=== PATIENT | female | born 1935 | race Caucasian/White ===

== ENCOUNTER 2017-02-15 06:46 | Inpatient (IN) | payer MEDICARE, MEDICAID ==
[~2017-02-15] VITALS: Ht 149.9 cm; Wt 51.3 kg
[2017-02-15] VITALS (21 sets, daily range): BP systolic 125–164; BP diastolic 70–105; PULSE 77–177; RESP 17–32; TEMP 98.9–99.7; O2SAT 92–98
[~2017-02-15 06:46] MED LIST: AMBI5TAB PO; APIX2.5T PO; BROV15NE NEB; CARA1TAB6 PO; CARD240C6 PO; ESCI10TA PO; GLIM4TAB PO; LEVA0.3110 NEB; LEVO125T4 PO; LEVO250T3 PO; METO-309 PO; POTA10TA2 PO; REGL5TAB PO; SYMB160A INH; TORS20TA PO; TRAD5TAB PO; ZANT150T2 PO
--- NOTE | 2017-02-15 07:24 | PD ---
HPI Chief Complaint: Respiratory Distress Time Seen by Provider: 07:15 Travel History International Travel<30 days: No Contact w/Intl Traveler<30days: No Traveled to known affect area: No History of Present Illness HPI The patient is English-speaking and an preservationist was offered however the daughter has refused stating that she would do the interpretation. This is an 82-year-old female with a history of atrial fibrillation, hypertension, diabetes mellitus, hyperlipidemia who presents today with complaints of dyspnea , fever, shortness of breath. The patient's daughter states that she's been coughing with productive white phlegm. Daughter also states she had a temperature of 102. There is no reported chills. There is no chest pain or chest pressure. The patient does have palpitations. The patient is only able to walk a few feet before she gets winded. Daughter states that this is worse than her baseline. PFSH Past Medical History Hx Anticoagulant Therapy: Yes Arthritis: Yes (osteoporosis) Asthma: Yes Blood Disorders: No Anxiety: No Depression: No Heart Rhythm Problems: Yes Cancer: No Cardiac Catheterization: Yes (10-01-09) Cardiovascular Problems: Yes High Cholesterol: No Chemotherapy: No Chest Pain: No Congestive Heart Failure: Yes Cirrhosis: Yes COPD: No Cerebrovascular Accident: Yes (MA; PACEMAKER) Diabetes: Yes Patient Takes Glucophage: No Diminished Hearing: No Endocrine: Yes Gastrointestinal Disorders: Yes GERD: No Genitourinary: No Headaches: No Hepatitis: Yes (hep c) Hiatal Hernia: No Hypertension: Yes Immune Disorder: No Implanted Vascular Access Dvce: Yes Kidney Stones: No Musculoskeletal: No Neurologic: No Psychiatric: No Reproductive: No Respiratory: Yes (ASTHMA) Migraines: No Myocardial Infarction: Yes Radiation Therapy: No Renal Failure: No Sickle Cell Disease: No Sleep Apnea: No Thyroid Disease: Yes Ulcer: No Tetanus Vaccination: < 5 Years Menopausal: Yes : 5 Para: 4 Miscarriage: 1 Past Surgical History Abdominal Surgery: Yes AICD: No Appendectomy: No Arteriovenous Shunt: No Body Medical Devices: PACEMAKER Cardiac Surgery: Yes (PACEMAKER) Cholecystectomy: Yes Coronary Stent: Yes (x2) Ear Surgery: Yes Eye Surgery: No Genitourinary Surgery: No Gynecologic Surgery: Yes Hysterectomy: Yes Insulin Pump: No Joint Replacement: No Oral Surgery: No Pacemaker: Yes Thoracic Surgery: No Other Surgery: Yes (STENTS PLACED) Social History Alcohol Use: No Tobacco Use: No Substance Use: No Allergies-Medications (Allergen,Severity, Reaction): Coded Allergies: Penicillin (Verified Allergy, Severe, Anaphylaxis, 02/15/17) Reported Meds & Prescriptions Reported Meds & Active Scripts Active Ambien (Zolpidem Tartrate) 5 Mg Tab 5 Mg PO HS PRN Reglan (Metoclopramide HCl) 5 Mg Tab 5 Mg PO TIDAC 30 Days Lopressor (Metoprolol Tartrate) 50 Mg Tab 50 Mg PO BID Escitalopram (Escitalopram Oxalate) 10 Mg Tab 5 Mg PO HS Cardizem CD 24 HR (Diltiazem CD 24 HR) 240 Mg Caper 240 Mg PO DAILY Reported Eliquis (Apixaban) 2.5 Mg Tab 2.5 Mg PO BID Glimepiride 4 Mg Tab 4 Mg PO BIDAC Zantac (Ranitidine HCl) 150 Mg Tab 150 Mg PO DAILY Brovana Neb (Arformoterol Neb) 15 Mcg/2 Ml Vial 1 Nebule NEB BID Maintenance treatment of bronchoconstriction in COPD. Levothyroxine (Levothyroxine Sodium) 125 Mcg Tab 125 Mcg PO DAILY Torsemide 20 Mg Tab 20 Mg PO DAILY Potassium Chloride ER (Potassium Chloride) 10 Meq Tab 10 Meq PO DAILY Xopenex Neb (Levalbuterol HCl) 0.31 Mg/3 Ml Neb 0.31 Mg NEB QID Symbicort Inh (Budesonide/Formoterol Fumarate) 160-4.5 Mcg/Act Aero 2 Puff INH BID Review of Systems Except as stated in HPI: all other systems reviewed are Neg General / Constitutional: No: Fever HENT: No: Headaches, Lightheadedness Cardiovascular: Positive: Palpitations, Irregular Rhythm, No: Chest Pain or Discomfort Respiratory: Positive: Cough (right productive phlegm), Shortness of Breath, No: Wheezing Gastrointestinal: No: Nausea, Vomiting, Abdominal Pain Genitourinary: No: Frequency, Dysuria Musculoskeletal: Positive: Weakness, No: Pain (generalized) Neurologic: Positive: Weakness (Gen.), No: Dizziness, Syncope, Headache Endocrine: No: Polyuria, Polydipsia Physical Exam Narrative GENERAL: Developed well-nourished female in no acute respiratory distress. SKIN: Warm and dry. HEAD: Atraumatic. Normocephalic. EYES: No scleral icterus. No injection or drainage. ENT: Mucous membranes pink and moist. NECK: Trachea midline. No JVD. CARDIOVASCULAR: Irregularly irregular rhythm with a rate of 160s. RESPIRATORY: No accessory muscle use. Rales appreciated at the left lung base. Right lung base decreased breath sounds. GASTROINTESTINAL: Abdomen soft, non-tender, nondistended. MUSCULOSKELETAL: No obvious deformities. No clubbing. No cyanosis. No edema. NEUROLOGICAL: Awake and alert. No obvious cranial nerve deficits. Motor grossly within normal limits. Normal speech. PSYCHIATRIC: Appropriate mood and affect; insight and judgment normal. Data Data Last Documented VS Vital Signs Date Time Temp Pulse Resp B/P Pulse Ox O2 Delivery O2 Flow Rate FiO2 02/15/17 08:47 130 23 148/89 97 Nasal Cannula 3 02/15/17 06:53 99.7 Orders Ecg Monitoring (02/15/17 07:17) Blood Pressure (02/15/17 07:17) Iv Access Insert/Monitor (02/15/17 07:17) Oximetry (02/15/17 07:17) Vital Signs (02/15/17 07:17) Diltiazem Inj (Cardizem Inj) (02/15/17 07:30) Diltiazem Inj (Cardizem Inj) (02/15/17 07:30) Sodium Chloride 0.9% Flush (Ns Flush) (02/15/17 07:30) Electrocardiogram (02/15/17 07:17) Basic Metabolic Panel (Bmp) (02/15/17 07:17) Ckmb (Isoenzyme) Profile (02/15/17 07:17) Complete Blood Count With Diff (02/15/17 07:17) Magnesium (Mg) (02/15/17 07:17) Prothrombin Time / Inr (Pt) (02/15/17 07:17) Act Partial Throm Time (Ptt) (02/15/17 07:17) Troponin I (02/15/17 07:17) Chest, Single Ap (02/15/17 07:17) Bilateral Bp Monitoring (02/15/17 07:17) Oxygen Administration (02/15/17 07:17) Sodium Chloride 0.9% Flush (Ns Flush) (02/15/17 07:30) Blood Culture (02/15/17 07:24) Lactic Acid Sepsis Protocol (02/15/17 07:24) Diltiazem Inj (Cardizem Inj) (02/15/17 07:45) CKMB (02/15/17 07:28) CKMB% (02/15/17 07:28) Admit To Inpatient (02/15/17 ) Inpatient Certification (02/15/17 ) Apixaban (Eliquis) (02/15/17 09:00) Budeson-Formot 160-4.5 Mg Inh (Symbicort (02/15/17 09:00) Escitalopram (Lexapro) (02/15/17 21:00) Glimepiride (Amaryl) (02/15/17 16:00) Levothyroxine (Synthroid) (02/15/17 09:00) Metoprolol Tartrate (Lopressor) (02/15/17 09:00) Potassium Chloride (Kcl) (02/15/17 09:00) Zolpidem (Ambien) (02/15/17 09:00) (Nf) Arformoterol Neb (Brovana Neb) (02/15/17 09:00) (Nf) Levalbuterol Neb (Xopenex Neb) (02/15/17 09:00) (Nf) Metoclopramide (Reglan) (02/15/17 12:00) B-Type Natriuretic Peptide (02/15/17 09:01) Admit Order (Ed Use Only) (02/15/17 09:13) Labs Laboratory Tests Test 02/15/17 02/15/17 07:28 08:10 White Blood Count 8.3 TH/MM3 Red Blood Count 4.03 MIL/MM3 Hemoglobin 10.9 GM/DL Hematocrit 32.9 % Mean Corpuscular Volume 81.6 FL Mean Corpuscular Hemoglobin 27.1 PG Mean Corpuscular Hemoglobin 33.2 % Concent Red Cell Distribution Width 16.2 % Platelet Count 106 TH/MM3 Mean Platelet Volume 10.1 FL Neutrophils (%) (Auto) 70.5 % Lymphocytes (%) (Auto) 15.2 % Monocytes (%) (Auto) 13.5 % Eosinophils (%) (Auto) 0.0 % Basophils (%) (Auto) 0.8 % Neutrophils # (Auto) 5.8 TH/MM3 Lymphocytes # (Auto) 1.3 TH/MM3 Monocytes # (Auto) 1.1 TH/MM3 Eosinophils # (Auto) 0.0 TH/MM3 Basophils # (Auto) 0.1 TH/MM3 CBC Comment DIFF FINAL Differential Comment Prothrombin Time 14.0 SEC Prothromb Time International 1.3 RATIO Ratio Activated Partial 31.2 SEC Thromboplast Time Sodium Level 133 MEQ/L Potassium Level 3.6 MEQ/L Chloride Level 97 MEQ/L Carbon Dioxide Level 27.8 MEQ/L Anion Gap 8 MEQ/L Blood Urea Nitrogen 15 MG/DL Creatinine 1.32 MG/DL Estimat Glomerular Filtration 38 ML/MIN Rate Random Glucose 175 MG/DL Calcium Level 8.7 MG/DL Magnesium Level 1.5 MG/DL Total Creatine Kinase 179 U/L Creatine Kinase MB 1.8 NG/ML Troponin I 0.02 NG/ML Lactic Acid Level 1.5 mmol/L [facility] Medical Decision Making Medical Screen Exam Complete: Yes Emergency Medical Condition: Yes Differential Diagnosis A. fib with RVR versus pneumonia versus CHF versus ACS Narrative Course 82-year-old female with history of A. fib, hypertension, hyperlipidemia, diabetes mellitus, chronic kidney injury, presents today with complaints of shortness of breath. There is also reported fever of 102 at home. Patient stopped hemp was low-grade 99.8.. Chest x-ray shows atelectasis with no obvious infiltrate or CHF. EKG initially showed A. fib with rapid ventricular rate in the 160s. She's been given 2 doses of IVD diltiazem and placed on an IVD diltiazem drip. She'll be admitted to the [facility]. Cardiac enzymes are within normal limits. Lactic acid is 1.5. Creatinine is 1.3 which is slightly above her baseline. The case was discussed with Dr. Savi Macias, who is gracious enough to admit the patient to her service. Sepsis Criteria SIRS Criteria (2 or more): Heart rate over 90, RR > 20 or PaCO2 < 32 Diagnosis Primary Impression: Atrial fibrillation with rapid ventricular response Additional Impressions: Acute kidney injury superimposed on chronic kidney disease DM (diabetes mellitus) History of hypertension History of hyperlipidemia reported fever Armando Montero MD Feb 15, 2017 07:24
[2017-02-15] MEDS ORDERED: DILTIAZEM HCL 25 MG/5 ML VIAL IV PUSH ONE (07:30)
[2017-02-15] MEDS ORDERED: SODIUM CHLORIDE 0.9% FLUSH 5 ML FLUSH IVF PRN (07:30)
[2017-02-15] MEDS ORDERED: DILTIAZEM HCL 50 MG/10 ML VIAL IV PUSH ONE (07:45)
[2017-02-15 07:47] LABS: AUTOMATED NEUTROPHIL # 5.8 TH/MM3 (1.8-7.7); BASOPHIL # 0.1 TH/MM3 (0-0.2); BASOPHIL % 0.8 % (0.0-2.0); HEMATOCRIT 32.9 % (35.0-46.0); HEMO FLAGS DIFF FINAL; LYMPH % 15.2 % (9.0-44.0); LYMPHOCYTE # 1.3 TH/MM3 (1.0-4.8); MEAN CELL VOLUME 81.6 FL (80.0-100.0); MEAN CORPUSCULAR HEMOGLOBIN 27.1 PG (27.0-34.0); MEAN CORPUSCULAR HGB CONC 33.2 % (32.0-36.0); MONO % 13.5 % (0.0-8.0); NEUT % 70.5 % (16.0-70.0); PLATELET COUNT 106 TH/MM3 (150-450); RED BLOOD COUNT 4.03 MIL/MM3 (4.00-5.30); RED CELL DISTRIBUTION WIDTH 16.2 % (11.6-17.2); WHITE BLOOD COUNT 8.3 TH/MM3 (4.0-11.0)
--- NOTE | 2017-02-15 07:49 | RADRPT ---
EXAM DATE/TIME: 02/15/2017 07:28 [place] COMPARISON: CHEST SINGLE AP, November 23, 2016, 0:53. INDICATIONS : Patient has been short of breath since last night. MEDICAL HISTORY : Cardiovascular disease. Diabetes mellitus type 2. Osteoporosis.Hepatitis SURGICAL HISTORY : Hysterectomy. Cholecystectomy.Pacemaker. ENCOUNTER: Initial ACUITY: 1 day PAIN SCORE: 0/10 LOCATION: chest FINDINGS: Pacemaker device is noted with control pack over the left chest. There is slight streaky opacity at t he left base which may be scarring, similar to prior. Lungs are otherwise clear. No significant effus ion suspected. Cardiac contours are stable. CONCLUSION: Slight probable scarring at the left base. Ismael Bee MD on February 15, 2017 at 7:47 Board Certified Radiologist. This report was verified electronically.
[2017-02-15] MEDS: DILTIAZEM INJ 125 MG in SODIUM CHLORIDE 0.9% INJ 100 ML IV SCH ×2 (07:56→17:20)
[2017-02-15 08:00] LABS: APTT (PATIENT) 31.2 SEC (24.3-30.1); INTERNATIONAL NORMALIZED RATIO 1.3 RATIO
[2017-02-15 08:09] LABS: ANION GAP 8 MEQ/L (5-15); BICARBONATE 27.8 MEQ/L (21.0-32.0); BLOOD UREA NITROGEN 15 MG/DL (7-18); CHLORIDE 97 MEQ/L (98-107); GLOMERULAR FILTRATION RATE 38 ML/MIN (>89); MAGNESIUM 1.5 MG/DL (1.5-2.5); POTASSIUM 3.6 MEQ/L (3.5-5.1); SODIUM (NA) 133 MEQ/L (136-145)
[2017-02-15 08:12] LABS: CREATINE KINASE 179 U/L (26-192)
[2017-02-15 08:24] LABS: CKMB 1.8 NG/ML (0.5-3.6)
[2017-02-15] MEDS ORDERED: ZOLPIDEM TARTRATE 5 MG TAB PO PRN (09:00)
[2017-02-15] MEDS: METOPROLOL TARTRATE 50 MG TAB PO SCH ×2 (12:00→21:19)
[2017-02-15] MEDS ORDERED: PILL SPLITTER OTHER PRN (12:00)
[2017-02-15] MEDS: LEVOTHYROXINE SODIUM 125 MCG TAB PO SCH (12:00)
[2017-02-15] MEDS: POTASSIUM CHLORIDE 10 MEQ CONTROLLED RELEASE TAB PO SCH ×2 (12:00→12:01)
--- NOTE | 2017-02-15 12:08 | EKG ---
Date Performed: 02/15/2017 Time Performed: 07:55:09 PTAGE: 82 years EKG: ATRIAL FIBRILLATION WITH RAPID VENTRICULAR RESPONSE NONSPECIFIC ST & T-WAVE ABNORMALITY ABN ORMAL RHYTHM ECG PREVIOUS TRACING : 02/15/2017 07.10 DOCTOR: Brett Monsivais Interpretating Date/Time 02/15/2017 12:06:07
--- NOTE | 2017-02-15 12:08 | EKG ---
Date Performed: 02/15/2017 Time Performed: 07:10:35 PTAGE: 82 years EKG: ATRIAL FIBRILLATION WITH RAPID VENTRICULAR RESPONSE ST DEVIATION AND MODERATE T-WAVE ABNORM ALITY, CONSIDER LATERAL ISCHEMIA ST DEVIATION AND MODERATE T-WAVE ABNORMALITY, CONSIDER INFERIOR ISCH EMIA ABNORMAL ECG PREVIOUS TRACING : 02/15/2017 07.05 DOCTOR: Brett Monsivais Interpretating Date/Time 02/15/2017 12:06:14
[2017-02-15] MEDS: APIXABAN 2.5 MG TABLET PO SCH ×2 (12:15→21:19)
[2017-02-15] MEDS: BUDESONIDE-FORMOTEROL 160/4.5 MCG INHALER INH SCH ×2 (12:15→21:30)
--- NOTE | 2017-02-15 12:35 | HHI.HP ---
HPI Service [facility] Primary Care Physician Rolo Minaya M.D. Admission Diagnosis afib with rvr, acute on chronic kidney injury, htn, diabetes, hyperl Diagnoses: Chief Complaint: Fever and chills, productive cough Travel History International Travel<30 Days: No Contact w/Intl Traveler <30 Da: No Traveled to Known Affected Are: No Sepsis Criteria SIRS Criteria (2 or more): Temp > 100.9 or < 96.8, Heart rate over 90 History of Present Illness Patient is a very pleasant 82-year-old female with known history of CAD, hyperreactive airway disease O2 dependent at bedtime, history of liver cirrhosis secondary to hepatitis C, hypothyroidism who presented to the ER complaining of fever and chills. Patient is seen at bedside with daughter who interpreted for us as patient is Hebrew-speaking. As stated for the past 3 days has been coughing with chills 101-2102 degrees associated with cough productive of yellowish sputum. Due to severe cough patient was unable to sleep at night. Finally came to the emergency room where on evaluation was noted to be in rapid ventricular rate. Patient with history of chronic A. fib on beta julita and calcium channel julita. Per her blood sugars are well controlled from readings 80s to 130s. Good hypoglycemic awareness. Very independent occasionally uses a walker when on long walks. She uses oxygen only at bedtime. Patient admitted for further evaluation and management. Review of Systems Constitutional: DENIES: Diaphoretic episodes, Fatigue, Fever, Weight gain, Weight loss, Chills, Dizziness, Change in appetite, Night Sweats Endocrine: DENIES: Abnorml menstrual pattern, Heat/cold intolerance, Polydipsia , Polyuria, Polyphagia Eyes: DENIES: Blurred vision, Diplopia, Eye inflammation, Eye pain, Vision loss , Photosensitivity, Double Vision Ears, nose, mouth, throat: DENIES: Tinnitus, Hearing loss, Vertigo, Nasal discharge, Oral lesions, Throat pain, Hoarseness, Ear Pain, Running Nose, Epistaxis, Sinus Pain, Toothache, Odynophagia Respiratory: COMPLAINS OF: Cough Cardiovascular: DENIES: Chest pain, Palpitations, Syncope, Dyspnea on Exertion , PND, Lower Extremity Edema, Orthopnea, Claudication Gastrointestinal: DENIES: Abdominal pain, Black stools, Bloody stools, Constipation, Diarrhea, Nausea, Vomiting, Difficulty Swallowing, Anorexia Genitourinary: DENIES: Abnormal vaginal bleeding, Dysmenorrhea, Dyspareunia, Sexual dysfunction, Urinary frequency, Urinary incontinence, Urgency, Hematuria , Dysuria, Nocturia, Vaginal discharge Musculoskeletal: DENIES: Joint pain, Muscle aches, Stiffness, Joint Swelling, Back pain, Neck pain Integumentary: DENIES: Abnormal pigmentation, Pruritus, Rash, Nail changes, Breast masses, Breast skin changes, Nipple discharge Hematologic/lymphatic: DENIES: Bruising, Lymphadenopathy Immunologic/allergic: DENIES: Eczema, Urticaria Neurologic: DENIES: Abnormal gait, Headache, Localized weakness, Paresthesias, Seizures, Speech Problems, Tremor, Poor Balance Psychiatric: DENIES: Anxiety, Confusion, Mood changes, Depression, Hallucinations, Agitation, Suicidal Ideation, Homicidal Ideation, Delusions Past Family Social History Past Medical History History of coronary artery disease status post AK in August 2009 at bedtime also had an angiogram done and stents were placed on 10/01/09. History of hypothyroidism History of hyperreactive airway disease O2 dependent at bedtime History of liver cirrhosis secondary to hepatitis C History of atrial fibrillation Past Surgical History Hysterectomy Cholecystectomy Reported Medications Symbicort inhaler 2 puffs twice a Xopenex 2 puffs every 6 hours when necessary Torsemide 20 mg daily Synthroid 125 g daily Brovana 15 mc/2 mil 1 amp bid nebilization prn Zantac 150 milligrams daily Pro Air metered-dose inhaler 2 puffs daily Glimepiride 4 mg twice a day Metoprolol 50 mg twice a day Potassium chloride 10 mEq daily Cardizem CD 180 mg daily Lisinopril 20 mg daily Allergies: Coded Allergies: Penicillin (Verified Allergy, Severe, Anaphylaxis, 02/15/17) Family History Noncontributory Social History Denies smoking,Alcohol or substance abuse Physical Exam Vital Signs Vital Signs Date Time Temp Pulse Resp B/P Pulse Ox O2 Delivery O2 Flow Rate FiO2 02/15/17 12:02 110 17 157/70 98 Nasal Cannula 3 02/15/17 10:42 112 20 149/86 97 Nasal Cannula 3 02/15/17 09:30 110 20 150/96 98 Nasal Cannula 3 02/15/17 08:47 130 23 148/89 97 Nasal Cannula 3 02/15/17 07:40 97 Nasal Cannula 2 02/15/17 07:40 148 22 156/105 97 Nasal Cannula 2 02/15/17 07:40 Nasal Cannula 2 02/15/17 06:57 123 25 92 Room Air 02/15/17 06:53 99.7 25 164/101 92 02/15/17 06:51 177 32 134/89 93 Physical Exam GENERAL: Awake and alert resting comfortably on 2 L nasal cannula SKIN: No rashes, ecchymoses or lesions. Cool and dry. HEAD: Atraumatic. Normocephalic. No temporal or scalp tenderness. EYES: Pupils equal round and reactive. Extraocular motions intact. No scleral icterus. No injection or drainage. ENT: Nose without bleeding. Throat without erythema, tonsillar hypertrophy or exudate. Uvula midline. Airway patent. NECK: Trachea midline. No JVD or lymphadenopathy. Supple, nontender, no meningeal signs. CARDIOVASCULAR: Irregularly irregular rhythm RESPIRATORY: Decreased Breath sounds equal bilaterally. No wheezes, rales, or rhonchi. GASTROINTESTINAL: Abdomen soft, non-tender, nondistended. No hepato-splenomegaly , or palpable masses. No guarding. MUSCULOSKELETAL: Extremities without clubbing, cyanosis, or edema. No joint tenderness, effusion, or edema noted. No calf tenderness. Negative Homans sign bilaterally. NEUROLOGICAL: Awake and alert. Cranial nerves II through XII intact. Motor and sensory grossly within normal limits. Five out of 5 muscle strength in all muscle groups. Normal speech. Laboratory Laboratory Tests Test 02/15/17 02/15/17 02/15/17 07:25 07:28 08:10 B-Type Natriuretic Peptide 554 White Blood Count 8.3 Red Blood Count 4.03 Hemoglobin 10.9 Hematocrit 32.9 Mean Corpuscular Volume 81.6 Mean Corpuscular Hemoglobin 27.1 Mean Corpuscular Hemoglobin 33.2 Concent Red Cell Distribution Width 16.2 Platelet Count 106 Mean Platelet Volume 10.1 Neutrophils (%) (Auto) 70.5 Lymphocytes (%) (Auto) 15.2 Monocytes (%) (Auto) 13.5 Eosinophils (%) (Auto) 0.0 Basophils (%) (Auto) 0.8 Neutrophils # (Auto) 5.8 Lymphocytes # (Auto) 1.3 Monocytes # (Auto) 1.1 Eosinophils # (Auto) 0.0 Basophils # (Auto) 0.1 CBC Comment DIFF FINAL Differential Comment Prothrombin Time 14.0 Prothromb Time International 1.3 Ratio Activated Partial 31.2 Thromboplast Time Sodium Level 133 Potassium Level 3.6 Chloride Level 97 Carbon Dioxide Level 27.8 Anion Gap 8 Blood Urea Nitrogen 15 Creatinine 1.32 Estimat Glomerular Filtration 38 Rate Random Glucose 175 Calcium Level 8.7 Magnesium Level 1.5 Total Creatine Kinase 179 Creatine Kinase MB 1.8 Troponin I 0.02 Lactic Acid Level 1.5 Date/Time Procedure Status Source Growth 02/15/17 08:15 Aerobic Blood Culture Received Blood Peripheral Pending 02/15/17 08:15 Anaerobic Blood Culture Received Blood Peripheral Pending Result Diagram: 02/15/1772702/15/17727 Imaging Last Impressions Chest X-Ray 02/15/17716 Signed Impressions: Service Date/Time: Wednesday, February 15, 2017 07:28 - CONCLUSION: Slight probable scarring at the left base. Ismael Bee MD Septic Shock Reassessment Heart: Irregular Lungs: Diminished Skin: Warm Peripheral Pulses: Bounding Right Radial Bounding Left Radial Bounding Right Popliteal Bounding Left Popliteal Bounding Right Dorsalis Pedis Bounding Left Dorsalis Pedis Bounding Right Posterior Tibial Bounding Left Posterior Tibial Capillary Refill: Brisk Assessment and Plan Assessment and Plan 82-year-old female presenting with fever chills cough at bedside productive of thick yellowish sputum Atrial fibrillation in RVR with history of chronic A. fib . Accelerated rate triggered by infection History of CAD status post stent patient currently on Cardizem drip - transition to po in am restart her on Lopressor 50 mg twice a day Restart her on twice Eliquis bid Pneumonia community-acquired Send sputum for Gram stain Start patient o IV Zithromax. Levaquin po Robitussin DM prn for cough Acute kidney injury- creatinine increased from baseline Will hold off on diuretics for now- torsemide Hyperreactive airway disease in remission continue on nebulization and inhalers from home History of diabetes type 2 continue on glimepiride twice a day History of hypothyroidism continue on Synthroid 100 sunday 25 g daily History of liver cirrhosis- no encephalopathy History of thrombocytopenia this is chronic likely from liver cirrhosis Admitted to [facility] and monitor Discussed Condition With Patient and daughter at bedside Physician Certification 2 Midnight Certification Type: Admission for Inpatient Services Order for Inpatient Services The services are ordered in accordance with Medicare regulations or non- Medicare payer requirements, as applicable. In the case of services not specified as inpatient-only, they are appropriately provided as inpatient services in accordance with the 2-midnight benchmark. Estimated LOS (days): 3 days is the estimated time the patient will need to remain in the hospital, assuming treatment plan goals are met and no additional complications. Post-Hospital Plan: Not yet determined Georgette Macias MD Feb 15, 2017 12:35 Georgette Macias MD Feb 15, 2017 12:35
[2017-02-15] MEDS: AZITHROMYCIN INJ 500 MG in SODIUM CHLOR 0.9% 250 ML INJ 250 ML IV SCH (14:24)
[2017-02-15] MEDS: guaiFENesin/DEXTROMETHORPHAN 200 MG/20 MG/10 ML CUP PO SCH ×3 (14:25→21:19)
[2017-02-15] MEDS: LEVOFLOXACIN 750 MG TAB PO SCH (15:03)
[2017-02-15] MEDS: METOCLOPRAMIDE HCL 10 MG TAB PO SCH (15:52)
[2017-02-15] MEDS: ESCITALOPRAM OXALATE 10 MG TAB PO SCH (21:19)
[2017-02-15] MEDS: SODIUM CHLORIDE 0.9% FLUSH 5 ML FLUSH IVF PRN (21:24)
[2017-02-15] MEDS: ARFORMOTEROL NEB SCH (23:44)
[2017-02-15] MEDS: LEVALBUTEROL NEB SCH (23:45)
[2017-02-16] VITALS (26 sets, daily range): BP systolic 116–157; BP diastolic 65–91; PULSE 68–106; RESP 18–20; TEMP 97.6–98.9; O2SAT 94–99
[2017-02-16] MEDS: guaiFENesin/DEXTROMETHORPHAN 200 MG/20 MG/10 ML CUP PO SCH ×6 (01:04→20:17)
[2017-02-16] MEDS: LEVOTHYROXINE SODIUM 125 MCG TAB PO SCH (05:44)
[2017-02-16 06:36] LABS: ANION GAP 10 MEQ/L (5-15); BICARBONATE 30.2 MEQ/L (21.0-32.0); BLOOD UREA NITROGEN 17 MG/DL (7-18); CHLORIDE 97 MEQ/L (98-107); GLOMERULAR FILTRATION RATE 44 ML/MIN (>89); POTASSIUM 3.5 MEQ/L (3.5-5.1); SODIUM (NA) 137 MEQ/L (136-145)
[2017-02-16] MEDS: LEVALBUTEROL NEB SCH ×4 (08:02→21:23)
[2017-02-16] MEDS: ARFORMOTEROL NEB SCH ×2 (08:02→20:00)
[2017-02-16] MEDS: METOPROLOL TARTRATE 50 MG TAB PO SCH ×2 (08:16→20:06)
[2017-02-16] MEDS: APIXABAN 2.5 MG TABLET PO SCH ×2 (08:18→20:06)
[2017-02-16] MEDS: POTASSIUM CHLORIDE 10 MEQ CONTROLLED RELEASE TAB PO SCH (08:18)
[2017-02-16] MEDS: LISINOPRIL 20 MG TAB PO SCH (08:18)
[2017-02-16] MEDS: BUDESONIDE-FORMOTEROL 160/4.5 MCG INHALER INH SCH (08:18)
[2017-02-16] MEDS: METOCLOPRAMIDE HCL 10 MG TAB PO SCH ×3 (08:20→17:47)
--- NOTE | 2017-02-16 08:29 | HHI.PR ---
Subjective Remarks cough - - bringing up now more whitish sputum telemetry- a fib on Cardizem drip 10 mg/hr HR in the 80s Objective Vitals Vital Signs Date Time Temp Pulse Resp B/P Pulse Ox O2 Delivery O2 Flow Rate FiO2 02/16/17 08:03 95 Nasal Cannula 2.00 02/16/17 07:00 93 02/16/17 07:00 98.6 105 20 157/65 97 02/16/17 06:15 94 02/16/17 05:43 92 02/16/17 04:35 102 02/16/17 03:00 97.6 92 18 141/86 99 02/16/17 03:00 96 02/16/17 02:00 94 02/16/17 01:00 82 02/16/17 00:00 98 02/15/17 23:46 98 Nasal Cannula 2.00 02/15/17 23:00 82 02/15/17 23:00 98.9 87 20 125/70 95 02/15/17 22:00 106 02/15/17 21:00 96 02/15/17 20:00 98 02/15/17 20:00 98 Nasal Cannula 3.00 02/15/17 19:41 98 02/15/17 18:00 106 02/15/17 17:00 96 02/15/17 16:00 88 02/15/17 15:27 98 Nasal Cannula 3.00 02/15/17 15:00 77 02/15/17 15:00 99.6 80 22 140/91 98 02/15/17 14:00 90 02/15/17 13:36 96 02/15/17 13:15 99.7 107 19 138/83 96 02/15/17 12:55 90 17 138/70 98 Nasal Cannula 3 02/15/17 12:02 110 17 157/70 98 Nasal Cannula 3 02/15/17 10:42 112 20 149/86 97 Nasal Cannula 3 02/15/17 09:30 110 20 150/96 98 Nasal Cannula 3 02/15/17 08:47 130 23 148/89 97 Nasal Cannula 3 I/O 02/15/17 02/15/17 02/15/17 02/16/17 02/16/17 02/16/17 07:00 15:00 23:00 07:00 15:00 23:00 Intake Total 120 ml 460 ml 700 ml Balance 120 ml 460 ml 700 ml Intake Oral 120 ml 240 ml 600 ml IV Total 220 ml 100 ml # Voids 1 3 # Bowel Movements 1 0 Result Diagram: 02/15/17 0728 02/16/17 0551 Imaging Last Impressions Chest X-Ray 02/15/17716 Signed Impressions: Service Date/Time: Wednesday, February 15, 2017 07:28 - CONCLUSION: Slight probable scarring at the left base. Ismael Bee MD Objective Remarks awake and alert, slightly tachypneic anicteric lungs- with rhonchis irregularly irregular rhythm abdomen soft, good bowel sounds extremities no edema A/P Assessment and Plan 82-year-old female presenting with fever chills cough at bedside productive of thick yellowish sputum Atrial fibrillation in RVR with history of chronic A. fib . Accelerated rate triggered by infection History of CAD status post stent HYpertension patient currently on Cardizem drip - transition to po =- change to 60 mg po 6 continue on her Lopressor 50 mg twice a day continue on МАРИЯ Eliquis bid on KCL 10 meq po daily Pneumonia community-acquired Send sputum for Gram stain on IV Zithromax. Levaquin po Tussionex bid Acute kidney injury- creatinine increased from baseline- creatinine down restart Torsemide Hyperreactive airway disease - rhonchis on exam COPD -2 dependent start Solumedrol- short course continue on nebulization and inhalers History of diabetes type 2 continue on glimepiride twice a day ff BS with low dose sliding scale History of hypothyroidism continue on Synthroid 100 sunday 25 g daily History of liver cirrhosis- no encephalopathy History of thrombocytopenia this is chronic likely from liver cirrhosis Georgette Macias MD Feb 16, 2017 08:29
[2017-02-16] MEDS ORDERED: POTASSIUM CHLORIDE 10 MEQ CONTROLLED RELEASE TAB PO ONE (08:45)
[2017-02-16] MEDS: CHLORPHENIR/HYDROCOD LIQUID 8 MG/10 MG/5 ML CUP PO SCH ×2 (09:40→20:07)
[2017-02-16] MEDS: methylPREDNISolone SOD SUCC 40 MG/1 ML VIAL IV PUSH SCH ×3 (09:40→20:17)
[2017-02-16] MEDS: DILTIAZEM HCL 60 MG TAB PO SCH ×4 (09:41→23:40)
[2017-02-16] MEDS: AZITHROMYCIN INJ 500 MG in SODIUM CHLOR 0.9% 250 ML INJ 250 ML IV SCH (13:28)
[2017-02-16 17:26] LABS: HEMOGLOBIN A1a 0.8 %; HEMOGLOBIN A1b 0.8 %; HEMOGLOBIN Ao 86.5 %; HEMOGLOBIN F 0.8 %; HEMOGLOBIN LA1C 1.2 %; HEMOGLOBIN P3 3.5 %
[2017-02-16] MEDS: LOW DOSE INSULIN NOVOLOG SUPPLEMENTAL SCALE SQ SCH ×2 (18:26→20:15)
[2017-02-16] MEDS ORDERED: GLUCAGON 1 MG/ML VIAL OTHER PRN (18:30)
[2017-02-16] MEDS ORDERED: DEXTROSE 50% IN WATER 50 ML VIAL(D50) IV PUSH PRN (18:30)
[2017-02-16] MEDS: ESCITALOPRAM OXALATE 10 MG TAB PO SCH (20:06)
[2017-02-17] VITALS (26 sets, daily range): BP systolic 137–153; BP diastolic 86–99; PULSE 56–116; RESP 16–20; TEMP 98.2–98.5; O2SAT 96–99
[2017-02-17] MEDS: guaiFENesin/DEXTROMETHORPHAN 200 MG/20 MG/10 ML CUP PO SCH ×6 (02:00→22:00)
[2017-02-17] MEDS: LEVALBUTEROL NEB SCH (04:00)
[2017-02-17] MEDS: LOW DOSE INSULIN NOVOLOG SUPPLEMENTAL SCALE SQ SCH ×4 (05:41→21:07)
[2017-02-17] MEDS: methylPREDNISolone SOD SUCC 40 MG/1 ML VIAL IV PUSH SCH (05:42)
[2017-02-17] MEDS: LEVOTHYROXINE SODIUM 125 MCG TAB PO SCH (05:43)
[2017-02-17] MEDS: DILTIAZEM HCL 60 MG TAB PO SCH (05:43)
--- NOTE | 2017-02-17 08:07 | HHI.PR ---
Subjective Remarks states breathing much better sputum minimal-"mas mejor" hungry Objective Vitals Vital Signs Date Time Temp Pulse Resp B/P Pulse Ox O2 Delivery O2 Flow Rate FiO2 02/17/17 06:00 68 02/17/17 05:00 85 02/17/17 04:00 84 02/17/17 03:00 98.2 84 18 137/92 96 02/17/17 03:00 91 02/17/17 02:00 72 02/17/17 01:00 78 02/17/17 00:00 86 02/16/17 23:00 98.9 92 18 125/79 94 02/16/17 23:00 93 02/16/17 22:00 68 02/16/17 21:00 76 02/16/17 20:00 74 02/16/17 19:30 98.2 102 18 116/75 97 02/16/17 19:00 97 Nasal Cannula 2.50 02/16/17 19:00 106 02/16/17 18:00 105 02/16/17 17:00 96 02/16/17 16:00 104 02/16/17 15:00 98.2 74 18 123/84 98 02/16/17 15:00 93 02/16/17 14:00 94 02/16/17 13:00 94 02/16/17 12:00 78 02/16/17 11:00 77 02/16/17 11:00 97.9 75 20 141/91 98 02/16/17 10:00 86 02/16/17 09:00 90 I/O 02/16/17 02/16/17 02/16/17 02/17/17 02/17/17 02/17/17 07:00 15:00 23:00 07:00 15:00 23:00 Intake Total 700 ml 710 ml 700 ml Balance 700 ml 710 ml 700 ml Intake Oral 600 ml 710 ml 700 ml IV Total 100 ml 0 ml # Voids 3 4 2 # Bowel Movements 0 0 Result Diagram: 02/15/1728 02/16/17 0551 Imaging Last Impressions Chest X-Ray 02/15/17716 Signed Impressions: Service Date/Time: Wednesday, February 15, 2017 07:28 - CONCLUSION: Slight probable scarring at the left base. Ismael Bee MD Objective Remarks awake and alert, NAD anicteric lungs- few rhonchi, no wheezes irregularly irregular rhythm- HR 82 abdomen soft, good bowel sounds extremities no edema A/P Assessment and Plan 82-year-old female presenting with fever chills cough at bedside productive of thick yellowish sputum Atrial fibrillation in RVR with history of chronic A. fib . - rate controlled History of CAD status post stent HYpertension change to po Cardizem 240 mg CD daily- off drip overnight continue on her Lopressor 50 mg twice a day continue on МАРИЯ Eliquis bid on KCL 10 meq po daily Pneumonia community-acquired on IV Zithromax. Levaquin po Tussionex bid Acute kidney injury- creatinine increased from baseline- creatinine down restart Torsemide at 5 mg daily Hyperreactive airway disease - rhonchis on exam COPD exacerbation- 02 dependent change to po Prednisone on nebulization- not being administered and inhalers- called pharmacy- Xopenex- medically necessary History of diabetes type 2 restart her glimepiride twice a day elevated BS due to steroids ff BS with low dose sliding scale History of hypothyroidism continue on Synthroid History of liver cirrhosis- no encephalopathy History of thrombocytopenia this is chronic likely from liver cirrhosis Increase activity and monitor HR- per patient ambulates with a walker. PT consult Georgette Macias MD Feb 17, 2017 08:07
[2017-02-17] MEDS ORDERED: LEVALBUTEROL HYDROCHLORIDE NEB ONE (08:30)
[2017-02-17] MEDS ORDERED: DILTIAZEM-CD 240 MG CAP ER PO SCH (09:00)
[2017-02-17] MEDS: METOPROLOL TARTRATE 50 MG TAB PO SCH ×2 (09:30→21:02)
[2017-02-17] MEDS: APIXABAN 2.5 MG TABLET PO SCH ×2 (09:31→21:02)
[2017-02-17] MEDS: POTASSIUM CHLORIDE 10 MEQ CONTROLLED RELEASE TAB PO SCH (09:31)
[2017-02-17] MEDS: LISINOPRIL 20 MG TAB PO SCH (09:31)
[2017-02-17] MEDS: CHLORPHENIR/HYDROCOD LIQUID 8 MG/10 MG/5 ML CUP PO SCH ×2 (09:35→21:02)
[2017-02-17] MEDS: METOCLOPRAMIDE HCL 10 MG TAB PO SCH ×3 (09:35→16:24)
[2017-02-17] MEDS: TORSEMIDE 5 MG TAB PO SCH (09:35)
[2017-02-17] MEDS: ARFORMOTEROL NEB SCH ×2 (09:38→20:00)
[2017-02-17] MEDS: BUDESONIDE-FORMOTEROL 160/4.5 MCG INHALER INH SCH ×2 (09:41→21:00)
[2017-02-17] MEDS: LEVALBUTEROL HYDROCHLORIDE NEB ×4 (11:06→20:58)
[2017-02-17] MEDS: AZITHROMYCIN INJ 500 MG in SODIUM CHLOR 0.9% 250 ML INJ 250 ML IV SCH (13:14)
[2017-02-17] MEDS: LEVOFLOXACIN 750 MG TAB PO SCH (16:24)
[2017-02-17] MEDS: GLIMEPIRIDE 4 MG TAB PO SCH (16:24)
[2017-02-17] MEDS: ESCITALOPRAM OXALATE 10 MG TAB PO SCH (21:02)
[2017-02-18] VITALS (30 sets, daily range): BP systolic 129–165; BP diastolic 80–101; PULSE 62–139; RESP 16–20; TEMP 98.1–99.2; O2SAT 96–99
[2017-02-18] MEDS: guaiFENesin/DEXTROMETHORPHAN 200 MG/20 MG/10 ML CUP PO SCH ×2 (01:29→06:00)
[2017-02-18] MEDS ORDERED: DILTIAZEM HCL 25 MG/5 ML VIAL IV ONE (01:30)
[2017-02-18] MEDS: LEVALBUTEROL HYDROCHLORIDE NEB ×2 (03:41→07:55)
[2017-02-18] MEDS: LOW DOSE INSULIN NOVOLOG SUPPLEMENTAL SCALE SQ SCH ×4 (06:29→21:40)
[2017-02-18] MEDS: LEVOTHYROXINE SODIUM 125 MCG TAB PO SCH (06:29)
[2017-02-18] MEDS: GLIMEPIRIDE 4 MG TAB PO SCH ×2 (06:29→15:41)
[2017-02-18] MEDS: METOCLOPRAMIDE HCL 10 MG TAB PO SCH ×3 (07:35→15:41)
[2017-02-18] MEDS: DILTIAZEM-CD 180 MG CAP ER PO SCH ×2 (07:35→09:25)
[2017-02-18] MEDS: METOPROLOL TARTRATE 50 MG TAB PO SCH ×2 (07:46→21:38)
[2017-02-18] MEDS: TORSEMIDE 5 MG TAB PO SCH (10:03)
[2017-02-18] MEDS: APIXABAN 2.5 MG TABLET PO SCH ×2 (10:04→21:38)
[2017-02-18] MEDS: LISINOPRIL 20 MG TAB PO SCH (10:04)
[2017-02-18] MEDS: POTASSIUM CHLORIDE 10 MEQ CONTROLLED RELEASE TAB PO SCH (10:04)
[2017-02-18] MEDS: CHLORPHENIR/HYDROCOD LIQUID 8 MG/10 MG/5 ML CUP PO SCH ×3 (10:04→21:39)
[2017-02-18] MEDS: BUDESONIDE-FORMOTEROL 160/4.5 MCG INHALER INH SCH ×2 (10:04→21:36)
[2017-02-18] MEDS: ARFORMOTEROL NEB SCH ×2 (10:07→20:00)
--- NOTE | 2017-02-18 10:14 | HHI.PR ---
Subjective Remarks a fib- went into rapid rhythm again this am HR 130s, BP 160/110 patient very anxious, she appears confused when went over- patient was off 02 overnight per staff nurse cough better Objective Vitals Vital Signs Date Time Temp Pulse Resp B/P Pulse Ox O2 Delivery O2 Flow Rate FiO2 02/18/17 07:55 98 Nasal Cannula 1.00 02/18/17 06:00 110 02/18/17 05:00 110 02/18/17 04:00 104 02/18/17 03:42 98 Nasal Cannula 2.00 02/18/17 03:35 98.9 92 20 140/87 98 02/18/17 03:00 123 02/18/17 02:00 114 02/18/17 01:33 129/80 02/18/17 01:00 135 20 165/101 99 02/18/17 01:00 122 02/18/17 00:00 106 02/17/17 23:00 98.4 98 20 153/95 99 02/17/17 23:00 107 02/17/17 22:00 116 02/17/17 21:00 110 02/17/17 20:22 98.5 94 16 143/89 99 02/17/17 20:00 110 02/17/17 19:00 101 02/17/17 19:00 99 Nasal Cannula 3.00 02/17/17 18:14 102 02/17/17 17:01 108 02/17/17 16:00 56 02/17/17 16:00 98.4 85 18 140/99 98 02/17/17 15:06 98 Nasal Cannula 2.00 02/17/17 14:01 82 02/17/17 13:00 88 02/17/17 12:00 98.2 93 18 139/86 98 02/17/17 12:00 84 02/17/17 11:00 109 I/O 02/17/17 02/17/17 02/17/17 02/18/17 02/18/17 02/18/17 06:59 14:59 22:59 06:59 14:59 22:59 Intake Total 700 ml 720 ml 480 ml Output Total 700 ml 300 ml Balance 700 ml 20 ml 180 ml Intake Oral 700 ml 720 ml 480 ml IV Total 0 ml Output Urine Total 700 ml 300 ml # Voids 2 # Bowel Movements 0 0 0 Result Diagram: 02/15/17 0728 02/16/17 0551 Imaging Last Impressions Chest X-Ray 02/15/17716 Signed Impressions: Service Date/Time: Wednesday, February 15, 2017 07:28 - CONCLUSION: Slight probable scarring at the left base. Ismael Bee MD Objective Remarks awake and alert,anxious, oriented to person and palce- but appears confused anicteric lungs- no rhnchi, no wheezes irregularly irregular rhythm- abdomen soft, good bowel sounds extremities no edema A/P Assessment and Plan 82-year-old female presenting with fever chills cough at bedside productive of thick yellowish sputum Atrial fibrillation in RVR with history of chronic A. fib . in RVR History of CAD status post stent HYpertension- uncontrolled increased Cardizem 360 mg po daily continue on Lopressor 50 mg po bid consult her Workforce Consultant- Dr. Day continue on МАРИЯ- increase to 5 mg daily Eliquis bid on KCL 10 meq po daily Pneumonia community-acquired COPD exacerbation- 02 dependent on nebulization- not being administered and inhalers- Xopenex increase dose to 0.63 q 6- medically necessary- d/w pharmacy on IV Zithromax. Levaquin po DC robitussin DM and Tussionex bid- hold with some confusion change to Mucinex bid DC steroids- with acute delirium/psychosis Consult Pulmonary Check ABG Acute Delerium - ? steroid psychosis, DC Tussinex., DM. put back on NC if persists check CT Acute kidney injury- creatinine increased from baseline- creatinine down restart Torsemide at 5 mg daily BMP today History of diabetes type 2 A1C- 6.2- elevated readings due to steroids glimepiride twice a day elevated BS due to steroids continue to monitor of SS History of hypothyroidism continue on Synthroid History of liver cirrhosis- no encephalopathy History of thrombocytopenia this is chronic likely from liver cirrhosis Increase activity and monitor HR- per patient ambulates with a walker. PT consult 11 am- ADD: recheck patient Acute Delirium- resolved 02 sat 98 % at 2LNC rate better controlled- 70s MS back to baseline- awake and alert oriented x 3. seen with daughter at bedside BP 137/70 Georgette Macias MD Feb 18, 2017 10:14
[2017-02-18] MEDS: guaiFENesin E.R. 600 MG TAB PO SCH ×2 (11:53→21:38)
[2017-02-18 12:21] LABS: ALKALINE PHOSPHATASE 50 U/L (45-117); ALT (GPT) 26 U/L (10-53); ANION GAP 8 MEQ/L (5-15); AST (GOT) 23 U/L (15-37); BICARBONATE 29.1 MEQ/L (21.0-32.0); BLOOD UREA NITROGEN 52 MG/DL (7-18); CHLORIDE 101 MEQ/L (98-107); GLOMERULAR FILTRATION RATE 28 ML/MIN (>89); MAGNESIUM 2.2 MG/DL (1.5-2.5); POTASSIUM 4.1 MEQ/L (3.5-5.1); SODIUM (NA) 138 MEQ/L (136-145); TOTAL BILIRUBIN ADULT 0.6 MG/DL (0.2-1.0)
--- NOTE | 2017-02-18 14:27 | PD.CONS ---
HPI Service Cardiology Physicians Consult Requested By Dr. Macias Reason for Consult afib RVR Primary Care Physician Rolo Minaya M.D. History of Present Illness The patient is an 82 year old female known to our practice with a medical history of chronic atrial fibrillation on Eliquis, SSS s/p PPM, diastolic CHF, history of ASHD with abnormal nuclear stress test 02/2016 and declined cardiac cath, DM and HTN. Ohter notable history liver disease, thrombocytopenia, CKD and hypothyroidism. The patient was last evaluated by us in October 2016 for afib RVR in the hospital. She did not followup after discharge. Her last device check was 07/2016. She had 75% battery capacity at that time. Device is set to pace at 50 bpm. The patient is in the hospital for pneumonia. We were consulted on this admission for recurrent atrial fibrillation with RVR and evidence of CHF exacerbation. Her rate is better controlled on increased dose of Cardizem. The patient's Chinese is limited, obtain most information from the daughter. The patient admits to SOB, coughing and rapid heart rate/palpitations. (Rosamaria Lowry) Review of Systems ROS Limitations: Language Barrier, Poor Historian Respiratory: COMPLAINS OF: Cough, Shortness of breath Cardiovascular: COMPLAINS OF: Palpitations, Tachycardia (Rosamaria Lowry) Past Family Social History Allergies: Coded Allergies: Penicillin (Verified Allergy, Severe, Anaphylaxis, 02/15/17) Past Medical History See HPI Past Surgical History Biotronik PPM 2012 Stent 2008 Cholecystectomy 1970 Hysterectomy 1970 Reported Medications Reported Meds & Active Scripts Active Ambien (Zolpidem Tartrate) 5 Mg Tab 5 Mg PO HS PRN Reglan (Metoclopramide HCl) 5 Mg Tab 5 Mg PO TIDAC 30 Days Lopressor (Metoprolol Tartrate) 50 Mg Tab 50 Mg PO BID Cardizem CD 24 HR (Diltiazem CD 24 HR) 240 Mg Caper 240 Mg PO DAILY Reported Eliquis (Apixaban) 2.5 Mg Tab 2.5 Mg PO BID Glimepiride 4 Mg Tab 4 Mg PO BIDAC Zantac (Ranitidine HCl) 150 Mg Tab 150 Mg PO DAILY Brovana Neb (Arformoterol Neb) 15 Mcg/2 Ml Vial 1 Nebule NEB BID Maintenance treatment of bronchoconstriction in COPD. Levothyroxine (Levothyroxine Sodium) 125 Mcg Tab 125 Mcg PO DAILY Torsemide 20 Mg Tab 20 Mg PO DAILY Potassium Chloride ER (Potassium Chloride) 10 Meq Tab 10 Meq PO DAILY Xopenex Neb (Levalbuterol HCl) 0.31 Mg/3 Ml Neb 0.31 Mg NEB QID Symbicort Inh (Budesonide/Formoterol Fumarate) 160-4.5 Mcg/Act Aero 2 Puff INH BID Active Ordered Medications Current Medications Medications (Trade) Dose Ordered Sig/Marlon Route Start Time Stop Time Status Last Admin (Cardizem Inj/NS Inj) 125 ml @ 0 mls/hr TITRATE IV 02/15/17 07:30 02/15/17 17:20 (NS Flush) 2 ml UNSCH PRN IVF 02/15/17 07:30 02/15/17 21:24 (NS Flush) 2 ml UNSCH PRN IVF 02/15/17 07:30 (Eliquis) 2.5 mg BID PO 02/15/17 09:00 02/18/17 10:04 (Symbicort 160-4.5 Inh) 2 puff BID INH 02/15/17 09:00 02/18/17 10:04 (Lexapro) 5 mg HS PO 02/15/17 21:00 02/17/17 21:02 (Amaryl) 4 mg BIDAC PO 02/15/17 16:00 02/18/17 06:29 (Synthroid) 125 mcg DAILY@0600 PO 02/15/17 09:00 02/18/17 06:29 (Lopressor) 50 mg BID PO 02/15/17 09:00 02/18/17 07:46 (KCl) 10 meq DAILY PO 02/15/17 09:00 02/18/17 10:04 (Ambien) 5 mg HS PRN PO 02/15/17 09:00 02/15/17 21:19 (Reglan) 5 mg TIDAC PO 02/15/17 17:00 02/18/17 11:54 Miscellaneous 1 ea 1 ea UNSCH PRN OTHER 02/15/17 12:00 (Zithromax Inj/ NS 250 ml Inj) 250 ml @ 250 mls/hr Q24H IV 02/15/17 14:00 02/17/17 13:14 (Prinivil) 20 mg DAILY PO 02/16/17 09:00 02/18/17 10:04 (Levaquin) 750 mg Q48H PO 02/15/17 15:00 02/17/17 16:24 (Tussionex Liq) 5 ml Q12HR PO 02/16/17 09:00 02/17/17 21:02 (D50w (Vial) Inj) 25 ml UNSCH PRN IV PUSH 02/16/17 18:30 (Glucagon Inj) 1 mg UNSCH PRN OTHER 02/16/17 18:30 (Demadex) 5 mg DAILY PO 02/17/17 09:00 02/18/17 10:03 (Cardizem Cd) 360 mg DAILY PO 02/18/17 07:30 02/18/17 07:35 (Mucinex Er) 600 mg BID PO 02/18/17 11:00 02/18/17 11:53 Family History non contributory Social History non smoker (Rosamaria Lowry) Physical Exam Vital Signs Vital Signs Date Time Temp Pulse Resp B/P Pulse Ox O2 Delivery O2 Flow Rate FiO2 02/18/17 07:55 98 Nasal Cannula 1.00 02/18/17 06:00 110 02/18/17 05:00 110 02/18/17 04:00 104 02/18/17 03:42 98 Nasal Cannula 2.00 02/18/17 03:35 98.9 92 20 140/87 98 02/18/17 03:00 123 02/18/17 02:00 114 02/18/17 01:33 129/80 02/18/17 01:00 135 20 165/101 99 02/18/17 01:00 122 02/18/17 00:00 106 02/17/17 23:00 98.4 98 20 153/95 99 02/17/17 23:00 107 02/17/17 22:00 116 02/17/17 21:00 110 02/17/17 20:22 98.5 94 16 143/89 99 02/17/17 20:00 110 02/17/17 19:00 101 02/17/17 19:00 99 Nasal Cannula 3.00 02/17/17 18:14 102 02/17/17 17:01 108 02/17/17 16:00 56 02/17/17 16:00 98.4 85 18 140/99 98 02/17/17 15:06 98 Nasal Cannula 2.00 02/17/17 14:01 82 Physical Exam GENERAL: Elderly female sleeping in bed, easy to arouse SKIN: Warm and dry. HEAD: Atraumatic. Normocephalic. EYES: Pupils equal and round. No scleral icterus. No injection or drainage. ENT: No nasal bleeding or discharge. Mucous membranes pink and moist. NECK: Trachea midline. CARDIOVASCULAR: Irreg irreg, no clicks or rubs, left chest PPM RESPIRATORY: Course rhonchi, scattered wheezing, nasal cannula GASTROINTESTINAL: Abdomen soft, non-tender, nondistended. MUSCULOSKELETAL: Extremities without clubbing, cyanosis. Pretibial edema bilateral NEUROLOGICAL: Awake and alert. No obvious cranial nerve deficits. Normal speech. PSYCHIATRIC: confused Laboratory Laboratory Tests Test 02/18/17 10:35 Sodium Level 138 Potassium Level 4.1 Chloride Level 101 Carbon Dioxide Level 29.1 Anion Gap 8 Blood Urea Nitrogen 52 Creatinine 1.73 Estimat Glomerular Filtration 28 Rate Random Glucose 213 Calcium Level 9.2 Magnesium Level 2.2 Total Bilirubin 0.6 Aspartate Amino Transf 23 (AST/SGOT) Alanine Aminotransferase 26 (ALT/SGPT) Alkaline Phosphatase 50 Total Protein 8.5 Albumin 3.1 Date/Time Procedure Status Source Growth 02/15/17 12:42 Gram Stain - Final Complete Sputum Expectorated Sputum 02/15/17 12:42 Sputum Culture - Final Complete Sputum Expectorated Sputum HEAVY GROWTH NORMAL RESPIRATORY FATOUMATA 02/15/17 08:15 Aerobic Blood Culture - Preliminary Resulted Blood Peripheral NO GROWTH IN 3 DAYS 02/15/17 08:15 Anaerobic Blood Culture - Preliminary Resulted Blood Peripheral NO GROWTH IN 3 DAYS (Rosamaria Lowry) Result Diagram: 02/15/17 0728 02/18/17 1035 Assessment and Plan Assessment and Plan Assessment: Chronic atrial fibrillation with RVR exacerbated by pulmonary illness. On Eliquis 2.5 bid (dosed appropriately due to age, weight and CKD) Community acquired pneumonia ASHD- recent hx of abnormal cardiac stress test. patient and family elected medical management SSS- s/p Biotronik PPM Acute on chronic diastolic CHF exacerbation HTN HTN Chronic thrombocytopenia plts 103 Plan: Agree with increased dose of Cardizem and continue metoprolol. Do not hold medication for HR. She has a PPM set to pace at 50 bpm. She did not tolerate verapamil in the past due to severe GI side effects. We will follow up the patient in the office at previously scheduled appointment on March 04, 2017. Will complete device interrogation at that time and make modifications, if necessary. Patient seen and evaluated by Dr. Day. (Rosamaria Lowry) Assessment and Plan The exam, history, and the medical decision-making described in the above note were completed with the assistance of the mid-level provider. I reviewed and agree with the findings presented. I attest that I had a [id number] encounter with the patient on the same day, and personally performed and documented my assessment and findings in the medical record Has stable chronic afib discusssed with pt continue medical management. (Chuck Day MD) Rosamaria Lowry Feb 18, 2017 14:27 Chuck Day MD Feb 18, 2017 15:00
[2017-02-18] MEDS: AZITHROMYCIN INJ 500 MG in SODIUM CHLOR 0.9% 250 ML INJ 250 ML IV SCH (15:40)
[2017-02-18] MEDS: RESP: LEVALBUTEROL HYDROCHLORIDE 0.63 MG/3 ML NEB (SCH) NEB ×2 (18:01→22:38)
--- NOTE | 2017-02-18 19:00 | MB ---
cc: TESS HOSKINS DATE OF CONSULTATION 02/18/[address] Macias. REASON FOR CONSULTATION Chronic obstructive pulmonary disease exacerbation. HISTORY OF PRESENT ILLNESS Ms. Ortiz is an 82-year-old white female with history of coronary artery disease and reactive airway disease. She uses oxygen at home. She has a history of liver cirrhosis and hepatitis C. She came to the hospital with worsening of her shortness of breath. She has wheezing. She also had fever up to 102 degrees, did not have any chest pain. No nausea or vomiting. With these symptoms, she came to the hospital. She had a workup done. Her CBC showed WBC count 8.3, hemoglobin 10.9, hematocrit 32.9, MCV 81, platelet count 106. Her INR is 1.3, sodium 138, potassium 4.1, chloride 101, CO2 29. BUN 52, creatinine 1.73. Her chest x-ray shows slight scarring at the left base, no infiltrates. PAST MEDICAL HISTORY 1. History of reactive airway disease, 2. History of cardiac stent placement 3. History of pacemaker placement 4. Cirrhosis of the liver secondary to hepatitis C 5. History of atrial fibrillation. MEDICATIONS Currently 1. Xopenex 0.63 mg 2. Mucinex 6 mg twice a day 3. Diltiazem 360 mg a day. 4. Furosemide 0.5 mg a day. 5. Lisinopril 20 mg a day. 6. Tussionex liquid 7. Lexapro 5 mg a day. 8. Glimepiride 4 mg a day 9. Levaquin 750 mg every 48 hours 10. Zithromax 500 mg a day 11. Eliquis 2.5 mg twice a day, 12. Symbicort 160/4.5 2 puffs twice a day, 13. Metoprolol 50 mg daily 14. Ambien 5 mg a day. ALLERGIES PENICILLIN SOCIAL HISTORY No history of smoking or alcohol abuse. FAMILY HISTORY She has three daughters, one daughter has bronchial asthma. REVIEW OF SYSTEMS Normally she is up, around and active, lives with her daughter. No headache or dizziness. No malignancy. PHYSICAL EXAMINATION GENERAL: Elderly female mildly short of breath. VITAL SIGNS: Blood pressure 130/80, heart 73, respirations 16, temperature 98 HEENT: Pupils are equal and reactive to light. Oral mucosa, nasal mucosa normal. NECK: Supple. JVP not raised. CHEST: He has expiratory rhonchi. CARDIOVASCULAR: S1, S2 normal. ABDOMEN: Soft, nondistended. Bowel sounds are present EXTREMITIES: No edema. EDGER MACHINE HELPER: Alert and oriented times three, no focal deficit. IMPRESSION 1. COPD with mild exacerbation 2. Bronchitis. 3. Atrial fibrillation with rapid ventricular rate. PLAN We will give her aerosol treatment. She is taking Xopenex. Continue with antibiotic. Monitor her renal function. Wean her oxygen. Continue with inhaled steroids. Once she gets better, she will need a pulmonary function study. I discussed with the patient and her daughter. I will follow up in my office. Further treatment will depend on the course in the hospital. Thank you Dr. Macias for this consultation. MD KALEB Fernandes/ /4:11 PM /6:39 PM
[2017-02-18] MEDS: ESCITALOPRAM OXALATE 10 MG TAB PO SCH (21:37)
[2017-02-19] VITALS (27 sets, daily range): BP systolic 143–154; BP diastolic 85–95; PULSE 58–112; RESP 18; TEMP 97.2–98.5; O2SAT 94–99
[2017-02-19] MEDS: RESP: LEVALBUTEROL HYDROCHLORIDE 0.63 MG/3 ML NEB (SCH) NEB ×4 (02:42→19:48)
[2017-02-19] MEDS: LOW DOSE INSULIN NOVOLOG SUPPLEMENTAL SCALE SQ SCH ×4 (06:17→21:20)
[2017-02-19] MEDS: LEVOTHYROXINE SODIUM 125 MCG TAB PO SCH (06:22)
[2017-02-19] MEDS: GLIMEPIRIDE 4 MG TAB PO SCH ×2 (06:22→15:45)
[2017-02-19 07:00] LABS: BICARBONATE 28.9 MEQ/L (21.0-32.0)
[2017-02-19 07:12] LABS: POTASSIUM 4.1 MEQ/L (3.5-5.1)
[2017-02-19] MEDS: ARFORMOTEROL NEB SCH ×2 (08:00→20:00)
--- NOTE | 2017-02-19 08:21 | HHI.PR ---
Subjective Remarks resting comfortably with no distress. has occasional cough. no fever and denies pain. d/w the RN and no acute issues over night. Objective Vitals Vital Signs Date Time Temp Pulse Resp B/P Pulse Ox O2 Delivery O2 Flow Rate FiO2 02/19/17 06:00 90 02/19/17 05:00 80 02/19/17 04:51 81 18 147/88 99 02/19/17 04:51 99 Nasal Cannula 2.00 02/19/17 04:00 80 02/19/17 03:00 92 02/19/17 02:00 78 02/19/17 01:00 76 02/19/17 00:00 74 02/18/17 23:00 98.1 75 18 141/84 98 02/18/17 23:00 98 Nasal Cannula 2.00 02/18/17 23:00 70 02/18/17 22:39 98 Nasal Cannula 1.00 02/18/17 22:00 70 02/18/17 21:00 78 02/18/17 20:15 99.2 88 20 138/83 97 02/18/17 20:15 97 Nasal Cannula 2.00 02/18/17 20:00 78 02/18/17 19:00 78 02/18/17 18:06 79 02/18/17 17:00 84 02/18/17 16:00 88 02/18/17 16:00 98.1 94 16 153/96 98 02/18/17 15:00 98 02/18/17 14:39 85 02/18/17 13:00 72 02/18/17 12:00 96 Nasal Cannula 2.00 02/18/17 12:00 72 02/18/17 12:00 98.1 73 16 134/80 96 02/18/17 11:00 62 02/18/17 10:00 122 02/18/17 09:00 132 I/O 02/18/17 02/18/17 02/18/17 02/19/17 02/19/17 02/19/17 07:00 15:00 23:00 07:00 15:00 23:00 Intake Total 480 ml 420 ml 120 ml Output Total 300 ml 400 ml Balance 180 ml 420 ml -280 ml Intake Oral 480 ml 420 ml 120 ml Output Urine Total 300 ml 400 ml # Voids 3 # Bowel Movements 0 1 0 Result Diagram: 02/15/17 0728 02/19/17 0536 Imaging Last Impressions Chest X-Ray 02/15/1717 Signed Impressions: Service Date/Time: Wednesday, February 15, 2017 07:28 - CONCLUSION: Slight probable scarring at the left base. Ismael Bee MD Objective Remarks GENERAL: This is a well-nourished, well-developed patient, in no apparent distress. CARDIOVASCULAR: Regular rate and regular rhythm without murmurs, gallops, or rubs. RESPIRATORY: Clear to auscultation. Breath sounds equal bilaterally. No wheezes , rales, or rhonchi. GASTROINTESTINAL: Abdomen soft, non-tender, nondistended. Normal, active bowel sounds MUSCULOSKELETAL: Extremities without clubbing, cyanosis, or edema. NEURO: Alert & Oriented x4 to person, place, time, situation. Moves all ext x4 Procedures none Medications and IVs Current Medications Diltiazem HCl/ Sodium Chloride (Cardizem Inj/NS Inj) 125 ml @ 0 mls/hr TITRATE IV Last administered on 02/15/17 17:20; Start 02/15/17 at 07:30 Diltiazem HCl (Cardizem Inj) 13 mg BOLUS ONCE IV PUSH Last administered on 07:34; Start 02/15/17 at 07:30; Stop 02/15/17 at 07:31; Status DC IV Flush (NS Flush) 2 ml UNSCH PRN IVF FLUSH AFTER USING IV ACCESS Last administered on 02/15/17 21:24; Start 02/15/17 at 07:30 IV Flush (NS Flush) 2 ml UNSCH PRN IVF FLUSH AFTER USING IV ACCESS; Start 02/15 at 07:30 Diltiazem HCl (Cardizem Inj) 18 mg BOLUS ONCE IV PUSH Last administered on 07:47; Start 02/15/17 at 07:45; Stop 02/15/17 at 07:46; Status DC Apixaban (Eliquis) 2.5 mg BID PO Last administered on 02/18/17 21:38; Start at 09:00 Budesonide/ Formoterol Fumarate (Symbicort 160-4.5 Inh) 2 puff BID INH Last administered on 02/18/17 21:36; Start 02/15/17 at 09:00 Escitalopram Oxalate (Lexapro) 5 mg HS PO Last administered on 02/18/17 21:37 ; Start 02/15/17 at 21:00 Glimepiride (Amaryl) 4 mg BIDAC PO Last administered on 02/19/17 06:22; Start 02/15/17 at 16:00 Levothyroxine Sodium (Synthroid) 125 mcg DAILY@0600 PO Last administered on 06:22; Start 02/15/17 at 09:00 Metoprolol Tartrate (Lopressor) 50 mg BID PO Last administered on 02/18/17 21: 38; Start 02/15/17 at 09:00 Potassium Chloride (KCl) 10 meq DAILY PO Last administered on 02/18/17 10:04; Start 02/15/17 at 09:00 Zolpidem Tartrate (Ambien) 5 mg HS PRN PO INSOMNIA Last administered on 21:19; Start 02/15/17 at 09:00 Patient Own Medication PT OWN MED: (Arformoterol ... BID NEB Last administered on 02/15/17 23:44; Start 02/15/17 at 21:00; Stop 02/16/17 at 12:35; Status DC Patient Own Medication PT OWN MED: (Levalbuterol ... QID NEB ; Start 02/15/17 at 18:00; Stop 02/16/17 at 12:36; Status DC Metoclopramide HCl (Reglan) 5 mg TIDAC PO Last administered on 02/18/17 15:41 ; Start 02/15/17 at 17:00 Miscellaneous 1 ea 1 ea UNSCH PRN OTHER SEE LABEL COMMENTS; Start 02/15/17 at 12:00 Azithromycin/ Sodium Chloride (Zithromax Inj/ NS 250 ml Inj) 250 ml @ 250 mls/ hr Q24H IV Last administered on 02/18/17 15:40; Start 02/15/17 at 14:00 Lisinopril (Prinivil) 20 mg DAILY PO Last administered on 02/18/17 10:04; Start 02/16/17 at 09:00 Guaifenesin/ Dextromethorphan (Robitussin Dm 200-20 Mg/10 ml Liq) 10 ml Q4H PO Last administered on 02/17/17 18:27; Start 02/15/17 at 14:00; Stop 02/18/17 at 09:59; Status DC Levofloxacin (Levaquin) 750 mg Q48H PO Last administered on 02/17/17 16:24; Start 02/15/17 at 15:00 Diltiazem HCl (Cardizem) 60 mg Q6HR PO Last administered on 02/17/17 05:43; Start 02/16/17 at 08:30; Stop 02/17/17 at 07:40; Status DC Methylprednisolone Sodium Succinate (SoluMEDROL INJ) 40 mg Q8HR IV PUSH Last administered on 02/17/17 05:42; Start 02/16/17 at 08:30; Stop 02/17/17 at 08:03 ; Status DC Potassium Chloride (KCl) 10 meq ONCE ONCE PO Last administered on 02/16/17 09 :41; Start 02/16/17 at 08:45; Stop 02/16/17 at 08:46; Status DC Chlorphenir/ Hydrocodone Polistirex (Tussionex Liq) 5 ml Q12HR PO Last administered on 02/18/17 21:39; Start 02/16/17 at 09:00 Patient Own Medication PT OWN MED: (Arformoterol ... Q12HR NEB NEB ; Start at 20:00 Patient Own Medication PT OWN MED: (Levalbuterol ... Q6HR NEB NEB ; Start 02/16 at 16:00; Stop 02/17/17 at 08:27; Status DC Dextrose (D50w (Vial) Inj) 25 ml UNSCH PRN IV PUSH HYPOGLYCEMIA - SEE COMMENTS ; Start 02/16/17 at 18:30 Glucagon (Glucagon Inj) 1 mg UNSCH PRN OTHER HYPOGLYCEMIA-SEE COMMENTS; Start 02/16/17 at 18:30 Insulin Aspart (NovoLOG SUPPLEMENTAL SCALE) 1 ACHS SLIDING SCALE SQ Last administered on 02/18/17 21:40; Start 02/16/17 at 18:26 Diltiazem HCl (Cardizem Cd) 240 mg DAILY PO Last administered on 02/17/17 09: 31; Start 02/17/17 at 09:00; Stop 02/18/17 at 07:26; Status DC Torsemide (Demadex) 5 mg DAILY PO Last administered on 02/18/17 10:03; Start 02/17/17 at 09:00 Levalbuterol HCl (Xopenex Neb) 0.31 mg Q4HR NEB NEB Last administered on 15:06; Start 02/17/17 at 12:00; Stop 02/17/17 at 16:01; Status DC Levalbuterol HCl (Xopenex Neb) 0.31 mg NOW ONCE NEB Last administered on 08:55; Start 02/17/17 at 08:30; Stop 02/17/17 at 08:31; Status DC Levalbuterol HCl (Xopenex Neb) 0.31 mg Q6HR NEB NEB Last administered on 07:55; Start 02/17/17 at 22:00; Stop 02/18/17 at 10:36; Status DC Diltiazem HCl (Cardizem Inj) 10 mg ONCE ONCE IV Last administered on 01:29; Start 02/18/17 at 01:30; Stop 02/18/17 at 01:31; Status DC Diltiazem HCl (Cardizem Cd) 360 mg DAILY PO Last administered on 02/18/17 07: 35; Start 02/18/17 at 07:30 Guaifenesin (Mucinex Er) 600 mg BID PO Last administered on 02/18/17 21:38; Start 02/18/17 at 11:00 Levalbuterol HCl (Xopenex Neb) 0.63 mg Q6HR NEB NEB Last administered on 02:42; Start 02/18/17 at 16:00 A/P Assessment and Plan A/P Atrial fibrillation in RVR with history of chronic A. fib . in RVR- now HR is controlled. History of CAD status post stent Hypertension- continue Cardizem 360 mg po daily continue on Lopressor 50 mg po bid consult her [employer] Tender- Dr. aDy continue on МАРИЯ- Eliquis bid Pneumonia community-acquired COPD exacerbation- 02 dependent on nebulization- not being administered and inhalers- Xopenex increased dose to 0.63 q 6- medically necessary- d/w pharmacy on IV Zithromax. Levaquin po DC'ed robitussin DM and Tussionex bid- hold with some confusion changed to Mucinex bid DC'ed steroids- with acute delirium/psychosis Pulmonary consult appreciated. Acute Delerium - ? steroid psychosis, DC'ed Tussinex., DM. - now improved. Acute kidney injury- creatinine increased from baseline- creatinine down restart Torsemide at 5 mg daily BMP today History of diabetes type 2 A1C- 6.2- elevated readings due to steroids glimepiride twice a day elevated BS due to steroids continue to monitor of SS History of hypothyroidism continue on Synthroid History of liver cirrhosis- no encephalopathy History of thrombocytopenia this is chronic likely from liver cirrhosis Increase activity and monitor HR- per patient ambulates with a walker. PT consulted Discharge Planning dc home tomorrow if stable- pending PT evaluation. d/w the daughter. Colt Magaña MD Feb 19, 2017 08:21
[2017-02-19] MEDS: METOPROLOL TARTRATE 50 MG TAB PO SCH ×2 (08:39→21:17)
[2017-02-19] MEDS: LISINOPRIL 20 MG TAB PO SCH (08:39)
[2017-02-19] MEDS: CHLORPHENIR/HYDROCOD LIQUID 8 MG/10 MG/5 ML CUP PO SCH ×2 (08:39→21:19)
[2017-02-19] MEDS: TORSEMIDE 5 MG TAB PO SCH (08:39)
[2017-02-19] MEDS: POTASSIUM CHLORIDE 10 MEQ CONTROLLED RELEASE TAB PO SCH (08:39)
[2017-02-19] MEDS: APIXABAN 2.5 MG TABLET PO SCH ×2 (08:40→21:18)
[2017-02-19] MEDS: METOCLOPRAMIDE HCL 10 MG TAB PO SCH ×3 (08:40→17:24)
[2017-02-19] MEDS: guaiFENesin E.R. 600 MG TAB PO SCH ×2 (08:40→21:18)
[2017-02-19] MEDS: BUDESONIDE-FORMOTEROL 160/4.5 MCG INHALER INH SCH ×2 (08:40→21:22)
[2017-02-19] MEDS: DILTIAZEM-CD 180 MG CAP ER PO SCH (08:40)
[2017-02-19] MEDS ORDERED: TORS5TAB2 PO (12:50)
[2017-02-19] MEDS ORDERED: LEVA750T PO (12:50)
[2017-02-19] MEDS ORDERED: CARD180C5 PO (12:50)
[2017-02-19] MEDS ORDERED: LISI-515 PO (12:50)
[2017-02-19] MEDS: AZITHROMYCIN INJ 500 MG in SODIUM CHLOR 0.9% 250 ML INJ 250 ML IV SCH (14:22)
[2017-02-19] MEDS: LEVOFLOXACIN 750 MG TAB PO SCH (15:44)
[2017-02-19] MEDS: ESCITALOPRAM OXALATE 10 MG TAB PO SCH (21:18)
[2017-02-19] MEDS: SODIUM CHLORIDE 0.9% FLUSH 5 ML FLUSH IVF PRN (21:20)
[2017-02-20] VITALS (17 sets, daily range): BP systolic 150–178; BP diastolic 91–93; PULSE 63–110; RESP 16; TEMP 98.3–98.5; O2SAT 94–97
[2017-02-20] MEDS: RESP: LEVALBUTEROL HYDROCHLORIDE 0.63 MG/3 ML NEB (SCH) NEB ×2 (03:30→09:32)
[2017-02-20] MEDS: LOW DOSE INSULIN NOVOLOG SUPPLEMENTAL SCALE SQ SCH ×2 (05:50→10:56)
[2017-02-20] MEDS: LEVOTHYROXINE SODIUM 125 MCG TAB PO SCH (05:51)
[2017-02-20] MEDS: GLIMEPIRIDE 4 MG TAB PO SCH (05:51)
[2017-02-20] MEDS: ARFORMOTEROL NEB SCH (08:00)
[2017-02-20] MEDS: LISINOPRIL 20 MG TAB PO SCH (08:02)
[2017-02-20] MEDS: guaiFENesin E.R. 600 MG TAB PO SCH (08:02)
[2017-02-20] MEDS: DILTIAZEM-CD 180 MG CAP ER PO SCH (08:02)
[2017-02-20] MEDS: APIXABAN 2.5 MG TABLET PO SCH (08:02)
[2017-02-20] MEDS: TORSEMIDE 5 MG TAB PO SCH (08:02)
[2017-02-20] MEDS: CHLORPHENIR/HYDROCOD LIQUID 8 MG/10 MG/5 ML CUP PO SCH (08:02)
[2017-02-20] MEDS: METOCLOPRAMIDE HCL 10 MG TAB PO SCH ×2 (08:03→11:03)
[2017-02-20] MEDS: METOPROLOL TARTRATE 50 MG TAB PO SCH (08:03)
[2017-02-20] MEDS: POTASSIUM CHLORIDE 10 MEQ CONTROLLED RELEASE TAB PO SCH (08:03)
[2017-02-20] MEDS: BUDESONIDE-FORMOTEROL 160/4.5 MCG INHALER INH SCH (08:06)
--- NOTE | 2017-02-20 09:22 | HHI.PR ---
Subjective Remarks resting comfortably with no distress. no sob or fever. wants to go home. Objective Vitals Vital Signs Date Time Temp Pulse Resp B/P Pulse Ox O2 Delivery O2 Flow Rate FiO2 02/20/17 08:00 100 02/20/17 07:00 98.3 94 16 178/93 94 02/20/17 07:00 94 Nasal Cannula 2.00 02/20/17 07:00 87 02/20/17 06:00 90 02/20/17 05:00 76 02/20/17 04:15 99 16 150/91 96 02/20/17 04:15 96 Nasal Cannula 2.00 02/20/17 04:00 110 02/20/17 03:00 76 02/20/17 02:00 70 02/20/17 01:00 70 02/20/17 00:01 97 Nasal Cannula 2.00 02/20/17 00:01 71 16 157/92 97 02/20/17 00:00 70 02/19/17 23:00 70 02/19/17 22:00 72 02/19/17 21:00 78 02/19/17 20:00 86 02/19/17 19:48 97 Nasal Cannula 1.00 02/19/17 19:00 98 Nasal Cannula 2.00 02/19/17 19:00 85 02/19/17 19:00 98.2 82 18 154/92 98 02/19/17 18:11 96 02/19/17 17:00 74 02/19/17 16:00 75 02/19/17 15:00 98.2 67 18 143/85 95 02/19/17 15:00 95 Nasal Cannula 2.00 02/19/17 15:00 63 02/19/17 14:00 58 02/19/17 13:00 65 02/19/17 12:00 69 02/19/17 11:00 98 Nasal Cannula 2.00 02/19/17 11:00 97.2 108 18 145/95 97 02/19/17 11:00 85 02/19/17 10:00 88 I/O 02/19/17 02/19/17 02/19/17 02/20/17 02/20/17 02/20/17 07:00 15:00 23:00 07:00 15:00 23:00 Intake Total 120 ml 1200 ml 300 ml Output Total 400 ml 1200 ml 600 ml Balance -280 ml 0 ml -300 ml Intake Oral 120 ml 1200 ml 300 ml Output Urine Total 400 ml 1200 ml 600 ml # Bowel Movements 0 0 0 Result Diagram: 02/19/17 0536 Imaging Last Impressions Chest X-Ray 02/15/1717 Signed Impressions: Service Date/Time: Wednesday, February 15, 2017 07:28 - CONCLUSION: Slight probable scarring at the left base. Ismael Bee MD Objective Remarks GENERAL: This is a well-nourished, well-developed patient, in no apparent distress. CARDIOVASCULAR: Regular rate and regular rhythm without murmurs, gallops, or rubs. RESPIRATORY: Clear to auscultation. Breath sounds equal bilaterally. No wheezes , rales, or rhonchi. GASTROINTESTINAL: Abdomen soft, non-tender, nondistended. Normal, active bowel sounds MUSCULOSKELETAL: Extremities without clubbing, cyanosis, or edema. NEURO: Alert & Oriented x4 to person, place, time, situation. Moves all ext x4 Procedures none Medications and IVs Current Medications Diltiazem HCl/ Sodium Chloride (Cardizem Inj/NS Inj) 125 ml @ 0 mls/hr TITRATE IV Last administered on 02/15/17 17:20; Start 02/15/17 at 07:30 Diltiazem HCl (Cardizem Inj) 13 mg BOLUS ONCE IV PUSH Last administered on 07:34; Start 02/15/17 at 07:30; Stop 02/15/17 at 07:31; Status DC IV Flush (NS Flush) 2 ml UNSCH PRN IVF FLUSH AFTER USING IV ACCESS Last administered on 02/19/17 21:20; Start 02/15/17 at 07:30 IV Flush (NS Flush) 2 ml UNSCH PRN IVF FLUSH AFTER USING IV ACCESS; Start 02/15 at 07:30 Diltiazem HCl (Cardizem Inj) 18 mg BOLUS ONCE IV PUSH Last administered on 07:47; Start 02/15/17 at 07:45; Stop 02/15/17 at 07:46; Status DC Apixaban (Eliquis) 2.5 mg BID PO Last administered on 02/20/17 08:02; Start at 09:00 Budesonide/ Formoterol Fumarate (Symbicort 160-4.5 Inh) 2 puff BID INH Last administered on 02/20/17 08:06; Start 02/15/17 at 09:00 Escitalopram Oxalate (Lexapro) 5 mg HS PO Last administered on 02/19/17 21:18 ; Start 02/15/17 at 21:00 Glimepiride (Amaryl) 4 mg BIDAC PO Last administered on 02/20/17 05:51; Start 02/15/17 at 16:00 Levothyroxine Sodium (Synthroid) 125 mcg DAILY@0600 PO Last administered on 05:51; Start 02/15/17 at 09:00 Metoprolol Tartrate (Lopressor) 50 mg BID PO Last administered on 02/20/17 08: 03; Start 02/15/17 at 09:00 Potassium Chloride (KCl) 10 meq DAILY PO Last administered on 02/20/17 08:03; Start 02/15/17 at 09:00 Zolpidem Tartrate (Ambien) 5 mg HS PRN PO INSOMNIA Last administered on 21:19; Start 02/15/17 at 09:00 Patient Own Medication PT OWN MED: (Arformoterol ... BID NEB Last administered on 02/15/17 23:44; Start 02/15/17 at 21:00; Stop 02/16/17 at 12:35; Status DC Patient Own Medication PT OWN MED: (Levalbuterol ... QID NEB ; Start 02/15/17 at 18:00; Stop 02/16/17 at 12:36; Status DC Metoclopramide HCl (Reglan) 5 mg TIDAC PO Last administered on 02/20/17 08:03 ; Start 02/15/17 at 17:00 Miscellaneous 1 ea 1 ea UNSCH PRN OTHER SEE LABEL COMMENTS; Start 02/15/17 at 12:00 Azithromycin/ Sodium Chloride (Zithromax Inj/ NS 250 ml Inj) 250 ml @ 250 mls/ hr Q24H IV Last administered on 02/19/17 14:22; Start 02/15/17 at 14:00 Lisinopril (Prinivil) 20 mg DAILY PO Last administered on 02/20/17 08:02; Start 02/16/17 at 09:00 Guaifenesin/ Dextromethorphan (Robitussin Dm 200-20 Mg/10 ml Liq) 10 ml Q4H PO Last administered on 02/17/17 18:27; Start 02/15/17 at 14:00; Stop 02/18/17 at 09:59; Status DC Levofloxacin (Levaquin) 750 mg Q48H PO Last administered on 02/19/17 15:44; Start 02/15/17 at 15:00 Diltiazem HCl (Cardizem) 60 mg Q6HR PO Last administered on 02/17/17 05:43; Start 02/16/17 at 08:30; Stop 02/17/17 at 07:40; Status DC Methylprednisolone Sodium Succinate (SoluMEDROL INJ) 40 mg Q8HR IV PUSH Last administered on 02/17/17 05:42; Start 02/16/17 at 08:30; Stop 02/17/17 at 08:03 ; Status DC Potassium Chloride (KCl) 10 meq ONCE ONCE PO Last administered on 02/16/17 09 :41; Start 02/16/17 at 08:45; Stop 02/16/17 at 08:46; Status DC Chlorphenir/ Hydrocodone Polistirex (Tussionex Liq) 5 ml Q12HR PO Last administered on 02/20/17 08:02; Start 02/16/17 at 09:00 Patient Own Medication PT OWN MED: (Arformoterol ... Q12HR NEB NEB ; Start at 20:00 Patient Own Medication PT OWN MED: (Levalbuterol ... Q6HR NEB NEB ; Start 02/16 at 16:00; Stop 02/17/17 at 08:27; Status DC Dextrose (D50w (Vial) Inj) 25 ml UNSCH PRN IV PUSH HYPOGLYCEMIA - SEE COMMENTS ; Start 02/16/17 at 18:30 Glucagon (Glucagon Inj) 1 mg UNSCH PRN OTHER HYPOGLYCEMIA-SEE COMMENTS; Start 02/16/17 at 18:30 Insulin Aspart (NovoLOG SUPPLEMENTAL SCALE) 1 ACHS SLIDING SCALE SQ Last administered on 02/19/17 21:20; Start 02/16/17 at 18:26 Diltiazem HCl (Cardizem Cd) 240 mg DAILY PO Last administered on 02/17/17 09: 31; Start 02/17/17 at 09:00; Stop 02/18/17 at 07:26; Status DC Torsemide (Demadex) 5 mg DAILY PO Last administered on 02/20/17 08:02; Start 02/17/17 at 09:00 Levalbuterol HCl (Xopenex Neb) 0.31 mg Q4HR NEB NEB Last administered on 15:06; Start 02/17/17 at 12:00; Stop 02/17/17 at 16:01; Status DC Levalbuterol HCl (Xopenex Neb) 0.31 mg NOW ONCE NEB Last administered on 08:55; Start 02/17/17 at 08:30; Stop 02/17/17 at 08:31; Status DC Levalbuterol HCl (Xopenex Neb) 0.31 mg Q6HR NEB NEB Last administered on 07:55; Start 02/17/17 at 22:00; Stop 02/18/17 at 10:36; Status DC Diltiazem HCl (Cardizem Inj) 10 mg ONCE ONCE IV Last administered on 01:29; Start 02/18/17 at 01:30; Stop 02/18/17 at 01:31; Status DC Diltiazem HCl (Cardizem Cd) 360 mg DAILY PO Last administered on 02/20/17 08: 02; Start 02/18/17 at 07:30 Guaifenesin (Mucinex Er) 600 mg BID PO Last administered on 02/20/17 08:02; Start 02/18/17 at 11:00 Levalbuterol HCl (Xopenex Neb) 0.63 mg Q6HR NEB NEB Last administered on 03:30; Start 02/18/17 at 16:00 A/P Assessment and Plan A/P Atrial fibrillation in RVR with history of chronic A. fib . in RVR- now HR is controlled. History of CAD status post stent Hypertension- continue Cardizem 360 mg po daily continue on Lopressor 50 mg po bid evaluated by cardiology- f/u as outpatient continue on МАРИЯ- Eliquis bid Pneumonia community-acquired COPD exacerbation- 02 dependent on nebulization- continue antibiotics DC'ed steroids- with acute delirium/psychosis Pulmonary consult appreciated- f/u as outpatient Acute Delerium - ? steroid psychosis, DC'ed Tussinex., DM. - now improved. Acute kidney injury- creatinine increased from baseline- creatinine down restarted Torsemide at 5 mg daily History of diabetes type 2 A1C- 6.2- elevated readings due to steroids glimepiride twice a day elevated BS due to steroids continue to monitor of SS History of hypothyroidism continue on Synthroid History of liver cirrhosis- no encephalopathy History of thrombocytopenia this is chronic likely from liver cirrhosis PT consulted Discharge Planning possible dc home later today if doing ok with PT. see med list. f/u; pcp, cardiology and pulmonary. d/w the patient and the RN. previously d/w the daughter. Colt Magaña MD Feb 20, 2017 09:22
--- NOTE | 2017-02-20 09:28 | HHI.DCPOC ---
Discharge Care Plan Diagnosis: (1) Atrial fibrillation with rapid ventricular response Your Health Problems Are: Shortness of Breath Goals to Promote Your Health * To prevent worsening of your condition and complications * To maintain your health at the optimal level Directions to Meet Your Goals Take your medications as prescribed Follow your dietary instruction Follow activity as directed Keep your appointments as scheduled Take your immunizations and boosters as scheduled If your symptoms worsen call your PCP, if no PCP go to Urgent Care Center or Emergency Room Smoking is Dangerous to Your Health. Avoid second hand smoke Call the 24-hour hour crisis hotline for domestic abuse at Colt Magaña MD Feb 20, 2017 09:28
--- NOTE | 2017-02-20 09:28 | HHI.DS ---
Discharge Summary Admission Date Feb 15, 2017 at 09:16 Discharge Date: Feb 20, 2017 Admitting Diagnosis afib with rvr, acute on chronic kidney injury, htn, diabetes, hyperl (1) Atrial fibrillation with rapid ventricular response ICD Code: I48.91 Diagnosis: Principal Procedures none Brief History - From Admission Patient is a very pleasant 82-year-old female with known history of CAD, hyperreactive airway disease O2 dependent at bedtime, history of liver cirrhosis secondary to hepatitis C, hypothyroidism who presented to the ER complaining of fever and chills. Patient is seen at bedside with daughter who interpreted for us as patient is [place]ian-speaking. As stated for the past 3 days has been coughing with chills 101-2102 degrees associated with cough productive of yellowish sputum. Due to severe cough patient was unable to sleep at night. Finally came to the emergency room where on evaluation was noted to be in rapid ventricular rate. Patient with history of chronic A. fib on beta julita and calcium channel julita. Per her blood sugars are well controlled from readings 80s to 130s. Good hypoglycemic awareness. Very independent occasionally uses a walker when on long walks. She uses oxygen only at bedtime. Patient admitted for further evaluation and management. CBC/BMP: 02/19/17 0536 Significant Findings Laboratory Tests Test 02/18/17 02/19/17 10:35 05:36 Blood Urea Nitrogen 52 MG/DL (7-18) 42 MG/DL (7-18) Creatinine 1.73 MG/DL 1.20 MG/DL (0.50-1.00) (0.50-1.00) Estimat Glomerular Filtration 28 ML/MIN (>89) 43 ML/MIN (>89) Rate Random Glucose 213 MG/DL 109 MG/DL (74-106) (74-106) Total Protein 8.5 GM/DL (6.4-8.2) Albumin 3.1 GM/DL (3.4-5.0) Imaging Last Impressions Chest X-Ray 02/15/17 0736 Signed Impressions: Service Date/Time: Wednesday, February 15, 2017 07:28 - CONCLUSION: Slight probable scarring at the left base. Ismael Bee MD PE at Discharge GENERAL: This is a well-nourished, well-developed patient, in no apparent distress. CARDIOVASCULAR: Regular rate and regular rhythm without murmurs, gallops, or rubs. RESPIRATORY: Clear to auscultation. Breath sounds equal bilaterally. No wheezes , rales, or rhonchi. GASTROINTESTINAL: Abdomen soft, non-tender, nondistended. Normal, active bowel sounds MUSCULOSKELETAL: Extremities without clubbing, cyanosis, or edema. NEURO: Alert & Oriented x4 to person, place, time, situation. Moves all ext x4 Hospital Course Atrial fibrillation in RVR with history of chronic A. fib . in RVR- now HR is controlled. History of CAD status post stent Hypertension- continue Cardizem 360 mg po daily continue on Lopressor 50 mg po bid evaluated by cardiology- f/u as outpatient continue on МАРИЯ- Eliquis bid Pneumonia community-acquired COPD exacerbation- 02 dependent on nebulization- continue antibiotics DC'ed steroids- with acute delirium/psychosis Pulmonary consult appreciated- f/u as outpatient Acute Delerium - ? steroid psychosis, DC'ed Tussinex., DM. - now improved. Acute kidney injury- creatinine increased from baseline- creatinine down restarted Torsemide at 5 mg daily History of diabetes type 2 A1C- 6.2- elevated readings due to steroids glimepiride twice a day elevated BS due to steroids continue to monitor of SS History of hypothyroidism continue on Synthroid History of liver cirrhosis- no encephalopathy History of thrombocytopenia this is chronic likely from liver cirrhosis PT consulted Pt Condition on Discharge: Good Discharge Disposition: Disch w/ Home Health Serv Discharge Time: <= 30 minutes Discharge Instructions DIET: Follow Instructions for: Heart Healthy Diet, Diabetic Diet Activities you can perform: Regular-No Restrictions Follow up Referrals: Cardiology PCP Follow-up Pulmonology New Medications: Diltiazem CD 24 HR (Cardizem CD 24 HR) 180 Mg Caper 360 MG PO DAILY a-fib Days 30 Ref 0 CAP Levofloxacin (Levaquin) 750 Mg Tab 750 MG PO Q48H pneumonia #3 Ref 0 TAB Lisinopril (Lisinopril) 20 Mg Tab 20 MG PO DAILY hypertension Days 30 Ref 0 TAB Torsemide (Torsemide) 5 Mg Tab 5 MG PO DAILY diuretic Days 30 Ref 0 TAB Continued Medications: Apixaban (Eliquis) 2.5 Mg Tab 2.5 MG PO BID Blood Clot Prevention Ref 0 TAB Arformoterol Neb (Brovana Neb) 15 Mcg/2 Ml Vial 1 NEBULE NEB BID Maintenance treatment of bronchoconstriction in COPD. Broncospasm #60 NEBULE Budesonide-Formoterol Inh (Symbicort Inh) 160-4.5 Mcg/Act Aero 2 PUFF INH BID #1 Ref 0 INHALER Glimepiride (Glimepiride) 4 Mg Tab 4 MG PO BIDAC Blood Sugar Management #60 Ref 0 TAB Levalbuterol Neb (Xopenex Neb) 0.31 Mg/3 Ml Neb 0.31 MG NEB QID Breathing Treatment #120 Ref 0 NEBULE Levothyroxine (Levothyroxine) 125 Mcg Tab 125 MCG PO DAILY Thyroid #30 Ref 0 TAB Metoclopramide (Reglan) 5 Mg Tab 5 MG PO TIDAC GASTROPARESIS Days 30 Ref 0 TAB Metoprolol Tartrate (Lopressor) 50 Mg Tab 50 MG PO BID TACHYCARDIA #60 Ref 1 TAB Potassium Chloride ER (Potassium Chloride ER) 10 Meq Tab 10 MEQ PO DAILY Electrolyte Replacement #30 Ref 0 TAB Ranitidine (Zantac) 150 Mg Tab 150 MG PO DAILY Reduce Stomach Acid #30 Ref 0 TAB Discontinued Medications: Diltiazem CD 24 HR (Cardizem CD 24 HR) 240 Mg Caper 240 MG PO DAILY ATRIAL FIBRILLATION #30 Ref 1 CAP Torsemide (Torsemide) 20 Mg Tab 20 MG PO DAILY #30 Ref 0 TAB Zolpidem (Ambien) 5 Mg Tab 5 MG PO HS PRN INSOMNIA #14 Ref 0 TAB Colt Magaña MD Feb 20, 2017 09:28
--- NOTE | 2017-02-20 12:39 | HHI.FF ---
Face to Face Verification Diagnosis: (1) Pneumonia (2) Atrial fibrillation with rapid ventricular response Physical Therapy Order: Evaluate and Treat Home Health Nursing Order: Medical education Signs/symptoms of disease process Medication education-adverse effect Nursing assessment with vital signs I have seen patient Toshia Ortiz on 02/20/17. My clinical findings support the need for the requested home health care services because: Ltd mobility - disease progression I certify that my clinical findings support that this patient is homebound because: Unsteady gait/balance Colt Magaña MD Feb 20, 2017 12:39
--- NOTE | 2017-02-20 13:28 | HHI.FF ---
Face to Face Verification Diagnosis: (1) Atrial fibrillation with rapid ventricular response Home Health Nursing Order: Medical education Signs/symptoms of disease process Medication education-adverse effect Nursing assessment with vital signs I have seen patient Toshia Ortiz on 02/20/17. My clinical findings support the need for the requested home health care services because: Ltd mobility - disease progression I certify that my clinical findings support that this patient is homebound because: Poor cardiac reserve Colt Magaña MD Feb 20, 2017 13:28
== END 2017-02-20 14:06 | disposition home health service (06) | DRG 308 ==
LOC: NEPE 06:46 → NEDA 09:16 → HCIS 13:07
PROVIDERS: ADMIT Internal Medicine; ATTEND Internal Medicine
DX: I48.2 Chronic atrial fibrillation (principal); I50.33 Acute on chronic diastolic (congestive) heart failure; J18.9 Pneumonia, unspecified organism; N17.9 Acute kidney failure, unspecified; J44.0 Chronic obstructive pulmonary disease with (acute) lower respiratory infection; D69.6 Thrombocytopenia, unspecified; E11.22 Type 2 diabetes mellitus with diabetic chronic kidney disease; J44.1 Chronic obstructive pulmonary disease with (acute) exacerbation; E11.649 Type 2 diabetes mellitus with hypoglycemia without coma; I49.5 Sick sinus syndrome; Z99.81 Dependence on supplemental oxygen; T38.0X5A Adverse effect of glucocorticoids and synthetic analogues, initial encounter; N18.9 Chronic kidney disease, unspecified; R41.0 Disorientation, unspecified; I25.10 Atherosclerotic heart disease of native coronary artery without angina pectoris; I12.9 Hypertensive chronic kidney disease with stage 1 through stage 4 chronic kidney disease, or unspecified chronic kidney disease; E03.9 Hypothyroidism, unspecified; E78.5 Hyperlipidemia, unspecified; I25.2 Old myocardial infarction; J45.909 Unspecified asthma, uncomplicated; K74.60 Unspecified cirrhosis of liver; M81.0 Age-related osteoporosis without current pathological fracture; B19.20 Unspecified viral hepatitis C without hepatic coma; Z86.73 Personal history of transient ischemic attack (TIA), and cerebral infarction without residual deficits; Z95.0 Presence of cardiac pacemaker; Z95.5 Presence of coronary angioplasty implant and graft; Z79.84 Long term (current) use of oral hypoglycemic drugs
CPT/HCPCS: 71010; 80048; 80053; 82550; 82552; 82948; 83036; 83605; 83735; 83880; 84484; 85025; 85610; 85730; 87040; 87070; 87205; 93005; 94640; 94664; 96365; 96376; J0456; J1815; J2920; J7050; J7614

== ENCOUNTER 2017-03-09 23:04 | Inpatient (IN) | payer MEDICARE, MEDICAID ==
[~2017-03-09] VITALS: Ht 149.9 cm; Wt 54.7 kg
[~2017-03-09 23:04] MED LIST changes: -AMBI5TAB PO; -CARA1TAB6 PO; +CARD180C5 PO; -CARD240C6 PO; -ESCI10TA PO; +LEVA750T PO; -LEVO250T3 PO; +LISI-515 PO; -TORS20TA PO; +TORS5TAB2 PO; -TRAD5TAB PO
[2017-03-09 23:07] VITALS: BP 168/81; PULSE 92; RESP 22; TEMP 98.7; O2SAT 89
--- NOTE | 2017-03-09 23:28 | PD ---
HPI Chief Complaint: Respiratory Distress Time Seen by Provider: 23:19 Travel History International Travel<30 days: No Contact w/Intl Traveler<30days: No Traveled to known affect area: No History of Present Illness HPI Patient is Telugu-speaking only and prefers sees her daughter for translation. History obtained using daughter as product inspection coordinator as well as through chart review. 82-year-old female with history of hep C, thrombocytopenia, cirrhosis, CKD, CHF , CAD, type 2 diabetes, asthma, here for evaluation of shortness of breath and a tingling in her chest. Symptoms started around 6:00 PM today. Patient's daughter tried to give her some albuterol nebulized treatments without improvement in symptoms. Patient was well all day today. Dyspnea is at rest, worse with exertion. Currently she is denying any chest pain. PFSH Past Medical History Hx Anticoagulant Therapy: Yes Arthritis: Yes (osteoporosis) Asthma: Yes Blood Disorders: No Anxiety: No Depression: No Heart Rhythm Problems: Yes Cancer: No Cardiac Catheterization: Yes (10-01-09) Cardiovascular Problems: Yes High Cholesterol: No Chemotherapy: No Chest Pain: No Congestive Heart Failure: Yes Cirrhosis: Yes COPD: No Cerebrovascular Accident: Yes ([place]; PACEMAKER) Diabetes: Yes (Type 2 ) Patient Takes Glucophage: No Diminished Hearing: No Endocrine: Yes Gastrointestinal Disorders: Yes GERD: No Genitourinary: No Headaches: No Hepatitis: Yes (hep c) Hiatal Hernia: No Hypertension: Yes Immune Disorder: No Implanted Vascular Access Dvce: Yes Kidney Stones: No Musculoskeletal: No Neurologic: No Psychiatric: No Reproductive: No Respiratory: Yes (ASTHMA) Migraines: No Myocardial Infarction: Yes Radiation Therapy: No Renal Failure: No Sickle Cell Disease: No Sleep Apnea: No Thyroid Disease: Yes Ulcer: No Menopausal: Yes : 5 Para: 4 Miscarriage: 1 Past Surgical History Abdominal Surgery: Yes (cholecystectomy ) AICD: No Appendectomy: No Arteriovenous Shunt: No Body Medical Devices: PACEMAKER Cardiac Surgery: Yes (PACEMAKER) Cholecystectomy: Yes Coronary Stent: Yes (x2) Ear Surgery: Yes Endocrine Surgery: No Eye Surgery: No Genitourinary Surgery: No Gynecologic Surgery: Yes (hysterectomy ) Hysterectomy: Yes Insulin Pump: No Joint Replacement: No Oral Surgery: No Pacemaker: Yes Thoracic Surgery: No Other Surgery: Yes (STENTS PLACED) Social History Alcohol Use: No Tobacco Use: No Substance Use: No Allergies-Medications (Allergen,Severity, Reaction): Coded Allergies: Penicillin (Verified Allergy, Severe, Anaphylaxis, 03/09/17) Reported Meds & Prescriptions Reported Meds & Active Scripts Active Torsemide 5 Mg Tab 5 Mg PO DAILY 30 Days Cardizem CD 24 HR (Diltiazem CD 24 HR) 180 Mg Caper 360 Mg PO DAILY 30 Days Lopressor (Metoprolol Tartrate) 50 Mg Tab 50 Mg PO BID Reported Iron (Ferrous Sulfate) 325 Mg Tab 325 Mg PO BIDPC Take after a meal. Lisinopril 5 Mg Tab 5 Mg PO DAILY Alendronate (Alendronate Sodium) 70 Mg Tab 70 Mg PO Q7D Nystatin Liq 100,000 unit/ml Susp 5 Ml SWISH-SWAL QID Proair Hfa 8.5 GM Inh (Albuterol Sulfate) 90 Mcg/Act Aer 1 Puff INH BID PRN 108 mcg/actuation Eliquis (Apixaban) 2.5 Mg Tab 2.5 Mg PO BID Glimepiride 4 Mg Tab 4 Mg PO BIDAC Zantac (Ranitidine HCl) 150 Mg Tab 150 Mg PO DAILY Brovana Neb (Arformoterol Neb) 15 Mcg/2 Ml Vial 1 Nebule NEB BID Maintenance treatment of bronchoconstriction in COPD. Levothyroxine (Levothyroxine Sodium) 125 Mcg Tab 125 Mcg PO DAILY Potassium Chloride ER (Potassium Chloride) 10 Meq Tab 10 Meq PO DAILY Xopenex Neb (Levalbuterol HCl) 0.31 Mg/3 Ml Neb 0.31 Mg NEB QID Symbicort Inh (Budesonide/Formoterol Fumarate) 160-4.5 Mcg/Act Aero 2 Puff INH BID Review of Systems Except as stated in HPI: all other systems reviewed are Neg Physical Exam Narrative GENERAL: Well-developed, well-nourished, mild to moderate respiratory distress, speaking full sentences. SKIN: Focused skin assessment warm/dry. HEAD: Atraumatic. Normocephalic. EYES: Pupils equal and round. No scleral icterus. No injection or drainage. ENT: Mucous membranes pink and moist. NECK: Trachea midline. No JVD. CARDIOVASCULAR: Regular rate and rhythm. No murmur appreciated. RESPIRATORY: Accessory muscle use. Bibasilar rales. Poor air movement bilaterally. GASTROINTESTINAL: Abdomen soft, non-tender, nondistended. MUSCULOSKELETAL: No obvious deformities. No clubbing. No cyanosis. Mild bilateral lower extremity edema. NEUROLOGICAL: Awake and alert. No obvious cranial nerve deficits. Motor grossly within normal limits. Normal speech. PSYCHIATRIC: Appropriate mood and affect; insight and judgment normal. Data Data Last Documented VS Vital Signs Date Time Temp Pulse Resp B/P Pulse Ox O2 Delivery O2 Flow Rate FiO2 03/10/17 00:58 74 18 152/73 93 Nasal Cannula 2 03/09/17 23:07 98.7 Orders Complete Blood Count With Diff (03/09/17 23:23) Comprehensive Metabolic Panel (03/09/17 23:23) B-Type Natriuretic Peptide (03/09/17 23:23) Act Partial Throm Time (Ptt) (03/09/17 23:23) Prothrombin Time / Inr (Pt) (03/09/17 23:23) Magnesium (Mg) (03/09/17 23:23) Ckmb (Isoenzyme) Profile (03/09/17 23:23) Troponin I (03/09/17 23:23) Arterial Blood Gas (Abg) (03/09/17 23:23) Iv Access Insert/Monitor (03/09/17 23:23) Electrocardiogram (03/09/17 23:23) Ecg Monitoring (03/09/17 23:23) Oximetry (03/09/17 23:23) Oxygen Administration (03/09/17 23:23) Chest, Single Ap (03/09/17 23:23) Sodium Chloride 0.9% Flush (Ns Flush) (03/09/17 23:30) Methylprednisolone So Succ Inj (Solumedr (03/09/17 23:30) Albuterol-Ipratropium Neb (Duoneb Neb) (03/09/17 23:30) Furosemide Inj (Lasix Inj) (03/10/17 01:15) Labs Laboratory Tests Test 03/09/17 03/09/17 03/10/17 23:42 23:45 01:00 Blood Gas Puncture Site LT RADIAL Blood Gas Patient Temperature 98.6 Blood Gas HCO3 28 mmol/L Blood Gas Base Excess 3.7 mmol/L Blood Gas Oxygen Saturation 93 % Arterial Blood pH 7.44 Arterial Blood Partial 41 mmHg Pressure CO2 Arterial Blood Partial 74 mmHG Pressure O2 Arterial Blood Oxygen Content 13.6 Vol % Arterial Blood 2.2 % Carboxyhemoglobin Arterial Blood Methemoglobin 0.1 % Blood Gas Hemoglobin 10.3 G/DL Oxygen Delivery Device NASAL CANNULA Blood Gas Liter Flow 2 L/M Blood Gas Inspired Oxygen 96 % White Blood Count 10.2 TH/MM3 Red Blood Count 4.01 MIL/MM3 Hemoglobin 11.2 GM/DL Hematocrit 33.1 % Mean Corpuscular Volume 82.7 FL Mean Corpuscular Hemoglobin 28.0 PG Mean Corpuscular Hemoglobin 33.9 % Concent Red Cell Distribution Width 16.4 % Platelet Count 114 TH/MM3 Mean Platelet Volume 10.3 FL Neutrophils (%) (Auto) 65.8 % Lymphocytes (%) (Auto) 20.7 % Monocytes (%) (Auto) 11.5 % Eosinophils (%) (Auto) 1.3 % Basophils (%) (Auto) 0.7 % Neutrophils # (Auto) 6.7 TH/MM3 Lymphocytes # (Auto) 2.1 TH/MM3 Monocytes # (Auto) 1.2 TH/MM3 Eosinophils # (Auto) 0.1 TH/MM3 Basophils # (Auto) 0.1 TH/MM3 CBC Comment DIFF FINAL Differential Comment Sodium Level 135 MEQ/L Potassium Level 4.0 MEQ/L Chloride Level 98 MEQ/L Carbon Dioxide Level 29.5 MEQ/L Anion Gap 8 MEQ/L Blood Urea Nitrogen 13 MG/DL Creatinine 1.23 MG/DL Estimat Glomerular Filtration 42 ML/MIN Rate Random Glucose 371 MG/DL Calcium Level 8.1 MG/DL Magnesium Level 1.5 MG/DL Total Bilirubin 1.1 MG/DL Aspartate Amino Transf 34 U/L (AST/SGOT) Alanine Aminotransferase 41 U/L (ALT/SGPT) Alkaline Phosphatase 99 U/L Total Creatine Kinase 73 U/L Troponin I LESS THAN 0.02 NG/ML B-Type Natriuretic Peptide 674 PG/ML Total Protein 8.4 GM/DL Albumin 3.3 GM/DL Prothrombin Time 13.4 SEC Prothromb Time International 1.2 RATIO Ratio Activated Partial 30.9 SEC Thromboplast Time MDM Medical Decision Making Medical Screen Exam Complete: Yes Emergency Medical Condition: Yes Interpretation(s) EKG: Irregularly irregular, rate 69, nonspecific ST/T-wave abnormality Differential Diagnosis Pneumonia, pulmonary edema, reactive airway disease, pneumothorax, ACS Narrative Course Initial vital signs show heart rate 92, blood pressure 160/81, pulse ox 89% on room air, oral temp of 98.7F. CBC shows WBC 10.2, hemoglobin 11.2, hematocrit 33.1, platelets 114. CMP is remarkable for creatinine 1.23, GFR 42, random glucose 371, otherwise essentially unremarkable. Cardiac enzymes are negative. BNP is 674. Chest x-ray: CONCLUSION: 1. Cardiomegaly with increased pulmonary vascularity and small pleural effusions , likely CHF. 2. Bibasilar densities Patient was given 3 DuoNeb treatments with only slight improvement in respiratory status. She is still short of breath and has bibasilar rales. She will be given 40 mg of IV Lasix. The patient and the patient's daughter were made aware of all findings per she will be admitted for an observation for CHF, hypoxia, dyspnea. Case discussed with hospitalist Dr. Islas who will admit the patient to her service. Diagnosis Primary Impression: CHF (congestive heart failure) Qualified Code: I50.9 - Congestive heart failure, unspecified congestive heart failure chronicity, unspecified congestive heart failure type Additional Impressions: Hypoxia Dyspnea Qualified Code: R06.00 - Dyspnea, unspecified type Admitting Information Admitting Physician Requests: Admit Maverick Steven MD Mar 09, 2017 23:28
[2017-03-09] MEDS ORDERED: methylPREDNISolone SOD SUCC 125 MG/2 ML VIAL IVP ONE (23:30)
[2017-03-09] MEDS ORDERED: SODIUM CHLORIDE 0.9% FLUSH 10 ML FLUSH IVF PRN (23:30)
[2017-03-09] MEDS ORDERED: ALBUAER3 INH (23:31)
[2017-03-09] MEDS ORDERED: FERR1TAB36 PO (23:31)
[2017-03-09] MEDS ORDERED: NYST1000 SWISH-SWAL (23:31)
[2017-03-09] MEDS ORDERED: ALEN1TAB48 PO (23:31)
[2017-03-09] MEDS ORDERED: LISI-519 PO (23:31)
[2017-03-09] MEDS: RESP: ALBUTEROL 2.5 MG/IPRATROPIUM 0.5 MG NEB (SCH) INH ×2 (23:39→23:40)
[2017-03-09 23:53] LABS: BLOOD GAS BASE EXCESS 3.7 mmol/L (-2-2); BLOOD GAS CARBOXYHEMOGLOBIN 2.2 % (0-4); BLOOD GAS HCO3 28 mmol/L (22-26); BLOOD GAS METHEMOGLOBIN 0.1 % (0-2); BLOOD GAS O2 HGB SATURATION 93 % (90-100); BLOOD GAS OXYGEN CONTENT 13.6 Vol % (12.0-20.0); BLOOD GAS PCO2 41 mmHg (38-42); BLOOD GAS PO2 74 mmHG (61-120); BLOOD GAS TOTAL HGB 10.3 G/DL (12.0-16.0); CRITICAL VALUE NO; LITER FLOW 2 L/M; OXYGEN DEVICE NASAL CANNULA; TEMP CORR TO 98.6
[2017-03-09 23:54] LABS: DRAW SITE LT RADIAL; FIO2 96 %; NUMBER OF ARTERIAL PUNCTURES 1; STAT YES; ULNAR PULSE PRESENT
[2017-03-10] VITALS (10 sets, daily range): BP systolic 123–152; BP diastolic 63–92; PULSE 73–90; RESP 16–20; TEMP 97.9–99; O2SAT 92–98
[2017-03-10 00:01] LABS: AUTOMATED NEUTROPHIL # 6.7 TH/MM3 (1.8-7.7); BASOPHIL # 0.1 TH/MM3 (0-0.2); BASOPHIL % 0.7 % (0.0-2.0); EOSINOPHIL # 0.1 TH/MM3 (0-0.4); EOSINOPHIL % 1.3 % (0.0-4.0); HEMATOCRIT 33.1 % (35.0-46.0); HEMO FLAGS DIFF FINAL; LYMPH % 20.7 % (9.0-44.0); LYMPHOCYTE # 2.1 TH/MM3 (1.0-4.8); MEAN CELL VOLUME 82.7 FL (80.0-100.0); MEAN CORPUSCULAR HGB CONC 33.9 % (32.0-36.0); MONO % 11.5 % (0.0-8.0); NEUT % 65.8 % (16.0-70.0); PLATELET COUNT 114 TH/MM3 (150-450); RED BLOOD COUNT 4.01 MIL/MM3 (4.00-5.30); RED CELL DISTRIBUTION WIDTH 16.4 % (11.6-17.2); WHITE BLOOD COUNT 10.2 TH/MM3 (4.0-11.0)
--- NOTE | 2017-03-10 00:06 | RADRPT ---
EXAM DATE/TIME: 03/09/2017 23:24 [facility] COMPARISON: CHEST SINGLE AP, February 15, 2017, 7:28. INDICATIONS : Shortness of breath. MEDICAL HISTORY : Cardiovascular disease. Diabetes mellitus type II. Osteoporosis. SURGICAL HISTORY : Pacemaker. Cholecystectomy. Hysterectomy. ENCOUNTER: Initial ACUITY: 1 day PAIN SCORE: 0/10 LOCATION: Bilateral chest FINDINGS: A single view of the chest demonstrates cardiomegaly and bibasilar densities with small pleural effus ions. Increased pulmonary vascularity. Left-sided pacemaker unchanged.. The cardiomediastinal contou rs are unremarkable. Osseous structures are intact. CONCLUSION: 1. Cardiomegaly with increased pulmonary vascularity and small pleural effusions, likely CHF. 2. Bibasilar densities. Boaz Mckeon MD on March 10, 2017 at 0:00 Board Certified Radiologist. This report was verified electronically.
[2017-03-10 00:41] LABS: ALKALINE PHOSPHATASE 99 U/L (45-117); ALT (GPT) 41 U/L (10-53); ANION GAP 8 MEQ/L (5-15); AST (GOT) 34 U/L (15-37); BICARBONATE 29.5 MEQ/L (21.0-32.0); BLOOD UREA NITROGEN 13 MG/DL (7-18); CHLORIDE 98 MEQ/L (98-107); CREATINE KINASE 73 U/L (26-192); GLOMERULAR FILTRATION RATE 42 ML/MIN (>89); MAGNESIUM 1.5 MG/DL (1.5-2.5); SODIUM (NA) 135 MEQ/L (136-145); TOTAL BILIRUBIN ADULT 1.1 MG/DL (0.2-1.0)
[2017-03-10] MEDS ORDERED: FUROSEMIDE 40 MG/4 ML VIAL IV PUSH ONE (01:15)
[2017-03-10 01:23] LABS: APTT (PATIENT) 30.9 SEC (24.3-30.1); INTERNATIONAL NORMALIZED RATIO 1.2 RATIO; PROTHROMBIN TIME - PATIENT 13.4 SEC (9.8-11.6)
[2017-03-10] MEDS ORDERED: SODIUM CHLORIDE 0.9% FLUSH 10 ML FLUSH IV FLUSH PRN (01:45)
[2017-03-10] MEDS ORDERED: NALOXONE HCL 0.4 MG/ML AMP IV PRN (01:45)
--- NOTE | 2017-03-10 04:54 | HHI.HP ---
HPI Service [facility] Primary Care Physician Milly Chicas M.D. Admission Diagnosis CHF, hypoxia, dyspnea Diagnoses: Chief Complaint: "I couldn't breathe." Travel History International Travel<30 Days: No Contact w/Intl Traveler <30 Da: No Traveled to Known Affected Are: No History of Present Illness This is a 82 year old Khmer speaking female patient with a past medical history which includes: Diastolic CHF Echocardiogram 06/2016 showed EF of 60%, Atrial fibrillation on Eliquis, CAD with cardiac stent x2, HTN, DM, hepatitis C with cirrhosis, asthma, hypothyroid. Patient seen with daughter present for translation. Patient reports that she came to the ER because, "I couldn't breath." Patient reports SOB x 1 day with BLE edema. Patient was recently seen by her surveillance dual rate officer Lasix 20 mg was changed to torsemide 5 mg daily. Patient also complains that she is Constipated with firm stool last BM 2 days ago at that time patient had One episode of bright red blood on tissue after having BM. Denies cough, fever, vomiting blood, blood in urine At time of admission patient was tachypneic, hypoxic with bibasilar rales, BNP 674. Patient was given 40 mg IV Lasix in ER at this time patient reports feeling much better. Review of Systems Except as stated in HPI: all other systems reviewed are Neg Past Family Social History Past Medical History CHF, Atrial fibrillation on Eliquis, CAD with cardiac stent x2, HTN, DM, hepatitis C with cirrhosis, asthma, hypothyroid Past Surgical History cholecystectomy hysterectomy pacemaker implantation Reported Medications Torsemide 5 Mg Tab 5 Mg PO DAILY 30 Days Cardizem CD 24 HR (Diltiazem CD 24 HR) 180 Mg Caper 360 Mg PO DAILY 30 Days Lopressor (Metoprolol Tartrate) 50 Mg Tab 50 Mg PO BID Iron (Ferrous Sulfate) 325 Mg Tab 325 Mg PO BIDPC Take after a meal. Lisinopril 5 Mg Tab 5 Mg PO DAILY Alendronate (Alendronate Sodium) 70 Mg Tab 70 Mg PO Q7D Nystatin Liq 100,000 unit/ml Susp 5 Ml SWISH-SWAL QID Proair Hfa 8.5 GM Inh (Albuterol Sulfate) 90 Mcg/Act Aer 1 Puff INH BID PRN 108 mcg/actuation Eliquis (Apixaban) 2.5 Mg Tab 2.5 Mg PO BID Glimepiride 4 Mg Tab 4 Mg PO BIDAC Zantac (Ranitidine HCl) 150 Mg Tab 150 Mg PO DAILY Brovana Neb (Arformoterol Neb) 15 Mcg/2 Ml Vial 1 Nebule NEB BID Maintenance treatment of bronchoconstriction in COPD. Levothyroxine (Levothyroxine Sodium) 125 Mcg Tab 125 Mcg PO DAILY Potassium Chloride ER (Potassium Chloride) 10 Meq Tab 10 Meq PO DAILY Xopenex Neb (Levalbuterol HCl) 0.31 Mg/3 Ml Neb 0.31 Mg NEB QID Symbicort Inh (Budesonide/Formoterol Fumarate) 160-4.5 Mcg/Act Aero 2 Puff INH BID Allergies: Coded Allergies: Penicillin (Verified Allergy, Severe, Anaphylaxis, 03/09/17) Active Ordered Medications Current Medications Medications (Trade) Dose Ordered Sig/Marlon Route Start Time Stop Time Status Last Admin (NS Flush) 2 ml UNSCH PRN IV FLUSH 03/10/17 01:45 (NS Flush) 2 ml BID IV FLUSH 03/10/17 09:00 (Narcan Inj) 0.4 mg UNSCH PRN IV 03/10/17 01:45 (Lasix Inj) 40 mg BID@09,18 IV PUSH 03/10/17 09:00 (D50w (Vial) Inj) 25 ml UNSCH PRN IV PUSH 03/10/17 05:00 (Glucagon Inj) 1 mg UNSCH PRN OTHER 03/10/17 05:00 Family History denies tobacco use now or in the past denies ETOH use denies illicit drug use Social History sister had breast ca daughter ovarian ca Physical Exam Vital Signs Vital Signs Date Time Temp Pulse Resp B/P Pulse Ox O2 Delivery O2 Flow Rate FiO2 03/10/17 03:37 Nasal Cannula 2.00 03/10/17 03:12 82 18 145/82 96 Nasal Cannula 2 03/10/17 00:58 74 18 152/73 93 Nasal Cannula 2 03/09/17 23:32 98 Nasal Cannula 2 03/09/17 23:16 03/09/17 23:07 98.7 92 22 168/81 89 Room Air Physical Exam GENERAL: This is a well-nourished, well-developed patient, in no apparent distress. At this time per ER upon arrival patient was ill-appearing, tachypneic, with bibasilar rales SKIN: No rashes, ecchymoses or lesions. Cool and dry. HEAD: Atraumatic. Normocephalic. No temporal or scalp tenderness. EYES: Extraocular motions intact. No scleral icterus. No injection or drainage. CARDIOVASCULAR: Regular rate and rhythm without murmurs, gallops, or rubs. RESPIRATORY: Diminished bilateral bases GASTROINTESTINAL: Abdomen soft, non-tender, nondistended. No hepato-splenomegaly , or palpable masses. No guarding. MUSCULOSKELETAL: BLE 1+ pitting edema. No calf tenderness. Negative Homans sign bilaterally. NEUROLOGICAL: Awake and alert. No focal. Motor and sensory grossly within normal limits. 4-5 out of 5 muscle strength in all muscle groups. Normal speech. Laboratory Laboratory Tests Test 03/09/17 03/09/17 03/10/17 23:42 23:45 01:00 Blood Gas Puncture Site LT RADIAL Blood Gas Patient Temperature 98.6 Blood Gas HCO3 28 Blood Gas Base Excess 3.7 Blood Gas Oxygen Saturation 93 Arterial Blood pH 7.44 Arterial Blood Partial 41 Pressure CO2 Arterial Blood Partial 74 Pressure O2 Arterial Blood Oxygen Content 13.6 Arterial Blood 2.2 Carboxyhemoglobin Arterial Blood Methemoglobin 0.1 Blood Gas Hemoglobin 10.3 Oxygen Delivery Device NASAL CANNULA Blood Gas Liter Flow 2 Blood Gas Inspired Oxygen 96 White Blood Count 10.2 Red Blood Count 4.01 Hemoglobin 11.2 Hematocrit 33.1 Mean Corpuscular Volume 82.7 Mean Corpuscular Hemoglobin 28.0 Mean Corpuscular Hemoglobin 33.9 Concent Red Cell Distribution Width 16.4 Platelet Count 114 Mean Platelet Volume 10.3 Neutrophils (%) (Auto) 65.8 Lymphocytes (%) (Auto) 20.7 Monocytes (%) (Auto) 11.5 Eosinophils (%) (Auto) 1.3 Basophils (%) (Auto) 0.7 Neutrophils # (Auto) 6.7 Lymphocytes # (Auto) 2.1 Monocytes # (Auto) 1.2 Eosinophils # (Auto) 0.1 Basophils # (Auto) 0.1 CBC Comment DIFF FINAL Differential Comment Sodium Level 135 Potassium Level 4.0 Chloride Level 98 Carbon Dioxide Level 29.5 Anion Gap 8 Blood Urea Nitrogen 13 Creatinine 1.23 Estimat Glomerular Filtration 42 Rate Random Glucose 371 Calcium Level 8.1 Magnesium Level 1.5 Total Bilirubin 1.1 Aspartate Amino Transf 34 (AST/SGOT) Alanine Aminotransferase 41 (ALT/SGPT) Alkaline Phosphatase 99 Total Creatine Kinase 73 Troponin I LESS THAN 0.02 B-Type Natriuretic Peptide 674 Total Protein 8.4 Albumin 3.3 Prothrombin Time 13.4 Prothromb Time International 1.2 Ratio Activated Partial 30.9 Thromboplast Time Result Diagram: 03/09/17 2345 03/09/17 234 Imaging Last Impressions Chest X-Ray 03/09/172322 Signed Impressions: Service Date/Time: Tuesday, March 09, 2017 23:24 - CONCLUSION: 1. Cardiomegaly with increased pulmonary vascularity and small pleural effusions, likely CHF. 2. Bibasilar densities. Boaz Mckeon MD Assessment and Plan Problem List: (1) SOB (shortness of breath) ICD Code: R06.02 Status: Acute (2) CHF exacerbation ICD Code: I50.9 Status: Acute Assessment and Plan This is a 82 year old Khmer speaking female patient with a past medical history which includes: CHF Echocardiogram 06/2016 showed EF of 60%, Atrial fibrillation on Eliquis, CAD with cardiac stent x2, HTN, DM, hepatitis C with cirrhosis, asthma, hypothyroid. Patient seen with daughter present for translation. Patient reports that she came to the ER because, "I couldn't breath." Patient also reports SOB x 1 day with BLE edema. Patient was seen by her surveillance dual rate officer 3 days ago and Lasix 20mg was changed to torsemide 5 mg daily. At time of admission patient was tachypneic, hypoxic with bibasilar rales, BNP 674. Patient was given 40 mg IV Lasix in ER at this time patient reports feeling much better. acute exacerbation of chronic diastolic CHF last in hospital echocardiogram 2015 showed EF of 60% Hypoxic on arrival 89% on room air Lasix 40 mg IV twice a day Consult cardiology Diabetes mellitus type 2 Hold oral diabetic medication at this time Accu-Cheks before meals and at bedtime with low-dose insulin sliding scale coverage Hypertension with history of atrial fibrillation tachycardia continue metoprolol 40 mg twice a day also continue lisinopril 5 mg by mouth daily Atrial fibrillation continue metoprolol 50mg PO BID as well as Cardizem 360 mg by mouth daily Continue Eliquis GERD continue Zantac Hypothyroidism continue levothyroxine 125 mcg by mouth daily COPD continue home medications including Symbicort, pro-air as needed and Xopenex nebulizer DVT prophylaxis patient is on Eliquis Discussed with ER provider, nursing, patient and patient's daughter who is at bedside Written by Kathy Kat, acting as scribe for Dr. Islas on 03/10/17 at 06: 32. This note was transcribed by scribe [Kathy Kat]. I, Dr. Myrtle Islas personally performed the history, physical exam, and medical decision making; and confirmed the accuracy of the information in the transcribed note. Authenticated by Dr. Myrtle Islas on 03/10/17 at 06:32. Physician Certification 2 Midnight Certification Type: Admission for Inpatient Services Order for Inpatient Services The services are ordered in accordance with Medicare regulations or non- Medicare payer requirements, as applicable. In the case of services not specified as inpatient-only, they are appropriately provided as inpatient services in accordance with the 2-midnight benchmark. Estimated LOS (days): 2 days is the estimated time the patient will need to remain in the hospital, assuming treatment plan goals are met and no additional complications. Post-Hospital Plan: Home Problem Qualifiers (1) CHF exacerbation: Qualified Code: I50.33 - Acute on chronic diastolic congestive heart failure Kathy Kat Mar 10, 2017 04:54 Myrtle Islas MD March 28, 2017 05:15
[2017-03-10] MEDS ORDERED: DEXTROSE 50% IN WATER 50 ML VIAL(D50) IV PUSH PRN (05:00)
[2017-03-10] MEDS ORDERED: GLUCAGON 1 MG/ML VIAL OTHER PRN (05:00)
[2017-03-10] MEDS: INSULIN ASPART SUPPLEMENTAL SCALE SQ SCH ×4 (06:01→21:48)
[2017-03-10] MEDS ORDERED: ALBUTEROL SULFATE 90 MCG/ACT HFA 8 GM INHALER INH PRN (06:30)
[2017-03-10] MEDS ORDERED: ALBUTEROL SULFATE 90 MCG/ACT HFA 18 GM INHALER INH PRN (06:45)
[2017-03-10] MEDS: LEVOTHYROXINE SODIUM 125 MCG TAB PO SCH (07:15)
[2017-03-10] MEDS: FAMOTIDINE 20 MG TAB PO SCH (08:42)
[2017-03-10] MEDS: METOPROLOL TARTRATE 50 MG TAB PO SCH ×2 (08:42→21:48)
[2017-03-10] MEDS: FERROUS SULFATE 325 MG (65 MG ELEMENTAL IRON) TAB PO SCH ×2 (08:42→16:31)
[2017-03-10] MEDS: APIXABAN 2.5 MG TABLET PO SCH ×2 (08:42→21:48)
[2017-03-10] MEDS: SODIUM CHLORIDE 0.9% FLUSH 10 ML FLUSH IV FLUSH SCH ×2 (08:43→21:47)
[2017-03-10] MEDS: DILTIAZEM-CD 180 MG CAP ER PO SCH (08:43)
[2017-03-10] MEDS: BUDESONIDE-FORMOTEROL 160/4.5 MCG INHALER INH SCH ×2 (08:43→21:47)
[2017-03-10] MEDS: FUROSEMIDE 40 MG/4 ML VIAL IV PUSH SCH ×2 (08:43→16:31)
[2017-03-10] MEDS: LISINOPRIL 5 MG TAB PO SCH (08:43)
[2017-03-10] MEDS ORDERED: ARFORMOTEROL NEB SCH (09:00)
[2017-03-10] MEDS: INSULIN DETEMIR 100 UNITS/ML VIAL SQ SCH (11:00)
--- NOTE | 2017-03-10 11:18 | HHI.PR ---
Addendum to Inpatient Note Addendum Reason: Additional Documentation Additional Information The patient was resting comfortably in a chair. She said she walked around earlier with her cane. She had no acute concerns at this time. Discussed with nursing. Continue diuresis. Follow-up with cardiology. Glucose was elevated. Start insulin sliding scale and Levemir 10 units daily. Home diabetes medications are on hold. Steve Olivera DO Mar 10, 2017 11:17
[2017-03-10 12:54] LABS: BICARBONATE 29.1 MEQ/L (21.0-32.0); POTASSIUM 3.8 MEQ/L (3.5-5.1)
--- NOTE | 2017-03-10 16:26 | MB ---
cc: Kenzie DATE OF CONSULTATION: 03/10/2017. HISTORY OF PRESENT ILLNESS: Thank you Dr. Olivera for asking us to see this 82-year-old Salvadorean female who presents with episodes of marked shortness of breath. She has a history of atrial fibrillation on Eliquis. She has had a history of coronary artery disease status post stent placement x2. She has a history of hypertension, diabetes, hepatitis C, cirrhosis, asthma. She now presents with increasing shortness of breath. She was seen in the office on 03/04/2017. She was on Torsemide milligrams p.o. daily, which was left alone. Her ejection fraction on echocardiogram was noted at 60% and it was decided therefore not to change any medications. She had recently been in the hospital with a productive cough and chills and had a temperature of 102 but has subsequently improved. She was noted to have an increased heart rate and therefore had had her diltiazem increased and her metoprolol increased. Her blood pressure was also elevated at 162/78. She was seen in the emergency room with atrial fibrillation with rapid ventricular response and it was felt that an increase in medications was recommended. PAST MEDICAL HISTORY: 1. Congestive heart failure. 2. Atrial fibrillation. 3. Cardiac stents x2. 4. Hypertension. 5. Diabetes. 6. Hepatitis C with cirrhosis. 7. Asthma. PAST SURGICAL HISTORY: Her past surgical history is positive for: 1. Cholecystectomy. 2. Hysterectomy. 3. Pacemaker implantation. FAMILY HISTORY: Family history is negative. PHYSICAL EXAMINATION: VITAL SIGNS: On examination, pulse 82, blood pressure 145/82, respiratory rate 18. HEAD, EYES, EARS, NOSE, THROAT: Eyes show no xanthelasma. Mouth shows no cyanosis or pallor. NECK: No jugular venous distention. HEART: She has two heart sounds. No murmurs. CHEST: Clear. ABDOMEN: Abdomen soft. No hepatosplenomegaly. EXTREMITIES: No evidence of edema. NEUROLOGICAL EXAMINATION: Grossly intact. SKIN: Grossly intact. LABORATORY TESTS: Hemoglobin 11.2, platelet count 114,000. Creatinine 1.28. BNP was slightly elevated at 674. Troponin less than 0.02. IMAGING STUDIES: Chest x-ray showed cardiomegaly with increased vascularity but no congestive heart failure. ASSESSMENT AND PLAN: She presents now with what sounds like congestive heart failure. She was given Lasix. She is feeling much better. She can probably be discharged in the next day or two. At this point, she still will follow up in the next week or two and at that point decide what treatment is needed. Thank you for asking us to see this very pleasant lady. NOTE: We will increase her torsemide to 10 milligrams p.o. daily. Chuck Day MD, FRCP,[facility] /2:14 PM /4:15 PM
[2017-03-10] MEDS: LEVALBUTEROL HYDROCHLORIDE NEB ×2 (16:31→20:40)
[2017-03-11] VITALS (7 sets, daily range): BP systolic 140–164; BP diastolic 65–73; PULSE 71–89; RESP 16–20; TEMP 97.2–98.6; O2SAT 92–99
[2017-03-11] MEDS: LEVOTHYROXINE SODIUM 125 MCG TAB PO SCH (06:08)
[2017-03-11] MEDS: INSULIN ASPART SUPPLEMENTAL SCALE SQ SCH ×4 (06:09→21:00)
--- NOTE | 2017-03-11 06:47 | EKG ---
Date Performed: 03/09/2017 Time Performed: 23:59:54 PTAGE: 82 years EKG: ATRIAL FIBRILLATION WITH DEMAND PACING ELECTRONIC VENTRICULAR PACEMAKER -- CONTOUR ANALYSIS BASED ON INTRINSIC RHYTHM NONSPECIFIC ST & T-WAVE ABNORMALITY ABNORMAL RHYTHM ECG PREVIOUS TRACING : 02/15/2017 07.55 DOCTOR: Bernardo Montalvo Interpretating Date/Time 03/11/2017 06:46:27
--- NOTE | 2017-03-11 06:48 | EKG ---
Date Performed: 03/10/2017 Time Performed: 08:12:54 PTAGE: 82 years EKG: SINUS TACHYCARDIA INFERIOR MYOCARDIAL INFARCTION ABNORMAL ECG Compared to PREVIOUS TRACING , sinus tachycardia has replaced atrial fibrillation. PREVIOUS TRACIN03/10/2017 05.55 DOCTOR: Bernardo Montalvo Interpretating Date/Time 03/11/2017 06:47:09
--- NOTE | 2017-03-11 06:48 | EKG ---
Date Performed: 03/10/2017 Time Performed: 05:55:56 PTAGE: 82 years EKG: Atrial fibrillation Extensive ST-T changes may be due to myocardial ischemia Abnormal ECG C ompared to PREVIOUS TRACING , demand pacing is no longer seen. PREVIOUS TRACIN03/09/2017 23.59 DOCTOR: Bernardo Montalvo Interpretating Date/Time 03/11/2017 06:46:46
[2017-03-11] MEDS: LEVALBUTEROL HYDROCHLORIDE NEB ×4 (07:37→20:14)
[2017-03-11 07:53] LABS: HEMATOCRIT 29.8 % (35.0-46.0); MEAN CELL VOLUME 81.7 FL (80.0-100.0); MEAN CORPUSCULAR HEMOGLOBIN 28.1 PG (27.0-34.0); MEAN CORPUSCULAR HGB CONC 34.5 % (32.0-36.0); PLATELET COUNT 88 TH/MM3 (150-450); RED BLOOD COUNT 3.65 MIL/MM3 (4.00-5.30); WHITE BLOOD COUNT 9.1 TH/MM3 (4.0-11.0)
[2017-03-11 07:56] LABS: REVIEW FLAG FINAL
[2017-03-11 08:28] LABS: BICARBONATE 29.3 MEQ/L (21.0-32.0); MAGNESIUM 1.6 MG/DL (1.5-2.5)
[2017-03-11 08:31] LABS: POTASSIUM 2.9 MEQ/L (3.5-5.1)
[2017-03-11] MEDS ORDERED: MAGNESIUM SULFATE 1 GM PREMIX 100 ML IV ONE (09:00)
[2017-03-11] MEDS ORDERED: POTASSIUM CHLORIDE 25 MEQ EFFERVESCENT TAB PO ONE ×2 (09:00→16:00)
[2017-03-11] MEDS: BUDESONIDE-FORMOTEROL 160/4.5 MCG INHALER INH SCH ×2 (09:00→21:00)
[2017-03-11] MEDS: DILTIAZEM-CD 180 MG CAP ER PO SCH (09:00)
[2017-03-11] MEDS: METOPROLOL TARTRATE 50 MG TAB PO SCH ×2 (09:40→22:40)
[2017-03-11] MEDS: LISINOPRIL 5 MG TAB PO SCH (09:40)
[2017-03-11] MEDS: DOCUSATE SODIUM 100 MG CAP PO SCH ×2 (09:40→22:40)
[2017-03-11] MEDS: APIXABAN 2.5 MG TABLET PO SCH ×2 (09:40→22:40)
[2017-03-11] MEDS: POLYETHYLENE GLYCOL 17 GM PKG PO SCH (09:40)
[2017-03-11] MEDS: FAMOTIDINE 20 MG TAB PO SCH (09:40)
[2017-03-11] MEDS: FERROUS SULFATE 325 MG (65 MG ELEMENTAL IRON) TAB PO SCH ×2 (09:40→16:47)
[2017-03-11] MEDS: FUROSEMIDE 40 MG/4 ML VIAL IV PUSH SCH (09:41)
[2017-03-11] MEDS: SODIUM CHLORIDE 0.9% FLUSH 10 ML FLUSH IV FLUSH SCH ×2 (09:41→22:41)
[2017-03-11] MEDS: INSULIN DETEMIR 100 UNITS/ML VIAL SQ SCH (09:41)
[2017-03-11] MEDS ORDERED: INSULIN DETEMIR 100 UNITS/ML VIAL SQ SCH ×3 (10:00→21:00)
--- NOTE | 2017-03-11 10:14 | HHI.PR ---
Subjective Remarks The patient was teary-eyed. She said she was upset about something involving her daughter. She said she was constipated and hasn't gone for 3 days. She said she is breathing well. She denies chest pain. Discussed with nursing. Objective Vitals Vital Signs Date Time Temp Pulse Resp B/P Pulse Ox O2 Delivery O2 Flow Rate FiO2 03/11/17 08:00 98.3 89 20 164/65 94 03/11/17 04:00 97.2 80 16 140/73 92 03/11/17 00:00 97.9 80 16 150/73 96 03/10/17 20:42 98 Nasal Cannula 2.00 03/10/17 20:15 Nasal Cannula 2.00 03/10/17 20:00 98.7 74 18 137/63 98 03/10/17 19:42 73 03/10/17 18:28 03/10/17 16:00 98.7 76 20 134/63 98 03/10/17 12:00 99.0 74 20 123/66 96 I/O 03/10/17 03/10/17 03/10/17 03/11/17 03/11/17 03/11/17 07:00 15:00 23:00 07:00 15:00 23:00 Intake Total 480 ml Output Total 400 ml Balance 80 ml Intake Oral 480 ml IV Total 0 ml Output Urine Total 400 ml # Voids 4 5 # Bowel Movements 0 Result Diagram: 03/11/17 0656 03/11/17 0656 Imaging Last Impressions Chest X-Ray 03/09/17 2323 Signed Impressions: Service Date/Time: Thursday, March 09, 2017 23:24 - CONCLUSION: 1. Cardiomegaly with increased pulmonary vascularity and small pleural effusions, likely CHF. 2. Bibasilar densities. Boaz Mckeon MD Objective Remarks GENERAL: This is a well-nourished, well-developed patient, in no apparent distress. SKIN: No rashes, ecchymoses or lesions. Cool and dry. HEAD: Atraumatic. Normocephalic. No temporal or scalp tenderness. EYES: Extraocular motions intact. No scleral icterus. No injection or drainage. CARDIOVASCULAR: Regular rate and rhythm without murmurs, gallops, or rubs. RESPIRATORY: CTAB. No W/R/R. GASTROINTESTINAL: Abdomen soft, non-tender, nondistended. No hepato-splenomegaly , or palpable masses. No guarding. MUSCULOSKELETAL: Lower extremity edema has resolved. NEUROLOGICAL: Awake and alert. No focal. Motor and sensory grossly within normal limits. 4-5 out of 5 muscle strength in all muscle groups. Normal speech. PSYCH: Teary-eyed. Medications and IVs Current Medications Medications (Trade) Dose Ordered Sig/Marlon Route Start Time Stop Time Status Last Admin (NS Flush) 2 ml UNSCH PRN IV FLUSH 03/10/17 01:45 (NS Flush) 2 ml BID IV FLUSH 03/10/17 09:00 03/11/17 09:41 (Narcan Inj) 0.4 mg UNSCH PRN IV 03/10/17 01:45 (Lasix Inj) 40 mg BID@09,18 IV PUSH 03/10/17 09:00 03/11/17 09:41 (D50w (Vial) Inj) 25 ml UNSCH PRN IV PUSH 03/10/17 05:00 (Glucagon Inj) 1 mg UNSCH PRN OTHER 03/10/17 05:00 (Eliquis) 2.5 mg BID PO 03/10/17 09:00 03/11/17 09:40 (Symbicort 160-4.5 Inh) 2 puff BID INH 03/10/17 09:00 03/11/17 09:00 (Cardizem Cd) 360 mg DAILY PO 03/10/17 09:00 03/11/17 09:00 (Ferrous Sulfate) 325 mg BIDPC PO 03/10/17 09:00 03/11/17 09:40 (Synthroid) 125 mcg DAILY@0600 PO 03/10/17 06:30 03/11/17 06:08 (Prinivil) 5 mg DAILY PO 03/10/17 09:00 03/11/17 09:40 (Lopressor) 50 mg BID PO 03/10/17 09:00 03/11/17 09:40 Patient Own Medication PT OWN MED:Arformoterol Neb (Brov... BID NEB 03/10/17 09:00 Hold (Pepcid) 20 mg DAILY PO 03/10/17 09:00 03/11/17 09:40 (Ventolin Hfa Inh) 1 puff BID PRN INH 03/10/17 06:45 (Miralax) 17 gm DAILY PO 03/11/17 09:00 03/11/17 09:40 (Colace) 100 mg BID PO 03/11/17 09:00 03/11/17 09:40 (Levemir Inj) 10 units BID SQ 03/11/17 21:00 (Levemir Inj) 5 units ONCE SQ 03/11/17 10:00 03/11/17 23:59 03/11/17 09:51 A/P Problem List: (1) SOB (shortness of breath) ICD Code: R06.02 Status: Acute (2) CHF exacerbation ICD Code: I50.9 Status: Acute Assessment and Plan Acute exacerbation of chronic diastolic CHF Last in hospital echocardiogram 06/2016 showed EF of 60%. At time of admission patient was tachypneic, hypoxic with bibasilar rales, BNP 674. Appreciate cardiology consult. - d/c Lasix 40 mg IV twice a day. - start torsemide 10 mg daily per cardiology. Diabetes mellitus type 2 Glucose has been poorly controlled. - Hold oral diabetic medication at this time. - Accu-Cheks before meals and at bedtime with low-dose insulin sliding scale coverage. - increase Levemir to 10 units BID. - repeat HgbA1c. Hypertension Blood pressure relatively well controlled. - continue metoprolol, lisinopril and diltiazem. Atrial fibrillation HR relatively controlled. - continue metoprolol 50mg PO BID as well as Cardizem 360 mg by mouth daily. - Continue Eliquis. Hypokalemia S/t Lasix. - replete and monitor. Constipation Has not had a bowel movement in several days. - bowel regimen. DVT prophylaxis patient is on Eliquis Discharge Planning Anticipate d/c in 1-2 days. Problem Qualifiers (1) CHF exacerbation: Qualified Code: I50.33 - Acute on chronic diastolic congestive heart failure Steve Olivera DO Mar 11, 2017 10:14
[2017-03-11] MEDS: SENNOSIDES 8.6 MG TAB PO SCH (11:03)
--- NOTE | 2017-03-11 12:00 | PD.CARD.PN ---
Subjective Subjective Remarks Better overall fast canadian hard to understand but no cp or sob, wants to go home Objective Medications Administered Medications Medications (Trade) Dose Ordered Sig/Marlon Route PRN Reason Start Time Stop Time Status Last Admin Dose Admin Sodium Chloride (NS Flush) 2 ml BID IV FLUSH 03/10/17 09:00 03/11/17 09:41 Apixaban (Eliquis) 2.5 mg BID PO 03/10/17 09:00 03/11/17 09:40 Budesonide/ Formoterol Fumarate (Symbicort 160-4.5 Inh) 2 puff BID INH 03/10/17 09:00 03/11/17 09:00 Diltiazem HCl (Cardizem Cd) 360 mg DAILY PO 03/10/17 09:00 03/11/17 09:00 Ferrous Sulfate (Ferrous Sulfate) 325 mg BIDPC PO 03/10/17 09:00 03/11/17 09:40 Levothyroxine Sodium (Synthroid) 125 mcg DAILY@0600 PO 03/10/17 06:30 03/11/17 06:08 Lisinopril (Prinivil) 5 mg DAILY PO 03/10/17 09:00 03/11/17 09:40 Metoprolol Tartrate (Lopressor) 50 mg BID PO 03/10/17 09:00 03/11/17 09:40 Famotidine (Pepcid) 20 mg DAILY PO 03/10/17 09:00 03/11/17 09:40 Polyethylene Glycol (Miralax) 17 gm DAILY PO 03/11/17 09:00 03/11/17 09:40 Docusate Sodium (Colace) 100 mg BID PO 03/11/17 09:00 03/11/17 09:40 Insulin Detemir (Levemir Inj) 5 units ONCE SQ 03/11/17 10:00 03/11/17 23:59 03/11/17 09:51 Sennosides (Senokot) 17.2 mg DAILY PO 03/11/17 10:00 03/11/17 11:03 Vital Signs / I&O Vital Signs Date Time Temp Pulse Resp B/P Pulse Ox O2 Delivery O2 Flow Rate FiO2 03/11/17 08:00 98.3 89 20 164/65 94 03/11/17 04:00 97.2 80 16 140/73 92 03/11/17 00:00 97.9 80 16 150/73 96 03/10/17 20:42 98 Nasal Cannula 2.00 03/10/17 20:15 Nasal Cannula 2.00 03/10/17 20:00 98.7 74 18 137/63 98 03/10/17 19:42 73 03/10/17 18:28 03/10/17 16:00 98.7 76 20 134/63 98 03/10/17 12:00 99.0 74 20 123/66 96 I/O 03/10/17 03/10/17 03/10/17 03/11/17 03/11/17 03/11/17 07:00 15:00 23:00 07:00 15:00 23:00 Intake Total 480 ml Output Total 400 ml Balance 80 ml Intake Oral 480 ml IV Total 0 ml Output Urine Total 400 ml # Voids 4 5 # Bowel Movements 0 Physical Exam GENERAL: Well-nourished, well-developed patient in no apparent distress. elderly SKIN: Warm and dry. NECK: JVD normal - less than or equal to 5 cm H20. CARDIOVASCULAR: Regular rate and rhythm without murmurs, gallops or rubs. RESPIRATORY: Normal breath sounds - equal bilaterally. No accessory muscle use. No wheezes, rales or rubs. PERIPHERY: No cyanosis or edema. Laboratory Laboratory Tests Test 03/11/17 06:56 White Blood Count 9.1 TH/MM3 Red Blood Count 3.65 MIL/MM3 Hemoglobin 10.3 GM/DL Hematocrit 29.8 % Mean Corpuscular Volume 81.7 FL Mean Corpuscular Hemoglobin 28.1 PG Mean Corpuscular Hemoglobin 34.5 % Concent Red Cell Distribution Width 16.0 % Platelet Count 88 TH/MM3 Mean Platelet Volume 9.8 FL Sodium Level 134 MEQ/L Potassium Level 2.9 MEQ/L Chloride Level 97 MEQ/L Carbon Dioxide Level 29.3 MEQ/L Anion Gap 8 MEQ/L Blood Urea Nitrogen 21 MG/DL Creatinine 1.20 MG/DL Estimat Glomerular Filtration 43 ML/MIN Rate Random Glucose 319 MG/DL Calcium Level 8.6 MG/DL Magnesium Level 1.6 MG/DL Assessment and Plan Assessment and Plan Doing better OK to d/c when stable will see PRN. Chuck Day MD Mar 11, 2017 12:00
[2017-03-11] MEDS ORDERED: INSULIN ASPART 1,000 UNITS/10 ML VIAL SQ ONE (15:45)
[2017-03-11 16:54] LABS: ANION GAP 7 MEQ/L (5-15); BICARBONATE 32.1 MEQ/L (21.0-32.0); BLOOD UREA NITROGEN 22 MG/DL (7-18); CHLORIDE 98 MEQ/L (98-107); GLOMERULAR FILTRATION RATE 38 ML/MIN (>89); POTASSIUM 3.9 MEQ/L (3.5-5.1); SODIUM (NA) 137 MEQ/L (136-145)
[2017-03-11] MEDS ORDERED: INSULIN ASPART 1,000 UNITS/10 ML VIAL SQ SCH (17:00)
[2017-03-11 17:07] LABS: HEMOGLOBIN A1a 0.7 %; HEMOGLOBIN A1b 2.1 %; HEMOGLOBIN Ao 81.7 %; HEMOGLOBIN LA1C 3.1 %; HEMOGLOBIN P3 6.5 %
[2017-03-12] VITALS: BP 144/70; PULSE 63; RESP 14; TEMP 97; O2SAT 98
[2017-03-12 04:00] VITALS: BP 156/71; PULSE 68; RESP 16; TEMP 97.4; O2SAT 96
[2017-03-12] MEDS: LEVOTHYROXINE SODIUM 125 MCG TAB PO SCH (05:29)
[2017-03-12] MEDS: INSULIN ASPART SUPPLEMENTAL SCALE SQ SCH ×2 (06:15→11:00)
[2017-03-12 08:00] VITALS: BP 165/79; PULSE 72; PULSE 78; RESP 18; TEMP 98.6; O2SAT 97
[2017-03-12 08:47] VITALS: O2SAT 97
[2017-03-12] MEDS: LEVALBUTEROL HYDROCHLORIDE NEB ×2 (08:47→12:43)
[2017-03-12] MEDS: DILTIAZEM-CD 180 MG CAP ER PO SCH (09:00)
[2017-03-12] MEDS ORDERED: TORSEMIDE 5 MG TAB PO SCH (09:00)
[2017-03-12] MEDS ORDERED: INSULIN DETEMIR 100 UNITS/ML VIAL SQ SCH (09:00)
[2017-03-12] MEDS: BUDESONIDE-FORMOTEROL 160/4.5 MCG INHALER INH SCH (09:00)
[2017-03-12] MEDS: FAMOTIDINE 20 MG TAB PO SCH (09:14)
[2017-03-12] MEDS: APIXABAN 2.5 MG TABLET PO SCH (09:14)
[2017-03-12] MEDS: METOPROLOL TARTRATE 50 MG TAB PO SCH (09:14)
[2017-03-12] MEDS: FERROUS SULFATE 325 MG (65 MG ELEMENTAL IRON) TAB PO SCH (09:14)
[2017-03-12] MEDS: LISINOPRIL 5 MG TAB PO SCH (09:14)
[2017-03-12 09:15] LABS: MEAN CELL VOLUME 82.3 FL (80.0-100.0); MEAN CORPUSCULAR HEMOGLOBIN 28.2 PG (27.0-34.0); MEAN CORPUSCULAR HGB CONC 34.2 % (32.0-36.0); PLATELET COUNT 117 TH/MM3 (150-450); RED BLOOD COUNT 4.01 MIL/MM3 (4.00-5.30); RED CELL DISTRIBUTION WIDTH 16.3 % (11.6-17.2); REVIEW FLAG FINAL
[2017-03-12] MEDS: DOCUSATE SODIUM 100 MG CAP PO SCH (09:15)
[2017-03-12] MEDS: SENNOSIDES 8.6 MG TAB PO SCH (09:15)
[2017-03-12] MEDS: POLYETHYLENE GLYCOL 17 GM PKG PO SCH (09:15)
[2017-03-12 09:40] LABS: BICARBONATE 33.4 MEQ/L (21.0-32.0); MAGNESIUM 1.9 MG/DL (1.5-2.5); POTASSIUM 3.8 MEQ/L (3.5-5.1)
[2017-03-12] MEDS ORDERED: DOCU1CAP39 PO (09:47)
[2017-03-12] MEDS ORDERED: SENN8.6T15 PO (09:47)
[2017-03-12] MEDS ORDERED: POTA10TA2 PO (09:47)
[2017-03-12] MEDS ORDERED: TORS5TAB2 PO (09:47)
--- NOTE | 2017-03-12 09:48 | HHI.DCPOC ---
Discharge Care Plan Diagnosis: (1) Hypertension (2) DM (diabetes mellitus) (3) CHF exacerbation (4) SOB (shortness of breath) Goals to Promote Your Health * To prevent worsening of your condition and complications * To maintain your health at the optimal level Directions to Meet Your Goals Take your medications as prescribed Follow your dietary instruction Follow activity as directed Keep your appointments as scheduled Take your immunizations and boosters as scheduled If your symptoms worsen call your PCP, if no PCP go to Urgent Care Center or Emergency Room Smoking is Dangerous to Your Health. Avoid second hand smoke Call the 24-hour hour crisis hotline for domestic abuse at Steve Olivera DO Mar 12, 2017 09:48
--- NOTE | 2017-03-12 09:50 | HHI.DS ---
Discharge Summary Admission Date Mar 10, 2017 at 01:39 Discharge Date: Mar 12, 2017 Admitting Diagnosis CHF, hypoxia, dyspnea (1) SOB (shortness of breath) ICD Code: R06.02 (2) CHF exacerbation ICD Code: I50.9 Diagnosis: Principal (3) Hypertension ICD Code: I10 (4) DM (diabetes mellitus) ICD Code: E11.9 Procedures None. Brief History - From Admission This is a 82 year old Divehi speaking female patient with a past medical history which includes: Diastolic CHF Echocardiogram 06/2016 showed EF of 60%, Atrial fibrillation on Eliquis, CAD with cardiac stent x2, HTN, DM, hepatitis C with cirrhosis, asthma, hypothyroid. Patient seen with daughter present for translation. Patient reports that she came to the ER because, "I couldn't breath." Patient reports SOB x 1 day with BLE edema. Patient was recently seen by her tool engineer Lasix 20 mg was changed to torsemide 5 mg daily. Patient also complains that she is Constipated with firm stool last BM 2 days ago at that time patient had One episode of bright red blood on tissue after having BM. Denies cough, fever, vomiting blood, blood in urine At time of admission patient was tachypneic, hypoxic with bibasilar rales, BNP 674. Patient was given 40 mg IV Lasix in ER at this time patient reports feeling much better. CBC/BMP: 03/12/17 0857 03/12/17 0857 Significant Findings Laboratory Tests Test 03/09/17 03/09/17 03/10/17 03/10/17 23:42 23:45 01:00 11:43 Blood Gas HCO3 28 mmol/L (22-26) Blood Gas Base Excess 3.7 mmol/L (-2-2) Arterial Blood pH 7.44 (7.380-7.420) Blood Gas Hemoglobin 10.3 G/DL (12.0-16.0) Hemoglobin 11.2 GM/DL (11.6-15.3) Hematocrit 33.1 % (35.0-46.0) Platelet Count 114 TH/MM3 (150-450) Monocytes (%) (Auto) 11.5 % (0.0-8.0) Monocytes # (Auto) 1.2 TH/MM3 (0-0.9) Sodium Level 135 MEQ/L (136-145) Creatinine 1.23 MG/DL 1.33 MG/DL (0.50-1.00) (0.50-1.00) Estimat Glomerular Filtration 42 ML/MIN (>89) 38 ML/MIN (>89) Rate Random Glucose 371 MG/DL 396 MG/DL (74-106) (74-106) Calcium Level 8.1 MG/DL (8.5-10.1) Total Bilirubin 1.1 MG/DL (0.2-1.0) Troponin I LESS THAN 0.02 NG/ML (0.02-0.05) B-Type Natriuretic Peptide 674 PG/ML (0-100) Total Protein 8.4 GM/DL (6.4-8.2) Albumin 3.3 GM/DL (3.4-5.0) Prothrombin Time 13.4 SEC (9.8-11.6) Activated Partial 30.9 SEC Thromboplast Time (24.3-30.1) Chloride Level 96 MEQ/L (98-107) Test 03/11/17 03/11/17 03/12/17 06:56 15:54 08:57 Red Blood Count 3.65 MIL/MM3 (4.00-5.30) Hemoglobin 10.3 GM/DL 11.3 GM/DL (11.6-15.3) (11.6-15.3) Hematocrit 29.8 % 33.0 % (35.0-46.0) (35.0-46.0) Platelet Count 88 TH/MM3 117 TH/MM3 (150-450) (150-450) Sodium Level 134 MEQ/L (136-145) Potassium Level 2.9 MEQ/L (3.5-5.1) Chloride Level 97 MEQ/L (98-107) Blood Urea Nitrogen 21 MG/DL (7-18) 22 MG/DL (7-18) 21 MG/DL (7-18) Creatinine 1.20 MG/DL 1.34 MG/DL (0.50-1.00) (0.50-1.00) Estimat Glomerular Filtration 43 ML/MIN (>89) 38 ML/MIN (>89) 55 ML/MIN (>89) Rate Random Glucose 319 MG/DL 242 MG/DL (74-106) (74-106) Carbon Dioxide Level 32.1 MEQ/L 33.4 MEQ/L (21.0-32.0) (21.0-32.0) Hemoglobin A1c 7.2 % (4.3-6.0) Anion Gap 3 MEQ/L (5-15) Imaging Last Impressions Chest X-Ray 03/09/17 6118 Signed Impressions: Service Date/Time: Tuesday, March 09, 2017 23:24 - CONCLUSION: 1. Cardiomegaly with increased pulmonary vascularity and small pleural effusions, likely CHF. 2. Bibasilar densities. Boaz Mckeon MD PE at Discharge GENERAL: This is a well-nourished, well-developed patient, in no apparent distress. SKIN: No rashes, ecchymoses or lesions. Cool and dry. HEAD: Atraumatic. Normocephalic. No temporal or scalp tenderness. EYES: Extraocular motions intact. No scleral icterus. No injection or drainage. CARDIOVASCULAR: Regular rate and rhythm without murmurs, gallops, or rubs. RESPIRATORY: CTAB. No W/R/R. GASTROINTESTINAL: Abdomen soft, non-tender, nondistended. No hepato-splenomegaly , or palpable masses. No guarding. MUSCULOSKELETAL: Lower extremity edema has resolved. NEUROLOGICAL: Awake and alert. No focal. Motor and sensory grossly within normal limits. 4-5 out of 5 muscle strength in all muscle groups. Normal speech. PSYCH: Teary-eyed. Pt update on day of discharge The patient was resting comfortably in bed. She said that she never had any pain. She said that she has oxygen at home. She says she checks her blood sugar at home. She had a small bowel movement yesterday. She is looking forward to going home but was worried because she has been to the hospital several times recently. Hospital Course Acute exacerbation of chronic diastolic CHF Last in hospital echocardiogram 06/2016 showed EF of 60%. At time of admission patient was tachypneic, hypoxic with bibasilar rales, BNP was 674. She was started on Lasix 40 mg IV BID. Cardiology was consulted. She worked with physical therapy. Her diuretics were changed to torsemide 10 mg PO daily per cardiology. She had hypokalemia associated with diuresis which was corrected. She will continue potassium supplementation upon discharge. She will have a BMP checked in 3-5 days. She will follow up with her tool engineer. She was told to avoid salt, restrict her water intake and to take daily weights. Diabetes mellitus type 2 Glucose has been poorly controlled. We held her oral diabetic medication and started Levemir BID along with prandial insulin. Her A1c was 7.2%. She will resume her home medication upon discharge. Constipation Has not had a bowel movement in several days. She was started on a bowel regimen with good results. She will continue Colace and Senna upon discharge. Pt Condition on Discharge: Stable Discharge Disposition: Discharge Home Discharge Time: > 30 minutes Discharge Instructions DIET: Follow Instructions for: Heart Healthy Diet, Diabetic Diet Additional Diet Instructions: 1.5 L Fluid restriction No salt Activities you can perform: Weight Bearing as Francois Follow up Referrals: Cardiology - [address] Day PCP Follow-up - 1 Week New Orders: BASIC METABOLIC PROF - 3-5 Days New Medications: Docusate Sodium (Dok) 100 Mg Cap 100 MG PO BID Constipation #60 CAP Sennosides (Senna Lax) 8.6 Mg Tab 17.2 MG PO DAILY Constipation #30 TAB Torsemide (Torsemide) 5 Mg Tab 10 MG PO DAILY Heart failure #60 TAB Changed Medications: Potassium Chloride ER (Potassium Chloride ER) 10 Meq Tab 20 MEQ PO DAILY Electrolyte Replacement #30 Ref 0 TAB (Changed from: 10 MEQ) Continued Medications: Albuterol 8.5 GM Inh (Proair Hfa 8.5 GM Inh) 90 Mcg/Act Aer 1 PUFF INH BID 108 mcg/actuation PRN SHORTNESS OF BREATH #1 Ref 0 INHALER Alendronate (Alendronate) 70 Mg Tab 70 MG PO Q7D Osteporosis Treatment #4 Ref 0 TAB Apixaban (Eliquis) 2.5 Mg Tab 2.5 MG PO BID Blood Clot Prevention Ref 0 TAB Arformoterol Neb (Brovana Neb) 15 Mcg/2 Ml Vial 1 NEBULE NEB BID Maintenance treatment of bronchoconstriction in COPD. Broncospasm #60 NEBULE Budesonide-Formoterol Inh (Symbicort Inh) 160-4.5 Mcg/Act Aero 2 PUFF INH BID #1 Ref 0 INHALER Diltiazem CD 24 HR (Cardizem CD 24 HR) 180 Mg Caper 360 MG PO DAILY a-fib Days 30 Ref 0 CAP Ferrous Sulfate (Iron) 325 Mg Tab 325 MG PO BIDPC Take after a meal. Nutritional Supplement Ref 0 TAB Glimepiride (Glimepiride) 4 Mg Tab 4 MG PO BIDAC Blood Sugar Management #60 Ref 0 TAB Levalbuterol Neb (Xopenex Neb) 0.31 Mg/3 Ml Neb 0.31 MG NEB QID Breathing Treatment #120 Ref 0 NEBULE Levothyroxine (Levothyroxine) 125 Mcg Tab 125 MCG PO DAILY Thyroid #30 Ref 0 TAB Lisinopril (Lisinopril) 5 Mg Tab 5 MG PO DAILY Blood Pressure Management #30 Ref 0 TAB Metoprolol Tartrate (Lopressor) 50 Mg Tab 50 MG PO BID TACHYCARDIA #60 Ref 1 TAB Nystatin Liq (Nystatin Liq) 100,000 unit/ml Susp 5 ML SWISH-SWAL QID Infection Ref 0 ML Ranitidine (Zantac) 150 Mg Tab 150 MG PO DAILY Reduce Stomach Acid #30 Ref 0 TAB Discontinued Medications: Torsemide (Torsemide) 5 Mg Tab 5 MG PO DAILY diuretic Days 30 Ref 0 TAB Steve Olivera DO Mar 12, 2017 09:50
[2017-03-12 12:00] VITALS: BP 174/80; PULSE 64; RESP 18; TEMP 98.2; O2SAT 96
== END 2017-03-12 15:59 | disposition home or self-care (01) | DRG 293 ==
LOC: NEPC 23:04 → NEDA 03-10 01:39 → N04B 03-10 03:21
PROVIDERS: ADMIT Hospitalist; ATTEND Hospitalist
DX: I50.33 Acute on chronic diastolic (congestive) heart failure (principal); K74.60 Unspecified cirrhosis of liver; I48.91 Unspecified atrial fibrillation; J44.9 Chronic obstructive pulmonary disease, unspecified; I25.2 Old myocardial infarction; I25.10 Atherosclerotic heart disease of native coronary artery without angina pectoris; R09.02 Hypoxemia; J45.909 Unspecified asthma, uncomplicated; K21.9 Gastro-esophageal reflux disease without esophagitis; E11.9 Type 2 diabetes mellitus without complications; B19.20 Unspecified viral hepatitis C without hepatic coma; M81.0 Age-related osteoporosis without current pathological fracture; M19.90 Unspecified osteoarthritis, unspecified site; Z95.5 Presence of coronary angioplasty implant and graft; Z95.0 Presence of cardiac pacemaker; Z88.0 Allergy status to penicillin; I10 Essential (primary) hypertension; Z79.02 Long term (current) use of antithrombotics/antiplatelets; E03.9 Hypothyroidism, unspecified; R09.89 Other specified symptoms and signs involving the circulatory and respiratory systems; R06.82 Tachypnea, not elsewhere classified; Z80.3 Family history of malignant neoplasm of breast; K59.00 Constipation, unspecified; E87.6 Hypokalemia
CPT/HCPCS: 36600; 71010; 80048; 80053; 82550; 82805; 82948; 83036; 83735; 83880; 84484; 85025; 85027; 85610; 85730; 93005; 94640; 94664; 96374; 96375; J1815; J1940; J2930; J3475; J7614

== ENCOUNTER 2017-04-28 22:20 | Inpatient (IN) | payer MEDICARE, MEDICAID ==
[~2017-04-28] VITALS: Ht 152.4 cm; Wt 52.5 kg
[~2017-04-28 22:20] MED LIST changes: +ALBUAER3 INH; +ALEN1TAB48 PO; +DOCU1CAP39 PO; +FERR1TAB36 PO; -LEVA750T PO; -LISI-515 PO; +LISI-519 PO; +NYST1000 SWISH-SWAL; -REGL5TAB PO; +SENN8.6T15 PO
[2017-04-28 22:25] VITALS: BP 141/94; PULSE 130; RESP 18; TEMP 98.7; O2SAT 93
[2017-04-28] MEDS ORDERED: SODIUM CHLORIDE 0.9% FLUSH 10 ML FLUSH IVF PRN (22:45)
[2017-04-28] MEDS ORDERED: DILTIAZEM INJ 125 MG in SODIUM CHLORIDE 0.9% INJ 100 ML IV PRN (23:00)
[2017-04-28] MEDS ORDERED: FUROSEMIDE 100 MG/10 ML VIAL IV PUSH ONE (23:00)
[2017-04-28] MEDS ORDERED: DILTIAZEM HCL 25 MG/5 ML VIAL IV PUSH ONE (23:00)
--- NOTE | 2017-04-28 23:02 | RADRPT ---
EXAM DATE/TIME: 04/28/2017 22:47 [facility] COMPARISON: CHEST SINGLE AP, March 09, 2017, 23:24. INDICATIONS : Shortness of breath. MEDICAL HISTORY : Congestive heart failure. Cardiovascular disease. Diabetes mellitus type II. Osteoporosis. SURGICAL HISTORY : Pacemaker. Cholecystectomy. Hysterectomy. Heart stents. ENCOUNTER: Initial ACUITY: 1 day PAIN SCORE: 0/10 LOCATION: Bilateral chest FINDINGS: The cardiac silhouette is enlarged in transverse diameter. A bipolar pacemaker is in place via a left sided approach. There is prominence of the aortic knob is with calcification characteristic of ather osclerotic vascular disease. There are findings of congestive heart failure with interstitial and donato eolar opacity bilaterally. Small bilateral pleural effusions are identified. CONCLUSION: 1. Cardiomegaly and findings of congestive heart failure. 2. Small bilateral effusions Gulshan Crowley MD on April 28, 2017 at 23:00 Board Certified Radiologist. This report was verified electronically.
[2017-04-28 23:23] VITALS: BP 126/79; PULSE 107; RESP 20; O2SAT 96
[2017-04-28 23:24] LABS: AUTOMATED NEUTROPHIL # 4.4 TH/MM3 (1.8-7.7); BASOPHIL % 0.4 % (0.0-2.0); EOSINOPHIL # 0.1 TH/MM3 (0-0.4); EOSINOPHIL % 1.3 % (0.0-4.0); HEMATOCRIT 31.5 % (35.0-46.0); HEMO FLAGS DIFF FINAL; LYMPHOCYTE # 1.6 TH/MM3 (1.0-4.8); MEAN CELL VOLUME 85.5 FL (80.0-100.0); MEAN CORPUSCULAR HEMOGLOBIN 29.2 PG (27.0-34.0); MEAN CORPUSCULAR HGB CONC 34.2 % (32.0-36.0); MONO % 14.3 % (0.0-8.0); PLATELET COUNT 109 TH/MM3 (150-450); RED BLOOD COUNT 3.69 MIL/MM3 (4.00-5.30); RED CELL DISTRIBUTION WIDTH 16.4 % (11.6-17.2); WHITE BLOOD COUNT 7.1 TH/MM3 (4.0-11.0)
[2017-04-28] MEDS ORDERED: DILTIAZEM HCL 50 MG/10 ML VIAL IV PUSH ONE (23:30)
[2017-04-28 23:38] VITALS: BP 144/85; PULSE 94; RESP 18; O2SAT 93
[2017-04-28 23:42] LABS: ALT (GPT) 36 U/L (10-53); ANION GAP 9 MEQ/L (5-15); AST (GOT) 45 U/L (15-37); BLOOD UREA NITROGEN 18 MG/DL (7-18); CHLORIDE 100 MEQ/L (98-107); GLOMERULAR FILTRATION RATE 32 ML/MIN (>89); POTASSIUM 3.8 MEQ/L (3.5-5.1); SODIUM (NA) 137 MEQ/L (136-145)
[2017-04-28 23:47] LABS: ALKALINE PHOSPHATASE 80 U/L (45-117); TOTAL BILIRUBIN ADULT 0.8 MG/DL (0.2-1.0)
[2017-04-28 23:54] VITALS: BP 163/76; PULSE 109; RESP 18; O2SAT 97
[2017-04-28 23:54] LABS: CREATINE KINASE 73 U/L (26-192)
[2017-04-29] VITALS (24 sets, daily range): BP systolic 119–164; BP diastolic 64–96; PULSE 64–114; RESP 16–20; TEMP 98.1–98.9; O2SAT 96–100
--- NOTE | 2017-04-29 00:28 | PD ---
HPI . Shortness of breath Chief Complaint: Respiratory Symptoms Time Seen by Provider: 22:33 Travel History International Travel<30 days: No Contact w/Intl Traveler<30days: No Traveled to known affect area: No History of Present Illness HPI This is a Greek-speaking patient. History was obtained from her daughter. The patient is lucid and was able to confirm her history. Patient presents complaining with shortness of breath. Onset of symptoms was about 2 days. It has been getting progressively worse. She has 3 pillow orthopnea. Shortness of breath is exacerbated by laying flat. The daughter has not noted any relieving symptoms. She has not had any chest pain. She has had a cough productive of white sputum. She has also developed increased peripheral edema. Her daughter states that she was admitted recently with very similar symptoms and that it was due to congestive heart failure. The daughter reports that her current diuretic is torsemide 10 mg daily. PFSH Past Medical History Hx Anticoagulant Therapy: Yes Arthritis: Yes (osteoporosis) Asthma: Yes Blood Disorders: No Anxiety: No Depression: No Heart Rhythm Problems: Yes Cancer: No Cardiac Catheterization: Yes (10-01-09) Cardiovascular Problems: Yes High Cholesterol: No Chemotherapy: No Chest Pain: No Congestive Heart Failure: Yes Cirrhosis: Yes COPD: No Diabetes: Yes (Type 2 ) Patient Takes Glucophage: No Diminished Hearing: No Endocrine: Yes (hypothyroidism) Gastrointestinal Disorders: Yes GERD: Yes Genitourinary: No Headaches: No Hepatitis: Yes (hep c) Hiatal Hernia: No Hypertension: Yes Immune Disorder: No Implanted Vascular Access Dvce: Yes Kidney Stones: No Musculoskeletal: No Neurologic: No Psychiatric: No Reproductive: No Respiratory: Yes (ASTHMA) Migraines: No Myocardial Infarction: Yes Radiation Therapy: No Renal Failure: No Sickle Cell Disease: No Sleep Apnea: No Thyroid Disease: Yes Ulcer: No Tetanus Vaccination: Unknown Influenza Vaccination: No ?: Not Menopausal: Yes : 5 Para: 4 Miscarriage: 1 Past Surgical History Abdominal Surgery: Yes (cholecystectomy ) AICD: No Appendectomy: No Arteriovenous Shunt: No Body Medical Devices: PACEMAKER AND STENTS Cardiac Surgery: Yes (PACEMAKER) Cholecystectomy: Yes Coronary Stent: Yes (x2) Ear Surgery: Yes Endocrine Surgery: No Eye Surgery: No Genitourinary Surgery: No Gynecologic Surgery: Yes (hysterectomy ) Hysterectomy: Yes Insulin Pump: No Joint Replacement: No Oral Surgery: No Pacemaker: Yes (biotronik Evia DR-T [id number] 04/30/2013) Thoracic Surgery: No Other Surgery: Yes (STENTS PLACED) Social History Alcohol Use: No Tobacco Use: No Substance Use: No Allergies-Medications (Allergen,Severity, Reaction): Coded Allergies: Penicillin (Verified Allergy, Severe, Anaphylaxis, 03/09/17) Reported Meds & Prescriptions Reported Meds & Active Scripts Active Torsemide 5 Mg Tab 10 Mg PO DAILY Senna Lax (Sennosides) 8.6 Mg Tab 17.2 Mg PO DAILY Dok (Docusate Sodium) 100 Mg Cap 100 Mg PO BID Potassium Chloride ER (Potassium Chloride) 10 Meq Tab 20 Meq PO DAILY Cardizem CD 24 HR (Diltiazem CD 24 HR) 180 Mg Caper 360 Mg PO DAILY 30 Days Lopressor (Metoprolol Tartrate) 50 Mg Tab 50 Mg PO BID Reported Iron (Ferrous Sulfate) 325 Mg Tab 325 Mg PO BIDPC Take after a meal. Lisinopril 5 Mg Tab 5 Mg PO DAILY Alendronate (Alendronate Sodium) 70 Mg Tab 70 Mg PO Q7D Nystatin Liq 100,000 unit/ml Susp 5 Ml SWISH-SWAL QID Proair Hfa 8.5 GM Inh (Albuterol Sulfate) 90 Mcg/Act Aer 1 Puff INH BID PRN 108 mcg/actuation Eliquis (Apixaban) 2.5 Mg Tab 2.5 Mg PO BID Glimepiride 4 Mg Tab 4 Mg PO BIDAC Zantac (Ranitidine HCl) 150 Mg Tab 150 Mg PO DAILY Brovana Neb (Arformoterol Neb) 15 Mcg/2 Ml Vial 1 Nebule NEB BID Maintenance treatment of bronchoconstriction in COPD. Levothyroxine (Levothyroxine Sodium) 125 Mcg Tab 125 Mcg PO DAILY Xopenex Neb (Levalbuterol HCl) 0.31 Mg/3 Ml Neb 0.31 Mg NEB QID Symbicort Inh (Budesonide/Formoterol Fumarate) 160-4.5 Mcg/Act Aero 2 Puff INH BID Review of Systems Except as stated in HPI: all other systems reviewed are Neg General / Constitutional: Positive: Weight Gain, No: Fever, Chills Cardiovascular: No: Chest Pain or Discomfort Respiratory: Positive: Cough, Shortness of Breath Musculoskeletal: Positive: Edema Physical Exam Narrative GENERAL: Patient is awake and alert. She is in no acute distress. SKIN: Warm and dry. HEAD: Atraumatic. Normocephalic. EYES: Pupils equal and round. Extraocular movements are intact. ENT: No nasal bleeding or discharge. Mucous membranes pink and moist. NECK: Trachea midline. Neck is supple. CARDIOVASCULAR: She has an irregularly irregular rhythm. Rapid rate at about 1: 30. RESPIRATORY: No accessory muscle use. Mild basilar rales. GASTROINTESTINAL: Abdomen soft, non-tender, nondistended. MUSCULOSKELETAL: No obvious deformities. 2+ pretibial pitting edema. NEUROLOGICAL: Awake and alert. No obvious cranial nerve deficits. Motor grossly within normal limits. Normal speech. PSYCHIATRIC: Appropriate mood and affect; insight and judgment normal. Data Data Last Documented VS Vital Signs Date Time Temp Pulse Resp B/P Pulse Ox O2 Delivery O2 Flow Rate FiO2 04/28/17 23:54 109 18 163/76 97 Nasal Cannula 2 04/28/17 22:25 98.7 Orders Complete Blood Count With Diff (04/28/17 22:34) Comprehensive Metabolic Panel (04/28/17 22:34) B-Type Natriuretic Peptide (04/28/17 22:34) Ckmb (Isoenzyme) Profile (04/28/17 22:34) Troponin I (04/28/17 22:34) Iv Access Insert/Monitor (04/28/17 22:34) Electrocardiogram (04/28/17 22:34) Ecg Monitoring (04/28/17 22:34) Oximetry (04/28/17 22:34) Oxygen Administration (04/28/17 22:34) Chest, Single Ap (04/28/17 22:34) Sodium Chloride 0.9% Flush (Ns Flush) (04/28/17 22:45) Diltiazem Inj (Cardizem Inj) (04/28/17 23:00) Diltiazem Inj (Cardizem Inj) (04/28/17 23:00) Diltiazem Inj (Cardizem Inj) (04/28/17 23:30) Furosemide Inj (Lasix Inj) (04/28/17 23:00) Labs Laboratory Tests Test 04/28/17 23:05 White Blood Count 7.1 TH/MM3 Red Blood Count 3.69 MIL/MM3 Hemoglobin 10.8 GM/DL Hematocrit 31.5 % Mean Corpuscular Volume 85.5 FL Mean Corpuscular Hemoglobin 29.2 PG Mean Corpuscular Hemoglobin 34.2 % Concent Red Cell Distribution Width 16.4 % Platelet Count 109 TH/MM3 Mean Platelet Volume 10.2 FL Neutrophils (%) (Auto) 62.0 % Lymphocytes (%) (Auto) 22.0 % Monocytes (%) (Auto) 14.3 % Eosinophils (%) (Auto) 1.3 % Basophils (%) (Auto) 0.4 % Neutrophils # (Auto) 4.4 TH/MM3 Lymphocytes # (Auto) 1.6 TH/MM3 Monocytes # (Auto) 1.0 TH/MM3 Eosinophils # (Auto) 0.1 TH/MM3 Basophils # (Auto) 0.0 TH/MM3 CBC Comment DIFF FINAL Differential Comment Sodium Level 137 MEQ/L Potassium Level 3.8 MEQ/L Chloride Level 100 MEQ/L Carbon Dioxide Level 28.0 MEQ/L Anion Gap 9 MEQ/L Blood Urea Nitrogen 18 MG/DL Creatinine 1.54 MG/DL Estimat Glomerular Filtration 32 ML/MIN Rate Random Glucose 173 MG/DL Calcium Level 8.4 MG/DL Total Bilirubin 0.8 MG/DL Aspartate Amino Transf 45 U/L (AST/SGOT) Alanine Aminotransferase 36 U/L (ALT/SGPT) Alkaline Phosphatase 80 U/L Total Creatine Kinase 73 U/L Troponin I 0.03 NG/ML B-Type Natriuretic Peptide 763 PG/ML Total Protein 8.4 GM/DL Albumin 3.3 GM/DL [facility] Medical Decision Making Medical Screen Exam Complete: Yes Emergency Medical Condition: Yes Medical Record Reviewed: Yes (patient was admitted for// for same. She was diuresed and discharged home.) Interpretation(s) EKG shows atrial fibrillation with a rate of 130. Differential Diagnosis Differential diagnosis of dyspnea includes but is not limited to congestive heart failure, pneumonia, wheezing, pneumothorax, pulmonary embolism Narrative Course Patient presents complaining with increasing dyspnea. She has a history of CHF and asthma. Her exam is most compatible with CHF. Last Impressions Chest X-Ray 04/28/17 [id number] Signed Impressions: Service Date/Time: , April 28, 2017 22:47 - CONCLUSION: 1. Cardiomegaly and findings of congestive heart failure. 2. Small bilateral effusions Gulshan Crowley MD The chest x-ray was independently viewed by me. CBC & BMP Diagram 04/28/17 23:05 BNP is 763. Cardiac enzymes are negative. Diagnosis Primary Impression: CHF (congestive heart failure) Qualified Code: I50.33 - Acute on chronic diastolic congestive heart failure Admitting Information Admitting Physician Requests: Admit Condition: Stable Dinah Castano MD Apr 29, 2017 00:28
[2017-04-29] MEDS ORDERED: NALOXONE HCL 0.4 MG/ML AMP IV PRN (01:00)
[2017-04-29] MEDS ORDERED: SODIUM CHLORIDE 0.9% FLUSH 10 ML FLUSH IV FLUSH PRN (01:00)
[2017-04-29] MEDS ORDERED: SYMB160A INH (01:35)
[2017-04-29] MEDS ORDERED: BROV15NE NEB (01:36)
--- NOTE | 2017-04-29 04:01 | HHI.HP ---
[facility] Milly Chicas M.D. Admission Diagnosis CHF Diagnoses: Chief Complaint: Shortness of breath Travel History International Travel<30 Days: No Contact w/Intl Traveler <30 Da: No Traveled to Known Affected Are: No History of Present Illness History from patient with retail merchandising manager at the bedside. Patient is known to me from her prior hospitalization. She is extremely poor historian even with the structurer. She goes into mostly talking about her family still reads and her favorite granddaughter. She is afraid that she will not be able to go back to [place] to visit her granddaughter for her graduation. When asked about why she came to hospital, she reports that she has been short of breath and getting swollen in her lower extremities. Also reports of associated chest tightness. Denies any radiation. Denies any nausea or palpitations. Denies any cough or fever. She states that she is's have been short of breath. She states this happens on and off again and again and she knows that this is because of her heart. She states however that her chest tightness was resolved after she drank raheel anel. She thinks that this chest tightness is what is making her not able to breathe. She reports her daughter always go crazy with her symptoms and bring her to hospital. Again, it is quite difficult to get history from patient since she does not really answer the question directly and would rather talk about other stories. Review of Systems ROS Limitations: Poor Historian Except as stated in HPI: all other systems reviewed are Neg Past Family Social History Past Medical History Hypertension Diabetes Hyperlipidemia CHF CADstatus post cardiac stents 2 Atrial fibrillation Chronic anticoagulation- eliquis Hepatitis C with cirrhosis Asthma Hypothyroidism CHF Atrial fibrillation on Eliquis, CAD with cardiac stent x2, HTN, DM, hepatitis C with cirrhosis, asthma, hypothyroid Past Surgical History cholecystectomy hysterectomy pacemaker implantation Allergies: Coded Allergies: Penicillin (Verified Allergy, Severe, Anaphylaxis, 03/09/17) Family History sister had breast ca daughter ovarian ca Social History denies tobacco use now or in the past denies ETOH use denies illicit drug use Physical Exam Vital Signs Vital Signs Date Time Temp Pulse Resp B/P Pulse Ox O2 Delivery O2 Flow Rate FiO2 04/29/17 01:40 99 18 134/87 96 2 04/29/17 00:40 93 18 164/83 98 Nasal Cannula 2 04/28/17 23:54 109 18 163/76 97 Nasal Cannula 2 04/28/17 23:38 94 18 144/85 93 Nasal Cannula 2 04/28/17 23:23 107 20 126/79 96 Nasal Cannula 04/28/17 22:47 98 Nasal Cannula 2 04/28/17 22:37 Room Air 04/28/17 22:25 98.7 130 18 141/94 93 Room Air Physical Exam GENERAL: This is a well-nourished, well-developed patient, in no apparent distress. SKIN: No rashes, ecchymoses or lesions. Cool and dry. HEAD: Atraumatic. Normocephalic. No temporal or scalp tenderness. EYES: No scleral icterus. No injection or drainage. ENT: Nose without bleeding, purulent drainage or septal hematoma. Airway patent. NECK: Trachea midline. No JVD Supple, nontender, no meningeal signs. CARDIOVASCULAR: Regular rate and rhythm without murmurs, gallops, or rubs. RESPIRATORY: bilateral basilar rales up to mid lungs GASTROINTESTINAL: Abdomen soft, non-tender, nondistended.No guarding. MUSCULOSKELETAL: Extremities without clubbing, cyanosis. No calf tenderness. 3+ pitting edema up to mid [place] NEUROLOGICAL: Awake and alert. Motor and sensory grossly within normal limits. Normal speech. Laboratory Laboratory Tests Test 04/28/17 23:05 White Blood Count 7.1 Red Blood Count 3.69 Hemoglobin 10.8 Hematocrit 31.5 Mean Corpuscular Volume 85.5 Mean Corpuscular Hemoglobin 29.2 Mean Corpuscular Hemoglobin 34.2 Concent Red Cell Distribution Width 16.4 Platelet Count 109 Mean Platelet Volume 10.2 Neutrophils (%) (Auto) 62.0 Lymphocytes (%) (Auto) 22.0 Monocytes (%) (Auto) 14.3 Eosinophils (%) (Auto) 1.3 Basophils (%) (Auto) 0.4 Neutrophils # (Auto) 4.4 Lymphocytes # (Auto) 1.6 Monocytes # (Auto) 1.0 Eosinophils # (Auto) 0.1 Basophils # (Auto) 0.0 CBC Comment DIFF FINAL Differential Comment Sodium Level 137 Potassium Level 3.8 Chloride Level 100 Carbon Dioxide Level 28.0 Anion Gap 9 Blood Urea Nitrogen 18 Creatinine 1.54 Estimat Glomerular Filtration 32 Rate Random Glucose 173 Calcium Level 8.4 Total Bilirubin 0.8 Aspartate Amino Transf 45 (AST/SGOT) Alanine Aminotransferase 36 (ALT/SGPT) Alkaline Phosphatase 80 Total Creatine Kinase 73 Troponin I 0.03 B-Type Natriuretic Peptide 763 Total Protein 8.4 Albumin 3.3 Result Diagram: 04/28/17 2305 04/28/172304 Imaging Last 48 hours Impressions Chest X-Ray 04/28/172233 Signed Impressions: Service Date/Time: , April 28, 2017 22:47 - CONCLUSION: 1. Cardiomegaly and findings of congestive heart failure. 2. Small bilateral effusions Glushan Crowley MD Assessment and Plan Problem List: (1) CHF exacerbation ICD Code: I50.9 Status: Acute (2) Chest pain ICD Code: R07.9 Status: Acute Assessment and Plan Impression: Acute on chronic diastolic heart failure. Chest tightnessrule out ACS. However likely related to CHF. A. fibwith RVR. Plan: Serial cardiac enzymes and EKGs. Lasix 40 mg IV every every 12 hours. Continue Cardizem drip, and taper off and discontinue. Overlap with oral meds. We'll follow electrolytes while on diuresis. Resume home meds. DVT prophylaxison Eliquis GI prophylaxison ranitidine. Discussed Condition With Patient, ER physician, patient's nurse Physician Certification 2 Midnight Certification Type: Admission for Inpatient Services Order for Inpatient Services The services are ordered in accordance with Medicare regulations or non- Medicare payer requirements, as applicable. In the case of services not specified as inpatient-only, they are appropriately provided as inpatient services in accordance with the 2-midnight benchmark. Estimated LOS (days): 2 days is the estimated time the patient will need to remain in the hospital, assuming treatment plan goals are met and no additional complications. Post-Hospital Plan: Myrtle Hurt MD Apr 29, 2017 04:01
[2017-04-29] MEDS ORDERED: GLUCAGON 1 MG/ML VIAL OTHER PRN (06:00)
[2017-04-29] MEDS ORDERED: DEXTROSE 50% IN WATER 50 ML VIAL(D50) IV PRN (06:00)
[2017-04-29] MEDS: LEVOTHYROXINE SODIUM 125 MCG TAB PO SCH (06:14)
[2017-04-29] MEDS: GLIMEPIRIDE 4 MG TAB PO SCH ×2 (06:14→17:20)
[2017-04-29] MEDS: INSULIN ASPART SUPPLEMENTAL SCALE SQ SCH ×4 (06:19→20:43)
[2017-04-29] MEDS: BUDESONIDE-FORMOTEROL 160/4.5 MCG INHALER INH SCH ×2 (08:46→20:39)
[2017-04-29] MEDS: TORSEMIDE 5 MG TAB PO SCH (08:47)
[2017-04-29] MEDS: POTASSIUM CHLORIDE 10 MEQ CONTROLLED RELEASE TAB PO SCH (08:47)
[2017-04-29] MEDS: METOPROLOL TARTRATE 50 MG TAB PO SCH ×2 (08:47→20:38)
[2017-04-29] MEDS: LISINOPRIL 5 MG TAB PO SCH (08:48)
[2017-04-29] MEDS: DILTIAZEM-CD 180 MG CAP ER PO SCH (08:48)
[2017-04-29] MEDS: APIXABAN 2.5 MG TABLET PO SCH ×2 (08:48→20:39)
[2017-04-29] MEDS: FAMOTIDINE 20 MG TAB PO SCH (08:48)
[2017-04-29] MEDS: FUROSEMIDE 40 MG/4 ML VIAL IV PUSH SCH ×2 (08:48→17:20)
[2017-04-29] MEDS: SODIUM CHLORIDE 0.9% FLUSH 10 ML FLUSH IV FLUSH SCH ×2 (08:49→20:39)
[2017-04-29] MEDS: RESP: ALBUTEROL 0.63 MG/3 ML NEB (SCH) NEB ×3 (12:00→21:00)
--- NOTE | 2017-04-29 12:24 | EKG ---
Date Performed: 04/29/2017 Time Performed: 05:56:10 PTAGE: 82 years EKG: Atrial fibrillation Extensive ST-T changes may be due to myocardial ischemia Abnormal ECG C ompared to prior tracing no significant change PREVIOUS TRACING : 04/28/2017 22.43 DOCTOR: Jimmy Rene Interpretating Date/Time 04/29/2017 12:22:15
--- NOTE | 2017-04-29 12:33 | EKG ---
Date Performed: 04/28/2017 Time Performed: 22:43:35 PTAGE: 82 years EKG: ATRIAL FIBRILLATION WITH RAPID VENTRICULAR RESPONSE ST DEVIATION AND MODERATE T-WAVE ABNORM ALITY, CONSIDER LATERAL ISCHEMIA ABNORMAL ECG Poor R wave progression in the anterior precordium Q wa ves previously noted in lead 2 and AVF have resolved PREVIOUS TRACING : 03/10/2017 08.12 DOCTOR: Jimmy Rene Interpretating Date/Time 04/29/2017 12:33:18
[2017-04-29] MEDS: DILTIAZEM HCL 30 MG TAB PO SCH ×2 (13:27→17:21)
[2017-04-30] VITALS: BP 146/68; PULSE 75; RESP 16; TEMP 98; O2SAT 98
[2017-04-30] MEDS: DILTIAZEM HCL 30 MG TAB PO SCH ×2 (00:02→05:54)
[2017-04-30 04:00] VITALS: BP 156/75; PULSE 82; RESP 20; TEMP 98.1; O2SAT 98
[2017-04-30] MEDS: LEVOTHYROXINE SODIUM 125 MCG TAB PO SCH (05:54)
[2017-04-30] MEDS: INSULIN ASPART SUPPLEMENTAL SCALE SQ SCH ×2 (06:36→12:28)
[2017-04-30 07:53] VITALS: O2SAT 92
[2017-04-30] MEDS: RESP: ALBUTEROL 0.63 MG/3 ML NEB (SCH) NEB ×2 (07:53→12:18)
[2017-04-30 08:00] VITALS: BP 162/85; PULSE 82; RESP 22; TEMP 98.3; O2SAT 94
[2017-04-30 08:04] VITALS: PULSE 84
[2017-04-30 08:13] LABS: AUTOMATED NEUTROPHIL # 2.9 TH/MM3 (1.8-7.7); BASOPHIL % 0.4 % (0.0-2.0); EOSINOPHIL # 0.1 TH/MM3 (0-0.4); EOSINOPHIL % 1.4 % (0.0-4.0); HEMATOCRIT 30.6 % (35.0-46.0); HEMO FLAGS AUTO DIFF; LYMPH % 19.8 % (9.0-44.0); LYMPHOCYTE # 0.9 TH/MM3 (1.0-4.8); MEAN CELL VOLUME 87.5 FL (80.0-100.0); MEAN CORPUSCULAR HEMOGLOBIN 28.8 PG (27.0-34.0); MEAN CORPUSCULAR HGB CONC 32.9 % (32.0-36.0); MONO % 15.8 % (0.0-8.0); NEUT % 62.6 % (16.0-70.0); PLATELET COUNT 66 TH/MM3 (150-450); RED CELL DISTRIBUTION WIDTH 15.9 % (11.6-17.2); WHITE BLOOD COUNT 4.6 TH/MM3 (4.0-11.0)
[2017-04-30 08:38] LABS: BICARBONATE 26.1 MEQ/L (21.0-32.0)
[2017-04-30] MEDS ORDERED: CARD180C5 PO (08:59)
[2017-04-30 09:01] LABS: ACANTHOCYTES OCC (NORMAL); OVALOCYTES 1+ (NORMAL); PLATELET ESTIMATE SMEAR LOW (NORMAL); PLATELET MORPHOLOGY NORMAL (NORMAL); SCAN/DIFF AUTO DIFF CONFIRMED
--- NOTE | 2017-04-30 09:02 | HHI.DS ---
Discharge Summary Admission Date Apr 29, 2017 at 12:59 am Discharge Date: Apr 30, 2017 Admitting Diagnosis CHF (1) CHF exacerbation ICD Code: I50.9 Diagnosis: Principal (2) Chest pain ICD Code: R07.9 Diagnosis: Secondary (3) Atrial fibrillation with rapid ventricular response ICD Code: I48.91 Diagnosis: Principal Procedures None Brief History - From Admission History from patient with cephalometric technician at the bedside. Patient is known to me from her prior hospitalization. She is extremely poor historian even with the head cleaning porter. She goes into mostly talking about her family still reads and her favorite granddaughter. She is afraid that she will not be able to go back to [place] to visit her granddaughter for her graduation. When asked about why she came to hospital, she reports that she has been short of breath and getting swollen in her lower extremities. Also reports of associated chest tightness. Denies any radiation. Denies any nausea or palpitations. Denies any cough or fever. She states that she is's have been short of breath. She states this happens on and off again and again and she knows that this is because of her heart. She states however that her chest tightness was resolved after she drank raheel anel. She thinks that this chest tightness is what is making her not able to breathe. She reports her daughter always go crazy with her symptoms and bring her to hospital. Again, it is quite difficult to get history from patient since she does not really answer the question directly and would rather talk about other stories. CBC/BMP: 04/30/17 0730 04/30/17 0730 Significant Findings Laboratory Tests Test 04/28/17 04/30/17 23:05 07:30 Red Blood Count 3.69 MIL/MM3 3.50 MIL/MM3 (4.00-5.30) (4.00-5.30) Hemoglobin 10.8 GM/DL 10.1 GM/DL (11.6-15.3) (11.6-15.3) Hematocrit 31.5 % 30.6 % (35.0-46.0) (35.0-46.0) Platelet Count 109 TH/MM3 66 TH/MM3 (150-450) (150-450) Monocytes (%) (Auto) 14.3 % 15.8 % (0.0-8.0) (0.0-8.0) Monocytes # (Auto) 1.0 TH/MM3 (0-0.9) Creatinine 1.54 MG/DL 1.17 MG/DL (0.50-1.00) (0.50-1.00) Estimat Glomerular Filtration 32 ML/MIN (>89) 44 ML/MIN (>89) Rate Random Glucose 173 MG/DL 140 MG/DL (74-106) (74-106) Calcium Level 8.4 MG/DL 8.0 MG/DL (8.5-10.1) (8.5-10.1) Aspartate Amino Transf 45 U/L (15-37) (AST/SGOT) B-Type Natriuretic Peptide 763 PG/ML (0-100) Total Protein 8.4 GM/DL (6.4-8.2) Albumin 3.3 GM/DL (3.4-5.0) Lymphocytes # (Auto) 0.9 TH/MM3 (1.0-4.8) Sodium Level 134 MEQ/L (136-145) Hospital Course Mrs. Ortiz is an 82-year-old female. She was admitted with CHF exacerbation which was secondary to A. fib RVR. No need for adjustment and diuretics. Once she is rate controlled she had normalization of her CHF symptoms and fluid balance. Chest pain had been present with A. fib RVR resolved with resolution of A. fib RVR. Negative cardiac workup. Her Cardizem has been adjusted. She is now stable on an increased dose of 360 mg of Cardizem CD daily. She is feeling back to baseline. Today she is medically stable for discharge back to home. With changes in Cardizem dosage and resumption of home, baseline diuretic. Pt Condition on Discharge: Stable Discharge Disposition: Discharge Home Discharge Time: <= 30 minutes Discharge Instructions DIET: Follow Instructions for: Heart Healthy Diet Activities you can perform: Regular-No Restrictions Follow up Referrals: PCP Follow-up - 1 Week New Medications: Diltiazem CD 24 HR (Cardizem CD 24 HR) 180 Mg Caper 360 MG PO DAILY A-fib rate control #30 CAP Continued Medications: Albuterol 8.5 GM Inh (Proair Hfa 8.5 GM Inh) 90 Mcg/Act Aer 1 PUFF INH BID 108 mcg/actuation PRN SHORTNESS OF BREATH #1 Ref 0 INHALER Alendronate (Alendronate) 70 Mg Tab 70 MG PO Q7D Osteporosis Treatment #4 Ref 0 TAB Apixaban (Eliquis) 2.5 Mg Tab 2.5 MG PO BID Blood Clot Prevention Ref 0 TAB Arformoterol Neb (Brovana Neb) 15 Mcg/2 Ml Vial 1 NEBULE NEB BID Maintenance treatment of bronchoconstriction in COPD. Broncospasm #60 NEBULE Budesonide-Formoterol Inh (Symbicort Inh) 160-4.5 Mcg/Act Aero 2 PUFF INH BID #1 Ref 0 INHALER Budesonide-Formoterol Inh (Symbicort Inh) 160-4.5 Mcg/Act Aero 1 PUFF INH Q12HR #1 Ref 0 INHALER Glimepiride (Glimepiride) 4 Mg Tab 4 MG PO BIDAC Blood Sugar Management #60 Ref 0 TAB Levalbuterol Neb (Xopenex Neb) 0.31 Mg/3 Ml Neb 0.31 MG NEB QID Breathing Treatment #120 Ref 0 NEBULE Levothyroxine (Levothyroxine) 125 Mcg Tab 125 MCG PO DAILY Thyroid #30 Ref 0 TAB Lisinopril (Lisinopril) 5 Mg Tab 5 MG PO DAILY Blood Pressure Management #30 Ref 0 TAB Metoprolol Tartrate (Lopressor) 50 Mg Tab 50 MG PO BID TACHYCARDIA #60 Ref 1 TAB Potassium Chloride ER (Potassium Chloride ER) 10 Meq Tab 20 MEQ PO DAILY Electrolyte Replacement #30 Ref 0 TAB Ranitidine (Zantac) 150 Mg Tab 150 MG PO DAILY Reduce Stomach Acid #30 Ref 0 TAB Sennosides (Senna Lax) 8.6 Mg Tab 17.2 MG PO DAILY Constipation #30 TAB Torsemide (Torsemide) 5 Mg Tab 10 MG PO DAILY Heart failure #60 TAB Discontinued Medications: Diltiazem CD 24 HR (Cardizem CD 24 HR) 180 Mg Caper 360 MG PO DAILY a-fib Days 30 Ref 0 CAP Angel Venegas MD Apr 30, 2017 9:02 am
[2017-04-30] MEDS: LISINOPRIL 5 MG TAB PO SCH (09:08)
[2017-04-30] MEDS: BUDESONIDE-FORMOTEROL 160/4.5 MCG INHALER INH SCH (09:08)
[2017-04-30] MEDS: TORSEMIDE 5 MG TAB PO SCH (09:08)
[2017-04-30] MEDS: DILTIAZEM-CD 180 MG CAP ER PO SCH (09:08)
[2017-04-30] MEDS: FAMOTIDINE 20 MG TAB PO SCH (09:08)
[2017-04-30] MEDS: FUROSEMIDE 40 MG/4 ML VIAL IV PUSH SCH (09:08)
[2017-04-30] MEDS: METOPROLOL TARTRATE 50 MG TAB PO SCH (09:09)
[2017-04-30] MEDS: APIXABAN 2.5 MG TABLET PO SCH (09:09)
[2017-04-30] MEDS: POTASSIUM CHLORIDE 10 MEQ CONTROLLED RELEASE TAB PO SCH (09:09)
[2017-04-30] MEDS: GLIMEPIRIDE 4 MG TAB PO SCH (09:09)
[2017-04-30 12:00] VITALS: BP 121/58; PULSE 87; RESP 20; TEMP 98.2; O2SAT 95
== END 2017-04-30 13:55 | disposition home or self-care (01) | DRG 293 ==
LOC: NEPE 22:20 → NEDA 04-29 00:37 → OBSVTOIN 04-29 00:59 → HCIS 04-29 02:07 → N04B 04-29 20:00
PROVIDERS: ADMIT Hospitalist; ATTEND Hospitalist
DX: I11.0 Hypertensive heart disease with heart failure (principal); I50.33 Acute on chronic diastolic (congestive) heart failure; K74.60 Unspecified cirrhosis of liver; I48.91 Unspecified atrial fibrillation; E11.9 Type 2 diabetes mellitus without complications; Z79.01 Long term (current) use of anticoagulants; B19.20 Unspecified viral hepatitis C without hepatic coma; E03.9 Hypothyroidism, unspecified; J45.909 Unspecified asthma, uncomplicated; M19.90 Unspecified osteoarthritis, unspecified site; K21.9 Gastro-esophageal reflux disease without esophagitis; I25.2 Old myocardial infarction; Z95.0 Presence of cardiac pacemaker; Z95.5 Presence of coronary angioplasty implant and graft; Z88.0 Allergy status to penicillin; Z79.84 Long term (current) use of oral hypoglycemic drugs; E78.5 Hyperlipidemia, unspecified; I25.10 Atherosclerotic heart disease of native coronary artery without angina pectoris
CPT/HCPCS: 36415; 71010; 80048; 80053; 82550; 82607; 82746; 82948; 83540; 83880; 84165; 84238; 84443; 84484; 85025; 93005; 94640; 96365; 96375; J1815; J1940; J7613

== ENCOUNTER 2017-05-10 08:24 | Inpatient (IN) | payer MEDICARE, MEDICAID ==
[2017-05-10] VITALS (11 sets, daily range): BP systolic 130–167; BP diastolic 73–89; PULSE 76–111; RESP 16–26; TEMP 96.9–97.9; O2SAT 92–99
[~2017-05-10] VITALS: Ht 152.4 cm; Wt 52.0 kg
[~2017-05-10 08:24] MED LIST changes: -DOCU1CAP39 PO; -FERR1TAB36 PO; -NYST1000 SWISH-SWAL
[2017-05-10] MEDS ORDERED: SODIUM CHLORIDE 0.9% FLUSH 10 ML FLUSH IVF PRN (09:00)
[2017-05-10] MEDS ORDERED: JANU50TA8 PO (09:05)
--- NOTE | 2017-05-10 09:06 | PD ---
HPI Chief Complaint: Respiratory Symptoms Time Seen by Provider: 08:54 Travel History International Travel<30 days: No Contact w/Intl Traveler<30days: No Traveled to known affect area: No History of Present Illness HPI 82-year-old female patient with history of previous A. fib on Eliquis, CHF, hypertension, diabetes, previous [place], COPD, presents to the ER today brought in by her daughter because she has had 3 days history of shortness of breath, dyspnea on exertion, and increase leg swelling according to her daughter. Patient has been coughing up yellowish phlegm. She has had no fevers but had one episode of vomiting yesterday. They deny any chest pains, fevers, abdominal pains, or other issues. Modifying Factors: None Associated Signs & Symptoms: Shortness of breath, dyspnea on exertion, leg swelling, coughing yellow phlegm Risk Factors: CHF history PFSH Past Medical History Hx Anticoagulant Therapy: Yes Arthritis: Yes (osteoporosis) Asthma: Yes (in the past) Autoimmune Disease: No Blood Disorders: No Anxiety: No Depression: No Heart Rhythm Problems: Yes Cancer: No Cardiac Catheterization: Yes (10-01-09) Cardiovascular Problems: Yes High Cholesterol: No Chemotherapy: No Chest Pain: Yes Congestive Heart Failure: Yes Cirrhosis: Yes COPD: No Diabetes: Yes Patient Takes Glucophage: No Diminished Hearing: No Endocrine: Yes Gastrointestinal Disorders: Yes GERD: Yes Genitourinary: No Headaches: No Hepatitis: Yes (hep c) Hiatal Hernia: No Hypertension: Yes Immune Disorder: Yes (hepatitis C) Implanted Vascular Access Dvce: Yes Kidney Stones: No Medical other: Yes ([employer] PACER CARD WITH PT FAMILY) Musculoskeletal: Yes Neurologic: No Psychiatric: No Reproductive: No Respiratory: Yes Migraines: No Myocardial Infarction: Yes Radiation Therapy: No Renal Failure: No Sickle Cell Disease: No Sleep Apnea: No Thyroid Disease: Yes Ulcer: No Menopausal: Yes : 5 Para: 4 Miscarriage: 1 Past Surgical History Abdominal Surgery: No AICD: No Appendectomy: No Arteriovenous Shunt: No Body Medical Devices: PACEMAKER AND STENTS Cardiac Surgery: Yes (stents) Cholecystectomy: Yes Coronary Stent: Yes (x2) Ear Surgery: No Endocrine Surgery: No Eye Surgery: Yes (cataract removal ) Genitourinary Surgery: Yes (gallbladder) Gynecologic Surgery: Yes (hysterectomy) Hysterectomy: Yes Insulin Pump: No Joint Replacement: No Oral Surgery: No Pacemaker: Yes Thoracic Surgery: No Other Surgery: Yes (STENTS PLACED) Social History Alcohol Use: No Tobacco Use: No Substance Use: No Allergies-Medications (Allergen,Severity, Reaction): Coded Allergies: Penicillin (Verified Allergy, Severe, Anaphylaxis, 05/10/17) Reported Meds & Prescriptions Reported Meds & Active Scripts Active Cardizem CD 24 HR (Diltiazem CD 24 HR) 180 Mg Caper 360 Mg PO DAILY Torsemide 5 Mg Tab 10 Mg PO DAILY Senna Lax (Sennosides) 8.6 Mg Tab 17.2 Mg PO DAILY Potassium Chloride ER (Potassium Chloride) 10 Meq Tab 20 Meq PO DAILY Lopressor (Metoprolol Tartrate) 50 Mg Tab 50 Mg PO BID Reported Glimepiride 1 Mg Tab 1 Mg PO DAILY PRN Take with breakfast or first main meal Janumet (Sitagliptin-Metformin) 50-1,000 Mg Tab 1 Tab PO BID Brovana Neb (Arformoterol Neb) 15 Mcg/2 Ml Vial 1 Nebule NEB BID Maintenance treatment of bronchoconstriction in COPD. Symbicort Inh (Budesonide/Formoterol Fumarate) 160-4.5 Mcg/Act Aero 1 Puff INH Q12HR Alendronate (Alendronate Sodium) 70 Mg Tab 70 Mg PO Q7D Proair Hfa 8.5 GM Inh (Albuterol Sulfate) 90 Mcg/Act Aer 1 Puff INH BID PRN 108 mcg/actuation Eliquis (Apixaban) 2.5 Mg Tab 2.5 Mg PO BID Glimepiride 4 Mg Tab 4 Mg PO BIDAC Zantac (Ranitidine HCl) 150 Mg Tab 150 Mg PO DAILY Levothyroxine (Levothyroxine Sodium) 125 Mcg Tab 125 Mcg PO DAILY Xopenex Neb (Levalbuterol HCl) 0.31 Mg/3 Ml Neb 0.31 Mg NEB QID Symbicort Inh (Budesonide/Formoterol Fumarate) 160-4.5 Mcg/Act Aero 2 Puff INH BID Review of Systems Except as stated in HPI: all other systems reviewed are Neg Physical Exam Narrative GENERAL: Well-developed elderly female patient currently in mild distress. Awake and oriented 3. SKIN: Focused skin assessment warm/dry. HEAD: Atraumatic. Normocephalic. EYES: Pupils equal and round. No scleral icterus. No injection or drainage. ENT: No nasal bleeding or discharge. Mucous membranes pink and moist. NECK: Trachea midline. No JVD. CARDIOVASCULAR: Irregularly irregular. No murmur appreciated. RESPIRATORY: No accessory muscle use. Decreased throughout without wheezing or crackles. Breath sounds equal bilaterally. GASTROINTESTINAL: Abdomen soft, non-tender, nondistended. Hepatic and splenic margins not palpable. MUSCULOSKELETAL: No obvious deformities. No clubbing. No cyanosis. No edema. NEUROLOGICAL: Awake and alert. No obvious cranial nerve deficits. Motor grossly within normal limits. Normal speech. PSYCHIATRIC: Appropriate mood and affect; insight and judgment normal. Data Data Last Documented VS Vital Signs Date Time Temp Pulse Resp B/P Pulse Ox O2 Delivery O2 Flow Rate FiO2 05/10/17 08:55 99 Nasal Cannula 2 05/10/17 08:25 97.8 111 26 134/73 Orders Complete Blood Count With Diff (05/10/17 08:49) Comprehensive Metabolic Panel (05/10/17 08:49) B-Type Natriuretic Peptide (05/10/17 08:49) Act Partial Throm Time (Ptt) (05/10/17 08:49) Prothrombin Time / Inr (Pt) (05/10/17 08:49) Ckmb (Isoenzyme) Profile (05/10/17 08:49) Troponin I (05/10/17 08:49) Iv Access Insert/Monitor (05/10/17 08:49) Electrocardiogram (05/10/17 08:49) Ecg Monitoring (05/10/17 08:49) Oximetry (05/10/17 08:49) Oxygen Administration (05/10/17 08:49) Chest, Single Ap (05/10/17 08:49) Sodium Chloride 0.9% Flush (Ns Flush) (05/10/17 09:00) Furosemide Inj (Lasix Inj) (05/10/17 11:00) Labs Laboratory Tests Test 05/10/17 09:10 White Blood Count 7.2 TH/MM3 Red Blood Count 3.68 MIL/MM3 Hemoglobin 10.5 GM/DL Hematocrit 32.5 % Mean Corpuscular Volume 88.3 FL Mean Corpuscular Hemoglobin 28.6 PG Mean Corpuscular Hemoglobin 32.4 % Concent Red Cell Distribution Width 16.2 % Platelet Count 115 TH/MM3 Mean Platelet Volume 9.5 FL Neutrophils (%) (Auto) 74.7 % Lymphocytes (%) (Auto) 14.3 % Monocytes (%) (Auto) 10.0 % Eosinophils (%) (Auto) 0.7 % Basophils (%) (Auto) 0.3 % Neutrophils # (Auto) 5.4 TH/MM3 Lymphocytes # (Auto) 1.0 TH/MM3 Monocytes # (Auto) 0.7 TH/MM3 Eosinophils # (Auto) 0.1 TH/MM3 Basophils # (Auto) 0.0 TH/MM3 CBC Comment DIFF FINAL Differential Comment Prothrombin Time 14.1 SEC Prothromb Time International 1.3 RATIO Ratio Activated Partial 30.5 SEC Thromboplast Time Sodium Level 135 MEQ/L Potassium Level 4.0 MEQ/L Chloride Level 99 MEQ/L Carbon Dioxide Level 22.0 MEQ/L Anion Gap 14 MEQ/L Blood Urea Nitrogen 22 MG/DL Creatinine 1.28 MG/DL Estimat Glomerular Filtration 40 ML/MIN Rate Random Glucose 176 MG/DL Calcium Level 8.8 MG/DL Total Bilirubin 1.0 MG/DL Aspartate Amino Transf 47 U/L (AST/SGOT) Alanine Aminotransferase 38 U/L (ALT/SGPT) Alkaline Phosphatase 69 U/L Total Creatine Kinase 67 U/L Troponin I 0.02 NG/ML B-Type Natriuretic Peptide 776 PG/ML Total Protein 9.3 GM/DL Albumin 3.5 GM/DL MDM Medical Decision Making Medical Screen Exam Complete: Yes Emergency Medical Condition: Yes Medical Record Reviewed: Yes Interpretation(s) EKG shows A. fib at a rate of 95 bpm with no signs of acute ST-T changes. Laboratory Tests Test 05/10/17 09:10 Red Blood Count 3.68 MIL/MM3 (4.00-5.30) Hemoglobin 10.5 GM/DL (11.6-15.3) Hematocrit 32.5 % (35.0-46.0) Platelet Count 115 TH/MM3 (150-450) Neutrophils (%) (Auto) 74.7 % (16.0-70.0) Monocytes (%) (Auto) 10.0 % (0.0-8.0) Prothrombin Time 14.1 SEC (9.8-11.6) Activated Partial 30.5 SEC Thromboplast Time (24.3-30.1) Sodium Level 135 MEQ/L (136-145) Blood Urea Nitrogen 22 MG/DL (7-18) Creatinine 1.28 MG/DL (0.50-1.00) Estimat Glomerular Filtration 40 ML/MIN (>89) Rate Random Glucose 176 MG/DL (74-106) Aspartate Amino Transf 47 U/L (15-37) (AST/SGOT) B-Type Natriuretic Peptide 776 PG/ML (0-100) Total Protein 9.3 GM/DL (6.4-8.2) Last 24 hours Impressions Chest X-Ray 05/10/17 0849 Signed Impressions: Service Date/Time: Wednesday, May 10, 2017 09:20 - CONCLUSION: Bibasilar airspace disease with small bilateral effusions. Mild cardiomegaly. Stable pacemaker No significant change since prior study Shiv Contreras MD Differential Diagnosis Shortness of breath, coughing yellow phlegmbronchitis versus pneumonia versus CHF Narrative Course Chest x-ray and lab work would indicate underlying CHF. She has pleural effusion noted as well on x-ray. At this point, patient was given Lasix and my plan would be to admit her for further treatment. Case was discussed with family practice resident service for admission. Diagnosis Primary Impression: CHF exacerbation Admitting Information Admitting Physician Requests: Admit Ana Laura Ivy MD May 10, 2017 09:06
[2017-05-10] MEDS ORDERED: GLIM1TAB PO (09:07)
[2017-05-10 09:28] LABS: AUTOMATED NEUTROPHIL # 5.4 TH/MM3 (1.8-7.7); BASOPHIL % 0.3 % (0.0-2.0); EOSINOPHIL # 0.1 TH/MM3 (0-0.4); EOSINOPHIL % 0.7 % (0.0-4.0); HEMATOCRIT 32.5 % (35.0-46.0); HEMO FLAGS DIFF FINAL; LYMPH % 14.3 % (9.0-44.0); MEAN CELL VOLUME 88.3 FL (80.0-100.0); MEAN CORPUSCULAR HEMOGLOBIN 28.6 PG (27.0-34.0); MEAN CORPUSCULAR HGB CONC 32.4 % (32.0-36.0); NEUT % 74.7 % (16.0-70.0); PLATELET COUNT 115 TH/MM3 (150-450); RED BLOOD COUNT 3.68 MIL/MM3 (4.00-5.30); RED CELL DISTRIBUTION WIDTH 16.2 % (11.6-17.2); WHITE BLOOD COUNT 7.2 TH/MM3 (4.0-11.0)
[2017-05-10 09:37] LABS: APTT (PATIENT) 30.5 SEC (24.3-30.1); INTERNATIONAL NORMALIZED RATIO 1.3 RATIO; PROTHROMBIN TIME - PATIENT 14.1 SEC (9.8-11.6)
[2017-05-10 09:51] LABS: ALT (GPT) 38 U/L (10-53); ANION GAP 14 MEQ/L (5-15); AST (GOT) 47 U/L (15-37); BLOOD UREA NITROGEN 22 MG/DL (7-18); CHLORIDE 99 MEQ/L (98-107); GLOMERULAR FILTRATION RATE 40 ML/MIN (>89); SODIUM (NA) 135 MEQ/L (136-145)
--- NOTE | 2017-05-10 09:53 | RADRPT ---
EXAM DATE/TIME: 05/10/2017 09:20 [place] COMPARISON: CHEST SINGLE AP, April 28, 2017, 22:47. INDICATIONS : Shortness of breath. MEDICAL HISTORY : Congestive heart failure. Cardiovascular disease. Diabetes mellitus type II. SURGICAL HISTORY : Pacemaker. Coronary artery stent. ENCOUNTER: Initial ACUITY: 4 - 6 days PAIN SCORE: 0/10 LOCATION: Bilateral chest FINDINGS: The lung bases remain hypoaerated with bibasilar airspace disease. Costophrenic angles are blunted razo ggesting small effusions. Heart is mildly enlarged. Dual chamber pacemaker is in stable position. CONCLUSION: Bibasilar airspace disease with small bilateral effusions. Mild cardiomegaly. Stable pacemaker No significant change since prior study Shiv Contreras MD on May 10, 2017 at 9:50 Board Certified Radiologist. This report was verified electronically.
[2017-05-10 09:54] LABS: ALKALINE PHOSPHATASE 69 U/L (45-117)
[2017-05-10 10:00] LABS: CREATINE KINASE 67 U/L (26-192)
[2017-05-10] MEDS ORDERED: FUROSEMIDE 40 MG/4 ML VIAL IV PUSH ONE (11:00)
[2017-05-10] MEDS ORDERED: GLIMEPIRIDE 1 MG TAB PO PRN (11:30)
[2017-05-10] MEDS ORDERED: SODIUM CHLORIDE 0.9% FLUSH 10 ML FLUSH IV FLUSH PRN (11:30)
--- NOTE | 2017-05-10 11:48 | HHI.HP ---
[facility] Service Family Medicine Primary Care Physician Milly Chicas M.D. Admission Diagnosis CHF exacerbation Diagnoses: International Travel<30 Days: No Contact w/Intl Traveler<30days: No Known Affected Area: No History of Present Illness 82-year-old female with a past medical history significant for COPD, CHF, CAD, atrial fibrillation anticoagulated on Eliquis and diabetes presents to the emergency department with 3 days of increasing shortness of breath and bilateral lower extremity edema. The patient reports adhering to all of her home medications. Her general forecaster is Dr. Day. Last echo done in June 2016 showed an ejection fraction of 60%. Patient was recently hospitalized for CHF exacerbation with A. fib with RVR. The patient's Cardizem was adjusted and she was discharged to home in good condition. Patient denies any fever/chills. Does report a new cough that was productive of yellow sputum which has now transitioned to white. She has no leukocytosis and has not noticed any wheezing. Chest x-ray done in the emergency department significant for cardiomegaly with bilateral small pleural effusions. BNP 776. Patient denies any chest pain/pressure. She has an AICD which has not fired. EKG showed rate controlled atrial fibrillation without any ST segment elevation or depression. 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) Past Surgical History Stent placement in 2008 Cholecystectomy Hysterectomy Reported Medications Reported Meds & Active Scripts Active Cardizem CD 24 HR (Diltiazem CD 24 HR) 180 Mg Caper 360 Mg PO DAILY Torsemide 5 Mg Tab 10 Mg PO DAILY Senna Lax (Sennosides) 8.6 Mg Tab 17.2 Mg PO DAILY Potassium Chloride ER (Potassium Chloride) 10 Meq Tab 20 Meq PO DAILY Lopressor (Metoprolol Tartrate) 50 Mg Tab 50 Mg PO BID Reported Glimepiride 1 Mg Tab 1 Mg PO DAILY PRN Take with breakfast or first main meal Janumet (Sitagliptin-Metformin) 50-1,000 Mg Tab 1 Tab PO BID Brovana Neb (Arformoterol Neb) 15 Mcg/2 Ml Vial 1 Nebule NEB BID Maintenance treatment of bronchoconstriction in COPD. Symbicort Inh (Budesonide/Formoterol Fumarate) 160-4.5 Mcg/Act Aero 1 Puff INH Q12HR Alendronate (Alendronate Sodium) 70 Mg Tab 70 Mg PO Q7D Proair Hfa 8.5 GM Inh (Albuterol Sulfate) 90 Mcg/Act Aer 1 Puff INH BID PRN 108 mcg/actuation Eliquis (Apixaban) 2.5 Mg Tab 2.5 Mg PO BID Glimepiride 4 Mg Tab 4 Mg PO BIDAC Zantac (Ranitidine HCl) 150 Mg Tab 150 Mg PO DAILY Levothyroxine (Levothyroxine Sodium) 125 Mcg Tab 125 Mcg PO DAILY Xopenex Neb (Levalbuterol HCl) 0.31 Mg/3 Ml Neb 0.31 Mg NEB QID Symbicort Inh (Budesonide/Formoterol Fumarate) 160-4.5 Mcg/Act Aero 2 Puff INH BID (Annika Hernández MD R3) Allergies: Coded Allergies: Penicillin (Verified Allergy, Severe, Anaphylaxis, 05/10/17) Family History Father of cirrhosis, cause of cirrhosis unknown. Mother's when patient was a child, cause unknown. Social History Never smoker. No alcohol. Denies illicit drugs. (Annika Hernández MD R3) Physical Exam Vital Signs Vital Signs Date Time Temp Pulse Resp B/P Pulse Ox O2 Delivery O2 Flow Rate FiO2 05/10/17 08:55 99 Nasal Cannula 2 05/10/17 08:55 99 Nasal Cannula 2 05/10/17 08:47 99 Nasal Cannula 3 05/10/17 08:25 97.8 111 26 134/73 92 Physical Exam Gen.: No acute distress Head: Normocephalic. Atraumatic. EENT: Pupils equal round and reactive to light. Nose without drainage. Airway intact. Throat without injection. Cardiovascular: Irregular rate, regular rhythm. No murmurs, rubs or gallops. Respiratory: Crackles in left lung base. No wheezes or rhonchi. Abdomen: Soft, nontender, nondistended. No peritoneal signs. Musculoskeletal: No gross deformities. 2+ bilateral pitting edema to the knees. Skin: No obvious rashes or erythema. Neuro: Sensory and motor grossly intact. Cranial nerves II through XII grossly intact. Psych: Appropriate mood and affect Laboratory Laboratory Tests Test 05/10/17 09:10 White Blood Count 7.2 Red Blood Count 3.68 Hemoglobin 10.5 Hematocrit 32.5 Mean Corpuscular Volume 88.3 Mean Corpuscular Hemoglobin 28.6 Mean Corpuscular Hemoglobin 32.4 Concent Red Cell Distribution Width 16.2 Platelet Count 115 Mean Platelet Volume 9.5 Neutrophils (%) (Auto) 74.7 Lymphocytes (%) (Auto) 14.3 Monocytes (%) (Auto) 10.0 Eosinophils (%) (Auto) 0.7 Basophils (%) (Auto) 0.3 Neutrophils # (Auto) 5.4 Lymphocytes # (Auto) 1.0 Monocytes # (Auto) 0.7 Eosinophils # (Auto) 0.1 Basophils # (Auto) 0.0 CBC Comment DIFF FINAL Differential Comment Prothrombin Time 14.1 Prothromb Time International 1.3 Ratio Activated Partial 30.5 Thromboplast Time Sodium Level 135 Potassium Level 4.0 Chloride Level 99 Carbon Dioxide Level 22.0 Anion Gap 14 Blood Urea Nitrogen 22 Creatinine 1.28 Estimat Glomerular Filtration 40 Rate Random Glucose 176 Calcium Level 8.8 Total Bilirubin 1.0 Aspartate Amino Transf 47 (AST/SGOT) Alanine Aminotransferase 38 (ALT/SGPT) Alkaline Phosphatase 69 Total Creatine Kinase 67 Troponin I 0.02 B-Type Natriuretic Peptide 776 Total Protein 9.3 Albumin 3.5 (Annika Hernández MD R3) Result Diagram: 05/10/17 0910 05/10/17 0910 Imaging Last Impressions Chest X-Ray 05/10/17 0849 Signed Impressions: Service Date/Time: Wednesday, May 10, 2017 09:20 - CONCLUSION: Bibasilar airspace disease with small bilateral effusions. Mild cardiomegaly. Stable pacemaker No significant change since prior study Shiv Contreras MD (Annika Hernández MD R3) Assessment and Plan Assessment and Plan 82-year-old female with multiple medical comorbidities presents with 3 days of CHF exacerbation. 1. CHF exacerbation Consult cardiology, patient known to Dr. Shay Venegas (last one June 2016) Lasix 40 mg IV twice a day Continue home torsemide Fluid restriction to less than 1200 and pulse per 24 hours 2. Renal insufficiency Patient's creatinine 1.28 which is baseline Monitor 3. COPD Continue home medications Duo nebs when necessary Not likely the cause of the patient's shortness of breath, monitor 4. Atrial fibrillation Rate controlled Continue home diltiazem and Eliquis 5. Diabetes mellitus Holding metformin, continue glimepiride SSI 6. Hypothyroidism Continue home Synthroid 7. Hepatitis C cirrhosis LFTs within normal limits Patient followed by gastroenterology, no interventions at this time 8. FEN Hep-Lock IV Heart healthy diet Fluid restriction as above Electrolytes: Replete when necessary Eliquis as above Code Status Full code (Annika Hernández MD R3) Problem List: (1) A-fib Status: Chronic (2) DM (diabetes mellitus) Status: Chronic (3) CKD (chronic kidney disease) stage 3, GFR 30-59 ml/min Status: Chronic (4) Cirrhosis Status: Chronic (5) History of hypertension Status: Acute (6) History of hyperlipidemia Status: Chronic (7) CAD (coronary artery disease) Status: Chronic (8) Acute on chronic diastolic CHF (congestive heart failure) Status: Acute (9) COPD (chronic obstructive pulmonary disease) Status: Chronic (Annika Hernández MD R3) Annika Hernández MD R3 May 10, 2017 11:48 Dinah Prado MD May 11, 2017 12:21
[2017-05-10] MEDS ORDERED: GLUCAGON 1 MG/ML VIAL OTHER PRN (12:15)
[2017-05-10] MEDS ORDERED: DEXTROSE 50% IN WATER 50 ML VIAL(D50) IV PRN (12:15)
--- NOTE | 2017-05-10 13:54 | EKG ---
Date Performed: 05/10/2017 Time Performed: 08:48:55 PTAGE: 82 years EKG: BASELINE ARTIFACT PRESENT. Unclear underlying rhythm, possibly atrial fibrillation. NONSPEC IFIC ST & T-WAVE ABNORMALITY ABNORMAL ECG NO PREVIOUS TRACING DOCTOR: Clarence Wallace Interpretating Date/Time 05/10/2017 13:53:44
[2017-05-10] MEDS ORDERED: RESP: ALBUTEROL 2.5 MG/IPRATROPIUM 0.5 MG NEB (PRN) NEB (15:15)
[2017-05-10] MEDS ORDERED: HEPARIN SODIUM - SQ 10,000 UNITS/ML VIAL SQ SCH ×2 (15:15→16:00)
[2017-05-10] MEDS: INSULIN ASPART SUPPLEMENTAL SCALE SQ SCH ×2 (16:30→20:01)
[2017-05-10] MEDS: LEVALBUTEROL HYDROCHLORIDE NEB ×2 (16:40→20:26)
[2017-05-10] MEDS: GLIMEPIRIDE 4 MG TAB PO SCH (16:56)
[2017-05-10] MEDS: FUROSEMIDE 40 MG/4 ML VIAL IVP SCH (16:57)
[2017-05-10] MEDS ORDERED: FUROSEMIDE 40 MG/4 ML VIAL IVP SCH (18:00)
[2017-05-10] MEDS ORDERED: ARFORMOTEROL INH SCH (20:00)
[2017-05-10] MEDS: SODIUM CHLORIDE 0.9% FLUSH 10 ML FLUSH IV FLUSH SCH (20:01)
[2017-05-10] MEDS: BUDESONIDE-FORMOTEROL 160/4.5 MCG INHALER INH SCH (20:01)
[2017-05-10] MEDS: METOPROLOL TARTRATE 50 MG TAB PO SCH (20:01)
[2017-05-10] MEDS: APIXABAN 2.5 MG TABLET PO SCH (20:01)
[2017-05-10] MEDS: FAMOTIDINE 20 MG TAB PO SCH (20:01)
--- NOTE | 2017-05-10 20:18 | MB ---
cc: VALERIE PRADO MD, HUMAYUN A. M.D. DATE OF CONSULTATION 05/10/[address] Prado for asking us to see this very pleasant 82-year-old white female that is well-known to me. She has a history of shortness of breath, congestive heart failure, atrial fibrillation, arteriosclerotic heart disease, type 2 diabetes, recurrent admissions with pneumonia / CHF exacerbation, a fib with RVR. The patient was about to go to [place] but became more short of breath and is admitted for evaluation and treatment. She has a new cough productive of yellow sputum which has now become white. Chest x-ray showed small pleural effusion. BNP is elevated at 776. The patient has a history of ICD. EKG shows atrial fibrillation. PAST MEDICAL HISTORY 1. Positive for chest pain. 2. Tachycardia. 3. Atrial fibrillation. 4. ASHD with [place] in 2008 followed by angioplasty and stent. 5. Dual-chamber pacemaker Biotronik in 2012. PAST SURGICAL HISTORY 1. Pacemaker Biotronik. 2. Stenting 2008. 3. Angioplasty. 4. Hysterectomy. 5. Cardiac catheterization 2013. One vessel disease. Normal left ventricular function. FFR mid circumflex 0.96 not significant [facility] 04/25/2014. MEDICATIONS At this time include: 1. Cardizem. 2. Potassium. 3. Senokot. 4. Torsemide. 5. Levothyroxine. 6. Eliquis. 7. Metoprolol. 8. Famotidine. 9. Lasix. 10. Amaryl. 11. Insulin. 12. Albuterol. 13. Dextrose. 14. Glucagon. 15. Glimepiride. 16. Sodium chloride. PHYSICAL EXAMINATION VITAL SIGNS: On examination pulse was 90, blood pressure 147/86, respiratory rate 16. HEENT: Eyes showed no xanthelasma. Mouth showed no cyanosis or pallor. NECK: Showed JVD. HEART: Two heart sounds. No murmurs. CHEST: Clear. ABDOMEN: Soft. No hepatosplenomegaly. EXTREMITIES: Legs reveal no evidence of edema. NEUROLOGIC: Examination grossly intact. SKIN: Examination intact. LABORATORY DATA Sodium 135, potassium 4.0, BUN 22, creatinine 1.28. INR 1.3. Platelet count 115,000. ASSESSMENT/PLAN At this point she is admitted for exacerbation of CHF with a high BNP and shortness of breath. She also has underlying COPD with decreased air entry bilaterally. Chest x-ray was actually quite stable. Agree with fluid restriction and intravenous Lasix. We will watch the patient's creatinine. Atrial fibrillation is stable at this time. Continue on Eliquis for anticoagulation to prevent stroke. Thank you for asking us see this very pleasant lady. Chuck Day MD, FRCP,[facility] HAJ/KK /7:16 PM /8:02 PM MTDJesus
[2017-05-10] MEDS ORDERED: NON-FORMULARY DRUG (Sitagliptin-Metformin (Janumet) 1 TAB) PO SCH (21:00)
[2017-05-11] VITALS (10 sets, daily range): BP systolic 135–185; BP diastolic 69–97; PULSE 88–128; RESP 16–20; TEMP 96.3–98.4; O2SAT 92–97
[2017-05-11] MEDS: LEVOTHYROXINE SODIUM 125 MCG TAB PO SCH (05:43)
[2017-05-11] MEDS: GLIMEPIRIDE 4 MG TAB PO SCH ×2 (05:43→17:25)
[2017-05-11] MEDS: INSULIN ASPART SUPPLEMENTAL SCALE SQ SCH ×4 (05:47→21:00)
[2017-05-11] MEDS: LEVALBUTEROL HYDROCHLORIDE NEB ×4 (08:02→12:31)
[2017-05-11 08:09] LABS: AUTOMATED NEUTROPHIL # 4.6 TH/MM3 (1.8-7.7); BASOPHIL % 0.2 % (0.0-2.0); EOSINOPHIL % 0.7 % (0.0-4.0); HEMATOCRIT 30.3 % (35.0-46.0); LYMPH % 16.8 % (9.0-44.0); LYMPHOCYTE # 1.1 TH/MM3 (1.0-4.8); MEAN CELL VOLUME 86.8 FL (80.0-100.0); MEAN CORPUSCULAR HEMOGLOBIN 28.3 PG (27.0-34.0); MEAN CORPUSCULAR HGB CONC 32.6 % (32.0-36.0); NEUT % 70.3 % (16.0-70.0); PLATELET COUNT 99 TH/MM3 (150-450); RED CELL DISTRIBUTION WIDTH 16.5 % (11.6-17.2); WHITE BLOOD COUNT 6.5 TH/MM3 (4.0-11.0)
[2017-05-11] MEDS: SENNOSIDES 8.6 MG TAB PO SCH (08:11)
[2017-05-11] MEDS: METOPROLOL TARTRATE 50 MG TAB PO SCH ×3 (08:11→22:08)
[2017-05-11] MEDS: FAMOTIDINE 20 MG TAB PO SCH ×2 (08:12→22:08)
[2017-05-11] MEDS: SODIUM CHLORIDE 0.9% FLUSH 10 ML FLUSH IV FLUSH SCH ×2 (08:12→21:00)
[2017-05-11] MEDS: APIXABAN 2.5 MG TABLET PO SCH ×2 (08:12→22:07)
[2017-05-11] MEDS: TORSEMIDE 5 MG TAB PO SCH (08:12)
[2017-05-11] MEDS: DILTIAZEM-CD 180 MG CAP ER PO SCH (08:12)
[2017-05-11] MEDS: POTASSIUM CHLORIDE 10 MEQ CONTROLLED RELEASE TAB PO SCH (08:12)
[2017-05-11] MEDS: FUROSEMIDE 40 MG/4 ML VIAL IVP SCH ×2 (08:13→17:25)
[2017-05-11] MEDS: BUDESONIDE-FORMOTEROL 160/4.5 MCG INHALER INH SCH ×2 (08:13→22:21)
[2017-05-11 08:18] LABS: HEMO FLAGS AUTO DIFF
[2017-05-11 08:41] LABS: BICARBONATE 29.3 MEQ/L (21.0-32.0)
[2017-05-11 08:49] LABS: OVALOCYTES 1+ (NORMAL); PLATELET ESTIMATE SMEAR LOW (NORMAL); PLATELET MORPHOLOGY NORMAL (NORMAL); SCAN/DIFF AUTO DIFF CONFIRMED
[2017-05-11] MEDS ORDERED: METOPROLOL TARTRATE 50 MG TAB PO ONE (10:00)
--- NOTE | 2017-05-11 12:21 | HHI.FPPN ---
Subjective Subjective Patient seen and examined with the resdient team this am Case reviewed and discussed Please refer to resident H&P for further details regarding HPI, ROS, PMH, SurgHx , FH and Sochx In summary, patient is an 82yo Bengali-speaking female presenting with acute exacerbation of chronic diastolic CHF. She is well-known to Dr. Day and has a history of afib with RVR, on Eliquis. She is seen in her hospital bed this am. reports her breathing is significantly improved. No cough, no chest pain. HR elevated to the 110-120s. [facility] Objective Objective Last Impressions Chest X-Ray 05/10/17 0849 Signed Impressions: Service Date/Time: Wednesday, May 10, 2017 09:20 - CONCLUSION: Bibasilar airspace disease with small bilateral effusions. Mild cardiomegaly. Stable pacemaker No significant change since prior study Shiv Contreras MD Laboratory Tests - Abnormals Test 05/11/17 07:24 Red Blood Count 3.50 MIL/MM3 Hemoglobin 9.9 GM/DL Hematocrit 30.3 % Platelet Count 99 TH/MM3 Neutrophils (%) (Auto) 70.3 % Monocytes (%) (Auto) 12.0 % Platelet Estimate LOW Ovalocytes 1+ Potassium Level 3.0 MEQ/L Chloride Level 97 MEQ/L Estimat Glomerular Filtration 56 ML/MIN Rate Random Glucose 117 MG/DL Vital Signs 05/10/17 05/10/17 05/10/17 05/10/17 13:07 14:47 15:00 16:40 Temp 97.9 Pulse 76 104 97 Resp 16 16 B/P 156/75 130/81 Pulse Ox 97 97 97 O2 Delivery Nasal Cannula Nasal Cannula O2 Flow Rate 2 2.00 05/10/17 05/10/17 05/10/17 05/10/17 19:59 20:27 22:25 23:36 Temp 96.9 97.4 Pulse 100 92 110 Resp 16 18 B/P 154/89 167/88 Pulse Ox 96 97 98 O2 Delivery Nasal Cannula O2 Flow Rate 2.00 05/10/17 05/11/17 05/11/17 05/11/17 23:36 03:53 08:00 08:08 Temp 96.3 97.8 Pulse 88 114 128 Resp 20 20 B/P 141/97 185/78 Pulse Ox 97 95 95 O2 Delivery Nasal Cannula O2 Flow Rate 2.00 05/11/17 12:00 Temp 98.4 Pulse 101 Resp 20 B/P 135/69 Pulse Ox 94 INTAKE & OUTPUT 05/11/17 07:00 Output Total 1500 ml Balance -1500 ml Physical exam GENERAL: wdwn female, resting in bed, NAD SKIN: Warm and dry. No rashes. HEAD: Normocephalic. AT EYES: No scleral icterus. No injection or drainage. ENT: OP clear. MMM NECK: Supple, trachea midline. No JVD or lymphadenopathy. CARDIOVASCULAR: Irregularly irregular and tachycardic without murmurs, gallops, or rubs. RESPIRATORY: Breath sounds equal with bibasilar crackles, no wheezing. No accessory muscle use. GASTROINTESTINAL: Abdomen soft, non-tender, nondistended. Normal active BS MUSCULOSKELETAL: No cyanosis, or edema. No calf tenderness BACK: Nontender without obvious deformity. No CVA tenderness. NEURO: awake and alert. Normal speech. CN grossly intact. Assessment Assessment 82yoF admitted with: Acute exac of chronic diastolic heart failure COPD Tachycardia, r/o afib with RVR Hx Afib Anticoagulated with Eliquis Acute renal injury Hypokalemia Uncontrolled HTN Type 2 diabetes mellitus Coronary artery disease s/p cardiac stent placement Status post [place] with AICD placement in 2012 Hypothyroidism 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) PLAN PLAN Diuresis Strict Is/Os stat ekg showing afib with RVR, will transfer from Obs for further management, IV Cardizem Monitor BMP, electrolytes Resume home meds as appropriate SSI Accuchecks Cardiology consulted. 2D echo DDimer DVT proph with Eliquis Patient seen and examined. Case reviewed and discussed Agree with plan of care as discussed with me and documented in the resident note. Dinah Prado MD May 11, 2017 12:21
--- NOTE | 2017-05-11 12:29 | EKG ---
Date Performed: 05/11/2017 Time Performed: 09:49:02 PTAGE: 82 years EKG: ATRIAL FIBRILLATION WITH RAPID VENTRICULAR RESPONSE NONSPECIFIC ST & T-WAVE ABNORMALITY ABN ORMAL RHYTHM ECG COMPARED TO PRIOR ELECTROCARDIOGRAM, rate has increased. PREVIOUS TRACING : 05/10/2017 08.48 DOCTOR: Clarence Wallace Interpretating Date/Time 05/11/2017 12:29:17
[2017-05-11] MEDS ORDERED: DILTIAZEM HCL 25 MG/5 ML VIAL IV ONE (12:45)
--- NOTE | 2017-05-11 13:17 | ECHRPT ---
Indication: Heart Failure CONCLUSIONS Normal left ventricular size. Moderate concentric left ventricular hypertrophy. The left ventricular systolic function is normal with an estimated ejection fraction in the range of 60-65%. No regional wall motion abnormalities are present. The left atrial size is mildly dilated. The right atrial size is mildly dilated. Aortic sclerosis. Trace mitral valve regurgitation. Moderate mitral annular calcification. There is moderate to severe tricuspid regurgitation. There is estimated severe pulmonary hypertension present ( > 70 mmHg). BP: 167 / 86 HR: 90 Rhythm: Atrial fibrillation MEASUREMENTS (Male / Female) Normal Values Technical Quality:Fair 2D ECHO LV Diastolic Diameter PLAX 2.5 cm 4.2 - 5.9 / 3.9 - 5.3 cm LV Systolic Diameter PLAX 1.7 cm IVS Diastolic Thickness 0.9 cm 0.6 - 1.0 / 0.6 - 0.9 cm LVPW Diastolic Thickness 0.9 cm 0.6 - 1.0 / 0.6 - 0.9 cm LV Relative Wall Thickness 0.7 RV Internal Dim ED PLAX 2.1 cm LA Systolic Diameter LX 3.6 cm 3.0 - 4.0 / 2.7 - 3.8 cm M-MODE Aortic Root Diameter MM 2.3 cm AV Cusp Separation MM 1.3 cm DOPPLER MV Peak Velocity 183.0 cm/s MV Peak Gradient 13.4 mmHg MV Mean Velocity 65.9 cm/s MV Mean Gradient 3.0 mmHg MV Area PHT 4.6 cm Mitral E Point Velocity 91.7 cm/s TR Peak Velocity 452.0 cm/s TR Peak Gradient 81.7 mmHg FINDINGS LEFT VENTRICLE Normal left ventricular size. Moderate concentric left ventricular hypertrophy. The left ventricular systolic function is normal with an estimated ejection fraction in the range of 60-65%. No regional wall motion abnormalities are present. This study was not technically sufficient to allow for evaluation of left ventricular diastolic func tion. LEFT ATRIUM The left atrial size is mildly dilated. RIGHT ATRIUM The right atrial size is mildly dilated. ATRIAL SEPTUM Normal atrial septal thickness without atrial level shunting by limited color doppler interrogation. AORTA The aortic root and proximal ascending aorta are normal in size on limited imaging. MITRAL VALVE Trace mitral valve regurgitation. Moderate mitral annular calcification. AORTIC VALVE Trileaflet aortic valve. Aortic sclerosis. No aortic valve stenosis or regurgitation. TRICUSPID VALVE Structurally normal tricuspid valve. There is moderate to severe tricuspid regurgitation. There is estimated severe pulmonary hypertension present ( > 70 mmHg). PULMONARY VALVE The pulmonary valve is not well visualized. VESSELS The inferior vena cava is normal in size. PERICARDIUM No pericardial effusion. Solis Stone MD, FACC (Electronically Signed) Final Date:11 May 2017 13:16
[2017-05-11] MEDS ORDERED: POTASSIUM CHLORIDE 10 MEQ CONTROLLED RELEASE TAB PO SCH (15:00)
[2017-05-11] MEDS ORDERED: IOHEXOL 350 MG/ML 10 ML VIAL (for RAD DIAG) IV ONE (18:23)
--- NOTE | 2017-05-11 18:43 | RADRPT ---
EXAM DATE/TIME: 05/11/2017 18:23 [place] COMPARISON: CT PULMONARY ANGIOGRAM, July 19, 2016, 17:13. INDICATIONS : Evaluate for thrombosis,shortness of breath for three days,leg swelling. IV CONTRAST: 50 cc Omnipaque 350 (iohexol) IV RADIATION DOSE: 32.05 CTDIvol (mGy) MEDICAL HISTORY : Cardiovascular disease. Hypertension. Diabetes mellitus type 2.COPD SURGICAL HISTORY : Pacemaker.Cardiac Stents. ENCOUNTER: Initial ACUITY: 3 days PAIN SCALE: 3/10 LOCATION: Bilateral chest TECHNIQUE: Volumetric scanning of the chest was performed using a pulmonary embolism protocol MIP images were re constructed. Using automated exposure control and adjustment of the mA and/or kV according to patien t size, radiation dose was kept as low as reasonably achievable to obtain optimal diagnostic quality images. FINDINGS: There is no pulmonary embolus. Coronary artery calcification noted both right and left-sided. Moderate right and small left pleural effusions are present and with mild atelectasis of both bases. No pneumothorax. CONCLUSION: No pulmonary embolus. Moderate right and small left pleural effusions with dependent atelectasis. Cor onary artery calcification. Ismael Calderón MD on May 11, 2017 at 18:39 Board Certified Radiologist. This report was verified electronically.
--- NOTE | 2017-05-11 22:10 | PD.CARD.PN ---
Subjective Subjective Remarks Feels better, speaks in rapid Irish Objective Medications Administered Medications Medications (Trade) Dose Ordered Sig/Marlon Route PRN Reason Start Time Stop Time Status Last Admin Dose Admin Apixaban (Eliquis) 2.5 mg BID PO 05/10/17 21:00 05/11/17 08:12 Budesonide/ Formoterol Fumarate (Symbicort 160-4.5 Inh) 2 puff BID INH 05/10/17 21:00 05/11/17 08:13 Diltiazem HCl (Cardizem Cd) 360 mg DAILY PO 05/11/17 09:00 05/11/17 08:12 Glimepiride (Amaryl) 4 mg BIDAC PO 05/10/17 16:00 05/11/17 17:25 Levothyroxine Sodium (Synthroid) 125 mcg DAILY@0600 PO 05/11/17 06:00 05/11/17 05:43 Metoprolol Tartrate (Lopressor) 50 mg BID PO 05/10/17 21:00 05/11/17 08:11 Potassium Chloride (KCl) 20 meq DAILY PO 05/11/17 09:00 05/11/17 08:12 Sennosides (Senokot) 17.2 mg DAILY PO 05/11/17 09:00 05/11/17 08:11 Torsemide (Demadex) 10 mg DAILY PO 05/11/17 09:00 05/11/17 08:12 Famotidine (Pepcid) 10 mg BID PO 05/10/17 21:00 05/11/17 08:12 Sodium Chloride (NS Flush) 2 ml UNSCH PRN IV FLUSH FLUSH AFTER USING IV ACCESS 05/10/17 11:30 05/10/17 16:58 Sodium Chloride (NS Flush) 2 ml BID IV FLUSH 05/10/17 21:00 05/11/17 08:12 Furosemide (Lasix Inj) 40 mg BID@09,18 IVP 05/10/17 18:00 05/11/17 17:25 Potassium Chloride (KCl) 30 meq DAILY PO 05/11/17 15:00 05/11/17 17:25 Vital Signs / I&O Vital Signs Date Time Temp Pulse Resp B/P Pulse Ox O2 Delivery O2 Flow Rate FiO2 05/11/17 16:00 98.4 88 20 160/79 92 05/11/17 14:00 96 05/11/17 13:40 98.0 92 20 138/77 95 05/11/17 12:00 98.4 101 20 135/69 94 05/11/17 08:15 123 05/11/17 08:08 95 Nasal Cannula 2.00 05/11/17 08:00 97.8 128 20 185/78 95 05/11/17 03:53 96.3 114 20 141/97 97 05/10/17 23:36 88 05/10/17 23:36 97.4 110 18 167/88 98 05/10/17 22:25 92 I/O 05/10/17 05/10/17 05/10/17 05/11/17 05/11/17 05/11/17 07:00 15:00 23:00 07:00 15:00 23:00 Intake Total 240 ml Output Total 1500 ml Balance -1500 ml 240 ml Intake Oral 240 ml Output Urine Total 1500 ml # Voids 1 2 # Bowel Movements 1 2 Physical Exam GENERAL: Well-nourished, well-developed elderly patient in no apparent distress. SKIN: Warm and dry. NECK: JVD normal - less than or equal to 5 cm H20. CARDIOVASCULAR: Regular rate and rhythm without murmurs, gallops or rubs. RESPIRATORY: Normal breath sounds - equal bilaterally. No accessory muscle use. No wheezes, rales or rubs. PERIPHERY: No cyanosis or edema. Laboratory Laboratory Tests Test 05/11/17 05/11/17 07:24 12:50 White Blood Count 6.5 TH/MM3 Red Blood Count 3.50 MIL/MM3 Hemoglobin 9.9 GM/DL Hematocrit 30.3 % Mean Corpuscular Volume 86.8 FL Mean Corpuscular Hemoglobin 28.3 PG Mean Corpuscular Hemoglobin 32.6 % Concent Red Cell Distribution Width 16.5 % Platelet Count 99 TH/MM3 Mean Platelet Volume 9.5 FL Neutrophils (%) (Auto) 70.3 % Lymphocytes (%) (Auto) 16.8 % Monocytes (%) (Auto) 12.0 % Eosinophils (%) (Auto) 0.7 % Basophils (%) (Auto) 0.2 % Neutrophils # (Auto) 4.6 TH/MM3 Lymphocytes # (Auto) 1.1 TH/MM3 Monocytes # (Auto) 0.8 TH/MM3 Eosinophils # (Auto) 0.0 TH/MM3 Basophils # (Auto) 0.0 TH/MM3 CBC Comment AUTO DIFF Differential Comment AUTO DIFF CONFIRMED Platelet Estimate LOW Platelet Morphology Comment NORMAL Ovalocytes 1+ Sodium Level 138 MEQ/L Potassium Level 3.0 MEQ/L Chloride Level 97 MEQ/L Carbon Dioxide Level 29.3 MEQ/L Anion Gap 12 MEQ/L Blood Urea Nitrogen 18 MG/DL Creatinine 0.95 MG/DL Estimat Glomerular Filtration 56 ML/MIN Rate Random Glucose 117 MG/DL Calcium Level 8.8 MG/DL D-Dimer Quantitative (PE/DVT) 0.82 MG/L FEU Imaging Last [address] Angiography 05/11/17 0000 Signed Impressions: Service Date/Time: Thursday, May 11, 2017 18:23 - CONCLUSION: No pulmonary embolus. Moderate right and small left pleural effusions with dependent atelectasis. Coronary artery calcification. Ismael Calderón MD Chest X-Ray 05/10/17 0849 Signed Impressions: Service Date/Time: Wednesday, May 10, 2017 09:20 - CONCLUSION: Bibasilar airspace disease with small bilateral effusions. Mild cardiomegaly. Stable pacemaker No significant change since prior study Shiv Contreras MD Assessment and Plan Assessment and Plan Overall improvement in breathing , denies chest pain. Chuck Day MD May 11, 2017 22:09
[2017-05-12 00:55] VITALS: BP 155/96; PULSE 98; RESP 16; TEMP 97.9; O2SAT 94
[2017-05-12 04:02] VITALS: BP 160/76; PULSE 107; RESP 16; TEMP 98.7; O2SAT 95
[2017-05-12] MEDS: LEVOTHYROXINE SODIUM 125 MCG TAB PO SCH (05:23)
[2017-05-12] MEDS: INSULIN ASPART SUPPLEMENTAL SCALE SQ SCH (05:54)
[2017-05-12] MEDS: GLIMEPIRIDE 4 MG TAB PO SCH (05:54)
[2017-05-12 07:20] LABS: AUTOMATED NEUTROPHIL # 4.1 TH/MM3 (1.8-7.7); BASOPHIL % 0.5 % (0.0-2.0); EOSINOPHIL # 0.1 TH/MM3 (0-0.4); EOSINOPHIL % 0.9 % (0.0-4.0); HEMATOCRIT 31.8 % (35.0-46.0); HEMO FLAGS DIFF FINAL; LYMPH % 23.9 % (9.0-44.0); LYMPHOCYTE # 1.6 TH/MM3 (1.0-4.8); MEAN CELL VOLUME 85.4 FL (80.0-100.0); MEAN CORPUSCULAR HEMOGLOBIN 29.1 PG (27.0-34.0); MONO % 12.9 % (0.0-8.0); NEUT % 61.8 % (16.0-70.0); PLATELET COUNT 107 TH/MM3 (150-450); RED BLOOD COUNT 3.72 MIL/MM3 (4.00-5.30); RED CELL DISTRIBUTION WIDTH 16.1 % (11.6-17.2); WHITE BLOOD COUNT 6.7 TH/MM3 (4.0-11.0)
[2017-05-12 07:38] LABS: ANION GAP 6 MEQ/L (5-15); AST (GOT) 45 U/L (15-37); BICARBONATE 35.2 MEQ/L (21.0-32.0); BLOOD UREA NITROGEN 15 MG/DL (7-18); CHLORIDE 99 MEQ/L (98-107); GLOMERULAR FILTRATION RATE 46 ML/MIN (>89); MAGNESIUM 1.2 MG/DL (1.5-2.5); POTASSIUM 3.1 MEQ/L (3.5-5.1); SODIUM (NA) 140 MEQ/L (136-145)
[2017-05-12 07:40] LABS: ALKALINE PHOSPHATASE 52 U/L (45-117); ALT (GPT) 30 U/L (10-53)
[2017-05-12 08:00] VITALS: BP 172/98; PULSE 100; PULSE 85; RESP 16; TEMP 98.6; O2SAT 96
[2017-05-12 08:04] VITALS: O2SAT 90
[2017-05-12] MEDS: SENNOSIDES 8.6 MG TAB PO SCH (08:55)
[2017-05-12] MEDS: FAMOTIDINE 20 MG TAB PO SCH (08:55)
[2017-05-12] MEDS: TORSEMIDE 5 MG TAB PO SCH (08:55)
[2017-05-12] MEDS: APIXABAN 2.5 MG TABLET PO SCH (08:55)
[2017-05-12] MEDS: METOPROLOL TARTRATE 50 MG TAB PO SCH (08:56)
[2017-05-12] MEDS: POTASSIUM CHLORIDE 10 MEQ CONTROLLED RELEASE TAB PO SCH (08:56)
[2017-05-12] MEDS: DILTIAZEM-CD 180 MG CAP ER PO SCH (08:56)
[2017-05-12] MEDS: BUDESONIDE-FORMOTEROL 160/4.5 MCG INHALER INH SCH (08:57)
[2017-05-12] MEDS: SODIUM CHLORIDE 0.9% FLUSH 10 ML FLUSH IV FLUSH SCH (08:57)
[2017-05-12] MEDS: FUROSEMIDE 40 MG/4 ML VIAL IVP SCH (08:57)
--- NOTE | 2017-05-12 09:06 | HHI.DCPOC ---
Discharge Care Plan Goals to Promote Your Health * To prevent worsening of your condition and complications follow all discharge instructions * To maintain your health at the optimal level take all medications as prescribed Directions to Meet Your Goals Take your medications as prescribed Follow your dietary instruction Follow activity as directed Keep your appointments as scheduled Take your immunizations and boosters as scheduled If your symptoms worsen call your PCP, if no PCP go to Urgent Care Center or Emergency Room Smoking is Dangerous to Your Health. Avoid second hand smoke Call the 24-hour hour crisis hotline for domestic abuse at Annika Hernández MD R3 May 12, 2017 09:06 Dinah Prado MD May 12, 2017 15:09
[2017-05-12] MEDS ORDERED: TORS20TA PO (09:11)
[2017-05-12] MEDS ORDERED: POTASSIUM CHLORIDE 20 MEQ CONTROLLED RELEASE TAB PO ONE (09:15)
[2017-05-12] MEDS ORDERED: METO100T PO (09:17)
--- NOTE | 2017-05-12 09:22 | HHI.FPPN ---
Subjective Remarks No acute events overnight. Afebrile. Mildly tachycardic to 110 yesterday. Patient states she is breathing well and that her shortness of breath has improved. She also states that her bilateral lower extremity edema is improved. (Annika Hernández MD R3) Objective Vitals Vital Signs Date Time Temp Pulse Resp B/P Pulse Ox O2 Delivery O2 Flow Rate FiO2 05/12/17 08:04 90 Nasal Cannula 2.50 05/12/17 04:02 98.7 107 16 160/76 95 05/12/17 00:55 97.9 98 16 155/96 94 05/11/17 21:40 98.2 110 16 153/86 93 05/11/17 20:44 97 05/11/17 16:00 98.4 88 20 160/79 92 05/11/17 14:00 96 05/11/17 13:40 98.0 92 20 138/77 95 05/11/17 12:00 98.4 101 20 135/69 94 I/O 05/11/17 05/11/17 05/11/17 05/12/17 05/12/17 05/12/17 07:00 15:00 23:00 07:00 15:00 23:00 Intake Total 240 ml 120 ml 100 ml Output Total 1500 ml 350 ml Balance -1500 ml 240 ml 120 ml -250 ml Intake Oral 240 ml 120 ml 100 ml Output Urine Total 1500 ml 350 ml # Voids 2 5 # Bowel Movements 1 2 2 0 (Annika Hernández MD R3) Result Diagram: 05/12/17 0701 05/12/17 0701 Objective Remarks Gen.: No acute distress Head: Normocephalic. Atraumatic. EENT: Pupils equal round and reactive to light. Nose without drainage. Airway intact. Throat without injection. Cardiovascular: Rate controlled with irregular rhythm. No murmurs, rubs or gallops. Respiratory: Lungs clear to auscultation bilaterally. No wheezes or rhonchi. Abdomen: Soft, nontender, nondistended. No peritoneal signs. Musculoskeletal: No gross deformities. 2+ pitting edema to just above the ankle , much improved from admission. Skin: No obvious rashes or erythema. Neuro: Sensory and motor grossly intact. Cranial nerves II through XII grossly intact. Psych: Appropriate mood and affect (Annika Hernández MD R3) A/P Assessment and Plan 82-year-old female with multiple medical comorbidities presents with 3 days of CHF exacerbation. 1. CHF exacerbation Consult cardiology, patient known to Dr. Day. Increase with diuresis. Echo (last one June 2016), EF of 6065 percent Lasix 40 mg IV twice a day Continue home torsemide, increase to 20 mg daily on discharge Fluid restriction to less than 1200 milliliters per 24 hours 2. Renal insufficiency Patient's creatinine remained at baseline Monitor 3. COPD Continue home medications Duo nebs when necessary Not likely the cause of the patient's shortness of breath, monitor 4. Atrial fibrillation Rate controlled at this time. Patient required a bolus of diltiazem yesterday for A. fib with RVR. Responded well. Continue home diltiazem and Eliquis 5. Diabetes mellitus Holding metformin, continue glimepiride SSI 6. Hypothyroidism Continue home Synthroid 7. Hepatitis C cirrhosis LFTs within normal limits Patient followed by gastroenterology, no interventions at this time 8. FEN Hep-Lock IV Heart healthy diet Fluid restriction as above Electrolytes: Given extra potassium and magnesium today prior to discharge. Repeat BMP in 1 week. Eliquis as above (Annika Hernández MD R3) Attending Attestation Patient seen and examined. Case reviewed and discussed Agree with plan of care as discussed with me and documented in the resident note. Oxygenating well, on home o2 breathing more comfortably rate more controlled discharge planning (Dinah Prado MD) Problem List: (1) A-fib Status: Chronic (2) DM (diabetes mellitus) Status: Chronic (3) CKD (chronic kidney disease) stage 3, GFR 30-59 ml/min Status: Chronic (4) Cirrhosis Status: Chronic (5) History of hypertension Status: Acute (6) History of hyperlipidemia Status: Chronic (7) CAD (coronary artery disease) Status: Chronic (8) Acute on chronic diastolic CHF (congestive heart failure) Status: Acute (9) COPD (chronic obstructive pulmonary disease) Status: Chronic (Annika Hernández MD R3) Annika Hernández MD R3 May 12, 2017 09:22 Dinah Prado MD May 12, 2017 15:08
--- NOTE | 2017-05-12 09:28 | HHI.DS ---
Annika Hernández MD R3 05/12/17 0928: Discharge Summary Admission Date May 11, 2017 at 12:38 Discharge Date: May 12, 2017 Admitting Diagnosis CHF exacerbation (1) A-fib Diagnosis: Secondary (2) DM (diabetes mellitus) Diagnosis: Secondary (3) CKD (chronic kidney disease) stage 3, GFR 30-59 ml/min Diagnosis: Secondary (4) Cirrhosis Diagnosis: Secondary (5) History of hypertension Diagnosis: Secondary (6) History of hyperlipidemia Diagnosis: Secondary (7) CAD (coronary artery disease) Diagnosis: Secondary (8) Acute on chronic diastolic CHF (congestive heart failure) Diagnosis: Principal (9) COPD (chronic obstructive pulmonary disease) Diagnosis: Secondary Consultants Cardiology Brief History History of present illness: 82-year-old female with a past medical history significant for COPD, CHF, CAD, atrial fibrillation anticoagulated on Eliquis and diabetes presents to the emergency department with 3 days of increasing shortness of breath and bilateral lower extremity edema. The patient reports adhering to all of her home medications. Her outbound sales consultant is Dr. Day. Last echo done in June 2016 showed an ejection fraction of 60%. Patient was recently hospitalized for CHF exacerbation with A. fib with RVR. The patient's Cardizem was adjusted and she was discharged to home in good condition. Patient denies any fever/chills. Does report a new cough that was productive of yellow sputum which has now transitioned to white. She has no leukocytosis and has not noticed any wheezing. Chest x-ray done in the emergency department significant for cardiomegaly with bilateral small pleural effusions. BNP 776. Patient denies any chest pain/pressure. She has an AICD which has not fired. EKG showed rate controlled atrial fibrillation without any ST segment elevation or depression. CBC/BMP: 05/12/17 0701 05/12/17 0701 Significant Findings Laboratory Tests Test 05/10/17 05/11/17 05/11/17 05/12/17 09:10 07:24 12:50 07:01 Red Blood Count 3.68 MIL/MM3 3.50 MIL/MM3 3.72 MIL/MM3 (4.00-5.30) (4.00-5.30) (4.00-5.30) Hemoglobin 10.5 GM/DL 9.9 GM/DL 10.8 GM/DL (11.6-15.3) (11.6-15.3) (11.6-15.3) Hematocrit 32.5 % 30.3 % 31.8 % (35.0-46.0) (35.0-46.0) (35.0-46.0) Platelet Count 115 TH/MM3 99 TH/MM3 107 TH/MM3 (150-450) (150-450) (150-450) Neutrophils (%) (Auto) 74.7 % 70.3 % (16.0-70.0) (16.0-70.0) Monocytes (%) (Auto) 10.0 % 12.0 % 12.9 % (0.0-8.0) (0.0-8.0) (0.0-8.0) Prothrombin Time 14.1 SEC (9.8-11.6) Activated Partial 30.5 SEC Thromboplast Time (24.3-30.1) Sodium Level 135 MEQ/L (136-145) Blood Urea Nitrogen 22 MG/DL (7-18) Creatinine 1.28 MG/DL 1.13 MG/DL (0.50-1.00) (0.50-1.00) Estimat Glomerular Filtration 40 ML/MIN (>89) 56 ML/MIN (>89) 46 ML/MIN (>89) Rate Random Glucose 176 MG/DL 117 MG/DL 130 MG/DL (74-106) (74-106) (74-106) Aspartate Amino Transf 47 U/L (15-37) 45 U/L (15-37) (AST/SGOT) B-Type Natriuretic Peptide 776 PG/ML (0-100) Total Protein 9.3 GM/DL 8.3 GM/DL (6.4-8.2) (6.4-8.2) Platelet Estimate LOW (NORMAL) Ovalocytes 1+ (NORMAL) Potassium Level 3.0 MEQ/L 3.1 MEQ/L (3.5-5.1) (3.5-5.1) Chloride Level 97 MEQ/L (98-107) D-Dimer Quantitative (PE/DVT) 0.82 MG/L FEU (0.00-0.50) Carbon Dioxide Level 35.2 MEQ/L (21.0-32.0) Magnesium Level 1.2 MG/DL (1.5-2.5) Albumin 3.1 GM/DL (3.4-5.0) Imaging Last Impressions CT Angiography 05/11/17 0000 Signed Impressions: Service Date/Time: Thursday, May 11, 2017 18:23 - CONCLUSION: No pulmonary embolus. Moderate right and small left pleural effusions with dependent atelectasis. Coronary artery calcification. Ismael Calderón MD Chest X-Ray 05/10/17 0849 Signed Impressions: Service Date/Time: Wednesday, May 10, 2017 09:20 - CONCLUSION: Bibasilar airspace disease with small bilateral effusions. Mild cardiomegaly. Stable pacemaker No significant change since prior study Shiv Contreras MD PE at Discharge Gen.: No acute distress Head: Normocephalic. Atraumatic. EENT: Pupils equal round and reactive to light. Nose without drainage. Airway intact. Throat without injection. Cardiovascular: Rate controlled with irregular rhythm. No murmurs, rubs or gallops. Respiratory: Lungs clear to auscultation bilaterally. No wheezes or rhonchi. Abdomen: Soft, nontender, nondistended. No peritoneal signs. Musculoskeletal: No gross deformities. 2+ pitting edema to just above the ankle , much improved from admission. Skin: No obvious rashes or erythema. Neuro: Sensory and motor grossly intact. Cranial nerves II through XII grossly intact. Psych: Appropriate mood and affect Hospital Course Patient admitted for acute on chronic diastolic congestive heart failure. She was diuresed with Lasix with good result. Shortness of breath and lower extremity edema both improved. Seen by cardiology, who recommended continued diuresis. Patient reverted to A. fib with RVR on hospital day 2 requiring a bolus dose of diltiazem. She responded well and was rate controlled. Given her CHF exacerbation her torsemide was increased to 20 mg daily. Her metoprolol was also increased secondary to her RVR and being dosed maximized on diltiazem at home. Patient with low potassium and magnesium during her hospital stay, electrolytes were repleted prior to discharge. She will continue her home potassium supplementation and will follow-up with a BMP in 1 week. Follow-up with PCP and Dr. Day. Pt Condition on Discharge: Stable Discharge Disposition: Discharge Home Discharge Instructions DIET: Follow Instructions for: Heart Healthy Diet Additional Diet Instructions: Fluid restriction to < 1200 ml/day Fluid Restrictions: 1200 mL/day Activities you can perform: Regular-No Restrictions Follow up Referrals: Cardiology - 2 Weeks with [facility] PCP Follow-up - 1 Week New Orders: BASIC METABOLIC PROF - 1 Week New Medications: Metoprolol Tartrate (Metoprolol Tartrate) 100 Mg Tab 100 MG PO BID #60 Ref 0 TAB Torsemide (Torsemide) 20 Mg Tab 20 MG PO DAILY #60 Ref 0 TAB Continued Medications: Albuterol 8.5 GM Inh (Proair Hfa 8.5 GM Inh) 90 Mcg/Act Aer 1 PUFF INH BID 108 mcg/actuation PRN SHORTNESS OF BREATH #1 Ref 0 INHALER Alendronate (Alendronate) 70 Mg Tab 70 MG PO Q7D Osteporosis Treatment #4 Ref 0 TAB Apixaban (Eliquis) 2.5 Mg Tab 2.5 MG PO BID Blood Clot Prevention Ref 0 TAB Arformoterol Neb (Brovana Neb) 15 Mcg/2 Ml Vial 1 NEBULE NEB BID Maintenance treatment of bronchoconstriction in COPD. Broncospasm #60 NEBULE Budesonide-Formoterol Inh (Symbicort Inh) 160-4.5 Mcg/Act Aero 2 PUFF INH BID #1 Ref 0 INHALER Budesonide-Formoterol Inh (Symbicort Inh) 160-4.5 Mcg/Act Aero 1 PUFF INH Q12HR #1 Ref 0 INHALER Diltiazem CD 24 HR (Cardizem CD 24 HR) 180 Mg Caper 360 MG PO DAILY A-fib rate control #30 CAP Glimepiride (Glimepiride) 4 Mg Tab 4 MG PO BIDAC Blood Sugar Management #60 Ref 0 TAB Glimepiride (Glimepiride) 1 Mg Tab 1 MG PO DAILY Take with breakfast or first main meal PRN Per Hypoglycemic Protocol #30 Ref 0 TAB Levalbuterol Neb (Xopenex Neb) 0.31 Mg/3 Ml Neb 0.31 MG NEB QID Breathing Treatment #120 Ref 0 NEBULE Levothyroxine (Levothyroxine) 125 Mcg Tab 125 MCG PO DAILY Thyroid #30 Ref 0 TAB Potassium Chloride ER (Potassium Chloride ER) 10 Meq Tab 20 MEQ PO DAILY Electrolyte Replacement #30 Ref 0 TAB Ranitidine (Zantac) 150 Mg Tab 150 MG PO DAILY Reduce Stomach Acid #30 Ref 0 TAB Sennosides (Senna Lax) 8.6 Mg Tab 17.2 MG PO DAILY Constipation #30 TAB Sitagliptin-Metformin (Janumet) 50-1,000 Mg Tab 1 TAB PO BID Blood Sugar Management #60 Ref 0 TAB Discontinued Medications: Metoprolol Tartrate (Lopressor) 50 Mg Tab 50 MG PO BID TACHYCARDIA #60 Ref 1 TAB Torsemide (Torsemide) 5 Mg Tab 10 MG PO DAILY Heart failure #60 TAB Dinah Prado MD 05/12/17 1509: Discharge Summary CBC/BMP: 05/12/17 0701 05/12/17 0701 Discharge Instructions Follow up Referrals: Cardiology - 2 Weeks with [facility] PCP Follow-up - 1 Week New Orders: BASIC METABOLIC PROF - 1 Week New Medications: Metoprolol Tartrate (Metoprolol Tartrate) 100 Mg Tab 100 MG PO BID #60 Ref 0 TAB Torsemide (Torsemide) 20 Mg Tab 20 MG PO DAILY #60 Ref 0 TAB Continued Medications: Albuterol 8.5 GM Inh (Proair Hfa 8.5 GM Inh) 90 Mcg/Act Aer 1 PUFF INH BID 108 mcg/actuation PRN SHORTNESS OF BREATH #1 Ref 0 INHALER Alendronate (Alendronate) 70 Mg Tab 70 MG PO Q7D Osteporosis Treatment #4 Ref 0 TAB Apixaban (Eliquis) 2.5 Mg Tab 2.5 MG PO BID Blood Clot Prevention Ref 0 TAB Arformoterol Neb (Brovana Neb) 15 Mcg/2 Ml Vial 1 NEBULE NEB BID Maintenance treatment of bronchoconstriction in COPD. Broncospasm #60 NEBULE Budesonide-Formoterol Inh (Symbicort Inh) 160-4.5 Mcg/Act Aero 2 PUFF INH BID #1 Ref 0 INHALER Budesonide-Formoterol Inh (Symbicort Inh) 160-4.5 Mcg/Act Aero 1 PUFF INH Q12HR #1 Ref 0 INHALER Diltiazem CD 24 HR (Cardizem CD 24 HR) 180 Mg Caper 360 MG PO DAILY A-fib rate control #30 CAP Glimepiride (Glimepiride) 4 Mg Tab 4 MG PO BIDAC Blood Sugar Management #60 Ref 0 TAB Glimepiride (Glimepiride) 1 Mg Tab 1 MG PO DAILY Take with breakfast or first main meal PRN Per Hypoglycemic Protocol #30 Ref 0 TAB Levalbuterol Neb (Xopenex Neb) 0.31 Mg/3 Ml Neb 0.31 MG NEB QID Breathing Treatment #120 Ref 0 NEBULE Levothyroxine (Levothyroxine) 125 Mcg Tab 125 MCG PO DAILY Thyroid #30 Ref 0 TAB Potassium Chloride ER (Potassium Chloride ER) 10 Meq Tab 20 MEQ PO DAILY Electrolyte Replacement #30 Ref 0 TAB Ranitidine (Zantac) 150 Mg Tab 150 MG PO DAILY Reduce Stomach Acid #30 Ref 0 TAB Sennosides (Senna Lax) 8.6 Mg Tab 17.2 MG PO DAILY Constipation #30 TAB Sitagliptin-Metformin (Janumet) 50-1,000 Mg Tab 1 TAB PO BID Blood Sugar Management #60 Ref 0 TAB Discontinued Medications: Metoprolol Tartrate (Lopressor) 50 Mg Tab 50 MG PO BID TACHYCARDIA #60 Ref 1 TAB Torsemide (Torsemide) 5 Mg Tab 10 MG PO DAILY Heart failure #60 TAB Annika Hernández MD R3 May 12, 2017 09:28 Dinah Prado MD May 12, 2017 15:09
[2017-05-12] MEDS: MAGNESIUM SULFATE 1 GM PREMIX 100 ML IV SCH ×2 (10:00→11:47)
[2017-05-12 12:00] VITALS: BP 131/68; PULSE 75; RESP 18; TEMP 98.7; O2SAT 97
== END 2017-05-12 16:26 | disposition home or self-care (01) | DRG 291 ==
LOC: NEPC 08:24 → NEDA 10:59 → NEPHCDU 13:18 → OBSVTOIN 05-11 12:38 → N04B 05-11 13:42
PROVIDERS: ADMIT Family Medicine; ATTEND Family Medicine
DX: I13.0 Hypertensive heart and chronic kidney disease with heart failure and stage 1 through stage 4 chronic kidney disease, or unspecified chronic kidney disease (principal); I50.33 Acute on chronic diastolic (congestive) heart failure; N17.9 Acute kidney failure, unspecified; J90 Pleural effusion, not elsewhere classified; E11.22 Type 2 diabetes mellitus with diabetic chronic kidney disease; J44.1 Chronic obstructive pulmonary disease with (acute) exacerbation; K74.60 Unspecified cirrhosis of liver; I48.91 Unspecified atrial fibrillation; N18.3 Chronic kidney disease, stage 3 (moderate); Z79.01 Long term (current) use of anticoagulants; B19.20 Unspecified viral hepatitis C without hepatic coma; E03.9 Hypothyroidism, unspecified; E78.5 Hyperlipidemia, unspecified; E87.6 Hypokalemia; I25.10 Atherosclerotic heart disease of native coronary artery without angina pectoris; I25.2 Old myocardial infarction; K21.9 Gastro-esophageal reflux disease without esophagitis; M81.0 Age-related osteoporosis without current pathological fracture; Z95.5 Presence of coronary angioplasty implant and graft; Z95.810 Presence of automatic (implantable) cardiac defibrillator; R00.0 Tachycardia, unspecified; Z87.01 Personal history of pneumonia (recurrent); R60.9 Edema, unspecified
CPT/HCPCS: 71010; 71275; 80048; 80053; 82550; 82948; 83735; 83880; 84484; 85025; 85379; 85610; 85730; 93005; 93306; 94640; 94664; 96372; 96374; 96376; G0378; J1815; J1940; J3475; J7614; Q9967

== ENCOUNTER 2017-06-27 21:53 | Inpatient (IN) | payer MEDICARE, MEDICAID ==
[~2017-06-27] VITALS: Ht 149.9 cm; Wt 57.5 kg
[~2017-06-27 21:53] MED LIST changes: +GLIM1TAB PO; +JANU50TA8 PO; -LISI-519 PO; -METO-309 PO; +METO100T PO; +TORS20TA PO; -TORS5TAB2 PO
[2017-06-27 21:57] VITALS: BP 155/88; PULSE 167; RESP 18; TEMP 98.4; O2SAT 94
[2017-06-27 22:04] VITALS: BP 160/107; PULSE 168; RESP 20; TEMP 98.3; O2SAT 93
[2017-06-27] MEDS ORDERED: GLIM1TAB PO (22:21)
[2017-06-27] MEDS ORDERED: FERR325T72 PO (22:21)
[2017-06-27] MEDS ORDERED: XOPEAER4 INH (22:21)
[2017-06-27] MEDS ORDERED: DILT90TA PO (22:21)
[2017-06-27] MEDS ORDERED: POTA10CA PO (22:21)
[2017-06-27] MEDS ORDERED: METO50TA11 PO (22:21)
[2017-06-27] MEDS ORDERED: LISI-519 PO (22:21)
[2017-06-27] MEDS ORDERED: TORS10TA2 PO (22:21)
[2017-06-27] MEDS ORDERED: DIPR0.053 TOPICAL (22:21)
[2017-06-27] MEDS ORDERED: FURO20TA PO (22:21)
--- NOTE | 2017-06-27 22:39 | PD ---
HPI Chief Complaint: GI Complaint Time Seen by Provider: 22:13 Travel History International Travel<30 days: No Contact w/Intl Traveler<30days: No Traveled to known affect area: No History of Present Illness HPI The patient is an 82 year old female who presents to the [facility] emergency department with a history of nausea, vomiting, and diarrhea that began this morning. She's had 4-5 episodes of a and 2 episodes of diarrhea according to her daughter at the bedside. The patient's daughter became concerned when she did check her blood pressure and pulse by a home monitor and noted that her heart rate was in the 150s. Her daughter reports that she did take her medications today and seemed to be able to keep them down. She does have a history of atrial fibrillation. She is on Eliquis for anticoagulation. She denies having any chest pain, shortness of breath at this time. She does report having palpitations. She denies having any blood in her stool or black or tarry stools. She reports that her stool is light brown in color and soft in consistency. She denies having any any associated abdominal pain. On review of systems, the patient denies any known recent fevers, cough, congestion , neck pain, urinary symptoms, or neurologic symptoms. Incidentally the patient 's daughter reports that she has had lower extremity edema for the last month that waxes and wanes in severity. She was seen by her primary care physician and did get a 4 day course of diuretic. She was then also seen by her spotlight operator approximately 2 weeks ago and had a recurrence of the swelling and was therefore given a four-day course of diuretic twice a day, followed by continuation of her diuretic once a day. She does have a history of congestive heart failure. [facility] Past Medical History Narrative Medical The patient's past medical history is significant for atrial fibrillation, history of hepatitis C with associated splenomegaly and thrombocytopenia, liver cirrhosis, anemia related to chronic kidney disease and liver disease, history of congestive heart failure, history of coronary artery disease status post angioplasty and stent placement, history of diabetes mellitus, osteoporosis, atrial fibrillation, asthma, and hypertension Hx Anticoagulant Therapy: Yes Arthritis: Yes (osteoporosis) Asthma: Yes Autoimmune Disease: No Blood Disorders: No Anxiety: No Depression: No Heart Rhythm Problems: Yes Cancer: No Cardiac Catheterization: Yes (10-01-09) Cardiovascular Problems: Yes High Cholesterol: No Chemotherapy: No Chest Pain: Yes Congestive Heart Failure: Yes Cirrhosis: Yes COPD: No Diabetes: Yes Patient Takes Glucophage: No Diminished Hearing: No Endocrine: Yes Gastrointestinal Disorders: Yes GERD: Yes Genitourinary: No Headaches: No Hepatitis: Yes (hep c) Hiatal Hernia: No Hypertension: Yes Immune Disorder: Yes (hepatitis C) Implanted Vascular Access Dvce: Yes Kidney Stones: No Musculoskeletal: Yes Neurologic: No Psychiatric: No Reproductive: No Respiratory: Yes Migraines: No Myocardial Infarction: Yes Radiation Therapy: No Renal Failure: No Sickle Cell Disease: No Sleep Apnea: No Thyroid Disease: Yes Ulcer: No Menopausal: Yes : 5 Para: 4 Miscarriage: 1 Past Surgical History Narrative Surgical The patient's past surgical history is significant for a cholecystectomy, hysterectomy, pacemaker placement, history of cardiac angioplasty and stent placement. Abdominal Surgery: No AICD: No Appendectomy: No Arteriovenous Shunt: No Body Medical Devices: PACEMAKER AND STENTS Cardiac Surgery: Yes (stents) Cholecystectomy: Yes Coronary Stent: Yes (x2) Ear Surgery: No Endocrine Surgery: No Eye Surgery: Yes (cataract removal ) Genitourinary Surgery: Yes (gallbladder) Gynecologic Surgery: Yes (hysterectomy) Hysterectomy: Yes Insulin Pump: No Joint Replacement: No Oral Surgery: No Pacemaker: Yes Thoracic Surgery: No Social History Alcohol Use: No Tobacco Use: No Substance Use: No Allergies-Medications (Allergen,Severity, Reaction): Coded Allergies: Penicillin (Verified Allergy, Severe, Anaphylaxis, 06/27/17) Reported Meds & Prescriptions Reported Meds & Active Scripts Active Senna Lax (Sennosides) 8.6 Mg Tab 17.2 Mg PO DAILY Reported Furosemide 20 Mg Tab 20 Mg PO BID Torsemide 10 Mg Tab 10 Mg PO DAILY Metoprolol Succinate ER 24 HR (Metoprolol Succinate) 50 Mg Tab 50 Mg PO TID Lisinopril 5 Mg Tab 5 Mg PO DAILY Diltiazem (Diltiazem HCl) 90 Mg Tab 180 Mg PO TID Glimepiride 1 Mg Tab 1 Mg PO BID Take with breakfast or first main meal Diprolene Topical (Betamethasone Dipropionate Aug Topical) 0.05% Oint 1 Applic TOPICAL BID Ferrous Gluconate 325 Mg Tab 325 Mg PO TID Potassium Chloride ER (Potassium Chloride) 10 Meq Cap 10 Meq PO DAILY Xopenex Hfa 15 GM Inh (Levalbuterol 15 GM Inh) 45 Mcg/Act Aer 45 Mcg INH Q6HR Shake well before using. (1 puff = 45 mcg) Janumet (Sitagliptin-Metformin) 50-1,000 Mg Tab 1 Tab PO BID Brovana Neb (Arformoterol Neb) 15 Mcg/2 Ml Vial 1 Nebule NEB BID Maintenance treatment of bronchoconstriction in COPD. Alendronate (Alendronate Sodium) 70 Mg Tab 70 Mg PO Q7D Proair Hfa 8.5 GM Inh (Albuterol Sulfate) 90 Mcg/Act Aer 1 Puff INH BID PRN 108 mcg/actuation Eliquis (Apixaban) 2.5 Mg Tab 2.5 Mg PO BID Zantac (Ranitidine HCl) 150 Mg Tab 150 Mg PO DAILY Levothyroxine (Levothyroxine Sodium) 125 Mcg Tab 125 Mcg PO DAILY Symbicort Inh (Budesonide/Formoterol Fumarate) 160-4.5 Mcg/Act Aero 2 Puff INH BID Review of Systems Except as stated in HPI: all other systems reviewed are Neg General / Constitutional: No: Fever Eyes: No: Visual changes HENT: No: Headaches Cardiovascular: Positive: Palpitations, Edema, No: Chest Pain or Discomfort, Dyspnea on exertion Respiratory: No: Shortness of Breath Gastrointestinal: Positive: Nausea, Vomiting, Diarrhea, Changes in Bowel Habits , No: Abdominal Pain, Hematemesis, Hematochezia, Indigestion, Loss of Appetite Genitourinary: No: Dysuria Musculoskeletal: No: Pain Skin: No Rash Neurologic: No: Weakness Psychiatric: No: Depression Endocrine: No: Polydipsia Hematologic/Lymphatic: No: Easy Bruising Physical Exam Narrative General: The patient is a well-developed well-nourished female in no acute distress. Head and Neck exam: Head is normocephalic atraumatic. Eyes: EOMI, pupils are equal round and reactive to light. Nose: Midline septum with pink mucous membranes Mouth: Dentition unremarkable. Moist mucus membranes. Posterior oropharynx is not erythematous. No tonsillar hypertrophy. Uvula midline. Airway patent. Neck: No palpable lymphadenopathy. No nuchal rigidity. No thyromegaly. Cardiovascular: Irregularly irregular with a rate in the 130s without murmurs, gallops, or rubs. No pulse deficit to the extremities intermittently on simultaneous palpation of her radial artery and auscultation. Lungs: Clear to auscultation bilaterally. No wheezes, rhonchi, or rales. Abdomen: Soft, without tenderness to palpation in all 4 quadrants of the abdomen. No guarding, rebound, or rigidity. Normal bowel sounds are audible. No tenderness on palpation of McBurney's point. Negative [place] sign. Extremities: No clubbing or cyanosis. The patient has 1+ pitting edema bilateral lower extremities. 2+ pulses in all 4 extremities. No calf tenderness on palpation. Back: No costovertebral angle tenderness to palpation. Neurologic Exam: Grossly nonfocal. Skin Exam: No rash noted. Intact skin that is warm and dry. Data Data Last Documented VS Vital Signs Date Time Temp Pulse Resp B/P Pulse Ox O2 Delivery O2 Flow Rate FiO2 06/28/17 01:19 108 18 133/89 92 Nasal Cannula 2 06/27/17 22:04 98.3 Orders Electrocardiogram (06/27/17 22:31) Complete Blood Count With Diff (06/27/17 22:31) Comprehensive Metabolic Panel (06/27/17 22:31) Creatine Kinase (Cpk) (06/27/17 22:31) Ckmb (Isoenzyme) Profile (06/27/17 22:31) Troponin I (06/27/17 22:31) B-Type Natriuretic Peptide (06/27/17 22:31) Prothrombin Time / Inr (Pt) (06/27/17 22:31) Act Partial Throm Time (Ptt) (06/27/17 22:31) C-Reactive Protein (Crp) (06/27/17 22:31) Lipase (06/27/17 22:31) Urinalysis - C+S If Indicated (06/27/17 22:31) Magnesium (Mg) (06/27/17 22:31) Chest, Single Ap (06/27/17 22:31) Iv Access Insert/Monitor (06/27/17 22:31) Ecg Monitoring (06/27/17 22:31) Oximetry (06/27/17 22:31) Lactic Acid (06/27/17 22:31) Sodium Chlorid 0.9% 500 Ml Inj (Ns 500 M (06/27/17 22:45) Ondansetron Inj (Zofran Inj) (06/27/17 22:45) Diltiazem Inj (Cardizem Inj) (06/27/17 23:15) Blood Pressure (06/27/17 23:11) Diltiazem Inj (Cardizem Inj) (06/27/17 23:15) Sodium Chloride 0.9% Flush (Ns Flush) (06/27/17 23:15) Ct Abd/Pel W Iv Contrast(Rout) (06/28/17 00:38) Iodixanol 320 Inj (Rad Ct) (Visipaque 32 (06/28/17 01:13) Sodium Chlorid 0.9% 500 Ml Inj (Ns 500 M (06/28/17 01:45) Admit Order (Ed Use Only) (06/28/17 02:07) Labs Laboratory Tests Test 06/27/17 06/28/17 22:40 00:35 White Blood Count 14.6 TH/MM3 Red Blood Count 3.82 MIL/MM3 Hemoglobin 11.0 GM/DL Hematocrit 34.0 % Mean Corpuscular Volume 89.1 FL Mean Corpuscular Hemoglobin 28.9 PG Mean Corpuscular Hemoglobin 32.5 % Concent Red Cell Distribution Width 16.0 % Platelet Count 138 TH/MM3 Mean Platelet Volume 10.3 FL Neutrophils (%) (Auto) 81.2 % Lymphocytes (%) (Auto) 7.4 % Monocytes (%) (Auto) 10.3 % Eosinophils (%) (Auto) 0.5 % Basophils (%) (Auto) 0.6 % Neutrophils # (Auto) 11.9 TH/MM3 Lymphocytes # (Auto) 1.1 TH/MM3 Monocytes # (Auto) 1.5 TH/MM3 Eosinophils # (Auto) 0.1 TH/MM3 Basophils # (Auto) 0.1 TH/MM3 CBC Comment DIFF FINAL Differential Comment Prothrombin Time 12.9 SEC Prothromb Time International 1.2 RATIO Ratio Activated Partial 27.3 SEC Thromboplast Time Sodium Level 140 MEQ/L Potassium Level 4.3 MEQ/L Chloride Level 101 MEQ/L Carbon Dioxide Level 26.8 MEQ/L Anion Gap 12 MEQ/L Blood Urea Nitrogen 22 MG/DL Creatinine 1.51 MG/DL Estimat Glomerular Filtration 33 ML/MIN Rate Random Glucose 162 MG/DL Calcium Level 8.6 MG/DL Magnesium Level 1.3 MG/DL Total Bilirubin 1.0 MG/DL Aspartate Amino Transf 49 U/L (AST/SGOT) Alanine Aminotransferase 40 U/L (ALT/SGPT) Alkaline Phosphatase 73 U/L Total Creatine Kinase 80 U/L Troponin I LESS THAN 0.02 NG/ML C-Reactive Protein LESS THAN 0.29 MG/DL B-Type Natriuretic Peptide 648 PG/ML Total Protein 9.4 GM/DL Albumin 3.6 GM/DL Lipase 178 U/L Lactic Acid Level 3.6 mmol/L MDM Medical Decision Making Medical Screen Exam Complete: Yes Emergency Medical Condition: Yes Medical Record Reviewed: Yes Interpretation(s) Last Impressions Abdomen/Pelvis CT 06/28/17 0038 Signed Impressions: Service Date/Time: Wednesday, June 28, 2017 01:10 - CONCLUSION: 1. The liver remains cirrhotic in appearance with no focal lesion. 2. Mild splenomegaly again noted. 3. 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 4. Small bilateral pleural effusions are noted right greater the left. Steve Jones MD Chest X-Ray 06/27/171 Signed Impressions: Service Date/Time: Tuesday, June 27, 2017 22:33 - CONCLUSION: Small bilateral pleural effusions stable from prior. No focal infiltrates seen. Ezekiel Ritter MD Differential Diagnosis Dehydration, versus electrolyte derangements, versus acute coronary syndrome, versus A. fib with RVR related to inability to keep down medication Narrative Course During the course of the patients emergency department visit, the patients history, examination, and differential diagnosis were reviewed with the patient. The patient had IV access obtained and blood work sent for analysis. The patient was placed on a groundwater monitoring technician with oximetry and blood pressure monitoring. An ECG was done on arrival. The patient's ECG reveals atrial fibrillation with RVR, heart rate of 126, nonspecific ST-T wave abnormalities, no acute ST segment elevation is noted. QRS duration 74 ms, QTC is 339 ms. The patient was initially provided normal saline a 500 mL bolus 1, Zofran 4 mg IV, Cardizem 20 mg IV followed by a Cardizem drip. The patients laboratory studies were reviewed and remarkable for a white count of 14.6, hemoglobin 11, platelets 138 with 81.2 neutrophils, lymphocytes 7.4, monocytes 10.3. CMP is remarkable for BUN of 22, creatinine 1.51, glucose 162, magnesium 1.3, AST 49, CPK 80, troponin I less than 0.02, C-reactive protein less than 0.29, BNP 648, lipase 178, PT 12.9, INR 1.2, PTT 27.3 Radiology studies were reviewed and remarkable for a chest x-ray that shows small bilateral pleural effusions, stable compared to previously, no focal infiltrate. CT scan of the abdomen and pelvis shows that the liver remains cirrhotic in appearance with no focal lesions, mild splenomegaly, multiple varices, small bilateral pleural effusions, right greater than the left. The patient will be judiciously hydrated due to her history of congestive heart failure. The patient will be admitted to the hospital for A. fib with RVR. The patients results were discussed with the patient, including the plan of care. I explained that further testing and/ or monitoring is indicated based on the patients history, examination, and/ or laboratory findings. Therefore, I recommended admission for additional evaluation. The patient expressed understanding and was agreeable with this plan. The patient was admitted to the hospital in stable condition and sent to a bed under the care of Dr. Islas. Sepsis Criteria SIRS Criteria (2 or more): Heart rate over 90, WBC > 04591, < 4000 or > 10% bands Physician Communication Physician Communication The patient's case is discussed with Dr. Islas who did agree to admit the patient for further evaluation and treatment at this time. Admitting Information Admitting Physician Requests: Essie Puente MD Jun 27, 2017 22:39
[2017-06-27] MEDS ORDERED: ONDANSETRON HCL 4 MG/2 ML VIAL IV PUSH ONE (22:45)
[2017-06-27] MEDS ORDERED: SODIUM CHLORID 0.9% 500 ML INJ 500 ML IV ONE (22:45)
--- NOTE | 2017-06-27 22:58 | RADRPT ---
EXAM DATE/TIME: 06/27/2017 22:33 [facility] COMPARISON: CT PULMONARY ANGIOGRAM, May 11, 2017, 18:23. CHEST SINGLE AP, May 10, 2017, 9:20. INDICATIONS : Shortness of breath. MEDICAL HISTORY : None. SURGICAL HISTORY : None. ENCOUNTER: Initial ACUITY: 1 day PAIN SCORE: 0/10 LOCATION: Bilateral chest FINDINGS: There is mild blunting of the costophrenic angles on both sides, similar to prior chest x-ray. No fo charli areas of consolidation. The heart is normal size. Bipolar cardiac pacer leads unchanged. CONCLUSION: Small bilateral pleural effusions stable from prior. No focal infiltrates seen. Ezekiel Ritter MD on June 27, 2017 at 22:55 Board Certified Radiologist. This report was verified electronically.
[2017-06-27] MEDS ORDERED: SODIUM CHLORIDE 0.9% FLUSH 10 ML FLUSH IVF PRN (23:15)
[2017-06-27] MEDS ORDERED: DILTIAZEM HCL 25 MG/5 ML VIAL IV ONE (23:15)
[2017-06-27] MEDS ORDERED: DILTIAZEM INJ 125 MG in SODIUM CHLORIDE 0.9% INJ 100 ML IV SCH (23:15)
[2017-06-27 23:21] VITALS: O2SAT 93
[2017-06-27 23:34] VITALS: BP 129/78; PULSE 129; RESP 16; O2SAT 96
[2017-06-27 23:57] LABS: AUTOMATED NEUTROPHIL # 11.9 TH/MM3 (1.8-7.7); BASOPHIL # 0.1 TH/MM3 (0-0.2); BASOPHIL % 0.6 % (0.0-2.0); EOSINOPHIL # 0.1 TH/MM3 (0-0.4); EOSINOPHIL % 0.5 % (0.0-4.0); HEMO FLAGS DIFF FINAL; LYMPH % 7.4 % (9.0-44.0); LYMPHOCYTE # 1.1 TH/MM3 (1.0-4.8); MEAN CELL VOLUME 89.1 FL (80.0-100.0); MEAN CORPUSCULAR HEMOGLOBIN 28.9 PG (27.0-34.0); MEAN CORPUSCULAR HGB CONC 32.5 % (32.0-36.0); MONO % 10.3 % (0.0-8.0); NEUT % 81.2 % (16.0-70.0); PLATELET COUNT 138 TH/MM3 (150-450); RED BLOOD COUNT 3.82 MIL/MM3 (4.00-5.30); WHITE BLOOD COUNT 14.6 TH/MM3 (4.0-11.0)
[2017-06-28] VITALS (22 sets, daily range): BP systolic 111–141; BP diastolic 57–89; PULSE 60–138; RESP 16–41; TEMP 97.6–98.5; O2SAT 92–98
[2017-06-28 00:06] LABS: APTT (PATIENT) 27.3 SEC (24.3-30.1); INTERNATIONAL NORMALIZED RATIO 1.2 RATIO; PROTHROMBIN TIME - PATIENT 12.9 SEC (9.8-11.6)
[2017-06-28 00:25] LABS: ALKALINE PHOSPHATASE 73 U/L (45-117); ALT (GPT) 40 U/L (10-53); ANION GAP 12 MEQ/L (5-15); AST (GOT) 49 U/L (15-37); BICARBONATE 26.8 MEQ/L (21.0-32.0); BLOOD UREA NITROGEN 22 MG/DL (7-18); CHLORIDE 101 MEQ/L (98-107); GLOMERULAR FILTRATION RATE 33 ML/MIN (>89); MAGNESIUM 1.3 MG/DL (1.5-2.5); SODIUM (NA) 140 MEQ/L (136-145)
[2017-06-28 00:44] LABS: CREATINE KINASE 80 U/L (26-192); POTASSIUM 4.3 MEQ/L (3.5-5.1)
[2017-06-28] MEDS ORDERED: IODIXANOL 320 MG/ML 10 ML VIAL (for Rad CT) IV ONE (01:13)
[2017-06-28] MEDS ORDERED: SODIUM CHLORID 0.9% 500 ML INJ 500 ML IV ONE (01:45)
--- NOTE | 2017-06-28 02:03 | RADRPT ---
EXAM DATE/TIME: 06/28/2017 01:10 [facility] COMPARISON: CT ABDOMEN & PELVIS W CONTRAST, November 13, 2016, 13:08. INDICATIONS : Abdominal pain, vomiting and diarrhea today. IV CONTRAST: 45 cc Visipaque (iodixanol) IV ORAL CONTRAST: No oral contrast ingested. RADIATION DOSE: 4.84 CTDIvol (mGy) MEDICAL HISTORY : Gastroesophageal reflux disease. Congestive heart failure. Myocardial infarction. CVA. Hypertension. Diabetes. Hepatitis C. SURGICAL HISTORY : Cholecystectomy. Hysterectomy. Pacemaker. Cardiac stent. ENCOUNTER: Initial ACUITY: 1 day PAIN SCALE: 3/10 LOCATION: Bilateral abdomen TECHNIQUE: Volumetric scanning of the abdomen and pelvis was performed. Using automated exposure control and ad justment of the mA and/or kV according to patient size, radiation dose was kept as low as reasonably achievable to obtain optimal diagnostic quality images. DICOM format image data is available electro nically for review and comparison. FINDINGS: LOWER LUNGS: There are small bilateral pleural effusions right greater the left. LIVER: The liver remains cirrhotic in appearance with nodular contour. There is no focal mass. The patient i s status post cholecystectomy. The portal vein remains patent. SPLEEN: The spleen remains mildly prominent. There are multiple splenic varices again noted. PANCREAS: Within normal limits. KIDNEYS: Normal in size and shape. There is no solid mass, stone or hydronephrosis. Small simple cysts are ag ain noted. ADRENAL GLANDS: Within normal limits. VASCULAR: There is no aortic aneurysm. BOWEL/MESENTERY: No oral contrast was given limiting sensitivity. There are multiple varices along the gastroesophagea l junction. The stomach, small bowel, and colon demonstrate no acute abnormality. There is no free i ntraperitoneal air or fluid. ABDOMINAL WALL: Within normal limits. RETROPERITONEUM: There is no lymphadenopathy. BLADDER: No wall thickening or mass. REPRODUCTIVE: Within normal limits. INGUINAL: There is no lymphadenopathy or hernia. MUSCULOSKELETAL: Osteopenia, degenerative changes and scoliosis are again noted. CONCLUSION: 1. The liver remains cirrhotic in appearance with no focal lesion. 2. Mild splenomegaly again noted. 3. 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 4. Small bilateral pleural effusions are noted right greater the left. Steve Jones MD on June 28, 2017 at 1:55 Board Certified Radiologist. This report was verified electronically.
[2017-06-28] MEDS ORDERED: NALOXONE HCL 0.4 MG/ML AMP IV PRN (02:30)
[2017-06-28] MEDS ORDERED: SODIUM CHLORIDE 0.9% FLUSH 10 ML FLUSH IV FLUSH PRN (02:30)
[2017-06-28] MEDS ORDERED: ONDANSETRON HCL 4 MG/2 ML VIAL IVP PRN (02:30)
--- NOTE | 2017-06-28 03:09 | HHI.HP ---
[facility] BELINDA [facility] Admission Diagnosis Dehydration from n/v/d, afib with rvr Diagnoses: Travel History International Travel<30 Days: No Contact w/Intl Traveler <30 Da: No Traveled to Known Affected Are: No History of Present Illness History from patient, ER physician communication, and review of medical records. Patient is known to me from her prior hospitalization on April 29, 2017, and March 10, 2017. Patient is only Kyrgyz-speaking and daughter at the bedside who lives with her translates for her with her permission. However both patient and her daughter are quite poor historians. Daughter stated that she and her brought patient to the hospital because on routine vital check at home, she noted her mom to be having heart rate of 151. She also reports of nausea vomiting and diarrhea which started in the past 24 hours. She reports that the vomiting was several times at least 10 times a day. Similarly for diarrhea as well. However denies any blood in her stool or in her urine. Denies any coffee- ground color vomits/melena/hematochezia. Reports of associated abdominal pains which are generalized. Denies fever. Denies cough/urinary burning or pain on urination or frequent urination. Reports that the stool is extremely foul smiling which is not her normal. Patient has been home for the past 1 month or so. She has frequent hospitalizations since January. Daughter also reported that her sister is sick with similar symptoms and was in hospital for diarrhea. Daughter stated the patient's lower extremities have been swelling up in the past month and they had gone to the pulmonary doctor recently who told her to increase the water pill to twice a day dose for the next 4 days. She stated that they did that regimen and it had worked. However after a few days, her legs were swelling again and they had seen her primary care doctor who gave her the same regimen with a water pill. She stated she took the water pills twice a day for 4 days he can and felt much better now. Denies shortness of breath. Denies chest pains. Denies dizziness or syncopal episodes. Review of Systems Except as stated in HPI: all other systems reviewed are Neg Past Family Social History Past Medical History htn dm chf - s/p aicd in 2013 cad - stent, cabg afib copd- on home oxygen as needed hepatitis c cirrhosis varices hypothyroidism Past Surgical History cabg stents in heart 2009 cholecystectomy hysterectomy Allergies: Coded Allergies: Penicillin (Verified Allergy, Severe, Anaphylaxis, 06/27/17) Family History father- cirrhosis of liver sister- breast ca daughter- ovarian ca Social History never smoked no etoh or drugs Physical Exam Vital Signs Vital Signs Date Time Temp Pulse Resp B/P Pulse Ox O2 Delivery O2 Flow Rate FiO2 06/28/17 02:47 94 16 120/68 94 Nasal Cannula 2 06/28/17 01:19 108 18 133/89 92 Nasal Cannula 2 06/28/17 00:46 138 18 141/78 98 Nasal Cannula 2 06/27/17 23:34 129 16 129/78 96 Nasal Cannula 2 06/27/17 23:21 93 Room Air 06/27/17 22:04 98.3 168 20 160/107 93 06/27/17 21:57 98.4 167 18 155/88 94 Room Air Physical Exam GENERAL: This is a well-nourished, well-developed patient, in no apparent distress. SKIN: No rashes, ecchymoses or lesions. Cool and dry. HEAD: Atraumatic. Normocephalic. No temporal or scalp tenderness. EYES: No scleral icterus. No injection or drainage. ENT: Nose without bleeding, purulent drainage or septal hematoma. Airway patent. NECK: Trachea midline. No JVD CARDIOVASCULAR: Regular rate and rhythm without murmurs, gallops, or rubs. RESPIRATORY: Clear to auscultation. Breath sounds equal bilaterally. No wheezes , rales, or rhonchi. GASTROINTESTINAL: Abdomen soft, non-tender, nondistended. No guarding. MUSCULOSKELETAL: Extremities without clubbing, cyanosis. No calf tenderness. Bilateral lower extremity 2+ pitting edema NEUROLOGICAL: Awake and alert.Motor and sensory grossly within normal limits. Normal speech. Laboratory Laboratory Tests Test 06/27/17 06/28/17 22:40 00:35 White Blood Count 14.6 Red Blood Count 3.82 Hemoglobin 11.0 Hematocrit 34.0 Mean Corpuscular Volume 89.1 Mean Corpuscular Hemoglobin 28.9 Mean Corpuscular Hemoglobin 32.5 Concent Red Cell Distribution Width 16.0 Platelet Count 138 Mean Platelet Volume 10.3 Neutrophils (%) (Auto) 81.2 Lymphocytes (%) (Auto) 7.4 Monocytes (%) (Auto) 10.3 Eosinophils (%) (Auto) 0.5 Basophils (%) (Auto) 0.6 Neutrophils # (Auto) 11.9 Lymphocytes # (Auto) 1.1 Monocytes # (Auto) 1.5 Eosinophils # (Auto) 0.1 Basophils # (Auto) 0.1 CBC Comment DIFF FINAL Differential Comment Prothrombin Time 12.9 Prothromb Time International 1.2 Ratio Activated Partial 27.3 Thromboplast Time Sodium Level 140 Potassium Level 4.3 Chloride Level 101 Carbon Dioxide Level 26.8 Anion Gap 12 Blood Urea Nitrogen 22 Creatinine 1.51 Estimat Glomerular Filtration 33 Rate Random Glucose 162 Calcium Level 8.6 Magnesium Level 1.3 Total Bilirubin 1.0 Aspartate Amino Transf 49 (AST/SGOT) Alanine Aminotransferase 40 (ALT/SGPT) Alkaline Phosphatase 73 Total Creatine Kinase 80 Troponin I LESS THAN 0.02 C-Reactive Protein LESS THAN 0.29 B-Type Natriuretic Peptide 648 Total Protein 9.4 Albumin 3.6 Lipase 178 Lactic Acid Level 3.6 Result Diagram: 06/27/17223906/27/172239 Imaging Last 48 hours Impressions Abdomen/Pelvis CT 06/28/17 0038 Signed Impressions: Service Date/Time: Wednesday, June 28, 2017 01:10 - CONCLUSION: 1. The liver remains cirrhotic in appearance with no focal lesion. 2. Mild splenomegaly again noted. 3. 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 4. Small bilateral pleural effusions are noted right greater the left. Steve Jones MD Chest X-Ray 06/27/172230 Signed Impressions: Service Date/Time: Tuesday, June 27, 2017 22:33 - CONCLUSION: Small bilateral pleural effusions stable from prior. No focal infiltrates seen. Ezekiel Ritter MD Assessment and Plan Assessment and Plan Impression: A. fib with RVRlikely secondary to dehydration. Patient was on increased dosing of Lasix within the past 1 month due to peripheral edema. And now currently having nausea/vomiting/diarrhea in the past 24 hours. Nausea/vomiting/diarrheain a patient with recent hospitalizations. We'll need to rule out C. difficile. Leukocytosis with left shiftlikely due to C. difficile. Lactic acid acidosisthis patient has several reasons for this. dehydration/ metformin use/CHF. Doubt sepsis. Chronic anticoagulationon ELIQUIS htn dm chf - s/p aicd in 2012 cad - stent, cabg afib copd- on home oxygen as needed hepatitis c cirrhosis varices hypothyroidism Plan: Patient was started on Cardizem drip in ER. The heart rate currently none is somewhat controlled around 100. Will hydrate patient orally since she has significant congestive heart failure and it is a fine line between hydration and pulmonary edema. We'll hold off on her diuretics. I'll monitor for episodes of nausea/vomiting/diarrhea while in hospital. Would consider gentle hydration if patient truly has continued diarrhea or vomiting in the hospital. Send stool for C. difficile when she started making bowel movements. Hold off on antibiotics. Will monitor her fingersticks and cover with sliding scale coverage. Hold metformin. Hold oral hypoglycemics. Again, this patient should not be on metformin because of her CHF history and lactic acid acidosis. Also would hold ELIQUIS. Consult patient's horticulture instructor to weigh in on the disposition of anticoagulation. This is an elderly lady with liver cirrhosis and varices that are visible on CT imaging. Daughter reports the patient does not use a walker at home. Likely she probably should not be on anticoagulation. Resume rest of her home meds per med rec hold ing above meds, MDI, vitamins. DVT prophylaxiswe'll start heparin prophylactic dose if ELIQUI is to be discontinued. GI prophylaxison pantoprazole. Discussed Condition With patient, ER MD, nursing staff Physician Certification 2 Midnight Certification Type: Admission for Inpatient Services Order for Inpatient Services The services are ordered in accordance with Medicare regulations or non- Medicare payer requirements, as applicable. In the case of services not specified as inpatient-only, they are appropriately provided as inpatient services in accordance with the 2-midnight benchmark. Estimated LOS (days): 2 days is the estimated time the patient will need to remain in the hospital, assuming treatment plan goals are met and no additional complications. Post-Hospital Plan: Not yet determined Myrtle Islas MD Jun 28, 2017 03:09
[2017-06-28] MEDS ORDERED: DEXTROSE 50% IN WATER 50 ML VIAL(D50) IV PRN (04:15)
[2017-06-28] MEDS ORDERED: GLUCAGON 1 MG/ML VIAL OTHER PRN (04:15)
[2017-06-28] MEDS ORDERED: RESP: IPRATROPIUM 0.5 MG/2.5 ML NEB NEB PRN (04:15)
[2017-06-28 07:24] LABS: BLOOD, URINE SMALL (NEG); GLUCOSE,URINE NEG (NEG); GRANULAR CAST, URINE 3 /lpf; HYALINE CAST, URINE 2 /lpf (RARE); KETONE, URINE NEG (NEG); NITRITE,URINE NEG (NEG); SQUAMOUS EPITHELIAL CELL URINE 1 /hpf (0-5); TRANSITIONAL EPI CELLS, URINE 1 /hpf; URINE COLOR YELLOW (YELLW/STRAW)
[2017-06-28 07:25] LABS: COMMENT (UR) CULT NOT INDICATED; CULTURE IF INDICATED CULT NOT INDICATED
[2017-06-28] MEDS ORDERED: THIAMINE HCL 100 MG TAB PO ONE (07:45)
[2017-06-28] MEDS: FAMOTIDINE 20 MG TAB PO SCH (08:37)
[2017-06-28] MEDS: LISINOPRIL 5 MG TAB PO SCH (08:37)
[2017-06-28] MEDS: DILTIAZEM HCL 90 MG TAB PO SCH ×3 (08:37→17:05)
[2017-06-28] MEDS: LEVOTHYROXINE SODIUM 125 MCG TAB PO SCH (08:57)
[2017-06-28] MEDS: BUDESONIDE-FORMOTEROL 160/4.5 MCG INHALER INH SCH ×2 (08:57→21:14)
[2017-06-28] MEDS: METOPROLOL TARTRATE 50 MG TAB PO SCH ×3 (08:57→21:12)
[2017-06-28] MEDS: SODIUM CHLORIDE 0.9% FLUSH 10 ML FLUSH IV FLUSH SCH ×2 (09:00→21:00)
[2017-06-28] MEDS ORDERED: PANTOPRAZOLE SODIUM 40 MG VIAL IV PUSH SCH (09:00)
[2017-06-28] MEDS ORDERED: CHLORHEXIDINE GLUCONATE 2 % 1 PACK (2 CLOTHS)(extra cloths) TOPICAL PRN (09:15)
[2017-06-28] MEDS: RESP: IPRATROPIUM 0.5 MG/2.5 ML NEB NEB SCH ×3 (09:20→20:32)
[2017-06-28] MEDS: INSULIN ASPART SUPPLEMENTAL SCALE SQ SCH ×3 (10:47→21:14)
[2017-06-28 12:33] LABS: AUTOMATED NEUTROPHIL # 5.4 TH/MM3 (1.8-7.7); BASOPHIL % 0.5 % (0.0-2.0); EOSINOPHIL % 0.4 % (0.0-4.0); HEMATOCRIT 28.6 % (35.0-46.0); HEMO FLAGS DIFF FINAL; LYMPH % 18.2 % (9.0-44.0); LYMPHOCYTE # 1.4 TH/MM3 (1.0-4.8); MEAN CELL VOLUME 88.7 FL (80.0-100.0); MEAN CORPUSCULAR HGB CONC 33.9 % (32.0-36.0); NEUT % 68.9 % (16.0-70.0); PLATELET COUNT 104 TH/MM3 (150-450); RED BLOOD COUNT 3.22 MIL/MM3 (4.00-5.30); RED CELL DISTRIBUTION WIDTH 15.9 % (11.6-17.2); WHITE BLOOD COUNT 7.9 TH/MM3 (4.0-11.0)
[2017-06-28 13:10] LABS: ANION GAP 14 MEQ/L (5-15); AST (GOT) 35 U/L (15-37); BICARBONATE 23.3 MEQ/L (21.0-32.0); BLOOD UREA NITROGEN 29 MG/DL (7-18); CHLORIDE 102 MEQ/L (98-107); GLOMERULAR FILTRATION RATE 29 ML/MIN (>89); POTASSIUM 4.6 MEQ/L (3.5-5.1); SODIUM (NA) 139 MEQ/L (136-145)
[2017-06-28 13:16] LABS: ALKALINE PHOSPHATASE 52 U/L (45-117); ALT (GPT) 32 U/L (10-53); TOTAL BILIRUBIN ADULT 0.8 MG/DL (0.2-1.0)
--- NOTE | 2017-06-28 15:02 | EKG ---
Date Performed: 06/27/2017 Time Performed: 23:16:01 PTAGE: 82 years EKG: ATRIAL FIBRILLATION WITH With rapid ventricular response ST DEVIATION AND MODERATE T-WAVE A BNORMALITY, CONSIDER LATERAL ISCHEMIA Compared to prior tracing no significant change ABNORMAL ECG PREVIOUS TRACING : 05/11/2017 09.49 DOCTOR: Jimmy Rene Interpretating Date/Time 06/28/2017 15:02:34
--- NOTE | 2017-06-28 15:06 | PD.CONS ---
HPI Service Cardiology Physicians Consult Requested By Dr Islas Reason for Consult afib rvr Primary Care Physician BELINDA Lopez History of Present Illness The patient is an 82 year old female known to our practice with cardiac history of atrial fibrillation, chronic diastolic CHF, pacemaker, ASHD, PAD, diabetes, HLD and hypothyroidism. Other notable history liver cirrhosis with thrombocytopenia. The patient presented to the hospital with tachycardia noted on BP cuff with associated diarrhea, nausea and vomiting. The patient denies chest pain or abdominal pain. She was recently treated with additional torsemide for recurrent bilateral lower extremity edema. She was treated with cardizem gtt and is currently rate controlled. She denies further episodes of vomiting or diarrhea since admission. (Rosamaria Lowry) Review of Systems ROS Limitations: Language Barrier Cardiovascular: COMPLAINS OF: Tachycardia, DENIES: See HPI, Chest pain, Palpitations, Syncope Gastrointestinal: COMPLAINS OF: Vomiting, Change in bowel habits (Rosamaria Lowry) Past Family Social History Allergies: Coded Allergies: Penicillin (Verified Allergy, Severe, Anaphylaxis, 06/27/17) Past Medical History ASHD Atrial fibrillation Diastolic CHF PPM 2012 PAD Diabetes HLD hypothyroidism liver cirrhosis with varices recurrent thrombocytopenia Past Surgical History cath 2013-medical management cath 2009 stenting PPM 2012 Reported Medications Reported Meds & Active Scripts Active Senna Lax (Sennosides) 8.6 Mg Tab 17.2 Mg PO DAILY Reported Furosemide 20 Mg Tab 20 Mg PO BID Torsemide 10 Mg Tab 10 Mg PO DAILY Metoprolol Succinate ER 24 HR (Metoprolol Succinate) 50 Mg Tab 50 Mg PO TID Lisinopril 5 Mg Tab 5 Mg PO DAILY Diltiazem (Diltiazem HCl) 90 Mg Tab 180 Mg PO TID Glimepiride 1 Mg Tab 1 Mg PO BID Take with breakfast or first main meal Diprolene Topical (Betamethasone Dipropionate Aug Topical) 0.05% Oint 1 Applic TOPICAL BID Ferrous Gluconate 325 Mg Tab 325 Mg PO TID Potassium Chloride ER (Potassium Chloride) 10 Meq Cap 10 Meq PO DAILY Xopenex Hfa 15 GM Inh (Levalbuterol 15 GM Inh) 45 Mcg/Act Aer 45 Mcg INH Q6HR Shake well before using. (1 puff = 45 mcg) Janumet (Sitagliptin-Metformin) 50-1,000 Mg Tab 1 Tab PO BID Brovana Neb (Arformoterol Neb) 15 Mcg/2 Ml Vial 1 Nebule NEB BID Maintenance treatment of bronchoconstriction in COPD. Alendronate (Alendronate Sodium) 70 Mg Tab 70 Mg PO Q7D Proair Hfa 8.5 GM Inh (Albuterol Sulfate) 90 Mcg/Act Aer 1 Puff INH BID PRN 108 mcg/actuation Eliquis (Apixaban) 2.5 Mg Tab 2.5 Mg PO BID Zantac (Ranitidine HCl) 150 Mg Tab 150 Mg PO DAILY Levothyroxine (Levothyroxine Sodium) 125 Mcg Tab 125 Mcg PO DAILY Symbicort Inh (Budesonide/Formoterol Fumarate) 160-4.5 Mcg/Act Aero 2 Puff INH BID Active Ordered Medications Current Medications Medications (Trade) Dose Ordered Sig/Marlon Route Start Time Stop Time Status Last Admin (Cardizem Inj/NS Inj) 125 ml @ 0 mls/hr TITRATE IV 06/27/17 23:15 06/28/17 00:43 (NS Flush) 2 ml UNSCH PRN IVF 06/27/17 23:15 (NS Flush) 2 ml UNSCH PRN IV FLUSH 06/28/17 02:30 (NS Flush) 2 ml BID IV FLUSH 06/28/17 09:00 06/28/17 09:00 (Zofran Inj) 4 mg Q6H PRN IVP 06/28/17 02:30 (Narcan Inj) 0.4 mg UNSCH PRN IV 06/28/17 02:30 (Symbicort 160-4.5 Inh) 2 puff BID INH 06/28/17 09:00 06/28/17 08:57 (Cardizem) 180 mg TID PO 06/28/17 09:00 06/28/17 13:36 (Synthroid) 125 mcg DAILY@06 PO 06/28/17 06:00 06/28/17 08:57 (Prinivil) 5 mg DAILY PO 06/28/17 09:00 06/28/17 08:37 (Lopressor) 50 mg Q8H PO 06/28/17 06:00 06/28/17 13:36 (Pepcid) 20 mg DAILY PO 06/28/17 09:00 06/28/17 08:37 (D50w (Vial) Inj) 50 ml UNSCH PRN IV 06/28/17 04:15 (Glucagon Inj) 1 mg UNSCH PRN OTHER 06/28/17 04:15 (Chlorhexidine 2% Cloth) 3 pack DAILY@04 TOPICAL 06/29/17 04:00 07/03/17 04:01 (Chlorhexidine 2% Cloth) 3 pack UNSCH PRN TOPICAL 06/28/17 09:15 07/03/17 09:08 Miscellaneous Information Patient in critical care unit? Ass... Q361D .XX 06/28/17 09:15 06/28/17 09:15 (Eliquis) 2.5 mg BID PO 06/28/17 21:00 Family History non contributory Social History non smoker, no ETOH (Rosamaria Lowry) Physical Exam Vital Signs Vital Signs Date Time Temp Pulse Resp B/P Pulse Ox O2 Delivery O2 Flow Rate FiO2 06/28/17 12:00 60 06/28/17 12:00 97.6 60 27 111/57 94 06/28/17 10:00 60 06/28/17 09:24 95 Nasal Cannula 2.00 06/28/17 08:00 98.0 78 16 133/67 94 06/28/17 08:00 78 06/28/17 06:07 77 16 124/67 94 Nasal Cannula 2 06/28/17 05:17 81 16 129/63 92 Nasal Cannula 2 06/28/17 02:47 94 16 120/68 94 Nasal Cannula 2 06/28/17 01:19 108 18 133/89 92 Nasal Cannula 2 06/28/17 00:46 138 18 141/78 98 Nasal Cannula 2 06/27/17 23:34 129 16 129/78 96 Nasal Cannula 2 06/27/17 23:21 93 Room Air 06/27/17 22:04 98.3 168 20 160/107 93 06/27/17 21:57 98.4 167 18 155/88 94 Room Air Physical Exam GENERAL: Elderly female, daughter at bedside to interpret SKIN: Warm and dry. HEAD: Atraumatic. Normocephalic. EYES: Pupils equal and round. No scleral icterus. No injection or drainage. ENT: No nasal bleeding or discharge. Mucous membranes pink and moist. NECK: Trachea midline. CARDIOVASCULAR: Left chest PPM, irreg irreg RESPIRATORY: No accessory muscle use. Breath sounds equal bilaterally. Diminished bases GASTROINTESTINAL: Abdomen soft, non-tender, nondistended. MUSCULOSKELETAL: Extremities without clubbing, cyanosis, or edema. No obvious deformities. NEUROLOGICAL: Awake and alert. No obvious cranial nerve deficits. Motor grossly within normal limits. Five out of 5 muscle strength in the arms and legs. Normal speech. PSYCHIATRIC: Appropriate mood and affect; insight and judgment normal. Laboratory Laboratory Tests Test 06/27/17 06/28/17 06/28/17 06/28/17 22:40 00:35 06:35 11:22 White Blood Count 14.6 Red Blood Count 3.82 Hemoglobin 11.0 Hematocrit 34.0 Mean Corpuscular Volume 89.1 Mean Corpuscular Hemoglobin 28.9 Mean Corpuscular Hemoglobin 32.5 Concent Red Cell Distribution Width 16.0 Platelet Count 138 Mean Platelet Volume 10.3 Neutrophils (%) (Auto) 81.2 Lymphocytes (%) (Auto) 7.4 Monocytes (%) (Auto) 10.3 Eosinophils (%) (Auto) 0.5 Basophils (%) (Auto) 0.6 Neutrophils # (Auto) 11.9 Lymphocytes # (Auto) 1.1 Monocytes # (Auto) 1.5 Eosinophils # (Auto) 0.1 Basophils # (Auto) 0.1 CBC Comment DIFF FINAL Differential Comment Prothrombin Time 12.9 Prothromb Time International 1.2 Ratio Activated Partial 27.3 Thromboplast Time Sodium Level 140 139 Potassium Level 4.3 4.6 Chloride Level 101 102 Carbon Dioxide Level 26.8 23.3 Anion Gap 12 14 Blood Urea Nitrogen 22 29 Creatinine 1.51 1.69 Estimat Glomerular Filtration 33 29 Rate Random Glucose 162 179 Calcium Level 8.6 8.1 Magnesium Level 1.3 Total Bilirubin 1.0 0.8 Aspartate Amino Transf 49 35 (AST/SGOT) Alanine Aminotransferase 40 32 (ALT/SGPT) Alkaline Phosphatase 73 52 Total Creatine Kinase 80 Troponin I LESS THAN 0.02 C-Reactive Protein LESS THAN 0.29 B-Type Natriuretic Peptide 648 Total Protein 9.4 8.0 Albumin 3.6 3.0 Lipase 178 Lactic Acid Level 3.6 Urine Color YELLOW Urine Turbidity CLEAR Urine pH 6.0 Urine Specific [place] GREATER THAN 1.050 Urine Protein 30 Urine Glucose (UA) NEG Urine Ketones NEG Urine Occult Blood SMALL Urine Nitrite NEG Urine Bilirubin NEG Urine Urobilinogen LESS THAN 2.0 Urine Leukocyte Esterase NEG Urine RBC 2 Urine WBC 3 Urine Squamous Epithelial 1 Cells Urine Transitional Epithelial 1 Cells Urine Hyaline Casts 2 Urine Granular Casts 3 Microscopic Urinalysis Comment CULT NOT INDICATED Test 06/28/17 12:22 White Blood Count 7.9 Red Blood Count 3.22 Hemoglobin 9.7 Hematocrit 28.6 Mean Corpuscular Volume 88.7 Mean Corpuscular Hemoglobin 30.0 Mean Corpuscular Hemoglobin 33.9 Concent Red Cell Distribution Width 15.9 Platelet Count 104 Mean Platelet Volume 9.7 Neutrophils (%) (Auto) 68.9 Lymphocytes (%) (Auto) 18.2 Monocytes (%) (Auto) 12.0 Eosinophils (%) (Auto) 0.4 Basophils (%) (Auto) 0.5 Neutrophils # (Auto) 5.4 Lymphocytes # (Auto) 1.4 Monocytes # (Auto) 1.0 Eosinophils # (Auto) 0.0 Basophils # (Auto) 0.0 CBC Comment DIFF FINAL Differential Comment Lactic Acid Level 4.6 (Rosamaria Lowry) Result Diagram: 06/28/17 1222 06/28/17 1122 Imaging Last 72 hours Impressions Abdomen/Pelvis CT 06/28/17 0038 Signed Impressions: Service Date/Time: Wednesday, June 28, 2017 01:10 - CONCLUSION: 1. The liver remains cirrhotic in appearance with no focal lesion. 2. Mild splenomegaly again noted. 3. 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 4. Small bilateral pleural effusions are noted right greater the left. Steve Jones MD Chest X-Ray 06/27/17 2231 Signed Impressions: Service Date/Time: Tuesday, June 27, 2017 22:33 - CONCLUSION: Small bilateral pleural effusions stable from prior. No focal infiltrates seen. Ezekiel Ritter MD (Rosamaria Lowry) Assessment and Plan Assessment and Plan Chronic atrial fibrillation. CHADSVAC 7. Stroke risk 9.6% in the absence of thromboprophylaxis. Afib RVR on admission likely due to dehydration Chronic diastolic CHF exacerbation ASHD history PPM base rate 60 bpm PAD Diabetes HLD PLAN: Transition off cardizem IV to PO. Afib RVR exacerbated by recent GI illness Will resume daily diuresis tomorrow We continue to monitor risk vs benefit of oral AC. The patient was seen and evaluated by Dr Day. (Rosamaria Lowry) Assessment and Plan The exam, history, and the medical decision-making described in the above note were completed with the assistance of the mid-level provider. I reviewed and agree with the findings presented. I attest that I had a [id number] encounter with the patient on the same day, and personally performed and documented my assessment and findings in the medical record. speaks Thai overall slow improvement, HR better (Chuck Day MD) Rosamaria Lowry Jun 28, 2017 15:06 Chuck Day MD Jun 29, 2017 14:26
[2017-06-28] MEDS ORDERED: MAGNESIUM SULFATE 1 GM PREMIX 100 ML IV ONE (16:00)
[2017-06-28] MEDS ORDERED: FUROSEMIDE 40 MG TAB PO ONE (16:15)
[2017-06-28] MEDS: APIXABAN 2.5 MG TABLET PO SCH (21:12)
[2017-06-29] VITALS (30 sets, daily range): BP systolic 105–130; BP diastolic 62–78; PULSE 63–87; RESP 14–16; TEMP 97.7–98.4; O2SAT 95–98
[2017-06-29] MEDS: RESP: IPRATROPIUM 0.5 MG/2.5 ML NEB NEB SCH ×4 (03:55→22:00)
[2017-06-29] MEDS: CHLORHEXIDINE GLUCONATE 2 % 1 PACK (2 CLOTHS)(taper/protocol) TOPICAL SCH (04:00)
[2017-06-29] MEDS: LEVOTHYROXINE SODIUM 125 MCG TAB PO SCH (05:39)
[2017-06-29] MEDS: METOPROLOL TARTRATE 50 MG TAB PO SCH ×3 (05:39→21:36)
[2017-06-29 05:48] LABS: BASOPHIL % 0.3 % (0.0-2.0); EOSINOPHIL # 0.1 TH/MM3 (0-0.4); EOSINOPHIL % 0.9 % (0.0-4.0); HEMATOCRIT 30.3 % (35.0-46.0); HEMO FLAGS DIFF FINAL; LYMPH % 21.2 % (9.0-44.0); LYMPHOCYTE # 1.6 TH/MM3 (1.0-4.8); MEAN CELL VOLUME 89.3 FL (80.0-100.0); MEAN CORPUSCULAR HEMOGLOBIN 29.7 PG (27.0-34.0); MEAN CORPUSCULAR HGB CONC 33.3 % (32.0-36.0); MONO % 12.5 % (0.0-8.0); NEUT % 65.1 % (16.0-70.0); PLATELET COUNT 105 TH/MM3 (150-450); RED BLOOD COUNT 3.39 MIL/MM3 (4.00-5.30); WHITE BLOOD COUNT 7.7 TH/MM3 (4.0-11.0)
[2017-06-29] MEDS: INSULIN ASPART SUPPLEMENTAL SCALE SQ SCH ×4 (06:05→21:00)
[2017-06-29 06:16] LABS: ALT (GPT) 33 U/L (10-53); ANION GAP 9 MEQ/L (5-15); AST (GOT) 35 U/L (15-37); BICARBONATE 27.6 MEQ/L (21.0-32.0); BLOOD UREA NITROGEN 37 MG/DL (7-18); CHLORIDE 101 MEQ/L (98-107); GLOMERULAR FILTRATION RATE 23 ML/MIN (>89); POTASSIUM 4.4 MEQ/L (3.5-5.1); SODIUM (NA) 138 MEQ/L (136-145)
[2017-06-29 06:18] LABS: ALKALINE PHOSPHATASE 60 U/L (45-117); TOTAL BILIRUBIN ADULT 0.7 MG/DL (0.2-1.0)
[2017-06-29] MEDS: LISINOPRIL 5 MG TAB PO SCH (08:21)
[2017-06-29] MEDS: FAMOTIDINE 20 MG TAB PO SCH (08:21)
[2017-06-29] MEDS: SODIUM CHLORIDE 0.9% FLUSH 10 ML FLUSH IV FLUSH SCH ×2 (08:21→21:37)
[2017-06-29] MEDS: DILTIAZEM HCL 90 MG TAB PO SCH ×3 (08:21→17:25)
[2017-06-29] MEDS: APIXABAN 2.5 MG TABLET PO SCH ×2 (08:21→21:36)
[2017-06-29] MEDS: BUDESONIDE-FORMOTEROL 160/4.5 MCG INHALER INH SCH ×2 (08:23→21:00)
--- NOTE | 2017-06-29 09:53 | HHI.PR ---
Subjective Remarks Patient seen this morning around 11 AM. Says she is feeling all right. Denies any chest pain or shortness of breath. Denies any nausea or vomiting. Objective Vital Signs Date Time Temp Pulse Resp B/P Pulse Ox O2 Delivery O2 Flow Rate FiO2 06/29/17 09:32 80 06/29/17 09:03 95 06/29/17 08:19 77 06/29/17 07:00 82 06/29/17 07:00 98.2 68 115/72 95 06/29/17 06:09 76 06/29/17 05:03 77 06/29/17 04:38 98.4 87 129/78 96 06/29/17 04:00 75 06/29/17 03:56 98 Nasal Cannula 2.00 06/29/17 03:00 72 06/29/17 02:35 98 Nasal Cannula 1.00 06/29/17 02:00 70 06/29/17 01:00 66 06/29/17 00:43 97.7 78 130/69 97 06/29/17 00:00 70 06/28/17 23:00 71 06/28/17 22:40 98.5 73 118/73 94 06/28/17 22:00 70 06/28/17 21:00 70 06/28/17 20:31 95 Nasal Cannula 1.00 06/28/17 18:00 67 34 92 06/28/17 17:00 64 41 93 06/28/17 16:31 62 23 122/57 92 06/28/17 16:00 98.0 60 23 93 06/28/17 15:00 60 25 94 06/28/17 14:00 60 23 93 06/28/17 13:00 60 30 94 06/28/17 12:00 60 06/28/17 12:00 60 27 111/57 94 06/28/17 12:00 97.6 60 27 111/57 94 06/28/17 10:00 60 I/O 06/28/17 06/28/17 06/28/17 06/29/17 06/29/17 06/29/17 07:00 15:00 23:00 07:00 15:00 23:00 Intake Total 400 ml 240 ml Output Total 200 ml 350 ml Balance -200 ml 400 ml -110 ml Intake Oral 400 ml 240 ml Output Urine Total 200 ml 350 ml # Voids 1 Result Diagram: 06/29/17 0434 06/29/17 0434 Imaging Last Impressions Abdomen/Pelvis CT 06/28/17 0038 Signed Impressions: Service Date/Time: Wednesday, June 28, 2017 01:10 - CONCLUSION: 1. The liver remains cirrhotic in appearance with no focal lesion. 2. Mild splenomegaly again noted. 3. 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 4. Small bilateral pleural effusions are noted right greater the left. Steve Jones MD Chest X-Ray 06/27/172230 Signed Impressions: Service Date/Time: Tuesday, June 27, 2017 22:33 - CONCLUSION: Small bilateral pleural effusions stable from prior. No focal infiltrates seen. Ezekiel Ritter MD Objective Remarks GENERAL: patient sitting up in chair. Appears comfortable. SKIN: Warm and dry. HEAD: Normocephalic. EYES: No scleral icterus. No injection or drainage. NECK: Supple, trachea midline. No JVD. CARDIOVASCULAR: Regular rate and rhythm without murmurs, gallops, or rubs. RESPIRATORY: Breath sounds equal bilaterally. No accessory muscle use. GASTROINTESTINAL: Abdomen soft, non-tender, nondistended. MUSCULOSKELETAL: No cyanosis, or edema. BACK: Nontender without obvious deformity. No CVA tenderness. A/P Assessment and Plan ====06/29/17==== //Acute kidney injury. Creatinine increased to 2.0 Hold lisinopril. //CHF exacerbation. Recheck BNP //Atrial fibrillation. Heart rate controlled. Continue diltiazem. Cardiology following. Appreciate assistance. Continue eliquis. Continue to monitor. //Hypertension. Blood pressure supple. Continue medications as ordered. Continue to monitor. //Diabetes mellitus. Continue insulin sliding scale. //DVT prophylaxis. As per cardiology. Discharge Planning possibly discharge tomorrow if creatinine is stable Hussein Collazo MD Jun 29, 2017 09:53
--- NOTE | 2017-06-29 11:39 | PD.CARD.PN ---
Subjective Subjective Remarks HR remained stable. BP stable. Patient feels and looks much better. No CP or SOB. Has some coughing this morning. Objective Medications Current Medications Medications (Trade) Dose Ordered Sig/Marlon Route Start Time Stop Time Status Last Admin (Cardizem Inj/NS Inj) 125 ml @ 0 mls/hr TITRATE IV 06/27/17 23:15 06/28/17 00:43 (NS Flush) 2 ml UNSCH PRN IV FLUSH 06/28/17 02:30 (NS Flush) 2 ml BID IV FLUSH 06/28/17 09:00 06/29/17 08:21 (Zofran Inj) 4 mg Q6H PRN IVP 06/28/17 02:30 (Narcan Inj) 0.4 mg UNSCH PRN IV 06/28/17 02:30 (Symbicort 160-4.5 Inh) 2 puff BID INH 06/28/17 09:00 06/29/17 08:23 (Cardizem) 180 mg TID PO 06/28/17 09:00 06/29/17 08:21 (Synthroid) 125 mcg DAILY@06 PO 06/28/17 06:00 06/29/17 05:39 (Lopressor) 50 mg Q8H PO 06/28/17 06:00 06/29/17 05:39 (Pepcid) 20 mg DAILY PO 06/28/17 09:00 06/29/17 08:21 (D50w (Vial) Inj) 50 ml UNSCH PRN IV 06/28/17 04:15 (Glucagon Inj) 1 mg UNSCH PRN OTHER 06/28/17 04:15 (Chlorhexidine 2% Cloth) 3 pack DAILY@04 TOPICAL 06/29/17 04:00 07/03/17 04:01 (Chlorhexidine 2% Cloth) 3 pack UNSCH PRN TOPICAL 06/28/17 09:15 07/03/17 09:08 Miscellaneous Information Patient in critical care unit? Ass... Q361D .XX 06/28/17 09:15 06/28/17 09:15 (Eliquis) 2.5 mg BID PO 06/28/17 21:00 06/29/17 08:21 Vital Signs / I&O Vital Signs Date Time Temp Pulse Resp B/P Pulse Ox O2 Delivery O2 Flow Rate FiO2 06/29/17 10:31 79 06/29/17 09:32 80 06/29/17 09:03 95 06/29/17 08:19 77 06/29/17 07:00 82 06/29/17 07:00 98.2 68 115/72 95 06/29/17 06:09 76 06/29/17 05:03 77 06/29/17 04:38 98.4 87 129/78 96 06/29/17 04:00 75 06/29/17 03:56 98 Nasal Cannula 2.00 06/29/17 03:00 72 06/29/17 02:35 98 Nasal Cannula 1.00 06/29/17 02:00 70 06/29/17 01:00 66 06/29/17 00:43 97.7 78 130/69 97 06/29/17 00:00 70 06/28/17 23:00 71 06/28/17 22:40 98.5 73 118/73 94 06/28/17 22:00 70 06/28/17 21:00 70 06/28/17 20:31 95 Nasal Cannula 1.00 06/28/17 18:00 67 34 92 06/28/17 17:00 64 41 93 06/28/17 16:31 62 23 122/57 92 06/28/17 16:00 98.0 60 23 93 06/28/17 15:00 60 25 94 06/28/17 14:00 60 23 93 06/28/17 13:00 60 30 94 06/28/17 12:00 60 06/28/17 12:00 60 27 111/57 94 06/28/17 12:00 97.6 60 27 111/57 94 I/O 06/28/17 06/28/17 06/28/17 06/29/17 06/29/17 06/29/17 07:00 15:00 23:00 07:00 15:00 23:00 Intake Total 400 ml 240 ml Output Total 200 ml 350 ml Balance -200 ml 400 ml -110 ml Intake Oral 400 ml 240 ml Output Urine Total 200 ml 350 ml # Voids 1 Physical Exam GENERAL: Elderly female, looks much better compared to yesterday SKIN: Warm and dry. HEAD: Normocephalic. EYES: No scleral icterus. No injection or drainage. NECK: Supple, trachea midline. CARDIOVASCULAR: Irreg irreg. left chest PPM RESPIRATORY: Diminished bases, some rales GASTROINTESTINAL: Abdomen soft, non-tender, nondistended. MUSCULOSKELETAL: No cyanosis, Mild BLE edema BACK: Nontender without obvious deformity. No CVA tenderness. Laboratory Laboratory Tests Test 06/28/17 06/28/17 06/29/17 12:22 19:24 04:34 White Blood Count 7.9 TH/MM3 7.7 TH/MM3 Red Blood Count 3.22 MIL/MM3 3.39 MIL/MM3 Hemoglobin 9.7 GM/DL 10.1 GM/DL Hematocrit 28.6 % 30.3 % Mean Corpuscular Volume 88.7 FL 89.3 FL Mean Corpuscular Hemoglobin 30.0 PG 29.7 PG Mean Corpuscular Hemoglobin 33.9 % 33.3 % Concent Red Cell Distribution Width 15.9 % 16.0 % Platelet Count 104 TH/MM3 105 TH/MM3 Mean Platelet Volume 9.7 FL 9.4 FL Neutrophils (%) (Auto) 68.9 % 65.1 % Lymphocytes (%) (Auto) 18.2 % 21.2 % Monocytes (%) (Auto) 12.0 % 12.5 % Eosinophils (%) (Auto) 0.4 % 0.9 % Basophils (%) (Auto) 0.5 % 0.3 % Neutrophils # (Auto) 5.4 TH/MM3 5.0 TH/MM3 Lymphocytes # (Auto) 1.4 TH/MM3 1.6 TH/MM3 Monocytes # (Auto) 1.0 TH/MM3 1.0 TH/MM3 Eosinophils # (Auto) 0.0 TH/MM3 0.1 TH/MM3 Basophils # (Auto) 0.0 TH/MM3 0.0 TH/MM3 CBC Comment DIFF FINAL DIFF FINAL Differential Comment Lactic Acid Level 4.6 mmol/L 3.9 mmol/L Sodium Level 138 MEQ/L Potassium Level 4.4 MEQ/L Chloride Level 101 MEQ/L Carbon Dioxide Level 27.6 MEQ/L Anion Gap 9 MEQ/L Blood Urea Nitrogen 37 MG/DL Creatinine 2.09 MG/DL Estimat Glomerular Filtration 23 ML/MIN Rate Random Glucose 105 MG/DL Calcium Level 8.5 MG/DL Total Bilirubin 0.7 MG/DL Aspartate Amino Transf 35 U/L (AST/SGOT) Alanine Aminotransferase 33 U/L (ALT/SGPT) Alkaline Phosphatase 60 U/L Total Protein 8.6 GM/DL Albumin 3.1 GM/DL Imaging Last 72 hours Impressions Abdomen/Pelvis CT 06/28/17 0038 Signed Impressions: Service Date/Time: Wednesday, June 28, 2017 01:10 - CONCLUSION: 1. The liver remains cirrhotic in appearance with no focal lesion. 2. Mild splenomegaly again noted. 3. 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 4. Small bilateral pleural effusions are noted right greater the left. Steve Jones MD Chest X-Ray 06/27/171 Signed Impressions: Service Date/Time: Tuesday, June 27, 2017 22:33 - CONCLUSION: Small bilateral pleural effusions stable from prior. No focal infiltrates seen. Ezekiel Ritter MD Assessment and Plan Assessment and Plan Chronic atrial fibrillation. CHADSVAC 7. Stroke risk 9.6% in the absence of thromboprophylaxis. Afib RVR on admission likely due to dehydration Chronic diastolic CHF exacerbation ASHD history PPM base rate 60 bpm PAD Diabetes HLD Infection, seems GI PLAN: Continue diuresis. Advised patient's daughter to give additional torsemide for weight greater than 118 lbs (dry weight 116), increasing lower extremity edema, or increased SOB that is especially worse when trying to lay flat. We continue to monitor risk vs benefit of oral AC. The patient is clear from cardiac standpoint for discharge Assessment and plan discussed with Rosamaria Young Jun 29, 2017 11:39
[2017-06-29] MEDS ORDERED: TORSEMIDE 20 MG TAB PO ONE (13:00)
[2017-06-30] VITALS (27 sets, daily range): BP systolic 111–138; BP diastolic 60–92; PULSE 60–106; RESP 14–20; TEMP 97.8–98.8; O2SAT 95–99
[2017-06-30] MEDS: CHLORHEXIDINE GLUCONATE 2 % 1 PACK (2 CLOTHS)(taper/protocol) TOPICAL SCH ×2 (04:00→20:36)
[2017-06-30] MEDS: RESP: IPRATROPIUM 0.5 MG/2.5 ML NEB NEB SCH ×4 (04:04→19:57)
[2017-06-30] MEDS: METOPROLOL TARTRATE 50 MG TAB PO SCH ×3 (05:46→20:34)
[2017-06-30] MEDS: LEVOTHYROXINE SODIUM 125 MCG TAB PO SCH (05:46)
[2017-06-30 06:21] LABS: BASOPHIL % 0.3 % (0.0-2.0); EOSINOPHIL # 0.1 TH/MM3 (0-0.4); HEMATOCRIT 27.5 % (35.0-46.0); LYMPH % 14.8 % (9.0-44.0); MEAN CORPUSCULAR HEMOGLOBIN 29.6 PG (27.0-34.0); MEAN CORPUSCULAR HGB CONC 33.3 % (32.0-36.0); MONO % 12.2 % (0.0-8.0); NEUT % 71.7 % (16.0-70.0); PLATELET COUNT 88 TH/MM3 (150-450); RED BLOOD COUNT 3.09 MIL/MM3 (4.00-5.30); WHITE BLOOD COUNT 6.9 TH/MM3 (4.0-11.0)
[2017-06-30 06:22] LABS: HEMO FLAGS AUTO DIFF
[2017-06-30] MEDS: INSULIN ASPART SUPPLEMENTAL SCALE SQ SCH ×4 (06:23→20:34)
[2017-06-30 06:53] LABS: BICARBONATE 28.8 MEQ/L (21.0-32.0); MAGNESIUM 1.9 MG/DL (1.5-2.5); POTASSIUM 4.6 MEQ/L (3.5-5.1)
[2017-06-30] MEDS: FAMOTIDINE 20 MG TAB PO SCH (10:16)
[2017-06-30] MEDS: SODIUM CHLORIDE 0.9% FLUSH 10 ML FLUSH IV FLUSH SCH ×2 (10:16→20:33)
[2017-06-30] MEDS: DILTIAZEM HCL 90 MG TAB PO SCH ×3 (10:16→17:09)
[2017-06-30] MEDS: APIXABAN 2.5 MG TABLET PO SCH ×2 (10:16→20:34)
[2017-06-30] MEDS: BUDESONIDE-FORMOTEROL 160/4.5 MCG INHALER INH SCH ×2 (10:16→20:33)
--- NOTE | 2017-06-30 10:18 | RADRPT ---
EXAM DATE/TIME: 06/30/2017 09:05 [facility] COMPARISON: No previous studies available for comparison. EXTERNAL COMPARISON : [facility], US ABDOMEN COMPLETE, February 14, 2017 INDICATIONS : Increased BUN/creatinine. MEDICAL HISTORY : Myocardial infarction. Congestive heart failure. Hypertension. Thyroid disease. Dentures. Anticoagula nt therapy. Irregular heartbeat. Asthma. Dyspnea. Wheezing. Vomiting. Gastroesophageal reflux disorde r. Arthritis. Diabetes. Cirrhosis. Hepatitis C. SURGICAL HISTORY : Pacemaker. Cholecystectomy. Hysterectomy. Cataract removal. Cardiac catheterization. Coronary stent. ENCOUNTER: Subsequent ACUITY: 1 day PAIN SCORE: 0/10 LOCATION: Bilateral flank MEASUREMENTS: RIGHT KIDNEY: 10.2 x 4.1 x 4.3 cm LEFT KIDNEY: 12.0 x 1.3 x 4.5 cm FINDINGS: The kidneys are echogenic characteristic of mild medical renal disease. Small bilateral renal cysts. Bladder unremarkable. No hydronephrosis. No perinephric fluid. CONCLUSION: 1. Echogenic kidneys characteristic of medical renal disease. Small renal cysts. No hydronephrosis. Simon Rowan MD on June 30, 2017 at 10:09 Board Certified Radiologist. This report was verified electronically.
[2017-06-30 10:56] LABS: PLATELET ESTIMATE SMEAR LOW (NORMAL); PLATELET MORPHOLOGY NORMAL (NORMAL); SCAN/DIFF AUTO DIFF CONFIRMED
--- NOTE | 2017-06-30 13:38 | PD.CARD.PN ---
Subjective Subjective Remarks The patient is doing well. No cardiac complaints Objective Medications Current Medications Medications (Trade) Dose Ordered Sig/Marlon Route Start Time Stop Time Status Last Admin (Cardizem Inj/NS Inj) 125 ml @ 0 mls/hr TITRATE IV 06/27/17 23:15 06/28/17 00:43 (NS Flush) 2 ml UNSCH PRN IV FLUSH 06/28/17 02:30 (NS Flush) 2 ml BID IV FLUSH 06/28/17 09:00 06/30/17 10:16 (Zofran Inj) 4 mg Q6H PRN IVP 06/28/17 02:30 (Narcan Inj) 0.4 mg UNSCH PRN IV 06/28/17 02:30 (Symbicort 160-4.5 Inh) 2 puff BID INH 06/28/17 09:00 06/30/17 10:16 (Cardizem) 180 mg TID PO 06/28/17 09:00 06/30/17 10:16 (Synthroid) 125 mcg DAILY@06 PO 06/28/17 06:00 06/30/17 05:46 (Lopressor) 50 mg Q8H PO 06/28/17 06:00 06/30/17 05:46 (Pepcid) 20 mg DAILY PO 06/28/17 09:00 06/30/17 10:16 (D50w (Vial) Inj) 50 ml UNSCH PRN IV 06/28/17 04:15 (Glucagon Inj) 1 mg UNSCH PRN OTHER 06/28/17 04:15 (Chlorhexidine 2% Cloth) 3 pack DAILY@04 TOPICAL 06/29/17 04:00 07/03/17 04:01 (Chlorhexidine 2% Cloth) 3 pack UNSCH PRN TOPICAL 06/28/17 09:15 07/03/17 09:08 Miscellaneous Information Patient in critical care unit? Ass... Q361D .XX 06/28/17 09:15 06/28/17 09:15 (Eliquis) 2.5 mg BID PO 06/28/17 21:00 06/30/17 10:16 Vital Signs / I&O Vital Signs Date Time Temp Pulse Resp B/P Pulse Ox O2 Delivery O2 Flow Rate FiO2 06/30/17 12:01 97.8 88 16 137/74 96 06/30/17 09:31 95 Nasal Cannula 2.00 06/30/17 08:00 98.6 102 16 138/92 95 06/30/17 06:00 84 06/30/17 05:35 98.6 86 14 133/71 96 06/30/17 05:00 80 06/30/17 04:00 80 06/30/17 03:00 80 06/30/17 02:00 80 06/30/17 01:00 76 14 135/78 97 06/30/17 01:00 74 06/30/17 00:00 76 06/29/17 23:00 68 06/29/17 22:00 70 06/29/17 21:00 70 06/29/17 20:00 98.4 71 14 116/66 98 06/29/17 20:00 64 06/29/17 19:00 64 06/29/17 18:05 64 06/29/17 17:02 63 06/29/17 16:29 65 06/29/17 15:00 66 06/29/17 15:00 98.4 63 16 105/63 96 06/29/17 14:00 65 I/O 06/29/17 06/29/17 06/29/17 06/30/17 06/30/17 06/30/17 07:00 15:00 23:00 07:00 15:00 23:00 Intake Total 240 ml 450 ml 120 ml Output Total 350 ml 620 ml Balance -110 ml -170 ml 120 ml Intake Oral 240 ml 450 ml 120 ml IV Total 0 ml Output Urine Total 350 ml 620 ml # Voids 3 3 # Bowel Movements 1 0 Physical Exam GENERAL: Elderly female SKIN: Warm and dry. HEAD: Normocephalic. EYES: No scleral icterus. No injection or drainage. NECK: Supple, trachea midline. CARDIOVASCULAR: Irreg irreg. left chest PPM RESPIRATORY: Diminished bases, some rales GASTROINTESTINAL: Abdomen soft, non-tender, nondistended. MUSCULOSKELETAL: No cyanosis, Mild BLE edema BACK: Nontender without obvious deformity. No CVA tenderness. Laboratory Laboratory Tests Test 06/30/17 05:43 White Blood Count 6.9 TH/MM3 Red Blood Count 3.09 MIL/MM3 Hemoglobin 9.1 GM/DL Hematocrit 27.5 % Mean Corpuscular Volume 89.0 FL Mean Corpuscular Hemoglobin 29.6 PG Mean Corpuscular Hemoglobin 33.3 % Concent Red Cell Distribution Width 16.0 % Platelet Count 88 TH/MM3 Mean Platelet Volume 9.4 FL Neutrophils (%) (Auto) 71.7 % Lymphocytes (%) (Auto) 14.8 % Monocytes (%) (Auto) 12.2 % Eosinophils (%) (Auto) 1.0 % Basophils (%) (Auto) 0.3 % Neutrophils # (Auto) 5.0 TH/MM3 Lymphocytes # (Auto) 1.0 TH/MM3 Monocytes # (Auto) 0.8 TH/MM3 Eosinophils # (Auto) 0.1 TH/MM3 Basophils # (Auto) 0.0 TH/MM3 CBC Comment AUTO DIFF Differential Comment AUTO DIFF CONFIRMED Platelet Estimate LOW Platelet Morphology Comment NORMAL Sodium Level 135 MEQ/L Potassium Level 4.6 MEQ/L Chloride Level 99 MEQ/L Carbon Dioxide Level 28.8 MEQ/L Anion Gap 7 MEQ/L Blood Urea Nitrogen 47 MG/DL Creatinine 2.67 MG/DL Estimat Glomerular Filtration 17 ML/MIN Rate Random Glucose 177 MG/DL Calcium Level 8.3 MG/DL Phosphorus Level 4.6 MG/DL Magnesium Level 1.9 MG/DL Albumin 2.9 GM/DL Imaging Last 72 hours Impressions Renal Ultrasound 06/30/17 0000 Signed Impressions: Service Date/Time: June 09:05 - CONCLUSION: 1. Echogenic kidneys characteristic of medical renal disease. Small renal cysts. No hydronephrosis. Simon Rowan MD Abdomen/Pelvis CT 06/28/17 0038 Signed Impressions: Service Date/Time: Wednesday, June 28, 2017 01:10 - CONCLUSION: 1. The liver remains cirrhotic in appearance with no focal lesion. 2. Mild splenomegaly again noted. 3. 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 4. Small bilateral pleural effusions are noted right greater the left. Steve Jones MD Chest X-Ray 06/27/17 2231 Signed Impressions: Service Date/Time: Tuesday, June 27, 2017 22:33 - CONCLUSION: Small bilateral pleural effusions stable from prior. No focal infiltrates seen. Ezekiel Ritter MD Assessment and Plan Assessment and Plan Chronic atrial fibrillation. CHADSVAC 7. Stroke risk 9.6% in the absence of thromboprophylaxis. Afib RVR on admission likely due to dehydration Chronic diastolic CHF exacerbation ASHD history PPM base rate 60 bpm PAD Diabetes HLD CASSIE PLAN: Pending nephrology evaluation We continue to monitor risk vs benefit of oral AC. The patient is clear from cardiac standpoint for discharge. Assessment and plan discussed with Rosamaria Young Jun 30, 2017 13:38
--- NOTE | 2017-06-30 16:34 | PD.CONS ---
HPI Consult Requested By Reason for Consult Acute on chronic renal insufficiency. Primary Care Physician BELINDA Lopez History of Present Illness This patient is an 82-year-old female with a history of multiple medical problems including apparent chronic kidney disease given elevations in her creatinine level previously with a renal ultrasound this admission showing evidence of medical renal disease. She also has a history of cirrhosis, diastolic dysfunction with CHF, diabetes mellitus. Apparently patient was experiencing increasing fluid retention advised to increase her diuretic therapy prior to this admission. Subsequently developed nausea and vomiting with diarrhea and presented to the hospital with tachycardia related to atrial fibrillation with a rapid ventricular rate also. Previously her creatinine level had range between 0.95 and 1.34. On presentation creatinine level I.51. Of interest she had a CAT scan utilizing IV contrast on 06/28/17. Creatinine level has continued to deteriorate being 2.67 today. In addition patient has been using Aleve 2 pills weekly on average prior to admission. Review of Systems Constitutional: COMPLAINS OF: Fatigue, DENIES: Diaphoretic episodes, Fever, Weight gain, Weight loss, Chills, Dizziness, Change in appetite, Night Sweats Respiratory: DENIES: Apneas, Cough, Snoring, Wheezing, Hemoptysis, Sputum production, Shortness of breath Cardiovascular: COMPLAINS OF: Lower Extremity Edema, DENIES: Chest pain, Palpitations, Syncope, Dyspnea on Exertion, PND, Orthopnea, Claudication Musculoskeletal: COMPLAINS OF: Joint pain, DENIES: Muscle aches, Stiffness, Joint Swelling, Back pain, Neck pain Past Family Social History Allergies: Coded Allergies: Penicillin (Verified Allergy, Severe, Anaphylaxis, 06/27/17) Past Medical History Chronic kidney disease stage III Of his chronic heart disease. Peripheral arterial disease by history. Diabetes mellitus. Hypothyroidism. Cirrhosis. Congestive heart failure with diastolic dysfunction. Atrial fibrillation. Past Surgical History PTCA per records. Reported Medications Reported Meds & Active Scripts Active Senna Lax (Sennosides) 8.6 Mg Tab 17.2 Mg PO DAILY Reported Furosemide 20 Mg Tab 20 Mg PO BID Torsemide 10 Mg Tab 10 Mg PO DAILY Metoprolol Succinate ER 24 HR (Metoprolol Succinate) 50 Mg Tab 50 Mg PO TID Lisinopril 5 Mg Tab 5 Mg PO DAILY Diltiazem (Diltiazem HCl) 90 Mg Tab 180 Mg PO TID Glimepiride 1 Mg Tab 1 Mg PO BID Take with breakfast or first main meal Diprolene Topical (Betamethasone Dipropionate Aug Topical) 0.05% Oint 1 Applic TOPICAL BID Ferrous Gluconate 325 Mg Tab 325 Mg PO TID Potassium Chloride ER (Potassium Chloride) 10 Meq Cap 10 Meq PO DAILY Xopenex Hfa 15 GM Inh (Levalbuterol 15 GM Inh) 45 Mcg/Act Aer 45 Mcg INH Q6HR Shake well before using. (1 puff = 45 mcg) Janumet (Sitagliptin-Metformin) 50-1,000 Mg Tab 1 Tab PO BID Brovana Neb (Arformoterol Neb) 15 Mcg/2 Ml Vial 1 Nebule NEB BID Maintenance treatment of bronchoconstriction in COPD. Alendronate (Alendronate Sodium) 70 Mg Tab 70 Mg PO Q7D Proair Hfa 8.5 GM Inh (Albuterol Sulfate) 90 Mcg/Act Aer 1 Puff INH BID PRN 108 mcg/actuation Eliquis (Apixaban) 2.5 Mg Tab 2.5 Mg PO BID Zantac (Ranitidine HCl) 150 Mg Tab 150 Mg PO DAILY Levothyroxine (Levothyroxine Sodium) 125 Mcg Tab 125 Mcg PO DAILY Symbicort Inh (Budesonide/Formoterol Fumarate) 160-4.5 Mcg/Act Aero 2 Puff INH BID Active Ordered Medications Current Medications Sodium Chloride (NS 500 ml Inj) 500 ml @ 500 mls/hr BOLUS ONCE IV Last administered on 06/27/17 23:07; Start 06/27/17 at 22:45; Stop 06/28/17 at 02:30 ; Status DC Ondansetron HCl (Zofran Inj) 4 mg ONCE ONCE IV PUSH Last administered on 23:07; Start 06/27/17 at 22:45; Stop 06/27/17 at 22:46; Status DC Diltiazem HCl 20 mg 20 mg ONCE ONCE IV Last administered on 06/27/17 23:34; Start 06/27/17 at 23:15; Stop 06/27/17 at 23:16; Status DC Diltiazem HCl/ Sodium Chloride (Cardizem Inj/NS Inj) 125 ml @ 0 mls/hr TITRATE IV Last administered on 06/28/17 00:43; Start 06/27/17 at 23:15 Sodium Chloride (NS Flush) 2 ml UNSCH PRN IVF FLUSH AFTER USING IV ACCESS; Start 06/27/17 at 23:15; Stop 06/28/17 at 16:04; Status DC Iodixanol 45 ml 45 ml STK-MED ONCE IV Last administered on 06/28/17 01:13; Start 06/28/17 at 01:13; Stop 06/28/17 at 01:14; Status DC Sodium Chloride (NS 500 ml Inj) 500 ml @ 500 mls/hr BOLUS ONCE IV Last administered on 06/28/17 01:44; Start 06/28/17 at 01:45; Stop 06/28/17 at 02:31; Status DC Sodium Chloride (NS Flush) 2 ml UNSCH PRN IV FLUSH FLUSH AFTER USING IV ACCESS ; Start 06/28/17 at 02:30 Sodium Chloride (NS Flush) 2 ml BID IV FLUSH Last administered on 06/30/17 10: 16; Start 06/28/17 at 09:00 Ondansetron HCl (Zofran Inj) 4 mg Q6H PRN IVP NAUSEA OR VOMITING; Start at 02:30 Naloxone HCl (Narcan Inj) 0.4 mg UNSCH PRN IV SEE LABEL COMMENTS; Start at 02:30 Budesonide/ Formoterol Fumarate (Symbicort 160-4.5 Inh) 2 puff BID INH Last administered on 06/30/17 10:16; Start 06/28/17 at 09:00 Diltiazem HCl (Cardizem) 180 mg TID PO Last administered on 06/30/17 13:38; Start 06/28/17 at 09:00 Levothyroxine Sodium (Synthroid) 125 mcg DAILY@06 PO Last administered on 05:46; Start 06/28/17 at 06:00 Lisinopril (Prinivil) 5 mg DAILY PO Last administered on 06/29/17 08:21; Start 06/28/17 at 09:00; Stop 06/29/17 at 09:51; Status DC Metoprolol Tartrate (Lopressor) 50 mg Q8H PO Last administered on 06/30/17 13: 38; Start 06/28/17 at 06:00 Famotidine (Pepcid) 20 mg DAILY PO Last administered on 06/30/17 10:16; Start 06/28/17 at 09:00 Dextrose (D50w (Vial) Inj) 50 ml UNSCH PRN IV HYPOGLYCEMIA-SEE COMMENTS; Start 06/28/17 at 04:15 Glucagon (Glucagon Inj) 1 mg UNSCH PRN OTHER HYPOGLYCEMIA-SEE COMMENTS; Start 06/28/17 at 04:15 Insulin Aspart (NovoLOG SUPPLEMENTAL SCALE) 1 ACHS SLIDING SCALE SQ Last administered on 06/30/17 11:00; Start 06/28/17 at 07:00 Ipratropium [place] (Atrovent Neb) 0.5 mg Q6HR NEB NEB Last administered on 15:57; Start 06/28/17 at 10:00 Ipratropium [place] (Atrovent Neb) 0.5 mg Q2HR NEB PRN NEB wheezing; Start 06/28 at 04:15 Pantoprazole Sodium (Protonix Inj) 40 mg Q24H IV PUSH Last administered on 08:37; Start 06/28/17 at 09:00; Stop 06/28/17 at 09:53; Status DC Thiamine HCl (Vitamin B1) 500 mg ONCE ONCE PO Last administered on 06/28/17 08 :37; Start 06/28/17 at 07:45; Stop 06/28/17 at 07:49; Status DC Chlorhexidine Gluconate (Chlorhexidine 2% Cloth) 3 pack DAILY@04 TOPICAL ; Start 06/29/17 at 04:00; Stop 07/03/17 at 04:01 Chlorhexidine Gluconate (Chlorhexidine 2% Cloth) 3 pack UNSCH PRN TOPICAL HYGIENIC CARE; Start 06/28/17 at 09:15; Stop 07/03/17 at 09:08 Miscellaneous Information Patient in critical care unit? Ass... Q361D .XX Last administered on 06/28/17 09:15; Start 06/28/17 at 09:15 Apixaban 2.5 mg 2.5 mg BID PO Last administered on 06/30/17 10:16; Start at 21:00 Magnesium Sulfate/ Dextrose (Magnesium Sulfate 1 Gm Premix) 100 ml @ 100 mls/ hr ONCE ONCE IV Last administered on 06/28/17 17:05; Start 06/28/17 at 16:00; Stop 06/28/17 at 16:59; Status DC Furosemide (Lasix) 40 mg ONCE ONCE PO Last administered on 06/28/17 17:05; Start 06/28/17 at 16:15; Stop 06/28/17 at 16:16; Status DC Torsemide (Demadex) 20 mg ONCE ONCE PO Last administered on 06/29/17 13:48; Start 06/29/17 at 13:00; Stop 06/29/17 at 13:01; Status DC Family History Noncontributory to current complaint. Social History As per H&P. Physical Exam Vital Signs Vital Signs Date Time Temp Pulse Resp B/P Pulse Ox O2 Delivery O2 Flow Rate FiO2 06/30/17 12:01 97.8 88 16 137/74 96 06/30/17 12:00 86 06/30/17 09:31 95 Nasal Cannula 2.00 06/30/17 08:00 86 06/30/17 08:00 98.6 102 16 138/92 95 06/30/17 06:00 84 06/30/17 05:35 98.6 86 14 133/71 96 06/30/17 05:00 80 06/30/17 04:00 80 06/30/17 03:00 80 06/30/17 02:00 80 06/30/17 01:00 76 14 135/78 97 06/30/17 01:00 74 06/30/17 00:00 76 06/29/17 23:00 68 06/29/17 22:00 70 06/29/17 21:00 70 06/29/17 20:00 98.4 71 14 116/66 98 06/29/17 20:00 64 06/29/17 19:00 64 06/29/17 18:05 64 06/29/17 17:02 63 06/29/17 16:29 65 Physical Exam GENERAL: Patient not in respiratory distress. SKIN: Warm and dry. HEAD: Normocephalic. EYES: No scleral icterus. No injection or drainage. NECK: Supple, trachea midline. No JVD or lymphadenopathy. CARDIOVASCULAR: Regular rate and rhythm without murmurs, gallops, or rubs. RESPIRATORY: Breath sounds equal bilaterally. No accessory muscle use. GASTROINTESTINAL: Abdomen soft, non-tender, nondistended. MUSCULOSKELETAL: No cyanosis, trace edema ankles. BACK: Nontender without obvious deformity. No CVA tenderness. Laboratory Laboratory Tests Test 06/30/17 05:43 White Blood Count 6.9 Red Blood Count 3.09 Hemoglobin 9.1 Hematocrit 27.5 Mean Corpuscular Volume 89.0 Mean Corpuscular Hemoglobin 29.6 Mean Corpuscular Hemoglobin 33.3 Concent Red Cell Distribution Width 16.0 Platelet Count 88 Mean Platelet Volume 9.4 Neutrophils (%) (Auto) 71.7 Lymphocytes (%) (Auto) 14.8 Monocytes (%) (Auto) 12.2 Eosinophils (%) (Auto) 1.0 Basophils (%) (Auto) 0.3 Neutrophils # (Auto) 5.0 Lymphocytes # (Auto) 1.0 Monocytes # (Auto) 0.8 Eosinophils # (Auto) 0.1 Basophils # (Auto) 0.0 CBC Comment AUTO DIFF Differential Comment AUTO DIFF CONFIRMED Platelet Estimate LOW Platelet Morphology Comment NORMAL Sodium Level 135 Potassium Level 4.6 Chloride Level 99 Carbon Dioxide Level 28.8 Anion Gap 7 Blood Urea Nitrogen 47 Creatinine 2.67 Estimat Glomerular Filtration 17 Rate Random Glucose 177 Calcium Level 8.3 Phosphorus Level 4.6 Magnesium Level 1.9 Albumin 2.9 Result Diagram: 06/30/17 0543 06/30/17 0543 Imaging Last 48 hours Impressions Renal Ultrasound 06/30/17 0000 Signed Impressions: Service Date/Time: June 09:05 - CONCLUSION: 1. Echogenic kidneys characteristic of medical renal disease. Small renal cysts. No hydronephrosis. Simon Rowan MD Assessment and Plan Problem List: (1) Acute kidney injury superimposed on chronic kidney disease Plan: Differential diagnoses at this point in time would include acute renal insufficiency secondary to contrast nephrotoxicity with possible superimposed ATN on presentation. Hopefully the patient's renal function will stabilize and improve prior to requirement for renal replacement therapy. No specific treatment for contrast nephrotoxicity at this point in time. Agree with discontinuance of diuretic therapy and МАРИЯ inhibitor for the present pending stabilization of renal function. Medications should be adjusted for the patient's estimated GFR if clinically indicated. Avoid agents with significant potential for nephrotoxicity possible including NSAIDs for analgesia, iodine contrast agents. Gadolinium is contraindicated if the GFR is below 30. Current situation was discussed with the patient via her daughter. All the above was reviewed with them including the possibility of progressive worsening azotemia with his associated implications. (2) CKD (chronic kidney disease) stage 3, GFR 30-59 ml/min Plan: Most likely related to nephrosclerosis of hypertension and aging with possible superimposed diabetic nephropathy. As mentioned above renal ultrasound findings and previous renal indices are consistent with CKD. (3) Anemia Plan: Anemia needs to be characterized. Taken liberty of ordering iron studies, B12 level and folic acid level. Also screening for myeloma. (4) Cirrhosis (5) Diastolic CHF Plan: Clinically compensated at present. Terry Manuel MD Jun 30, 2017 16:34
[2017-06-30 17:03] LABS: URINE TOTAL PROTEIN TIMED 26.9 MG/DL
[2017-06-30 17:04] LABS: BLOOD, URINE NEG (NEG); COMMENT (UR) CULT NOT INDICATED; CULTURE IF INDICATED CULT NOT INDICATED; GLUCOSE,URINE NEG (NEG); KETONE, URINE NEG (NEG); NITRITE,URINE NEG (NEG); PH, URINE 5.5 (5.0-8.5); SQUAMOUS EPITHELIAL CELL URINE <1 /hpf (0-5); URINE COLOR YELLOW (YELLW/STRAW)
--- NOTE | 2017-06-30 17:29 | HHI.PR ---
Subjective Remarks Patient seen this afternoon around 2 PM. Daughter and patient requests daughter to be used for translation. Says she is feeling all right. Denies any chest pain or shortness of breath. Denies any dysuria. Objective Vital Signs Date Time Temp Pulse Resp B/P Pulse Ox O2 Delivery O2 Flow Rate FiO2 06/30/17 17:22 96 Nasal Cannula 2.00 06/30/17 12:01 97.8 88 16 137/74 96 06/30/17 12:00 86 06/30/17 09:31 95 Nasal Cannula 2.00 06/30/17 08:00 86 06/30/17 08:00 98.6 102 16 138/92 95 06/30/17 06:00 84 06/30/17 05:35 98.6 86 14 133/71 96 06/30/17 05:00 80 06/30/17 04:00 80 06/30/17 03:00 80 06/30/17 02:00 80 06/30/17 01:00 76 14 135/78 97 06/30/17 01:00 74 06/30/17 00:00 76 06/29/17 23:00 68 06/29/17 22:00 70 06/29/17 21:00 70 06/29/17 20:00 98.4 71 14 116/66 98 06/29/17 20:00 64 06/29/17 19:00 64 06/29/17 18:05 64 I/O 06/29/17 06/29/17 06/29/17 06/30/17 06/30/17 06/30/17 06:59 14:59 22:59 06:59 14:59 22:59 Intake Total 240 ml 450 ml 120 ml Output Total 350 ml 620 ml Balance -110 ml -170 ml 120 ml Intake Oral 240 ml 450 ml 120 ml IV Total 0 ml Output Urine Total 350 ml 620 ml # Voids 3 3 # Bowel Movements 1 0 Result Diagram: 06/30/17 0543 06/30/17 0543 Objective Remarks GENERAL: patient sitting up in chair. Appears comfortable.alert and oriented3 SKIN: Warm and dry. HEAD: Normocephalic. EYES: No scleral icterus. No injection or drainage. NECK: Supple, trachea midline. No JVD. CARDIOVASCULAR: Regular rate and rhythm without murmurs, gallops, or rubs. RESPIRATORY: Breath sounds equal bilaterally. No accessory muscle use. GASTROINTESTINAL: Abdomen soft, non-tender, nondistended. MUSCULOSKELETAL: No cyanosis. patient had trace edema yesterday. No edema today. BACK: Nontender without obvious deformity. No CVA tenderness. A/P Assessment and Plan ====06/30/17==== //Acute kidney injury. Worsening Creatinine increased to 2.67 . Continue to Hold lisinopril. Ultrasound kidneys with no hydronephrosis. Consult nephrology //CHF exacerbation. Appears to be euvolemic. BNP reviewed, 528, improved from admission. Liberalize fluids. //Hypertension. Blood pressure supple. Continue medications as ordered. Continue to monitor. //Atrial fibrillation. Heart rate controlled. Continue diltiazem. Cardiology following. Appreciate assistance. Continue eliquis. Continue to monitor. //Diabetes mellitus. Continue insulin sliding scale. //DVT prophylaxis. As per cardiology. Discharge Planning possibly discharge tomorrow if creatinine is stable Hussein Collazo MD Jun 30, 2017 17:29
[2017-07-01] VITALS (21 sets, daily range): BP systolic 110–153; BP diastolic 62–95; PULSE 56–107; RESP 16–20; TEMP 97.9–99; O2SAT 95–100
[2017-07-01] MEDS: RESP: IPRATROPIUM 0.5 MG/2.5 ML NEB NEB SCH ×4 (04:09→20:37)
[2017-07-01] MEDS: LEVOTHYROXINE SODIUM 125 MCG TAB PO SCH (04:11)
[2017-07-01] MEDS: METOPROLOL TARTRATE 50 MG TAB PO SCH ×3 (04:11→22:04)
[2017-07-01] MEDS: INSULIN ASPART SUPPLEMENTAL SCALE SQ SCH ×4 (05:38→22:03)
[2017-07-01 06:56] LABS: ANION GAP 9 MEQ/L (5-15); BICARBONATE 28.8 MEQ/L (21.0-32.0); BLOOD UREA NITROGEN 51 MG/DL (7-18); CHLORIDE 97 MEQ/L (98-107); GLOMERULAR FILTRATION RATE 16 ML/MIN (>89); POTASSIUM 4.4 MEQ/L (3.5-5.1); SODIUM (NA) 135 MEQ/L (136-145)
[2017-07-01 07:30] LABS: FERRITIN 78 NG/ML (8-252); TOTAL PROTEIN SPE 8.8 GM/DL (6.0-7.6); TRANSFERRIN IRON PROFILE 241 MG/DL (200-360)
[2017-07-01] MEDS: FAMOTIDINE 20 MG TAB PO SCH (08:50)
[2017-07-01] MEDS: BUDESONIDE-FORMOTEROL 160/4.5 MCG INHALER INH SCH ×2 (08:50→22:06)
[2017-07-01] MEDS: APIXABAN 2.5 MG TABLET PO SCH ×2 (08:50→22:04)
[2017-07-01] MEDS: SODIUM CHLORIDE 0.9% FLUSH 10 ML FLUSH IV FLUSH SCH ×2 (08:50→22:04)
[2017-07-01] MEDS: DILTIAZEM HCL 90 MG TAB PO SCH ×3 (08:50→17:18)
--- NOTE | 2017-07-01 15:13 | HHI.NPPN ---
Subjective History of Present Illness This patient is an 82-year-old female with a history of multiple medical problems including apparent chronic kidney disease given elevations in her creatinine level previously with a renal ultrasound this admission showing evidence of medical renal disease. She also has a history of cirrhosis, diastolic dysfunction with CHF, diabetes mellitus. Apparently patient was experiencing increasing fluid retention advised to increase her diuretic therapy prior to this admission. Subsequently developed nausea and vomiting with diarrhea and presented to the hospital with tachycardia related to atrial fibrillation with a rapid ventricular rate also. Previously her creatinine level had range between 0.95 and 1.34. On presentation creatinine level I.51. Of interest she had a CAT scan utilizing IV contrast on 06/28/17. Creatinine level has continued to deteriorate being 2.67 today. In addition patient has been using Aleve 2 pills weekly on average prior to admission. Interval History Pt on NC States she is feeling good today. No chest pain, no SOB Greek speaking only, so there was some language barrier. (Kandy Cowart ) Objective Data Data 06/30/17 07/01/17 19:00 07:00 Intake Total 720 ml Output Total 400 ml Balance 320 ml Intake Oral 720 ml Output Urine Total 400 ml Bladder Scan Volume Amount 30 ml # Voids 4 Vital Signs Date Time Temp Pulse Resp B/P Pulse Ox O2 Delivery O2 Flow Rate FiO2 07/01/17 12:00 98.1 100 16 146/90 07/01/17 08:00 98.2 86 16 139/86 99 07/01/17 07:22 98 Nasal Cannula 3.00 07/01/17 06:00 86 07/01/17 05:00 96 07/01/17 04:00 95 07/01/17 04:00 97.9 107 20 153/95 100 07/01/17 03:00 86 07/01/17 02:00 76 07/01/17 01:00 70 07/01/17 00:00 60 07/01/17 00:00 98.3 65 20 120/62 95 06/30/17 23:00 60 06/30/17 22:00 60 06/30/17 21:00 60 06/30/17 20:00 60 06/30/17 20:00 98.8 60 20 111/60 99 06/30/17 18:00 62 06/30/17 17:22 96 Nasal Cannula 2.00 06/30/17 17:00 60 06/30/17 16:00 98.0 60 16 119/62 97 06/30/17 16:00 86 06/30/17 15:00 62 (Kandy Cowart) -: 06/30/17 0543 07/01/17 0530 Imaging Last Impressions Renal Ultrasound 06/30/17 0000 Signed Impressions: Service Date/Time: June 09:05 - CONCLUSION: 1. Echogenic kidneys characteristic of medical renal disease. Small renal cysts. No hydronephrosis. Simon Rowan MD Abdomen/Pelvis CT 06/28/17 0038 Signed Impressions: Service Date/Time: Wednesday, June 28, 2017 01:10 - CONCLUSION: 1. The liver remains cirrhotic in appearance with no focal lesion. 2. Mild splenomegaly again noted. 3. 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 4. Small bilateral pleural effusions are noted right greater the left. Steve Jones MD Chest X-Ray 06/27/172230 Signed Impressions: Service Date/Time: Tuesday, June 27, 2017 22:33 - CONCLUSION: Small bilateral pleural effusions stable from prior. No focal infiltrates seen. Ezekiel Ritter MD Medication Review Current Medications Medications (Trade) Dose Ordered Sig/Marlno Route Start Time Stop Time Status Last Admin (Cardizem Inj/NS Inj) 125 ml @ 0 mls/hr TITRATE IV 06/27/17 23:15 06/28/17 00:43 (NS Flush) 2 ml UNSCH PRN IV FLUSH 06/28/17 02:30 (NS Flush) 2 ml BID IV FLUSH 06/28/17 09:00 07/01/17 08:50 (Zofran Inj) 4 mg Q6H PRN IVP 06/28/17 02:30 (Narcan Inj) 0.4 mg UNSCH PRN IV 06/28/17 02:30 (Symbicort 160-4.5 Inh) 2 puff BID INH 06/28/17 09:00 07/01/17 08:50 (Cardizem) 180 mg TID PO 06/28/17 09:00 07/01/17 12:17 (Synthroid) 125 mcg DAILY@06 PO 06/28/17 06:00 07/01/17 04:11 (Lopressor) 50 mg Q8H PO 06/28/17 06:00 07/01/17 04:11 (Pepcid) 20 mg DAILY PO 06/28/17 09:00 07/01/17 08:50 (D50w (Vial) Inj) 50 ml UNSCH PRN IV 06/28/17 04:15 (Glucagon Inj) 1 mg UNSCH PRN OTHER 06/28/17 04:15 (Chlorhexidine 2% Cloth) 3 pack DAILY@04 TOPICAL 06/29/17 04:00 07/03/17 04:01 (Chlorhexidine 2% Cloth) 3 pack UNSCH PRN TOPICAL 06/28/17 09:15 07/03/17 09:08 Miscellaneous Information Patient in critical care unit? Ass... Q361D .XX 06/28/17 09:15 06/28/17 09:15 (Eliquis) 2.5 mg BID PO 06/28/17 21:00 07/01/17 08:50 (Kandy Cowart) Physical Exam General Appearance: No Acute Distress, Comfortable (Kandy Cowart) Pulmonary Resp Exam: Clear Bilaterally, Breath Sounds Equal (Kandy Cowart) Cardiology CV Exam: Regular, Normal Sinus Rhythm (Kandy Cowart) Gastrointestinal/Abdomen GI Exam: Soft, Non-Tender (Kandy Cowart) Integumentary Skin Exam: Clear, Warm (Kandy Cowart) Extremeties Extremities Exam: Moderate Edema (1+ pitting bilat ankles R>L) (Kandy Cowart) Neurologic Neuro Exam: Alert, Awake (Kandy Cowart) Assessment/Plan Problem List: (1) Acute kidney injury superimposed on chronic kidney disease Plan: Differential diagnoses at this point in time would include acute renal insufficiency secondary to contrast nephrotoxicity with possible superimposed ATN on presentation. Hopefully the patient's renal function will stabilize and improve prior to requirement for renal replacement therapy. SCr unfortunately worsened slightly today. Says her UOP is good Continue to hold diuretics. She does have some edema, so may need resumed tomorrow. Medications should be adjusted for the patient's estimated GFR if clinically indicated. Avoid agents with significant potential for nephrotoxicity possible including NSAIDs for analgesia, iodine contrast agents. Gadolinium is contraindicated if the GFR is below 30 (2) CKD (chronic kidney disease) stage 3, GFR 30-59 ml/min Plan: Most likely related to nephrosclerosis of hypertension and aging with possible superimposed diabetic nephropathy. As mentioned above renal ultrasound findings and previous renal indices are consistent with CKD. (3) Anemia Plan: Fe stores low. Start po Fe. MM work up underway (4) Hepatitis C Plan: Noted positive history with PCR positive in October. Uncertain of status of this. Not likely related to renal dysfunction given bland urinalysis, however, would recommend GI f/u on this. Will defer to primary. (5) Cirrhosis (6) Diastolic CHF Plan: Clinically compensated at present. (Kandy Cowart) Plan The exam, history, and the medical decision-making described in the above note were completed with the assistance of the PA-C. I reviewed and agree with the findings presented. (Terry Manuel MD) Kandy Cowart Jul 01, 2017 15:12 Terry Manuel MD Jul 02, 2017 14:23
[2017-07-01] MEDS: FERROUS SULFATE 325 MG (65 MG ELEMENTAL IRON) TAB PO SCH (17:18)
[2017-07-01 18:28] LABS: ALBUMIN SPE 3.93 GM/DL (3.50-5.00); ALPHA 1 GLOBULIN 0.28 GM/DL (0.11-0.29); ALPHA 2 GLOBULIN 0.89 GM/DL (0.22-1.00); BETA GLOBULINS (SPE) 0.62 GM/DL (0.53-1.03)
--- NOTE | 2017-07-01 22:42 | HHI.PR ---
Subjective Remarks Patient seen today around 2 PM says she is feeling well. Like to go home. Denies any chest pain or shortness of breath. She reports constipation, however bowel movement recorded yesterday. Objective Vital Signs Date Time Temp Pulse Resp B/P Pulse Ox O2 Delivery O2 Flow Rate FiO2 07/01/17 20:39 98 Nasal Cannula 3.00 07/01/17 16:00 98.2 86 16 128/75 96 07/01/17 15:58 60 07/01/17 12:00 98.1 100 16 146/90 07/01/17 08:20 89 07/01/17 08:00 98.2 86 16 139/86 99 07/01/17 07:22 98 Nasal Cannula 3.00 07/01/17 06:00 86 07/01/17 05:00 96 07/01/17 04:00 95 07/01/17 04:00 97.9 107 20 153/95 100 07/01/17 03:00 86 07/01/17 02:00 76 07/01/17 01:00 70 07/01/17 00:00 60 07/01/17 00:00 98.3 65 20 120/62 95 06/30/17 23:00 60 I/O 06/30/17 06/30/17 06/30/17 07/01/17 07/01/17 07/01/17 06:59 14:59 22:59 06:59 14:59 22:59 Intake Total 120 ml 480 ml 240 ml Output Total 400 ml Balance 120 ml 80 ml 240 ml Intake Oral 120 ml 480 ml 240 ml IV Total 0 ml Output Urine Total 400 ml Bladder Scan Volume Amount 30 ml # Voids 3 2 2 # Bowel Movements 0 Result Diagram: 06/30/17 0543 07/01/17 0530 Objective Remarks GENERAL: patient sitting up in chair. Appears comfortable.alert and oriented 3. No change from day prior. SKIN: Warm and dry. HEAD: Normocephalic. EYES: No scleral icterus. No injection or drainage. NECK: Supple, trachea midline. No JVD. CARDIOVASCULAR: Regular rate and rhythm without murmurs, gallops, or rubs. RESPIRATORY: Breath sounds equal bilaterally. No accessory muscle use. GASTROINTESTINAL: Abdomen soft, non-tender, nondistended. MUSCULOSKELETAL: No cyanosis. patient had trace edema yesterday. No edema. BACK: Nontender without obvious deformity. No CVA tenderness. A/P Assessment and Plan 82-year-old female who presented with atrial fibrillation, RVR, CHF exacerbation.Atrial fibrillation is now controlled, on an regulation, however discharge held due to acute kidney injury likely secondary to IV contrast. ====07/01/17==== //Acute kidney injury. Creatinine 2.85, up from yesterday. Suspect secondary to IV contrast. Continue to monitor closely and expect to improve. //constipation. Laxatives ordered. //Hypertension. Blood pressure acceptable. Continue medications as ordered. Continue to monitor. //Atrial fibrillation. Heart rate controlled. Continue diltiazem. Cardiology following. Appreciate assistance. Continue eliquis. clear to discharge by cardiology. //Diabetes mellitus. Continue insulin sliding scale. //DVT prophylaxis. As per cardiology. Discharge Planning possibly discharge tomorrow if creatinine is stable Hussein Collazo MD Jul 01, 2017 22:42
[2017-07-01] MEDS ORDERED: DOCUSATE SODIUM 50 MG/SENNA 8.6 MG TAB PO ONE (22:45)
[2017-07-01] MEDS ORDERED: MAGNESIUM HYDROXIDE SUSP 30 ML CUP PO ONE (22:45)
[2017-07-02] VITALS (24 sets, daily range): BP systolic 117–138; BP diastolic 67–87; PULSE 64–96; RESP 16–18; TEMP 97.6–99; O2SAT 94–100
[2017-07-02] MEDS: CHLORHEXIDINE GLUCONATE 2 % 1 PACK (2 CLOTHS)(taper/protocol) TOPICAL SCH (04:00)
[2017-07-02] MEDS: RESP: IPRATROPIUM 0.5 MG/2.5 ML NEB NEB SCH ×4 (04:00→22:00)
[2017-07-02] MEDS: METOPROLOL TARTRATE 50 MG TAB PO SCH ×3 (06:18→21:49)
[2017-07-02] MEDS: LEVOTHYROXINE SODIUM 125 MCG TAB PO SCH (06:18)
[2017-07-02] MEDS: INSULIN ASPART SUPPLEMENTAL SCALE SQ SCH ×4 (06:21→21:56)
[2017-07-02 08:06] LABS: HEMATOCRIT 28.6 % (35.0-46.0); MEAN CELL VOLUME 89.4 FL (80.0-100.0); MEAN CORPUSCULAR HEMOGLOBIN 29.6 PG (27.0-34.0); MEAN CORPUSCULAR HGB CONC 33.1 % (32.0-36.0); PLATELET COUNT 110 TH/MM3 (150-450); RED CELL DISTRIBUTION WIDTH 15.5 % (11.6-17.2); REVIEW FLAG FINAL; WHITE BLOOD COUNT 6.1 TH/MM3 (4.0-11.0)
[2017-07-02] MEDS: DILTIAZEM HCL 90 MG TAB PO SCH ×3 (08:18→17:30)
[2017-07-02] MEDS: FAMOTIDINE 20 MG TAB PO SCH (08:19)
[2017-07-02] MEDS: APIXABAN 2.5 MG TABLET PO SCH ×2 (08:19→21:49)
[2017-07-02] MEDS: SODIUM CHLORIDE 0.9% FLUSH 10 ML FLUSH IV FLUSH SCH ×2 (08:19→21:00)
[2017-07-02] MEDS: BUDESONIDE-FORMOTEROL 160/4.5 MCG INHALER INH SCH ×2 (08:19→21:00)
[2017-07-02] MEDS: FERROUS SULFATE 325 MG (65 MG ELEMENTAL IRON) TAB PO SCH (08:19)
[2017-07-02 08:29] LABS: BICARBONATE 27.8 MEQ/L (21.0-32.0)
--- NOTE | 2017-07-02 08:48 | HHI.PR ---
Subjective Remarks In bed, eating breakfast. Says appetite is better. Feels somehow improving. Better PO intake. No cp, sob, n/v/d/c. Objective Vitals Vital Signs Date Time Temp Pulse Resp B/P Pulse Ox O2 Delivery O2 Flow Rate FiO2 07/02/17 06:00 96 07/02/17 05:00 92 07/02/17 04:42 80 18 138/78 95 07/02/17 04:00 84 07/02/17 03:00 87 07/02/17 02:00 80 07/02/17 01:00 76 07/02/17 00:00 70 07/01/17 23:30 69 16 134/71 98 07/01/17 23:00 60 07/01/17 22:00 60 07/01/17 21:00 60 07/01/17 20:39 98 Nasal Cannula 3.00 07/01/17 20:00 60 07/01/17 19:30 99.0 60 18 110/64 99 07/01/17 19:00 56 07/01/17 16:00 98.2 86 16 128/75 96 07/01/17 15:58 60 07/01/17 12:00 98.1 100 16 146/90 I/O 07/01/17 07/01/17 07/01/17 07/02/17 07/02/17 07/02/17 07:00 15:00 23:00 07:00 15:00 23:00 Intake Total 240 ml 300 ml Balance 240 ml 300 ml Intake Oral 240 ml 300 ml # Voids 2 1 # Bowel Movements 0 Result Diagram: 07/02/17 0744 07/02/17 0744 Imaging Last Impressions Renal Ultrasound 06/30/17 0000 Signed Impressions: Service Date/Time: June 09:05 - CONCLUSION: 1. Echogenic kidneys characteristic of medical renal disease. Small renal cysts. No hydronephrosis. Simon Rowan MD Abdomen/Pelvis CT 06/28/17 0038 Signed Impressions: Service Date/Time: Wednesday, June 28, 2017 01:10 - CONCLUSION: 1. The liver remains cirrhotic in appearance with no focal lesion. 2. Mild splenomegaly again noted. 3. 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 4. Small bilateral pleural effusions are noted right greater the left. Steve Jones MD Chest X-Ray 06/27/17 2232 Signed Impressions: Service Date/Time: Tuesday, June 27, 2017 22:33 - CONCLUSION: Small bilateral pleural effusions stable from prior. No focal infiltrates seen. Ezekiel Ritter MD Objective Remarks GENERAL: patient sitting up in chair. Appears comfortable.alert and oriented 3. No change from day prior. CARDIOVASCULAR: Regular rate and rhythm without murmurs, gallops, or rubs. RESPIRATORY: Breath sounds equal bilaterally. No accessory muscle use. GASTROINTESTINAL: Abdomen soft, non-tender, nondistended. MUSCULOSKELETAL: No cyanosis. patient had trace edema yesterday. No edema. BACK: Nontender without obvious deformity. No CVA tenderness. A/P Assessment and Plan 82-year-old female who presented with atrial fibrillation, RVR, CHF exacerbation.Atrial fibrillation is now controlled, on an regulation, however discharge held due to acute kidney injury likely secondary to IV contrast. Acute kidney injury. Creatinine 2.85 on 07/01. Suspect secondary to IV contrast. On IVF. Kidney function improving. Continue to monitor closely and expect to improve. Constipation. Laxatives ordered. Hypertension. Blood pressure acceptable. Continue medications as ordered. Continue to monitor. Atrial fibrillation. Heart rate controlled. Continue diltiazem. Cardiology following. Appreciate assistance. Continue eliquis. clear to discharge by cardiology. Diabetes mellitus. Continue insulin sliding scale. DVT prophylaxis. As per cardiology. Discharge Planning DC when kidney function improves at baseline Fe Wiley MD Jul 02, 2017 08:48
[2017-07-02] MEDS: SODIUM CHLOR 0.9% 1000 ML INJ 1,000 ML IV SCH (10:45)
--- NOTE | 2017-07-02 10:58 | HHI.NPPN ---
Subjective History of Present Illness This patient is an 82-year-old female with a history of multiple medical problems including apparent chronic kidney disease given elevations in her creatinine level previously with a renal ultrasound this admission showing evidence of medical renal disease. She also has a history of cirrhosis, diastolic dysfunction with CHF, diabetes mellitus. Apparently patient was experiencing increasing fluid retention advised to increase her diuretic therapy prior to this admission. Subsequently developed nausea and vomiting with diarrhea and presented to the hospital with tachycardia related to atrial fibrillation with a rapid ventricular rate also. Previously her creatinine level had range between 0.95 and 1.34. On presentation creatinine level I.51. Of interest she had a CAT scan utilizing IV contrast on 06/28/17. Creatinine level has continued to deteriorate being 2.67 today. In addition patient has been using Aleve 2 pills weekly on average prior to admission. Interval History Pt states she is feeling well today. No new complaints. (Kandy Cowart) Review of Systems General General Remarks Denies any complaints (Kandy Cowart) Objective Data Data 07/01/17 07/02/17 19:00 07:00 Intake Total 300 ml Balance 300 ml Intake Oral 300 ml # Voids 1 # Bowel Movements 0 Vital Signs Date Time Temp Pulse Resp B/P Pulse Ox O2 Delivery O2 Flow Rate FiO2 07/02/17 08:00 97.6 90 16 138/87 98 07/02/17 08:00 96 07/02/17 06:00 96 07/02/17 05:00 92 07/02/17 04:42 80 18 138/78 95 07/02/17 04:00 84 07/02/17 03:00 87 07/02/17 02:00 80 07/02/17 01:00 76 07/02/17 00:00 70 07/01/17 23:30 69 16 134/71 98 07/01/17 23:00 60 07/01/17 22:00 60 07/01/17 21:00 60 07/01/17 20:39 98 Nasal Cannula 3.00 07/01/17 20:00 60 07/01/17 19:30 99.0 60 18 110/64 99 07/01/17 19:00 56 07/01/17 16:00 98.2 86 16 128/75 96 07/01/17 15:58 60 07/01/17 12:00 98.1 100 16 146/90 (Kandy Cowart) -: 07/02/17 0744 07/02/17 0744 Imaging Last Impressions Renal Ultrasound 06/30/17 0000 Signed Impressions: Service Date/Time: June 09:05 - CONCLUSION: 1. Echogenic kidneys characteristic of medical renal disease. Small renal cysts. No hydronephrosis. Simon Rowan MD Abdomen/Pelvis CT 06/28/17 0038 Signed Impressions: Service Date/Time: Wednesday, June 28, 2017 01:10 - CONCLUSION: 1. The liver remains cirrhotic in appearance with no focal lesion. 2. Mild splenomegaly again noted. 3. 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 4. Small bilateral pleural effusions are noted right greater the left. Steve Jones MD Chest X-Ray 06/27/171 Signed Impressions: Service Date/Time: Tuesday, June 27, 2017 22:33 - CONCLUSION: Small bilateral pleural effusions stable from prior. No focal infiltrates seen. Ezekiel Ritter MD Medication Review Current Medications Medications (Trade) Dose Ordered Sig/Marlon Route Start Time Stop Time Status Last Admin (Cardizem Inj/NS Inj) 125 ml @ 0 mls/hr TITRATE IV 06/27/17 23:15 06/28/17 00:43 (NS Flush) 2 ml UNSCH PRN IV FLUSH 06/28/17 02:30 (NS Flush) 2 ml BID IV FLUSH 06/28/17 09:00 07/02/17 08:19 (Zofran Inj) 4 mg Q6H PRN IVP 06/28/17 02:30 (Narcan Inj) 0.4 mg UNSCH PRN IV 06/28/17 02:30 (Symbicort 160-4.5 Inh) 2 puff BID INH 06/28/17 09:00 07/02/17 08:19 (Cardizem) 180 mg TID PO 06/28/17 09:00 07/02/17 08:18 (Synthroid) 125 mcg DAILY@06 PO 06/28/17 06:00 07/02/17 06:18 (Lopressor) 50 mg Q8H PO 06/28/17 06:00 07/02/17 06:18 (Pepcid) 20 mg DAILY PO 06/28/17 09:00 07/02/17 08:19 (D50w (Vial) Inj) 50 ml UNSCH PRN IV 06/28/17 04:15 (Glucagon Inj) 1 mg UNSCH PRN OTHER 06/28/17 04:15 (Chlorhexidine 2% Cloth) 3 pack DAILY@04 TOPICAL 06/29/17 04:00 07/03/17 04:01 (Chlorhexidine 2% Cloth) 3 pack UNSCH PRN TOPICAL 06/28/17 09:15 07/03/17 09:08 Miscellaneous Information Patient in critical care unit? Ass... Q361D .XX 06/28/17 09:15 06/28/17 09:15 (Eliquis) 2.5 mg BID PO 06/28/17 21:00 07/02/17 08:19 Ferrous Sulfate 325 mg 325 mg DAILY PO 07/01/17 16:00 07/02/17 08:19 (NS 1000 ml Inj) 1,000 ml @ 42 mls/hr [id number] IV 07/02/17 10:45 (Kandy Cowart) Physical Exam General Appearance: No Acute Distress, Comfortable (Kandy Cowart) Pulmonary Resp Exam: Clear Bilaterally, Breath Sounds Equal (Kandy Cowart) Cardiology CV Exam: Irregular (Kandy Cowart) Gastrointestinal/Abdomen GI Exam: Soft, Non-Tender (Kandy Cowart) Integumentary Skin Exam: Clear, Warm (Kandy Cowart) Extremeties Extremities Exam: Trace Edema (bilat ankles) (Kandy Cowart) Neurologic Neuro Exam: Alert, Awake (Kandy Cowart) Assessment/Plan Problem List: (1) Acute kidney injury superimposed on chronic kidney disease Plan: SCr improved today and hopefully will continue on this trend. Noted hypocomplementemia. Will check RUSSELL, dsDNA, cryoglobulin. Given bland urinalysis, likely not related to a GN Has HCV and is unclear if she had treatment in the past. Medications should be adjusted for the patient's estimated GFR if clinically indicated. Avoid agents with significant potential for nephrotoxicity possible including NSAIDs for analgesia, iodine contrast agents. Gadolinium is contraindicated if the GFR is below 30 (2) CKD (chronic kidney disease) stage 3, GFR 30-59 ml/min Plan: Most likely related to nephrosclerosis of hypertension and aging with possible superimposed diabetic nephropathy. (3) Anemia Plan: SPEP, [place] pending Stable Hgb (4) Hepatitis C Plan: Noted positive history with PCR positive in October. Uncertain of status of this. Not likely related to renal dysfunction given bland urinalysis, however, would recommend GI f/u on this. Will defer to primary. (5) Cirrhosis (6) Diastolic CHF Plan: Clinically compensated at present. (Kandy Cowart) Plan The patient's creatinine level stable or improved tomorrow discharge okay from renal point of view. As far as diuretic therapy is concerned clarification required regarding whether or not the patient was taking torsemide, furosemide or both based on medication list in the EMR. I would recommend discharging the patient either on furosemide 20 mg twice a day or torsemide 20 mg daily but not both. Follow-up post discharge recommended with either cardiology and/or nephrology 2 weeks post discharge. Patient will be seen when necessary in house at this point in time. Please call with any questions. The exam, history, and the medical decision-making described in the above note were completed with the assistance of the CALI. I reviewed and agree with the findings presented. I attest that I had a [id number] encounter with the patient on the same day, and personally performed and documented my assessment and findings in the medical record. (Terry Manuel MD) Kandy Cowart Jul 02, 2017 10:58 Terry Manuel MD Jul 02, 2017 14:23
--- NOTE | 2017-07-02 14:06 | PD.CARD.PN ---
Subjective Subjective Remarks Patient sleeping, per the RN, no cardiac issues. Cr improving (Rosamaria Lowry ) Objective Medications Current Medications Medications (Trade) Dose Ordered Sig/Marlon Route Start Time Stop Time Status Last Admin (Cardizem Inj/NS Inj) 125 ml @ 0 mls/hr TITRATE IV 06/27/17 23:15 06/28/17 00:43 (NS Flush) 2 ml UNSCH PRN IV FLUSH 06/28/17 02:30 (NS Flush) 2 ml BID IV FLUSH 06/28/17 09:00 07/02/17 08:19 (Zofran Inj) 4 mg Q6H PRN IVP 06/28/17 02:30 (Narcan Inj) 0.4 mg UNSCH PRN IV 06/28/17 02:30 (Symbicort 160-4.5 Inh) 2 puff BID INH 06/28/17 09:00 07/02/17 08:19 (Cardizem) 180 mg TID PO 06/28/17 09:00 07/02/17 12:36 (Synthroid) 125 mcg DAILY@06 PO 06/28/17 06:00 07/02/17 06:18 (Lopressor) 50 mg Q8H PO 06/28/17 06:00 07/02/17 13:50 (Pepcid) 20 mg DAILY PO 06/28/17 09:00 07/02/17 08:19 (D50w (Vial) Inj) 50 ml UNSCH PRN IV 06/28/17 04:15 (Glucagon Inj) 1 mg UNSCH PRN OTHER 06/28/17 04:15 (Chlorhexidine 2% Cloth) 3 pack DAILY@04 TOPICAL 06/29/17 04:00 07/03/17 04:01 (Chlorhexidine 2% Cloth) 3 pack UNSCH PRN TOPICAL 06/28/17 09:15 07/03/17 09:08 Miscellaneous Information Patient in critical care unit? Ass... [id number] .XX 06/28/17 09:15 06/28/17 09:15 (Eliquis) 2.5 mg BID PO 06/28/17 21:00 07/02/17 08:19 Ferrous Sulfate 325 mg 325 mg DAILY PO 07/01/17 16:00 07/02/17 08:19 (NS 1000 ml Inj) 1,000 ml @ 42 mls/hr [id number] IV 07/02/17 10:45 07/02/17 10:45 Vital Signs / I&O Vital Signs Date Time Temp Pulse Resp B/P Pulse Ox O2 Delivery O2 Flow Rate FiO2 07/02/17 12:00 98.3 87 16 126/78 96 07/02/17 12:00 80 07/02/17 11:03 88 07/02/17 11:00 90 07/02/17 10:00 94 07/02/17 09:00 92 07/02/17 08:00 97.6 90 16 138/87 98 07/02/17 08:00 96 07/02/17 07:00 96 07/02/17 06:00 96 07/02/17 05:00 92 07/02/17 04:42 80 18 138/78 95 07/02/17 04:00 84 07/02/17 03:00 87 07/02/17 02:00 80 07/02/17 01:00 76 07/02/17 00:00 70 07/01/17 23:30 69 16 134/71 98 07/01/17 23:00 60 07/01/17 22:00 60 07/01/17 21:00 60 07/01/17 20:39 98 Nasal Cannula 3.00 07/01/17 20:00 60 07/01/17 19:30 99.0 60 18 110/64 99 07/01/17 19:00 56 07/01/17 16:00 98.2 86 16 128/75 96 07/01/17 15:58 60 I/O 07/01/17 07/01/17 07/01/17 07/02/17 07/02/17 07/02/17 07:00 15:00 23:00 07:00 15:00 23:00 Intake Total 240 ml 300 ml Balance 240 ml 300 ml Intake Oral 240 ml 300 ml # Voids 2 1 # Bowel Movements 0 Physical Exam GENERAL: Elderly female, resting SKIN: Warm and dry. HEAD: Normocephalic. EYES: No scleral icterus. No injection or drainage. NECK: Supple, trachea midline. CARDIOVASCULAR: Irreg irreg. left chest PPM RESPIRATORY: Diminished bases, some rales GASTROINTESTINAL: Abdomen soft, non-tender, nondistended. MUSCULOSKELETAL: No cyanosis, Mild BLE edema BACK: Nontender without obvious deformity. No CVA tenderness. Laboratory Laboratory Tests Test 07/02/17 07/02/17 01:31 07:44 Complement C3 56 MG/DL Complement C4 7 MG/DL White Blood Count 6.1 TH/MM3 Red Blood Count 3.20 MIL/MM3 Hemoglobin 9.5 GM/DL Hematocrit 28.6 % Mean Corpuscular Volume 89.4 FL Mean Corpuscular Hemoglobin 29.6 PG Mean Corpuscular Hemoglobin 33.1 % Concent Red Cell Distribution Width 15.5 % Platelet Count 110 TH/MM3 Mean Platelet Volume 9.1 FL Sodium Level 137 MEQ/L Potassium Level 4.0 MEQ/L Chloride Level 100 MEQ/L Carbon Dioxide Level 27.8 MEQ/L Anion Gap 9 MEQ/L Blood Urea Nitrogen 45 MG/DL Creatinine 2.14 MG/DL Estimat Glomerular Filtration 22 ML/MIN Rate Random Glucose 212 MG/DL Calcium Level 8.4 MG/DL Phosphorus Level 3.9 MG/DL Albumin 2.8 GM/DL Imaging Last 72 hours Impressions Renal Ultrasound 06/30/17 0000 Signed Impressions: Service Date/Time: June 09:05 - CONCLUSION: 1. Echogenic kidneys characteristic of medical renal disease. Small renal cysts. No hydronephrosis. Simon Rowan MD (Rosamaria Lowry) Assessment and Plan Assessment and Plan Chronic atrial fibrillation. CHADSVAC 7. Stroke risk 9.6% in the absence of thromboprophylaxis. Afib RVR on admission likely due to dehydration Chronic diastolic CHF exacerbation ASHD history PPM base rate 60 bpm PAD Diabetes HLD CASSIE resolving PLAN: Continue rate control therapy Outpatient diuretic therapy to be determined by Nephrology. patient has history of CHF We continue to monitor risk vs benefit of oral AC. The patient is clear from cardiac standpoint for discharge. Assessment and plan discussed with Dr Day (Rosamaria Lowry) Assessment and Plan The exam, history, and the medical decision-making described in the above note were completed with the assistance of the mid-level provider. I reviewed and agree with the findings presented. I attest that I had a [id number] encounter with the patient on the same day, and personally performed and documented my assessment and findings in the medical record. Overall doing better and stable cv . (Chuck Day MD) Rosamaria Lowry Jul 02, 2017 14:06 Chuck Day MD Jul 03, 2017 17:04
[2017-07-03] VITALS (22 sets, daily range): BP systolic 114–170; BP diastolic 68–87; PULSE 60–119; RESP 18–20; TEMP 98–99; O2SAT 93–100
[2017-07-03] MEDS: CHLORHEXIDINE GLUCONATE 2 % 1 PACK (2 CLOTHS)(taper/protocol) TOPICAL SCH (03:02)
[2017-07-03 03:52] LABS: KAPPA/LAMBDA FREE 1.82 (0.26-1.65)
[2017-07-03] MEDS: RESP: IPRATROPIUM 0.5 MG/2.5 ML NEB NEB SCH ×3 (04:12→15:46)
[2017-07-03] MEDS: LEVOTHYROXINE SODIUM 125 MCG TAB PO SCH (05:55)
[2017-07-03] MEDS: METOPROLOL TARTRATE 50 MG TAB PO SCH ×2 (05:55→13:52)
[2017-07-03] MEDS: INSULIN ASPART SUPPLEMENTAL SCALE SQ SCH ×3 (06:00→16:37)
[2017-07-03] MEDS: SODIUM CHLORIDE 0.9% FLUSH 10 ML FLUSH IV FLUSH SCH (09:00)
[2017-07-03] MEDS: BUDESONIDE-FORMOTEROL 160/4.5 MCG INHALER INH SCH (09:00)
[2017-07-03] MEDS: APIXABAN 2.5 MG TABLET PO SCH (10:13)
[2017-07-03] MEDS: DILTIAZEM HCL 90 MG TAB PO SCH ×2 (10:13→12:01)
[2017-07-03] MEDS: FAMOTIDINE 20 MG TAB PO SCH (10:13)
[2017-07-03] MEDS: FERROUS SULFATE 325 MG (65 MG ELEMENTAL IRON) TAB PO SCH (10:13)
[2017-07-03] MEDS: SODIUM CHLOR 0.9% 1000 ML INJ 1,000 ML IV SCH (10:16)
--- NOTE | 2017-07-03 11:10 | HHI.DCPOC ---
Discharge Care Plan Goals to Promote Your Health * To prevent worsening of your condition and complications a call medications as prescribed * To maintain your health at the optimal level follow all discharge instructions Directions to Meet Your Goals Take your medications as prescribed Follow your dietary instruction Follow activity as directed Keep your appointments as scheduled Take your immunizations and boosters as scheduled If your symptoms worsen call your PCP, if no PCP go to Urgent Care Center or Emergency Room Smoking is Dangerous to Your Health. Avoid second hand smoke Call the 24-hour hour crisis hotline for domestic abuse at Annika Hernández MD R3 Jul 03, 2017 11:10
--- NOTE | 2017-07-03 11:17 | HHI.DS ---
PCP Discharge Summary Admission Date Jun 28, 2017 at 02:09 Discharge Date: Jul 03, 2017 Admitting Diagnosis Dehydration from n/v/d, afib with rvr (1) Atrial fibrillation with rapid ventricular response ICD Code: I48.91 Diagnosis: Principal (2) Acute kidney injury superimposed on chronic kidney disease ICD Code: N17.9 Diagnosis: Principal Procedures None Brief History - From Admission History from patient, ER physician communication, and review of medical records. Patient is known to me from her prior hospitalization on April 29, 2017, and March 10, 2017. Patient is only Tam[place]-speaking and daughter at the bedside who lives with her translates for her with her permission. However both patient and her daughter are quite poor historians. Daughter stated that she and her brought patient to the hospital because on routine vital check at home, she noted her mom to be having heart rate of 151. She also reports of nausea vomiting and diarrhea which started in the past 24 hours. She reports that the vomiting was several times at least 10 times a day. Similarly for diarrhea as well. However denies any blood in her stool or in her urine. Denies any coffee- ground color vomits/melena/hematochezia. Reports of associated abdominal pains which are generalized. Denies fever. Denies cough/urinary burning or pain on urination or frequent urination. Reports that the stool is extremely foul smiling which is not her normal. Patient has been home for the past 1 month or so. She has frequent hospitalizations since January. Daughter also reported that her sister is sick with similar symptoms and was in hospital for diarrhea. Daughter stated the patient's lower extremities have been swelling up in the past month and they had gone to the pulmonary doctor recently who told her to increase the water pill to twice a day dose for the next 4 days. She stated that they did that regimen and it had worked. However after a few days, her legs were swelling again and they had seen her primary care doctor who gave her the same regimen with a water pill. She stated she took the water pills twice a day for 4 days he can and felt much better now. Denies shortness of breath. Denies chest pains. Denies dizziness or syncopal episodes. CBC/BMP: 07/02/17 0744 07/02/17 0744 Significant Findings Laboratory Tests Test 06/30/17 07/01/17 07/02/17 07/02/17 15:35 05:30 01:31 07:44 Urine Leukocyte Esterase TRACE (NEG) Urine Eosinophils RARE /HPF (NONE SEEN) Sodium Level 135 MEQ/L (136-145) Chloride Level 97 MEQ/L (98-107) Blood Urea Nitrogen 51 MG/DL (7-18) 45 MG/DL (7-18) Creatinine 2.85 MG/DL 2.14 MG/DL (0.50-1.00) (0.50-1.00) Estimat Glomerular Filtration 16 ML/MIN (>89) 22 ML/MIN (>89) Rate Random Glucose 209 MG/DL 212 MG/DL (74-106) (74-106) Percent Iron Saturation 18.4 % (20-50) Total Protein 8.8 GM/DL (6.0-7.6) Albumin 3.3 GM/DL 2.8 GM/DL (3.4-5.0) (3.4-5.0) Albumin/Globulin Ratio 0.81 (1.39-2.23) Gamma Globulins 3.07 GM/DL (0.50-1.39) Parathyroid Hormone (Intact) 109.4 PG/ML (12.4-76.8) Complement C3 73 MG/DL 56 MG/DL (90-180) (90-180) Hepatitis C Antibody REACTIVE (NEGATIVE) Free Gause Light Chains 189.07 mg/L (3.3-19.4) Free Lambda Light Chains 103.90 mg/L (5.7-26.3) Free Gause/Lambda Light Chain 1.82 Ratio (0.26-1.65) Complement C4 7 MG/DL (10-40) Red Blood Count 3.20 MIL/MM3 (4.00-5.30) Hemoglobin 9.5 GM/DL (11.6-15.3) Hematocrit 28.6 % (35.0-46.0) Platelet Count 110 TH/MM3 (150-450) Calcium Level 8.4 MG/DL (8.5-10.1) Imaging Last Impressions Renal Ultrasound 06/30/17 0000 Signed Impressions: Service Date/Time: June 09:05 - CONCLUSION: 1. Echogenic kidneys characteristic of medical renal disease. Small renal cysts. No hydronephrosis. Simon Rowan MD Abdomen/Pelvis CT 06/28/17 0038 Signed Impressions: Service Date/Time: Wednesday, June 28, 2017 01:10 - CONCLUSION: 1. The liver remains cirrhotic in appearance with no focal lesion. 2. Mild splenomegaly again noted. 3. 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 4. Small bilateral pleural effusions are noted right greater the left. Steve Jones MD Chest X-Ray 06/27/17 2231 Signed Impressions: Service Date/Time: Tuesday, June 27, 2017 22:33 - CONCLUSION: Small bilateral pleural effusions stable from prior. No focal infiltrates seen. Ezekiel Ritter MD PE at Discharge GENERAL: patient sitting up in chair. Appears comfortable.alert and oriented 3. No change from day prior. CARDIOVASCULAR: Regular rate and rhythm without murmurs, gallops, or rubs. RESPIRATORY: Breath sounds equal bilaterally. No accessory muscle use. GASTROINTESTINAL: Abdomen soft, non-tender, nondistended. MUSCULOSKELETAL: No cyanosis. patient had trace edema yesterday. No edema. BACK: Nontender without obvious deformity. No CVA tenderness. Hospital Course 82-year-old female who presented with atrial fibrillation, RVR, CHF exacerbation. Atrial fibrillation is now controlled, on anticoagulation, however discharge held due to acute kidney injury likely secondary to IV contrast. Acute kidney injury. Creatinine 2.85 on 07/01. Suspect secondary to IV contrast. On IVF. Kidney function improving. Seen by Nephrology who cleared patient for dc as her Cr is improving. Repeat BMP 2-3 days. Constipation. Laxatives ordered. Hypertension. Blood pressure acceptable. Continue medications as ordered. Continue to monitor. Atrial fibrillation. Heart rate controlled. Continue diltiazem. Continue Metoprolol. Continue eliquis. clear to discharge by cardiology. Diabetes mellitus. SSI in hospital. Continue home medications on dc. Pt Condition on Discharge: Stable Discharge Disposition: Discharge Home Discharge Time: <= 30 minutes Discharge Instructions DIET: Follow Instructions for: Heart Healthy Diet Activities you can perform: Regular-No Restrictions Follow up Referrals: Nephrology with Kaleb PCP Follow-up - 1 Week New Orders: BASIC METABOLIC PROF - 2-3 Days Continued Medications: Albuterol 8.5 GM Inh (Proair Hfa 8.5 GM Inh) 90 Mcg/Act Aer 1 PUFF INH BID 108 mcg/actuation PRN SHORTNESS OF BREATH #1 Ref 0 INHALER Alendronate (Alendronate) 70 Mg Tab 70 MG PO Q7D Osteporosis Treatment #4 Ref 0 TAB Apixaban (Eliquis) 2.5 Mg Tab 2.5 MG PO BID Blood Clot Prevention Ref 0 TAB Arformoterol Neb (Brovana Neb) 15 Mcg/2 Ml Vial 1 NEBULE NEB BID Maintenance treatment of bronchoconstriction in COPD. Broncospasm #60 NEBULE Betamethasone Dipropionate Aug Topical (Diprolene Topical) 0.05% Oint 1 APPLIC TOPICAL BID Dermatoses #15 Ref 0 GM Budesonide-Formoterol Inh (Symbicort Inh) 160-4.5 Mcg/Act Aero 2 PUFF INH BID #1 Ref 0 INHALER Diltiazem (Diltiazem) 90 Mg Tab 180 MG PO TID Angina #120 Ref 0 TAB Ferrous Gluconate (Ferrous Gluconate) 325 Mg Tab 325 MG PO TID Nutritional Supplement #30 Ref 0 TAB Furosemide (Furosemide) 20 Mg Tab 20 MG PO BID #60 Ref 0 TAB Glimepiride (Glimepiride) 1 Mg Tab 1 MG PO BID Take with breakfast or first main meal Blood Sugar Management #30 Ref 0 TAB Levalbuterol 15 GM Inh (Xopenex Hfa 15 GM Inh) 45 Mcg/Act Aer 45 MCG INH Q6HR Shake well before using. (1 puff = 45 mcg) #1 Ref 0 INHALER Levothyroxine (Levothyroxine) 125 Mcg Tab 125 MCG PO DAILY Thyroid #30 Ref 0 TAB Lisinopril (Lisinopril) 5 Mg Tab 5 MG PO DAILY Blood Pressure Management #30 Ref 0 TAB Metoprolol Succinate ER 24 HR (Metoprolol Succinate ER 24 HR) 50 Mg Tab 50 MG PO TID #30 Ref 0 TAB Potassium Chloride ER (Potassium Chloride ER) 10 Meq Cap 10 MEQ PO DAILY Electrolyte Replacement #30 Ref 0 CAP Ranitidine (Zantac) 150 Mg Tab 150 MG PO DAILY Reduce Stomach Acid #30 Ref 0 TAB Sennosides (Senna Lax) 8.6 Mg Tab 17.2 MG PO DAILY Constipation #30 TAB Sitagliptin-Metformin (Janumet) 50-1,000 Mg Tab 1 TAB PO BID Blood Sugar Management #60 Ref 0 TAB Discontinued Medications: Torsemide (Torsemide) 10 Mg Tab 10 MG PO DAILY #30 Ref 0 TAB Annika Hernández MD R3 Jul 03, 2017 11:17
[2017-07-03 13:18] LABS: HEMATOCRIT 27.2 % (35.0-46.0); MEAN CELL VOLUME 88.1 FL (80.0-100.0); MEAN CORPUSCULAR HEMOGLOBIN 30.3 PG (27.0-34.0); MEAN CORPUSCULAR HGB CONC 34.3 % (32.0-36.0); PLATELET COUNT 102 TH/MM3 (150-450); RED BLOOD COUNT 3.08 MIL/MM3 (4.00-5.30); RED CELL DISTRIBUTION WIDTH 15.8 % (11.6-17.2); REVIEW FLAG FINAL
[2017-07-03 13:41] LABS: BICARBONATE 27.7 MEQ/L (21.0-32.0); POTASSIUM 3.4 MEQ/L (3.5-5.1)
[2017-07-03] MEDS ORDERED: FURO20TA PO (15:24)
== END 2017-07-03 17:10 | disposition home or self-care (01) | DRG 308 ==
LOC: NEPC 21:53 → NEDA 06-28 02:09 → HIMN 06-28 07:00 → HCIS 06-28 20:49
PROVIDERS: ADMIT Family Medicine; ATTEND Family Medicine
DX: I48.91 Unspecified atrial fibrillation (principal); I50.33 Acute on chronic diastolic (congestive) heart failure; N17.9 Acute kidney failure, unspecified; E87.2 Acidosis; I13.0 Hypertensive heart and chronic kidney disease with heart failure and stage 1 through stage 4 chronic kidney disease, or unspecified chronic kidney disease; E11.22 Type 2 diabetes mellitus with diabetic chronic kidney disease; E86.0 Dehydration; D63.1 Anemia in chronic kidney disease; B19.20 Unspecified viral hepatitis C without hepatic coma; Z79.01 Long term (current) use of anticoagulants; E03.9 Hypothyroidism, unspecified; E78.5 Hyperlipidemia, unspecified; N18.3 Chronic kidney disease, stage 3 (moderate); I73.9 Peripheral vascular disease, unspecified; J44.9 Chronic obstructive pulmonary disease, unspecified; K21.9 Gastro-esophageal reflux disease without esophagitis; K59.00 Constipation, unspecified; K74.60 Unspecified cirrhosis of liver; M81.0 Age-related osteoporosis without current pathological fracture; I25.2 Old myocardial infarction; I25.10 Atherosclerotic heart disease of native coronary artery without angina pectoris; Z79.4 Long term (current) use of insulin; Z95.1 Presence of aortocoronary bypass graft; Z95.5 Presence of coronary angioplasty implant and graft; Z99.81 Dependence on supplemental oxygen; Z95.810 Presence of automatic (implantable) cardiac defibrillator
CPT/HCPCS: 71010; 74177; 76775; 80053; 80069; 81001; 82306; 82550; 82570; 82607; 82728; 82747; 82948; 83540; 83550; 83605; 83690; 83735; 83880; 83883; 83970; 84165; 84300; 84484; 85025; 85027; 85610; 85730; 86038; 86140; 86160; 86225; 86335; 86803; 87205; 87340; 87641; 93005; 94640; 94664; 96361; 96365; 96375; C9113; J1815; J2405; J3475; J7030; J7040; J7644; Q9967

== ENCOUNTER 2017-07-09 20:31 | Inpatient (IN) | payer MEDICARE, MEDICAID ==
[~2017-07-09] VITALS: Ht 149.9 cm; Wt 58.7 kg
[~2017-07-09 20:31] MED LIST changes: -CARD180C5 PO; +DILT90TA PO; +DIPR0.053 TOPICAL; +FERR325T72 PO; +FURO20TA PO; -GLIM4TAB PO; -LEVA0.3110 NEB; +LISI-519 PO; -METO100T PO; +METO50TA11 PO; +POTA10CA PO; -POTA10TA2 PO; -TORS20TA PO; +XOPEAER4 INH
[2017-07-09 20:37] VITALS: BP 142/86; PULSE 94; RESP 30; O2SAT 84
[2017-07-09] MEDS ORDERED: FUROSEMIDE 20 MG/2 ML VIAL IV PUSH ONE (20:45)
[2017-07-09] MEDS ORDERED: SODIUM CHLORIDE 0.9% FLUSH 10 ML FLUSH IVF PRN (20:45)
[2017-07-09] MEDS ORDERED: methylPREDNISolone SOD SUCC 125 MG/2 ML VIAL IV PUSH ONE (20:45)
[2017-07-09] MEDS: RESP: ALBUTEROL 2.5 MG/IPRATROPIUM 0.5 MG NEB (SCH) INH (21:06)
[2017-07-09 21:07] VITALS: O2SAT 98
--- NOTE | 2017-07-09 21:09 | RADRPT ---
EXAM DATE/TIME: 07/09/2017 20:46 [facility] COMPARISON: CHEST SINGLE AP, June 27, 2017, 22:33. INDICATIONS : Shortness of breath started this morning. MEDICAL HISTORY : Gastroesophageal reflux disease. Congestive heart failure. Myocardial infarction. CVA. Hypertensi on. Hepatitis c. SURGICAL HISTORY : Cholecystectomy. Hysterectomy. Pacemaker. Cardiac stent. ENCOUNTER: Initial ACUITY: 1 day PAIN SCORE: 0/10 LOCATION: Bilateral chest FINDINGS: Single AP view of the chest. Low lung volumes. Bilateral [id number] sized pleural effusions, i ncreased in size when compared to 06/27/2017. Bilateral lower lung zone atelectasis versus consolidati on. No evidence of pneumothorax. Dual lead cardiac pacemaker remains in place. CONCLUSION: Increase in size of bilateral pleural effusions. Bilateral lower lung zone atelectasis versus consoli dation are seen. Aram Scott MD on July 09, 2017 at 21:06 Board Certified Radiologist. This report was verified electronically.
[2017-07-09 21:28] LABS: AUTOMATED NEUTROPHIL # 5.5 TH/MM3 (1.8-7.7); BASOPHIL % 0.3 % (0.0-2.0); EOSINOPHIL # 0.1 TH/MM3 (0-0.4); EOSINOPHIL % 0.7 % (0.0-4.0); HEMATOCRIT 27.6 % (35.0-46.0); HEMO FLAGS DIFF FINAL; LYMPH % 12.6 % (9.0-44.0); LYMPHOCYTE # 0.9 TH/MM3 (1.0-4.8); MEAN CELL VOLUME 89.9 FL (80.0-100.0); MEAN CORPUSCULAR HEMOGLOBIN 29.5 PG (27.0-34.0); MEAN CORPUSCULAR HGB CONC 32.8 % (32.0-36.0); NEUT % 75.4 % (16.0-70.0); PLATELET COUNT 103 TH/MM3 (150-450); RED BLOOD COUNT 3.07 MIL/MM3 (4.00-5.30); RED CELL DISTRIBUTION WIDTH 16.2 % (11.6-17.2); WHITE BLOOD COUNT 7.3 TH/MM3 (4.0-11.0)
[2017-07-09 21:39] LABS: APTT (PATIENT) 25.2 SEC (24.3-30.1); INTERNATIONAL NORMALIZED RATIO 1.1 RATIO; PROTHROMBIN TIME - PATIENT 12.7 SEC (9.8-11.6)
[2017-07-09 21:49] LABS: ANION GAP 7 MEQ/L (5-15); AST (GOT) 42 U/L (15-37); BICARBONATE 25.7 MEQ/L (21.0-32.0); BLOOD UREA NITROGEN 22 MG/DL (7-18); CHLORIDE 103 MEQ/L (98-107); GLOMERULAR FILTRATION RATE 32 ML/MIN (>89); SODIUM (NA) 136 MEQ/L (136-145)
[2017-07-09 21:50] LABS: ALT (GPT) 34 U/L (10-53)
[2017-07-09 21:54] LABS: ALKALINE PHOSPHATASE 72 U/L (45-117); TOTAL BILIRUBIN ADULT 0.6 MG/DL (0.2-1.0)
[2017-07-09 22:04] LABS: CREATINE KINASE 37 U/L (26-192)
[2017-07-09 22:30] VITALS: BP 164/80; PULSE 97; RESP 16; O2SAT 96
--- NOTE | 2017-07-09 22:30 | PD ---
HPI Chief Complaint: Respiratory Distress Time Seen by Provider: 20:40 Travel History International Travel<30 days: No Contact w/Intl Traveler<30days: No Traveled to known affect area: No History of Present Illness HPI Patient is an 82-year-old female comes in complaining of shortness of breath. She has been short of breath for the past week, and has been getting progressively worse. She is a history of CHF and COPD. She was recently taken off Lasix due to issues with her kidneys during a previous admission after she received IV contrast. She says since then her legs up and swelling. She says she has been coughing up mucus. She denies fever or chills. She denies any chest pain. PFSH Past Medical History Hx Anticoagulant Therapy: Yes Arthritis: Yes (osteoporosis) Asthma: Yes Autoimmune Disease: No Blood Disorders: No Anxiety: No Depression: No Heart Rhythm Problems: Yes Cancer: No Cardiac Catheterization: Yes (10-01-09) Cardiovascular Problems: Yes High Cholesterol: No Chemotherapy: No Chest Pain: Yes Congestive Heart Failure: Yes Cirrhosis: Yes COPD: No Diabetes: Yes Patient Takes Glucophage: No Diminished Hearing: No Endocrine: Yes Gastrointestinal Disorders: Yes GERD: Yes Genitourinary: No Headaches: No Hepatitis: Yes (hep c) Hiatal Hernia: No Hypertension: Yes Immune Disorder: Yes (hepatitis C) Implanted Vascular Access Dvce: Yes Kidney Stones: No Musculoskeletal: Yes Neurologic: No Psychiatric: No Reproductive: No Respiratory: Yes Migraines: No Myocardial Infarction: Yes Radiation Therapy: No Renal Failure: No Sickle Cell Disease: No Sleep Apnea: No Thyroid Disease: Yes Ulcer: No Tetanus Vaccination: Unknown Influenza Vaccination: No Menopausal: Yes : 5 Para: 4 Miscarriage: 1 Past Surgical History Abdominal Surgery: No AICD: No Appendectomy: No Arteriovenous Shunt: No Body Medical Devices: PACEMAKER AND STENTS Cardiac Surgery: Yes (stents) Cholecystectomy: Yes Coronary Stent: Yes (x2) Ear Surgery: No Endocrine Surgery: No Eye Surgery: Yes (cataract removal ) Genitourinary Surgery: Yes (gallbladder) Gynecologic Surgery: Yes (hysterectomy) Hysterectomy: Yes Insulin Pump: No Joint Replacement: No Oral Surgery: No Pacemaker: Yes Thoracic Surgery: No Social History Alcohol Use: No Tobacco Use: No Substance Use: No Allergies-Medications (Allergen,Severity, Reaction): Coded Allergies: Penicillin (Verified Allergy, Severe, Anaphylaxis, 07/09/17) Reported Meds & Prescriptions Reported Meds & Active Scripts Active Furosemide 20 Mg Tab 20 Mg PO DAILY Senna Lax (Sennosides) 8.6 Mg Tab 17.2 Mg PO DAILY Reported Furosemide 20 Mg Tab 20 Mg PO BID Metoprolol Succinate ER 24 HR (Metoprolol Succinate) 50 Mg Tab 50 Mg PO TID Lisinopril 5 Mg Tab 5 Mg PO DAILY Diltiazem (Diltiazem HCl) 90 Mg Tab 180 Mg PO TID Glimepiride 1 Mg Tab 1 Mg PO BID Take with breakfast or first main meal Diprolene Topical (Betamethasone Dipropionate Aug Topical) 0.05% Oint 1 Applic TOPICAL BID Ferrous Gluconate 325 Mg Tab 325 Mg PO TID Potassium Chloride ER (Potassium Chloride) 10 Meq Cap 10 Meq PO DAILY Xopenex Hfa 15 GM Inh (Levalbuterol 15 GM Inh) 45 Mcg/Act Aer 45 Mcg INH Q6HR Shake well before using. (1 puff = 45 mcg) Janumet (Sitagliptin-Metformin) 50-1,000 Mg Tab 1 Tab PO BID Brovana Neb (Arformoterol Neb) 15 Mcg/2 Ml Vial 1 Nebule NEB BID Maintenance treatment of bronchoconstriction in COPD. Alendronate (Alendronate Sodium) 70 Mg Tab 70 Mg PO Q7D Proair Hfa 8.5 GM Inh (Albuterol Sulfate) 90 Mcg/Act Aer 1 Puff INH BID PRN 108 mcg/actuation Eliquis (Apixaban) 2.5 Mg Tab 2.5 Mg PO BID Zantac (Ranitidine HCl) 150 Mg Tab 150 Mg PO DAILY Levothyroxine (Levothyroxine Sodium) 125 Mcg Tab 125 Mcg PO DAILY Symbicort Inh (Budesonide/Formoterol Fumarate) 160-4.5 Mcg/Act Aero 2 Puff INH BID Review of Systems Except as stated in HPI: all other systems reviewed are Neg General / Constitutional: No: Fever, Chills HENT: No: Headaches, Lightheadedness Cardiovascular: No: Chest Pain or Discomfort Respiratory: Positive: Cough, Shortness of Breath Gastrointestinal: No: Nausea, Vomiting Musculoskeletal: Positive: Edema Skin: No Rash, No Change in Pigmentation Neurologic: No: Weakness, Dizziness Physical Exam Narrative GENERAL: Awake and alert, in no acute distress. SKIN: Focused skin assessment warm/dry. HEAD: Atraumatic. Normocephalic. EYES: Pupils equal and round. No scleral icterus. ENT: Mucous membranes pink and moist. NECK: Trachea midline. No JVD. CARDIOVASCULAR: Regular rate and rhythm. No murmur appreciated. RESPIRATORY: No accessory muscle use. Decreased breath sounds bilaterally. Breath sounds equal bilaterally. GASTROINTESTINAL: Abdomen soft, non-tender, nondistended. Hepatic and splenic margins not palpable. MUSCULOSKELETAL: No obvious deformities. No clubbing. No cyanosis. Large edema of the bilateral lower extremities. NEUROLOGICAL: Awake and alert. No obvious cranial nerve deficits. Motor grossly within normal limits. Normal speech. PSYCHIATRIC: Appropriate mood and affect; insight and judgment normal. Data Data Last Documented VS Vital Signs Date Time Temp Pulse Resp B/P Pulse Ox O2 Delivery O2 Flow Rate FiO2 07/09/17 22:30 97 16 164/80 96 Nasal Cannula 2 Orders Complete Blood Count With Diff (07/09/17 20:42) Comprehensive Metabolic Panel (07/09/17 20:42) B-Type Natriuretic Peptide (07/09/17 20:42) Act Partial Throm Time (Ptt) (07/09/17 20:42) Prothrombin Time / Inr (Pt) (07/09/17 20:42) Ckmb (Isoenzyme) Profile (07/09/17 20:42) Troponin I (07/09/17 20:42) Urinalysis - C+S If Indicated (07/09/17 20:42) Ua Includes Microscopic (07/09/17 20:42) Iv Access Insert/Monitor (07/09/17 20:42) Electrocardiogram (07/09/17 20:42) Ecg Monitoring (07/09/17 20:42) Oximetry (07/09/17 20:42) Oxygen Administration (07/09/17 20:42) Chest, Single Ap (07/09/17 20:42) Sodium Chloride 0.9% Flush (Ns Flush) (07/09/17 20:45) Albuterol-Ipratropium Neb (Duoneb Neb) (07/09/17 20:45) Furosemide Inj (Lasix Inj) (07/09/17 20:45) Methylprednisolone So Succ Inj (Solumedr (07/09/17 20:45) Admit Order (Ed Use Only) (07/09/17 ) Labs Laboratory Tests Test 07/09/17 07/09/17 21:05 23:25 White Blood Count 7.3 TH/MM3 Red Blood Count 3.07 MIL/MM3 Hemoglobin 9.0 GM/DL Hematocrit 27.6 % Mean Corpuscular Volume 89.9 FL Mean Corpuscular Hemoglobin 29.5 PG Mean Corpuscular Hemoglobin 32.8 % Concent Red Cell Distribution Width 16.2 % Platelet Count 103 TH/MM3 Mean Platelet Volume 8.8 FL Neutrophils (%) (Auto) 75.4 % Lymphocytes (%) (Auto) 12.6 % Monocytes (%) (Auto) 11.0 % Eosinophils (%) (Auto) 0.7 % Basophils (%) (Auto) 0.3 % Neutrophils # (Auto) 5.5 TH/MM3 Lymphocytes # (Auto) 0.9 TH/MM3 Monocytes # (Auto) 0.8 TH/MM3 Eosinophils # (Auto) 0.1 TH/MM3 Basophils # (Auto) 0.0 TH/MM3 CBC Comment DIFF FINAL Differential Comment Prothrombin Time 12.7 SEC Prothromb Time International 1.1 RATIO Ratio Activated Partial 25.2 SEC Thromboplast Time Sodium Level 136 MEQ/L Potassium Level 4.0 MEQ/L Chloride Level 103 MEQ/L Carbon Dioxide Level 25.7 MEQ/L Anion Gap 7 MEQ/L Blood Urea Nitrogen 22 MG/DL Creatinine 1.56 MG/DL Estimat Glomerular Filtration 32 ML/MIN Rate Random Glucose 174 MG/DL Calcium Level 8.4 MG/DL Total Bilirubin 0.6 MG/DL Aspartate Amino Transf 42 U/L (AST/SGOT) Alanine Aminotransferase 34 U/L (ALT/SGPT) Alkaline Phosphatase 72 U/L Total Creatine Kinase 37 U/L Troponin I LESS THAN 0.02 NG/ML B-Type Natriuretic Peptide 1073 PG/ML Total Protein 8.5 GM/DL Albumin 3.2 GM/DL Urine Color YELLOW Urine Turbidity CLEAR Urine pH 5.5 Urine Specific [employer] 1.010 Urine Protein TRACE mg/dL Urine Glucose (UA) NEG mg/dL Urine Ketones NEG mg/dL Urine Occult Blood NEG Urine Nitrite NEG Urine Bilirubin NEG Urine Urobilinogen LESS THAN 2.0 MG/DL Urine Leukocyte Esterase SMALL Urine RBC 2 /hpf Urine WBC 1 /hpf Urine Squamous Epithelial 1 /hpf Cells Urine Hyaline Casts 10 /lpf Urine Mucus FEW /lpf Microscopic Urinalysis Comment CULT NOT INDICATED MDM Medical Decision Making Medical Screen Exam Complete: Yes Emergency Medical Condition: Yes Medical Record Reviewed: Yes Interpretation(s) ECG shows A. fib at a rate of 82, no ST elevation or depression. Differential Diagnosis COPD vs pneumonia vs CHF exacerbation Narrative Course Patient is a 82 year old female who comes in complaining of SOB. Exam shows decreased breath sounds and bilateral lower extremity edema. IV established, labs sent. Patient connected to the manager cardiac cath. Patient had an oxygen saturation of 84% on room air on arrival. She was placed on oxygen via nasal cannula with improvement of her saturation. Given 3 duo nebs as well as a dose of Solu-Medrol. Given 20 mg of Lasix. Chest x-ray shows bilateral pleural effusions. Labs show no acute abnormalities. Patient will be admitted for further management. Diagnosis Primary Impression: COPD (chronic obstructive pulmonary disease) Qualified Code: J44.1 - Chronic obstructive pulmonary disease with acute exacerbation Additional Impression: CHF exacerbation Qualified Code: I50.23 - Acute on chronic systolic congestive heart failure Admitting Information Admitting Physician Requests: Admit Condition: Stable Bia Harden MD Jul 09, 2017 22:30
[2017-07-09 23:52] LABS: BLOOD, URINE NEG (NEG); COMMENT (UR) CULT NOT INDICATED; CULTURE IF INDICATED CULT NOT INDICATED; GLUCOSE,URINE NEG (NEG); HYALINE CAST, URINE 10 /lpf (RARE); KETONE, URINE NEG (NEG); MUCUS URINE FEW /lpf (OCC); NITRITE,URINE NEG (NEG); PH, URINE 5.5 (5.0-8.5); SQUAMOUS EPITHELIAL CELL URINE 1 /hpf (0-5); URINE COLOR YELLOW (YELLW/STRAW)
[2017-07-10] VITALS (13 sets, daily range): BP systolic 119–170; BP diastolic 62–110; PULSE 66–136; RESP 16–20; TEMP 97.1–101.2; O2SAT 90–99
[2017-07-10] MEDS ORDERED: MORPHINE SULFATE 4 MG/ML INJ IV PRN (00:45)
[2017-07-10] MEDS ORDERED: SENNOSIDES 8.6 MG TAB PO PRN (00:45)
[2017-07-10] MEDS ORDERED: ACETAMINOPHEN/HYDROcodone 325 MG/5 MG TAB PO PRN (00:45)
[2017-07-10] MEDS ORDERED: ACETAMINOPHEN 325 MG TAB PO PRN (00:45)
[2017-07-10] MEDS ORDERED: SODIUM CHLORIDE 0.9% FLUSH 10 ML FLUSH IV FLUSH PRN (00:45)
[2017-07-10] MEDS ORDERED: RESP: ALBUTEROL 2.5 MG/IPRATROPIUM 0.5 MG NEB (PRN) NEB (00:45)
[2017-07-10] MEDS ORDERED: BISACODYL 10 MG SUPP RECTAL PRN (00:45)
[2017-07-10] MEDS ORDERED: LACTULOSE SYRUP 20 GM/30 ML CUP PO PRN (00:45)
[2017-07-10] MEDS ORDERED: MAGNESIUM HYDROXIDE SUSP 30 ML CUP PO PRN (00:45)
[2017-07-10] MEDS ORDERED: ONDANSETRON HCL 4 MG/2 ML VIAL IVP PRN (00:45)
[2017-07-10] MEDS ORDERED: GLUCAGON 1 MG/ML VIAL OTHER PRN (00:45)
[2017-07-10] MEDS ORDERED: DEXTROSE 50% IN WATER 50 ML VIAL(D50) IV PRN (00:45)
--- NOTE | 2017-07-10 01:18 | HHI.HP ---
[facility] BELINDA Lopez Admission Diagnosis CHF, COPD Diagnoses: (1) CHF (congestive heart failure) Diagnosis: Principal (2) COPD (chronic obstructive pulmonary disease) Diagnosis: Principal (3) Hypoxia Diagnosis: Principal (4) Renal insufficiency Diagnosis: Principal (5) A-fib Diagnosis: Principal (6) DM (diabetes mellitus) Diagnosis: Principal Travel History International Travel<30 Days: No Contact w/Intl Traveler <30 Da: No Traveled to Known Affected Are: No History of Present Illness This is an 82-year-old female with a PMH of HTN, CHF (Echo 05/11/17 w/ EF 60-65% , Severe Pulm HTN >70mmHg), A-fib on Eliquis, Hepatitis C, Hyperlipidemia and DM who was brought to the ER secondary to c/o SOB. On arrival, O2 sat 84% on RA , noted to have wheezing on exam. BP 142/86, HR 94. Recent admit 06/28-07/03/17 for CHF Exacerbation, Afib w/ RVR and CASSIE. States diuretics recently d/c'd because of kidney function. Per review of previous records, Torsemide discontinued at time of d/c, however Lasix continued. CBC at baseline. Platelets 103, previously 102 on 07/03/17. Creatinine 1.56, previously 1.48 on 07/03/17. Troponin negative. BNP 1073. INR 1.1. UA with small LE, minimal bacteriuria. CHF with increased size of bilateral pleural effusions, bilateral lower lung zone atelectasis versus consolidation. S/p Solu-Medrol and Lasix 20mg IV in ER w/ good diuresis. Review of Systems Except as stated in HPI: all other systems reviewed are Neg ROS: 14 point review of systems otherwise negative. Past Family Social History Past Medical History PMH: HTN, CHF (Echo 05/11/17 w/ EF 60-65%, Severe Pulm HTN >70mmHg), A-fib on Eliquis, Hepatitis C, Hyperlipidemia and DM Past Surgical History PAST SURGICAL HISTORY: Cardiac Stent, Cholecystectomy, Hysterectomy, Pacemaker Allergies: Coded Allergies: Penicillin (Verified Allergy, Severe, Anaphylaxis, 07/09/17) Family History PAST FAMILY HISTORY: Reviewed, positive for DM. Social History PAST SOCIAL HISTORY: Negative for alcohol, tobacco or drugs. Physical Exam Vital Signs Vital Signs Date Time Temp Pulse Resp B/P Pulse Ox O2 Delivery O2 Flow Rate FiO2 07/09/17 22:30 97 16 164/80 96 Nasal Cannula 2 07/09/17 21:07 98 Nasal Cannula 2.00 07/09/17 20:40 95 Nasal Cannula 3 07/09/17 20:37 94 30 142/86 84 Physical Exam PE: GENERAL: Elderly female in no acute distress. HEENT: PERRLA, EOMI. No scleral icterus or conjunctival pallor. No lid lag or facial droop. CARDIOVASCULAR: Regular rate and rhythm. No obvious murmurs to auscultation. No chest tenderness to palpation. RESPIRATORY: No obvious rhonchi. Occasional wheezing. Clear to auscultation. Decreased breath sounds equal bilaterally. GASTROINTESTINAL: Abdomen soft, non-tender, nondistended. BS normal. MUSCULOSKELETAL: Extremities without clubbing, cyanosis, or edema. No obvious deformities. NEUROLOGICAL: Awake, alert and oriented x4. No focal neurologic deficits. Moving both upper and lower extremities spontaneously. Laboratory Laboratory Tests Test 07/09/17 07/09/17 21:05 23:25 White Blood Count 7.3 Red Blood Count 3.07 Hemoglobin 9.0 Hematocrit 27.6 Mean Corpuscular Volume 89.9 Mean Corpuscular Hemoglobin 29.5 Mean Corpuscular Hemoglobin 32.8 Concent Red Cell Distribution Width 16.2 Platelet Count 103 Mean Platelet Volume 8.8 Neutrophils (%) (Auto) 75.4 Lymphocytes (%) (Auto) 12.6 Monocytes (%) (Auto) 11.0 Eosinophils (%) (Auto) 0.7 Basophils (%) (Auto) 0.3 Neutrophils # (Auto) 5.5 Lymphocytes # (Auto) 0.9 Monocytes # (Auto) 0.8 Eosinophils # (Auto) 0.1 Basophils # (Auto) 0.0 CBC Comment DIFF FINAL Differential Comment Prothrombin Time 12.7 Prothromb Time International 1.1 Ratio Activated Partial 25.2 Thromboplast Time Sodium Level 136 Potassium Level 4.0 Chloride Level 103 Carbon Dioxide Level 25.7 Anion Gap 7 Blood Urea Nitrogen 22 Creatinine 1.56 Estimat Glomerular Filtration 32 Rate Random Glucose 174 Calcium Level 8.4 Total Bilirubin 0.6 Aspartate Amino Transf 42 (AST/SGOT) Alanine Aminotransferase 34 (ALT/SGPT) Alkaline Phosphatase 72 Total Creatine Kinase 37 Troponin I LESS THAN 0.02 B-Type Natriuretic Peptide 1073 Total Protein 8.5 Albumin 3.2 Urine Color YELLOW Urine Turbidity CLEAR Urine pH 5.5 Urine Specific [place] 1.010 Urine Protein TRACE Urine Glucose (UA) NEG Urine Ketones NEG Urine Occult Blood NEG Urine Nitrite NEG Urine Bilirubin NEG Urine Urobilinogen LESS THAN 2.0 Urine Leukocyte Esterase SMALL Urine RBC 2 Urine WBC 1 Urine Squamous Epithelial 1 Cells Urine Hyaline Casts 10 Urine Mucus FEW Microscopic Urinalysis Comment CULT NOT INDICATED Result Diagram: 07/09/17210407/09/172104 Assessment and Plan Problem List: (1) CHF (congestive heart failure) ICD Code: I50.9 Status: Acute (2) COPD (chronic obstructive pulmonary disease) ICD Code: J44.9 Status: Chronic (3) Hypoxia ICD Code: R09.02 Status: Resolved (4) Renal insufficiency ICD Code: N28.9 Status: Acute (5) A-fib ICD Code: I48.91 Status: Chronic (6) DM (diabetes mellitus) ICD Code: E11.9 Status: Acute Assessment and Plan A/P: 1. CHF: Acute on Chronic. Diastolic. Echo 05/11/17 w/ EF 60-65%, Severe Pulm HTN >70mmHg. BNP 1073, CXR w/ increased bilateral pleural effusions, images reviewed by me. S/p Lasix 20mg IV x1 in ER w/ good diuresis. Monitor I/O, continue w/ Lasix IV-caution w/ renal function. 2. COPD: Chronic Respiratory Failure w/ Acute Exacerbation, +wheezing on exam , s/p Solu-Medrol and DuoNeb, will continue w/ Solu-Medrol, DuoNeb, Symbicort. 3. Hypoxia: Multifactorial-secondary to CHF/COPD. O2 sat 84% on RA upon arrival, currently O2 sat 96% on 2L NC, will monitor. 4. A-fib: Chronic. Controlled. Resume home Metoprolol, Diltiazem, Digoxin and Eliquis 5. DM: Sliding scale w/ Accu-Cheks. Resume home medications. 6. DVT Prophylaxis: On Eliquis 7. Social work for d/c planning as needed. 8. Case discussed w/ ER physician at length. Physician Certification 2 Midnight Certification Type: Admission for Inpatient Services Order for Inpatient Services The services are ordered in accordance with Medicare regulations or non- Medicare payer requirements, as applicable. In the case of services not specified as inpatient-only, they are appropriately provided as inpatient services in accordance with the 2-midnight benchmark. Estimated LOS (days): 2 days is the estimated time the patient will need to remain in the hospital, assuming treatment plan goals are met and no additional complications. Post-Hospital Plan: Not yet determined Aranza Gomez MD Jul 10, 2017 01:17
[2017-07-10] MEDS: METOPROLOL TARTRATE 50 MG TAB PO SCH ×3 (05:42→21:04)
[2017-07-10] MEDS: GLIMEPIRIDE 1 MG TAB PO SCH ×2 (05:42→17:59)
[2017-07-10] MEDS: LEVOTHYROXINE SODIUM 125 MCG TAB PO SCH (05:42)
[2017-07-10] MEDS: methylPREDNISolone SOD SUCC 40 MG/1 ML VIAL IV PUSH SCH ×4 (05:42→23:33)
[2017-07-10] MEDS: INSULIN ASPART SUPPLEMENTAL SCALE SQ SCH ×4 (05:50→21:07)
[2017-07-10] MEDS: SODIUM CHLORIDE 0.9% FLUSH 10 ML FLUSH IV FLUSH SCH ×2 (09:00→21:05)
[2017-07-10] MEDS ORDERED: metFORMIN HCL 500 MG TAB PO SCH (09:00)
[2017-07-10] MEDS ORDERED: BUDESONIDE-FORMOTEROL 160/4.5 MCG INHALER INH SCH (09:00)
[2017-07-10] MEDS: BUDESONIDE-FORMOTEROL 160/4.5 MCG INHALER INH SCH ×2 (09:00→21:05)
--- NOTE | 2017-07-10 09:38 | HHI.PR ---
Subjective Remarks Patient's heart rate early this morning [id number]. Denies chest pain. Endorses mild shortness of breath, improved from yesterday evening when the patient came in. Stat EKG showing A. fib with RVR, heart rate 140s. Objective Vitals Vital Signs Date Time Temp Pulse Resp B/P Pulse Ox O2 Delivery O2 Flow Rate FiO2 07/10/17 04:00 97.1 120 20 130/85 91 07/10/17 02:00 98.1 129 20 160/89 90 07/09/17 22:30 97 16 164/80 96 Nasal Cannula 2 07/09/17 21:07 98 Nasal Cannula 2.00 07/09/17 20:40 95 Nasal Cannula 3 07/09/17 20:37 94 30 142/86 84 I/O 07/09/17 07/09/17 07/09/17 07/10/17 07/10/17 07/10/17 07:00 15:00 23:00 07:00 15:00 23:00 Intake Total 240 ml Balance 240 ml Intake Oral 240 ml # Voids 1 Result Diagram: 07/09/17210407/09/172104 Objective Remarks GENERAL: Elderly female in no acute distress. HEENT: PERRLA, EOMI. No scleral icterus or conjunctival pallor. No lid lag or facial droop. CARDIOVASCULAR: Tachycardic. Irregular rate. No obvious murmurs to auscultation. No chest tenderness to palpation. RESPIRATORY: No obvious rhonchi. Occasional wheezing. Clear to auscultation. Decreased breath sounds equal bilaterally. GASTROINTESTINAL: Abdomen soft, non-tender, nondistended. BS normal. MUSCULOSKELETAL: Extremities without clubbing, cyanosis, or edema. No obvious deformities. NEUROLOGICAL: Awake, alert and oriented x4. No focal neurologic deficits. Moving both upper and lower extremities spontaneously. A/P Problem List: (1) CHF (congestive heart failure) ICD Code: I50.9 Status: Acute (2) COPD (chronic obstructive pulmonary disease) ICD Code: J44.9 Status: Chronic (3) Hypoxia ICD Code: R09.02 Status: Resolved (4) Renal insufficiency ICD Code: N28.9 Status: Acute (5) A-fib ICD Code: I48.91 Status: Chronic (6) DM (diabetes mellitus) ICD Code: E11.9 Status: Acute Assessment and Plan 1. A. fib with RVR. Patient with sustained elevated heart rate, currently 140s. Stat EKG showed A. fib with RVR. Patient with known A. fib on diltiazem and metoprolol at home. Transferred to CICU. Continue metoprolol at home dosing. Started on diltiazem bolus and drip. Wean off diltiazem drip as appropriate. Continue home digoxin and Eliquis. 2. CHF: Acute on Chronic. Diastolic. Echo 05/11/17 w/ EF 60-65%, Severe Pulm HTN >70mmHg. BNP 1073, CXR w/ increased bilateral pleural effusions. S/p Lasix 20mg IV x1 in ER w/ good diuresis. Monitor I/O, continue w/ Lasix IV- caution w/ renal function. 3. COPD: Chronic Respiratory Failure w/ Acute Exacerbation, +wheezing on exam , s/p Solu-Medrol and DuoNeb, will continue w/ Solu-Medrol, DuoNeb, Symbicort. 4. Hypoxia: Multifactorial-secondary to CHF/COPD. O2 sat 84% on RA upon arrival, currently O2 sat 96% on 2L NC, will monitor. 5. DM: Sliding scale w/ Accu-Cheks. Resume home medications. 6. DVT Prophylaxis: On Eliquis 7. Social work for d/c planning as needed. Problem Qualifiers (1) COPD (chronic obstructive pulmonary disease): Qualified Code: J44.1 - Chronic obstructive pulmonary disease with acute exacerbation Annika Hernández MD R3 Jul 10, 2017 09:38
[2017-07-10] MEDS: FUROSEMIDE 40 MG/4 ML VIAL IV PUSH SCH ×2 (10:07→18:00)
[2017-07-10] MEDS: DOCUSATE SODIUM 50 MG/SENNA 8.6 MG TAB PO SCH ×2 (10:08→20:46)
[2017-07-10] MEDS: DILTIAZEM HCL 90 MG TAB PO SCH (10:09)
[2017-07-10] MEDS: APIXABAN 2.5 MG TABLET PO SCH ×2 (10:10→21:05)
[2017-07-10] MEDS ORDERED: DILTIAZEM HCL 25 MG/5 ML VIAL IV PUSH ONE (10:30)
--- NOTE | 2017-07-10 12:21 | EKG ---
Date Performed: 07/10/2017 Time Performed: 09:50:12 PTAGE: 82 years EKG: ATRIAL FIBRILLATION WITH RAPID VENTRICULAR RESPONSE ST DEVIATION AND MODERATE T-WAVE ABNORM ALITY, CONSIDER LATERAL ISCHEMIA ST DEVIATION AND MODERATE T-WAVE ABNORMALITY, CONSIDER INFERIOR ISCH EMIA ABNORMAL ECG PREVIOUS TRACING : 07/09/2017 20.47 DOCTOR: Jimmy Rene Interpretating Date/Time 07/10/2017 12:18:20
[2017-07-10] MEDS: DILTIAZEM INJ 125 MG in SODIUM CHLORIDE 0.9% INJ 100 ML IV SCH (12:28)
--- NOTE | 2017-07-10 12:29 | EKG ---
Date Performed: 07/09/2017 Time Performed: 20:47:01 PTAGE: 82 years EKG: ATRIAL FIBRILLATION LOW QRS VOLTAGE IN EXTREMITY LEADS MODERATE ST DEPRESSION ABNORMAL QRS- T ANGLE ABNORMAL ECG PREVIOUS TRACING : 06/27/2017 23.16 Compared to prior tracing no significant change DOCTOR: Jimmy Rene Interpretating Date/Time 07/10/2017 12:25:29
[2017-07-11] VITALS (30 sets, daily range): BP systolic 121–153; BP diastolic 74–95; PULSE 60–100; RESP 14–19; TEMP 97.5–98.5; O2SAT 94–97
[2017-07-11] MEDS: LEVOTHYROXINE SODIUM 125 MCG TAB PO SCH (06:11)
[2017-07-11] MEDS: METOPROLOL TARTRATE 50 MG TAB PO SCH ×3 (06:11→22:40)
[2017-07-11] MEDS: methylPREDNISolone SOD SUCC 40 MG/1 ML VIAL IV PUSH SCH (06:11)
[2017-07-11] MEDS: DILTIAZEM INJ 125 MG in SODIUM CHLORIDE 0.9% INJ 100 ML IV SCH (06:15)
[2017-07-11] MEDS: INSULIN ASPART SUPPLEMENTAL SCALE SQ SCH ×4 (06:16→22:38)
[2017-07-11 07:02] LABS: AUTOMATED NEUTROPHIL # 9.5 TH/MM3 (1.8-7.7); BASOPHIL % 0.1 % (0.0-2.0); HEMATOCRIT 27.7 % (35.0-46.0); HEMO FLAGS DIFF FINAL; LYMPH % 4.2 % (9.0-44.0); LYMPHOCYTE # 0.4 TH/MM3 (1.0-4.8); MEAN CELL VOLUME 89.2 FL (80.0-100.0); MEAN CORPUSCULAR HGB CONC 33.6 % (32.0-36.0); MONO % 3.3 % (0.0-8.0); NEUT % 92.4 % (16.0-70.0); PLATELET COUNT 102 TH/MM3 (150-450); RED CELL DISTRIBUTION WIDTH 15.9 % (11.6-17.2); WHITE BLOOD COUNT 10.3 TH/MM3 (4.0-11.0)
[2017-07-11 07:14] LABS: ANION GAP 9 MEQ/L (5-15); AST (GOT) 24 U/L (15-37); BLOOD UREA NITROGEN 34 MG/DL (7-18); CHLORIDE 100 MEQ/L (98-107); GLOMERULAR FILTRATION RATE 31 ML/MIN (>89); POTASSIUM 4.7 MEQ/L (3.5-5.1); SODIUM (NA) 134 MEQ/L (136-145)
[2017-07-11 07:20] LABS: ALKALINE PHOSPHATASE 62 U/L (45-117); ALT (GPT) 30 U/L (10-53); TOTAL BILIRUBIN ADULT 0.6 MG/DL (0.2-1.0)
[2017-07-11] MEDS: SODIUM CHLORIDE 0.9% FLUSH 10 ML FLUSH IV FLUSH SCH ×2 (08:34→22:39)
[2017-07-11] MEDS: GLIMEPIRIDE 1 MG TAB PO SCH ×2 (08:34→17:11)
[2017-07-11] MEDS: FUROSEMIDE 40 MG/4 ML VIAL IV PUSH SCH ×2 (08:34→17:12)
[2017-07-11] MEDS: APIXABAN 2.5 MG TABLET PO SCH ×2 (08:34→22:38)
[2017-07-11] MEDS: DOCUSATE SODIUM 50 MG/SENNA 8.6 MG TAB PO SCH ×2 (08:38→22:39)
[2017-07-11] MEDS: BUDESONIDE-FORMOTEROL 160/4.5 MCG INHALER INH SCH ×2 (09:26→21:00)
--- NOTE | 2017-07-11 10:09 | HHI.PR ---
Subjective Remarks Follow-up first heart failure Patient denies any shortness of breathing. She complains of lower extremity edema. She denies any pain. She has no other complaints. Heart rate in the 80s on Cardizem drip at 5. Objective Vitals Vital Signs Date Time Temp Pulse Resp B/P Pulse Ox O2 Delivery O2 Flow Rate FiO2 07/11/17 06:00 88 07/11/17 05:00 97 07/11/17 04:00 95 07/11/17 03:45 97.5 85 18 150/89 96 07/11/17 03:45 96 Nasal Cannula 2.00 07/11/17 03:00 82 07/11/17 02:00 87 07/11/17 01:00 75 07/11/17 00:00 82 07/10/17 23:30 98.2 75 18 132/77 99 07/10/17 23:30 99 Nasal Cannula 3.00 07/10/17 23:00 70 07/10/17 22:00 72 07/10/17 21:00 66 07/10/17 20:00 70 07/10/17 19:45 97 Nasal Cannula 3.00 07/10/17 19:45 98.5 72 18 119/62 97 07/10/17 19:00 75 07/10/17 17:30 98.3 71 17 138/77 96 07/10/17 15:18 86 07/10/17 13:24 101.2 136 18 170/110 98 I/O 07/10/17 07/10/17 07/10/17 07/11/17 07/11/17 07/11/17 07:00 15:00 23:00 07:00 15:00 23:00 Intake Total 240 ml 720 ml 535 ml Output Total 200 ml Balance 240 ml 720 ml 335 ml Intake Oral 240 ml 720 ml 480 ml IV Total 55 ml Output Urine Total 200 ml # Voids 1 3 1 # Bowel Movements 1 1 Result Diagram: 07/11/1762407/11/17624 Objective Remarks GENERAL: In no acute distress sitting in the chair comfortably NECK: Supple, trachea midline. No JVD or lymphadenopathy. CARDIOVASCULAR: Regular rate and rhythm without murmurs, gallops, or rubs. RESPIRATORY: Breath sounds equal bilaterally. No accessory muscle use. GASTROINTESTINAL: Abdomen soft, non-tender, nondistended. MUSCULOSKELETAL: No cyanosis, +1 lower extremity edema bilaterally. Medications and IVs Current Medications Sodium Chloride (NS Flush) 2 ml UNSCH PRN IVF FLUSH AFTER USING IV ACCESS; Start 07/09/17 at 20:45; Stop 07/10/17 at 00:50; Status DC Albuterol/ Ipratropium (Duoneb Neb) 1 ampule Q15M INH Last administered on 07/09 21:06; Start 07/09/17 at 20:45; Stop 07/09/17 at 21:16; Status DC Furosemide (Lasix Inj) 20 mg ONCE ONCE IV PUSH Last administered on 07/09/17 21:36; Start 07/09/17 at 20:45; Stop 07/09/17 at 20:46; Status DC Methylprednisolone Sodium Succinate (SoluMEDROL INJ) 125 mg ONCE ONCE IV PUSH Last administered on 07/09/17 21:36; Start 07/09/17 at 20:45; Stop 07/09/17 at 20:46; Status DC Furosemide (Lasix Inj) 40 mg BID@09,18 IV PUSH Last administered on 07/11/17 08:34; Start 07/10/17 at 09:00 Dextrose (D50w (Vial) Inj) 50 ml UNSCH PRN IV HYPOGLYCEMIA-SEE COMMENTS; Start 07/10/17 at 00:45 Glucagon (Glucagon Inj) 1 mg UNSCH PRN OTHER HYPOGLYCEMIA-SEE COMMENTS; Start 07/10/17 at 00:45 Insulin Aspart (NovoLOG SUPPLEMENTAL SCALE) 1 ACHS SLIDING SCALE SQ Last administered on 07/11/17 06:16; Start 07/10/17 at 07:00 Methylprednisolone Sodium Succinate (SoluMEDROL INJ) 40 mg Q6HR IV PUSH Last administered on 07/11/17 06:11; Start 07/10/17 at 06:00 Albuterol/ Ipratropium (Duoneb Neb) 1 ampule Q4HR NEB PRN NEB SOB/WHEEZING; Start 07/10/17 at 00:45 Budesonide/ Formoterol Fumarate (Symbicort 160-4.5 Inh) 2 puff Q12HR INH Last administered on 07/11/17 09:26; Start 07/10/17 at 09:00 Sodium Chloride (NS Flush) 2 ml UNSCH PRN IV FLUSH FLUSH AFTER USING IV ACCESS ; Start 07/10/17 at 00:45 Sodium Chloride (NS Flush) 2 ml BID IV FLUSH Last administered on 07/11/17 08: 34; Start 07/10/17 at 09:00 Ondansetron HCl (Zofran Inj) 4 mg Q6H PRN IVP NAUSEA OR VOMITING; Start at 00:45 Acetaminophen (Tylenol) 650 mg Q6H PRN PO FEVER/PAIN SCALE 1 TO 2 Last administered on 07/10/17 12:34; Start 07/10/17 at 00:45 Acetaminophen/ Hydrocodone Bitart ([place] 5-325 Mg) 1 tab Q4H PRN PO PAIN SCALE 3 TO 5; Start 07/10/17 at 00:45 Morphine Sulfate (Morphine Inj) 2 mg Q3H PRN IV Pain 6-10; Start 07/10/17 at 00 :45 Senna/Docusate Sodium (Arianne-Colace) 1 tab BID PO Last administered on 10:08; Start 07/10/17 at 09:00 Magnesium Hydroxide (Milk Of Magnesia Liq) 30 ml Q12H PRN PO MILD - MODERATE CONSTIPATION; Start 07/10/17 at 00:45 Sennosides (Senokot) 17.2 mg Q12H PRN PO MODERATE - SEVERE CONSTIPATION; Start 07/10/17 at 00:45 Bisacodyl (Dulcolax Supp) 10 mg DAILY PRN RECTAL SEVERE CONSITIPATION; Start at 00:45 Lactulose (Lactulose Liq) 30 ml DAILY PRN PO SEVERE CONSITIPATION; Start at 00:45 Apixaban (Eliquis) 2.5 mg BID PO Last administered on 07/11/17 08:34; Start at 09:00 Budesonide/ Formoterol Fumarate (Symbicort 160-4.5 Inh) 2 puff BID INH ; Start 07/10/17 at 09:00; Stop 07/10/17 at 09:00; Status DC Diltiazem HCl (Cardizem) 180 mg TID PO Last administered on 07/10/17 10:09; Start 07/10/17 at 09:00; Status Hold Glimepiride (Amaryl) 1 mg BIDAC PO Last administered on 07/11/17 08:34; Start 07/10/17 at 07:00 Levothyroxine Sodium (Synthroid) 125 mcg DAILY@06 PO Last administered on 06:11; Start 07/10/17 at 06:00 Metoprolol Tartrate (Lopressor) 50 mg Q8HR PO Last administered on 07/11/17 06 :11; Start 07/10/17 at 06:00 Sitagliptin Phosphate (Januvia) 50 mg BIDPC PO Last administered on 07/11/17 08:34; Start 07/10/17 at 09:00 Metformin HCl 1000 mg 1,000 mg BIDPC PO Last administered on 07/10/17 10:09; Start 07/10/17 at 09:00; Status Hold Diltiazem HCl/ Sodium Chloride (Cardizem Inj/NS Inj) 125 ml @ 0 mls/hr TITRATE IV Last administered on 07/11/17 06:15; Start 07/10/17 at 11:00 Diltiazem HCl (Cardizem Inj) 14 mg BOLUS ONCE IV PUSH Last administered on 12:27; Start 07/10/17 at 10:30; Stop 07/10/17 at 10:31; Status DC A/P Problem List: (1) CHF (congestive heart failure) ICD Code: I50.9 Status: Acute (2) COPD (chronic obstructive pulmonary disease) ICD Code: J44.9 Status: Chronic (3) Hypoxia ICD Code: R09.02 Status: Resolved (4) Renal insufficiency ICD Code: N28.9 Status: Acute (5) A-fib ICD Code: I48.91 Status: Chronic (6) DM (diabetes mellitus) ICD Code: E11.9 Status: Acute Assessment and Plan 1. A. fib with RVR. Heart rate better controlled on Cardizem drip. She is at 5. Will restart her home Cardizem and wean off the drip. Continue with metoprolol and home digoxin and Eliquis. 2. CHF: Acute on Chronic. Diastolic. Echo 05/11/17 w/ EF 60-65%, Severe Pulm HTN >70mmHg. BNP 1073, CXR w/ increased bilateral pleural effusions. Breathing has improved drastically will continue her current regimen. Wean oxygen as tolerated. Continue with strict ins and outs. Continue to monitor creatinine. 3. COPD: Chronic Respiratory Failure w/ Acute Exacerbation on w/ Solu-Medrol, DuoNeb, Symbicort. Wheezing has resolved. This may be secondary to CHF exacerbation. Will DC Solu -Medrol and give course of prednisone. 4. Hypoxia: Multifactorial-secondary to CHF/COPD. O2 sat 84% on RA upon arrival, currently O2 sat 96% on 2L NC, will monitor. Wean as tolerated. 5. DM: Sliding scale w/ Accu-Cheks. Continue with home medication. DVT Prophylaxis: On Eliquis Discharge Planning Patient continues to be on the Cardizem drip. Will need to continue to monitor and his CIC and wean patient off the Cardizem drip. Problem Qualifiers (1) COPD (chronic obstructive pulmonary disease): Qualified Code: J44.1 - Chronic obstructive pulmonary disease with acute exacerbation Makayla Okeefe MD Jul 11, 2017 10:09
[2017-07-11] MEDS: DILTIAZEM HCL 90 MG TAB PO SCH ×2 (12:40→17:10)
[2017-07-11] MEDS: INSULIN DETEMIR 100 UNITS/ML VIAL SQ SCH ×2 (14:18→22:37)
[2017-07-12] VITALS (28 sets, daily range): BP systolic 126–162; BP diastolic 64–89; PULSE 58–98; RESP 16–18; TEMP 97.5–98.1; O2SAT 92–95
[2017-07-12] MEDS: GLIMEPIRIDE 1 MG TAB PO SCH ×2 (06:24→17:18)
[2017-07-12] MEDS: METOPROLOL TARTRATE 50 MG TAB PO SCH ×3 (06:24→21:36)
[2017-07-12] MEDS: LEVOTHYROXINE SODIUM 125 MCG TAB PO SCH (06:24)
[2017-07-12] MEDS: INSULIN ASPART SUPPLEMENTAL SCALE SQ SCH ×4 (06:26→21:43)
[2017-07-12 06:56] LABS: MEAN CELL VOLUME 88.2 FL (80.0-100.0); MEAN CORPUSCULAR HEMOGLOBIN 30.1 PG (27.0-34.0); MEAN CORPUSCULAR HGB CONC 34.1 % (32.0-36.0); PLATELET COUNT 121 TH/MM3 (150-450); RED BLOOD COUNT 3.18 MIL/MM3 (4.00-5.30); REVIEW FLAG FINAL; WHITE BLOOD COUNT 13.3 TH/MM3 (4.0-11.0)
[2017-07-12 07:32] LABS: BICARBONATE 25.6 MEQ/L (21.0-32.0); POTASSIUM 4.2 MEQ/L (3.5-5.1)
[2017-07-12] MEDS: DOCUSATE SODIUM 50 MG/SENNA 8.6 MG TAB PO SCH ×2 (08:04→21:36)
[2017-07-12] MEDS: predniSONE 50 MG TAB PO SCH (08:05)
[2017-07-12] MEDS: APIXABAN 2.5 MG TABLET PO SCH ×2 (08:06→21:36)
[2017-07-12] MEDS: SODIUM CHLORIDE 0.9% FLUSH 10 ML FLUSH IV FLUSH SCH ×2 (08:06→21:00)
[2017-07-12] MEDS: DILTIAZEM HCL 90 MG TAB PO SCH ×3 (08:06→18:13)
[2017-07-12] MEDS: FUROSEMIDE 40 MG/4 ML VIAL IV PUSH SCH (08:07)
[2017-07-12] MEDS: BUDESONIDE-FORMOTEROL 160/4.5 MCG INHALER INH SCH ×2 (08:08→21:00)
[2017-07-12] MEDS: INSULIN DETEMIR 100 UNITS/ML VIAL SQ SCH ×2 (08:12→21:42)
--- NOTE | 2017-07-12 10:39 | HHI.PR ---
Subjective Remarks Follow-up for age of fibrillation with RVR and acute respiratory failure Patient stated breathing has improved. She complained of a cough with phlegm. She said phlegm is yellow. She remains afebrile. Spoke to patient's daughter over the phone on patient's cell phone while the patient was present. Patient requiring 2 L of oxygen. When she was put on 1 L she desat to 84. Objective Vitals Vital Signs Date Time Temp Pulse Resp B/P Pulse Ox O2 Delivery O2 Flow Rate FiO2 07/12/17 06:00 86 07/12/17 05:00 73 07/12/17 04:00 92 Nasal Cannula 2.00 07/12/17 04:00 78 07/12/17 04:00 98.0 78 18 155/89 92 07/12/17 03:00 65 07/12/17 02:00 72 07/12/17 01:00 68 07/12/17 00:00 62 07/11/17 23:30 94 Nasal Cannula 2.00 07/11/17 23:30 98.5 76 16 131/83 94 07/11/17 23:00 66 07/11/17 22:00 62 07/11/17 21:00 64 07/11/17 20:00 98.5 70 16 133/76 95 07/11/17 20:00 95 Nasal Cannula 2.00 07/11/17 20:00 62 07/11/17 19:00 64 07/11/17 18:16 60 07/11/17 17:16 131/76 07/11/17 17:00 72 07/11/17 16:00 70 07/11/17 15:50 95 Nasal Cannula 2.00 07/11/17 15:30 98.1 70 16 121/74 95 07/11/17 15:00 95 07/11/17 14:00 74 07/11/17 13:00 100 07/11/17 12:40 147/95 07/11/17 12:00 100 07/11/17 11:00 96 Nasal Cannula 2.00 07/11/17 11:00 98.4 92 19 153/91 96 07/11/17 11:00 95 I/O 07/11/17 07/11/17 07/11/17 07/12/17 07/12/17 07/12/17 07:00 15:00 23:00 07:00 15:00 23:00 Intake Total 535 ml 1020 ml 252 ml Output Total 200 ml 350 ml 600 ml Balance 335 ml 670 ml -348 ml Intake Oral 480 ml 960 ml 240 ml IV Total 55 ml 60 ml 12 ml Output Urine Total 200 ml 350 ml 600 ml # Voids 1 2 # Bowel Movements 1 1 0 Result Diagram: 07/12/17 0555 07/12/17 0555 Objective Remarks GENERAL: In no acute distress sitting in the chair comfortably NECK: Supple, trachea midline. No JVD or lymphadenopathy. CARDIOVASCULAR: Regular rate and rhythm without murmurs, gallops, or rubs. RESPIRATORY: Breath sounds equal bilaterally. No accessory muscle use. GASTROINTESTINAL: Abdomen soft, non-tender, nondistended. MUSCULOSKELETAL: No cyanosis, +1 lower extremity edema bilaterally. Medications and IVs Current Medications Sodium Chloride (NS Flush) 2 ml UNSCH PRN IVF FLUSH AFTER USING IV ACCESS; Start 07/09/17 at 20:45; Stop 07/10/17 at 00:50; Status DC Albuterol/ Ipratropium (Duoneb Neb) 1 ampule Q15M INH Last administered on 07/09 21:06; Start 07/09/17 at 20:45; Stop 07/09/17 at 21:16; Status DC Furosemide (Lasix Inj) 20 mg ONCE ONCE IV PUSH Last administered on 07/09/17 21:36; Start 07/09/17 at 20:45; Stop 07/09/17 at 20:46; Status DC Methylprednisolone Sodium Succinate (SoluMEDROL INJ) 125 mg ONCE ONCE IV PUSH Last administered on 07/09/17 21:36; Start 07/09/17 at 20:45; Stop 07/09/17 at 20:46; Status DC Furosemide (Lasix Inj) 40 mg BID@09,18 IV PUSH Last administered on 07/12/17 08:07; Start 07/10/17 at 09:00 Dextrose (D50w (Vial) Inj) 50 ml UNSCH PRN IV HYPOGLYCEMIA-SEE COMMENTS; Start 07/10/17 at 00:45 Glucagon (Glucagon Inj) 1 mg UNSCH PRN OTHER HYPOGLYCEMIA-SEE COMMENTS; Start 07/10/17 at 00:45 Insulin Aspart (NovoLOG SUPPLEMENTAL SCALE) 1 ACHS SLIDING SCALE SQ Last administered on 07/11/17 12:40; Start 07/10/17 at 07:00; Stop 07/11/17 at 12:58 ; Status DC Methylprednisolone Sodium Succinate (SoluMEDROL INJ) 40 mg Q6HR IV PUSH Last administered on 07/11/17 06:11; Start 07/10/17 at 06:00; Stop 07/11/17 at 10:10 ; Status DC Albuterol/ Ipratropium (Duoneb Neb) 1 ampule Q4HR NEB PRN NEB SOB/WHEEZING; Start 07/10/17 at 00:45 Budesonide/ Formoterol Fumarate (Symbicort 160-4.5 Inh) 2 puff Q12HR INH Last administered on 07/12/17 08:08; Start 07/10/17 at 09:00 Sodium Chloride (NS Flush) 2 ml UNSCH PRN IV FLUSH FLUSH AFTER USING IV ACCESS ; Start 07/10/17 at 00:45 Sodium Chloride (NS Flush) 2 ml BID IV FLUSH Last administered on 07/12/17 08: 06; Start 07/10/17 at 09:00 Ondansetron HCl (Zofran Inj) 4 mg Q6H PRN IVP NAUSEA OR VOMITING; Start at 00:45 Acetaminophen (Tylenol) 650 mg Q6H PRN PO FEVER/PAIN SCALE 1 TO 2 Last administered on 07/10/17 12:34; Start 07/10/17 at 00:45 Acetaminophen/ Hydrocodone Bitart ([place] 5-325 Mg) 1 tab Q4H PRN PO PAIN SCALE 3 TO 5; Start 07/10/17 at 00:45 Morphine Sulfate (Morphine Inj) 2 mg Q3H PRN IV Pain 6-10; Start 07/10/17 at 00 :45 Senna/Docusate Sodium (Arianne-Colace) 1 tab BID PO Last administered on 08:04; Start 07/10/17 at 09:00 Magnesium Hydroxide (Milk Of Magnesia Liq) 30 ml Q12H PRN PO MILD - MODERATE CONSTIPATION; Start 07/10/17 at 00:45 Sennosides (Senokot) 17.2 mg Q12H PRN PO MODERATE - SEVERE CONSTIPATION; Start 07/10/17 at 00:45 Bisacodyl (Dulcolax Supp) 10 mg DAILY PRN RECTAL SEVERE CONSITIPATION; Start at 00:45 Lactulose (Lactulose Liq) 30 ml DAILY PRN PO SEVERE CONSITIPATION; Start at 00:45 Apixaban (Eliquis) 2.5 mg BID PO Last administered on 07/12/17 08:06; Start at 09:00 Budesonide/ Formoterol Fumarate (Symbicort 160-4.5 Inh) 2 puff BID INH ; Start 07/10/17 at 09:00; Stop 07/10/17 at 09:00; Status DC Diltiazem HCl (Cardizem) 180 mg TID PO Last administered on 07/12/17 08:06; Start 07/10/17 at 09:00 Glimepiride (Amaryl) 1 mg BIDAC PO Last administered on 07/12/17 06:24; Start 07/10/17 at 07:00 Levothyroxine Sodium (Synthroid) 125 mcg DAILY@06 PO Last administered on 06:24; Start 07/10/17 at 06:00 Metoprolol Tartrate (Lopressor) 50 mg Q8HR PO Last administered on 07/12/17 06 :24; Start 07/10/17 at 06:00 Sitagliptin Phosphate (Januvia) 50 mg BIDPC PO Last administered on 07/12/17 08:05; Start 07/10/17 at 09:00 Metformin HCl 1000 mg 1,000 mg BIDPC PO Last administered on 07/10/17 10:09; Start 07/10/17 at 09:00; Status Hold Diltiazem HCl/ Sodium Chloride (Cardizem Inj/NS Inj) 125 ml @ 0 mls/hr TITRATE IV Last administered on 07/11/17 06:15; Start 07/10/17 at 11:00; Stop at 21:40; Status DC Diltiazem HCl (Cardizem Inj) 14 mg BOLUS ONCE IV PUSH Last administered on 12:27; Start 07/10/17 at 10:30; Stop 07/10/17 at 10:31; Status DC Prednisone (Deltasone) 50 mg DAILY PO Last administered on 07/12/17 08:05; Start 07/12/17 at 09:00 Insulin Detemir (Levemir Inj) 10 units BID SQ Last administered on 07/12/17 08 :12; Start 07/11/17 at 13:00 Insulin Aspart (NovoLOG SUPPLEMENTAL SCALE) 1 ACHS SLIDING SCALE SQ Last administered on 07/12/17 06:26; Start 07/11/17 at 16:00 A/P Problem List: (1) CHF (congestive heart failure) ICD Code: I50.9 Status: Acute (2) COPD (chronic obstructive pulmonary disease) ICD Code: J44.9 Status: Chronic (3) Hypoxia ICD Code: R09.02 Status: Resolved (4) Renal insufficiency ICD Code: N28.9 Status: Acute (5) A-fib ICD Code: I48.91 Status: Chronic (6) DM (diabetes mellitus) ICD Code: E11.9 Status: Acute Assessment and Plan 1. A. fib with RVR. Heart rate now controlled with by mouth Cardizem, metoprolol and digoxin. on Eliquis. 2. CHF: Acute on Chronic. Diastolic. Echo 05/11/17 w/ EF 60-65%, Severe Pulm HTN >70mmHg. BNP 1073, CXR w/ increased bilateral pleural effusions. Breathing has improved drastically but she remains hypoxic. Urine output has decreased to 950 cc. Only 200 cc recorded yesterday. Dealt with patient's nurse who stated that they are recording all her urine output. We'll try Bumex. Strict ins and outs. Avoid nephrotoxins. 3. COPD: Chronic Respiratory Failure w/ Acute Exacerbation On DuoNeb nebs, prednisone burst, Symbicort. 4. Hypoxia: Multifactorial-secondary to CHF/COPD. O2 sat 84% on RA upon arrival, currently O2 sat 96% on 2L NC, will monitor. Wean as tolerated. 5. DM: Sliding scale w/ Accu-Cheks. Continue with home medication. 6. Cough: Cough most likely secondary to CHF. Phlegm most likely probably vial. WBC is elevated but the same time patient is on steroids which increases WBC. Will treat empirically for pneumonia with doxycycline for her a short course. 7. Leukocytosis most likely secondary to steroid use. DVT Prophylaxis: On Eliquis Problem Qualifiers (1) COPD (chronic obstructive pulmonary disease): Qualified Code: J44.1 - Chronic obstructive pulmonary disease with acute exacerbation Makayla Okeefe MD Jul 12, 2017 10:39
[2017-07-12] MEDS: DOXYCYCLINE HYCLATE 100 MG CAP PO SCH (12:23)
[2017-07-12] MEDS ORDERED: OXYGENDME NAS.CANULA (15:49)
[2017-07-12] MEDS: BUMETANIDE INJ 1 MG/4 ML VIAL IV PUSH SCH (18:12)
[2017-07-13] VITALS (21 sets, daily range): BP systolic 126–157; BP diastolic 74–88; PULSE 61–94; RESP 16–18; TEMP 97.5–98.4; O2SAT 92–96
[2017-07-13] MEDS: DOXYCYCLINE HYCLATE 100 MG CAP PO SCH ×3 (01:03→23:14)
[2017-07-13] MEDS: LEVOTHYROXINE SODIUM 125 MCG TAB PO SCH (05:13)
[2017-07-13] MEDS: METOPROLOL TARTRATE 50 MG TAB PO SCH ×3 (05:13→21:50)
[2017-07-13] MEDS: INSULIN ASPART SUPPLEMENTAL SCALE SQ SCH ×4 (06:13→21:55)
[2017-07-13 07:08] LABS: HEMATOCRIT 27.2 % (35.0-46.0); MEAN CELL VOLUME 87.8 FL (80.0-100.0); MEAN CORPUSCULAR HEMOGLOBIN 30.1 PG (27.0-34.0); MEAN CORPUSCULAR HGB CONC 34.3 % (32.0-36.0); PLATELET COUNT 104 TH/MM3 (150-450); RED CELL DISTRIBUTION WIDTH 15.7 % (11.6-17.2); REVIEW FLAG FINAL; WHITE BLOOD COUNT 9.6 TH/MM3 (4.0-11.0)
[2017-07-13 07:13] LABS: BICARBONATE 27.6 MEQ/L (21.0-32.0); POTASSIUM 3.6 MEQ/L (3.5-5.1)
[2017-07-13] MEDS: BUDESONIDE-FORMOTEROL 160/4.5 MCG INHALER INH SCH ×2 (08:30→21:49)
[2017-07-13] MEDS: DILTIAZEM HCL 90 MG TAB PO SCH ×3 (08:31→17:08)
[2017-07-13] MEDS: DOCUSATE SODIUM 50 MG/SENNA 8.6 MG TAB PO SCH ×2 (08:31→21:49)
[2017-07-13] MEDS: SODIUM CHLORIDE 0.9% FLUSH 10 ML FLUSH IV FLUSH SCH ×2 (08:31→21:56)
[2017-07-13] MEDS: BUMETANIDE INJ 1 MG/4 ML VIAL IV PUSH SCH (08:31)
[2017-07-13] MEDS: APIXABAN 2.5 MG TABLET PO SCH ×2 (08:31→21:49)
[2017-07-13] MEDS: GLIMEPIRIDE 1 MG TAB PO SCH ×2 (08:31→17:08)
[2017-07-13] MEDS: predniSONE 50 MG TAB PO SCH (08:31)
[2017-07-13] MEDS: INSULIN DETEMIR 100 UNITS/ML VIAL SQ SCH ×2 (08:36→21:54)
--- NOTE | 2017-07-13 12:28 | HHI.PR ---
Subjective Remarks Follow for CHF exacerbation, atrial fibrillation and cough Patient states shortness of breathing continues to improve. She denies any cough. She stated that cough is very minimal. Dealt with patient's daughter over the phone. All questions were answered. Objective Vitals Vital Signs Date Time Temp Pulse Resp B/P Pulse Ox O2 Delivery O2 Flow Rate FiO2 07/13/17 12:04 78 07/13/17 11:50 92 Nasal Cannula 2.00 07/13/17 11:26 78 07/13/17 11:26 95 Nasal Cannula 2.00 07/13/17 11:26 97.7 85 18 144/82 95 07/13/17 10:01 87 07/13/17 09:33 86 07/13/17 08:56 87 Room Air 07/13/17 08:30 97.9 89 18 157/88 96 07/13/17 08:30 96 Nasal Cannula 2.00 07/13/17 08:30 94 07/13/17 06:00 82 07/13/17 05:00 83 07/13/17 04:00 98.0 73 18 153/86 96 07/13/17 04:00 73 07/13/17 03:49 96 Nasal Cannula 2.00 07/13/17 03:00 79 07/13/17 02:00 69 07/13/17 01:00 64 07/13/17 00:00 98.4 68 16 143/77 96 07/13/17 00:00 70 07/13/17 00:00 96 Nasal Cannula 2.00 07/12/17 23:00 66 07/12/17 22:00 80 07/12/17 21:00 69 07/12/17 20:00 98.1 58 16 138/83 95 07/12/17 20:00 78 07/12/17 20:00 95 Nasal Cannula 2.00 07/12/17 19:00 72 07/12/17 18:22 73 07/12/17 17:00 68 07/12/17 16:00 64 07/12/17 15:05 95 Nasal Cannula 2.00 07/12/17 15:05 98.0 70 16 126/64 95 07/12/17 15:00 66 07/12/17 14:00 80 07/12/17 13:00 64 I/O 8/15/17 07/12/17 07/12/17 07/13/17 07/13/17 07/13/17 07:00 15:00 23:00 07:00 15:00 23:00 Intake Total 252 ml 960 ml 240 ml Output Total 600 ml 750 ml 650 ml Balance -348 ml 210 ml -410 ml Intake Oral 240 ml 960 ml 240 ml IV Total 12 ml Output Urine Total 600 ml 750 ml 650 ml # Bowel Movements 0 0 0 Result Diagram: 07/13/1760407/13/17604 Objective Remarks GENERAL: In no acute distress sitting in the chair comfortably NECK: Supple, trachea midline. No JVD or lymphadenopathy. CARDIOVASCULAR: Regular rate and rhythm without murmurs, gallops, or rubs. RESPIRATORY: Breath sounds equal bilaterally. No accessory muscle use. GASTROINTESTINAL: Abdomen soft, non-tender, nondistended. MUSCULOSKELETAL: No cyanosis, +1 lower extremity edema bilaterally. Medications and IVs Current Medications Sodium Chloride (NS Flush) 2 ml UNSCH PRN IVF FLUSH AFTER USING IV ACCESS; Start 07/09/17 at 20:45; Stop 07/10/17 at 00:50; Status DC Albuterol/ Ipratropium (Duoneb Neb) 1 ampule Q15M INH Last administered on 07/09 21:06; Start 07/09/17 at 20:45; Stop 07/09/17 at 21:16; Status DC Furosemide (Lasix Inj) 20 mg ONCE ONCE IV PUSH Last administered on 07/09/17 21:36; Start 07/09/17 at 20:45; Stop 07/09/17 at 20:46; Status DC Methylprednisolone Sodium Succinate (SoluMEDROL INJ) 125 mg ONCE ONCE IV PUSH Last administered on 07/09/17 21:36; Start 07/09/17 at 20:45; Stop 07/09/17 at 20:46; Status DC Furosemide (Lasix Inj) 40 mg BID@09,18 IV PUSH Last administered on 07/12/17 08:07; Start 07/10/17 at 09:00; Stop 07/12/17 at 10:34; Status DC Dextrose (D50w (Vial) Inj) 50 ml UNSCH PRN IV HYPOGLYCEMIA-SEE COMMENTS; Start 07/10/17 at 00:45 Glucagon (Glucagon Inj) 1 mg UNSCH PRN OTHER HYPOGLYCEMIA-SEE COMMENTS; Start 07/10/17 at 00:45 Insulin Aspart (NovoLOG SUPPLEMENTAL SCALE) 1 ACHS SLIDING SCALE SQ Last administered on 07/11/17 12:40; Start 07/10/17 at 07:00; Stop 07/11/17 at 12:58 ; Status DC Methylprednisolone Sodium Succinate (SoluMEDROL INJ) 40 mg Q6HR IV PUSH Last administered on 07/11/17 06:11; Start 07/10/17 at 06:00; Stop 07/11/17 at 10:10 ; Status DC Albuterol/ Ipratropium (Duoneb Neb) 1 ampule Q4HR NEB PRN NEB SOB/WHEEZING; Start 07/10/17 at 00:45 Budesonide/ Formoterol Fumarate (Symbicort 160-4.5 Inh) 2 puff Q12HR INH Last administered on 07/13/17 08:30; Start 07/10/17 at 09:00 Sodium Chloride (NS Flush) 2 ml UNSCH PRN IV FLUSH FLUSH AFTER USING IV ACCESS ; Start 07/10/17 at 00:45 Sodium Chloride (NS Flush) 2 ml BID IV FLUSH Last administered on 07/13/17 08: 31; Start 07/10/17 at 09:00 Ondansetron HCl (Zofran Inj) 4 mg Q6H PRN IVP NAUSEA OR VOMITING; Start at 00:45 Acetaminophen (Tylenol) 650 mg Q6H PRN PO FEVER/PAIN SCALE 1 TO 2 Last administered on 07/10/17 12:34; Start 07/10/17 at 00:45 Acetaminophen/ Hydrocodone Bitart ([place] 5-325 Mg) 1 tab Q4H PRN PO PAIN SCALE 3 TO 5; Start 07/10/17 at 00:45 Morphine Sulfate (Morphine Inj) 2 mg Q3H PRN IV Pain 6-10; Start 07/10/17 at 00 :45 Senna/Docusate Sodium (Arianne-Colace) 1 tab BID PO Last administered on 08:31; Start 07/10/17 at 09:00 Magnesium Hydroxide (Milk Of Magnesia Liq) 30 ml Q12H PRN PO MILD - MODERATE CONSTIPATION; Start 07/10/17 at 00:45 Sennosides (Senokot) 17.2 mg Q12H PRN PO MODERATE - SEVERE CONSTIPATION; Start 07/10/17 at 00:45 Bisacodyl (Dulcolax Supp) 10 mg DAILY PRN RECTAL SEVERE CONSITIPATION; Start at 00:45 Lactulose (Lactulose Liq) 30 ml DAILY PRN PO SEVERE CONSITIPATION; Start at 00:45 Apixaban (Eliquis) 2.5 mg BID PO Last administered on 07/13/17 08:31; Start at 09:00 Budesonide/ Formoterol Fumarate (Symbicort 160-4.5 Inh) 2 puff BID INH ; Start 07/10/17 at 09:00; Stop 07/10/17 at 09:00; Status DC Diltiazem HCl (Cardizem) 180 mg TID PO Last administered on 07/13/17 12:01; Start 07/10/17 at 09:00 Glimepiride (Amaryl) 1 mg BIDAC PO Last administered on 07/13/17 08:31; Start 07/10/17 at 07:00 Levothyroxine Sodium (Synthroid) 125 mcg DAILY@06 PO Last administered on 05:13; Start 07/10/17 at 06:00 Metoprolol Tartrate (Lopressor) 50 mg Q8HR PO Last administered on 07/13/17 05 :13; Start 07/10/17 at 06:00 Sitagliptin Phosphate (Januvia) 50 mg BIDPC PO Last administered on 07/13/17 08:31; Start 07/10/17 at 09:00 Metformin HCl 1000 mg 1,000 mg BIDPC PO Last administered on 07/10/17 10:09; Start 07/10/17 at 09:00; Status Hold Diltiazem HCl/ Sodium Chloride (Cardizem Inj/NS Inj) 125 ml @ 0 mls/hr TITRATE IV Last administered on 07/11/17 06:15; Start 07/10/17 at 11:00; Stop at 21:40; Status DC Diltiazem HCl (Cardizem Inj) 14 mg BOLUS ONCE IV PUSH Last administered on 12:27; Start 07/10/17 at 10:30; Stop 07/10/17 at 10:31; Status DC Prednisone (Deltasone) 50 mg DAILY PO Last administered on 07/13/17 08:31; Start 07/12/17 at 09:00 Insulin Detemir (Levemir Inj) 10 units BID SQ Last administered on 07/13/17 08 :36; Start 07/11/17 at 13:00 Insulin Aspart (NovoLOG SUPPLEMENTAL SCALE) 1 ACHS SLIDING SCALE SQ Last administered on 07/13/17 12:02; Start 07/11/17 at 16:00 Doxycycline Hyclate (Vibramycin) 100 mg Q12H PO Last administered on 07/13/17 12:00; Start 07/12/17 at 12:00 Bumetanide (Bumex Inj) 1 mg BID@09,18 IV PUSH Last administered on 07/13/17 08 :31; Start 07/12/17 at 18:00 A/P Problem List: (1) CHF (congestive heart failure) ICD Code: I50.9 Status: Acute (2) COPD (chronic obstructive pulmonary disease) ICD Code: J44.9 Status: Chronic (3) Hypoxia ICD Code: R09.02 Status: Resolved (4) Renal insufficiency ICD Code: N28.9 Status: Acute (5) A-fib ICD Code: I48.91 Status: Chronic (6) DM (diabetes mellitus) ICD Code: E11.9 Status: Acute Assessment and Plan 1. A. fib with RVR. Heart rate controlled with by mouth Cardizem, metoprolol and digoxin. on Eliquis. 2. CHF: Acute on Chronic. Diastolic. Echo 05/11/17 w/ EF 60-65%, Severe Pulm HTN >70mmHg. BNP 1073, CXR w/ increased bilateral pleural effusions. Breathing has improved drastically but she remains hypoxic. Better urine output with Bumex. Will switch to oral Bumex. Oxygenation on room air is 87 which shows improvement. Patient does have a baseline COPD. 3. COPD: Chronic Respiratory Failure w/ Acute Exacerbation Resolved quickly. On DuoNeb nebs, prednisone burst, Symbicort. 4. Hypoxia: Multifactorial-secondary to CHF/COPD. O2 sat 84% on RA upon arrival, currently O2 sat 96% on 2L NC, will monitor. She is now 87% on room air. Wean as tolerated. 5. DM: Sliding scale w/ Accu-Cheks. Continue with home medication. 6. Cough: Resolved. Cough most likely secondary to CHF. Phlegm most likely probably vial. Continue with empiric treatment for pneumonia with doxycycline. 7. Leukocytosis most likely secondary to steroid use. DVT Prophylaxis: On Eliquis Dealt with patient's nurse in regards to management. Discharge Planning mild worsening of kidney function today. Will need to switch patient to oral Bumex and monitor her creatinine. Possible discharge tomorrow if creatinine is stable or improved. Problem Qualifiers (1) COPD (chronic obstructive pulmonary disease): Qualified Code: J44.1 - Chronic obstructive pulmonary disease with acute exacerbation Makayla Okeefe MD Jul 13, 2017 12:28
[2017-07-13] MEDS: BUMETANIDE 1 MG TAB PO SCH (17:08)
[2017-07-14 00:18] VITALS: BP 151/72; PULSE 87; RESP 18; TEMP 98; O2SAT 96
[2017-07-14 03:55] VITALS: BP 157/77; PULSE 81; RESP 18; TEMP 98.1; O2SAT 99
[2017-07-14] MEDS: LEVOTHYROXINE SODIUM 125 MCG TAB PO SCH (06:16)
[2017-07-14] MEDS: METOPROLOL TARTRATE 50 MG TAB PO SCH (06:16)
[2017-07-14] MEDS: GLIMEPIRIDE 1 MG TAB PO SCH (06:16)
[2017-07-14] MEDS: INSULIN ASPART SUPPLEMENTAL SCALE SQ SCH ×2 (06:19→11:00)
[2017-07-14 08:00] VITALS: BP 151/91; PULSE 80; PULSE 88; RESP 20; TEMP 98.5; O2SAT 93
[2017-07-14] MEDS: BUDESONIDE-FORMOTEROL 160/4.5 MCG INHALER INH SCH (08:55)
[2017-07-14] MEDS: SODIUM CHLORIDE 0.9% FLUSH 10 ML FLUSH IV FLUSH SCH (08:55)
[2017-07-14] MEDS: BUMETANIDE 1 MG TAB PO SCH (08:56)
[2017-07-14] MEDS: predniSONE 50 MG TAB PO SCH (08:56)
[2017-07-14] MEDS: APIXABAN 2.5 MG TABLET PO SCH (08:56)
[2017-07-14] MEDS: DOCUSATE SODIUM 50 MG/SENNA 8.6 MG TAB PO SCH (08:57)
[2017-07-14] MEDS: DILTIAZEM HCL 90 MG TAB PO SCH ×2 (08:57→11:49)
[2017-07-14] MEDS: INSULIN DETEMIR 100 UNITS/ML VIAL SQ SCH (09:02)
[2017-07-14 09:29] LABS: MEAN CELL VOLUME 88.2 FL (80.0-100.0); PLATELET COUNT 88 TH/MM3 (150-450); RED BLOOD COUNT 3.17 MIL/MM3 (4.00-5.30); RED CELL DISTRIBUTION WIDTH 15.3 % (11.6-17.2); WHITE BLOOD COUNT 7.2 TH/MM3 (4.0-11.0)
[2017-07-14 10:31] LABS: BICARBONATE 29.4 MEQ/L (21.0-32.0); POTASSIUM 3.2 MEQ/L (3.5-5.1)
[2017-07-14] MEDS: DOXYCYCLINE HYCLATE 100 MG CAP PO SCH (11:48)
[2017-07-14 12:00] VITALS: BP 122/58; PULSE 108; RESP 20; TEMP 98.5; O2SAT 97
[2017-07-14] MEDS ORDERED: POTASSIUM CHLORIDE 10 MEQ CONTROLLED RELEASE TAB PO ONE (12:00)
[2017-07-14] MEDS ORDERED: SITA50 PO (12:23)
[2017-07-14] MEDS ORDERED: BUME1TAB PO (12:23)
[2017-07-14] MEDS ORDERED: DOXY100C PO (12:23)
--- NOTE | 2017-07-14 12:24 | HHI.DCPOC ---
Discharge Care Plan Diagnosis: (1) Chronic respiratory failure (2) Acute on chronic diastolic CHF (congestive heart failure) (3) Acute kidney injury superimposed on chronic kidney disease (4) Atrial fibrillation with rapid ventricular response Goals to Promote Your Health * To prevent worsening of your condition and complications * To maintain your health at the optimal level Directions to Meet Your Goals Take your medications as prescribed Follow your dietary instruction Follow activity as directed Keep your appointments as scheduled Take your immunizations and boosters as scheduled If your symptoms worsen call your PCP, if no PCP go to Urgent Care Center or Emergency Room Smoking is Dangerous to Your Health. Avoid second hand smoke Call the 24-hour hour crisis hotline for domestic abuse at Makayla Okeefe MD Jul 14, 2017 12:24
--- NOTE | 2017-07-14 12:28 | HHI.DS ---
Discharge Summary Admission Date Jul 09, 2017 at 23:31 Discharge Date: Jul 13, 2017 Admitting Diagnosis CHF, COPD (1) CHF exacerbation ICD Code: I50.9 - Heart failure, unspecified Diagnosis: Principal (2) COPD (chronic obstructive pulmonary disease) ICD Code: J44.9 - Chronic obstructive pulmonary disease, unspecified Diagnosis: Secondary (3) Hypoxia ICD Code: R09.02 - Hypoxia Diagnosis: Secondary (4) Renal insufficiency ICD Code: N28.9 - Disorder of kidney and ureter, unspecified Diagnosis: Secondary (5) A-fib ICD Code: I48.91 - Atrial fibrillation Diagnosis: Secondary (6) DM (diabetes mellitus) ICD Code: E11.9 - Type 2 diabetes mellitus without complications Diagnosis: Secondary Procedures See hospital course Brief History - From Admission This is an 82-year-old female with a PMH of HTN, CHF (Echo 05/11/17 w/ EF 60-65% , Severe Pulm HTN >70mmHg), A-fib on Eliquis, Hepatitis C, Hyperlipidemia and DM who was brought to the ER secondary to c/o SOB. On arrival, O2 sat 84% on RA , noted to have wheezing on exam. BP 142/86, HR 94. Recent admit 06/28-07/03/17 for CHF Exacerbation, Afib w/ RVR and CASSIE. States diuretics recently d/c'd because of kidney function. Per review of previous records, Torsemide discontinued at time of d/c, however Lasix continued. CBC at baseline. Platelets 103, previously 102 on 07/03/17. Creatinine 1.56, previously 1.48 on 07/03/17. Troponin negative. BNP 1073. INR 1.1. UA with small LE, minimal bacteriuria. CHF with increased size of bilateral pleural effusions, bilateral lower lung zone atelectasis versus consolidation. S/p Solu-Medrol and Lasix 20mg IV in ER w/ good diuresis. CBC/BMP: 07/14/17 0755 07/14/17 0755 Significant Findings Laboratory Tests Test 07/12/17 07/13/17 07/14/17 05:55 06:05 07:55 White Blood Count 13.3 TH/MM3 (4.0-11.0) Red Blood Count 3.18 MIL/MM3 3.10 MIL/MM3 3.17 MIL/MM3 (4.00-5.30) (4.00-5.30) (4.00-5.30) Hemoglobin 9.5 GM/DL 9.3 GM/DL 9.5 GM/DL (11.6-15.3) (11.6-15.3) (11.6-15.3) Hematocrit 28.0 % 27.2 % 28.0 % (35.0-46.0) (35.0-46.0) (35.0-46.0) Platelet Count 121 TH/MM3 104 TH/MM3 88 TH/MM3 (150-450) (150-450) (150-450) Sodium Level 133 MEQ/L (136-145) Blood Urea Nitrogen 51 MG/DL (7-18) 56 MG/DL (7-18) 48 MG/DL (7-18) Creatinine 1.64 MG/DL 1.73 MG/DL 1.40 MG/DL (0.50-1.00) (0.50-1.00) (0.50-1.00) Estimat Glomerular Filtration 30 ML/MIN (>89) 28 ML/MIN (>89) 36 ML/MIN (>89) Rate Random Glucose 165 MG/DL 157 MG/DL (74-106) (74-106) Potassium Level 3.2 MEQ/L (3.5-5.1) Imaging Last Impressions Chest X-Ray 07/09/172041 Signed Impressions: Service Date/Time: Sunday, July 09, 2017 20:46 - CONCLUSION: Increase in size of bilateral pleural effusions. Bilateral lower lung zone atelectasis versus consolidation are seen. Aram Scott MD PE at Discharge GENERAL: In no acute distress sitting in the chair comfortably NECK: Supple, trachea midline. No JVD or lymphadenopathy. CARDIOVASCULAR: Regular rate and rhythm without murmurs, gallops, or rubs. RESPIRATORY: Breath sounds equal bilaterally. No accessory muscle use. GASTROINTESTINAL: Abdomen soft, non-tender, nondistended. MUSCULOSKELETAL: No cyanosis, +1 lower extremity edema bilaterally. Pt update on day of discharge Follow-up for CHF exacerbation Patient denies any more cough. She stated she feels great. Denies any shortness of breathing. She feels like she is back to her baseline. I spoke to her daughter over the phone at the bedside. She stated that patient is on 2 L of oxygen chronically. Patient remains afebrile. Her nurse wasalso at the bedside during the interview. Hospital Course 1. A. fib with RVR. Heart rate controlled with by mouth Cardizem, metoprolol and digoxin. on Eliquis. 2. CHF: Acute on Chronic. Diastolic. Echo 05/11/17 w/ EF 60-65%, Severe Pulm HTN >70mmHg. BNP 1073, CXR w/ increased bilateral pleural effusions. Patient was treated with IV Lasix initially. Breathing has improved drastically but she remains hypoxic and urine output has decreased. So she was switched to Bumex and did better on Bumex. She was then switched to oral Bumex and did very well with the medication. 3. COPD: Chronic Respiratory Failure w/ Acute Exacerbation Resolved quickly. On DuoNeb nebs, prednisone burst, Symbicort. 4. chronic Hypoxia: Patient baseline is 2 L at home. Multifactorial- secondary to CHF/COPD. O2 sat 84% on RA upon arrival, currently O2 sat 96% on 2L NC, will monitor. She is now 87% on room air. Wean as tolerated. 5. DM: Sliding scale w/ Accu-Cheks. Continue with home medication. 6. Cough: Cough most likely secondary to CHF. During hospitalization patient continued to complain about cough and wanted to be on antibiotics. She was treated empirically for Mucor pneumonia and did well. 7. Leukocytosis most likely secondary to steroid use. Pt Condition on Discharge: Good Discharge Disposition: Discharge Home Discharge Time: > 30 minutes Discharge Instructions DIET: Follow Instructions for: Heart Healthy Diet, Diabetic Diet Activities you can perform: Regular-No Restrictions Follow up Referrals: PCP Follow-up - 1 Week New Medications: Oxygen (O2) (Oxygen (O2)) Device 2 LITER CHRISTIAN.CANULA CONTINUOUS for Prevent Hypoxemia, #2 CYLINDER 0 Refills Oxygen Concentrator Portable Gaseous 2 L/min via Nasal Canula Continuous For 99 months Sitagliptin (Januvia) 50 Mg Tab 50 MG PO BID for Blood Sugar Management, #60 TAB 0 Refills Bumetanide (Bumetanide) 1 Mg Tab 1 MG PO BID@09,18 for CHF and lower extremity edema, #20 TAB 0 Refills Doxycycline Hyclate (Doxycycline Hyclate) 100 Mg Cap 100 MG PO Q12H for pneumonia, #8 CAP 0 Refills Continued Medications: Albuterol 8.5 GM Inh (Proair Hfa 8.5 GM Inh) 90 Mcg/Act Aer 1 PUFF INH BID PRN for SHORTNESS OF BREATH, #1 INHALER 0 Refills 108 mcg/actuation Alendronate (Alendronate) 70 Mg Tab 70 MG PO Q7D for Osteporosis Treatment, #4 TAB 0 Refills Apixaban (Eliquis) 2.5 Mg Tab 2.5 MG PO BID for Blood Clot Prevention, TAB 0 Refills Arformoterol Neb (Brovana Neb) 15 Mcg/2 Ml Vial 1 NEBULE NEB BID for Broncospasm, #60 NEBULE Maintenance treatment of bronchoconstriction in COPD. Betamethasone Dipropionate Aug Topical (Diprolene Topical) 0.05% Oint 1 APPLIC TOPICAL BID for Dermatoses, #15 GM 0 Refills Budesonide-Formoterol Inh (Symbicort Inh) 160-4.5 Mcg/Act Aero 2 PUFF INH BID, #1 INHALER 0 Refills Diltiazem (Diltiazem) 90 Mg Tab 180 MG PO TID for Angina, #120 TAB 0 Refills Ferrous Gluconate (Ferrous Gluconate) 325 Mg Tab 325 MG PO TID for Nutritional Supplement, #30 TAB 0 Refills Glimepiride (Glimepiride) 1 Mg Tab 1 MG PO BID for Blood Sugar Management, #30 TAB 0 Refills Take with breakfast or first main meal Levalbuterol 15 GM Inh (Xopenex Hfa 15 GM Inh) 45 Mcg/Act Aer 45 MCG INH Q6HR, #1 INHALER 0 Refills Shake well before using. (1 puff = 45 mcg) Levothyroxine (Levothyroxine) 125 Mcg Tab 125 MCG PO DAILY for Thyroid, #30 TAB 0 Refills Metoprolol Succinate ER 24 HR (Metoprolol Succinate ER 24 HR) 50 Mg Tab 50 MG PO TID, #30 TAB 0 Refills Potassium Chloride ER (Potassium Chloride ER) 10 Meq Cap 10 MEQ PO DAILY for Electrolyte Replacement, #30 CAP 0 Refills Ranitidine (Zantac) 150 Mg Tab 150 MG PO DAILY for Reduce Stomach Acid, #30 TAB 0 Refills Sennosides (Senna Lax) 8.6 Mg Tab 17.2 MG PO DAILY for Constipation, #30 TAB Discontinued Medications: Furosemide (Furosemide) 20 Mg Tab 20 MG PO BID, #60 TAB 0 Refills Furosemide (Furosemide) 20 Mg Tab 20 MG PO DAILY, #30 TAB 0 Refills Lisinopril (Lisinopril) 5 Mg Tab 5 MG PO DAILY for Blood Pressure Management, #30 TAB 0 Refills Sitagliptin-Metformin (Janumet) 50-1,000 Mg Tab 1 TAB PO BID for Blood Sugar Management, #60 TAB 0 Refills Makayla Okeefe MD Jul 14, 2017 12:28
== END 2017-07-14 14:10 | disposition home or self-care (01) | DRG 291 ==
LOC: NEPE 20:31 → NEDA 23:31 → N06B 07-10 02:00 → HCIN 07-10 12:12 → N04B 07-13 17:59
PROVIDERS: ADMIT Family Medicine; ATTEND Family Medicine
DX: I13.0 Hypertensive heart and chronic kidney disease with heart failure and stage 1 through stage 4 chronic kidney disease, or unspecified chronic kidney disease (principal); I50.33 Acute on chronic diastolic (congestive) heart failure; J96.21 Acute and chronic respiratory failure with hypoxia; J18.9 Pneumonia, unspecified organism; N17.9 Acute kidney failure, unspecified; E11.22 Type 2 diabetes mellitus with diabetic chronic kidney disease; I48.2 Chronic atrial fibrillation; I27.2 Other secondary pulmonary hypertension; J44.0 Chronic obstructive pulmonary disease with (acute) lower respiratory infection; J44.1 Chronic obstructive pulmonary disease with (acute) exacerbation; E78.5 Hyperlipidemia, unspecified; N18.9 Chronic kidney disease, unspecified; I25.2 Old myocardial infarction; K21.9 Gastro-esophageal reflux disease without esophagitis; K74.60 Unspecified cirrhosis of liver; M81.0 Age-related osteoporosis without current pathological fracture; T38.0X5A Adverse effect of glucocorticoids and synthetic analogues, initial encounter; Z95.0 Presence of cardiac pacemaker; B19.20 Unspecified viral hepatitis C without hepatic coma; Z95.5 Presence of coronary angioplasty implant and graft; Z90.710 Acquired absence of both cervix and uterus
CPT/HCPCS: 71010; 80048; 80053; 81001; 82550; 82948; 83880; 84484; 85025; 85027; 85610; 85730; 93005; 94620; 94640; 94664; 96374; 96375; J1815; J1940; J2405; J2920; J2930; J7512

== ENCOUNTER 2017-09-03 20:44 | Inpatient (IN) | payer MEDICARE, MEDICAID ==
[~2017-09-03] VITALS: Ht 149.9 cm; Wt 53.0 kg
[~2017-09-03 20:44] MED LIST changes: +BUME1TAB PO; +DOXY100C PO; -FURO20TA PO; -JANU50TA8 PO; -LISI-519 PO; +OXYGENDME NAS.CANULA; +SITA50 PO
[2017-09-03 20:45] VITALS: BP 168/94; PULSE 113; RESP 18; TEMP 98.9; O2SAT 94
[2017-09-03 21:40] VITALS: BP 200/90; PULSE 118; RESP 20; O2SAT 90
--- NOTE | 2017-09-03 21:59 | PD ---
HPI Chief Complaint: Chest Pain Time Seen by Provider: 21:51 Travel History International Travel<30 days: No Contact w/Intl Traveler<30days: No Traveled to known affect area: No History of Present Illness HPI The patient is a 82-year-old female who presents to the emergency department with her daughter for chest pain or shortness of breath. The patient is mostly Citizen Of [place]-speaking, the daughter translating at bedside per her request. The patient developed chest pain earlier today which is substernal, described as chest tightness, with pressure, and shortness of breath. The patient does have a history of atrial fibrillation, congestive heart failure, COPD, and oxygen dependency. The patient's oxygen level earlier today was 82% on 3 L according to the daughter. The patient is followed by her primary physician, Claudia Richard , truck despatcher, Dr. Day, and her single stayer operator, Dr. Eisenberg. The patient does complain of mild shortness of breath, chest tightness described as pressure , but denies any nausea, vomiting, or abdominal pain. She does note lower extremity edema. Symptoms are moderate, possibly exacerbated by history of atrial fibrillation and congestive heart failure. The patient is anticoagulated with Eliquis. PFSH Past Medical History Hx Anticoagulant Therapy: Yes Arthritis: Yes (osteoporosis) Asthma: Yes Autoimmune Disease: No Blood Disorders: No Anxiety: No Depression: No Heart Rhythm Problems: Yes Cancer: No Cardiac Catheterization: Yes (10-01-09) Cardiovascular Problems: Yes High Cholesterol: No Chemotherapy: No Chest Pain: Yes Congestive Heart Failure: Yes Cirrhosis: Yes COPD: No Diabetes: Yes Diminished Hearing: No Endocrine: Yes Gastrointestinal Disorders: Yes GERD: Yes Genitourinary: No Headaches: No Hepatitis: Yes (hep c) Hiatal Hernia: No Hypertension: Yes Immune Disorder: Yes (hepatitis C) Implanted Vascular Access Dvce: Yes Kidney Stones: No Musculoskeletal: Yes Neurologic: No Psychiatric: No Reproductive: No Respiratory: Yes Migraines: No Myocardial Infarction: Yes Radiation Therapy: No Renal Failure: No Sickle Cell Disease: No Sleep Apnea: No Thyroid Disease: Yes Ulcer: No Menopausal: Yes : 5 Para: 4 Miscarriage: 1 Past Surgical History Abdominal Surgery: No AICD: No Appendectomy: No Arteriovenous Shunt: No Body Medical Devices: PACEMAKER AND STENTS Cardiac Surgery: Yes (stents) Cholecystectomy: Yes Coronary Stent: Yes (x2) Ear Surgery: No Endocrine Surgery: No Eye Surgery: Yes (cataract removal ) Genitourinary Surgery: Yes (gallbladder) Gynecologic Surgery: Yes (hysterectomy) Hysterectomy: Yes Insulin Pump: No Joint Replacement: No Oral Surgery: No Pacemaker: Yes Thoracic Surgery: No Social History Alcohol Use: No Tobacco Use: No Substance Use: No Allergies-Medications (Allergen,Severity, Reaction): Coded Allergies: penicillin G (Verified Allergy, Severe, Anaphylaxis, 09/03/17) Reported Meds & Prescriptions Reported Meds & Active Scripts Active Januvia (Sitagliptin Phosphate) 50 Mg Tab 50 Mg PO BID Doxycycline Hyclate 100 Mg Cap 100 Mg PO Q12H Bumetanide 1 Mg Tab 1 Mg PO BID@,18 Oxygen (O2) Device 2 Liter CHRISTIAN.CANULA CONTINUOUS Oxygen Concentrator Portable Gaseous 2 L/min via Nasal Canula Continuous For 99 months Senna Lax (Sennosides) 8.6 Mg Tab 17.2 Mg PO DAILY Reported Metoprolol Succinate ER 24 HR (Metoprolol Succinate) 50 Mg Tab 50 Mg PO TID Diltiazem (Diltiazem HCl) 90 Mg Tab 180 Mg PO TID Glimepiride 1 Mg Tab 1 Mg PO BID Take with breakfast or first main meal Diprolene Topical (Betamethasone Dipropionate Aug Topical) 0.05% Oint 1 Applic TOPICAL BID Ferrous Gluconate 325 Mg Tab 325 Mg PO TID Potassium Chloride ER (Potassium Chloride) 10 Meq Cap 10 Meq PO DAILY Xopenex Hfa 15 GM Inh (Levalbuterol 15 GM Inh) 45 Mcg/Act Aer 45 Mcg INH Q6HR Shake well before using. (1 puff = 45 mcg) Brovana Neb (Arformoterol Neb) 15 Mcg/2 Ml Vial 1 Nebule NEB BID Maintenance treatment of bronchoconstriction in COPD. Alendronate (Alendronate Sodium) 70 Mg Tab 70 Mg PO Q7D Proair Hfa 8.5 GM Inh (Albuterol Sulfate) 90 Mcg/Act Aer 1 Puff INH BID PRN 108 mcg/actuation Eliquis (Apixaban) 2.5 Mg Tab 2.5 Mg PO BID Zantac (Ranitidine HCl) 150 Mg Tab 150 Mg PO DAILY Levothyroxine (Levothyroxine Sodium) 125 Mcg Tab 125 Mcg PO DAILY Symbicort Inh (Budesonide/Formoterol Fumarate) 160-4.5 Mcg/Act Aero 2 Puff INH BID Review of Systems Except as stated in HPI: all other systems reviewed are Neg General / Constitutional: No: Fever HENT: No: Lightheadedness Cardiovascular: Positive: Chest Pain or Discomfort, Irregular Rhythm, Dyspnea on exertion, No: Diaphoresis Respiratory: Positive: Shortness of Breath Gastrointestinal: No: Nausea, Vomiting Musculoskeletal: Positive: Weakness, Edema Neurologic: No: Dizziness Physical Exam Narrative GENERAL: Awake, alert, very pleasant 82-year-old female appears her stated age and is in mild acute respiratory distress. SKIN: Focused skin assessment warm/dry. HEAD: Atraumatic. Normocephalic. EYES: No injection or drainage. ENT: No nasal bleeding or discharge. Mucous membranes pink and moist. NECK: Trachea midline. No JVD. CARDIOVASCULAR: Irregularly irregular, tachycardic with a heart rate of 115. RESPIRATORY: No accessory muscle use. Diminished breath sounds in the bases bilateral with a few scattered rhonchi. GASTROINTESTINAL: Abdomen soft, non-tender, nondistended. No rebound tenderness. MUSCULOSKELETAL: No obvious deformities. No clubbing. No cyanosis. Bilateral lower extremity pitting edema. NEUROLOGICAL: Awake and alert. No obvious cranial nerve deficits. Motor grossly within normal limits. Normal speech. PSYCHIATRIC: Appropriate mood and affect; insight and judgment normal. Data Data Last Documented VS Vital Signs Date Time Temp Pulse Resp B/P (MAP) Pulse Ox O2 Delivery O2 Flow Rate FiO2 09/03/17 22:35 98 Nasal Cannula 2.00 09/03/17 21:53 (126) 09/03/17 21:40 118 20 09/03/17 20:45 98.9 Orders Orders Complete Blood Count With Diff (09/03/17 21:51) Comprehensive Metabolic Panel (09/03/17 21:51) B-Type Natriuretic Peptide (09/03/17 21:51) Act Partial Throm Time (Ptt) (09/03/17 21:51) Prothrombin Time / Inr (Pt) (09/03/17 21:51) Magnesium (Mg) (09/03/17 21:51) Ckmb (Isoenzyme) Profile (09/03/17 21:51) Troponin I (09/03/17 21:51) Iv Access Insert/Monitor (09/03/17 21:51) Ecg Monitoring (09/03/17 21:51) Oximetry (09/03/17 21:51) Oxygen Administration (09/03/17 21:51) Chest, Single Ap (09/03/17 21:51) Sodium Chloride 0.9% Flush (Ns Flush) (09/03/17 22:00) Furosemide Inj (Lasix Inj) (09/03/17 22:00) Albuterol-Ipratropium Neb (Duoneb Neb) (09/03/17 22:00) Diltiazem Inj (Cardizem Inj) (09/03/17 23:15) Admit Order (Ed Use Only) (09/03/17 23:28) Labs Laboratory Tests Test 09/03/17 22:00 White Blood Count 8.6 TH/MM3 Red Blood Count 3.58 MIL/MM3 Hemoglobin 10.3 GM/DL Hematocrit 31.2 % Mean Corpuscular Volume 87.3 FL Mean Corpuscular Hemoglobin 28.8 PG Mean Corpuscular Hemoglobin Concent 33.0 % Red Cell Distribution Width 15.5 % Platelet Count 111 TH/MM3 Mean Platelet Volume 9.3 FL Neutrophils (%) (Auto) 67.8 % Lymphocytes (%) (Auto) 18.8 % Monocytes (%) (Auto) 12.3 % Eosinophils (%) (Auto) 0.8 % Basophils (%) (Auto) 0.3 % Neutrophils # (Auto) 5.8 TH/MM3 Lymphocytes # (Auto) 1.6 TH/MM3 Monocytes # (Auto) 1.1 TH/MM3 Eosinophils # (Auto) 0.1 TH/MM3 Basophils # (Auto) 0.0 TH/MM3 CBC Comment DIFF FINAL Differential Comment Prothrombin Time 12.0 SEC Prothromb Time International Ratio 1.1 RATIO Activated Partial Thromboplast Time 27.6 SEC Blood Urea Nitrogen 20 MG/DL Creatinine 1.15 MG/DL Random Glucose 340 MG/DL Total Protein 9.2 GM/DL Albumin 3.4 GM/DL Calcium Level 8.4 MG/DL Magnesium Level 1.8 MG/DL Alkaline Phosphatase 109 U/L Aspartate Amino Transf (AST/SGOT) 33 U/L Alanine Aminotransferase (ALT/SGPT) 35 U/L Total Bilirubin 0.7 MG/DL Sodium Level 134 MEQ/L Potassium Level 3.7 MEQ/L Chloride Level 99 MEQ/L Carbon Dioxide Level 31.0 MEQ/L Anion Gap 4 MEQ/L Estimat Glomerular Filtration Rate 45 ML/MIN Total Creatine Kinase 51 U/L Troponin I 0.02 NG/ML B-Type Natriuretic Peptide 1248 PG/ML MDM Medical Decision Making Medical Screen Exam Complete: Yes Emergency Medical Condition: Yes Medical Record Reviewed: Yes Interpretation(s) EKG reveals atrial fibrillation with RVR, rate 115. Nonspecific T wave changes. Q wave noted in lead 3. Chest x-ray reveals aortic calcification. Cardiomegaly. Bilateral effusions and basilar airspace disease and atelectasis again seen. Last Impressions Chest X-Ray 09/03/172150 Signed Impressions: Service Date/Time: Tuesday, September 03, 2017 21:53 - CONCLUSION: No significant change has occurred. Fede Goldstein MD Laboratory Tests Test 09/03/17 22:00 White Blood Count 8.6 TH/MM3 Red Blood Count 3.58 MIL/MM3 Hemoglobin 10.3 GM/DL Hematocrit 31.2 % Mean Corpuscular Volume 87.3 FL Mean Corpuscular Hemoglobin 28.8 PG Mean Corpuscular Hemoglobin Concent 33.0 % Red Cell Distribution Width 15.5 % Platelet Count 111 TH/MM3 Mean Platelet Volume 9.3 FL Neutrophils (%) (Auto) 67.8 % Lymphocytes (%) (Auto) 18.8 % Monocytes (%) (Auto) 12.3 % Eosinophils (%) (Auto) 0.8 % Basophils (%) (Auto) 0.3 % Neutrophils # (Auto) 5.8 TH/MM3 Lymphocytes # (Auto) 1.6 TH/MM3 Monocytes # (Auto) 1.1 TH/MM3 Eosinophils # (Auto) 0.1 TH/MM3 Basophils # (Auto) 0.0 TH/MM3 CBC Comment DIFF FINAL Differential Comment Prothrombin Time 12.0 SEC Prothromb Time International Ratio 1.1 RATIO Activated Partial Thromboplast Time 27.6 SEC Blood Urea Nitrogen 20 MG/DL Creatinine 1.15 MG/DL Random Glucose 340 MG/DL Total Protein 9.2 GM/DL Albumin 3.4 GM/DL Calcium Level 8.4 MG/DL Magnesium Level 1.8 MG/DL Alkaline Phosphatase 109 U/L Aspartate Amino Transf (AST/SGOT) 33 U/L Alanine Aminotransferase (ALT/SGPT) 35 U/L Total Bilirubin 0.7 MG/DL Sodium Level 134 MEQ/L Potassium Level 3.7 MEQ/L Chloride Level 99 MEQ/L Carbon Dioxide Level 31.0 MEQ/L Anion Gap 4 MEQ/L Estimat Glomerular Filtration Rate 45 ML/MIN Total Creatine Kinase 51 U/L Troponin I 0.02 NG/ML B-Type Natriuretic Peptide 1248 PG/ML Differential Diagnosis Differential diagnosis includes congestive heart failure, pulmonary edema, COPD exacerbation, acute coronary syndrome, pleural effusion, volume overload, pulmonary embolism. Narrative Course IV was established, labs are drawn and sent, and the patient was placed on cardiac telemetry monitoring and continuous pulse oximetry monitoring. EKG was ordered and interpreted. Chest x-ray was obtained. Patient was administered Lasix 40 mg intravenously and DuoNeb 1. The patient's chest x-ray reveals bilateral effusions and cardiomegaly. BNP is elevated at 1248, troponin is normal at 0.02. The patient did have A. fib with RVR, was administered Cardizem 10 mg intravenously. The patient appears to have atrial fibrillation with RVR and congestive heart failure with mild hypoxia. The patient is on oxygen chronically, was placed on 2 L to bring her oxygen up to 90%. The patient's primary physician is Hailey Richard, therefore, the on-call medical service was paged for admission. Physician Communication Physician Communication The on-call medical service was paged for admission. I discussed the patient with Dr. Gomez who agrees with 23 hour observation. Diagnosis Primary Impression: Acute on chronic diastolic CHF (congestive heart failure) Additional Impression: Atrial fibrillation with rapid ventricular response Admitting Information Admitting Physician Requests: Observation Condition: Stable Charlie Mathias MD Sep 03, 2017 21:59
[2017-09-03] MEDS ORDERED: FUROSEMIDE 40 MG/4 ML VIAL IVP ONE (22:00)
[2017-09-03] MEDS ORDERED: RESP: ALBUTEROL 2.5 MG/IPRATROPIUM 0.5 MG NEB (SCH) INH ONE (22:00)
--- NOTE | 2017-09-03 22:14 | RADRPT ---
EXAM DATE/TIME: 09/03/2017 21:53 [facility] COMPARISON: CHEST SINGLE AP, July 09, 2017, 20:46. INDICATIONS : Shortness of breath for 2 days. MEDICAL HISTORY : Gastroesophageal reflux disease. Congestive heart failure. Myocardial infarction. CVA. Hypertensi on. Hepatitis C. SURGICAL HISTORY : Cholecystectomy. Hysterectomy. Pacemaker. Cardiac stent. ENCOUNTER: Initial ACUITY: 2 days PAIN SCORE: 3/10 LOCATION: Bilateral chest FINDINGS: Aortic calcification. Cardiomegaly. Bilateral effusions and basilar airspace disease and atelectasis again seen. CONCLUSION: No significant change has occurred. Fede Goldstein MD on September 03, 2017 at 22:12 Board Certified Radiologist. This report was verified electronically.
[2017-09-03] MEDS: SODIUM CHLORIDE 0.9% FLUSH 10 ML FLUSH IVF PRN ×2 (22:23→23:49)
[2017-09-03 22:35] VITALS: O2SAT 98
[2017-09-03 22:44] LABS: ALT (GPT) 35 U/L (10-53); ANION GAP 4 MEQ/L (5-15); AST (GOT) 33 U/L (15-37); BLOOD UREA NITROGEN 20 MG/DL (7-18); CHLORIDE 99 MEQ/L (98-107); GLOMERULAR FILTRATION RATE 45 ML/MIN (>89); MAGNESIUM 1.8 MG/DL (1.5-2.5); POTASSIUM 3.7 MEQ/L (3.5-5.1); SODIUM (NA) 134 MEQ/L (136-145)
[2017-09-03 22:48] LABS: ALKALINE PHOSPHATASE 109 U/L (45-117); TOTAL BILIRUBIN ADULT 0.7 MG/DL (0.2-1.0)
[2017-09-03 22:49] LABS: APTT (PATIENT) 27.6 SEC (24.3-30.1); INTERNATIONAL NORMALIZED RATIO 1.1 RATIO
[2017-09-03 22:54] LABS: CREATINE KINASE 51 U/L (26-192)
[2017-09-03 22:59] LABS: AUTOMATED NEUTROPHIL # 5.8 TH/MM3 (1.8-7.7); BASOPHIL % 0.3 % (0.0-2.0); EOSINOPHIL # 0.1 TH/MM3 (0-0.4); EOSINOPHIL % 0.8 % (0.0-4.0); HEMATOCRIT 31.2 % (35.0-46.0); HEMO FLAGS DIFF FINAL; LYMPH % 18.8 % (9.0-44.0); LYMPHOCYTE # 1.6 TH/MM3 (1.0-4.8); MEAN CELL VOLUME 87.3 FL (80.0-100.0); MEAN CORPUSCULAR HEMOGLOBIN 28.8 PG (27.0-34.0); MONO % 12.3 % (0.0-8.0); NEUT % 67.8 % (16.0-70.0); PLATELET COUNT 111 TH/MM3 (150-450); RED BLOOD COUNT 3.58 MIL/MM3 (4.00-5.30); RED CELL DISTRIBUTION WIDTH 15.5 % (11.6-17.2); WHITE BLOOD COUNT 8.6 TH/MM3 (4.0-11.0)
[2017-09-03] MEDS ORDERED: DILTIAZEM HCL 25 MG/5 ML VIAL IV ONE (23:15)
[2017-09-03] MEDS ORDERED: LISI-519 PO (23:36)
[2017-09-03] MEDS ORDERED: INSU1INJ14 SQ (23:36)
[2017-09-03] MEDS ORDERED: DEXTROSE 50% IN WATER 50 ML VIAL(D50) IV PUSH PRN (23:45)
[2017-09-03] MEDS ORDERED: SODIUM CHLORIDE 0.9% FLUSH 10 ML FLUSH IV FLUSH PRN (23:45)
[2017-09-03] MEDS ORDERED: ACETAMINOPHEN/HYDROcodone 325 MG/5 MG TAB PO PRN (23:45)
[2017-09-03] MEDS ORDERED: MAGNESIUM HYDROXIDE SUSP 30 ML CUP PO PRN (23:45)
[2017-09-03] MEDS ORDERED: GLUCAGON 1 MG/ML VIAL OTHER PRN (23:45)
[2017-09-03] MEDS ORDERED: MORPHINE SULFATE 4 MG/ML INJ IV PUSH PRN (23:45)
[2017-09-03] MEDS ORDERED: ACETAMINOPHEN 325 MG TAB PO PRN (23:45)
[2017-09-03] MEDS ORDERED: SENNOSIDES 8.6 MG TAB PO PRN (23:45)
[2017-09-03] MEDS ORDERED: BISACODYL 10 MG SUPP RECTAL PRN (23:45)
[2017-09-03] MEDS ORDERED: RESP: ALBUTEROL 2.5 MG/IPRATROPIUM 0.5 MG NEB (PRN) NEB (23:45)
[2017-09-03] MEDS ORDERED: LACTULOSE SYRUP 20 GM/30 ML CUP PO PRN (23:45)
[2017-09-03] MEDS ORDERED: ONDANSETRON HCL 4 MG/2 ML VIAL IVP PRN (23:45)
--- NOTE | 2017-09-03 23:47 | HHI.HP ---
[facility] BELIN[facility] Admission Diagnosis congestive heart failure, atrial fibrillation with RVR Diagnoses: (1) Chest pain Diagnosis: Principal (2) A-fib Diagnosis: Principal (3) CHF (congestive heart failure) Diagnosis: Principal (4) COPD (chronic obstructive pulmonary disease) Diagnosis: Principal (5) HTN (hypertension) Diagnosis: Principal (6) Renal insufficiency Diagnosis: Principal (7) DM (diabetes mellitus) Diagnosis: Principal (8) Thrombocytopenia Diagnosis: Principal (9) DM (diabetes mellitus) Diagnosis: Principal Travel History International Travel<30 Days: No Contact w/Intl Traveler <30 Da: No Traveled to Known Affected Are: No History of Present Illness This is an 82-year-old female with a PMH of HTN, CHF (Echo 05/11/17 w/ EF 60-65% , Severe Pulm HTN >70mmHg), A-fib on Eliquis, Hepatitis C, Hyperlipidemia, COPD , O2 Dependent and DM who was brought to the ER secondary to c/o chest pain and SOB starting earlier tonight. Previous admit 07/09-07/14/17 for similar complaints, treated for A-fib w/ RVR, CHF and COPD, switched to Bumex PO at time of d/c. Had been doing well per Daughter until today when pt had c/o SOB. Follows w/ Dr. Villagran and Dr. Eisenberg as outpatient, has appt on Tuesday. On arrival, BP 168/94, HR 113, O2 sat 94% on RA, Afebrile. CBC at baseline. Platelets 111, previously 88 on 07/14/17. Creatinine 1.15, previously 1.40 on . Troponin negative. EKG with A. fib, no evidence of ischemia. BNP 1248. CXR w/ bilateral pleural effusions, s/p Lasix 40mg IV in ER w/ good diuresis. Review of Systems Except as stated in HPI: all other systems reviewed are Neg ROS: 14 point review of systems otherwise negative. Past Family Social History Past Medical History PMH: HTN, CHF (Echo 05/11/17 w/ EF 60-65%, Severe Pulm HTN >70mmHg), A-fib on Eliquis, Hepatitis C, Hyperlipidemia, COPD, O2 Dependent and DM Past Surgical History PAST SURGICAL HISTORY: Pacemaker, Cholecystectomy, Cataract Surgery, Hysterectomy Allergies: Coded Allergies: penicillin G (Verified Allergy, Severe, Anaphylaxis, 09/03/17) Family History PAST FAMILY HISTORY: Reviewed, positive for DM and CAD. Social History PAST SOCIAL HISTORY: Negative for alcohol, tobacco or drugs. Physical Exam Vital Signs Vital Signs Date Time Temp Pulse Resp B/P (MAP) Pulse Ox O2 Delivery O2 Flow Rate FiO2 09/03/17 22:35 98 Nasal Cannula 2.00 09/03/17 21:54 97 2.00 09/03/17 21:53 (126) 09/03/17 21:40 118 20 200/90 (126) 90 09/03/17 20:45 98.9 113 18 168/94 (118) 94 Room Air Physical Exam PE: GENERAL: Pleasant elderly female in no acute distress. Daughter at bedside HEENT: PERRLA, EOMI. No scleral icterus or conjunctival pallor. No lid lag or facial droop. CARDIOVASCULAR: Irregularly irregular, in A-fib, HR 90's. No obvious murmurs to auscultation. No chest tenderness to palpation. RESPIRATORY: No obvious rhonchi or wheezing. Clear to auscultation. Breath sounds mildly diminished at bases. GASTROINTESTINAL: Abdomen soft, non-tender, nondistended. BS normal. MUSCULOSKELETAL: Extremities without clubbing, cyanosis. +2 pitting edema bilaterally. No obvious deformities. NEUROLOGICAL: Awake, alert and oriented x4. No focal neurologic deficits. Moving both upper and lower extremities spontaneously. Laboratory Laboratory Tests Test 09/03/17 22:00 White Blood Count 8.6 Red Blood Count 3.58 Hemoglobin 10.3 Hematocrit 31.2 Mean Corpuscular Volume 87.3 Mean Corpuscular Hemoglobin 28.8 Mean Corpuscular Hemoglobin Concent 33.0 Red Cell Distribution Width 15.5 Platelet Count 111 Mean Platelet Volume 9.3 Neutrophils (%) (Auto) 67.8 Lymphocytes (%) (Auto) 18.8 Monocytes (%) (Auto) 12.3 Eosinophils (%) (Auto) 0.8 Basophils (%) (Auto) 0.3 Neutrophils # (Auto) 5.8 Lymphocytes # (Auto) 1.6 Monocytes # (Auto) 1.1 Eosinophils # (Auto) 0.1 Basophils # (Auto) 0.0 CBC Comment DIFF FINAL Differential Comment Prothrombin Time 12.0 Prothromb Time International Ratio 1.1 Activated Partial Thromboplast Time 27.6 Blood Urea Nitrogen 20 Creatinine 1.15 Random Glucose 340 Total Protein 9.2 Albumin 3.4 Calcium Level 8.4 Magnesium Level 1.8 Alkaline Phosphatase 109 Aspartate Amino Transf (AST/SGOT) 33 Alanine Aminotransferase (ALT/SGPT) 35 Total Bilirubin 0.7 Sodium Level 134 Potassium Level 3.7 Chloride Level 99 Carbon Dioxide Level 31.0 Anion Gap 4 Estimat Glomerular Filtration Rate 45 Total Creatine Kinase 51 Troponin I 0.02 B-Type Natriuretic Peptide 1248 Result Diagram: 09/03/17219909/03/172199 Caprini VTE Risk Assessment Caprin VTE Risk Assessment: Mod/High Risk (score >= 2) Caprini Risk Assessment Model Point Value = 1 Point Value = 2 Point Value = 3 Point Value = 5 Age 41-60 Minor surgery BMI > 25 kg/m2 Swollen legs Varicose veins or History of unexplained or recurrent spontaneous Oral contraceptives or hormone replacement Sepsis (< 1 month) Serious lung disease, including pneumonia (< 1 month) Abnormal pulmonary function Acute myocardial infarction Congestive heart failure (< 1 month) History of inflammatory bowel disease Medical patient at bed rest Age 61-74 Arthroscopic surgery Major open surgery (> 45 min) Laparoscopic surgery (> 45 min) Malignancy Confined to bed (> 72 hours) Immobilizing plaster cast Central venous access Age >= 75 History of VTE Family history of VTE Factor V Leiden Prothrombin [id number] Lupus anticoagulant Anticardiolipin antibodies Elevated serum homocysteine Heparin-induced thrombocytopenia Other congenital or acquired thrombophilia Stroke (< 1 month) Elective arthroplasty Hip, pelvis, or leg fracture Acute spinal cord injury (< 1 month) Prophylaxis Regimen Total Risk Factor Score Risk Level Prophylaxis Regimen 0-1 Low Early ambulation 2 Moderate Order ONE of the following: *Sequential Compression Device (SCD) *Heparin 5000 units SQ BID 3-4 Higher Order ONE of the following medications: *Heparin 5000 units SQ TID *Enoxaparin/Lovenox 40 mg SQ daily (WT < 150 kg, CrCl > 30 mL/min) *Enoxaparin/Lovenox 30 mg SQ daily (WT < 150 kg, CrCl > 10-29 mL/min) *Enoxaparin/Lovenox 30 mg SQ BID (WT < 150 kg, CrCl > 30 mL/min) AND/OR *Sequential Compression Device (SCD) 5 or more Highest Order ONE of the following medications: *Heparin 5000 units SQ TID (Preferred with Epidurals) *Enoxaparin/Lovenox 40 mg SQ daily (WT < 150 kg, CrCl > 30 mL/min) *Enoxaparin/Lovenox 30 mg SQ daily (WT < 150 kg, CrCl > 10-29 mL/min) *Enoxaparin/Lovenox 30 mg SQ BID (WT < 150 kg, CrCl > 30 mL/min) AND *Sequential Compression Device (SCD) Assessment and Plan Problem List: (1) Chest pain ICD Code: R07.9 - Chest pain, unspecified Status: Acute (2) CHF (congestive heart failure) ICD Code: I50.9 - Heart failure, unspecified Status: Acute (3) A-fib ICD Code: I48.91 - Atrial fibrillation Status: Chronic (4) COPD (chronic obstructive pulmonary disease) ICD Code: J44.9 - Chronic obstructive pulmonary disease, unspecified Status: Chronic (5) HTN (hypertension) ICD Code: I10 - Essential (primary) hypertension (6) Renal insufficiency ICD Code: N28.9 - Disorder of kidney and ureter, unspecified Status: Acute (7) Thrombocytopenia ICD Code: D69.6 - Thrombocytopenia Status: Chronic (8) DM (diabetes mellitus) ICD Code: E11.9 - Diabetes mellitus Status: Chronic Assessment and Plan A/P: 1. Chest Pain: acute onset of chest pain associated w/ SOB, initial Trop negative, EKG w/ no acute ischemia. Check serial cardiac enzymes for trend. Resume home medications. Follows w/ Dr. Villagran as outpatient, will consult as needed. 2. A-fib: Chronic. Episode of A-fib w/ RVR, HR 120's while in ER, s/p Cardizem x1, HR now 90's. Will monitor. Resume home medications. On Eliquis. 3. CHF: Acute on Chronic. Diastolic. Echo 05/11/17 w/ EF 60-65%, Severe Pulm HTN >70mmgHg, BNP 1248. CXR w/ bilateral pleural effusions, images reviewed by me. S/p Lasix 40mg IV in ER, will continue w/ diuresis, however switch to Bumex IV as pt had good result on previous admission. Monito I/O. 4. COPD: Chronic Respiratory Failure w/ Acute Exacerbation. Moderate. Episode of acute SOB at home w/ transient hypoxia, O2 sat 94% on RA upon arrival. Wheezing on arrival, s/p DuoNeb in ER. Solu-Medrol, Xopenex in light of A-fib, Symbicort, O2 as needed. Follows w/ Dr. Eisenberg as outpatient, consult if needed. 5. HTN: Uncontrolled. BP 200/90, HR 118 while in ER, resume home medications , Lopressor IV x1 now. Monitor BP. 6. Thrombocytopenia: Chronic. Platelets 111, previously 88 on 07/14/17. No signs of bleeding, repeat las as needed. 7. Renal Insufficiency: Chronic. Creatinine 1.15, previously 1.40 on . Caution w/ diuretics, monitor I/O. 8. DM: Sliding scale w/ Accu-Cheks. Resume home medications. 9. DVT Prophylaxis: On Eliquis 10. Social work for d/c planning as needed. 11. Case discussed w/ ER physician at length. Aranza Gomez MD Sep 03, 2017 23:47
[2017-09-04] VITALS (23 sets, daily range): BP systolic 129–156; BP diastolic 70–105; PULSE 83–138; RESP 14–20; TEMP 98.4–99.1; O2SAT 91–99
[2017-09-04] MEDS: methylPREDNISolone SOD SUCC 40 MG/1 ML VIAL IV PUSH SCH ×5 (00:55→20:06)
[2017-09-04] MEDS: FAMOTIDINE 20 MG/2 ML VIAL IV PUSH SCH ×4 (00:55→23:34)
[2017-09-04] MEDS ORDERED: INSULIN ASPART SUPPLEMENTAL SCALE SQ SCH (08:00)
[2017-09-04] MEDS: RESP: ALBUTEROL 2.5 MG/IPRATROPIUM 0.5 MG NEB (SCH) NEB ×2 (08:22→11:09)
[2017-09-04] MEDS ORDERED: FUROSEMIDE 20 MG/2 ML VIAL IV PUSH SCH (09:00)
[2017-09-04] MEDS: DOCUSATE SODIUM 50 MG/SENNA 8.6 MG TAB PO SCH ×2 (09:33→20:10)
[2017-09-04] MEDS: BUMETANIDE INJ 1 MG/4 ML VIAL IV PUSH SCH ×2 (09:33→17:50)
[2017-09-04] MEDS: SODIUM CHLORIDE 0.9% FLUSH 10 ML FLUSH IV FLUSH SCH ×2 (09:34→13:12)
[2017-09-04] MEDS: DILTIAZEM 125 MG/NS 100 ML IV PRN ×4 (09:35→19:30)
--- NOTE | 2017-09-04 10:39 | HHI.PR ---
Subjective Remarks Patient is Welsh language speaker, she is resting comfortably in bed, this morning her heart rate reached 160, she started on Cardizem drip, I discussed with the nurse Patient looks comfortable in bed, with signing language I could understand that she doesn't have chest pain or short of breath or palpitation at this point Objective Vitals Vital Signs Date Time Temp Pulse Resp B/P (MAP) Pulse Ox O2 Delivery O2 Flow Rate FiO2 09/04/17 09:54 146 175/101 09/04/17 09:35 146 138/107 09/04/17 08:22 99 Nasal Cannula 2.00 09/04/17 04:19 105 18 156/95 (115) 99 09/04/17 03:00 111 09/04/17 02:41 108 09/04/17 02:25 98.4 94 20 155/88 (110) 96 09/04/17 02:00 09/04/17 00:12 99 14 150/85 (106) 99 Nasal Cannula 2.00 09/03/17 22:35 98 Nasal Cannula 2.00 09/03/17 21:54 97 2.00 09/03/17 21:53 (126) 09/03/17 21:40 118 20 200/90 (126) 90 09/03/17 20:45 98.9 113 18 168/94 (118) 94 Room Air I/O 09/03/17 09/03/17 09/03/17 09/04/17 09/04/17 09/04/17 07:00 15:00 23:00 07:00 15:00 23:00 Intake Total 250 ml Output Total 900 ml Balance -650 ml Intake Oral 250 ml Output Urine Total 900 ml # Bowel Movements 0 Result Diagram: 09/03/17219909/03/172199 Objective Remarks GENERAL: This is a well-nourished, well-developed patient, in no apparent distress. CARDIOVASCULAR: Regular rate and irregular rhythm without murmurs, gallops, or rubs. RESPIRATORY: Positive bilateral wheezing GASTROINTESTINAL: Abdomen soft, non-tender, nondistended. Normal, active bowel sounds MUSCULOSKELETAL: Extremities without clubbing, cyanosis, or edema. NEURO: Alert & Oriented x4 to person, place, time, situation. Moves all ext x4 A/P Problem List: (1) Chest pain ICD Code: R07.9 - Chest pain, unspecified Status: Acute (2) CHF (congestive heart failure) ICD Code: I50.9 - Heart failure, unspecified Status: Acute (3) A-fib ICD Code: I48.91 - Atrial fibrillation Status: Chronic (4) COPD (chronic obstructive pulmonary disease) ICD Code: J44.9 - Chronic obstructive pulmonary disease, unspecified Status: Chronic (5) HTN (hypertension) ICD Code: I10 - Essential (primary) hypertension (6) Renal insufficiency ICD Code: N28.9 - Disorder of kidney and ureter, unspecified Status: Acute (7) Thrombocytopenia ICD Code: D69.6 - Thrombocytopenia Status: Chronic (8) DM (diabetes mellitus) ICD Code: E11.9 - Diabetes mellitus Status: Chronic Assessment and Plan 82 years old female admitted with -Acute on chronic A. fib with RVR: Reach 160, I placed patient on Cardizem drip , she takes 180 times a day will verify this dose, continue elliquis, will monitor closely, now she is on maximum 15 mg, heart rate still at 1:30 will continue with the drip may need to add another agent like Lopressor if blood pressure allow -Chest pain: Rule out ACS, cardiac enzyme negative, EKG no ischemic changes, reviewed personally by me, possibly due to A. fib with RVR -Chronic respiratory failure, due to COPD: Positive wheezing with short of breath, continue DuoNeb, tapering Solu-Medrol, Symbicort -Hypertension: Uncontrolled, patient on Cardizem drip will continue monitoring -Diabetes mellitus uncontrolled: Add Levemir 10 units twice a day, sliding scale upgrade to medium level, check blood sugar every 4 hours -CHF: Acute on chronic diastolic per echo 05/11/17 EF 60-65% with severe pulmonary hypertension > 70 mmHg H, BNP 1248, chest x-ray with bilateral pleural effusion, continue diuresing with Bumex iv, monitor BMP and BNP, monitor urine output Addendum: Received a call from the nurse blood glucose is 492, patient scheduled to get her basal insulin this evening, I will upgrade ISS to medium level, check Accu-Chek every 4 hours, will give 25 units of NovoLog now, continue monitoring Anika Long MD Sep 04, 2017 10:39
[2017-09-04 11:14] LABS: AUTOMATED NEUTROPHIL # 3.3 TH/MM3 (1.8-7.7); BASOPHIL % 0.2 % (0.0-2.0); HEMATOCRIT 33.8 % (35.0-46.0); LYMPH % 11.1 % (9.0-44.0); LYMPHOCYTE # 0.4 TH/MM3 (1.0-4.8); MEAN CORPUSCULAR HEMOGLOBIN 28.8 PG (27.0-34.0); MEAN CORPUSCULAR HGB CONC 33.1 % (32.0-36.0); MONO % 1.4 % (0.0-8.0); NEUT % 87.3 % (16.0-70.0); PLATELET COUNT 86 TH/MM3 (150-450); RED BLOOD COUNT 3.88 MIL/MM3 (4.00-5.30); RED CELL DISTRIBUTION WIDTH 15.8 % (11.6-17.2); WHITE BLOOD COUNT 3.8 TH/MM3 (4.0-11.0)
[2017-09-04 11:17] LABS: HEMO FLAGS AUTO DIFF
[2017-09-04 11:42] LABS: OVALOCYTES 1+ (NORMAL)
[2017-09-04 11:43] LABS: PLATELET ESTIMATE SMEAR LOW (NORMAL); PLATELET MORPHOLOGY NORMAL (NORMAL); SCAN/DIFF AUTO DIFF CONFIRMED
[2017-09-04 11:49] LABS: ALKALINE PHOSPHATASE 85 U/L (45-117); ALT (GPT) 34 U/L (10-53); ANION GAP 9 MEQ/L (5-15); AST (GOT) 24 U/L (15-37); BICARBONATE 27.6 MEQ/L (21.0-32.0); BLOOD UREA NITROGEN 24 MG/DL (7-18); CHLORIDE 97 MEQ/L (98-107); GLOMERULAR FILTRATION RATE 39 ML/MIN (>89); POTASSIUM 3.8 MEQ/L (3.5-5.1); SODIUM (NA) 134 MEQ/L (136-145)
[2017-09-04] MEDS ORDERED: NON-FORMULARY DRUG (Levalbuterol 15 GM Inh (Xopenex Hfa 15 GM Inh) 45 MCG) INH SCH (12:00)
[2017-09-04] MEDS: APIXABAN 2.5 MG TABLET PO SCH ×2 (12:10→20:10)
[2017-09-04] MEDS ORDERED: RESP: IPRATROPIUM 0.5 MG/2.5 ML NEB NEB PRN (12:45)
[2017-09-04] MEDS ORDERED: INSULIN ASPART 1,000 UNITS/10 ML VIAL SQ ONE ×2 (13:00→17:30)
--- NOTE | 2017-09-04 13:03 | EKG ---
Date Performed: 09/03/2017 Time Performed: 21:50:04 PTAGE: 82 years EKG: ATRIAL FIBRILLATION WITH RAPID VENTRICULAR RESPONSE ST DEVIATION AND MODERATE T-WAVE ABNORM ALITY, CONSIDER INFERIOR ISCHEMIA ABNORMAL ECG NO PREVIOUS TRACING DOCTOR: Brett Monsivais Interpretating Date/Time 09/04/2017 12:59:23
[2017-09-04] MEDS ORDERED: LORazepam 0.5 MG TAB PO PRN (15:45)
[2017-09-04] MEDS: RESP: IPRATROPIUM 0.5 MG/2.5 ML NEB NEB SCH ×2 (16:11→20:29)
[2017-09-04] MEDS: RESP: LEVALBUTEROL HYDROCHLORIDE 0.63 MG/3 ML NEB (SCH) NEB ×2 (16:11→20:29)
[2017-09-04] MEDS ORDERED: INSULIN NovoLIN REGULAR SUPPLEMENTAL SCALE SQ SCH (17:00)
[2017-09-04] MEDS ORDERED: INSULIN DETEMIR 100 UNITS/ML VIAL SQ ONE (18:00)
[2017-09-04] MEDS: INSULIN NovoLIN REGULAR SUPPLEMENTAL SCALE SQ SCH ×2 (20:00→23:00)
[2017-09-04] MEDS: BUDESONIDE-FORMOTEROL 160/4.5 MCG INHALER INH SCH (20:06)
[2017-09-04] MEDS: GLIMEPIRIDE 1 MG TAB PO SCH (20:09)
[2017-09-04] MEDS: METOPROLOL TARTRATE 25 MG TAB PO SCH (20:10)
[2017-09-04] MEDS: INSULIN DETEMIR 100 UNITS/ML VIAL SQ SCH (20:29)
[2017-09-04] MEDS ORDERED: INSULIN DETEMIR 100 UNITS/ML VIAL SQ SCH (21:00)
[2017-09-04] MEDS ORDERED: INSULIN DEGLUDEC 10 UNIT SQ SCH (21:00)
[2017-09-05] VITALS (24 sets, daily range): BP systolic 122–169; BP diastolic 75–97; PULSE 78–116; RESP 18–20; TEMP 97.7–98.6; O2SAT 99–100
[2017-09-05] MEDS: INSULIN NovoLIN REGULAR SUPPLEMENTAL SCALE SQ SCH ×8 (02:00→23:00)
[2017-09-05] MEDS: methylPREDNISolone SOD SUCC 40 MG/1 ML VIAL IV PUSH SCH (05:05)
[2017-09-05] MEDS: LEVOTHYROXINE SODIUM 125 MCG TAB PO SCH (05:05)
[2017-09-05] MEDS: DILTIAZEM 125 MG/NS 100 ML IV PRN ×2 (08:00)
[2017-09-05] MEDS: RESP: IPRATROPIUM 0.5 MG/2.5 ML NEB NEB SCH ×4 (08:11→20:00)
[2017-09-05] MEDS: RESP: LEVALBUTEROL HYDROCHLORIDE 0.63 MG/3 ML NEB (SCH) NEB ×4 (08:11→20:00)
[2017-09-05] MEDS ORDERED: NON-FORMULARY DRUG (Ranitidine (Zantac) 150 MG) PO SCH (09:00)
[2017-09-05] MEDS: POTASSIUM CHLORIDE 10 MEQ CAP PO SCH (09:19)
[2017-09-05] MEDS: BUDESONIDE-FORMOTEROL 160/4.5 MCG INHALER INH SCH ×2 (09:19→20:55)
[2017-09-05] MEDS: METOPROLOL TARTRATE 25 MG TAB PO SCH ×2 (09:19→20:52)
[2017-09-05] MEDS: GLIMEPIRIDE 1 MG TAB PO SCH ×2 (09:19→20:52)
[2017-09-05] MEDS: DOCUSATE SODIUM 50 MG/SENNA 8.6 MG TAB PO SCH ×2 (09:19→20:52)
[2017-09-05] MEDS: LISINOPRIL 5 MG TAB PO SCH (09:20)
[2017-09-05] MEDS: APIXABAN 2.5 MG TABLET PO SCH ×2 (09:21→20:53)
[2017-09-05] MEDS: SODIUM CHLORIDE 0.9% FLUSH 10 ML FLUSH IV FLUSH SCH ×2 (09:22→20:54)
[2017-09-05] MEDS: BUMETANIDE INJ 1 MG/4 ML VIAL IV PUSH SCH ×2 (09:23→17:02)
[2017-09-05] MEDS: INSULIN DETEMIR 100 UNITS/ML VIAL SQ SCH ×2 (09:30→21:16)
[2017-09-05] MEDS: FAMOTIDINE 20 MG/2 ML VIAL IV PUSH SCH (11:09)
--- NOTE | 2017-09-05 12:01 | HHI.PR ---
Subjective Remarks sitting on the chair, family at the bedside, very pleasant lady No chest pain or short of breath, heart rate still fluctuating she is on Cardizem drip will switch to by mouth and taper the drip, she is also on Lopressor since heart rate was in the 140 on a max Cardizem drip yesterday Objective Vitals Vital Signs Date Time Temp Pulse Resp B/P (MAP) Pulse Ox O2 Delivery O2 Flow Rate FiO2 09/05/17 06:09 89 09/05/17 05:22 99 09/05/17 04:22 97 09/05/17 03:35 98.6 81 18 135/76 (95) 99 09/05/17 03:00 96 09/05/17 01:00 80 09/05/17 00:00 82 09/04/17 23:00 98.7 83 18 129/77 (94) 99 09/04/17 23:00 94 09/04/17 20:32 98 Nasal Cannula 2.00 09/04/17 20:00 104 09/04/17 19:30 120 155/85 09/04/17 19:00 109 09/04/17 19:00 99.0 115 18 150/87 (108) 98 09/04/17 18:00 104 09/04/17 17:00 128 09/04/17 16:00 122 09/04/17 15:21 135 177/108 09/04/17 15:00 106 09/04/17 15:00 99.1 107 16 156/105 (122) 94 09/04/17 14:00 124 09/04/17 13:15 110 156/93 09/04/17 13:00 112 09/04/17 12:13 98 141/91 I/O 09/04/17 09/04/17 09/04/17 09/05/17 09/05/17 09/05/17 07:00 15:00 23:00 07:00 15:00 23:00 Intake Total 250 ml 480 ml 450 ml Output Total 900 ml 500 ml 500 ml Balance -650 ml -20 ml -50 ml Intake Oral 250 ml 480 ml 240 ml IV Total 210 ml Output Urine Total 900 ml 500 ml 500 ml # Voids 2 # Bowel Movements 0 Result Diagram: 09/04/17 1044 09/04/17 1044 Objective Remarks GENERAL: This is a well-nourished, well-developed patient, in no apparent distress. CARDIOVASCULAR: Regular rate and irregular rhythm without murmurs, gallops, or rubs. RESPIRATORY: Positive bilateral wheezing GASTROINTESTINAL: Abdomen soft, non-tender, nondistended. Normal, active bowel sounds MUSCULOSKELETAL: Extremities without clubbing, cyanosis, or edema. NEURO: Alert & Oriented x4 to person, place, time, situation. Moves all ext x4 A/P Problem List: (1) Chest pain ICD Code: R07.9 - Chest pain, unspecified Status: Acute (2) CHF (congestive heart failure) ICD Code: I50.9 - Heart failure, unspecified Status: Acute (3) A-fib ICD Code: I48.91 - Atrial fibrillation Status: Chronic (4) COPD (chronic obstructive pulmonary disease) ICD Code: J44.9 - Chronic obstructive pulmonary disease, unspecified Status: Chronic (5) HTN (hypertension) ICD Code: I10 - Essential (primary) hypertension (6) Renal insufficiency ICD Code: N28.9 - Disorder of kidney and ureter, unspecified Status: Acute (7) Thrombocytopenia ICD Code: D69.6 - Thrombocytopenia Status: Chronic (8) DM (diabetes mellitus) ICD Code: E11.9 - Diabetes mellitus Status: Chronic Assessment and Plan 82 years old female admitted with -Acute on chronic A. fib with RVR: Reach 160, I placed patient on Cardizem drip , she takes 180 times a day will verify this dose, continue elliquis, will monitor closely, now she is on maximum 15 mg, heart rate still at 1:30 will continue with the drip may need to add another agent like Lopressor if blood pressure allow -Chest pain: Rule out ACS, cardiac enzyme negative, EKG no ischemic changes, reviewed personally by me, possibly due to A. fib with RVR -Chronic respiratory failure, due to COPD: Positive wheezing with short of breath, continue DuoNeb, tapering Solu-Medrol, Symbicort -Hypertension: Uncontrolled, patient on Cardizem drip will continue monitoring -Diabetes mellitus uncontrolled: Add Levemir 10 units twice a day, sliding scale upgrade to medium level, check blood sugar every 4 hours -CHF: Acute on chronic diastolic per echo 05/11/17 EF 60-65% with severe pulmonary hypertension > 70 mmHg H, BNP 1248, chest x-ray with bilateral pleural effusion, continue diuresing with Bumex iv, monitor BMP and BNP, monitor urine output 09/05: Discussed with the family and the patient, they think she has change in her behavior because of the steroid, her wheezing improved we stop Solu-Medrol, I changed Levemir to 2 units twice a day for BG control, continues her sliding scale, check A1c, check BMP and BNP now and in a.m., patient received one dose of Lasix iv yesterday with good urine output, will change that to by mouth and monitor, PT OT Anika Long MD Sep 05, 2017 12:01
[2017-09-05] MEDS: DILTIAZEM HCL 90 MG TAB PO SCH ×2 (12:46→17:01)
--- NOTE | 2017-09-05 14:41 | PD.CONS ---
[facility] Service Cardiology Physicians Consult Requested By Dr Long Reason for Consult Afib RVR Primary Care Physician BELINDA Lopez History of Present Illness Information obtained from her Daughter and medical records. Difficulty with patient interview due to language barrier The patient is an 82 year old female well known to our practice with a cardiac history of chronic atrial fibrillation, ASHD, chronic systolic CHF, PPM, LVH, and HTN. Other notable history is chronic thombocytopenia, esophageal varacies, and hepatitis C. The patient presented to the hospital for a subacute onset of SOB, CP and hypertension. The patient's daughter stated her BP was ~250/130 mmHg on her home machine. On arrival she was noted to be hypertensive and tachycardic. Ischemic workup is negative. Troponin negative X 3. EKG negative for ischemic changes. BNP elevated. CXR stable compared with previous admission. Since admission, her HR is improving on Cardizem drip. Transitioning to Cardizem PO. Also on metoprolol for rate control. She is diuresing well. Renal function is okay. (Rosamaria Lowry) Review of Systems Consitutional: DENIES: Fatigue, Fever, Chills, Weight gain, Weight loss Eyes: DENIES: Amaurosis Fugax, Change in vision HEENT: DENIES: Lightheadedness, Change in hearing Respiratory: COMPLAINS OF: Shortness of breath, DENIES: See HPI, Cough, Snoring , Wheezing, Sputum production Cardiovascular: COMPLAINS OF: Chest pain, Tachycardia, DENIES: See HPI, Palpitations, Syncope Gastrointestinal: DENIES: Nausea, Vomiting, Change in bowel habits, Reflux, Bloody stools, Melena Genitourinary: DENIES: Urinary incontinence, Difficulty voiding Integumentary: DENIES: Rash Neurologic: DENIES: Tingling or numbness, Memory problems, Poor Balance, Stroke symptoms Musculoskeletal: DENIES: Joint pain, Muscle pain, Limited range of motion, Back pain Psychiatric: DENIES: Anxiety, Depression, Sleep disturbances Hematologic: DENIES: Bruising tendencies, Bleeding tendencies Endocrine: DENIES: Weight gain, Weight loss, Thyroid disease (Rosamaria Lowry ) Past Family Social History Allergies: Coded Allergies: penicillin G (Verified Allergy, Severe, Anaphylaxis, 09/03/17) Past Medical History See HPI Past Surgical History PPM Reported Medications Reported Meds & Active Scripts Active Januvia (Sitagliptin Phosphate) 50 Mg Tab 50 Mg PO BID Bumetanide 1 Mg Tab 1 Mg PO BID@,18 Oxygen (O2) Device 2 Liter CHRISTIAN.CANULA CONTINUOUS Oxygen Concentrator Portable Gaseous 2 L/min via Nasal Canula Continuous For 99 months Senna Lax (Sennosides) 8.6 Mg Tab 17.2 Mg PO DAILY Reported Lisinopril 5 Mg Tab 5 Mg PO DAILY Tresiba Flextouch Pen Inj (Insulin Degludec Inj) 300 unit/3 ML Pen 10 Units SQ HS Diltiazem (Diltiazem HCl) 90 Mg Tab 180 Mg PO BID Glimepiride 1 Mg Tab 1 Mg PO BID Take with breakfast or first main meal Ferrous Gluconate 325 Mg Tab 325 Mg PO TID Potassium Chloride ER (Potassium Chloride) 10 Meq Cap 10 Meq PO DAILY Xopenex Hfa 15 GM Inh (Levalbuterol 15 GM Inh) 45 Mcg/Act Aer 45 Mcg INH Q6HR Shake well before using. (1 puff = 45 mcg) Brovana Neb (Arformoterol Neb) 15 Mcg/2 Ml Vial 1 Nebule NEB BID Maintenance treatment of bronchoconstriction in COPD. Alendronate (Alendronate Sodium) 70 Mg Tab 70 Mg PO Q7D Proair Hfa 8.5 GM Inh (Albuterol Sulfate) 90 Mcg/Act Aer 1 Puff INH BID PRN 108 mcg/actuation Eliquis (Apixaban) 2.5 Mg Tab 2.5 Mg PO BID Zantac (Ranitidine HCl) 150 Mg Tab 150 Mg PO DAILY Levothyroxine (Levothyroxine Sodium) 125 Mcg Tab 125 Mcg PO DAILY Symbicort Inh (Budesonide/Formoterol Fumarate) 160-4.5 Mcg/Act Aero 2 Puff INH BID Active Ordered Medications Current Medications Medications (Trade) Dose Ordered Sig/Marlon Route Start Time Stop Time Status Last Admin (D50w (Vial) Inj) 50 ml UNSCH PRN IV PUSH 09/03/17 23:45 (Glucagon Inj) 1 mg UNSCH PRN OTHER 09/03/17 23:45 (NS Flush) 2 ml UNSCH PRN IV FLUSH 09/03/17 23:45 (NS Flush) 2 ml BID IV FLUSH 09/04/17 09:00 09/05/17 09:22 (Zofran Inj) 4 mg Q6H PRN IVP 09/03/17 23:45 (Tylenol) 650 mg Q6H PRN PO 09/03/17 23:45 ([place] 5-325 Mg) 1 tab Q4H PRN PO 09/03/17 23:45 (Morphine Inj) 2 mg Q3H PRN IV PUSH 09/03/17 23:45 (Arianne-Colace) 1 tab BID PO 09/04/17 09:00 09/05/17 09:19 (Milk Of Magnesia Liq) 30 ml Q12H PRN PO 09/03/17 23:45 (Senokot) 17.2 mg Q12H PRN PO 09/03/17 23:45 (Dulcolax Supp) 10 mg DAILY PRN RECTAL 09/03/17 23:45 (Lactulose Liq) 30 ml DAILY PRN PO 09/03/17 23:45 (Bumex Inj) 1 mg BID@,18 IV PUSH 09/04/17 09:00 09/05/17 09:23 (Pepcid Inj) 10 mg Q12H IV PUSH 09/04/17 00:00 09/05/17 11:09 Diltiazem HCl 125 mg/Sodium Chloride 125 ml @ 5 mls/hr TITRATE PRN IV 09/04/17 09:30 09/04/17 19:30 (Eliquis) 2.5 mg BID PO 09/04/17 11:00 09/05/17 09:21 (Symbicort 160-4.5 Inh) 2 puff BID INH 09/04/17 21:00 09/05/17 09:19 (Amaryl) 1 mg BID PO 09/04/17 21:00 09/05/17 09:19 (Synthroid) 125 mcg DAILY@0600 PO 09/05/17 06:00 09/05/17 05:05 (Prinivil) 5 mg DAILY PO 09/05/17 09:00 09/05/17 09:20 (KCl) 10 meq DAILY PO 09/05/17 09:00 09/05/17 09:19 (Januvia) 50 mg BID PO 09/04/17 21:00 09/05/17 09:20 (Atrovent Neb) 1 mg Q2HR NEB PRN NEB 09/04/17 12:45 (Atrovent Neb) 0.5 mg Q4HR WHILE AWAKE NEB NEB 09/04/17 16:00 09/05/17 12:23 (Xopenex Neb) 0.63 mg Q4HR WHILE AWAKE NEB NEB 09/04/17 16:00 09/05/17 12:23 (Lopressor) 25 mg Q12HR PO 09/04/17 21:00 09/05/17 09:19 (Ativan) 0.5 mg Q8H PRN PO 09/04/17 15:45 09/04/17 17:51 (NovoLIN R SUPPLEMENTAL SCALE) 1 Q3HR SQ 09/04/17 20:00 09/05/17 11:00 (Cardizem) 90 mg Q6HR PO 09/05/17 12:00 09/05/17 12:46 (Levemir Inj) 10 units BID SQ 09/05/17 21:00 (Deltasone) 20 mg BID PO 09/05/17 21:00 Family History non contributory Social History , lives with daughter, non smoker, no current ETOH use (Rosamaria Lowry) Physical Exam Vital Signs Vital Signs Date Time Temp Pulse Resp B/P (MAP) Pulse Ox O2 Delivery O2 Flow Rate FiO2 09/05/17 07:00 102 09/05/17 06:09 89 09/05/17 05:22 99 09/05/17 04:22 97 09/05/17 03:35 98.6 81 18 135/76 (95) 99 09/05/17 03:00 96 09/05/17 01:00 80 09/05/17 00:00 82 09/04/17 23:00 98.7 83 18 129/77 (94) 99 09/04/17 23:00 94 09/04/17 20:32 98 Nasal Cannula 2.00 09/04/17 20:00 104 09/04/17 19:30 120 155/85 09/04/17 19:00 109 09/04/17 19:00 99.0 115 18 150/87 (108) 98 09/04/17 18:00 104 09/04/17 17:00 128 09/04/17 16:00 122 09/04/17 15:21 135 177/108 09/04/17 15:00 106 09/04/17 15:00 99.1 107 16 156/105 (122) 94 Physical Exam GENERAL: Elderly female sitting up in the chair SKIN: Warm and dry. HEAD: Normocephalic. EYES: No scleral icterus. No injection or drainage. NECK: Supple, trachea midline. No JVD or lymphadenopathy. CARDIOVASCULAR: Irreg irreg, systolic murmur, tachycardia RESPIRATORY: Breath sounds equal bilaterally. No accessory muscle use. Left base rales, nasal cannula GASTROINTESTINAL: Abdomen soft, non-tender, nondistended. MUSCULOSKELETAL: No cyanosis, or edema. BACK: Nontender without obvious deformity. No CVA tenderness. Laboratory Laboratory Tests Test 09/05/17 13:33 (Rosamaria Lowry) Result Diagram: 09/04/17 1044 09/04/17 1044 Imaging Last 72 hours Impressions Chest X-Ray 09/03/172150 Signed Impressions: Service Date/Time: Sunday, September 03, 2017 21:53 - CONCLUSION: No significant change has occurred. Fede Goldstein MD (Rosamaria Lowry) Assessment and Plan Assessment and Plan Chronic atrial fibrillation with RVR Acute on chronic diastolic CHF exacerbation COPD exacerbation Chronic thrombocytopenia Hyperglycemia Renal insufficiency PLAN: Transition to cardizem PO Continue metoprolol Check limited echo for LV function Glucose control per Hospitalist Continue diuresis IV with careful monitoring of renal function The patient was seen and evaluated by Dr Day who completed face to face encounter and physical exam and participated in evaluation and management. (Rosamaria Lowry) Assessment and Plan The exam, history, and the medical decision-making described in the above note were completed with the assistance of the mid-level provider. I reviewed and agree with the findings presented. I attest that I had a [id number] encounter with the patient on the same day, and personally performed and documented my assessment and findings in the medical record. Will control bp and HR (Chuck Day MD) Rosamaria Lowry Sep 05, 2017 14:41 Chuck Day MD Sep 05, 2017 19:29
[2017-09-05] MEDS ORDERED: DEXTROSE 50% IN WATER 50 ML VIAL(D50) IV PUSH PRN (16:15)
[2017-09-05] MEDS ORDERED: GLUCAGON 1 MG/ML VIAL OTHER PRN (16:15)
[2017-09-05 16:33] LABS: HEMOGLOBIN A1a 0.9 %; HEMOGLOBIN A1b 0.7 %; HEMOGLOBIN Ao 82.1 %; HEMOGLOBIN F 1.2 %; HEMOGLOBIN LA1C 2.2 %; HEMOGLOBIN P3 6.3 %
[2017-09-05] MEDS: MEDIUM DOSE INSULIN NOVOLIN REGULAR SUPPLEMENTAL SCALE SQ SCH ×2 (17:01→21:18)
[2017-09-05 17:12] LABS: BACTERIA, URINE RARE /hpf; BLOOD, URINE MOD (NEG); COMMENT (UR) CULT NOT INDICATED; CULTURE IF INDICATED CULT NOT INDICATED; GLUCOSE,URINE NEG (NEG); KETONE, URINE NEG (NEG); MUCUS URINE FEW /lpf (OCC); NITRITE,URINE NEG (NEG); PH, URINE 5.5 (5.0-8.5); SQUAMOUS EPITHELIAL CELL URINE 1 /hpf (0-5); URINE COLOR YELLOW (YELLW/STRAW)
[2017-09-05] MEDS: predniSONE 20 MG TAB PO SCH (20:52)
[2017-09-05] MEDS ORDERED: methylPREDNISolone SOD SUCC 40 MG/1 ML VIAL IV PUSH SCH (21:00)
[2017-09-06] VITALS (23 sets, daily range): BP systolic 151–162; BP diastolic 67–92; PULSE 70–100; RESP 14–18; TEMP 98.1–98.5; O2SAT 92–100
[2017-09-06] MEDS: DILTIAZEM HCL 90 MG TAB PO SCH ×4 (00:01→18:23)
[2017-09-06] MEDS: MEDIUM DOSE INSULIN NOVOLIN REGULAR SUPPLEMENTAL SCALE SQ SCH ×3 (00:02→08:00)
[2017-09-06] MEDS: FAMOTIDINE 20 MG/2 ML VIAL IV PUSH SCH ×2 (00:04→12:06)
[2017-09-06] MEDS: INSULIN NovoLIN REGULAR SUPPLEMENTAL SCALE SQ SCH ×5 (02:00→14:00)
[2017-09-06] MEDS: LEVOTHYROXINE SODIUM 125 MCG TAB PO SCH (06:10)
[2017-09-06 07:32] LABS: BICARBONATE 30.5 MEQ/L (21.0-32.0); POTASSIUM 3.8 MEQ/L (3.5-5.1)
[2017-09-06] MEDS: RESP: IPRATROPIUM 0.5 MG/2.5 ML NEB NEB SCH ×3 (08:23→16:00)
[2017-09-06] MEDS: RESP: LEVALBUTEROL HYDROCHLORIDE 0.63 MG/3 ML NEB (SCH) NEB ×3 (08:24→16:00)
[2017-09-06] MEDS: METOPROLOL TARTRATE 25 MG TAB PO SCH (09:38)
[2017-09-06] MEDS: BUMETANIDE INJ 1 MG/4 ML VIAL IV PUSH SCH (09:38)
[2017-09-06] MEDS: POTASSIUM CHLORIDE 10 MEQ CAP PO SCH (09:38)
[2017-09-06] MEDS: DOCUSATE SODIUM 50 MG/SENNA 8.6 MG TAB PO SCH (09:38)
[2017-09-06] MEDS: LISINOPRIL 5 MG TAB PO SCH (09:38)
[2017-09-06] MEDS: predniSONE 20 MG TAB PO SCH (09:38)
[2017-09-06] MEDS: BUDESONIDE-FORMOTEROL 160/4.5 MCG INHALER INH SCH (09:39)
[2017-09-06] MEDS: APIXABAN 2.5 MG TABLET PO SCH (09:39)
[2017-09-06] MEDS: GLIMEPIRIDE 1 MG TAB PO SCH (09:39)
[2017-09-06] MEDS: SODIUM CHLORIDE 0.9% FLUSH 10 ML FLUSH IV FLUSH SCH (09:39)
[2017-09-06] MEDS: INSULIN DETEMIR 100 UNITS/ML VIAL SQ SCH (10:03)
[2017-09-06] MEDS ORDERED: METO25TA3 PO (10:23)
[2017-09-06] MEDS ORDERED: NOVORP2 SQ (10:23)
--- NOTE | 2017-09-06 10:45 | HHI.FF ---
Face to Face Verification Diagnosis: (1) Chest pain (2) CAD (coronary artery disease) (3) DM (diabetes mellitus) (4) A-fib (5) CHF (congestive heart failure) (6) Atrial fibrillation with rapid ventricular response Physical Therapy Order: Evaluate and Treat Occupational Therapy Order: Evaluate and Treat Home Health Nursing Order: Medical education Nursing assessment with vital signs I have seen patient Toshia Ortiz on 09/06/17. My clinical findings support the need for the requested home health care services because: Limited ability to care for self I certify that my clinical findings support that this patient is homebound because: Hx COPD- exertion dyspnea/weakness Anika Long MD Sep 06, 2017 10:45
--- NOTE | 2017-09-06 12:28 | ECHRPT ---
Indication: EF assessment of chf CONCLUSIONS The left ventricular systolic function is normal with an estimated ejection fraction in the range of 60-65%. Mild concentric left ventricular hypertrophy. Mild mitral valve regurgitation. There is moderate tricuspid regurgitation. There is estimated gexvjvef-nv-hgykkt pulmonary hypertension present (range 60-70 mmHg). Mild pulmonary valve regurgitation. Compared to an echo from April 2017, no significant change noted BP: 156 / 89 HR: 76 Rhythm: Sinus MEASUREMENTS (Male / Female) Normal Values Technical Quality:Good 2D ECHO LV Diastolic Diameter PLAX 4.1 cm 4.2 - 5.9 / 3.9 - 5.3 cm LV Systolic Diameter PLAX 2.9 cm IVS Diastolic Thickness 1.1 cm 0.6 - 1.0 / 0.6 - 0.9 cm LVPW Diastolic Thickness 1.1 cm 0.6 - 1.0 / 0.6 - 0.9 cm LV Relative Wall Thickness 0.6 RV Internal Dim ED PLAX 2.8 cm LVOT Diameter 1.9 cm LA Systolic Diameter LX 3.7 cm 3.0 - 4.0 / 2.7 - 3.8 cm M-MODE Aortic Root Diameter MM 2.1 cm AV Cusp Separation MM 1.3 cm DOPPLER AV Peak Velocity 206.0 cm/s AV Peak Gradient 17.0 mmHg LVOT Peak Velocity 94.1 cm/s LVOT Peak Gradient 3.5 mmHg AV Area Cont Eq pk 1.3 cm MV Area PHT 7.3 cm LV E' Lateral Velocity 7.2 cm/s LV E' Septal Velocity 5.8 cm/s TR Peak Velocity 367.0 cm/s TR Peak Gradient 53.9 mmHg Right Atrial Pressure 10.0 mmHg Pulmonary Artery Systolic Pressu 63.9 mmHg Right Ventricular Systolic Press 63.9 mmHg PV Peak Velocity 100.0 cm/s PV Peak Gradient 4.0 mmHg FINDINGS LEFT VENTRICLE The left ventricular systolic function is normal with an estimated ejection fraction in the range of 60-65%. Normal left ventricular size. Mild concentric left ventricular hypertrophy. No regional wall motion abnormalities are present. RIGHT VENTRICLE The right ventricular size is normal. The right ventricular systoilc function is normal. LEFT ATRIUM The left atrial size is moderately dilated. RIGHT ATRIUM The right atrial size is mildly dilated. ATRIAL SEPTUM Normal atrial septal thickness. AORTA The aortic root and proximal ascending aorta are normal in size on limited imaging. MITRAL VALVE Mild thickening of the mitral valve leaflets. Moderate mitral annular calcification. Mild mitral valve regurgitation. AORTIC VALVE Diffuse calcification of the aortic valve. No aortic valve stenosis. No aortic valve regurgitation. TRICUSPID VALVE Structurally normal tricuspid valve. There is moderate tricuspid regurgitation. The estimated pulmonary arterial pressure is 63.9 mmHg. There is estimated ljhjxyiu-md-pzuxlv pulmonary hypertension present (range 60-70 mmHg). PULMONARY VALVE The pulmonary valve is not well visualized. Mild pulmonary valve regurgitation. VESSELS The inferior vena cava is dilated. There is less than 50% respiratory change in dimension of the inferior vena cava (abnormal). PERICARDIUM No pericardial effusion. Morales Gonzalez DO (Electronically Signed) Final Date:06 September 2017 12:27
[2017-09-06 13:34] LABS: BICARBONATE 27.9 MEQ/L (21.0-32.0); POTASSIUM 3.8 MEQ/L (3.5-5.1)
[2017-09-06] MEDS ORDERED: BUME1TAB PO (14:15)
--- NOTE | 2017-09-06 14:22 | HHI.PR ---
Subjective Remarks doing well her pastors were at the bedside stable to go to rehab or home with [facility] Objective Vitals Vital Signs Date Time Temp Pulse Resp B/P (MAP) Pulse Ox O2 Delivery O2 Flow Rate FiO2 09/06/17 12:21 98 09/06/17 11:10 89 09/06/17 11:08 98.1 75 14 156/81 (106) 09/06/17 10:12 90 09/06/17 09:32 75 09/06/17 08:27 92 09/06/17 08:13 76 09/06/17 07:57 98.5 79 14 156/89 (111) 96 09/06/17 07:35 76 09/06/17 06:00 74 09/06/17 05:00 70 09/06/17 04:00 98.2 78 18 162/67 (98) 97 09/06/17 04:00 87 09/06/17 03:00 86 09/06/17 02:00 88 09/06/17 01:00 90 09/06/17 00:00 89 09/06/17 00:00 98.1 90 18 151/92 (111) 100 09/05/17 23:00 82 09/05/17 22:00 108 09/05/17 21:00 108 09/05/17 20:00 106 09/05/17 20:00 98.3 108 18 147/89 (108) 100 09/05/17 19:00 108 09/05/17 18:00 84 09/05/17 17:00 88 09/05/17 16:00 86 09/05/17 15:00 78 09/05/17 15:00 98.0 89 20 122/75 (91) 99 I/O 09/05/17 09/05/17 09/05/17 09/06/17 09/06/17 09/06/17 07:00 15:00 23:00 07:00 15:00 23:00 Intake Total 450 ml 320 ml 240 ml Output Total 500 ml 300 ml Balance -50 ml 20 ml 240 ml Intake Oral 240 ml 320 ml 240 ml IV Total 210 ml Output Urine Total 500 ml 300 ml # Voids 2 1 2 # Bowel Movements 2 Result Diagram: 09/04/17 1044 09/06/17 1213 Objective Remarks GENERAL: This is a well-nourished, well-developed patient, in no apparent distress. CARDIOVASCULAR: Regular rate and irregular rhythm without murmurs, gallops, or rubs. RESPIRATORY: Positive bilateral wheezing GASTROINTESTINAL: Abdomen soft, non-tender, nondistended. Normal, active bowel sounds MUSCULOSKELETAL: Extremities without clubbing, cyanosis, or edema. NEURO: Alert & Oriented x4 to person, place, time, situation. Moves all ext x4 A/P Problem List: (1) Chest pain ICD Code: R07.9 - Chest pain, unspecified Status: Acute (2) CHF (congestive heart failure) ICD Code: I50.9 - Heart failure, unspecified Status: Acute (3) A-fib ICD Code: I48.91 - Atrial fibrillation Status: Chronic (4) COPD (chronic obstructive pulmonary disease) ICD Code: J44.9 - Chronic obstructive pulmonary disease, unspecified Status: Chronic (5) HTN (hypertension) ICD Code: I10 - Essential (primary) hypertension (6) Renal insufficiency ICD Code: N28.9 - Disorder of kidney and ureter, unspecified Status: Acute (7) Thrombocytopenia ICD Code: D69.6 - Thrombocytopenia Status: Chronic (8) DM (diabetes mellitus) ICD Code: E11.9 - Diabetes mellitus Status: Chronic Assessment and Plan 82 years old female admitted with -Acute on chronic A. fib with RVR: Reach 160, I placed patient on Cardizem drip , she takes 180 times a day will verify this dose, continue elliquis, will monitor closely, now she is on maximum 15 mg, heart rate still at 1:30 will continue with the drip may need to add another agent like Lopressor if blood pressure allow -Chest pain: Rule out ACS, cardiac enzyme negative, EKG no ischemic changes, reviewed personally by me, possibly due to A. fib with RVR -Chronic respiratory failure, due to COPD: Positive wheezing with short of breath, continue DuoNeb, tapering Solu-Medrol, Symbicort -Hypertension: Uncontrolled, patient on Cardizem drip will continue monitoring -Diabetes mellitus uncontrolled: Add Levemir 10 units twice a day, sliding scale upgrade to medium level, check blood sugar every 4 hours -CHF: Acute on chronic diastolic per echo 05/11/17 EF 60-65% with severe pulmonary hypertension > 70 mmHg H, BNP 1248, chest x-ray with bilateral pleural effusion, continue diuresing with Bumex iv, monitor BMP and BNP, monitor urine output 09/05: Discussed with the family and the patient, they think she has change in her behavior because of the steroid, her wheezing improved we stop Solu-Medrol, I changed Levemir to 2 units twice a day for BG control, continues her sliding scale, check A1c, check BMP and BNP now and in a.m., patient received one dose of Lasix iv yesterday with good urine output, will change that to by mouth and monitor, PT OT 09/06: PT rec rehab however pt declined , will send with [facility] , Anika Steele MD Sep 06, 2017 14:22
--- NOTE | 2017-09-06 15:14 | PD.CARD.PN ---
Subjective Subjective Remarks She feels "like herself". Denies CP or SOB. Continues to have BLE and elevated JVD (Rosamaria Lowry) Objective Medications Current Medications Medications (Trade) Dose Ordered Sig/Marlon Route Start Time Stop Time Status Last Admin (D50w (Vial) Inj) 50 ml UNSCH PRN IV PUSH 09/03/17 23:45 (Glucagon Inj) 1 mg UNSCH PRN OTHER 09/03/17 23:45 (NS Flush) 2 ml UNSCH PRN IV FLUSH 09/03/17 23:45 (NS Flush) 2 ml BID IV FLUSH 09/04/17 09:00 09/06/17 09:39 (Zofran Inj) 4 mg Q6H PRN IVP 09/03/17 23:45 (Tylenol) 650 mg Q6H PRN PO 09/03/17 23:45 ([place] 5-325 Mg) 1 tab Q4H PRN PO 09/03/17 23:45 (Morphine Inj) 2 mg Q3H PRN IV PUSH 09/03/17 23:45 (Arianne-Colace) 1 tab BID PO 09/04/17 09:00 09/06/17 09:38 (Milk Of Magnesia Liq) 30 ml Q12H PRN PO 09/03/17 23:45 (Senokot) 17.2 mg Q12H PRN PO 09/03/17 23:45 (Dulcolax Supp) 10 mg DAILY PRN RECTAL 09/03/17 23:45 (Lactulose Liq) 30 ml DAILY PRN PO 09/03/17 23:45 (Pepcid Inj) 10 mg Q12H IV PUSH 09/04/17 00:00 09/06/17 12:06 Diltiazem HCl 125 mg/Sodium Chloride 125 ml @ 5 mls/hr TITRATE PRN IV 09/04/17 09:30 09/05/17 08:00 (Eliquis) 2.5 mg BID PO 09/04/17 11:00 09/06/17 09:39 (Symbicort 160-4.5 Inh) 2 puff BID INH 09/04/17 21:00 09/06/17 09:39 (Amaryl) 1 mg BID PO 09/04/17 21:00 09/06/17 09:39 (Synthroid) 125 mcg DAILY@0600 PO 09/05/17 06:00 09/06/17 06:10 (Prinivil) 5 mg DAILY PO 09/05/17 09:00 09/06/17 09:38 (KCl) 10 meq DAILY PO 09/05/17 09:00 09/06/17 09:38 (Januvia) 50 mg BID PO 09/04/17 21:00 09/06/17 09:58 (Atrovent Neb) 1 mg Q2HR NEB PRN NEB 09/04/17 12:45 (Atrovent Neb) 0.5 mg Q4HR WHILE AWAKE NEB NEB 09/04/17 16:00 09/06/17 12:26 (Xopenex Neb) 0.63 mg Q4HR WHILE AWAKE NEB NEB 09/04/17 16:00 09/06/17 12:26 (Lopressor) 25 mg Q12HR PO 09/04/17 21:00 09/06/17 09:38 (Ativan) 0.5 mg Q8H PRN PO 09/04/17 15:45 09/04/17 17:51 (NovoLIN R SUPPLEMENTAL SCALE) 1 Q3HR SQ 09/04/17 20:00 09/06/17 11:00 (Cardizem) 90 mg Q6HR PO 09/05/17 12:00 09/06/17 12:06 (Levemir Inj) 10 units BID SQ 09/05/17 21:00 09/06/17 10:03 (Deltasone) 20 mg BID PO 09/05/17 21:00 09/06/17 09:38 (D50w (Vial) Inj) 50 ml UNSCH PRN IV PUSH 09/05/17 16:15 (Glucagon Inj) 1 mg UNSCH PRN OTHER 09/05/17 16:15 (NovoLIN R SUPPLEMENTAL SCALE) 1 Q4HR SQ 09/05/17 16:00 09/06/17 00:02 (Bumetanide) 1 mg BID@,18 PO 09/06/17 18:00 Vital Signs / I&O Vital Signs Date Time Temp Pulse Resp B/P (MAP) Pulse Ox O2 Delivery O2 Flow Rate FiO2 09/06/17 12:21 98 09/06/17 11:10 89 09/06/17 11:08 98.1 75 14 156/81 (106) 09/06/17 10:12 90 09/06/17 09:32 75 09/06/17 08:27 92 09/06/17 08:13 76 09/06/17 07:57 98.5 79 14 156/89 (111) 96 09/06/17 07:35 76 09/06/17 06:00 74 09/06/17 05:00 70 09/06/17 04:00 98.2 78 18 162/67 (98) 97 09/06/17 04:00 87 09/06/17 03:00 86 09/06/17 02:00 88 09/06/17 01:00 90 09/06/17 00:00 89 09/06/17 00:00 98.1 90 18 151/92 (111) 100 09/05/17 23:00 82 09/05/17 22:00 108 09/05/17 21:00 108 09/05/17 20:00 106 09/05/17 20:00 98.3 108 18 147/89 (108) 100 09/05/17 19:00 108 09/05/17 18:00 84 09/05/17 17:00 88 09/05/17 16:00 86 I/O 09/05/17 09/05/17 09/05/17 09/06/17 09/06/17 09/06/17 07:00 15:00 23:00 07:00 15:00 23:00 Intake Total 450 ml 320 ml 240 ml Output Total 500 ml 300 ml Balance -50 ml 20 ml 240 ml Intake Oral 240 ml 320 ml 240 ml IV Total 210 ml Output Urine Total 500 ml 300 ml # Voids 2 1 2 # Bowel Movements 2 Physical Exam GENERAL: Elderly female, sitting up in the chair SKIN: Warm and dry. HEAD: Normocephalic. EYES: No scleral icterus. No injection or drainage. NECK: Supple, trachea midline. 4 cm JVD CARDIOVASCULAR: Irreg irreg RESPIRATORY: Breath sounds equal bilaterally. No accessory muscle use.Bilateral rales GASTROINTESTINAL: Abdomen soft, non-tender, nondistended. MUSCULOSKELETAL: No cyanosis,1+ edema BACK: Nontender without obvious deformity. No CVA tenderness. Laboratory Laboratory Tests Test 09/05/17 16:36 09/06/17 05:28 09/06/17 12:13 Urine Color YELLOW Urine Turbidity CLEAR Urine pH 5.5 Urine Specific [place] 1.014 Urine Protein 30 mg/dL Urine Glucose (UA) NEG mg/dL Urine Ketones NEG mg/dL Urine Occult Blood MOD Urine Nitrite NEG Urine Bilirubin NEG Urine Urobilinogen LESS THAN 2.0 MG/DL Urine Leukocyte Esterase SMALL Urine RBC 2 /hpf Urine WBC 2 /hpf Urine Squamous Epithelial Cells 1 /hpf Urine Bacteria RARE /hpf Urine Mucus FEW /lpf Microscopic Urinalysis Comment CULT NOT INDICATED Blood Urea Nitrogen 37 MG/DL 36 MG/DL Creatinine 1.21 MG/DL 1.23 MG/DL Random Glucose 94 MG/DL 219 MG/DL Calcium Level 9.1 MG/DL 9.4 MG/DL Sodium Level 138 MEQ/L 134 MEQ/L Potassium Level 3.8 MEQ/L 3.8 MEQ/L Chloride Level 99 MEQ/L 96 MEQ/L Carbon Dioxide Level 30.5 MEQ/L 27.9 MEQ/L Anion Gap 9 MEQ/L 10 MEQ/L Estimat Glomerular Filtration Rate 42 ML/MIN 42 ML/MIN B-Type Natriuretic Peptide 589 PG/ML Imaging Last 72 hours Impressions Chest X-Ray 09/03/172150 Signed Impressions: Service Date/Time: Sunday, September 03, 2017 21:53 - CONCLUSION: No significant change has occurred. Fede Goldstein MD (Rosamaria Lowry) Assessment and Plan Assessment and Plan Chronic atrial fibrillation with RVR Acute on chronic diastolic CHF exacerbation COPD exacerbation Chronic thrombocytopenia Hyperglycemia Renal insufficiency PLAN: Continue cardizem Continue metoprolol Metolazone 2.5 mg X 1 now Check limited echo for LV function Glucose control per Hospitalist The patient was seen and evaluated by Dr Day who completed face to face encounter and physical exam and participated in evaluation and management. (Rosamaria Lowry) Assessment and Plan The exam, history, and the medical decision-making described in the above note were completed with the assistance of the mid-level provider. I reviewed and agree with the findings presented. I attest that I had a [id number] encounter with the patient on the same day, and personally performed and documented my assessment and findings in the medical record.Stable CV (Chuck Day MD) Rosamaria Lowry Sep 06, 2017 15:14 Chuck Day MD Sep 07, 2017 13:23
[2017-09-06] MEDS ORDERED: METOLAZONE 2.5 MG TAB PO ONE (16:00)
[2017-09-06] MEDS ORDERED: BUMETANIDE 1 MG TAB PO SCH (18:00)
--- NOTE | 2017-09-06 18:31 | HHI.DS ---
Discharge Summary Admission Date Sep 05, 2017 at 11:51 Discharge Date: Sep 06, 2017 Admitting Diagnosis congestive heart failure, atrial fibrillation with RVR (1) Chest pain ICD Code: R07.9 - Chest pain, unspecified Status: Acute (2) CHF (congestive heart failure) ICD Code: I50.9 - Heart failure, unspecified Status: Acute (3) A-fib ICD Code: I48.91 - Atrial fibrillation Status: Chronic (4) COPD (chronic obstructive pulmonary disease) ICD Code: J44.9 - Chronic obstructive pulmonary disease, unspecified Status: Chronic (5) HTN (hypertension) ICD Code: I10 - Essential (primary) hypertension (6) Renal insufficiency ICD Code: N28.9 - Disorder of kidney and ureter, unspecified Status: Acute (7) Thrombocytopenia ICD Code: D69.6 - Thrombocytopenia Status: Chronic (8) DM (diabetes mellitus) ICD Code: E11.9 - Diabetes mellitus Status: Chronic Procedures see below Brief History - From Admission This is an 82-year-old female with a PMH of HTN, CHF (Echo 05/11/17 w/ EF 60-65% , Severe Pulm HTN >70mmHg), A-fib on Eliquis, Hepatitis C, Hyperlipidemia, COPD , O2 Dependent and DM who was brought to the ER secondary to c/o chest pain and SOB starting earlier tonight. Previous admit 07/09-07/14/17 for similar complaints, treated for A-fib w/ RVR, CHF and COPD, switched to Bumex PO at time of d/c. Had been doing well per Daughter until today when pt had c/o SOB. Follows w/ Dr. Villagran and Dr. Eisenberg as outpatient, has appt on Tuesday. On arrival, BP 168/94, HR 113, O2 sat 94% on RA, Afebrile. CBC at baseline. Platelets 111, previously 88 on 07/14/17. Creatinine 1.15, previously 1.40 on . Troponin negative. EKG with A. fib, no evidence of ischemia. BNP 1248. CXR w/ bilateral pleural effusions, s/p Lasix 40mg IV in ER w/ good diuresis. CBC/BMP: 09/04/17 1044 09/06/17 1213 Significant Findings Laboratory Tests Test 09/03/17 22:00 09/04/17 04:57 09/04/17 10:44 09/05/17 13:33 Red Blood Count 3.58 MIL/MM3 (4.00-5.30) 3.88 MIL/MM3 (4.00-5.30) Hemoglobin 10.3 GM/DL (11.6-15.3) 11.2 GM/DL (11.6-15.3) Hematocrit 31.2 % (35.0-46.0) 33.8 % (35.0-46.0) Platelet Count 111 TH/MM3 (150-450) 86 TH/MM3 (150-450) Monocytes (%) (Auto) 12.3 % (0.0-8.0) Monocytes # (Auto) 1.1 TH/MM3 (0-0.9) Prothrombin Time 12.0 SEC (9.8-11.6) Blood Urea Nitrogen 20 MG/DL (7-18) 24 MG/DL (7-18) Creatinine 1.15 MG/DL (0.50-1.00) 1.29 MG/DL (0.50-1.00) Random Glucose 340 MG/DL (74-106) 492 MG/DL (74-106) Total Protein 9.2 GM/DL (6.4-8.2) 8.7 GM/DL (6.4-8.2) Calcium Level 8.4 MG/DL (8.5-10.1) 8.4 MG/DL (8.5-10.1) Sodium Level 134 MEQ/L (136-145) 134 MEQ/L (136-145) Anion Gap 4 MEQ/L (5-15) Estimat Glomerular Filtration Rate 45 ML/MIN (>89) 39 ML/MIN (>89) B-Type Natriuretic Peptide 1248 PG/ML (0-100) 734 PG/ML (0-100) Troponin I LESS THAN 0.02 NG/ML LESS THAN 0.02 NG/ML White Blood Count 3.8 TH/MM3 (4.0-11.0) Neutrophils (%) (Auto) 87.3 % (16.0-70.0) Lymphocytes # (Auto) 0.4 TH/MM3 (1.0-4.8) Platelet Estimate LOW (NORMAL) Ovalocytes 1+ (NORMAL) Albumin 3.1 GM/DL (3.4-5.0) Chloride Level 97 MEQ/L (98-107) Hemoglobin A1c 7.8 % (4.3-6.0) Test 09/05/17 16:36 09/06/17 05:28 09/06/17 12:13 Urine Protein 30 mg/dL (NEG-TRACE) Urine Occult Blood MOD (NEG) Urine Leukocyte Esterase SMALL (NEG) Urine Bacteria RARE /hpf (NONE) Urine Mucus FEW /lpf (OCC) Blood Urea Nitrogen 37 MG/DL (7-18) 36 MG/DL (7-18) Creatinine 1.21 MG/DL (0.50-1.00) 1.23 MG/DL (0.50-1.00) Estimat Glomerular Filtration Rate 42 ML/MIN (>89) 42 ML/MIN (>89) Random Glucose 219 MG/DL (74-106) Sodium Level 134 MEQ/L (136-145) Chloride Level 96 MEQ/L (98-107) B-Type Natriuretic Peptide 589 PG/ML (0-100) PE at Discharge GENERAL: This is a well-nourished, well-developed patient, in no apparent distress. CARDIOVASCULAR: Regular rate and irregular rhythm without murmurs, gallops, or rubs. RESPIRATORY: Positive bilateral wheezing GASTROINTESTINAL: Abdomen soft, non-tender, nondistended. Normal, active bowel sounds MUSCULOSKELETAL: Extremities without clubbing, cyanosis, or edema. NEURO: Alert & Oriented x4 to person, place, time, situation. Moves all ext x4 Hospital Course 82 years old female admitted with Acute on chronic A. fib with RVR: Reach 160, I placed patient on Cardizem drip, she takes 180 times a day will verify this dose, continue elliquis, will monitor closely, now she is on maximum 15 mg, heart rate still at 1:30 will continue with the drip may need to add another agent like Lopressor if blood pressure allow -Chest pain: Rule out ACS, cardiac enzyme negative, EKG no ischemic changes, reviewed personally by me, possibly due to A. fib with RVR -Chronic respiratory failure, due to COPD: Positive wheezing with short of breath, continue DuoNeb, tapering Solu-Medrol, Symbicort -Hypertension: Uncontrolled, patient on Cardizem drip will continue monitoring -Diabetes mellitus uncontrolled: Add Levemir 10 units twice a day, sliding scale upgrade to medium level, check blood sugar every 4 hours -CHF: Acute on chronic diastolic per echo 05/11/17 EF 60-65% with severe pulmonary hypertension > 70 mmHg H, BNP 1248, chest x-ray with bilateral pleural effusion, continue diuresing with Bumex iv, monitor BMP and BNP, monitor urine output on 09/05: Discussed with the family and the patient, they think she has change in her behavior because of the steroid, her wheezing improved we stop Solu- Medrol, I changed Levemir to 2 units twice a day for BG control, continues her sliding scale, check A1c, check BMP and BNP now and in a.m., patient received one dose of Lasix iv yesterday with good urine output, will change that to by mouth and monitor, PT OT on 09/06: PT rec rehab however pt declined , will send with [facility] , stable d/w pt , family , nurse , CM Pt Condition on Discharge: Fair Discharge Disposition: Disch w/ Home Health Serv Discharge Time: > 30 minutes Discharge Instructions DIET: Follow Instructions for: Heart Healthy Diet, Diabetic Diet Activities you can perform: See Additionl Instruction Other Activity Instructions: per PT New Medications: Bumetanide (Bumetanide) 1 Mg Tab 0.5 MG PO BID@09,18 for dieuretic, #60 TAB Insulin Human Regular Inj (Novolin R Inj) 1,000 Unit/10 Ml Vial 1 UNIT SQ Q4HR for dm for 30 Days, INJECTION Metoprolol Tartrate (Metoprolol Tartrate) 25 Mg Tab 25 MG PO Q12HR for afib, #60 TAB Continued Medications: Alendronate (Alendronate) 70 Mg Tab 70 MG PO Q7D for Osteporosis Treatment, #4 TAB 0 Refills Apixaban (Eliquis) 2.5 Mg Tab 2.5 MG PO BID for Blood Clot Prevention, TAB 0 Refills Arformoterol Neb (Brovana Neb) 15 Mcg/2 Ml Vial 1 NEBULE NEB BID for Broncospasm, #60 NEBULE Maintenance treatment of bronchoconstriction in COPD. Budesonide-Formoterol Inh (Symbicort Inh) 160-4.5 Mcg/Act Aero 2 PUFF INH BID, #1 INHALER 0 Refills Diltiazem (Diltiazem) 90 Mg Tab 180 MG PO BID for Angina, #120 TAB 0 Refills Ferrous Gluconate (Ferrous Gluconate) 325 Mg Tab 325 MG PO TID for Nutritional Supplement, #30 TAB 0 Refills Glimepiride (Glimepiride) 1 Mg Tab 1 MG PO BID for Blood Sugar Management, #30 TAB 0 Refills Take with breakfast or first main meal Insulin Degludec Inj (Tresiba Flextouch Pen Inj) 300 unit/3 ML Pen 10 UNITS SQ HS for Blood Sugar Management, #15 ML 0 Refills Levalbuterol 15 GM Inh (Xopenex Hfa 15 GM Inh) 45 Mcg/Act Aer 45 MCG INH Q6HR, #1 INHALER 0 Refills Shake well before using. (1 puff = 45 mcg) Levothyroxine (Levothyroxine) 125 Mcg Tab 125 MCG PO DAILY for Thyroid, #30 TAB 0 Refills Lisinopril (Lisinopril) 5 Mg Tab 5 MG PO DAILY for Blood Pressure Management, #30 TAB 0 Refills Potassium Chloride ER (Potassium Chloride ER) 10 Meq Cap 10 MEQ PO DAILY for Electrolyte Replacement, #30 CAP 0 Refills Sennosides (Senna Lax) 8.6 Mg Tab 17.2 MG PO DAILY for Constipation, #30 TAB Sitagliptin (Januvia) 50 Mg Tab 50 MG PO BID for Blood Sugar Management, #60 TAB 0 Refills Discontinued Medications: Bumetanide (Bumetanide) 1 Mg Tab 1 MG PO BID@,18 for CHF and lower extremity edema, #20 TAB 0 Refills Anika Long MD Sep 06, 2017 18:31
== END 2017-09-06 19:12 | disposition home health service (06) | DRG 291 ==
LOC: NEPC 20:44 → NEDA 23:30 → HCIS 09-04 02:20 → OBSVTOIN 09-05 11:51
PROVIDERS: ADMIT Hospitalist; ATTEND Hospitalist
DX: I11.0 Hypertensive heart disease with heart failure (principal); J96.21 Acute and chronic respiratory failure with hypoxia; E11.65 Type 2 diabetes mellitus with hyperglycemia; D69.6 Thrombocytopenia, unspecified; I27.20 Pulmonary hypertension, unspecified; J44.1 Chronic obstructive pulmonary disease with (acute) exacerbation; Z99.81 Dependence on supplemental oxygen; I50.33 Acute on chronic diastolic (congestive) heart failure; E03.9 Hypothyroidism, unspecified; K21.9 Gastro-esophageal reflux disease without esophagitis; M19.90 Unspecified osteoarthritis, unspecified site; M81.0 Age-related osteoporosis without current pathological fracture; E78.5 Hyperlipidemia, unspecified; R07.9 Chest pain, unspecified; I48.2 Chronic atrial fibrillation; I25.10 Atherosclerotic heart disease of native coronary artery without angina pectoris; K74.60 Unspecified cirrhosis of liver; N28.9 Disorder of kidney and ureter, unspecified; B19.20 Unspecified viral hepatitis C without hepatic coma; Z79.01 Long term (current) use of anticoagulants; I25.2 Old myocardial infarction; Z95.0 Presence of cardiac pacemaker; Z95.5 Presence of coronary angioplasty implant and graft; Z79.84 Long term (current) use of oral hypoglycemic drugs
CPT/HCPCS: 71010; 80048; 80053; 81001; 82550; 82948; 83036; 83735; 83880; 84484; 85025; 85610; 85730; 93005; 93308; 94640; 94664; 96365; 96372; 96375; 96376; G0378; J1815; J1940; J2920; J7512; J7614; J7644

== ENCOUNTER 2017-11-20 09:49 | Emergency (ER) | payer MEDICARE, MEDICAID ==
[2017-11-20] VITALS (11 sets, daily range): BP systolic 122–138; BP diastolic 72–88; PULSE 103–145; RESP 16–20; TEMP 99.4–101.2; O2SAT 92–100
[~2017-11-20] VITALS: Ht 149.9 cm; Wt 50.0 kg
[~2017-11-20 09:49] MED LIST changes: -DIPR0.053 TOPICAL; -DOXY100C PO; +INSU1INJ14 SQ; +LISI-519 PO; +METO25TA3 PO; -METO50TA11 PO; +NOVORP2 SQ; +SENN1TAB27 PO; -SENN8.6T15 PO
[2017-11-20] MEDS ORDERED: SODIUM CHLORID 0.9% 500 ML INJ 500 ML IV ONE (10:15)
--- NOTE | 2017-11-20 10:17 | PD ---
HPI Chief Complaint: Cardiac Complaint Time Seen by Provider: 10:06 Travel History International Travel<30 days: No Contact w/Intl Traveler<30days: No Traveled to known affect area: No History of Present Illness HPI 82-year-old female patient with history of multiple medical issues, CAD status post stenting, pacer, A. fib, COPD, CHF, here because she has had 2 days history of cough, sore throat, white phlegm, fevers, not feeling well. She denies any chest pains, vomiting, abdominal pains, or other symptoms. She states that she feels that her heart is going fast. She has had a sick contact , friend would've flu and her daughter also states that she had flulike symptoms that has gone away now. Modifying Factors: None Associated Signs & Symptoms: Flulike symptoms, cough, sore throat, fevers, not feeling well, fast heart rate Risk Factors: Sick contacts, history of A. fib PFSH Past Medical History Arthritis: Yes (osteoporosis) Asthma: Yes Autoimmune Disease: No Blood Disorders: No Anxiety: No Depression: No Heart Rhythm Problems: Yes Cancer: No Cardiac Catheterization: Yes (10-01-09) Cardiovascular Problems: Yes ([place], PACEMAKER, AFIB RVR) High Cholesterol: No Chemotherapy: No Chest Pain: Yes Congestive Heart Failure: Yes Cirrhosis: Yes COPD: Yes Diabetes: Yes Diminished Hearing: No Endocrine: Yes Gastrointestinal Disorders: Yes GERD: Yes Genitourinary: No Headaches: No Hepatitis: Yes (hep c) Hiatal Hernia: No Heparin Induced Thrombocytopen: No Hypertension: Yes Immune Disorder: Yes (HEP C) Implanted Vascular Access Dvce: Yes Kidney Stones: No Musculoskeletal: Yes Neurologic: No Psychiatric: No Reproductive: No Respiratory: Yes Migraines: No Myocardial Infarction: Yes Radiation Therapy: No Renal Failure: No Sickle Cell Disease: No Sleep Apnea: No Thyroid Disease: Yes Ulcer: No Menopausal: Yes : 5 Para: 4 Miscarriage: 1 Past Surgical History Abdominal Surgery: No AICD: No Appendectomy: No Arteriovenous Shunt: No Body Medical Devices: PACEMAKER AND STENTS Cardiac Surgery: Yes (STENTS) Cholecystectomy: Yes Coronary Stent: Yes (x2) Ear Surgery: No Endocrine Surgery: No Eye Surgery: Yes (CATARAC SX) Genitourinary Surgery: Yes (GALLBLADDER) Gynecologic Surgery: Yes (HYSTERECTOMY) Hysterectomy: Yes Insulin Pump: No Joint Replacement: No Oral Surgery: No Pacemaker: Yes Thoracic Surgery: No Social History Alcohol Use: No Tobacco Use: No Substance Use: No Allergies-Medications (Allergen,Severity, Reaction): Coded Allergies: penicillin G (Verified Allergy, Severe, Anaphylaxis, 11/20/17) Quinolones (Verified Adverse Reaction, Severe, Confusion, 11/20/17) levofloxacin (Verified Adverse Reaction, Severe, Confusion, 11/20/17) verapamil (Verified Adverse Reaction, Severe, Nausea/Vomiting, 11/20/17) Iodinated Contrast- Oral and IV Dye (Verified Adverse Reaction, Unknown, 11/20/17) RENAL FAILURE Reported Meds & Prescriptions Reported Meds & Active Scripts Active Novolin R Inj (Insulin Human Regular) 1,000 Unit/10 Ml Vial 1 Unit SQ Q4HR 30 Days Januvia (Sitagliptin Phosphate) 50 Mg Tab 50 Mg PO BID Oxygen (O2) Device 2 Liter CHRISTIAN.CANULA CONTINUOUS Oxygen Concentrator Portable Gaseous 2 L/min via Nasal Canula Continuous For 99 months Senna Lax (Sennosides) 8.6 Mg Tab 17.2 Mg PO DAILY Reported Metoprolol Tartrate 50 Mg Tab 50 Mg PO BID Bumetanide 1 Mg Tab 1 Mg PO BID Spironolactone 25 Mg Tab 25 Mg PO DAILY Lisinopril 5 Mg Tab 5 Mg PO DAILY Tresiba Flextouch Pen Inj (Insulin Degludec Inj) 300 unit/3 ML Pen 10 Units SQ HS Diltiazem (Diltiazem HCl) 90 Mg Tab 180 Mg PO BID Xopenex Hfa 15 GM Inh (Levalbuterol 15 GM Inh) 45 Mcg/Act Aer 45 Mcg INH Q6HR Shake well before using. (1 puff = 45 mcg) Brovana Neb (Arformoterol Neb) 15 Mcg/2 Ml Vial 1 Nebule NEB BID Maintenance treatment of bronchoconstriction in COPD. Alendronate (Alendronate Sodium) 70 Mg Tab 70 Mg PO Q7D Proair Hfa 8.5 GM Inh (Albuterol Sulfate) 90 Mcg/Act Aer 1 Puff INH BID PRN 108 mcg/actuation Eliquis (Apixaban) 2.5 Mg Tab 2.5 Mg PO BID Zantac (Ranitidine HCl) 150 Mg Tab 150 Mg PO DAILY Levothyroxine (Levothyroxine Sodium) 125 Mcg Tab 125 Mcg PO DAILY Symbicort Inh (Budesonide/Formoterol Fumarate) 160-4.5 Mcg/Act Aero 2 Puff INH BID Review of Systems Except as stated in HPI: all other systems reviewed are Neg Physical Exam Narrative GENERAL: Well-developed elderly female patient currently in mild distress. Awake and oriented 3. Answering questions appropriately. SKIN: Focused skin assessment warm/dry. HEAD: Atraumatic. Normocephalic. EYES: Pupils equal and round. No scleral icterus. No injection or drainage. ENT: Mucosa pink and moist. Mild erythema with no exudates. No uvular edema. No uvular, palatal, or tonsillar deviation. Airway patent. NECK: Trachea midline. No JVD. Supple. CARDIOVASCULAR: Fast and irregularly irregular. No murmurs appreciated. RESPIRATORY: No accessory muscle use. Clear to auscultation. Breath sounds equal bilaterally. GASTROINTESTINAL: Abdomen soft, non-tender, nondistended. Hepatic and splenic margins not palpable. MUSCULOSKELETAL: No obvious deformities. No clubbing. No cyanosis. No edema. NEUROLOGICAL: Awake and alert. No obvious cranial nerve deficits. Motor grossly within normal limits. Normal speech. PSYCHIATRIC: Appropriate mood and affect; insight and judgment normal. Data Data Last Documented VS Vital Signs Date Time Temp Pulse Resp B/P (MAP) Pulse Ox O2 Delivery O2 Flow Rate FiO2 11/20/17 13:05 103 16 133/72 (92) 96 Room Air 11/20/17 12:03 2.00 11/20/17 11:56 99.4 Orders Orders Complete Blood Count With Diff (11/20/17 10:06) Comprehensive Metabolic Panel (11/20/17 10:06) Prothrombin Time / Inr (Pt) (11/20/17 10:06) Act Partial Throm Time (Ptt) (11/20/17 10:06) Lactic Acid Sepsis Protocol (11/20/17 10:06) Urinalysis - C+S If Indicated (11/20/17 10:06) Influenzae A/B Antigen (11/20/17 10:06) Blood Culture (11/20/17 10:06) Chest, Single Ap (11/20/17 10:06) Blood Glucose (11/20/17 10:06) Ecg Monitoring (11/20/17 10:06) Iv Access Insert/Monitor (11/20/17 10:06) Oximetry (11/20/17 10:06) Oxygen Administration (11/20/17 10:06) Sodium Chlorid 0.9% 500 Ml Inj (Ns 500 M (11/20/17 10:15) Acetaminophen (Tylenol) (11/20/17 10:30) Metoprolol Tartrate Inj (Lopressor Inj) (11/20/17 11:30) Urine Culture (11/20/17 11:25) Metoprolol Tartrate Inj (Lopressor Inj) (11/20/17 12:00) Electrocardiogram (11/20/17 09:57) Azithromycin (Zithromax) (11/20/17 13:15) Ed Discharge Order (11/20/17 13:12) Labs Laboratory Tests Test 11/20/17 10:10 11/20/17 10:15 11/20/17 11:25 White Blood Count 6.6 TH/MM3 Red Blood Count 3.96 MIL/MM3 Hemoglobin 11.6 GM/DL Hematocrit 33.7 % Mean Corpuscular Volume 85.2 FL Mean Corpuscular Hemoglobin 29.3 PG Mean Corpuscular Hemoglobin Concent 34.3 % Red Cell Distribution Width 15.4 % Platelet Count 78 TH/MM3 Mean Platelet Volume 10.0 FL Neutrophils (%) (Auto) 66.3 % Lymphocytes (%) (Auto) 13.3 % Monocytes (%) (Auto) 19.9 % Eosinophils (%) (Auto) 0.0 % Basophils (%) (Auto) 0.5 % Neutrophils # (Auto) 4.4 TH/MM3 Lymphocytes # (Auto) 0.9 TH/MM3 Monocytes # (Auto) 1.3 TH/MM3 Eosinophils # (Auto) 0.0 TH/MM3 Basophils # (Auto) 0.0 TH/MM3 CBC Comment AUTO DIFF Differential Comment AUTO DIFF CONFIRMED Platelet Estimate LOW Platelet Morphology Comment NORMAL Prothrombin Time 12.3 SEC Prothromb Time International Ratio 1.2 RATIO Activated Partial Thromboplast Time 27.8 SEC Blood Urea Nitrogen 35 MG/DL Creatinine 1.78 MG/DL Random Glucose 204 MG/DL Total Protein 9.8 GM/DL Albumin 3.6 GM/DL Calcium Level 9.0 MG/DL Alkaline Phosphatase 64 U/L Aspartate Amino Transf (AST/SGOT) 64 U/L Alanine Aminotransferase (ALT/SGPT) 65 U/L Total Bilirubin 0.9 MG/DL Sodium Level 131 MEQ/L Potassium Level 4.7 MEQ/L Chloride Level 97 MEQ/L Carbon Dioxide Level 27.6 MEQ/L Anion Gap 6 MEQ/L Estimat Glomerular Filtration Rate 27 ML/MIN Lactic Acid Level 1.3 mmol/L Urine Color YELLOW Urine Turbidity CLEAR Urine pH 7.0 Urine Specific [place] 1.014 Urine Protein 30 mg/dL Urine Glucose (UA) NEG mg/dL Urine Ketones NEG mg/dL Urine Occult Blood MOD Urine Nitrite NEG Urine Bilirubin NEG Urine Urobilinogen LESS THAN 2.0 MG/DL Urine Leukocyte Esterase TRACE Urine RBC 4 /hpf Urine WBC 1 /hpf Urine Squamous Epithelial Cells 2 /hpf Urine Bacteria OCC /hpf Urine Mucus FEW /lpf Microscopic Urinalysis Comment CATH-CULTURE IND MDM Medical Decision Making Medical Screen Exam Complete: Yes Emergency Medical Condition: Yes Medical Record Reviewed: Yes Interpretation(s) EKG shows A. fib with RVR at a rate of 118 bpm. No signs of acute ST-T changes. Laboratory Tests Test 11/20/17 10:10 11/20/17 10:15 11/20/17 11:25 Red Blood Count 3.96 MIL/MM3 (4.00-5.30) Hematocrit 33.7 % (35.0-46.0) Platelet Count 78 TH/MM3 (150-450) Monocytes (%) (Auto) 19.9 % (0.0-8.0) Lymphocytes # (Auto) 0.9 TH/MM3 (1.0-4.8) Monocytes # (Auto) 1.3 TH/MM3 (0-0.9) Platelet Estimate LOW (NORMAL) Prothrombin Time 12.3 SEC (9.8-11.6) Blood Urea Nitrogen 35 MG/DL (7-18) Creatinine 1.78 MG/DL (0.50-1.00) Random Glucose 204 MG/DL (74-106) Total Protein 9.8 GM/DL (6.4-8.2) Aspartate Amino Transf (AST/SGOT) 64 U/L (15-37) Alanine Aminotransferase (ALT/SGPT) 65 U/L (10-53) Sodium Level 131 MEQ/L (136-145) Chloride Level 97 MEQ/L (98-107) Estimat Glomerular Filtration Rate 27 ML/MIN (>89) Urine Protein 30 mg/dL (NEG-TRACE) Urine Occult Blood MOD (NEG) Urine Leukocyte Esterase TRACE (NEG) Urine RBC 4 /hpf (0-3) Urine Bacteria OCC /hpf (NONE) Urine Mucus FEW /lpf (OCC) Last 24 hours Impressions Chest X-Ray 11/20/17 1006 Signed Impressions: Service Date/Time: Monday, November 20, 2017 10:46 - CONCLUSION: Compensated cardiomegaly otherwise negative Demario Webb MD FACR Differential Diagnosis Influenza versus viral syndrome versus dehydration versus metabolic issues versus A. fib with RVR versus dysrhythmias Narrative Course Influenza test is negative. Chest x-ray is unremarkable. EKG does show A. fib which patient has history of, with RVR. Patient has not taken her metoprolol or her other medications this morning according to family. She otherwise has stable vital signs. Her lab work was fairly unremarkable and her urine is unremarkable. She is doing well in the ER, was given 500 cc of IV fluids. Considering her symptoms, I do suspect an underlying bronchitis. She was given metoprolol in the ER as well with improvement rate control, heart rate came down to the 100s. She is allergic to verapamil and apparently had been taken off of Cardizem according to family in the past. I will not give her that medication in this case. I have talked to the patient and family regarding her condition and she appears to be doing well in the ER, was ambulating without issues. She states that she is feeling better. I have offered to admit her as an observation versus released with bronchitis treatment and close follow-up to primary care doctor. Patient states that she does not want to stay and wants to be released and family is agreeable, state that they will keep an eye on her. They've appear to be fairly reliable and my plan would be to release her as per their wishes. She should return for any worsening in respiratory symptoms, any chest pains, dizziness, or new symptoms as needed. She took take her regular medications. She will also be given Zithromax as well to be filled today. The plan was discussed with her and they state understanding. Diagnosis Primary Impression: Atrial fibrillation with rapid ventricular response Additional Impression: Bronchitis Med/Other Pt SpecificInfo: Prescription(s) given Scripts Benzonatate (Tessalon Perles) 100 Mg Cap 100 MG PO TID Y for COUGH, #15 CAP 0 Refills Prov: Soontharothai,Rewadee MD 11/20/17 Azithromycin (Zithromax Z-Chris) 250 Mg Dspk 250 MG PO DIRECTED for Infection, #1 DSPK 0 Refills 500 MG (2 tabs) day 1, then 1 tab days 2-5. Prov: Ana Laura Ivy MD 11/20/17 Disposition: 01 DISCHARGE HOME Condition: Stable Ana Laura Ivy MD Nov 20, 2017 10:17
[2017-11-20] MEDS ORDERED: ACETAMINOPHEN 500 MG CPLT PO ONE (10:30)
[2017-11-20 10:44] LABS: AUTOMATED NEUTROPHIL # 4.4 TH/MM3 (1.8-7.7); BASOPHIL % 0.5 % (0.0-2.0); HEMATOCRIT 33.7 % (35.0-46.0); HEMOGLOBIN 11.6 GM/DL (11.6-15.3); LYMPH % 13.3 % (9.0-44.0); LYMPHOCYTE # 0.9 TH/MM3 (1.0-4.8); MEAN CELL VOLUME 85.2 FL (80.0-100.0); MEAN CORPUSCULAR HEMOGLOBIN 29.3 PG (27.0-34.0); MEAN CORPUSCULAR HGB CONC 34.3 % (32.0-36.0); MONO % 19.9 % (0.0-8.0); MONOCYTE # 1.3 TH/MM3 (0-0.9); NEUT % 66.3 % (16.0-70.0); PLATELET COUNT 78 TH/MM3 (150-450); RED BLOOD COUNT 3.96 MIL/MM3 (4.00-5.30); RED CELL DISTRIBUTION WIDTH 15.4 % (11.6-17.2); WHITE BLOOD COUNT 6.6 TH/MM3 (4.0-11.0)
[2017-11-20 10:51] LABS: INTERNATIONAL NORMALIZED RATIO 1.2 RATIO; PROTHROMBIN TIME - PATIENT 12.3 SEC (9.8-11.6)
[2017-11-20] MEDS ORDERED: BUME1TAB PO (10:55)
[2017-11-20] MEDS ORDERED: SPIR25TA PO (10:55)
[2017-11-20] MEDS ORDERED: METO50TA PO (10:55)
[2017-11-20 10:59] LABS: ALT (GPT) 65 U/L (10-53)
[2017-11-20 11:00] LABS: ALBUMIN 3.6 GM/DL (3.4-5.0); AST (GOT) 64 U/L (15-37); BICARBONATE 27.6 MEQ/L (21.0-32.0); BLOOD UREA NITROGEN 35 MG/DL (7-18); CHLORIDE 97 MEQ/L (98-107); CREATININE 1.78 MG/DL (0.50-1.00); GLOMERULAR FILTRATION RATE 27 ML/MIN (>89); GLUCOSE,RANDOM 204 MG/DL (74-106); SODIUM (NA) 131 MEQ/L (136-145)
[2017-11-20 11:01] LABS: ALKALINE PHOSPHATASE 64 U/L (45-117); TOTAL BILIRUBIN ADULT 0.9 MG/DL (0.2-1.0); TOTAL PROTEIN 9.8 GM/DL (6.4-8.2)
--- NOTE | 2017-11-20 11:10 | RADRPT ---
EXAM DATE/TIME: 11/20/2017 10:46 [facility] COMPARISON: CHEST SINGLE AP, September 03, 2017, 21:53. INDICATIONS : Fever. MEDICAL HISTORY : Gastroesophageal reflux disease. Congestive heart failure. Myocardial infarction. CVA. Hypertension. Hepatitis C. SURGICAL HISTORY : Cholecystectomy. Hysterectomy. Pacemaker. Cardiac stent. ENCOUNTER: Initial ACUITY: 1 day PAIN SCORE: 0/10 LOCATION: Bilateral chest FINDINGS: Pacemaker on the left. The lungs are clear. The heart is minimally enlarged. The pulmonary vascularity is normal. There is n o evidence for infiltrate or failure. The portion of the bony skeleton visualized is unremarkable. CONCLUSION: Compensated cardiomegaly otherwise negative Demario Webb MD FACR on November 20, 2017 at 11:08 Board Certified Radiologist. This report was verified electronically.
[2017-11-20] MEDS ORDERED: METOPROLOL TARTRATE 5 MG/5 ML VIAL IV PUSH ONE ×2 (11:30→12:00)
[2017-11-20 11:47] LABS: BACTERIA, URINE OCC /hpf; BILIRUBIN, URINE NEG (NEG); BLOOD, URINE MOD (NEG); GLUCOSE,URINE NEG (NEG); KETONE, URINE NEG (NEG); MUCUS URINE FEW /lpf (OCC); NITRITE,URINE NEG (NEG); SQUAMOUS EPITHELIAL CELL URINE 2 /hpf (0-5); URINE COLOR YELLOW (YELLW/STRAW); URINE LEUKOCYTE ESTERASE TRACE (NEG)
[2017-11-20] MEDS ORDERED: AZITHROMYCIN 250 MG TAB PO ONE (13:15)
[2017-11-20] MEDS ORDERED: ZITHTAB PO (13:19)
[2017-11-20] MEDS ORDERED: BENZ100 PO (13:19)
--- NOTE | 2017-11-20 18:14 | EKG ---
Date Performed: 11/20/2017 Time Performed: 09:57:53 PTAGE: 82 years EKG: ATRIAL FIBRILLATION WITH RAPID VENTRICULAR RESPONSE MODERATE ST-T ABNORMALITY ABNORMAL ECG Compared to prior tracing no significant change DOCTOR: Solis Stone Interpretating Date/Time 11/20/2017 18:12:47
== END 2017-11-20 13:47 | disposition home or self-care (01) ==
LOC: NEPC 09:49
DX: I48.91 Unspecified atrial fibrillation (principal); J40 Bronchitis, not specified as acute or chronic; R07.0 Pain in throat; R50.9 Fever, unspecified; R94.31 Abnormal electrocardiogram [ECG] [EKG]; M81.0 Age-related osteoporosis without current pathological fracture; M19.90 Unspecified osteoarthritis, unspecified site; I50.9 Heart failure, unspecified; K74.60 Unspecified cirrhosis of liver; J44.9 Chronic obstructive pulmonary disease, unspecified; E11.9 Type 2 diabetes mellitus without complications; I10 Essential (primary) hypertension; E07.9 Disorder of thyroid, unspecified; K21.9 Gastro-esophageal reflux disease without esophagitis; I25.2 Old myocardial infarction; Z79.4 Long term (current) use of insulin; Z86.19 Personal history of other infectious and parasitic diseases; Z86.79 Personal history of other diseases of the circulatory system
CPT/HCPCS: 71010; 80053; 81001; 83605; 85025; 85610; 85730; 87040; 87086; 87804; 93005; 96361; 96374; 99285; J7040

== ENCOUNTER 2017-11-20 17:57 | Inpatient (IN) | payer MEDICARE, MEDICAID ==
[~2017-11-20] VITALS: Ht 149.9 cm; Wt 49.6 kg
[~2017-11-20 17:57] MED LIST changes: +BENZ100 PO; +METO50TA PO; +SPIR25TA PO; +ZITHTAB PO
[2017-11-20 18:07] VITALS: BP 157/76; PULSE 108; RESP 25; TEMP 103.1; O2SAT 98
[2017-11-20 18:15] VITALS: BP 157/76; PULSE 105; RESP 25; TEMP 103.1; O2SAT 99
[2017-11-20] MEDS ORDERED: ACETAMINOPHEN 325 MG TAB PO ONE (18:30)
[2017-11-20] MEDS ORDERED: cefTRIAXone INJ 1,000 MG in SODIUM CHLORIDE 0.9% INJ 100 ML IV ONE (18:45)
[2017-11-20] MEDS ORDERED: DILTIAZEM HCL 25 MG/5 ML VIAL IV ONE (18:45)
[2017-11-20 18:46] VITALS: O2SAT 99
[2017-11-20] MEDS ORDERED: SODIUM CHLORID 0.9% 500 ML INJ 500 ML IV ONE (19:15)
--- NOTE | 2017-11-20 19:15 | PD ---
HPI Chief Complaint: Cardiac Complaint Time Seen by Provider: 18:16 Travel History International Travel<30 days: No Contact w/Intl Traveler<30days: No Traveled to known affect area: No History of Present Illness HPI 82-year-old female that presents to the ED for evaluation of tachycardia as well as altered mental status and shortness of breath. Patient was seen here earlier this morning for cold-like symptoms. She was evaluated and off for admission but she declined stating that she wanted to go home. She was discharged home with prescription for azithromycin and Tessalon Perles. She took one dose before leaving but has not taken anything since. She went to bed and she was doing fine but about less than an hour before coming she woke up and she seemed to be altered. Per family she seemed like she was dazed and they noticed that her heart was elevated and her O2 was low. She is always on oxygen at home. She has a history of COPD, CAD, A. fib as well as CHF. She states compliance with her medications. Per family they were concerned more about the episode where she was acting abnormal. Patient herself has no complaints and states that she wants to go home. Patient states that she has some cold-like symptoms. Per patient she does state to me that she felt "cold" and not anymore. She was not given anything for her fever since been discharged from the hospital. She does have multiple allergies to different medications. She denies any pain. No diarrhea. No bowel movement or urinary issues. No pain of any kind. Per family she is back to normal mentally. Most of the history is obtained from family as patient is a poor historian. PFSH Past Medical History Hx Anticoagulant Therapy: Yes (ELIQUIS) Arthritis: Yes (osteoporosis) Asthma: Yes Atrial Fibrillation: Yes Autoimmune Disease: No Blood Disorders: No Anxiety: No Depression: No Heart Rhythm Problems: Yes Cancer: No Cardiac Catheterization: Yes (10-01-09) Cardiovascular Problems: Yes High Cholesterol: No Chemotherapy: No Chest Pain: Yes Congestive Heart Failure: Yes Cirrhosis: Yes COPD: Yes Diabetes: Yes Patient Takes Glucophage: No Diminished Hearing: No Endocrine: Yes Gastrointestinal Disorders: Yes GERD: Yes Genitourinary: No Headaches: No Hepatitis: Yes (C) Hiatal Hernia: No Heparin Induced Thrombocytopen: No Hypertension: Yes Immune Disorder: Yes (HEP C) Implanted Vascular Access Dvce: Yes Kidney Stones: No Musculoskeletal: Yes Neurologic: No Psychiatric: No Reproductive: No Respiratory: Yes Migraines: No Myocardial Infarction: Yes (AUG 2014) Radiation Therapy: No Renal Failure: Yes Sickle Cell Disease: No Sleep Apnea: No Thyroid Disease: Yes Ulcer: No Tetanus Vaccination: Unknown Influenza Vaccination: No ?: Not Menopausal: Yes : 5 Para: 4 Miscarriage: 1 Past Surgical History Abdominal Surgery: No AICD: No Appendectomy: No Arteriovenous Shunt: No Body Medical Devices: PACEMAKER AND STENTS Cardiac Surgery: Yes (PACEMAKER 2012) Cholecystectomy: Yes Coronary Stent: Yes (x2 2008) Ear Surgery: No Endocrine Surgery: No Eye Surgery: Yes (CATARACT) Genitourinary Surgery: Yes (GALLBLADDER) Gynecologic Surgery: Yes (HYSTERECTOMY) Hysterectomy: Yes Insulin Pump: No Joint Replacement: No Oral Surgery: No Pacemaker: Yes Thoracic Surgery: No Other Surgery: Yes (STENTS PLACED) Social History Alcohol Use: No Tobacco Use: No Substance Use: No Allergies-Medications (Allergen,Severity, Reaction): Coded Allergies: penicillin G (Verified Allergy, Severe, Anaphylaxis, 11/20/17) Quinolones (Verified Adverse Reaction, Severe, Confusion, 11/20/17) levofloxacin (Verified Adverse Reaction, Severe, Confusion, 11/20/17) verapamil (Verified Adverse Reaction, Severe, Nausea/Vomiting, 11/20/17) Iodinated Contrast- Oral and IV Dye (Verified Adverse Reaction, Unknown, 11/20/17) RENAL FAILURE Reported Meds & Prescriptions Reported Meds & Active Scripts Active Tessalon Perles (Benzonatate) 100 Mg Cap 100 Mg PO TID PRN Zithromax Z-Chris (Azithromycin) 250 Mg Dspk 250 Mg PO DIRECTED 500 MG (2 tabs) day 1, then 1 tab days 2-5. Novolin R Inj (Insulin Human Regular) 1,000 Unit/10 Ml Vial 1 Unit SQ Q4HR 30 Days Januvia (Sitagliptin Phosphate) 50 Mg Tab 50 Mg PO BID Oxygen (O2) Device 2 Liter CHRISTIAN.CANULA CONTINUOUS Oxygen Concentrator Portable Gaseous 2 L/min via Nasal Canula Continuous For 99 months Senna Lax (Sennosides) 8.6 Mg Tab 17.2 Mg PO DAILY Reported Metoprolol Tartrate 50 Mg Tab 50 Mg PO BID Bumetanide 1 Mg Tab 1 Mg PO BID Spironolactone 25 Mg Tab 25 Mg PO DAILY Lisinopril 5 Mg Tab 5 Mg PO DAILY Tresiba Flextouch Pen Inj (Insulin Degludec Inj) 300 unit/3 ML Pen 10 Units SQ HS Diltiazem (Diltiazem HCl) 90 Mg Tab 180 Mg PO BID Xopenex Hfa 15 GM Inh (Levalbuterol 15 GM Inh) 45 Mcg/Act Aer 45 Mcg INH Q6HR Shake well before using. (1 puff = 45 mcg) Brovana Neb (Arformoterol Neb) 15 Mcg/2 Ml Vial 1 Nebule NEB BID Maintenance treatment of bronchoconstriction in COPD. Alendronate (Alendronate Sodium) 70 Mg Tab 70 Mg PO Q7D Proair Hfa 8.5 GM Inh (Albuterol Sulfate) 90 Mcg/Act Aer 1 Puff INH BID PRN 108 mcg/actuation Eliquis (Apixaban) 2.5 Mg Tab 2.5 Mg PO BID Zantac (Ranitidine HCl) 150 Mg Tab 150 Mg PO DAILY Levothyroxine (Levothyroxine Sodium) 125 Mcg Tab 125 Mcg PO DAILY Symbicort Inh (Budesonide/Formoterol Fumarate) 160-4.5 Mcg/Act Aero 2 Puff INH BID Review of Systems ROS Limitations: Poor Historian Except as stated in HPI: all other systems reviewed are Neg Physical Exam Exam Limitations: Poor Historian Narrative GENERAL: SKIN: Warm and dry. HEAD: Atraumatic. Normocephalic. EYES: Pupils equal and round 2 mm reactive to light and accommodation. No scleral icterus. No injection or drainage. ENT: No nasal bleeding or discharge. Mucous membranes pink and moist. Tongue is midline. No uvula deviation. NECK: Trachea midline. No JVD. CARDIOVASCULAR: Irregular rate and rhythm. No murmurs, S3, S4. RESPIRATORY: No accessory muscle use. Clear to auscultation. Breath sounds equal bilaterally. GASTROINTESTINAL: Abdomen soft, non-tender, nondistended. Hepatic and splenic margins not palpable. MUSCULOSKELETAL: Extremities without clubbing, cyanosis, or edema. No obvious deformities. Full range of motion of the upper and lower extremities bilaterally. 2+ pulses bilaterally. NEUROLOGICAL: Awake and alert. No obvious cranial nerve deficits. Motor grossly within normal limits. Five out of 5 muscle strength in the arms and legs. Normal speech. PSYCHIATRIC: Appropriate mood and affect; insight and judgment normal. Data Data Last Documented VS Vital Signs Date Time Temp Pulse Resp B/P (MAP) Pulse Ox O2 Delivery O2 Flow Rate FiO2 11/20/17 18:46 99 Nasal Cannula 3.00 11/20/17 18:15 105 25 11/20/17 18:15 103.1 Orders Orders Complete Blood Count With Diff (11/20/17 18:27) Comprehensive Metabolic Panel (11/20/17 18:27) Lactic Acid (11/20/17 18:27) Prothrombin Time / Inr (Pt) (11/20/17 18:27) Act Partial Throm Time (Ptt) (11/20/17 18:27) Urinalysis - C+S If Indicated (11/20/17 18:27) Iv Access Insert/Monitor (11/20/17 18:27) Ecg Monitoring (11/20/17 18:27) Oximetry (11/20/17 18:27) Electrocardiogram (11/20/17 18:27) B-Type Natriuretic Peptide (11/20/17 18:27) Acetaminophen (Tylenol) (11/20/17 18:30) Ceftriaxone Inj (Rocephin Inj) (11/20/17 18:45) Diltiazem Inj (Cardizem Inj) (11/20/17 18:45) Sodium Chlorid 0.9% 500 Ml Inj (Ns 500 M (11/20/17 19:15) Ct Brain W/O Iv Contrast(Rout) (11/20/17 ) Influenzae A/B Antigen (11/20/17 19:45) Admit Order (Ed Use Only) (11/20/17 20:52) Labs Laboratory Tests Test 11/20/17 18:50 White Blood Count 7.3 TH/MM3 Red Blood Count 3.81 MIL/MM3 Hemoglobin 11.2 GM/DL Hematocrit 32.3 % Mean Corpuscular Volume 84.8 FL Mean Corpuscular Hemoglobin 29.4 PG Mean Corpuscular Hemoglobin Concent 34.7 % Red Cell Distribution Width 15.6 % Platelet Count 79 TH/MM3 Mean Platelet Volume 9.7 FL Neutrophils (%) (Auto) 77.1 % Lymphocytes (%) (Auto) 7.7 % Monocytes (%) (Auto) 14.9 % Eosinophils (%) (Auto) 0.0 % Basophils (%) (Auto) 0.3 % Neutrophils # (Auto) 5.6 TH/MM3 Lymphocytes # (Auto) 0.6 TH/MM3 Monocytes # (Auto) 1.1 TH/MM3 Eosinophils # (Auto) 0.0 TH/MM3 Basophils # (Auto) 0.0 TH/MM3 CBC Comment AUTO DIFF Differential Total Cells Counted 100 Neutrophils % (Manual) 81 % Band Neutrophils % 6 % Lymphocytes % 4 % Monocytes % 8 % Neutrophils # (Manual) 6.4 TH/MM3 Myelocytes 1 % Differential Comment FINAL DIFF MANUAL Platelet Estimate LOW Platelet Morphology Comment NORMAL Ovalocytes 1+ Prothrombin Time 13.4 SEC Prothromb Time International Ratio 1.3 RATIO Activated Partial Thromboplast Time 28.0 SEC Blood Urea Nitrogen 31 MG/DL Creatinine 1.50 MG/DL Random Glucose 174 MG/DL Total Protein 8.8 GM/DL Albumin 3.1 GM/DL Calcium Level 8.0 MG/DL Alkaline Phosphatase 51 U/L Aspartate Amino Transf (AST/SGOT) 64 U/L Alanine Aminotransferase (ALT/SGPT) 56 U/L Total Bilirubin 0.7 MG/DL Sodium Level 132 MEQ/L Potassium Level 4.7 MEQ/L Chloride Level 99 MEQ/L Carbon Dioxide Level 26.9 MEQ/L Anion Gap 6 MEQ/L Estimat Glomerular Filtration Rate 33 ML/MIN Lactic Acid Level 1.7 mmol/L B-Type Natriuretic Peptide 1507 PG/ML MDM Medical Decision Making Medical Screen Exam Complete: Yes Emergency Medical Condition: Yes Medical Record Reviewed: Yes Interpretation(s) CBC & BMP Diagram 11/20/17 18:50 Total Protein 8.8 #H, Albumin 3.1 L, Calcium Level 8.0 #L, Alkaline Phosphatase 51, Aspartate Amino Transf (AST/SGOT) 64 H, Alanine Aminotransferase (ALT/SGPT) 56 H, Total Bilirubin 0.[address] 11/20/17 0000 Signed Impressions: Service Date/Time: Monday, November 20, 2017 19:18 - CONCLUSION: No acute intracranial findings. Aram Scott MD EKG shows a-fib on RVR with HR of 102. No sign of ST elevation read by me and attending. lactic acid WNL. Differential Diagnosis atrial fibrillation RVR versus CHF versus altered mental status versus influenza versus sepsis versus COPD exacerbation Narrative Course 82-year-old female that presents to the ED for evaluation of altered mental status, shortness of breath and elevated heart rate. Patient was properly examined and was found to have signs and symptoms consistent appears to be A. fib and RVR as well as possible hypoxic altered mental status. Unclear at this time. Labs and imaging were ordered. Patient had an x-ray as well as full test and labs which were for the most part unremarkable other than for slight kidney insufficiency which appears to be chronic for her. She was found to be in A. fib and RVR and she was offered admission but she declined admission at the time and was diagnosed with bronchitis and sent home with antibiotics. This is the patient's second presentation here and she does appear to be in A. fib and RVR. She was given Cardizem by ambulance and was given Cardizem here again by me with improvement of symptoms. At this time I recommend likely admission pending labs. My attending Dr. Caputo agrees with plan. Patient agrees with admission. Case discussed with residents who agree to admission. Diagnosis Primary Impression: Atrial fibrillation with rapid ventricular response Additional Impression: Sepsis Qualified Codes: A41.9 - Sepsis, unspecified organism Admitting Information Admitting Physician Requests: Admit Abel Armstrong Nov 20, 2017 19:15
[2017-11-20 19:42] LABS: AUTOMATED NEUTROPHIL # 5.6 TH/MM3 (1.8-7.7); BASOPHIL % 0.3 % (0.0-2.0); HEMATOCRIT 32.3 % (35.0-46.0); LYMPH % 7.7 % (9.0-44.0); LYMPHOCYTE # 0.6 TH/MM3 (1.0-4.8); MEAN CELL VOLUME 84.8 FL (80.0-100.0); MEAN CORPUSCULAR HEMOGLOBIN 29.4 PG (27.0-34.0); MEAN CORPUSCULAR HGB CONC 34.7 % (32.0-36.0); MONO % 14.9 % (0.0-8.0); NEUT % 77.1 % (16.0-70.0); PLATELET COUNT 79 TH/MM3 (150-450); RED BLOOD COUNT 3.81 MIL/MM3 (4.00-5.30); RED CELL DISTRIBUTION WIDTH 15.6 % (11.6-17.2); WHITE BLOOD COUNT 7.3 TH/MM3 (4.0-11.0)
[2017-11-20 19:43] LABS: HEMO FLAGS AUTO DIFF
[2017-11-20 19:52] LABS: ALKALINE PHOSPHATASE 51 U/L (45-117); ALT (GPT) 56 U/L (10-53); ANION GAP 6 MEQ/L (5-15); AST (GOT) 64 U/L (15-37); BICARBONATE 26.9 MEQ/L (21.0-32.0); BLOOD UREA NITROGEN 31 MG/DL (7-18); CHLORIDE 99 MEQ/L (98-107); GLOMERULAR FILTRATION RATE 33 ML/MIN (>89); POTASSIUM 4.7 MEQ/L (3.5-5.1); SODIUM (NA) 132 MEQ/L (136-145); TOTAL BILIRUBIN ADULT 0.7 MG/DL (0.2-1.0)
--- NOTE | 2017-11-20 19:52 | RADRPT ---
EXAM DATE/TIME: 11/20/2017 19:18 [facility] COMPARISON: No previous studies available for comparison. INDICATIONS : Altered mental status. RADIATION DOSE: 56.35 CTDIvol (mGy) MEDICAL HISTORY : Diabetes mellitus type 2. Renal failure, chronic. Congestive heart failure. SURGICAL HISTORY : Hysterectomy. Cholecystectomy. ENCOUNTER: Initial ACUITY: 1 day PAIN SCALE: 0/10 LOCATION: cranial TECHNIQUE: Multiple contiguous axial images were obtained of the head. Using automated exposure control and adj ustment of the mA and/or kV according to patient size, radiation dose was kept as low as reasonably a chievable to obtain optimal diagnostic quality images. DICOM format image data is available electro nically for review and comparison. FINDINGS: CEREBRUM: The ventricles are normal for age. No evidence of midline shift, mass lesion, hemorrhage or acute in farction. No extra-axial fluid collections are seen. Chronic small vessel white matter ischemic carranza ge. Old left thalamic lacunar infarct. POSTERIOR FOSSA: The cerebellum and brainstem are intact. The 4th ventricle is midline. The cerebellopontine angle i s unremarkable. EXTRACRANIAL: The visualized portion of the orbits is intact. SKULL: The calvaria is intact. No evidence of skull fracture. CONCLUSION: No acute intracranial findings. Aram Scott MD on November 20, 2017 at 19:45 Board Certified Radiologist. This report was verified electronically.
[2017-11-20 19:58] LABS: INTERNATIONAL NORMALIZED RATIO 1.3 RATIO; PROTHROMBIN TIME - PATIENT 13.4 SEC (9.8-11.6)
[2017-11-20 20:19] LABS: BANDS 6 % (0-6); MYELOCYTES 1 % (0-0); NEUTROPHIL # MANUAL DIFF 6.4 TH/MM3 (1.8-7.7); POLYS (SEG NEUTROPHILS) 81 % (16-70); WBC DIFF SAMPLE 100
[2017-11-20 20:20] LABS: OVALOCYTES 1+ (NORMAL); PLATELET ESTIMATE SMEAR LOW (NORMAL); PLATELET MORPHOLOGY NORMAL (NORMAL); SCAN/DIFF FINAL DIFF MANUAL
--- NOTE | 2017-11-20 21:52 | PD ---
Data Data Last Documented VS Vital Signs Date Time Temp Pulse Resp B/P (MAP) Pulse Ox O2 Delivery O2 Flow Rate FiO2 11/20/17 18:46 99 Nasal Cannula 3.00 11/20/17 18:15 105 25 11/20/17 18:15 103.1 Orders Orders Complete Blood Count With Diff (11/20/17 18:27) Comprehensive Metabolic Panel (11/20/17 18:27) Lactic Acid (11/20/17 18:27) Prothrombin Time / Inr (Pt) (11/20/17 18:27) Act Partial Throm Time (Ptt) (11/20/17 18:27) Urinalysis - C+S If Indicated (11/20/17 18:27) Iv Access Insert/Monitor (11/20/17 18:27) Ecg Monitoring (11/20/17 18:27) Oximetry (11/20/17 18:27) Electrocardiogram (11/20/17 18:27) B-Type Natriuretic Peptide (11/20/17 18:27) Acetaminophen (Tylenol) (11/20/17 18:30) Ceftriaxone Inj (Rocephin Inj) (11/20/17 18:45) Diltiazem Inj (Cardizem Inj) (11/20/17 18:45) Sodium Chlorid 0.9% 500 Ml Inj (Ns 500 M (11/20/17 19:15) Ct Brain W/O Iv Contrast(Rout) (11/20/17 ) Influenzae A/B Antigen (11/20/17 19:45) Admit Order (Ed Use Only) (11/20/17 20:52) Labs Laboratory Tests Test 11/20/17 18:50 White Blood Count 7.3 TH/MM3 Red Blood Count 3.81 MIL/MM3 Hemoglobin 11.2 GM/DL Hematocrit 32.3 % Mean Corpuscular Volume 84.8 FL Mean Corpuscular Hemoglobin 29.4 PG Mean Corpuscular Hemoglobin Concent 34.7 % Red Cell Distribution Width 15.6 % Platelet Count 79 TH/MM3 Mean Platelet Volume 9.7 FL Neutrophils (%) (Auto) 77.1 % Lymphocytes (%) (Auto) 7.7 % Monocytes (%) (Auto) 14.9 % Eosinophils (%) (Auto) 0.0 % Basophils (%) (Auto) 0.3 % Neutrophils # (Auto) 5.6 TH/MM3 Lymphocytes # (Auto) 0.6 TH/MM3 Monocytes # (Auto) 1.1 TH/MM3 Eosinophils # (Auto) 0.0 TH/MM3 Basophils # (Auto) 0.0 TH/MM3 CBC Comment AUTO DIFF Differential Total Cells Counted 100 Neutrophils % (Manual) 81 % Band Neutrophils % 6 % Lymphocytes % 4 % Monocytes % 8 % Neutrophils # (Manual) 6.4 TH/MM3 Myelocytes 1 % Differential Comment FINAL DIFF MANUAL Platelet Estimate LOW Platelet Morphology Comment NORMAL Ovalocytes 1+ Prothrombin Time 13.4 SEC Prothromb Time International Ratio 1.3 RATIO Activated Partial Thromboplast Time 28.0 SEC Blood Urea Nitrogen 31 MG/DL Creatinine 1.50 MG/DL Random Glucose 174 MG/DL Total Protein 8.8 GM/DL Albumin 3.1 GM/DL Calcium Level 8.0 MG/DL Alkaline Phosphatase 51 U/L Aspartate Amino Transf (AST/SGOT) 64 U/L Alanine Aminotransferase (ALT/SGPT) 56 U/L Total Bilirubin 0.7 MG/DL Sodium Level 132 MEQ/L Potassium Level 4.7 MEQ/L Chloride Level 99 MEQ/L Carbon Dioxide Level 26.9 MEQ/L Anion Gap 6 MEQ/L Estimat Glomerular Filtration Rate 33 ML/MIN Lactic Acid Level 1.7 mmol/L B-Type Natriuretic Peptide 1507 PG/ML MDM Supervised Visit with SULY: Yes Narrative Course The history, exam, and medical decision-making in the associated mid-level provider note were completed with my assistance. I reviewed and agree with the findings presented. I attest that I had a [id number] encounter with the patient on the same day, and personally performed and documented my assessment and findings in the medical record. *My assessment and Findings: 82 year-old woman flulike symptoms, fever, elevated heart rate, seen earlier today, now worsening symptoms. Looks overall well. Heart rate nasal bit elevated with her A. fib. Flu test negative 2. Recommend empiric anabiotic's , IV fluids, continue home medications. Will admit for further evaluation and treatment. Diagnosis Primary Impression: Atrial fibrillation with rapid ventricular response Additional Impression: Sepsis Qualified Codes: A41.9 - Sepsis, unspecified organism Valentin Caputo MD Nov 20, 2017 21:52
--- NOTE | 2017-11-20 22:06 | HHI.HP ---
HPI Service Family Medicine Primary Care Physician BELINDA Lopez Admission Diagnosis A. fib on RVR, acute bronchitis, sepsis Diagnoses: International Travel<30 Days: No Contact w/Intl Traveler<30days: No Known Affected Area: No History of Present Illness 82 yr old F w/ PMHx of T2DM, CHF (Echo 09/06/17 w/ EF 60-65% ) CAD s/p AICD placement, Hep C, HTN, COPD on home 2L O2, and Afib on Eliquis, presents to the ED with tachycardia, AMS, and SOB. Patient's preferred language is Beninese. History provided by Dr. Main and ED physician. Patient is a poor historian. Family not present, called and left a message. Unable to contact family at this time for more information. Patient initially presented to the ED earlier this morning with cold-like symptoms. She was evaluated and offered to be admitted. Patient declined and preferred to be home for the holidays. She was discharged with prescription for azithromycin and Tessalon Perles. Patient returned to the ER later this evening via ambulance due to an episode of altered mental status. Family noticed that her heart rate was elevated to 140s, O2 stats in low 80s, and she appeared dazed. Per ED note, family states that she is back to her normal mental baseline. Upon seeing her in the ED, patient is oriented to only person and place. She is able to state her name and where she is at. She is not oriented to time. She denies CP, SOB, abdominal pain, runny nose, cough, throat pain, and N/V. (Toña Okeefe MD R1) Review of Systems ROS Limitations: Poor Historian Constitutional: COMPLAINS OF: Fever Eyes: DENIES: Blurred vision Ears, nose, mouth, throat: DENIES: Throat pain, Running Nose Respiratory: DENIES: Cough, Shortness of breath Cardiovascular: DENIES: Chest pain, Lower Extremity Edema Gastrointestinal: DENIES: Abdominal pain, Nausea, Vomiting Genitourinary: DENIES: Urinary frequency, Dysuria Musculoskeletal: DENIES: Muscle aches Neurologic: DENIES: Headache, Localized weakness (Toña Okeefe MD R1) Past Family Social History Past Medical History Per chart review from previous admissions: Type 2 diabetes mellitus Congestive heart failure Coronary artery disease Status post MA with AICD placement in 2013 Hypertension Hypothyroidism COPD on home 2L O2 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) Afib on Eliquis Past Surgical History Pacemaker Cholecystectomy Hysterectomy Cataract Surgery (Toña Okeefe MD R1) Allergies: Coded Allergies: penicillin G (Verified Allergy, Severe, Anaphylaxis, 11/20/17) Quinolones (Verified Adverse Reaction, Severe, Confusion, 11/20/17) levofloxacin (Verified Adverse Reaction, Severe, Confusion, 11/20/17) verapamil (Verified Adverse Reaction, Severe, Nausea/Vomiting, 11/20/17) Iodinated Contrast- Oral and IV Dye (Verified Adverse Reaction, Unknown, 11/20/17) RENAL FAILURE Active Ordered Medications Reported Meds & Active Scripts Active Tessalon Perles (Benzonatate) 100 Mg Cap 100 Mg PO TID PRN Zithromax Z-Chris (Azithromycin) 250 Mg Dspk 250 Mg PO DIRECTED 500 MG (2 tabs) day 1, then 1 tab days 2-5. Novolin R Inj (Insulin Human Regular) 1,000 Unit/10 Ml Vial 1 Unit SQ Q4HR 30 Days Januvia (Sitagliptin Phosphate) 50 Mg Tab 50 Mg PO BID Oxygen (O2) Device 2 Liter CHRISTIAN.CANULA CONTINUOUS Oxygen Concentrator Portable Gaseous 2 L/min via Nasal Canula Continuous For 99 months Senna Lax (Sennosides) 8.6 Mg Tab 17.2 Mg PO DAILY Reported Metoprolol Tartrate 50 Mg Tab 50 Mg PO BID Bumetanide 1 Mg Tab 1 Mg PO BID Spironolactone 25 Mg Tab 25 Mg PO DAILY Lisinopril 5 Mg Tab 5 Mg PO DAILY Tresiba Flextouch Pen Inj (Insulin Degludec Inj) 300 unit/3 ML Pen 10 Units SQ HS Diltiazem (Diltiazem HCl) 90 Mg Tab 180 Mg PO BID Xopenex Hfa 15 GM Inh (Levalbuterol 15 GM Inh) 45 Mcg/Act Aer 45 Mcg INH Q6HR Shake well before using. (1 puff = 45 mcg) Brovana Neb (Arformoterol Neb) 15 Mcg/2 Ml Vial 1 Nebule NEB BID Maintenance treatment of bronchoconstriction in COPD. Alendronate (Alendronate Sodium) 70 Mg Tab 70 Mg PO Q7D Proair Hfa 8.5 GM Inh (Albuterol Sulfate) 90 Mcg/Act Aer 1 Puff INH BID PRN 108 mcg/actuation Eliquis (Apixaban) 2.5 Mg Tab 2.5 Mg PO BID Zantac (Ranitidine HCl) 150 Mg Tab 150 Mg PO DAILY Levothyroxine (Levothyroxine Sodium) 125 Mcg Tab 125 Mcg PO DAILY Symbicort Inh (Budesonide/Formoterol Fumarate) 160-4.5 Mcg/Act Aero 2 Puff INH BID Family History Father of cirrhosis, cause of cirrhosis unknown. Mother's when patient was a child, cause unknown. Social History Lives with daughter. Never smoker. No alcohol. Denies illicit drugs. (Toña Okeefe MD R1) Physical Exam Vital Signs Vital Signs Date Time Temp Pulse Resp B/P (MAP) Pulse Ox O2 Delivery O2 Flow Rate FiO2 11/20/17 18:46 99 Nasal Cannula 3.00 11/20/17 18:15 105 25 98 Room Air 11/20/17 18:15 103.1 105 25 157/76 (103) 99 Nasal Cannula 3.00 11/20/17 18:07 103.1 108 25 157/76 (103) 98 Physical Exam GENERAL: pleasant elderly lady, lying in bed, in NAD SKIN: darkening skin around lower legs HEAD: Atraumatic. Normocephalic. No temporal or scalp tenderness. EYES: Pupils equal round and reactive. Extraocular motions intact. No scleral icterus. No injection or drainage. ENT: Nose without bleeding, purulent drainage or septal hematoma. Throat without erythema, tonsillar hypertrophy or exudate. Uvula midline. Airway patent. NECK: Trachea midline. No JVD or lymphadenopathy. Supple, nontender, no meningeal signs. CARDIOVASCULAR: Irregular rhythm and rate RESPIRATORY: Clear to auscultation. Breath sounds equal bilaterally. No wheezes , rales, or rhonchi. GASTROINTESTINAL: Abdomen soft, non-tender, nondistended. No hepato-splenomegaly , or palpable masses. No guarding. MUSCULOSKELETAL: Extremities without clubbing, cyanosis, or edema. No joint tenderness, effusion, or edema noted. NEUROLOGICAL: Awake and alert. Oriented to person and place. Cranial nerves II through XII intact. Motor and sensory grossly within normal limits. Five out of 5 muscle strength in all muscle groups. Normal speech. Laboratory Laboratory Tests Test 11/20/17 18:50 White Blood Count 7.3 Red Blood Count 3.81 Hemoglobin 11.2 Hematocrit 32.3 Mean Corpuscular Volume 84.8 Mean Corpuscular Hemoglobin 29.4 Mean Corpuscular Hemoglobin Concent 34.7 Red Cell Distribution Width 15.6 Platelet Count 79 Mean Platelet Volume 9.7 Neutrophils (%) (Auto) 77.1 Lymphocytes (%) (Auto) 7.7 Monocytes (%) (Auto) 14.9 Eosinophils (%) (Auto) 0.0 Basophils (%) (Auto) 0.3 Neutrophils # (Auto) 5.6 Lymphocytes # (Auto) 0.6 Monocytes # (Auto) 1.1 Eosinophils # (Auto) 0.0 Basophils # (Auto) 0.0 CBC Comment AUTO DIFF Differential Total Cells Counted 100 Neutrophils % (Manual) 81 Band Neutrophils % 6 Lymphocytes % 4 Monocytes % 8 Neutrophils # (Manual) 6.4 Myelocytes 1 Differential Comment FINAL DIFF MANUAL Platelet Estimate LOW Platelet Morphology Comment NORMAL Ovalocytes 1+ Prothrombin Time 13.4 Prothromb Time International Ratio 1.3 Activated Partial Thromboplast Time 28.0 Blood Urea Nitrogen 31 Creatinine 1.50 Random Glucose 174 Total Protein 8.8 Albumin 3.1 Calcium Level 8.0 Alkaline Phosphatase 51 Aspartate Amino Transf (AST/SGOT) 64 Alanine Aminotransferase (ALT/SGPT) 56 Total Bilirubin 0.7 Sodium Level 132 Potassium Level 4.7 Chloride Level 99 Carbon Dioxide Level 26.9 Anion Gap 6 Estimat Glomerular Filtration Rate 33 Lactic Acid Level 1.7 B-Type Natriuretic Peptide 1507 Date/Time Source Procedure Growth Status 11/20/17 21:00 Blood Peripheral Aerobic Blood Culture Pending Received 11/20/17 21:00 Blood Peripheral Anaerobic Blood Culture Pending Received 11/20/17 20:10 Nasal Washing Influenza Types A,B Antigen (GORDON) - Final NEGATIVE FOR FLU A AND B ANTIGEN.... Complete (Toña Okeefe MD R1) Result Diagram: 11/20/17 1850 11/20/17 1850 Imaging Last Impressions Head CT 11/20/17 0000 Signed Impressions: Service Date/Time: Monday, November 20, 2017 19:18 - CONCLUSION: No acute intracranial findings. Aram Scott MD (Toña Okeefe MD R1) Caprini VTE Risk Assessment Caprini VTE Risk Assessment: Mod/High Risk (score >= 2) Caprini Risk Assessment Model Point Value = 1 Point Value = 2 Point Value = 3 Point Value = 5 Age 41-60 Minor surgery BMI > 25 kg/m2 Swollen legs Varicose veins or History of unexplained or recurrent spontaneous Oral contraceptives or hormone replacement Sepsis (< 1 month) Serious lung disease, including pneumonia (< 1 month) Abnormal pulmonary function Acute myocardial infarction Congestive heart failure (< 1 month) History of inflammatory bowel disease Medical patient at bed rest Age 61-74 Arthroscopic surgery Major open surgery (> 45 min) Laparoscopic surgery (> 45 min) Malignancy Confined to bed (> 72 hours) Immobilizing plaster cast Central venous access Age >= 75 History of VTE Family history of VTE Factor V Leiden Prothrombin 79341H Lupus anticoagulant Anticardiolipin antibodies Elevated serum homocysteine Heparin-induced thrombocytopenia Other congenital or acquired thrombophilia Stroke (< 1 month) Elective arthroplasty Hip, pelvis, or leg fracture Acute spinal cord injury (< 1 month) Prophylaxis Regimen Total Risk Factor Score Risk Level Prophylaxis Regimen 0-1 Low Early ambulation 2 Moderate Order ONE of the following: *Sequential Compression Device (SCD) *Heparin 5000 units SQ BID 3-4 Higher Order ONE of the following medications: *Heparin 5000 units SQ TID *Enoxaparin/Lovenox 40 mg SQ daily (WT < 150 kg, CrCl > 30 mL/min) *Enoxaparin/Lovenox 30 mg SQ daily (WT < 150 kg, CrCl > 10-29 mL/min) *Enoxaparin/Lovenox 30 mg SQ BID (WT < 150 kg, CrCl > 30 mL/min) AND/OR *Sequential Compression Device (SCD) 5 or more Highest Order ONE of the following medications: *Heparin 5000 units SQ TID (Preferred with Epidurals) *Enoxaparin/Lovenox 40 mg SQ daily (WT < 150 kg, CrCl > 30 mL/min) *Enoxaparin/Lovenox 30 mg SQ daily (WT < 150 kg, CrCl > 10-29 mL/min) *Enoxaparin/Lovenox 30 mg SQ BID (WT < 150 kg, CrCl > 30 mL/min) AND *Sequential Compression Device (SCD) (Toña Okeefe MD R1) Assessment and Plan Assessment and Plan 82 yr old F w/ PMHx of T2DM, CHF (Echo 10/10/17 w/ EF 60-65% ) CAD s/p AICD placement, Hep C, HTN, COPD on home 2L O2, and Afib on Eliquis presents to the ED with fever, tachycardia, AMS, and SOB. Patient meets sepsis criteria. Admitted for further evaluation and treatment. Discussed Condition With Dr. Main (Toña Okeefe MD R1) Attending Attestation THIS CASE WAS DISCUSSED WITH THE RESIDENT PHYSICIANS. I HAVE REVIEWED THE RECORD AND AGREE WITH THE ABOVE NOTE AND PLAN OF CARE WAS DISCUSSED. I HAVE AUTHORIZED THE ORDER FOR ADMISSION TO AN IN-PATIENT STATUS. (Delmer Dangelo MD) Problem List: (1) Sepsis ICD Codes: A41.9 - Sepsis, unspecified organism Status: Acute Plan: Patient met sepsis criteria with fever (highest recorded temp of 103.1) and tachycardia (105-108) upon admission. Unknown etiology. Viral URI vs UTI. * No leukocytosis, WBC 7.3 * Lactic acid wnl 1.7 * Influenza x2 negative * Resp. panel pending * Blood cultures pending * UA trace leukocyte esterase, bacteria, moderate occult blood, protein * Legionella and pneumococcal urine antigen pending * Urine culture pending * CXR 12/24- cardiomegaly, otherwise, negative * s/p Rocephin 1,000mg IV once and Azithromycin 500 mg PO once * Continue Azithromycin 500mg PO daily and Rocephin 1,000mg IV daily tomorrow * Tylenol 650mg PO q6h for fever * CBCw/ diff and CMP ordered for the AM (2) Altered mental status ICD Codes: R41.82 - Altered mental status, unspecified Status: Resolved Plan: Patient back to baseline mental status. Oriented to person and place. Head CT negative (3) Atrial fibrillation with rapid ventricular response ICD Codes: I48.91 - Unspecified atrial fibrillation; N18.9 - Chronic kidney disease, unspecified Status: Acute Plan: Heart rate 105-108 s/p x1 Cardizem en route and x1 Cardizem in ED Continue home meds: Cardizem 180mg PO bid Metroprolol 50mg PO bid Apixaban 2.5mg PO bid Continue to monitor with telemetry (4) DM (diabetes mellitus) ICD Codes: E11.9 - Type 2 diabetes mellitus without complications Status: Chronic Plan: Held home DM meds Detemir 5 units q12hr Very low dose sliding scale (5) Chronic systolic CHF (congestive heart failure) ICD Codes: I50.22 - Chronic systolic congestive heart failure Status: Chronic Plan: Echo 09/06/17 w/ EF 60-65% Stable Continue Bumetanide 1 mg PO bid, Spironolactone 25 mg PO daily (6) Hypertension ICD Codes: I10 - Essential (primary) hypertension Status: Chronic Plan: Continue home Lisinopril 5 mg PO daily (7) COPD (chronic obstructive pulmonary disease) ICD Codes: J44.9 - Chronic obstructive pulmonary disease, unspecified Status: Chronic Plan: Patient on 2L O2 home Continue home symbicort inh 2 puff bid Duonebs q6hr PRN SOB/wheezing (8) Hypothyroidism ICD Codes: E03.9 - Hypothyroidism, unspecified Status: Acute Plan: Continue levothyroxine 125 mcg PO daily at 0600 (9) CKD (chronic kidney disease) stage 3, GFR 30-59 ml/min ICD Codes: N18.3 - Chronic kidney disease, stage 3 (moderate) Status: Chronic Plan: Cr 1.78 this AM, improving, now 1.50 Continue to monitor I & Os (10) Nutrition, metabolism, and development symptoms ICD Codes: R63.8 - Other symptoms and signs concerning food and fluid intake Plan: Fluids: none Diet: heart healthy other: vitals q4h, monitor I & Os, telemetry DVT ppx: patient on Eliquis GI ppx: Famotidine 20mg PO daily (Toña Okeefe MD R1) Physician Certification 2 Midnight Certification Type: Admission for Inpatient Services Order for Inpatient Services The services are ordered in accordance with Medicare regulations or non- Medicare payer requirements, as applicable. In the case of services not specified as inpatient-only, they are appropriately provided as inpatient services in accordance with the 2-midnight benchmark. Estimated LOS (days): 2 2 days is the estimated time the patient will need to remain in the hospital, assuming treatment plan goals are met and no additional complications. Post-Hospital Plan: Home (Toña Okeefe MD R1) Problem Qualifiers (1) Sepsis: Qualified Codes: A41.9 - Sepsis, unspecified organism Toña Okeefe MD R1 Nov 20, 2017 22:06 Delmer Dangelo MD Nov 22, 2017 09:12
[2017-11-20] MEDS ORDERED: RESP: ALBUTEROL 2.5 MG/IPRATROPIUM 0.5 MG NEB (PRN) NEB (22:15)
[2017-11-20] MEDS ORDERED: LACTULOSE SYRUP 20 GM/30 ML CUP PO PRN (22:15)
[2017-11-20] MEDS ORDERED: AZITHROMYCIN 250 MG TAB PO ONE (22:15)
[2017-11-20] MEDS ORDERED: SENNOSIDES 8.6 MG TAB PO PRN (22:15)
[2017-11-20] MEDS ORDERED: BISACODYL 10 MG SUPP RECTAL PRN (22:15)
[2017-11-20] MEDS ORDERED: ACETAMINOPHEN 325 MG TAB PO PRN (22:15)
[2017-11-20] MEDS ORDERED: MAGNESIUM HYDROXIDE SUSP 30 ML CUP PO PRN (22:15)
[2017-11-20 22:20] VITALS: BP 115/70; PULSE 96; RESP 20; TEMP 99.2; O2SAT 97
[2017-11-20] MEDS ORDERED: DEXTROSE 50% IN WATER 50 ML VIAL(D50) IV PUSH PRN (22:45)
[2017-11-20] MEDS ORDERED: GLUCAGON 1 MG/ML VIAL OTHER PRN (22:45)
[2017-11-20] MEDS: METOPROLOL TARTRATE 50 MG TAB PO SCH (22:49)
[2017-11-20 23:39] VITALS: PULSE 108
[2017-11-21] VITALS (12 sets, daily range): BP systolic 87–151; BP diastolic 53–89; PULSE 60–125; RESP 20–22; TEMP 98–102.1; O2SAT 95–99
[2017-11-21] MEDS ORDERED: LEVALBUTEROL INH SCH
[2017-11-21 00:38] LABS: BLOOD, URINE SMALL (NEG); GLUCOSE,URINE NEG (NEG); KETONE, URINE NEG (NEG); NITRITE,URINE NEG (NEG); PH, URINE 6.5 (5.0-8.5); SQUAMOUS EPITHELIAL CELL URINE <1 /hpf (0-5); URINE COLOR YELLOW (YELLW/STRAW)
[2017-11-21 00:41] LABS: COMMENT (UR) CULT NOT INDICATED; CULTURE IF INDICATED CULT NOT INDICATED
[2017-11-21] MEDS: LEVOTHYROXINE SODIUM 125 MCG TAB PO SCH (05:29)
[2017-11-21 07:20] LABS: MEAN CELL VOLUME 85.5 FL (80.0-100.0); MEAN CORPUSCULAR HEMOGLOBIN 28.9 PG (27.0-34.0); MEAN CORPUSCULAR HGB CONC 33.8 % (32.0-36.0); PLATELET COUNT 65 TH/MM3 (150-450); RED BLOOD COUNT 3.74 MIL/MM3 (4.00-5.30); RED CELL DISTRIBUTION WIDTH 15.1 % (11.6-17.2); WHITE BLOOD COUNT 6.6 TH/MM3 (4.0-11.0)
[2017-11-21 07:25] LABS: HEMO FLAGS AUTO DIFF
--- NOTE | 2017-11-21 07:32 | EKG ---
Date Performed: 11/20/2017 Time Performed: 18:06:52 PTAGE: 82 years EKG: ATRIAL FIBRILLATION WITH RAPID VENTRICULAR RESPONSE ST ABNORMALITY, CONSIDER LATERAL ISCHEM IA ABNORMAL ECG PREVIOUS TRACING : 11/20/2017 09.57 No significant change from previous tracing noted. DOCTOR: Saleem Nava Interpretating Date/Time 11/21/2017 07:31:55
[2017-11-21 07:45] LABS: ALT (GPT) 47 U/L (10-53); ANION GAP 9 MEQ/L (5-15); AST (GOT) 47 U/L (15-37); BICARBONATE 25.3 MEQ/L (21.0-32.0); BLOOD UREA NITROGEN 30 MG/DL (7-18); CHLORIDE 101 MEQ/L (98-107); GLOMERULAR FILTRATION RATE 38 ML/MIN (>89); POTASSIUM 4.3 MEQ/L (3.5-5.1); SODIUM (NA) 135 MEQ/L (136-145)
[2017-11-21 07:47] LABS: ALKALINE PHOSPHATASE 49 U/L (45-117); TOTAL BILIRUBIN ADULT 0.6 MG/DL (0.2-1.0)
--- NOTE | 2017-11-21 08:13 | HHI.FPPN ---
Subjective Remarks FM Attending Note: Patient seen and examined. S: Chart and all resident physician notes reviewed. In summary this is a 82 year old female who was admitted with an admission diagnosis of A. Fib On Rvr, Acute Bronchitis, Sepsis. PMHx of T2DM, CHF (Echo 09/06/17 w/ EF 60-65% ) CAD s /p AICD placement, Hep C, HTN, COPD on home 2L O2, and Afib on Eliquis, presents to the ED with tachycardia, AMS, and SOB. Patient's preferred language is Sammarinese. History provided by Dr. Main. Congestion and cough earlier in the day of admission; seen in the ER and sent home on oral antibiotic therapy. Symptoms worsened so came back to the ER for admission. Fever overnight ot 102. This AM denies SOB or pain. Objective Vitals Vital Signs Date Time Temp Pulse Resp B/P (MAP) Pulse Ox O2 Delivery O2 Flow Rate FiO2 11/21/17 08:03 99.7 117 21 112/68 (83) 99 11/21/17 07:18 16 11/21/17 06:54 96 21 11/21/17 06:01 102.1 125 20 151/89 (109) 95 11/21/17 04:00 Nasal Cannula 2.00 11/21/17 03:52 106 11/21/17 00:00 Nasal Cannula 2.00 11/21/17 00:00 98.5 96 20 138/72 (94) 98 11/21/17 00:00 99 11/20/17 23:39 108 11/20/17 22:20 99.2 96 20 115/70 (85) 97 11/20/17 22:14 11/20/17 18:46 99 Nasal Cannula 3.00 11/20/17 18:15 105 25 98 Room Air 11/20/17 18:15 103.1 105 25 157/76 (103) 99 Nasal Cannula 3.00 11/20/17 18:07 103.1 108 25 157/76 (103) 98 I/O 11/20/17 11/20/17 11/20/17 11/21/17 11/21/17 11/21/17 07:00 15:00 23:00 07:00 15:00 23:00 Intake Total 240 ml Output Total 750 ml Balance -510 ml Intake Oral 240 ml Output Urine Total 750 ml # Bowel Movements 1 Result Diagram: 11/21/1761411/21/17614 Other Results Item Value Date Time B-Type Natriuretic Peptide 1507 PG/ML H 11/20/171849 B-Type Natriuretic Peptide 2310 PG/ML H 11/21/17614 Lactic Acid Level 1.7 mmol/L 11/20/171849 Calcium Level 8.6 MG/DL 11/21/17614 Aspartate Amino Transf (AST/SGOT) 47 U/L H 11/21/17614 Alanine Aminotransferase (ALT/SGPT) 47 U/L 11/21/17614 Troponin I LESS THAN 0.02 NG/ML L 11/20/171849 Urine Specific [place] 1.017 11/21/17 0005 Urine Occult Blood SMALL H 11/21/17 0005 Urine Nitrite NEG 11/21/17 0005 Urine Leukocyte Esterase NEG 11/21/17 0005 Urine RBC 21 /hpf H 11/21/17 0005 Urine WBC 1 /hpf 11/21/17 0005 Influenza Types A,B Antigen (GORDON) - Final Complete 11/20/172009 Nasal Washing NEGATIVE FOR FLU A AND B ANTIGEN.... Imaging Last [address] 11/20/17 0000 Signed Impressions: Service Date/Time: Monday, November 20, 2017 19:18 - CONCLUSION: No acute intracranial findings. Aram Scott MD Objective Remarks O. CONSTITUTIONAL/GEN: normally nourished, in NAD. Diaphoretic with fever earlier this AM. Pillow and sheets are wet. EYES: conjunctiva normal, PERRLA, EOMI. LUNGS: Left posterior rales, respiratory effort is normal. CARDIOVASCULAR: RR without murmur or gallop. No significant edema. GI/ABD: soft without masses, without organomegaly. NEURO: No focal deficits. SKIN: color normal, no rashes noted. MUSC: back is normal in appearance. Extremities are normal in appearance. PSYCH/MENTAL STATUS: Awake and alert. Will carry on a normal conversation in Sammar[place] with Dr. Main. A/P Assessment and Plan 82 yr old F w/ PMHx of T2DM, CHF (Echo 09/06/17 w/ EF 60-65% ) CAD s/p AICD placement, Hep C, HTN, COPD on home 2L O2, and Afib on Eliquis presents to the ED with fever, tachycardia, AMS, and SOB. Patient meets sepsis criteria. Admitted for further evaluation and treatment. Problem List: (1) Sepsis ICD Codes: A41.9 - Sepsis, unspecified organism Status: Acute Plan: Patient met sepsis criteria with fever (highest recorded temp of 103.1) and tachycardia (105-108) upon admission. Unknown etiology. Viral URI vs UTI. * No leukocytosis, WBC 7.3 * Lactic acid wnl 1.7 * Influenza x2 negative * Resp. panel pending * Blood cultures pending * UA trace leukocyte esterase, bacteria, moderate occult blood, protein * Legionella and pneumococcal urine antigen pending * Urine culture pending * CXR 11/20- cardiomegaly, otherwise, negative * s/p Rocephin 1,000mg IV once and Azithromycin 500 mg PO once * Continue Azithromycin 500mg PO daily and Rocephin 1,000mg IV daily tomorrow * Tylenol 650mg PO q6h for fever * CBCw/ diff and CMP ordered for the AM (2) Altered mental status ICD Codes: R41.82 - Altered mental status, unspecified Status: Resolved Plan: Patient back to baseline mental status. Oriented to person and place. Head CT negative 11/21/17 Will continue to monitor. (3) COPD (chronic obstructive pulmonary disease) ICD Codes: J44.9 - Chronic obstructive pulmonary disease, unspecified Status: Chronic Plan: Patient on 2L O2 home Continue home symbicort inh 2 puff bid Duonebs q6hr PRN SOB/wheezing 11/21/17 Appears to be at least and acute exacerbation of COPD. Rales now in the left posterior chest would suggest possible pneumonia. WBC is normal. Flu screen negative. Will continue antibiotic therapy and monitor for adequate fluid intake orally. (4) Atrial fibrillation with rapid ventricular response ICD Codes: I48.91 - Unspecified atrial fibrillation; N18.9 - Chronic kidney disease, unspecified Status: Acute Plan: Heart rate 105-108 s/p x1 Cardizem en route and x1 Cardizem in ED Continue home meds: Cardizem 180mg PO bid Metroprolol 50mg PO bid Apixaban 2.5mg PO bid Continue to monitor with telemetry (5) DM (diabetes mellitus) ICD Codes: E11.9 - Type 2 diabetes mellitus without complications Status: Chronic Plan: Held home DM meds Detemir 5 units q12hr Very low dose sliding scale (6) Chronic systolic CHF (congestive heart failure) ICD Codes: I50.22 - Chronic systolic congestive heart failure Status: Chronic Plan: Echo 09/06/17 w/ EF 60-65% Stable Continue Bumetanide 1 mg PO bid, Spironolactone 25 mg PO daily (7) Hypertension ICD Codes: I10 - Essential (primary) hypertension Status: Chronic Plan: Continue home Lisinopril 5 mg PO daily (8) Hypothyroidism ICD Codes: E03.9 - Hypothyroidism, unspecified Status: Acute Plan: Continue levothyroxine 125 mcg PO daily at 0600 (9) CKD (chronic kidney disease) stage 3, GFR 30-59 ml/min ICD Codes: N18.3 - Chronic kidney disease, stage 3 (moderate) Status: Chronic Plan: Cr 1.78 this AM, improving, now 1.50 Continue to monitor I & Os (10) Nutrition, metabolism, and development symptoms ICD Codes: R63.8 - Other symptoms and signs concerning food and fluid intake Plan: Fluids: none Diet: heart healthy other: vitals q4h, monitor I & Os, telemetry DVT ppx: patient on Eliquis GI ppx: Famotidine 20mg PO daily Problem Qualifiers (1) Sepsis: Qualified Codes: A41.9 - Sepsis, unspecified organism Delmer Dangelo MD Nov 21, 2017 08:13
[2017-11-21 08:53] LABS: BANDS 4 % (0-6); NEUTROPHIL # MANUAL DIFF 5.3 TH/MM3 (1.8-7.7); POLYS (SEG NEUTROPHILS) 77 % (16-70); WBC DIFF SAMPLE 100
[2017-11-21 08:54] LABS: OVALOCYTES 1+ (NORMAL); PLATELET ESTIMATE SMEAR LOW (NORMAL); PLATELET MORPHOLOGY ENLARGED (NORMAL)
[2017-11-21 08:55] LABS: SCAN/DIFF FINAL DIFF MANUAL
[2017-11-21] MEDS ORDERED: ARFORMOTEROL NEB SCH (09:00)
[2017-11-21] MEDS: INSULIN ASPART SUPPLEMENTAL SCALE SQ SCH ×4 (09:32→21:00)
[2017-11-21] MEDS: DILTIAZEM HCL 90 MG TAB PO SCH ×2 (09:33→21:22)
[2017-11-21] MEDS: BUDESONIDE-FORMOTEROL 160/4.5 MCG INHALER INH SCH ×2 (09:33→19:34)
[2017-11-21] MEDS: AZITHROMYCIN 250 MG TAB PO SCH (09:33)
[2017-11-21] MEDS: SPIRONOLACTONE 25 MG TAB PO SCH (09:34)
[2017-11-21] MEDS: SENNOSIDES 8.6 MG TAB PO SCH (09:34)
[2017-11-21] MEDS: DOCUSATE SODIUM 50 MG/SENNA 8.6 MG TAB PO SCH ×2 (09:34→21:20)
[2017-11-21] MEDS: METOPROLOL TARTRATE 50 MG TAB PO SCH ×2 (09:34→21:21)
[2017-11-21] MEDS: BUMETANIDE 1 MG TAB PO SCH ×2 (09:34→21:20)
[2017-11-21] MEDS: APIXABAN 2.5 MG TABLET PO SCH ×2 (09:34→21:20)
[2017-11-21] MEDS: FAMOTIDINE 20 MG TAB PO SCH (09:34)
[2017-11-21] MEDS: LISINOPRIL 5 MG TAB PO SCH (09:34)
[2017-11-21] MEDS: INSULIN DETEMIR 100 UNITS/ML VIAL SQ SCH ×2 (09:54→21:22)
[2017-11-21 14:55] LABS: BOR. HOLMESII NOT DETECTED (NOT DETECT); BOR. PARA/BRONCH NOT DETECTED (NOT DETECT); BOR. PERTUSSIS NOT DETECTED (NOT DETECT); INFLUENZA B NOT DETECTED (NOT DETECT); RESP SYNCYTIAL VIRUS A NOT DETECTED (NOT DETECT); RESP SYNCYTIAL VIRUS B NOT DETECTED (NOT DETECT)
[2017-11-21] MEDS ORDERED: cefTRIAXone INJ 1,000 MG in SODIUM CHLORIDE 0.9% INJ 100 ML IV SCH (18:45)
[2017-11-22] VITALS: BP 114/57; PULSE 55; PULSE 75; RESP 21; TEMP 100.5; O2SAT 99
[2017-11-22 04:00] VITALS: BP 132/63; PULSE 69; PULSE 94; RESP 21; TEMP 97.4; O2SAT 96
[2017-11-22] MEDS: LEVOTHYROXINE SODIUM 125 MCG TAB PO SCH (04:31)
[2017-11-22 07:37] LABS: AUTOMATED NEUTROPHIL # 2.5 TH/MM3 (1.8-7.7); BASOPHIL % 0.3 % (0.0-2.0); EOSINOPHIL % 0.2 % (0.0-4.0); HEMATOCRIT 33.2 % (35.0-46.0); LYMPH % 25.3 % (9.0-44.0); LYMPHOCYTE # 1.1 TH/MM3 (1.0-4.8); MEAN CELL VOLUME 84.8 FL (80.0-100.0); MEAN CORPUSCULAR HGB CONC 34.1 % (32.0-36.0); MONO % 18.5 % (0.0-8.0); NEUT % 55.7 % (16.0-70.0); PLATELET COUNT 73 TH/MM3 (150-450); RED BLOOD COUNT 3.92 MIL/MM3 (4.00-5.30); RED CELL DISTRIBUTION WIDTH 15.5 % (11.6-17.2); WHITE BLOOD COUNT 4.4 TH/MM3 (4.0-11.0)
[2017-11-22 07:38] LABS: ALT (GPT) 50 U/L (10-53); ANION GAP 8 MEQ/L (5-15); AST (GOT) 49 U/L (15-37); BICARBONATE 26.2 MEQ/L (21.0-32.0); BLOOD UREA NITROGEN 40 MG/DL (7-18); CHLORIDE 100 MEQ/L (98-107); GLOMERULAR FILTRATION RATE 29 ML/MIN (>89); SODIUM (NA) 134 MEQ/L (136-145)
[2017-11-22 07:39] LABS: HEMO FLAGS AUTO DIFF
[2017-11-22 07:40] LABS: ALKALINE PHOSPHATASE 44 U/L (45-117); TOTAL BILIRUBIN ADULT 0.4 MG/DL (0.2-1.0)
[2017-11-22 08:00] VITALS: BP 168/73; PULSE 63; RESP 20; TEMP 99; O2SAT 97
[2017-11-22] MEDS: INSULIN ASPART SUPPLEMENTAL SCALE SQ SCH ×2 (08:00→12:24)
[2017-11-22 08:51] LABS: OVALOCYTES 1+ (NORMAL)
[2017-11-22 08:52] LABS: PLATELET ESTIMATE SMEAR LOW (NORMAL); PLATELET MORPHOLOGY ENLARGED (NORMAL); SCAN/DIFF AUTO DIFF CONFIRMED
[2017-11-22] MEDS ORDERED: OSELTAMIVIR PHOSPHATE 75 MG CAP PO SCH (09:00)
[2017-11-22 09:30] VITALS: O2SAT 98
[2017-11-22] MEDS: AZITHROMYCIN 250 MG TAB PO SCH (09:52)
[2017-11-22] MEDS: BUDESONIDE-FORMOTEROL 160/4.5 MCG INHALER INH SCH (09:52)
[2017-11-22] MEDS: METOPROLOL TARTRATE 50 MG TAB PO SCH (09:52)
[2017-11-22] MEDS: FAMOTIDINE 20 MG TAB PO SCH (09:52)
[2017-11-22] MEDS: SENNOSIDES 8.6 MG TAB PO SCH (09:52)
[2017-11-22] MEDS: DILTIAZEM HCL 90 MG TAB PO SCH (09:52)
[2017-11-22] MEDS: DOCUSATE SODIUM 50 MG/SENNA 8.6 MG TAB PO SCH (09:52)
[2017-11-22] MEDS: BUMETANIDE 1 MG TAB PO SCH (09:53)
[2017-11-22] MEDS: LISINOPRIL 5 MG TAB PO SCH (09:53)
[2017-11-22] MEDS: SPIRONOLACTONE 25 MG TAB PO SCH (09:53)
[2017-11-22] MEDS: INSULIN DETEMIR 100 UNITS/ML VIAL SQ SCH (10:47)
[2017-11-22] MEDS: APIXABAN 2.5 MG TABLET PO SCH (10:48)
--- NOTE | 2017-11-22 11:33 | HHI.FPPN ---
Subjective Remarks Feeling well this morning, sitting up in chair. Still has cough but improved from admission. No pain (chest, belly, MSK). No shortness of breath. (Americo Main MD) Objective Vitals Vital Signs Date Time Temp Pulse Resp B/P (MAP) Pulse Ox O2 Delivery O2 Flow Rate FiO2 11/22/17 09:30 98 Nasal Cannula 2.00 11/22/17 08:00 99.0 63 20 168/73 (104) 97 11/22/17 04:00 94 11/22/17 04:00 97.4 69 21 132/63 (86) 96 11/22/17 00:00 100.5 75 21 114/57 (76) 99 11/22/17 00:00 55 11/21/17 20:00 Nasal Cannula 2.00 21 11/21/17 20:00 117 11/21/17 20:00 98.9 89 22 120/60 (80) 99 11/21/17 19:35 98 Nasal Cannula 2.00 11/21/17 16:02 98.1 74 20 110/61 (77) 97 11/21/17 16:00 69 11/21/17 13:46 60 98/56 (70) 11/21/17 13:04 98.0 64 20 87/53 (64) 97 11/21/17 12:00 65 I/O 11/21/17 11/21/17 11/21/17 11/22/17 11/22/17 11/22/17 07:00 15:00 23:00 07:00 15:00 23:00 Intake Total 240 ml 580 ml 320 ml Output Total 750 ml 500 ml Balance -510 ml 580 ml -180 ml Intake Oral 240 ml 480 ml 320 ml IV Total 100 ml Output Urine Total 750 ml 500 ml # Voids 3 2 # Bowel Movements 1 3 2 (Americo Main MD) Result Diagram: 11/22/17 0644 11/22/17 0644 Imaging Last Impressions Head CT 11/20/17 0000 Signed Impressions: Service Date/Time: Monday, November 20, 2017 19:18 - CONCLUSION: No acute intracranial findings. Aram Scott MD Objective Remarks CONSTITUTIONAL/GEN: normally nourished, in NAD. Yesterday's diaphoresis resolved. LUNGS: Normal rate and effort. Minimal crackles L base, otherwise clear CARDIOVASCULAR: Irregularly irregular rhythm, normal rate. No murmur. GI/ABD: soft without masses, without organomegaly. NEURO: No focal deficits. SKIN: color normal, no rashes noted. MUSC: back is normal in appearance. Extremities are normal in appearance. PSYCH/MENTAL STATUS: Awake and alert, oriented x3 Medications and IVs Current Medications Medications (Trade) Dose Ordered Sig/Marlon Route Start Time Stop Time Status Last Admin (Eliquis) 2.5 mg BID PO 11/21/17 09:00 11/22/17 10:48 (Symbicort 160-4.5 Mcg Inh) 2 puff BID INH 11/21/17 09:00 11/22/17 09:52 (Bumetanide) 1 mg BID PO 11/21/17 09:00 11/22/17 09:53 (Cardizem) 180 mg BID PO 11/21/17 09:00 11/22/17 09:52 (Synthroid) 125 mcg DAILY@0600 PO 11/21/17 06:00 11/22/17 04:31 (Prinivil) 5 mg DAILY PO 11/21/17 09:00 11/22/17 09:53 (Lopressor) 50 mg BID PO 11/20/17 22:00 11/22/17 09:52 (Senokot) 17.2 mg DAILY PO 11/21/17 09:00 11/22/17 09:52 (Aldactone) 25 mg DAILY PO 11/21/17 09:00 11/22/17 09:53 Patient Own Medication PT OWN MED: Arformoterol ... BID NEB 11/21/17 09:00 Future Hold Patient Own Medication PT OWN MED: Levalbuterol 15 GM ... Q6HR INH 11/21/17 00:00 Future Hold (Pepcid) 20 mg DAILY PO 11/21/17 09:00 11/22/17 09:52 (Zithromax) 500 mg DAILY PO 11/21/17 09:00 11/22/17 09:52 (Duoneb Neb) 1 ampule Q6HR NEB PRN NEB 11/20/17 22:15 11/21/17 06:55 (Tylenol) 650 mg Q6H PRN PO 11/20/17 22:15 11/21/17 06:18 (Arianne-Colace) 1 tab BID PO 11/21/17 09:00 11/22/17 09:52 (Milk Of Magnesia Liq) 30 ml Q12H PRN PO 11/20/17 22:15 (Senokot) 17.2 mg Q12H PRN PO 11/20/17 22:15 (Dulcolax Supp) 10 mg DAILY PRN RECTAL 11/20/17 22:15 (Lactulose Liq) 30 ml DAILY PRN PO 11/20/17 22:15 (Levemir Inj) 5 units Q12HR SQ 11/21/17 09:00 11/22/17 10:47 (D50w (Vial) Inj) 50 ml UNSCH PRN IV PUSH 11/20/17 22:45 (Glucagon Inj) 1 mg UNSCH PRN OTHER 11/20/17 22:45 (NovoLOG SUPPLEMENTAL SCALE) 1 ACHS SLIDING SCALE SQ 11/21/17 08:00 11/22/17 08:00 Ceftriaxone Sodium 1000 mg/ Sodium Chloride 100 ml @ 200 mls/hr Q24H IV 11/21/17 18:45 11/21/17 18:08 (Tamiflu) 75 mg BID PO 11/22/17 09:00 11/27/17 08:59 11/22/17 10:47 (Americo Main MD) A/P Assessment and Plan 82 yr old F w/ PMHx of T2DM, CHF (Echo 09/06/17 w/ EF 60-65% ) CAD s/p AICD placement, Hep C, HTN, COPD on home 2L O2, and Afib on Eliquis presenting with: (Americo Main MD) Attending Attestation Patient seen and examined. Case reviewed and discussed with the resident team. Agree with plan of care as discussed with me and documented in the resident note. (Delmer Dangelo MD) Problem List: (1) Influenza A ICD Codes: J10.1 - Influenza due to other identified influenza virus with other respiratory manifestations Plan: Patient met sepsis criteria with fever (highest recorded temp of 103.1) and tachycardia (105-108) upon admission. Suspected source was URI vs PNA Clinically stable with sepsis resolved Respiratory panel positive for Influenza A Leukocytosis resolved Lactic acid wnl 1.7 UA trace leukocyte esterase, bacteria, moderate occult blood, protein Legionella and pneumococcal urine antigen negative Urine culture grew contaminant ashish CXR 11/20- cardiomegaly, otherwise, negative * Discharge home * Tamiflu 75 mg PO BID x5 days * s/p two days Rocephin and Azithromycin * DC on cefuroxime 500 mg PO BID x5 days to cover for subsequent bacterial pneumonia * Tylenol PRN (2) Sepsis ICD Codes: A41.9 - Sepsis, unspecified organism Status: Resolved Plan: Sepsis resolved, source was influenza. See above plan. (3) Altered mental status ICD Codes: R41.82 - Altered mental status, unspecified Status: Resolved Plan: Patient back to baseline mental status Head CT negative Routine f/u with PCP (4) COPD (chronic obstructive pulmonary disease) ICD Codes: J44.9 - Chronic obstructive pulmonary disease, unspecified Status: Chronic Plan: Clinically stable Patient on 2L O2 home Continue home symbicort inh 2 puff bid See above plan for Influenza A (5) Atrial fibrillation with rapid ventricular response ICD Codes: I48.91 - Unspecified atrial fibrillation; N18.9 - Chronic kidney disease, unspecified Status: Acute Plan: Heart rate now well controlled Continue previous meds: Cardizem 180mg PO bid Metroprolol 50mg PO bid Apixaban 2.5mg PO bid (6) DM (diabetes mellitus) ICD Codes: E11.9 - Type 2 diabetes mellitus without complications Status: Chronic Plan: Resume home meds on discharge F/u with PCP (7) Chronic systolic CHF (congestive heart failure) ICD Codes: I50.22 - Chronic systolic congestive heart failure Status: Chronic Plan: Echo 09/06/17 w/ EF 60-65% Stable Continue Bumetanide 1 mg PO bid, Spironolactone 25 mg PO daily (8) Hypertension ICD Codes: I10 - Essential (primary) hypertension Status: Chronic Plan: Continue home Lisinopril 5 mg PO daily (9) Hypothyroidism ICD Codes: E03.9 - Hypothyroidism, unspecified Status: Acute Plan: Continue levothyroxine 125 mcg PO daily at 0600 (10) CKD (chronic kidney disease) stage 3, GFR 30-59 ml/min ICD Codes: N18.3 - Chronic kidney disease, stage 3 (moderate) Status: Chronic Plan: Cr 1.78 this AM, 1.68 on date of discharge Encourage oral fluids not to exceed 2 L daily F/u with PCP (Americo Main MD) Problem Qualifiers (1) Sepsis: Qualified Codes: A41.9 - Sepsis, unspecified organism Americo Main MD Nov 22, 2017 11:33 Delmer Dangelo MD Nov 22, 2017 16:36
[2017-11-22 12:00] VITALS: BP 106/56; PULSE 107; RESP 20; TEMP 98; O2SAT 98
[2017-11-22] MEDS ORDERED: [UNRECOGNIZED DRUG - CODE] PO (13:19)
[2017-11-22] MEDS ORDERED: CEFU1TAB18 PO (13:19)
--- NOTE | 2017-11-22 13:21 | HHI.DCPOC ---
Discharge Care Plan Diagnosis: (1) Influenza A Goals to Promote Your Health * To prevent worsening of your condition and complications * To maintain your health at the optimal level Directions to Meet Your Goals Take your medications as prescribed Follow your dietary instruction Follow activity as directed Keep your appointments as scheduled Take your immunizations and boosters as scheduled If your symptoms worsen call your PCP, if no PCP go to Urgent Care Center or Emergency Room Smoking is Dangerous to Your Health. Avoid second hand smoke Call the 24-hour hour crisis hotline for domestic abuse at Americo Main MD Nov 22, 2017 1:21 pm
--- NOTE | 2017-11-22 14:23 | HHI.DS ---
Discharge Summary Admission Date Nov 20, 2017 at 8:54 pm Discharge Date: Nov 22, 2017 Admitting Diagnosis A. fib on RVR, acute bronchitis, sepsis (1) Influenza A Diagnosis: Principal ICD Codes: J10.1 - Influenza due to other identified influenza virus with other respiratory manifestations (2) Sepsis Diagnosis: Principal ICD Codes: A41.9 - Sepsis, unspecified organism Status: Resolved (3) Altered mental status Diagnosis: Principal ICD Codes: R41.82 - Altered mental status, unspecified Status: Resolved (4) COPD (chronic obstructive pulmonary disease) Diagnosis: Secondary ICD Codes: J44.9 - Chronic obstructive pulmonary disease, unspecified Status: Chronic (5) Atrial fibrillation with rapid ventricular response Diagnosis: Secondary ICD Codes: I48.91 - Unspecified atrial fibrillation; N18.9 - Chronic kidney disease, unspecified Status: Acute (6) DM (diabetes mellitus) Diagnosis: Secondary ICD Codes: E11.9 - Type 2 diabetes mellitus without complications Status: Chronic (7) Chronic systolic CHF (congestive heart failure) Diagnosis: Secondary ICD Codes: I50.22 - Chronic systolic congestive heart failure Status: Chronic (8) Hypertension Diagnosis: Secondary Plan: Continue home Lisinopril 5 mg PO daily ICD Codes: I10 - Essential (primary) hypertension Status: Chronic (9) Hypothyroidism Diagnosis: Secondary ICD Codes: E03.9 - Hypothyroidism, unspecified Status: Acute (10) CKD (chronic kidney disease) stage 3, GFR 30-59 ml/min Diagnosis: Secondary ICD Codes: N18.3 - Chronic kidney disease, stage 3 (moderate) Status: Chronic Brief History 82 yr old F w/ PMHx of T2DM, CHF (Echo 09/06/17 w/ EF 60-65% ) CAD s/p AICD placement, Hep C, HTN, COPD on home 2L O2, and Afib on Eliquis, presents to the ED with tachycardia, AMS, and SOB. Patient's preferred language is [place]. History provided by Dr. Main and ED physician. Patient is a poor historian. Family not present, called and left a message. Unable to contact family at this time for more information. Patient initially presented to the ED earlier this morning with cold-like symptoms. She was evaluated and offered to be admitted. Patient declined and preferred to be home for the holidays. She was discharged with prescription for azithromycin and Tessalon Perles. Patient returned to the ER later this evening via ambulance due to an episode of altered mental status. Family noticed that her heart rate was elevated to 140s, O2 stats in low 80s, and she appeared dazed. Per ED note, family states that she is back to her normal mental baseline. Upon seeing her in the ED, patient is oriented to only person and place. She is able to state her name and where she is at. She is not oriented to time. She denies CP, SOB, abdominal pain, runny nose, cough, throat pain, and N/V. CBC/BMP: 11/22/17 0644 11/22/17 0644 Significant Findings Laboratory Tests Test 11/20/17 18:50 11/20/17 21:55 11/21/17 00:05 11/21/17 06:15 Red Blood Count 3.81 MIL/MM3 (4.00-5.30) 3.74 MIL/MM3 (4.00-5.30) Hemoglobin 11.2 GM/DL (11.6-15.3) 10.8 GM/DL (11.6-15.3) Hematocrit 32.3 % (35.0-46.0) 32.0 % (35.0-46.0) Platelet Count 79 TH/MM3 (150-450) 65 TH/MM3 (150-450) Neutrophils (%) (Auto) 77.1 % (16.0-70.0) Lymphocytes (%) (Auto) 7.7 % (9.0-44.0) Monocytes (%) (Auto) 14.9 % (0.0-8.0) Lymphocytes # (Auto) 0.6 TH/MM3 (1.0-4.8) Monocytes # (Auto) 1.1 TH/MM3 (0-0.9) Neutrophils % (Manual) 81 % (16-70) 77 % (16-70) Lymphocytes % 4 % (9-44) 8 % (9-44) Myelocytes 1 % (0-0) Platelet Estimate LOW (NORMAL) LOW (NORMAL) Ovalocytes 1+ (NORMAL) 1+ (NORMAL) Prothrombin Time 13.4 SEC (9.8-11.6) Blood Urea Nitrogen 31 MG/DL (7-18) 30 MG/DL (7-18) Creatinine 1.50 MG/DL (0.50-1.00) 1.33 MG/DL (0.50-1.00) Random Glucose 174 MG/DL (74-106) 181 MG/DL (74-106) Total Protein 8.8 GM/DL (6.4-8.2) 8.3 GM/DL (6.4-8.2) Albumin 3.1 GM/DL (3.4-5.0) 3.0 GM/DL (3.4-5.0) Calcium Level 8.0 MG/DL (8.5-10.1) Aspartate Amino Transf (AST/SGOT) 64 U/L (15-37) 47 U/L (15-37) Alanine Aminotransferase (ALT/SGPT) 56 U/L (10-53) Sodium Level 132 MEQ/L (136-145) 135 MEQ/L (136-145) Estimat Glomerular Filtration Rate 33 ML/MIN (>89) 38 ML/MIN (>89) Troponin I LESS THAN 0.02 NG/ML B-Type Natriuretic Peptide 1507 PG/ML (0-100) 2310 PG/ML (0-100) Influenza Type A (RT-PCR) DETECTED (NOT DETECT) Influenza Type A (H3) (PCR) DETECTED (NOT DETECT) Urine Protein 100 mg/dL (NEG-TRACE) Urine Occult Blood SMALL (NEG) Urine RBC 21 /hpf (0-3) Monocytes % 11 % (0-8) Platelet Morphology Comment ENLARGED (NORMAL) Test 11/21/17 11:10 11/22/17 06:44 Troponin I 0.06 NG/ML (0.02-0.05) Red Blood Count 3.92 MIL/MM3 (4.00-5.30) Hemoglobin 11.3 GM/DL (11.6-15.3) Hematocrit 33.2 % (35.0-46.0) Platelet Count 73 TH/MM3 (150-450) Monocytes (%) (Auto) 18.5 % (0.0-8.0) Platelet Estimate LOW (NORMAL) Platelet Morphology Comment ENLARGED (NORMAL) Ovalocytes 1+ (NORMAL) Blood Urea Nitrogen 40 MG/DL (7-18) Creatinine 1.68 MG/DL (0.50-1.00) Random Glucose 134 MG/DL (74-106) Total Protein 8.4 GM/DL (6.4-8.2) Albumin 2.9 GM/DL (3.4-5.0) Alkaline Phosphatase 44 U/L (45-117) Aspartate Amino Transf (AST/SGOT) 49 U/L (15-37) Sodium Level 134 MEQ/L (136-145) Estimat Glomerular Filtration Rate 29 ML/MIN (>89) B-Type Natriuretic Peptide 488 PG/ML (0-100) Imaging Last Impressions Head CT 11/20/17 0000 Signed Impressions: Service Date/Time: Tuesday, November 20, 2017 19:18 - CONCLUSION: No acute intracranial findings. Aram Scott MD CXR - no acute process PE at Discharge CONSTITUTIONAL/GEN: normally nourished, in NAD. Yesterday's diaphoresis resolved. LUNGS: Normal rate and effort. Minimal crackles L base, otherwise clear CARDIOVASCULAR: Irregularly irregular rhythm, normal rate. No murmur. GI/ABD: soft without masses, without organomegaly. NEURO: No focal deficits. SKIN: color normal, no rashes noted. MUSC: back is normal in appearance. Extremities are normal in appearance. PSYCH/MENTAL STATUS: Awake and alert, oriented x3 Hospital Course Admitted with high fever, tachycardia, mild confusion. Initially met sepsis criteria, suspected source URI vs pneumonia. Improved with Rocephin / azithromycin and supportive care, sepsis resolved. Respiratory panel resulted positive for Influenza A which was likely source of her illness. Medically very stable for discharge home with Tamiflu and cefuroxime for 5 days (cefuroxime to cover possible superimposed bacterial pneumonia). She will need PCP follow up in a couple weeks at which time it would be worth repeating a BMP due to mild [id number] renal disease. Pt Condition on Discharge: Good Discharge Disposition: Discharge Home Discharge Instructions DIET: Follow Instructions for: As Tolerated, No Restrictions Activities you can perform: Regular-No Restrictions Follow up Referrals: PCP Follow-up - 2 Weeks PCP Follow-up @ [facility] New Medications: Cefuroxime (Ceftin) 250 Mg Tab 500 MG PO BID for 5 Days, #20 TAB Oseltamivir Phosphate (Oseltamivir Phosphate) 75 Mg Cap 75 MG PO BID, #10 CAP 0 Refills Continued Medications: Albuterol 8.5 GM Inh (Proair Hfa 8.5 GM Inh) 90 Mcg/Act Aer 1 PUFF INH BID PRN for SHORTNESS OF BREATH, #1 INHALER 0 Refills 108 mcg/actuation Alendronate (Alendronate) 70 Mg Tab 70 MG PO Q7D for Osteporosis Treatment, #4 TAB 0 Refills Apixaban (Eliquis) 2.5 Mg Tab 2.5 MG PO BID for Blood Clot Prevention, TAB 0 Refills Arformoterol Neb (Brovana Neb) 15 Mcg/2 Ml Vial 1 NEBULE NEB BID for Broncospasm, #60 NEBULE Maintenance treatment of bronchoconstriction in COPD. Benzonatate (Tessalon Perles) 100 Mg Cap 100 MG PO TID PRN for COUGH, #15 CAP 0 Refills Budesonide-Formoterol Inh (Symbicort Inh) 160-4.5 Mcg/Act Aero 2 PUFF INH BID, #1 INHALER 0 Refills Bumetanide (Bumetanide) 1 Mg Tab 1 MG PO BID, #60 TAB 0 Refills Diltiazem (Diltiazem) 90 Mg Tab 180 MG PO BID for Angina, #120 TAB 0 Refills Insulin Degludec Inj (Tresiba Flextouch Pen Inj) 300 unit/3 ML Pen 10 UNITS SQ HS for Blood Sugar Management, #15 ML 0 Refills Insulin Human Regular Inj (Novolin R Inj) 1,000 Unit/10 Ml Vial 1 UNIT SQ Q4HR for dm for 30 Days, INJECTION Levalbuterol 15 GM Inh (Xopenex Hfa 15 GM Inh) 45 Mcg/Act Aer 45 MCG INH Q6HR, #1 INHALER 0 Refills Shake well before using. (1 puff = 45 mcg) Levothyroxine (Levothyroxine) 125 Mcg Tab 125 MCG PO DAILY for Thyroid, #30 TAB 0 Refills Lisinopril (Lisinopril) 5 Mg Tab 5 MG PO DAILY for Blood Pressure Management, #30 TAB 0 Refills Metoprolol Tartrate (Metoprolol Tartrate) 50 Mg Tab 50 MG PO BID, #60 TAB 0 Refills Oxygen (O2) (Oxygen (O2)) Device 2 LITER CHRISTIAN.CANULA CONTINUOUS for Prevent Hypoxemia, #2 CYLINDER 0 Refills Oxygen Concentrator Portable Gaseous 2 L/min via Nasal Canula Continuous For 99 months Ranitidine (Zantac) 150 Mg Tab 150 MG PO DAILY for Reduce Stomach Acid, #30 TAB 0 Refills Sennosides (Senna Lax) 8.6 Mg Tab 17.2 MG PO DAILY for Constipation, #30 TAB Sitagliptin (Januvia) 50 Mg Tab 50 MG PO BID for Blood Sugar Management, #60 TAB 0 Refills Spironolactone (Spironolactone) 25 Mg Tab 25 MG PO DAILY, #30 TAB 0 Refills Discontinued Medications: Azithromycin (Zithromax Z-Chris) 250 Mg Dspk 250 MG PO DIRECTED for Infection, #1 DSPK 0 Refills 500 MG (2 tabs) day 1, then 1 tab days 2-5. Americo Main MD Nov 22, 2017 2:23 pm
--- NOTE | 2017-11-22 17:11 | EKG ---
Date Performed: 11/21/2017 Time Performed: 11:52:13 PTAGE: 82 years EKG: ELECTRONIC VENTRICULAR PACEMAKER UNDERLYING RHYTHM IS ATRIAL FIBRILLATION ABNORMAL RHYTHM E CG Compared to PREVIOUS TRACING , the patient is now rate controlled and has demand pacing. PREVIOUS TRA CIN11/20/2017 18.06 DOCTOR: Park Kramer Interpretating Date/Time 11/22/2017 17:09:48
== END 2017-11-22 14:34 | disposition home or self-care (01) | DRG 872 ==
LOC: NEPE 17:57 → NEDA 20:54 → N04A 22:24
PROVIDERS: ADMIT Family Medicine; ATTEND Family Medicine
DX: A41.9 Sepsis, unspecified organism (principal); J10.1 Influenza due to other identified influenza virus with other respiratory manifestations; J44.0 Chronic obstructive pulmonary disease with (acute) lower respiratory infection; I50.22 Chronic systolic (congestive) heart failure; I13.0 Hypertensive heart and chronic kidney disease with heart failure and stage 1 through stage 4 chronic kidney disease, or unspecified chronic kidney disease; J20.9 Acute bronchitis, unspecified; Z99.81 Dependence on supplemental oxygen; I48.91 Unspecified atrial fibrillation; R00.0 Tachycardia, unspecified; N18.3 Chronic kidney disease, stage 3 (moderate); Z95.810 Presence of automatic (implantable) cardiac defibrillator; I25.10 Atherosclerotic heart disease of native coronary artery without angina pectoris; E11.22 Type 2 diabetes mellitus with diabetic chronic kidney disease; I25.2 Old myocardial infarction; B19.20 Unspecified viral hepatitis C without hepatic coma; E03.9 Hypothyroidism, unspecified; K21.9 Gastro-esophageal reflux disease without esophagitis; K74.60 Unspecified cirrhosis of liver; M81.0 Age-related osteoporosis without current pathological fracture; Z95.5 Presence of coronary angioplasty implant and graft; R41.82 Altered mental status, unspecified
CPT/HCPCS: 70450; 80053; 81001; 82948; 83605; 83880; 84484; 85007; 85025; 85027; 85610; 85730; 87040; 87205; 87449; 87633; 87804; 93005; 94664; 96365; 96366; 96375; J0696; J1815; J7040

== ENCOUNTER 2017-12-10 08:04 | Emergency (ER) | payer MEDICARE, MEDICAID ==
[~2017-12-10] VITALS: Ht 149.9 cm; Wt 49.0 kg
[~2017-12-10 08:04] MED LIST changes: +CEFU1TAB18 PO; -FERR325T72 PO; -GLIM1TAB PO; -METO25TA3 PO; -POTA10CA PO; -ZITHTAB PO; +[UNRECOGNIZED DRUG - CODE] PO
[2017-12-10 08:07] VITALS: BP 138/89; PULSE 122; RESP 18; TEMP 98.7; O2SAT 95
--- NOTE | 2017-12-10 09:00 | RADRPT ---
EXAM DATE/TIME: 12/10/2017 08:45 [facility] COMPARISON: CHEST SINGLE AP, November 04, 2016, 11:28. CHEST PA & LAT, June 26, 2015, 20:48. INDICATIONS : Cough for 1 month MEDICAL HISTORY : Gastroesophageal reflux disease. Congestive heart failure. Myocardial infarction. CVA. Hypertension. Hepatitis C. SURGICAL HISTORY : Cholecystectomy. Hysterectomy. Pacemaker. Cardiac stent. ENCOUNTER: Initial ACUITY: 1 month PAIN SCORE: 0/10 LOCATION: Bilateral chest FINDINGS: PA and lateral views of the chest. Dual-lead cardiac pacemaker in place. The lungs are clear. Mild ch ronic cardiac silhouette enlargement. No evidence of pleural effusion or pneumothorax. CONCLUSION: No acute cardiopulmonary disease identified. Aram Scott MD on December 10, 2017 at 8:55 Board Certified Radiologist. This report was verified electronically.
[2017-12-10 09:17] VITALS: BP 139/96; PULSE 96; RESP 20; O2SAT 98
--- NOTE | 2017-12-10 09:27 | PD ---
HPI Chief Complaint: Cold / Flu Symptoms Time Seen by Provider: 09:19 Travel History International Travel<30 days: No Contact w/Intl Traveler<30days: No Traveled to known affect area: No History of Present Illness HPI The patient is 82 years old and has been coughing for 3 weeks. She arrives here and because at night the coughing can become severe and sometimes make it difficult to breathe. The patient reports a scratching sensation in the throat often leading to coughing episodes. She was recently diagnosed with influenza. She has been compliant with multiple medications including Eliquis and diltiazem. Additional note is made of usage of promethazine with codeine for cough management without significant benefit. A fever as high as 100.1 according to the daughter is reported. There has been no chest pain or palpitations. There is no shortness of breath aside from that which accompanies severe coughing spells. The daughter notes no significant rhinorrhea. No history of esophageal reflux disease. PFSH Past Medical History Hx Anticoagulant Therapy: Yes (ELIQUIS) Arthritis: Yes (osteoporosis) Asthma: Yes Atrial Fibrillation: Yes Autoimmune Disease: No Blood Disorders: No Anxiety: No Depression: No Heart Rhythm Problems: Yes Cancer: No Cardiac Catheterization: Yes (10-01-09) Cardiovascular Problems: Yes High Cholesterol: No Chemotherapy: No Chest Pain: Yes Congestive Heart Failure: Yes Cirrhosis: Yes COPD: Yes Diabetes: Yes Patient Takes Glucophage: No Diminished Hearing: No Endocrine: Yes Gastrointestinal Disorders: Yes GERD: Yes Genitourinary: No Headaches: No Hepatitis: Yes (C) Hiatal Hernia: No Heparin Induced Thrombocytopen: No Hypertension: Yes Immune Disorder: Yes (HEP C) Implanted Vascular Access Dvce: Yes Kidney Stones: No Musculoskeletal: Yes Neurologic: No Psychiatric: No Reproductive: No Respiratory: Yes Migraines: No Myocardial Infarction: Yes (AUG 2014) Radiation Therapy: No Renal Failure: Yes Seizures: No Sickle Cell Disease: No Sleep Apnea: No Thyroid Disease: Yes Ulcer: No Menopausal: Yes : 5 Para: 4 Miscarriage: 1 Past Surgical History Abdominal Surgery: No AICD: No Appendectomy: No Arteriovenous Shunt: No Body Medical Devices: PACEMAKER AND STENTS Cardiac Surgery: Yes (PACEMAKER 2012) Cholecystectomy: Yes Coronary Stent: Yes (x2 2008) Ear Surgery: No Endocrine Surgery: No Eye Surgery: Yes (CATARACT) Genitourinary Surgery: Yes (GALLBLADDER) Gynecologic Surgery: Yes (HYSTERECTOMY) Hysterectomy: Yes Insulin Pump: No Joint Replacement: No Neurologic Surgery: No Oral Surgery: No Pacemaker: Yes Thoracic Surgery: No Other Surgery: Yes (STENTS PLACED) Social History Alcohol Use: No Tobacco Use: No Substance Use: No Allergies-Medications (Allergen,Severity, Reaction): Coded Allergies: penicillin G (Verified Allergy, Severe, Anaphylaxis, 12/10/17) Quinolones (Verified Adverse Reaction, Severe, Confusion, 12/10/17) levofloxacin (Verified Adverse Reaction, Severe, Confusion, 12/10/17) verapamil (Verified Adverse Reaction, Severe, Nausea/Vomiting, 12/10/17) Iodinated Contrast- Oral and IV Dye (Verified Adverse Reaction, Unknown, ) RENAL FAILURE Reported Meds & Prescriptions Reported Meds & Active Scripts Active Azithromycin 250 Mg Tab 250 Mg PO DIRECTED Take 2 tabs (500 mg) on day 1 then 1 tab daily x 4 days. Prednisone 20 Mg Tab 20 Mg PO DAILY 5 Days Guaifenesin-Codeine Liq 100-10 Mg/5 Ml Soln 10 Ml PO Q6H PRN 7 Days Ceftin (Cefuroxime Axetil) 250 Mg Tab 500 Mg PO BID 5 Days Oseltamivir Phosphate 75 Mg Cap 75 Mg PO BID Tessalon Perles (Benzonatate) 100 Mg Cap 100 Mg PO TID PRN Novolin R Inj (Insulin Human Regular) 1,000 Unit/10 Ml Vial 1 Unit SQ Q4HR 30 Days Januvia (Sitagliptin Phosphate) 50 Mg Tab 50 Mg PO BID Oxygen (O2) Device 2 Liter CHRISTIAN.CANULA CONTINUOUS Oxygen Concentrator Portable Gaseous 2 L/min via Nasal Canula Continuous For 99 months Senna Lax (Sennosides) 8.6 Mg Tab 17.2 Mg PO DAILY Reported Metoprolol Tartrate 50 Mg Tab 50 Mg PO BID Bumetanide 1 Mg Tab 1 Mg PO BID Spironolactone 25 Mg Tab 25 Mg PO DAILY Lisinopril 5 Mg Tab 5 Mg PO DAILY Tresiba Flextouch Pen Inj (Insulin Degludec Inj) 300 unit/3 ML Pen 10 Units SQ HS Diltiazem (Diltiazem HCl) 90 Mg Tab 180 Mg PO BID Xopenex Hfa 15 GM Inh (Levalbuterol 15 GM Inh) 45 Mcg/Act Aer 45 Mcg INH Q6HR Shake well before using. (1 puff = 45 mcg) Brovana Neb (Arformoterol Neb) 15 Mcg/2 Ml Vial 1 Nebule NEB BID Maintenance treatment of bronchoconstriction in COPD. Alendronate (Alendronate Sodium) 70 Mg Tab 70 Mg PO Q7D Proair Hfa 8.5 GM Inh (Albuterol Sulfate) 90 Mcg/Act Aer 1 Puff INH BID PRN 108 mcg/actuation Eliquis (Apixaban) 2.5 Mg Tab 2.5 Mg PO BID Zantac (Ranitidine HCl) 150 Mg Tab 150 Mg PO DAILY Levothyroxine (Levothyroxine Sodium) 125 Mcg Tab 125 Mcg PO DAILY Symbicort Inh (Budesonide/Formoterol Fumarate) 160-4.5 Mcg/Act Aero 2 Puff INH BID Review of Systems Except as stated in HPI: all other systems reviewed are Neg General / Constitutional: No: Fever Cardiovascular: No: Chest Pain or Discomfort Respiratory: Positive: Cough, Shortness of Breath (during the coughing spells only), No: Stridor (during coughing spells only) Physical Exam Narrative GENERAL: 82 yo F, elderly, NAD SKIN: Warm and dry. HEAD: Atraumatic. Normocephalic. EYES: Pupils equal and round. No scleral icterus. No injection or drainage. ENT: No nasal bleeding or discharge. Mucous membranes pink and moist. Psterior oropharynx widely patent. No tonsillar exudate, hypertrophy, or asymmetry. NECK: Trachea midline. No JVD. CARDIOVASCULAR: Irregular. Tachycardia. RESPIRATORY: No accessory muscle use. Clear to auscultation. Breath sounds equal bilaterally. GASTROINTESTINAL: Abdomen soft, non-tender, nondistended. Hepatic and splenic margins not palpable. MUSCULOSKELETAL: Extremities without clubbing, cyanosis, or edema. No obvious deformities. NEUROLOGICAL: Awake and alert. No obvious cranial nerve deficits. Motor grossly within normal limits. Five out of 5 muscle strength in the arms and legs. Normal speech. PSYCHIATRIC: Appropriate mood and affect; insight and judgment normal. Data Data Last Documented VS Vital Signs Date Time Temp Pulse Resp B/P (MAP) Pulse Ox O2 Delivery O2 Flow Rate FiO2 12/10/17 10:04 98 Nasal Cannula 2.00 12/10/17 10:04 108 18 138/80 (99) 12/10/17 08:07 98.7 VS reviewed Orders Orders Chest, Pa & Lat (12/10/17 08:31) Complete Blood Count With Diff (12/10/17 09:26) Basic Metabolic Panel (Bmp) (12/10/17 09:26) Iv Access Insert/Monitor (12/10/17 09:26) Ecg Monitoring (12/10/17 09:26) Oximetry (12/10/17 09:26) Oxygen Administration (12/10/17 09:26) Sodium Chloride 0.9% Flush (Ns Flush) (12/10/17 09:30) Al-Mag Hy-Si 40-40-4 Mg/Ml Liq (Mag-Al P (12/10/17 09:30) Lidocaine 2% Viscous (Xylocaine 2% Visco (12/10/17 09:30) Diltiazem Inj (Cardizem Inj) (12/10/17 09:30) Methylprednisolone So Succ Inj (Solumedr (12/10/17 10:45) Ed Discharge Order (12/10/17 10:45) Labs Laboratory Tests Test 12/10/17 09:45 White Blood Count 5.3 TH/MM3 Red Blood Count 3.69 MIL/MM3 Hemoglobin 10.8 GM/DL Hematocrit 31.7 % Mean Corpuscular Volume 85.9 FL Mean Corpuscular Hemoglobin 29.4 PG Mean Corpuscular Hemoglobin Concent 34.2 % Red Cell Distribution Width 15.6 % Platelet Count 87 TH/MM3 Mean Platelet Volume 8.9 FL Neutrophils (%) (Auto) 64.5 % Lymphocytes (%) (Auto) 17.3 % Monocytes (%) (Auto) 17.5 % Eosinophils (%) (Auto) 0.4 % Basophils (%) (Auto) 0.3 % Neutrophils # (Auto) 3.4 TH/MM3 Lymphocytes # (Auto) 0.9 TH/MM3 Monocytes # (Auto) 0.9 TH/MM3 Eosinophils # (Auto) 0.0 TH/MM3 Basophils # (Auto) 0.0 TH/MM3 CBC Comment AUTO DIFF Differential Comment AUTO DIFF CONFIRMED Platelet Estimate LOW Platelet Morphology Comment ENLARGED Ovalocytes 1+ Blood Urea Nitrogen 36 MG/DL Creatinine 2.06 MG/DL Random Glucose 230 MG/DL Calcium Level 9.0 MG/DL Sodium Level 134 MEQ/L Potassium Level 4.5 MEQ/L Chloride Level 99 MEQ/L Carbon Dioxide Level 28.4 MEQ/L Anion Gap 7 MEQ/L Estimat Glomerular Filtration Rate 23 ML/MIN [facility] Medical Decision Making Medical Screen Exam Complete: Yes Emergency Medical Condition: Yes Medical Record Reviewed: Yes Differential Diagnosis Afib, GERD, post-nasal drip, bronchitis Narrative Course Last Impressions Chest X-Ray 12/10/17 0831 Signed Impressions: Service Date/Time: Sunday, December 10, 2017 08:45 - CONCLUSION: No acute cardiopulmonary disease identified. Aram Scott MD CBC & BMP Diagram 12/10/17 09:45 Calcium Level 9.0 Patient has multiple medical problems. An occasional cough is been observed while she's been here in the ER. Admission for management of the cough is considered to be low yield and also place her at high risk for hospital- acquired infections. At this time keeping her here is considered to be suboptimal and outpatient management of chronic cough is superior approach. An element of bronchitis with or without postnasal drip could be contributory. In this scenario scripts as below. Long conversation ensued with the daughter who is agreeable with plan and all questions answered to content of both parties. Pt has reliable follow up with Claudia Richard. Diagnosis Primary Impression: A-fib Qualified Codes: I48.2 - Chronic atrial fibrillation Additional Impressions: CKD (chronic kidney disease) stage 3, GFR 30-59 ml/min Cough Referrals: Primary Care Physician 2 days Med/Other Pt SpecificInfo: Prescription(s) given Scripts Azithromycin (Azithromycin) 250 Mg Tab 250 MG PO DIRECTED for Infection, #6 TAB 0 Refills Take 2 tabs (500 mg) on day 1 then 1 tab daily x 4 days. Prov: Angel Gonzalez MD 12/10/17 Prednisone (Prednisone) 20 Mg Tab 20 MG PO DAILY for 5 Days, #5 TAB 0 Refills Prov: Angel Gonzalez MD 12/10/17 Guaifenesin-Codeine Liq (Guaifenesin-Codeine Liq) 100-10 Mg/5 Ml Soln 10 ML PO Q6H Y for COUGH for 7 Days, #1 BOTTLE 0 Refills Prov: Angel Gonzalez MD 12/10/17 Disposition: 01 DISCHARGE HOME Condition: Stable Angel Gonzalez MD Dec 10, 2017 09:27
[2017-12-10] MEDS ORDERED: DILTIAZEM HCL 25 MG/5 ML VIAL IV ONE (09:30)
[2017-12-10] MEDS ORDERED: ALUMINUM/MAGNESIUM/SIMETH 30 ML CUP PO ONE (09:30)
[2017-12-10] MEDS ORDERED: LIDOCAINE VISCOUS 2% SOLN 15 ML UDC PO ONE (09:30)
[2017-12-10 09:54] LABS: AUTOMATED NEUTROPHIL # 3.4 TH/MM3 (1.8-7.7); BASOPHIL % 0.3 % (0.0-2.0); EOSINOPHIL % 0.4 % (0.0-4.0); HEMATOCRIT 31.7 % (35.0-46.0); HEMOGLOBIN 10.8 GM/DL (11.6-15.3); LYMPH % 17.3 % (9.0-44.0); LYMPHOCYTE # 0.9 TH/MM3 (1.0-4.8); MEAN CELL VOLUME 85.9 FL (80.0-100.0); MEAN CORPUSCULAR HEMOGLOBIN 29.4 PG (27.0-34.0); MEAN CORPUSCULAR HGB CONC 34.2 % (32.0-36.0); MEAN PLATELET VOLUME 8.9 FL (7.0-11.0); MONO % 17.5 % (0.0-8.0); MONOCYTE # 0.9 TH/MM3 (0-0.9); NEUT % 64.5 % (16.0-70.0); PLATELET COUNT 87 TH/MM3 (150-450); RED BLOOD COUNT 3.69 MIL/MM3 (4.00-5.30); RED CELL DISTRIBUTION WIDTH 15.6 % (11.6-17.2); WHITE BLOOD COUNT 5.3 TH/MM3 (4.0-11.0)
[2017-12-10 10:04] VITALS: BP 138/80; PULSE 108; RESP 18; O2SAT 98
[2017-12-10] MEDS: SODIUM CHLORIDE 0.9% FLUSH 10 ML FLUSH IVF PRN ×2 (10:04→11:30)
[2017-12-10 10:13] LABS: BICARBONATE 28.4 MEQ/L (21.0-32.0); CREATININE 2.06 MG/DL (0.50-1.00)
[2017-12-10 10:27] LABS: OVALOCYTES 1+ (NORMAL)
[2017-12-10] MEDS ORDERED: AZIT250T3 PO (10:45)
[2017-12-10] MEDS ORDERED: methylPREDNISolone SOD SUCC 125 MG/2 ML VIAL IV PUSH ONE (10:45)
[2017-12-10] MEDS ORDERED: PRED20 PO (10:45)
[2017-12-10] MEDS ORDERED: GUAI100S5 PO (10:45)
[2017-12-10 11:39] VITALS: BP 131/74
== END 2017-12-10 12:26 | disposition home or self-care (01) ==
LOC: NEPD 08:04
DX: I48.2 Chronic atrial fibrillation (principal); I13.0 Hypertensive heart and chronic kidney disease with heart failure and stage 1 through stage 4 chronic kidney disease, or unspecified chronic kidney disease; R05 Cough; J44.9 Chronic obstructive pulmonary disease, unspecified; E11.22 Type 2 diabetes mellitus with diabetic chronic kidney disease; M81.0 Age-related osteoporosis without current pathological fracture; Z79.01 Long term (current) use of anticoagulants
CPT/HCPCS: 71046; 80048; 85025; 96374; 96375; 99284; J2930

== ENCOUNTER 2017-12-11 16:35 | Inpatient (IN) | payer MEDICARE, MEDICAID ==
[~2017-12-11] VITALS: Ht 149.9 cm; Wt 49.0 kg
[~2017-12-11 16:35] MED LIST changes: +AZIT250T3 PO; +GUAI100S5 PO; +PRED20 PO
[2017-12-11 16:37] VITALS: BP 131/72; PULSE 89; RESP 26; TEMP 98.8; O2SAT 95
[2017-12-11 18:03] VITALS: BP 119/90; PULSE 81; RESP 20; O2SAT 97
[2017-12-11] MEDS ORDERED: SODIUM CHLORIDE 0.9% FLUSH 10 ML FLUSH IVF PRN (18:30)
[2017-12-11 18:47] LABS: AUTOMATED NEUTROPHIL # 5.6 TH/MM3 (1.8-7.7); BASOPHIL % 0.2 % (0.0-2.0); HEMATOCRIT 31.3 % (35.0-46.0); HEMOGLOBIN 10.4 GM/DL (11.6-15.3); LYMPH % 9.3 % (9.0-44.0); LYMPHOCYTE # 0.6 TH/MM3 (1.0-4.8); MEAN CELL VOLUME 90.2 FL (80.0-100.0); MEAN CORPUSCULAR HEMOGLOBIN 30.1 PG (27.0-34.0); MEAN CORPUSCULAR HGB CONC 33.4 % (32.0-36.0); MEAN PLATELET VOLUME 10.7 FL (7.0-11.0); MONO % 9.2 % (0.0-8.0); MONOCYTE # 0.6 TH/MM3 (0-0.9); NEUT % 81.3 % (16.0-70.0); PLATELET COUNT 106 TH/MM3 (150-450); RED BLOOD COUNT 3.47 MIL/MM3 (4.00-5.30); RED CELL DISTRIBUTION WIDTH 15.7 % (11.6-17.2); WHITE BLOOD COUNT 6.9 TH/MM3 (4.0-11.0)
[2017-12-11 19:13] LABS: ALBUMIN 3.5 GM/DL (3.4-5.0); ALKALINE PHOSPHATASE 87 U/L (45-117); ALT (GPT) 28 U/L (10-53); AST (GOT) 30 U/L (15-37); BICARBONATE 24.5 MEQ/L (21.0-32.0); BLOOD UREA NITROGEN 55 MG/DL (7-18); CALCIUM 8.6 MG/DL (8.5-10.1); CHLORIDE 91 MEQ/L (98-107); CREATININE 2.61 MG/DL (0.50-1.00); GLOMERULAR FILTRATION RATE 17 ML/MIN (>89); SODIUM (NA) 127 MEQ/L (136-145); TOTAL BILIRUBIN ADULT 0.7 MG/DL (0.2-1.0); TOTAL PROTEIN 9.5 GM/DL (6.4-8.2)
[2017-12-11 19:19] LABS: GLUCOSE,RANDOM 748 MG/DL (74-106)
--- NOTE | 2017-12-11 19:20 | PD ---
HPI Chief Complaint: Diabetic Time Seen by Provider: 18:23 Travel History International Travel<30 days: No Contact w/Intl Traveler<30days: No Traveled to known affect area: No History of Present Illness HPI The patient is 82 years old and arrives to the ER with the complaint of elevated blood glucose. The history is provided by the daughter who speaks Hungarian and Hungarian and the patient speaks Hungarian. 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 Patient was seen here yesterday with a cough and was discharged with steroids and guaifenesin with codeine. The patient reports feeling much better today with no more coughing however a blood glucose was undetectably high leading to ED evaluation. No polyuria or polydipsia. No headache nausea or vomiting. Patient called the primary care provider who advised ER evaluation. Primary care provider is reported to be Claudia Richard. PFSH Past Medical History Hx Anticoagulant Therapy: Yes (ELIQUIS) Arthritis: Yes Asthma: Yes Atrial Fibrillation: Yes Autoimmune Disease: No Blood Disorders: No Anxiety: No Depression: No Heart Rhythm Problems: Yes Cancer: No Cardiac Catheterization: Yes (2008) Cardiovascular Problems: Yes High Cholesterol: No Chemotherapy: No Chest Pain: Yes Congestive Heart Failure: Yes Cirrhosis: Yes COPD: Yes Diabetes: Yes Patient Takes Glucophage: No Diminished Hearing: No Endocrine: Yes Gastrointestinal Disorders: Yes GERD: Yes Genitourinary: No Headaches: No Hepatitis: Yes (C) Hiatal Hernia: No Heparin Induced Thrombocytopen: No Hypertension: Yes Immune Disorder: Yes (HEP C) Implanted Vascular Access Dvce: Yes Kidney Stones: No Musculoskeletal: Yes (OSTEOPOROSIS) Neurologic: No Psychiatric: No Reproductive: No Respiratory: Yes Migraines: No Myocardial Infarction: Yes (AUG 2014) Radiation Therapy: No Renal Failure: Yes Seizures: No Sickle Cell Disease: No Sleep Apnea: No Thyroid Disease: Yes Ulcer: No Tetanus Vaccination: Unknown Menopausal: Yes : 5 Para: 4 Miscarriage: 1 Past Surgical History Abdominal Surgery: No AICD: No Appendectomy: No Arteriovenous Shunt: No Body Medical Devices: PACEMAKER AND STENTS Cardiac Surgery: Yes (PACEMAKER 2012) Cholecystectomy: Yes Coronary Stent: Yes (x2 2008) Ear Surgery: No Endocrine Surgery: No Eye Surgery: Yes (CATARACT) Genitourinary Surgery: Yes (GALLBLADDER) Gynecologic Surgery: Yes (HYSTERECTOMY) Hysterectomy: Yes Insulin Pump: No Joint Replacement: No Neurologic Surgery: No Oral Surgery: No Pacemaker: Yes Thoracic Surgery: No Other Surgery: Yes (STENTS PLACED) Social History Alcohol Use: No Tobacco Use: No Substance Use: No Allergies-Medications (Allergen,Severity, Reaction): Coded Allergies: penicillin G (Verified Allergy, Severe, Anaphylaxis, 12/11/17) Quinolones (Verified Adverse Reaction, Severe, Confusion, 12/11/17) levofloxacin (Verified Adverse Reaction, Severe, Confusion, 12/11/17) verapamil (Verified Adverse Reaction, Severe, Nausea/Vomiting, 12/11/17) Iodinated Contrast- Oral and IV Dye (Verified Adverse Reaction, Unknown, ) RENAL FAILURE Reported Meds & Prescriptions Reported Meds & Active Scripts Active Azithromycin 250 Mg Tab 250 Mg PO DIRECTED Take 2 tabs (500 mg) on day 1 then 1 tab daily x 4 days. Prednisone 20 Mg Tab 20 Mg PO DAILY 5 Days Guaifenesin-Codeine Liq 100-10 Mg/5 Ml Soln 10 Ml PO Q6H PRN 7 Days Ceftin (Cefuroxime Axetil) 250 Mg Tab 500 Mg PO BID 5 Days Oseltamivir Phosphate 75 Mg Cap 75 Mg PO BID Tessalon Perles (Benzonatate) 100 Mg Cap 100 Mg PO TID PRN Novolin R Inj (Insulin Human Regular) 1,000 Unit/10 Ml Vial 1 Unit SQ Q4HR 30 Days Januvia (Sitagliptin Phosphate) 50 Mg Tab 50 Mg PO BID Oxygen (O2) Device 2 Liter CHRISTIAN.CANULA CONTINUOUS Oxygen Concentrator Portable Gaseous 2 L/min via Nasal Canula Continuous For 99 months Senna Lax (Sennosides) 8.6 Mg Tab 17.2 Mg PO DAILY Reported Metoprolol Tartrate 50 Mg Tab 50 Mg PO BID Bumetanide 1 Mg Tab 1 Mg PO BID Spironolactone 25 Mg Tab 25 Mg PO DAILY Lisinopril 5 Mg Tab 5 Mg PO DAILY Tresiba Flextouch Pen Inj (Insulin Degludec Inj) 300 unit/3 ML Pen 10 Units SQ HS Diltiazem (Diltiazem HCl) 90 Mg Tab 180 Mg PO BID Xopenex Hfa 15 GM Inh (Levalbuterol 15 GM Inh) 45 Mcg/Act Aer 45 Mcg INH Q6HR Shake well before using. (1 puff = 45 mcg) Brovana Neb (Arformoterol Neb) 15 Mcg/2 Ml Vial 1 Nebule NEB BID Maintenance treatment of bronchoconstriction in COPD. Alendronate (Alendronate Sodium) 70 Mg Tab 70 Mg PO Q7D Proair Hfa 8.5 GM Inh (Albuterol Sulfate) 90 Mcg/Act Aer 1 Puff INH BID PRN 108 mcg/actuation Eliquis (Apixaban) 2.5 Mg Tab 2.5 Mg PO BID Zantac (Ranitidine HCl) 150 Mg Tab 150 Mg PO DAILY Levothyroxine (Levothyroxine Sodium) 125 Mcg Tab 125 Mcg PO DAILY Symbicort Inh (Budesonide/Formoterol Fumarate) 160-4.5 Mcg/Act Aero 2 Puff INH BID Review of Systems Except as stated in HPI: all other systems reviewed are Neg General / Constitutional: No: Fever Physical Exam Narrative GENERAL: 82-year-old female no acute distress awake and interactive and answers questions appropriately SKIN: Warm and dry. HEAD: Atraumatic. Normocephalic. EYES: Pupils equal and round. No scleral icterus. No injection or drainage. ENT: No nasal bleeding or discharge. Mucous membranes pink and moist. NECK: Trachea midline. No JVD. CARDIOVASCULAR: Regular rate and rhythm. RESPIRATORY: No accessory muscle use. Clear to auscultation. Breath sounds equal bilaterally. GASTROINTESTINAL: Abdomen soft, non-tender, nondistended. Hepatic and splenic margins not palpable. MUSCULOSKELETAL: Extremities without clubbing, cyanosis, or edema. No obvious deformities. NEUROLOGICAL: Awake and alert. No obvious cranial nerve deficits. Motor grossly within normal limits. Five out of 5 muscle strength in the arms and legs. Normal speech. PSYCHIATRIC: Appropriate mood and affect; insight and judgment normal. Data Data Last Documented VS Vital Signs Date Time Temp Pulse Resp B/P (MAP) Pulse Ox O2 Delivery O2 Flow Rate FiO2 12/11/17 18:03 81 20 119/90 (100) 97 Room Air 12/11/17 16:37 98.8 Orders Orders Complete Blood Count With Diff (12/11/17 18:23) Comprehensive Metabolic Panel (12/11/17 18:23) Beta Hydroxybutyrate (Acetone) (12/11/17 18:23) Blood Glucose (12/11/17 18:23) Blood Glucose (12/11/17 19:23) Ecg Monitoring (12/11/17 18:23) Iv Access Insert/Monitor (12/11/17 18:23) Oximetry (12/11/17 18:23) Sodium Chloride 0.9% Flush (Ns Flush) (12/11/17 18:30) Labs Laboratory Tests Test 12/11/17 18:25 White Blood Count 6.9 TH/MM3 Red Blood Count 3.47 MIL/MM3 Hemoglobin 10.4 GM/DL Hematocrit 31.3 % Mean Corpuscular Volume 90.2 FL Mean Corpuscular Hemoglobin 30.1 PG Mean Corpuscular Hemoglobin Concent 33.4 % Red Cell Distribution Width 15.7 % Platelet Count 106 TH/MM3 Mean Platelet Volume 10.7 FL Neutrophils (%) (Auto) 81.3 % Lymphocytes (%) (Auto) 9.3 % Monocytes (%) (Auto) 9.2 % Eosinophils (%) (Auto) 0.0 % Basophils (%) (Auto) 0.2 % Neutrophils # (Auto) 5.6 TH/MM3 Lymphocytes # (Auto) 0.6 TH/MM3 Monocytes # (Auto) 0.6 TH/MM3 Eosinophils # (Auto) 0.0 TH/MM3 Basophils # (Auto) 0.0 TH/MM3 CBC Comment DIFF FINAL Differential Comment MDM Medical Decision Making Medical Screen Exam Complete: Yes Emergency Medical Condition: Yes Medical Record Reviewed: Yes Differential Diagnosis Steroid side effect, hyperglycemia, DKA Narrative Course Evaluated the Patient Yesterday and Today She Looks Much Better, more alert, speaking full sentences interactive and energetic. Her cough has resolved. There is concern the steroids have caused hyperglycemia and the patient would benefit from insulin and evaluation of chemistry profile. Work up pending at time of dictation and case d/w oncoming provider at 7:00pm. Angel Gonzalez MD Dec 11, 2017 19:20
[2017-12-11] MEDS ORDERED: SODIUM CHLORID 0.9% 500 ML INJ 500 ML IV ONE (19:30)
[2017-12-11] MEDS ORDERED: INSULIN HUMAN REGULAR 1,000 UNITS/10 ML VIAL IV PUSH ONE ×2 (19:30)
--- NOTE | 2017-12-11 19:41 | RADRPT ---
EXAM DATE/TIME: 12/11/2017 19:30 [place] COMPARISON: No previous studies available for comparison. INDICATIONS : Cough MEDICAL HISTORY : Gastroesophageal reflux disease. Congestive heart failure. Myocardialinfarction. CVA. Hypertension. H epatitis C. SURGICAL HISTORY : Cholecystectomy. Hysterectomy. Pacemaker. Cardiac stent ENCOUNTER: Sequela ACUITY: 1 month PAIN SCORE: 0/10 LOCATION: Bilateral chest FINDINGS: No infiltrate, effusion or pneumothorax. Heart size stable, upper limits of normal. Tortuous and atherosclerotic thoracic aorta again seen. Ca rdiac pacer again noted. CONCLUSION: No acute cardiopulmonary disease demonstrated. Lungs remain clear. Ismael Calderón MD on December 11, 2017 at 19:38 Board Certified Radiologist. This report was verified electronically.
[2017-12-11 20:00] VITALS: BP 124/75; PULSE 92; RESP 22; O2SAT 95
[2017-12-11] MEDS ORDERED: ACETAMINOPHEN/HYDROcodone 325 MG/10 MG TAB PO PRN (23:15)
[2017-12-11] MEDS ORDERED: SODIUM CHLORIDE 0.9% FLUSH 10 ML FLUSH IV FLUSH PRN (23:15)
[2017-12-11] MEDS ORDERED: SENNOSIDES 8.6 MG TAB PO PRN (23:15)
[2017-12-11] MEDS ORDERED: MAGNESIUM HYDROXIDE SUSP 30 ML CUP PO PRN (23:15)
[2017-12-11] MEDS ORDERED: GLUCAGON 1 MG/ML VIAL OTHER PRN (23:15)
[2017-12-11] MEDS ORDERED: BISACODYL 10 MG SUPP RECTAL PRN (23:15)
[2017-12-11] MEDS ORDERED: ONDANSETRON HCL 4 MG/2 ML VIAL IVP PRN (23:15)
[2017-12-11] MEDS ORDERED: BENZONATATE 100 MG CAP PO PRN (23:15)
[2017-12-11] MEDS ORDERED: ACETAMINOPHEN 325 MG TAB PO PRN (23:15)
[2017-12-11] MEDS ORDERED: LACTULOSE SYRUP 20 GM/30 ML CUP PO PRN (23:15)
[2017-12-11] MEDS ORDERED: ACETAMINOPHEN/HYDROcodone 325 MG/5 MG TAB PO PRN (23:15)
[2017-12-11] MEDS ORDERED: ALBUTEROL SULFATE 90 MCG/ACT HFA 8 GM INHALER INH PRN (23:15)
[2017-12-11] MEDS ORDERED: DEXTROSE 50% IN WATER 50 ML VIAL(D50) IV PUSH PRN (23:15)
--- NOTE | 2017-12-11 23:15 | PD ---
Physical Exam Date Seen by Provider: Dec 11, 2017 Time Seen by Provider: 19:30 Narrative Transfer of care from Dr. Gonzalez Data Data Last Documented VS Vital Signs Date Time Temp Pulse Resp B/P (MAP) Pulse Ox O2 Delivery O2 Flow Rate FiO2 12/11/17 20:00 92 22 124/75 (91) 95 Room Air 12/11/17 16:37 98.8 Orders Orders Complete Blood Count With Diff (12/11/17 18:23) Comprehensive Metabolic Panel (12/11/17 18:23) Beta Hydroxybutyrate (Acetone) (12/11/17 18:23) Blood Glucose (12/11/17 18:23) Blood Glucose (12/11/17 19:23) Ecg Monitoring (12/11/17 18:23) Iv Access Insert/Monitor (12/11/17 18:23) Oximetry (12/11/17 18:23) Sodium Chloride 0.9% Flush (Ns Flush) (12/11/17 18:30) Insulin Human Regular Inj (Novolin R Inj (12/11/17 19:30) Sodium Chlorid 0.9% 500 Ml Inj (Ns 500 M (12/11/17 19:30) Chest, Single Ap (12/11/17 ) Admit Order (Ed Use Only) (12/11/17 ) Diet 1999 Ada Cons Carb (12/12/17 Breakfast) Activity Oob With Assistance (12/11/17 23:11) Notify Dr: Other (12/11/17 23:11) Labs Laboratory Tests Test 12/11/17 18:25 White Blood Count 6.9 TH/MM3 Red Blood Count 3.47 MIL/MM3 Hemoglobin 10.4 GM/DL Hematocrit 31.3 % Mean Corpuscular Volume 90.2 FL Mean Corpuscular Hemoglobin 30.1 PG Mean Corpuscular Hemoglobin Concent 33.4 % Red Cell Distribution Width 15.7 % Platelet Count 106 TH/MM3 Mean Platelet Volume 10.7 FL Neutrophils (%) (Auto) 81.3 % Lymphocytes (%) (Auto) 9.3 % Monocytes (%) (Auto) 9.2 % Eosinophils (%) (Auto) 0.0 % Basophils (%) (Auto) 0.2 % Neutrophils # (Auto) 5.6 TH/MM3 Lymphocytes # (Auto) 0.6 TH/MM3 Monocytes # (Auto) 0.6 TH/MM3 Eosinophils # (Auto) 0.0 TH/MM3 Basophils # (Auto) 0.0 TH/MM3 CBC Comment DIFF FINAL Differential Comment Blood Urea Nitrogen 55 MG/DL Creatinine 2.61 MG/DL Random Glucose 748 MG/DL Total Protein 9.5 GM/DL Albumin 3.5 GM/DL Calcium Level 8.6 MG/DL Alkaline Phosphatase 87 U/L Aspartate Amino Transf (AST/SGOT) 30 U/L Alanine Aminotransferase (ALT/SGPT) 28 U/L Total Bilirubin 0.7 MG/DL Sodium Level 127 MEQ/L Potassium Level 4.8 MEQ/L Chloride Level 91 MEQ/L Carbon Dioxide Level 24.5 MEQ/L Anion Gap 12 MEQ/L Estimat Glomerular Filtration Rate 17 ML/MIN B-Hydroxybutyrate 0.17 MMOL/L [facility] Medical Record Reviewed: Yes Supervised Visit with SULY: No Interpretation(s) Last Impressions Chest X-Ray 12/11/17 0000 Signed Impressions: Service Date/Time: Monday, December 11, 2017 19:30 - CONCLUSION: No acute cardiopulmonary disease demonstrated. Lungs remain clear. Ismael Calderón MD CBC & BMP Diagram 12/11/17 18:25 Total Protein 9.5 H, Albumin 3.5, Calcium Level 8.6, Alkaline Phosphatase 87, Aspartate Amino Transf (AST/SGOT) 30, Alanine Aminotransferase (ALT/SGPT) 28, Total Bilirubin 0.7 Vital Signs Date Time Temp Pulse Resp B/P (MAP) Pulse Ox O2 Delivery O2 Flow Rate FiO2 12/11/17 20:00 92 22 124/75 (91) 95 Room Air 12/11/17 18:03 81 20 119/90 (100) 97 Room Air 12/11/17 16:37 98.8 89 26 131/72 (91) 95 Room Air Differential Diagnosis Accepted in transfer of care from Dr. Gonzalez please refer to his dictation Narrative Course Accepted in transfer of care from Dr. 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
--- NOTE | 2017-12-11 23:18 | HHI.HP ---
HPI Service [facility] Primary Care Physician BELINDA Lopez Admission Diagnosis hyperglcemia/DM; recent steroid therapy Diagnoses: (1) DM (diabetes mellitus) Diagnosis: Principal (2) COPD (chronic obstructive pulmonary disease) Diagnosis: Principal (3) CHF (congestive heart failure) Diagnosis: Principal (4) Renal insufficiency Diagnosis: Principal Travel History International Travel<30 Days: No Contact w/Intl Traveler <30 Da: No Traveled to Known Affected Are: No History of Present Illness This is an 82-year-old female with a PMH of HTN, A. fib on Eliquis, CHF (Echo w/ EF 60-65%, Severe Pulm HTN >70mmHg), Hepatitic C, COPD, O2 Dependent and DM who was brought to the ER by Daughter secondary to elevated BS. Pt seen in ER on 12/10/17 for cough, fever and congestion, s/p Solu-Medrol 125mg IV and discharged from ER on Prednisone 20mg po qd in addition to Z-pack. Daughter took BS today at home as usual and was >500. Denies fever or chills. On arrival, BP 131/72, HR 89, O2 sat 95% on RA Afebrile. BS 748. Creatinine 2.61 , previously 2.06 on 12/10/17. CXR with no acute findings. Beta hydroxy negative. S/p multiple doses of Insulin in ER w/ persistent hyperglycemia. Review of Systems Except as stated in HPI: all other systems reviewed are Neg ROS: 14 point review of systems otherwise negative. Past Family Social History Past Medical History PMH: HTN, A. fib on Eliquis, CHF (Echo 05/11/17 w/ EF 60-65%, Severe Pulm HTN > 70mmHg), Hepatitic C, COPD, O2 Dependent and DM Past Surgical History PAST SURGICAL HISTORY: Cardiac Stent, Pacemaker, Cholecystectomy, Cataract Surgery, Hysterectomy Allergies: Coded Allergies: penicillin G (Verified Allergy, Severe, Anaphylaxis, 12/11/17) Quinolones (Verified Adverse Reaction, Severe, Confusion, 12/11/17) levofloxacin (Verified Adverse Reaction, Severe, Confusion, 12/11/17) verapamil (Verified Adverse Reaction, Severe, Nausea/Vomiting, 12/11/17) Iodinated Contrast- Oral and IV Dye (Verified Adverse Reaction, Unknown, ) RENAL FAILURE Family History PAST FAMILY HISTORY: Reviewed. No h/o DM or CAD Social History PAST SOCIAL HISTORY: Negative for alcohol, tobacco or drugs Physical Exam Vital Signs Vital Signs Date Time Temp Pulse Resp B/P (MAP) Pulse Ox O2 Delivery O2 Flow Rate FiO2 12/11/17 20:00 92 22 124/75 (91) 95 Room Air 12/11/17 18:03 81 20 119/90 (100) 97 Room Air 12/11/17 16:37 98.8 89 26 131/72 (91) 95 Room Air Physical Exam PE: GENERAL: Very pleasant elderly female in no acute distress. HEENT: PERRLA, EOMI. No scleral icterus or conjunctival pallor. No lid lag or facial droop. CARDIOVASCULAR: Regular rate and rhythm. No obvious murmurs to auscultation. No chest tenderness to palpation. RESPIRATORY: No obvious rhonchi or wheezing. Clear to auscultation. Breath sounds equal bilaterally. GASTROINTESTINAL: Abdomen soft, non-tender, nondistended. BS normal. MUSCULOSKELETAL: Extremities without clubbing, cyanosis, or edema. No obvious deformities. NEUROLOGICAL: Awake, alert and oriented x4. No focal neurologic deficits. Moving both upper and lower extremities spontaneously. Laboratory Laboratory Tests Test 12/11/17 18:25 White Blood Count 6.9 Red Blood Count 3.47 Hemoglobin 10.4 Hematocrit 31.3 Mean Corpuscular Volume 90.2 Mean Corpuscular Hemoglobin 30.1 Mean Corpuscular Hemoglobin Concent 33.4 Red Cell Distribution Width 15.7 Platelet Count 106 Mean Platelet Volume 10.7 Neutrophils (%) (Auto) 81.3 Lymphocytes (%) (Auto) 9.3 Monocytes (%) (Auto) 9.2 Eosinophils (%) (Auto) 0.0 Basophils (%) (Auto) 0.2 Neutrophils # (Auto) 5.6 Lymphocytes # (Auto) 0.6 Monocytes # (Auto) 0.6 Eosinophils # (Auto) 0.0 Basophils # (Auto) 0.0 CBC Comment DIFF FINAL Differential Comment Blood Urea Nitrogen 55 Creatinine 2.61 Random Glucose 748 Total Protein 9.5 Albumin 3.5 Calcium Level 8.6 Alkaline Phosphatase 87 Aspartate Amino Transf (AST/SGOT) 30 Alanine Aminotransferase (ALT/SGPT) 28 Total Bilirubin 0.7 Sodium Level 127 Potassium Level 4.8 Chloride Level 91 Carbon Dioxide Level 24.5 Anion Gap 12 Estimat Glomerular Filtration Rate 17 B-Hydroxybutyrate 0.17 Result Diagram: 12/11/17182412/11/171824 Caprini VTE Risk Assessment Caprini VTE Risk Assessment: Mod/High Risk (score >= 2) Caprini Risk Assessment Model Point Value = 1 Point Value = 2 Point Value = 3 Point Value = 5 Age 41-60 Minor surgery BMI > 25 kg/m2 Swollen legs Varicose veins or History of unexplained or recurrent spontaneous Oral contraceptives or hormone replacement Sepsis (< 1 month) Serious lung disease, including pneumonia (< 1 month) Abnormal pulmonary function Acute myocardial infarction Congestive heart failure (< 1 month) History of inflammatory bowel disease Medical patient at bed rest Age 61-74 Arthroscopic surgery Major open surgery (> 45 min) Laparoscopic surgery (> 45 min) Malignancy Confined to bed (> 72 hours) Immobilizing plaster cast Central venous access Age >= 75 History of VTE Family history of VTE Factor V Leiden Prothrombin [id number] Lupus anticoagulant Anticardiolipin antibodies Elevated serum homocysteine Heparin-induced thrombocytopenia Other congenital or acquired thrombophilia Stroke (< 1 month) Elective arthroplasty Hip, pelvis, or leg fracture Acute spinal cord injury (< 1 month) Prophylaxis Regimen Total Risk Factor Score Risk Level Prophylaxis Regimen 0-1 Low Early ambulation 2 Moderate Order ONE of the following: *Sequential Compression Device (SCD) *Heparin 5000 units SQ BID 3-4 Higher Order ONE of the following medications: *Heparin 5000 units SQ TID *Enoxaparin/Lovenox 40 mg SQ daily (WT < 150 kg, CrCl > 30 mL/min) *Enoxaparin/Lovenox 30 mg SQ daily (WT < 150 kg, CrCl > 10-29 mL/min) *Enoxaparin/Lovenox 30 mg SQ BID (WT < 150 kg, CrCl > 30 mL/min) AND/OR *Sequential Compression Device (SCD) 5 or more Highest Order ONE of the following medications: *Heparin 5000 units SQ TID (Preferred with Epidurals) *Enoxaparin/Lovenox 40 mg SQ daily (WT < 150 kg, CrCl > 30 mL/min) *Enoxaparin/Lovenox 30 mg SQ daily (WT < 150 kg, CrCl > 10-29 mL/min) *Enoxaparin/Lovenox 30 mg SQ BID (WT < 150 kg, CrCl > 30 mL/min) AND *Sequential Compression Device (SCD) Assessment and Plan Problem List: (1) DM (diabetes mellitus) ICD Code: E11.9 - Diabetes mellitus Status: Chronic (2) CHF (congestive heart failure) ICD Code: I50.9 - Heart failure, unspecified Status: Acute (3) COPD (chronic obstructive pulmonary disease) ICD Code: J44.9 - Chronic obstructive pulmonary disease, unspecified Status: Chronic (4) Renal insufficiency ICD Code: N28.9 - Disorder of kidney and ureter, unspecified Status: Acute Assessment and Plan A/P: 1. DM: Uncontrolled secondary to steroids, s/p Solu-Medrol 125mg IV 12/10/17 and Prednisone 20mg qd for acute bronchitis/URI. Hold steroids as stable from respiratory standpoint. BS 748, s/p multiple doses of Insulin in ER w/ persistent hyperglycemia. Start Sliding Scale w/ Accu-Cheks, resume home medications. 2. CHF: Chronic. Diastolic. Echo 05/01/17 w/ EF 60-65%, Severe Pulm HTN > 70mmHg. Monitor I/O, resume home Aldactone/Bumex. 3. COPD: Chronic Respiratory Failure w/ recent exacerbation, hold steroids secondary to uncontrolled DM. DuoNeb prn. O2 Dependent, monitor O2 4. Renal Insufficiency: Acute on Chronic. Creatinine 2.61, previously 2.06 on 12/10/17, caution w/ IVF secondary to CHF. Repeat labs in am 5. DVT Prophylaxis: On Eliquis 6. Social work for d/c planning as needed. 7. Labs/records/imaging reviewed by me, case discussed at length w/ ER physician. Aranza Gomez MD Dec 11, 2017 23:18
[2017-12-12] VITALS (8 sets, daily range): BP systolic 122–165; BP diastolic 59–99; PULSE 62–125; RESP 16–24; TEMP 97.6–99.1; O2SAT 92–95
[2017-12-12] MEDS: SODIUM CHLOR 0.9% 1000 ML INJ 1,000 ML IV SCH ×2 (00:14→22:34)
[2017-12-12] MEDS ORDERED: LEVALBUTEROL INH SCH (06:00)
[2017-12-12] MEDS: LEVOTHYROXINE SODIUM 125 MCG TAB PO SCH (06:09)
[2017-12-12 06:44] LABS: ALBUMIN 3.2 GM/DL (3.4-5.0); ALKALINE PHOSPHATASE 60 U/L (45-117); ALT (GPT) 27 U/L (10-53); AST (GOT) 19 U/L (15-37); BICARBONATE 24.9 MEQ/L (21.0-32.0); BLOOD UREA NITROGEN 44 MG/DL (7-18); CALCIUM 8.4 MG/DL (8.5-10.1); CHLORIDE 105 MEQ/L (98-107); GLOMERULAR FILTRATION RATE 33 ML/MIN (>89); GLUCOSE,RANDOM 306 MG/DL (74-106); SODIUM (NA) 136 MEQ/L (136-145); TOTAL BILIRUBIN ADULT 0.5 MG/DL (0.2-1.0); TOTAL PROTEIN 8.5 GM/DL (6.4-8.2)
[2017-12-12 06:48] LABS: AUTOMATED NEUTROPHIL # 6.6 TH/MM3 (1.8-7.7); BASOPHIL % 0.1 % (0.0-2.0); HEMATOCRIT 29.3 % (35.0-46.0); HEMOGLOBIN 10.2 GM/DL (11.6-15.3); LYMPH % 11.5 % (9.0-44.0); MEAN CELL VOLUME 86.9 FL (80.0-100.0); MEAN CORPUSCULAR HEMOGLOBIN 30.3 PG (27.0-34.0); MEAN CORPUSCULAR HGB CONC 34.8 % (32.0-36.0); MEAN PLATELET VOLUME 9.7 FL (7.0-11.0); MONO % 10.8 % (0.0-8.0); MONOCYTE # 0.9 TH/MM3 (0-0.9); NEUT % 77.6 % (16.0-70.0); PLATELET COUNT 95 TH/MM3 (150-450); RED BLOOD COUNT 3.37 MIL/MM3 (4.00-5.30); RED CELL DISTRIBUTION WIDTH 15.7 % (11.6-17.2); WHITE BLOOD COUNT 8.6 TH/MM3 (4.0-11.0)
[2017-12-12 07:49] LABS: OVALOCYTES 1+ (NORMAL)
[2017-12-12] MEDS: SODIUM CHLORIDE 0.9% FLUSH 10 ML FLUSH IV FLUSH SCH ×2 (07:56→22:28)
[2017-12-12] MEDS: FAMOTIDINE 20 MG TAB PO SCH (08:15)
[2017-12-12] MEDS: SPIRONOLACTONE 25 MG TAB PO SCH (08:15)
[2017-12-12] MEDS: LISINOPRIL 5 MG TAB PO SCH (08:15)
[2017-12-12] MEDS: METOPROLOL TARTRATE 50 MG TAB PO SCH ×2 (08:15→22:26)
[2017-12-12] MEDS: DOCUSATE SODIUM 50 MG/SENNA 8.6 MG TAB PO SCH ×2 (08:27→22:27)
[2017-12-12] MEDS: INSULIN ASPART SUPPLEMENTAL SCALE SQ SCH ×4 (08:27→22:53)
--- NOTE | 2017-12-12 08:32 | HHI.PR ---
Subjective Remarks In bed says she has dry mouth. Nauseated before , now she has no nausea , no vomiting do niarrhea or constipation .BP was noted elevated now better controolled cuff was too large for her arm, discussed with the nurse. Patient denies any abdominal cramps. No chest pain , sob. Objective Vitals Vital Signs Date Time Temp Pulse Resp B/P (MAP) Pulse Ox O2 Delivery O2 Flow Rate FiO2 12/12/17 08:18 125 18 153/98 (116) 94 12/12/17 06:09 98.1 110 18 165/99 (121) 95 12/12/17 01:50 62 18 138/81 (100) 95 Room Air 12/12/17 00:00 94 20 137/85 (102) 94 Room Air 12/11/17 20:00 92 22 124/75 (91) 95 Room Air 12/11/17 18:03 81 20 119/90 (100) 97 Room Air 12/11/17 16:37 98.8 89 26 131/72 (91) 95 Room Air I/O 12/11/17 12/11/17 12/11/17 12/12/17 12/12/17 12/12/17 07:00 15:00 23:00 07:00 15:00 23:00 Intake Total 500 ml Balance 500 ml Intake IV Total 500 ml Result Diagram: 12/12/17 0600 12/12/17 0600 Imaging Last Impressions Chest X-Ray 12/11/17 0000 Signed Impressions: Service Date/Time: Monday, December 11, 2017 19:30 - CONCLUSION: No acute cardiopulmonary disease demonstrated. Lungs remain clear. Ismael Calderón MD Objective Remarks GENERAL: Very pleasant elderly female in no acute distress. CARDIOVASCULAR: Regular rate and rhythm. No obvious murmurs to auscultation. No chest tenderness to palpation. RESPIRATORY: No obvious rhonchi or wheezing. Clear to auscultation. Breath sounds equal bilaterally. GASTROINTESTINAL: Abdomen soft, non-tender, nondistended. BS normal. MUSCULOSKELETAL: Extremities without clubbing, cyanosis, or edema. No obvious deformities. NEUROLOGICAL: Awake, alert and oriented x4. No focal neurologic deficits. Moving both upper and lower extremities spontaneously. A/P Problem List: (1) DM (diabetes mellitus) ICD Code: E11.9 - Diabetes mellitus Status: Chronic (2) CHF (congestive heart failure) ICD Code: I50.9 - Heart failure, unspecified Status: Acute (3) COPD (chronic obstructive pulmonary disease) ICD Code: J44.9 - Chronic obstructive pulmonary disease, unspecified Status: Chronic (4) Renal insufficiency ICD Code: N28.9 - Disorder of kidney and ureter, unspecified Status: Acute Assessment and Plan DM2: Uncontrolled secondary to steroids, s/p Solu-Medrol 125mg IV 12/10/17 and Prednisone 20mg qd for acute bronchitis/URI. Hold steroids as stable from respiratory standpoint. BS 748, on admission.s/p multiple doses of Insulin in ER w/ persistent hyperglycemia. Start Sliding Scale w/ Accu-Cheks, resume home medications. BS better controlled. CHF: Chronic. Diastolic. Not with exacerbation at this time. Echo 05/01/17 w/ EF 60-65%, Severe Pulm HTN >70mmHg. Monitor I/O, resume home Aldactone/Bumex. COPD not with exacerbation. Chronic Respiratory Failure w/ recent exacerbation, hold steroids secondary to uncontrolled DM. DuoNeb prn. O2 Dependent, monitor O2 Renal Insufficiency: Acute on Chronic. Creatinine 2.61, previously 2.06 on , caution w/ IVF secondary to CHF. Monitor kidney function. DVT Prophylaxis: On [employer] for d/c planning as needed. Discussed with the patient, nurse. Fe Wiley MD Dec 12, 2017 08:32
[2017-12-12] MEDS ORDERED: DILTIAZEM HCL 90 MG TAB PO SCH (09:00)
[2017-12-12] MEDS: BUDESONIDE-FORMOTEROL 160/4.5 MCG INHALER INH SCH ×2 (10:28→21:00)
[2017-12-12] MEDS: BUMETANIDE 1 MG TAB PO SCH ×2 (10:29→22:27)
[2017-12-12] MEDS: CEFUROXIME AXETIL 250 MG TAB PO SCH ×2 (10:32→22:26)
[2017-12-12] MEDS: APIXABAN 2.5 MG TABLET PO SCH ×2 (10:33→22:27)
[2017-12-12] MEDS: OSELTAMIVIR PHOSPHATE 75 MG CAP PO SCH ×3 (10:34→23:12)
[2017-12-12] MEDS ORDERED: RESP: ALBUTEROL 2.5 MG/IPRATROPIUM 0.5 MG NEB (SCH) NEB ONE (11:30)
[2017-12-12] MEDS ORDERED: RESP: ALBUTEROL 2.5 MG/IPRATROPIUM 0.5 MG NEB (PRN) NEB (11:30)
[2017-12-12] MEDS ORDERED: INSULIN DEGLUDEC SQ SCH (21:00)
[2017-12-13] VITALS (10 sets, daily range): BP systolic 113–154; BP diastolic 63–96; PULSE 81–133; RESP 18–26; TEMP 98.1–99.4; O2SAT 96–100
[2017-12-13] MEDS ORDERED: FUROSEMIDE 40 MG/4 ML VIAL IV PUSH ONE (02:30)
[2017-12-13] MEDS ORDERED: DILTIAZEM HCL 25 MG/5 ML VIAL IV ONE (03:30)
[2017-12-13] MEDS ORDERED: DILTIAZEM HCL 25 MG/5 ML VIAL IV PUSH ONE (05:00)
[2017-12-13] MEDS ORDERED: DILTIAZEM INJ 125 MG in SODIUM CHLORIDE 0.9% INJ 100 ML IV PRN (05:00)
[2017-12-13] MEDS: LEVOTHYROXINE SODIUM 125 MCG TAB PO SCH (05:35)
[2017-12-13] MEDS: INSULIN ASPART SUPPLEMENTAL SCALE SQ SCH ×4 (08:00→21:00)
[2017-12-13] MEDS ORDERED: DILTIAZEM-CD 180 MG CAP ER PO SCH (09:00)
[2017-12-13] MEDS: DOCUSATE SODIUM 50 MG/SENNA 8.6 MG TAB PO SCH ×2 (09:00→23:24)
[2017-12-13] MEDS: SODIUM CHLORIDE 0.9% FLUSH 10 ML FLUSH IV FLUSH SCH ×2 (09:00→21:00)
[2017-12-13] MEDS: APIXABAN 2.5 MG TABLET PO SCH ×2 (09:00→23:25)
[2017-12-13] MEDS: CEFUROXIME AXETIL 250 MG TAB PO SCH ×2 (09:03→23:24)
[2017-12-13] MEDS: BUMETANIDE 1 MG TAB PO SCH ×2 (09:04→23:25)
[2017-12-13] MEDS: LISINOPRIL 5 MG TAB PO SCH (09:04)
[2017-12-13] MEDS: FAMOTIDINE 20 MG TAB PO SCH (09:04)
[2017-12-13] MEDS: METOPROLOL TARTRATE 50 MG TAB PO SCH ×2 (09:04→23:24)
[2017-12-13] MEDS: SPIRONOLACTONE 25 MG TAB PO SCH (09:04)
[2017-12-13 10:24] LABS: AUTOMATED NEUTROPHIL # 8.2 TH/MM3 (1.8-7.7); BASOPHIL % 0.1 % (0.0-2.0); EOSINOPHIL % 0.1 % (0.0-4.0); HEMOGLOBIN 10.1 GM/DL (11.6-15.3); LYMPH % 15.3 % (9.0-44.0); LYMPHOCYTE # 1.7 TH/MM3 (1.0-4.8); MEAN CELL VOLUME 87.3 FL (80.0-100.0); MEAN CORPUSCULAR HEMOGLOBIN 29.3 PG (27.0-34.0); MEAN CORPUSCULAR HGB CONC 33.6 % (32.0-36.0); MEAN PLATELET VOLUME 9.3 FL (7.0-11.0); MONO % 12.2 % (0.0-8.0); MONOCYTE # 1.4 TH/MM3 (0-0.9); NEUT % 72.3 % (16.0-70.0); PLATELET COUNT 99 TH/MM3 (150-450); RED BLOOD COUNT 3.43 MIL/MM3 (4.00-5.30); RED CELL DISTRIBUTION WIDTH 16.3 % (11.6-17.2); WHITE BLOOD COUNT 11.3 TH/MM3 (4.0-11.0)
[2017-12-13 10:45] LABS: BICARBONATE 28.8 MEQ/L (21.0-32.0); CREATININE 1.41 MG/DL (0.50-1.00)
[2017-12-13 11:09] LABS: OVALOCYTES 1+ (NORMAL)
--- NOTE | 2017-12-13 17:36 | HHI.PR ---
Subjective Remarks Patient seen with assistance of chief controller station. She denies any complaints. Denies any chest pain or shortness of breath. Objective Vital Signs Date Time Temp Pulse Resp B/P (MAP) Pulse Ox O2 Delivery O2 Flow Rate FiO2 12/13/17 16:00 96 12/13/17 16:00 98.1 96 26 114/66 (82) 96 12/13/17 14:00 90 12/13/17 12:00 98.5 82 21 113/63 (80) 100 12/13/17 12:00 82 12/13/17 08:00 98.3 116 25 124/77 (93) 98 12/13/17 08:00 116 12/13/17 07:33 100 Nasal Cannula 2.00 12/13/17 07:00 Nasal Cannula 2.00 98 12/13/17 06:57 133 124/84 12/13/17 06:15 133 12/13/17 06:15 99.3 133 23 124/84 (97) 97 12/13/17 01:44 99.4 18 154/96 (115) 96 12/12/17 20:08 99.1 90 18 145/84 (104) 92 Result Diagram: 12/13/17 0930 12/13/17 0930 Objective Remarks GENERAL: Sitting up in bed. Appears comfortable. SKIN: Warm and dry. HEAD: Normocephalic. EYES: No scleral icterus. No injection or drainage. NECK: Supple, trachea midline. No JVD. CARDIOVASCULAR: Regular rate and rhythm without murmurs, gallops, or rubs. RESPIRATORY: Breath sounds equal bilaterally. No accessory muscle use. GASTROINTESTINAL: Abdomen soft, non-tender, nondistended. MUSCULOSKELETAL: No cyanosis, or edema. BACK: Nontender without obvious deformity. No CVA tenderness. A/P Assessment and Plan //Atrial Fibrillation with RVR. Heart rate improved on diltiazem. Patient will require increased dose of diltiazem. Ordered. Continue to monitor. We can discontinue drip tonight after tonight's dose. //DM2: Uncontrolled secondary to steroids, s/p Solu-Medrol 125mg IV 12/10/17 and Prednisone 20mg qd for acute bronchitis/URI. Hold steroids as stable from respiratory standpoint. BS 748, on admission.s/p multiple doses of Insulin in ER w/ persistent hyperglycemia. Start Sliding Scale w/ Accu-Cheks, resume home medications. BS better controlled. = This appears much improved. Claudia monitor. //CHF: Chronic. Diastolic. Not with exacerbation at this time. Echo 05/01/17 w / EF 60-65%, Severe Pulm HTN >70mmHg. Monitor I/O, resume home Aldactone/ Bumex. //COPD not with exacerbation. Chronic Respiratory Failure w/ recent exacerbation , hold steroids secondary to uncontrolled DM. DuoNeb prn. O2 Dependent, monitor O2 //Renal Insufficiency: Acute on Chronic. Creatinine 2.61, previously 2.06 on , caution w/ IVF secondary to CHF. Monitor kidney function. //DVT Prophylaxis: On Eliquis Discharge Planning Pending improvement/stability in heart rate. Hussein Collazo MD Dec 13, 2017 17:36
[2017-12-13] MEDS ORDERED: DILTIAZEM-CD 120 MG CAP ER PO ONE (18:00)
[2017-12-13] MEDS: BUDESONIDE-FORMOTEROL 160/4.5 MCG INHALER INH SCH ×2 (21:00→23:23)
[2017-12-13] MEDS: OSELTAMIVIR PHOSPHATE 75 MG CAP PO SCH (23:25)
[2017-12-14] VITALS (7 sets, daily range): BP systolic 108–162; BP diastolic 62–78; PULSE 79–101; RESP 16–25; TEMP 98–98.7; O2SAT 94–100
[2017-12-14 05:57] LABS: AUTOMATED NEUTROPHIL # 4.5 TH/MM3 (1.8-7.7); BASOPHIL % 0.3 % (0.0-2.0); EOSINOPHIL % 0.4 % (0.0-4.0); HEMATOCRIT 33.2 % (35.0-46.0); HEMOGLOBIN 11.4 GM/DL (11.6-15.3); LYMPHOCYTE # 1.7 TH/MM3 (1.0-4.8); MEAN CELL VOLUME 85.9 FL (80.0-100.0); MEAN CORPUSCULAR HEMOGLOBIN 29.6 PG (27.0-34.0); MEAN CORPUSCULAR HGB CONC 34.4 % (32.0-36.0); MEAN PLATELET VOLUME 9.3 FL (7.0-11.0); MONO % 13.3 % (0.0-8.0); PLATELET COUNT 96 TH/MM3 (150-450); RED BLOOD COUNT 3.87 MIL/MM3 (4.00-5.30); RED CELL DISTRIBUTION WIDTH 16.2 % (11.6-17.2); WHITE BLOOD COUNT 7.3 TH/MM3 (4.0-11.0)
[2017-12-14] MEDS: LEVOTHYROXINE SODIUM 125 MCG TAB PO SCH (06:14)
[2017-12-14 06:26] LABS: BICARBONATE 32.8 MEQ/L (21.0-32.0); CALCIUM 8.9 MG/DL (8.5-10.1); CREATININE 1.58 MG/DL (0.50-1.00); MAGNESIUM 1.5 MG/DL (1.5-2.5)
[2017-12-14 06:27] LABS: PHOSPHORUS 3.5 MG/DL (2.5-4.9)
[2017-12-14 08:03] LABS: OVALOCYTES 1+ (NORMAL)
[2017-12-14] MEDS: BUDESONIDE-FORMOTEROL 160/4.5 MCG INHALER INH SCH ×2 (08:41→21:16)
[2017-12-14] MEDS: INSULIN ASPART SUPPLEMENTAL SCALE SQ SCH ×4 (08:42→21:00)
[2017-12-14] MEDS: LISINOPRIL 5 MG TAB PO SCH (08:43)
[2017-12-14] MEDS: SODIUM CHLORIDE 0.9% FLUSH 10 ML FLUSH IV FLUSH SCH ×2 (08:43→21:00)
[2017-12-14] MEDS: METOPROLOL TARTRATE 50 MG TAB PO SCH ×2 (08:43→21:12)
[2017-12-14] MEDS: BUMETANIDE 1 MG TAB PO SCH ×2 (08:43→21:11)
[2017-12-14] MEDS: FAMOTIDINE 20 MG TAB PO SCH (08:43)
[2017-12-14] MEDS: APIXABAN 2.5 MG TABLET PO SCH ×2 (08:44→21:13)
[2017-12-14] MEDS: CEFUROXIME AXETIL 250 MG TAB PO SCH ×2 (08:44→21:11)
[2017-12-14] MEDS: DOCUSATE SODIUM 50 MG/SENNA 8.6 MG TAB PO SCH ×2 (08:44→21:11)
[2017-12-14] MEDS: SPIRONOLACTONE 25 MG TAB PO SCH (08:44)
[2017-12-14] MEDS: OSELTAMIVIR PHOSPHATE 75 MG CAP PO SCH ×2 (08:44→21:12)
[2017-12-14] MEDS ORDERED: DILTIAZEM-CD 300 MG CAP ER PO SCH (09:00)
[2017-12-14] MEDS ORDERED: METOPROLOL TARTRATE 25 MG TAB PO ONE (09:45)
[2017-12-14] MEDS: DILTIAZEM-CD 240 MG CAP ER PO SCH (21:12)
--- NOTE | 2017-12-14 22:53 | HHI.PR ---
Subjective Remarks Patient seen today around noon using over the phone domestic travel consultant. She denies any chest pain or shortness of breath. Objective Vital Signs Date Time Temp Pulse Resp B/P (MAP) Pulse Ox O2 Delivery O2 Flow Rate FiO2 12/14/17 20:00 98.0 101 20 131/63 (85) 95 12/14/17 20:00 101 12/14/17 19:00 95 Nasal Cannula 2.00 12/14/17 16:00 98.4 82 25 114/62 (79) 100 12/14/17 12:00 98.2 81 24 108/68 (81) 98 12/14/17 09:14 97 Nasal Cannula 2.00 12/14/17 08:00 95 12/14/17 08:00 98.0 95 25 127/75 (92) 94 12/14/17 07:00 94 Nasal Cannula 2.00 12/14/17 04:00 98.2 98 16 162/78 (106) 96 12/14/17 00:00 98.7 79 20 150/76 (100) 97 I/O 12/13/17 12/13/17 12/13/17 12/14/17 12/14/17 12/14/17 07:00 15:00 23:00 07:00 15:00 23:00 Intake Total 540 ml 130 ml 1200 ml Balance 540 ml 130 ml 1200 ml Intake Oral 540 ml 1200 ml IV Total 130 ml # Voids 3 1 4 # Bowel Movements 1 0 1 Result Diagram: 12/14/17 0456 12/14/17 0454 Objective Remarks GENERAL: Sitting up in bed. Appears comfortable.breathing comfortably. SKIN: Warm and dry. HEAD: Normocephalic. EYES: No scleral icterus. No injection or drainage. NECK: Supple, trachea midline. No JVD. CARDIOVASCULAR: Regular rate and rhythm without murmurs, gallops, or rubs. RESPIRATORY: Breath sounds equal bilaterally. No accessory muscle use. GASTROINTESTINAL: Abdomen soft, non-tender, nondistended. MUSCULOSKELETAL: No cyanosis, or edema. BACK: Nontender without obvious deformity. No CVA tenderness. A/P Assessment and Plan //Atrial Fibrillation with RVR. Heart rate improved on diltiazem. Patient will require increased dose of diltiazem. Ordered. Continue to monitor. We can discontinue drip tonight after tonight's dose. = Looked back at patient's previous admissions. Patient used to be on diltiazem 180 mg 3 times daily, as well as metoprolol twice daily. Have adjusted medications. Transfer to floor. Discontinued diltiazem drip. //DM2: Uncontrolled secondary to steroids, s/p Solu-Medrol 125mg IV 12/10/17 and Prednisone 20mg qd for acute bronchitis/URI. Hold steroids as stable from respiratory standpoint. BS 748, on admission.s/p multiple doses of Insulin in ER w/ persistent hyperglycemia. Start Sliding Scale w/ Accu-Cheks, resume home medications. BS better controlled. = This appears much improved. Continue to monitor. //CHF: Chronic. Diastolic. Not with exacerbation at this time. Echo 05/01/17 w / EF 60-65%, Severe Pulm HTN >70mmHg. Monitor I/O, resume home Aldactone/ Bumex. = Patient appears euvolemic. Continue current medications. //COPD not with exacerbation. Chronic Respiratory Failure w/ recent exacerbation , hold steroids secondary to uncontrolled DM. DuoNeb prn. O2 Dependent, monitor O2 //Renal Insufficiency: Acute on Chronic. Creatinine 2.61, previously 2.06 on , caution w/ IVF secondary to CHF. Monitor kidney function. = Creatinine 1.58 today. Slightly worsened but around 3 be . Continue to monitor. //DVT Prophylaxis: On Eliquis Discharge Planning Possible discharge home tomorrow with no PT. Home oxygen evaluation pending. Case management consult ordered yesterday. Hussein Collazo MD Dec 14, 2017 22:53
--- NOTE | 2017-12-14 22:56 | HHI.FF ---
Face to Face Verification Diagnosis: (1) Asthma exacerbation (2) CHF exacerbation (3) DM (diabetes mellitus) Home Health Nursing Order: Medical education Diabetic education CHF education Instructions: patient will need home health nurse for medication management. Patient speaks Nigerien, will need Nigerien speaking nurse or automobile taillight assembler. I have seen patient Toshia Ortiz on 12/14/17. My clinical findings support the need for the requested home health care services because: Med compliance is questionable Limited ability to care for self I certify that my clinical findings support that this patient is homebound because: Hx COPD- exertion dyspnea/weakness Unsafe to leave home unassisted Hussein Collazo MD Dec 14, 2017 22:56
[2017-12-15] VITALS (11 sets, daily range): BP systolic 102–133; BP diastolic 53–75; PULSE 63–82; RESP 16–28; TEMP 98.3–99; O2SAT 90–100
[2017-12-15 05:22] LABS: AUTOMATED NEUTROPHIL # 5.5 TH/MM3 (1.8-7.7); BASOPHIL % 0.5 % (0.0-2.0); EOSINOPHIL # 0.1 TH/MM3 (0-0.4); EOSINOPHIL % 0.6 % (0.0-4.0); HEMATOCRIT 32.7 % (35.0-46.0); HEMOGLOBIN 11.3 GM/DL (11.6-15.3); LYMPHOCYTE # 2.1 TH/MM3 (1.0-4.8); MEAN CELL VOLUME 86.4 FL (80.0-100.0); MEAN CORPUSCULAR HEMOGLOBIN 29.7 PG (27.0-34.0); MEAN CORPUSCULAR HGB CONC 34.4 % (32.0-36.0); MEAN PLATELET VOLUME 9.5 FL (7.0-11.0); MONO % 12.7 % (0.0-8.0); MONOCYTE # 1.1 TH/MM3 (0-0.9); NEUT % 62.2 % (16.0-70.0); PLATELET COUNT 107 TH/MM3 (150-450); RED BLOOD COUNT 3.78 MIL/MM3 (4.00-5.30); RED CELL DISTRIBUTION WIDTH 15.8 % (11.6-17.2); WHITE BLOOD COUNT 8.9 TH/MM3 (4.0-11.0)
[2017-12-15 05:57] LABS: ALBUMIN 2.7 GM/DL (3.4-5.0); BICARBONATE 32.6 MEQ/L (21.0-32.0); BLOOD UREA NITROGEN 47 MG/DL (7-18); CALCIUM 8.3 MG/DL (8.5-10.1); CHLORIDE 97 MEQ/L (98-107); CREATININE 2.17 MG/DL (0.50-1.00); GLOMERULAR FILTRATION RATE 22 ML/MIN (>89); GLUCOSE,RANDOM 224 MG/DL (74-106); MAGNESIUM 1.4 MG/DL (1.5-2.5); PHOSPHORUS 3.8 MG/DL (2.5-4.9); SODIUM (NA) 135 MEQ/L (136-145)
[2017-12-15] MEDS: LEVOTHYROXINE SODIUM 125 MCG TAB PO SCH (06:29)
[2017-12-15] MEDS: INSULIN ASPART SUPPLEMENTAL SCALE SQ SCH ×4 (08:00→20:33)
[2017-12-15] MEDS: DOCUSATE SODIUM 50 MG/SENNA 8.6 MG TAB PO SCH ×2 (08:39→20:26)
[2017-12-15] MEDS: SPIRONOLACTONE 25 MG TAB PO SCH (08:39)
[2017-12-15] MEDS: OSELTAMIVIR PHOSPHATE 75 MG CAP PO SCH ×2 (08:39→20:25)
[2017-12-15] MEDS: METOPROLOL TARTRATE 50 MG TAB PO SCH ×2 (08:39→20:26)
[2017-12-15] MEDS: FAMOTIDINE 20 MG TAB PO SCH (08:39)
[2017-12-15] MEDS: DILTIAZEM-CD 240 MG CAP ER PO SCH ×2 (08:39→20:32)
[2017-12-15] MEDS: BUMETANIDE 1 MG TAB PO SCH (08:39)
[2017-12-15] MEDS: CEFUROXIME AXETIL 250 MG TAB PO SCH ×2 (08:39→20:25)
[2017-12-15] MEDS: LISINOPRIL 5 MG TAB PO SCH (08:39)
[2017-12-15] MEDS: SODIUM CHLORIDE 0.9% FLUSH 10 ML FLUSH IV FLUSH SCH ×2 (08:40→20:37)
[2017-12-15] MEDS: BUDESONIDE-FORMOTEROL 160/4.5 MCG INHALER INH SCH ×2 (08:40→20:38)
[2017-12-15] MEDS: APIXABAN 2.5 MG TABLET PO SCH ×2 (08:40→20:26)
[2017-12-15 16:05] LABS: HEMOGLOBIN A1C 8.2 % (4.3-6.0)
[2017-12-15] MEDS ORDERED: SODIUM CHLOR 0.9% 1000 ML INJ 1,000 ML IV SCH (17:00)
--- NOTE | 2017-12-15 17:05 | HHI.PR ---
Subjective Remarks Patient seen using steam pan sponger over the phone. Says she is feeling all right. Denies any chest pain or shortness of breath. Objective Vital Signs Date Time Temp Pulse Resp B/P (MAP) Pulse Ox O2 Delivery O2 Flow Rate FiO2 12/15/17 16:03 98.8 63 18 109/55 (73) 97 12/15/17 12:35 3.00 12/15/17 12:18 98.4 75 18 109/71 (84) 90 12/15/17 10:00 99 Nasal Cannula 3.00 12/15/17 08:49 78 12/15/17 08:28 98.4 69 18 102/53 (69) 100 12/15/17 07:33 Nasal Cannula 2.00 98 12/15/17 04:02 98.3 66 16 122/56 (78) 98 12/15/17 04:00 98.9 65 21 108/61 (77) 100 12/15/17 00:00 99.0 82 28 133/75 (94) 97 12/14/17 20:00 98.0 101 20 131/63 (85) 95 12/14/17 20:00 101 12/14/17 19:00 95 Nasal Cannula 2.00 I/O 12/14/17 12/14/17 12/14/17 12/15/17 12/15/17 12/15/17 07:00 15:00 23:00 07:00 15:00 23:00 Intake Total 130 ml 1200 ml 240 ml Balance 130 ml 1200 ml 240 ml Intake Oral 1200 ml 240 ml IV Total 130 ml # Voids 1 4 1 2 # Bowel Movements 0 1 0 0 Result Diagram: 12/15/17 0505 12/15/17 0505 Objective Remarks GENERAL: Sitting up in bed. Appears comfortable. breathing comfortably. No change on exam SKIN: Warm and dry. HEAD: Normocephalic. EYES: No scleral icterus. No injection or drainage. NECK: Supple, trachea midline. No JVD. CARDIOVASCULAR: Regular rate and rhythm without murmurs, gallops, or rubs. RESPIRATORY: Breath sounds equal bilaterally. No accessory muscle use. GASTROINTESTINAL: Abdomen soft, non-tender, nondistended. MUSCULOSKELETAL: No cyanosis, or edema. BACK: Nontender without obvious deformity. No CVA tenderness. A/P Assessment and Plan //Atrial Fibrillation with RVR. Heart rate improved on diltiazem. Patient will require increased dose of diltiazem. Ordered. Continue to monitor. We can discontinue drip tonight after tonight's dose. = Looked back at patient's previous admissions. Patient used to be on diltiazem 180 mg 3 times daily, as well as metoprolol twice daily. Have adjusted medications. Transfer to floor. Discontinued diltiazem drip. = heart rate controlled on current medication regimen. Appears to be at pacer backup rate //DM2: Uncontrolled secondary to steroids, s/p Solu-Medrol 125mg IV 12/10/17 and Prednisone 20mg qd for acute bronchitis/URI. Hold steroids as stable from respiratory standpoint. BS 748, on admission.s/p multiple doses of Insulin in ER w/ persistent hyperglycemia. Start Sliding Scale w/ Accu-Cheks, resume home medications. BS better controlled. = This appears much improved. Continue to monitor. = Glucose still elevated up into the 200s. Add Levemir twice daily. Diabetic education pending. //CHF: Chronic. Diastolic. Not with exacerbation at this time. Echo 05/01/17 w / EF 60-65%, Severe Pulm HTN >70mmHg. Monitor I/O, resume home Aldactone/ Bumex. = Patient appears euvolemic. Continue current medications. //COPD not with exacerbation. Chronic Respiratory Failure w/ recent exacerbation , hold steroids secondary to uncontrolled DM. DuoNeb prn. O2 Dependent, monitor O2 //Renal Insufficiency: Acute on Chronic. Creatinine 2.61, previously 2.06 on , caution w/ IVF secondary to CHF. Monitor kidney function. = Creatinine 2.17 today, having from yesterday. BNP 232. 1050 mL fluid bolus and low-dose maintenance fluids. Hold lisinopril, hold diuretics for now. -Plan restart diuretics tomorrow. Continue to monitor. //DVT Prophylaxis: On Eliquis Discharge Planning Possible discharge home tomorrow with no PT. will need improvement in kidney function. Home oxygen evaluation pending. Case management consult ordered yesterday. Hussein Collazo MD Dec 15, 2017 17:05
[2017-12-15] MEDS: INSULIN DETEMIR 100 UNITS/ML VIAL SQ SCH (20:26)
--- NOTE | 2017-12-15 21:47 | EKG ---
Date Performed: 12/15/2017 Time Performed: 20:21:36 PTAGE: 82 years EKG: ATRIAL FIBRILLATION WITH Ventricular pacemaker NONSPECIFIC ST & T-WAVE ABNORMALITY ABNORMAL RHYTHM ECG No significant change from prior electrocardiogram. PREVIOUS TRACING : 11/21/2017 11.52 DOCTOR: Clarence Wallace Interpretating Date/Time 12/15/2017 21:46:27
[2017-12-16 00:31] VITALS: BP 108/56; PULSE 69; RESP 16; TEMP 98.2; O2SAT 100
[2017-12-16 04:05] VITALS: BP 114/59; PULSE 80; RESP 20; TEMP 96.6; O2SAT 100
[2017-12-16] MEDS: LEVOTHYROXINE SODIUM 125 MCG TAB PO SCH (05:49)
[2017-12-16 07:05] LABS: AUTOMATED NEUTROPHIL # 4.8 TH/MM3 (1.8-7.7); BASOPHIL % 0.2 % (0.0-2.0); EOSINOPHIL # 0.1 TH/MM3 (0-0.4); EOSINOPHIL % 1.5 % (0.0-4.0); HEMATOCRIT 29.8 % (35.0-46.0); HEMOGLOBIN 10.3 GM/DL (11.6-15.3); LYMPH % 23.1 % (9.0-44.0); LYMPHOCYTE # 1.8 TH/MM3 (1.0-4.8); MEAN CORPUSCULAR HEMOGLOBIN 30.1 PG (27.0-34.0); MEAN CORPUSCULAR HGB CONC 34.6 % (32.0-36.0); MEAN PLATELET VOLUME 9.6 FL (7.0-11.0); MONO % 14.1 % (0.0-8.0); MONOCYTE # 1.1 TH/MM3 (0-0.9); NEUT % 61.1 % (16.0-70.0); PLATELET COUNT 105 TH/MM3 (150-450); RED BLOOD COUNT 3.43 MIL/MM3 (4.00-5.30); RED CELL DISTRIBUTION WIDTH 15.3 % (11.6-17.2); WHITE BLOOD COUNT 7.9 TH/MM3 (4.0-11.0)
[2017-12-16 07:12] LABS: ALBUMIN 2.6 GM/DL (3.4-5.0); BICARBONATE 30.8 MEQ/L (21.0-32.0); CALCIUM 8.1 MG/DL (8.5-10.1); CREATININE 1.79 MG/DL (0.50-1.00); MAGNESIUM 1.7 MG/DL (1.5-2.5); PHOSPHORUS 2.8 MG/DL (2.5-4.9)
[2017-12-16 08:00] VITALS: BP 125/56; PULSE 69; RESP 21; TEMP 97.8; O2SAT 100
[2017-12-16] MEDS: INSULIN ASPART SUPPLEMENTAL SCALE SQ SCH (08:00)
[2017-12-16 08:58] VITALS: PULSE 68
[2017-12-16] MEDS: FAMOTIDINE 20 MG TAB PO SCH (09:00)
[2017-12-16] MEDS: BUDESONIDE-FORMOTEROL 160/4.5 MCG INHALER INH SCH (09:00)
[2017-12-16] MEDS: DILTIAZEM-CD 240 MG CAP ER PO SCH (09:00)
[2017-12-16] MEDS: INSULIN DETEMIR 100 UNITS/ML VIAL SQ SCH (09:00)
[2017-12-16] MEDS: CEFUROXIME AXETIL 250 MG TAB PO SCH (09:11)
[2017-12-16] MEDS: OSELTAMIVIR PHOSPHATE 75 MG CAP PO SCH (09:12)
[2017-12-16] MEDS: APIXABAN 2.5 MG TABLET PO SCH (09:12)
[2017-12-16] MEDS: SODIUM CHLORIDE 0.9% FLUSH 10 ML FLUSH IV FLUSH SCH (09:12)
[2017-12-16] MEDS: DOCUSATE SODIUM 50 MG/SENNA 8.6 MG TAB PO SCH (09:12)
[2017-12-16] MEDS: METOPROLOL TARTRATE 50 MG TAB PO SCH (09:12)
[2017-12-16] MEDS ORDERED: LISI2.5T3 PO (10:12)
[2017-12-16] MEDS ORDERED: SPIR25TA PO (10:12)
[2017-12-16] MEDS ORDERED: DILT240C44 PO (10:12)
[2017-12-16] MEDS ORDERED: BUME0.5T PO (10:12)
[2017-12-16 12:00] VITALS: BP 123/100; PULSE 76; RESP 24; TEMP 97.4; O2SAT 100
[2017-12-16 12:20] VITALS: O2SAT 100
--- NOTE | 2017-12-16 12:30 | HHI.PR ---
Subjective Remarks Patient seen with assistance of over the phone administrative volunteer. Says she is feeling well. Denies any chest pain or shortness of breath. Says she wants to go home. She has oxygen at home. I discussed also with her daughter who will be coming to pick her up. Objective Vital Signs Date Time Temp Pulse Resp B/P (MAP) Pulse Ox O2 Delivery O2 Flow Rate FiO2 12/16/17 08:58 68 12/16/17 08:00 97.8 69 21 125/56 (79) 100 12/16/17 07:39 Nasal Cannula 2.00 98 12/16/17 04:05 96.6 80 20 114/59 (77) 100 12/16/17 00:31 98.2 69 16 108/56 (73) 100 12/16/17 00:08 Nasal Cannula 2.00 12/15/17 20:31 98.8 75 22 108/62 (77) 96 12/15/17 20:18 98 Nasal Cannula 3.00 12/15/17 20:00 74 12/15/17 16:03 98.8 63 18 109/55 (73) 97 12/15/17 12:35 3.00 I/O 12/15/17 12/15/17 12/15/17 12/16/17 12/16/17 12/16/17 07:00 15:00 23:00 07:00 15:00 23:00 Intake Total 240 ml 332 ml 60 ml 42 ml Output Total 0 ml Balance 240 ml 332 ml 60 ml 42 ml Intake Oral 240 ml 60 ml IV Total 332 ml 42 ml Output Urine Total 0 ml # Voids 1 2 1 # Bowel Movements 0 0 Result Diagram: 12/16/17 0521 12/16/17 0521 Objective Remarks GENERAL: Sitting up in chair Appears comfortable. breathing comfortably. SKIN: Warm and dry. HEAD: Normocephalic. EYES: No scleral icterus. No injection or drainage. NECK: Supple, trachea midline. No JVD. CARDIOVASCULAR: Regular rate and rhythm without murmurs, gallops, or rubs. RESPIRATORY: Breath sounds equal bilaterally. No accessory muscle use. GASTROINTESTINAL: Abdomen soft, non-tender, nondistended. MUSCULOSKELETAL: No cyanosis, or edema. BACK: Nontender without obvious deformity. No CVA tenderness. A/P Assessment and Plan //Atrial Fibrillation with RVR. Heart rate improved on diltiazem. Patient will require increased dose of diltiazem. Ordered. Continue to monitor. We can discontinue drip tonight after tonight's dose. = Looked back at patient's previous admissions. Patient used to be on diltiazem 180 mg 3 times daily, as well as metoprolol twice daily. Have adjusted medications. Transfer to floor. Discontinued diltiazem drip. = heart rate controlled on current medication regimen. Appears to be at pacer backup rate = 12/16. Heart rate controlled in the 60s. Follow-up with cardiology as outpatient. //DM2: Uncontrolled secondary to steroids, s/p Solu-Medrol 125mg IV 12/10/17 and Prednisone 20mg qd for acute bronchitis/URI. Hold steroids as stable from respiratory standpoint. BS 748, on admission.s/p multiple doses of Insulin in ER w/ persistent hyperglycemia. Start Sliding Scale w/ Accu-Cheks, resume home medications. BS better controlled. = This appears much improved. Continue to monitor. = Glucose still elevated up into the 200s. Add Levemir twice daily. Diabetic education pending. = 12/16. Lengthy discussion with daughter. Hematoma A1c 8.2. I'm confident that her diabetes will be well controlled at home, as long she doesn't get steroids.. //CHF: Chronic. Diastolic. Not with exacerbation at this time. Echo 05/01/17 w / EF 60-65%, Severe Pulm HTN >70mmHg. Monitor I/O, resume home Aldactone/ Bumex. = slightly dehydrated yesterday. We will slightly decrease diuretics. Decrease lisinopril dose as well. Follow-up with cardiology as outpatient. //COPD not with exacerbation. Chronic Respiratory Failure w/ recent exacerbation , hold steroids secondary to uncontrolled DM. DuoNeb prn. O2 Dependent, monitor O2 //Renal Insufficiency: Acute on Chronic. Creatinine 2.61, previously 2.06 on , caution w/ IVF secondary to CHF. Monitor kidney function. = Creatinine 2.17 today, having from yesterday. BNP 232. 1050 mL fluid bolus and low-dose maintenance fluids. Hold lisinopril, hold diuretics for now. -Plan restart diuretics tomorrow. Continue to monitor. = 12/16. Creatinine 1.79, improved from yesterday. Discontinue IV fluids. Start on half dose of diuretics tonight with half dose of Bumex. Cussed with daughter //DVT Prophylaxis: On Eliquis Discharge Planning Discharge home today with home health for medication management. Follow-up with cardiology as outpatient.. Hussein Collazo MD Dec 16, 2017 12:29
[2017-12-16] MEDS ORDERED: METO-309 PO (12:36)
--- NOTE | 2017-12-16 12:39 | HHI.DS ---
Discharge Summary Admission Date Dec 13, 2017 at 06:27 Discharge Date: Dec 16, 2017 Admitting Diagnosis hyperglcemia/DM; recent steroid therapy (1) DM (diabetes mellitus) ICD Code: E11.9 - Diabetes mellitus Status: Chronic (2) CHF (congestive heart failure) ICD Code: I50.9 - Heart failure, unspecified Status: Acute (3) COPD (chronic obstructive pulmonary disease) ICD Code: J44.9 - Chronic obstructive pulmonary disease, unspecified Status: Chronic (4) Renal insufficiency ICD Code: N28.9 - Disorder of kidney and ureter, unspecified Status: Acute Procedures No invasive procedures Brief History - From Admission This is an 82-year-old female with a PMH of HTN, A. fib on Eliquis, CHF (Echo w/ EF 60-65%, Severe Pulm HTN >70mmHg), Hepatitic C, COPD, O2 Dependent and DM who was brought to the ER by Daughter secondary to elevated BS. Pt seen in ER on 12/10/17 for cough, fever and congestion, s/p Solu-Medrol 125mg IV and discharged from ER on Prednisone 20mg po qd in addition to Z-pack. Daughter took BS today at home as usual and was >500. Denies fever or chills. On arrival, BP 131/72, HR 89, O2 sat 95% on RA Afebrile. BS 748. Creatinine 2.61 , previously 2.06 on 12/10/17. CXR with no acute findings. Beta hydroxy negative. S/p multiple doses of Insulin in ER w/ persistent hyperglycemia. CBC/BMP: 12/16/17 0521 12/16/17 0521 Significant Findings Laboratory Tests Test 12/14/17 04:54 12/14/17 04:56 12/15/17 05:05 12/15/17 11:40 Blood Urea Nitrogen 36 MG/DL (7-18) 47 MG/DL (7-18) Creatinine 1.58 MG/DL (0.50-1.00) 2.17 MG/DL (0.50-1.00) Random Glucose 134 MG/DL (74-106) 224 MG/DL (74-106) Albumin 3.0 GM/DL (3.4-5.0) 2.7 GM/DL (3.4-5.0) Potassium Level 3.4 MEQ/L (3.5-5.1) Carbon Dioxide Level 32.8 MEQ/L (21.0-32.0) 32.6 MEQ/L (21.0-32.0) Estimat Glomerular Filtration Rate 31 ML/MIN (>89) 22 ML/MIN (>89) Red Blood Count 3.87 MIL/MM3 (4.00-5.30) 3.78 MIL/MM3 (4.00-5.30) Hemoglobin 11.4 GM/DL (11.6-15.3) 11.3 GM/DL (11.6-15.3) Hematocrit 33.2 % (35.0-46.0) 32.7 % (35.0-46.0) Platelet Count 96 TH/MM3 (150-450) 107 TH/MM3 (150-450) Monocytes (%) (Auto) 13.3 % (0.0-8.0) 12.7 % (0.0-8.0) Monocytes # (Auto) 1.0 TH/MM3 (0-0.9) 1.1 TH/MM3 (0-0.9) Platelet Estimate LOW (NORMAL) Ovalocytes 1+ (NORMAL) Calcium Level 8.3 MG/DL (8.5-10.1) Magnesium Level 1.4 MG/DL (1.5-2.5) Sodium Level 135 MEQ/L (136-145) Chloride Level 97 MEQ/L (98-107) Hemoglobin A1c 8.2 % (4.3-6.0) B-Type Natriuretic Peptide 232 PG/ML (0-100) Test 12/16/17 05:21 Red Blood Count 3.43 MIL/MM3 (4.00-5.30) Hemoglobin 10.3 GM/DL (11.6-15.3) Hematocrit 29.8 % (35.0-46.0) Platelet Count 105 TH/MM3 (150-450) Monocytes (%) (Auto) 14.1 % (0.0-8.0) Monocytes # (Auto) 1.1 TH/MM3 (0-0.9) Blood Urea Nitrogen 48 MG/DL (7-18) Creatinine 1.79 MG/DL (0.50-1.00) Random Glucose 172 MG/DL (74-106) Albumin 2.6 GM/DL (3.4-5.0) Calcium Level 8.1 MG/DL (8.5-10.1) Estimat Glomerular Filtration Rate 27 ML/MIN (>89) Imaging Last Impressions Chest X-Ray 12/11/17 0000 Signed Impressions: Service Date/Time: Monday, December 11, 2017 19:30 - CONCLUSION: No acute cardiopulmonary disease demonstrated. Lungs remain clear. Ismael Calderón MD PE at Discharge GENERAL: Very pleasant elderly female in no acute distress. CARDIOVASCULAR: Regular rate and rhythm. No obvious murmurs to auscultation. No chest tenderness to palpation. RESPIRATORY: No obvious rhonchi or wheezing. Clear to auscultation. Breath sounds equal bilaterally. GASTROINTESTINAL: Abdomen soft, non-tender, nondistended. BS normal. MUSCULOSKELETAL: Extremities without clubbing, cyanosis, or edema. No obvious deformities. NEUROLOGICAL: Awake, alert and oriented x4. No focal neurologic deficits. Moving both upper and lower extremities spontaneously. Hospital Course Patient was admitted with hyperglycemia with glucose in the 700s likely secondary to recent steroids. This improved with insulin and discontinuation of steroids. Hospitalization was located by atrial fibrillation with RVR which improved with increase in diltiazem dose, as well as metoprolol. She also presented with acute kidney injury creatinine 2.6 from baseline around 1.5. This initially improved, however subsequently worsened secondary to dehydration , however improved at discharge with slight IV fluids. Diuretics will be decreased, as well lisinopril. Follow-up with cardiology and primary care as outpatient. For problem-based summary from most recent progress note, please see below. //Atrial Fibrillation with RVR. Heart rate improved on diltiazem. Patient will require increased dose of diltiazem. Ordered. Continue to monitor. We can discontinue drip tonight after tonight's dose. = Looked back at patient's previous admissions. Patient used to be on diltiazem 180 mg 3 times daily, as well as metoprolol twice daily. Have adjusted medications. Transfer to floor. Discontinued diltiazem drip. = heart rate controlled on current medication regimen. Appears to be at pacer backup rate = 12/16. Heart rate controlled in the 60s. Follow-up with cardiology as outpatient. //DM2: Uncontrolled secondary to steroids, s/p Solu-Medrol 125mg IV 12/10/17 and Prednisone 20mg qd for acute bronchitis/URI. Hold steroids as stable from respiratory standpoint. BS 748, on admission.s/p multiple doses of Insulin in ER w/ persistent hyperglycemia. Start Sliding Scale w/ Accu-Cheks, resume home medications. BS better controlled. = This appears much improved. Continue to monitor. = Glucose still elevated up into the 200s. Add Levemir twice daily. Diabetic education pending. = 12/16. Lengthy discussion with daughter. Hematoma A1c 8.2. I'm confident that her diabetes will be well controlled at home, as long she doesn't get steroids.. //CHF: Chronic. Diastolic. Not with exacerbation at this time. Echo 05/01/17 w / EF 60-65%, Severe Pulm HTN >70mmHg. Monitor I/O, resume home Aldactone/ Bumex. = slightly dehydrated yesterday. We will slightly decrease diuretics. Decrease lisinopril dose as well. Follow-up with cardiology as outpatient. //COPD not with exacerbation. Chronic Respiratory Failure w/ recent exacerbation , hold steroids secondary to uncontrolled DM. DuoNeb prn. O2 Dependent, monitor O2 //Renal Insufficiency: Acute on Chronic. Creatinine 2.61, previously 2.06 on , caution w/ IVF secondary to CHF. Monitor kidney function. = Creatinine 2.17 today, having from yesterday. BNP 232. 1050 mL fluid bolus and low-dose maintenance fluids. Hold lisinopril, hold diuretics for now. -Plan restart diuretics tomorrow. Continue to monitor. = 12/16. Creatinine 1.79, improved from yesterday. Discontinue IV fluids. Start on half dose of diuretics tonight with half dose of Bumex. Cussed with daughter //DVT Prophylaxis: On Eliquis Pt Condition on Discharge: Good Discharge Disposition: Disch w/ Home Health Serv Discharge Time: > 30 minutes Discharge Instructions DIET: Follow Instructions for: Heart Healthy Diet Activities you can perform: Regular-No Restrictions Follow up Referrals: Cardiology - 1 Week with Park Kramer MD PCP Follow-up - 1 Week with Claudia Richard New Medications: Bumetanide (Bumetanide) 0.5 Mg Tab 0.5 MG PO BID for heart for 30 Days, #60 TAB 0 Refills Lisinopril (Lisinopril) 2.5 Mg Tab 2.5 MG PO DAILY, #30 TAB 0 Refills Spironolactone (Spironolactone) 25 Mg Tab 12.5 MG PO DAILY for heart, #15 TAB 0 Refills Diltiazem CD 24 HR (Diltiazem CD 24 HR) 240 Mg Caper 240 MG PO BID for HEart, #60 CAP Metoprolol Tartrate (Lopressor) 50 Mg Tab 75 MG PO BID for heart for 30 Days, #90 TAB Continued Medications: Albuterol 8.5 GM Inh (Proair Hfa 8.5 GM Inh) 90 Mcg/Act Aer 1 PUFF INH BID PRN for SHORTNESS OF BREATH, #1 INHALER 0 Refills 108 mcg/actuation Alendronate (Alendronate) 70 Mg Tab 70 MG PO Q7D for Osteporosis Treatment, #4 TAB 0 Refills Apixaban (Eliquis) 2.5 Mg Tab 2.5 MG PO BID for Blood Clot Prevention, TAB 0 Refills Arformoterol Neb (Brovana Neb) 15 Mcg/2 Ml Vial 1 NEBULE NEB BID for Broncospasm, #60 NEBULE Maintenance treatment of bronchoconstriction in COPD. Benzonatate (Tessalon Perles) 100 Mg Cap 100 MG PO TID PRN for COUGH, #15 CAP 0 Refills Budesonide-Formoterol Inh (Symbicort Inh) 160-4.5 Mcg/Act Aero 2 PUFF INH BID, #1 INHALER 0 Refills Insulin Degludec Inj (Tresiba Flextouch Pen Inj) 300 unit/3 ML Pen 10 UNITS SQ HS for Blood Sugar Management, #15 ML 0 Refills Insulin Human Regular Inj (Novolin R Inj) 1,000 Unit/10 Ml Vial 1 UNIT SQ Q4HR for dm for 30 Days, INJECTION Levalbuterol 15 GM Inh (Xopenex Hfa 15 GM Inh) 45 Mcg/Act Aer 45 MCG INH Q6HR, #1 INHALER 0 Refills Shake well before using. (1 puff = 45 mcg) Levothyroxine (Levothyroxine) 125 Mcg Tab 125 MCG PO DAILY for Thyroid, #30 TAB 0 Refills Ranitidine (Zantac) 150 Mg Tab 150 MG PO DAILY for Reduce Stomach Acid, #30 TAB 0 Refills Sennosides (Senna Lax) 8.6 Mg Tab 17.2 MG PO DAILY for Constipation, #30 TAB Sitagliptin (Januvia) 50 Mg Tab 50 MG PO BID for Blood Sugar Management, #60 TAB 0 Refills Discontinued Medications: Azithromycin (Azithromycin) 250 Mg Tab 250 MG PO DIRECTED for Infection, #6 TAB 0 Refills Take 2 tabs (500 mg) on day 1 then 1 tab daily x 4 days. Bumetanide (Bumetanide) 1 Mg Tab 1 MG PO BID, #60 TAB 0 Refills Cefuroxime (Ceftin) 250 Mg Tab 500 MG PO BID for 5 Days, #20 TAB Diltiazem (Diltiazem) 90 Mg Tab 180 MG PO BID for Angina, #120 TAB 0 Refills Guaifenesin-Codeine Liq (Guaifenesin-Codeine Liq) 100-10 Mg/5 Ml Soln 10 ML PO Q6H PRN for COUGH for 7 Days, #1 BOTTLE 0 Refills Lisinopril (Lisinopril) 5 Mg Tab 5 MG PO DAILY for Blood Pressure Management, #30 TAB 0 Refills Oseltamivir Phosphate (Oseltamivir Phosphate) 75 Mg Cap 75 MG PO BID, #10 CAP 0 Refills Prednisone (Prednisone) 20 Mg Tab 20 MG PO DAILY for 5 Days, #5 TAB 0 Refills Spironolactone (Spironolactone) 25 Mg Tab 25 MG PO DAILY, #30 TAB 0 Refills Hussein Collazo MD Dec 16, 2017 12:39
--- NOTE | 2017-12-19 09:26 | PQ ---
Physician Query Response Document PATIENT: KARTHIKEYAN ANGEL : 1935 ADMIT DATE: 12/13/2017 6:27 AM DISCH DATE: 12/16/2017 3:33 PM RESPONDING PROVIDER #: [email or web address] QUERY TEXT: Kidney Disease, Chronic CKD Stage Can you further clarify whether the term renal insuffiency is intended to indicate: Such as: -- Acute Renal failure -- Acute Renal injury -- Chronic Renal failure -- Acute on chronic renal failure -- Chronic kidney disease Stage 1 -- Chronic kidney disease Stage 2 -- Chronic kidney disease Stage 3 -- Chronic kidney disease Stage 4 -- Chronic kidney disease Stage 5 -- Chronic kidney disease Stage 5, requiring dialysis -- End Stage Renal Disease -- Other, please specify Stages are defined by the [employer] as follows: CKD Stage I GFR >= 90 ml / min per 1.73 m2 and persistent albuminuria CKD Stage 2 GFR between 60 and 89 with persistent albuminuria CKD Stage 3 GFR between 30 and 59 CKD Stage 4 GFR between 15 and 29 CKD Stage 5 GFR between <15 or End Stage Renal Disease The patient's Clinical Indicators include: Renal insufficiency Acute on Chronic. Creatinine 2.61, previously 2.06 Query created by: Sherine Lawrence on 12/13/2017 11:27 AM RESPONSE TEXT: Acute on chronic CKD3 QUERY TEXT: Bronchitis Specificity Bronchitis is documented in the medical record. Please specify the type of bronchitis such as: Acuity: -- Acute -- Acute on chronic -- Chronic -- Other (please specify in the medical record) -- Clinically unable to determine -- Unknown Type: -- Allergic -- Aspiration -- Asthmatic -- Chronic obstructive bronchitis -- Obstructive bronchitis -- Other (please specify in the medical record) -- Clinically unable to determine -- Unknown The patient's Clinical Indicators include: DM2: Uncontrolled secondary to steroids, s/p Solu-Medrol 125mg IV 12/10/17 and Prednisone 20mg qd for acute bronchitis/URI. Query created by: Sherine Lawrence on 12/13/2017 11:37 AM RESPONSE TEXT: Acute on chronic bronchitis, asthmatic Electronically signed by: Fe Wiley MD 12/19/2017 9:22 AM
== END 2017-12-16 15:33 | disposition home health service (06) | DRG 638 ==
LOC: NEPC 16:35 → NEDA 23:13 → NEDH 12-12 07:15 → NEPHCDU 12-12 14:08 → N03A 12-13 06:11 → OBSVTOIN 12-13 06:27 → N03B 12-13 14:45
PROVIDERS: ADMIT Internal Medicine; ATTEND Internal Medicine
DX: E11.65 Type 2 diabetes mellitus with hyperglycemia (principal); I50.32 Chronic diastolic (congestive) heart failure; N17.9 Acute kidney failure, unspecified; J96.10 Chronic respiratory failure, unspecified whether with hypoxia or hypercapnia; J44.0 Chronic obstructive pulmonary disease with (acute) lower respiratory infection; I13.0 Hypertensive heart and chronic kidney disease with heart failure and stage 1 through stage 4 chronic kidney disease, or unspecified chronic kidney disease; I27.20 Pulmonary hypertension, unspecified; Z99.81 Dependence on supplemental oxygen; E11.22 Type 2 diabetes mellitus with diabetic chronic kidney disease; E86.0 Dehydration; I48.2 Chronic atrial fibrillation; J20.9 Acute bronchitis, unspecified; N18.3 Chronic kidney disease, stage 3 (moderate); M19.90 Unspecified osteoarthritis, unspecified site; K21.9 Gastro-esophageal reflux disease without esophagitis; B19.20 Unspecified viral hepatitis C without hepatic coma; M81.0 Age-related osteoporosis without current pathological fracture; I25.2 Old myocardial infarction; Z79.02 Long term (current) use of antithrombotics/antiplatelets; Z79.4 Long term (current) use of insulin; Z95.5 Presence of coronary angioplasty implant and graft; Z90.710 Acquired absence of both cervix and uterus; Z95.0 Presence of cardiac pacemaker; T38.0X5A Adverse effect of glucocorticoids and synthetic analogues, initial encounter; R05 Cough
CPT/HCPCS: 71045; 80048; 80053; 80069; 82010; 82948; 83036; 83735; 83880; 85025; 93005; 94618; 94664; 96361; 96372; 96374; G0378; J1815; J1940; J2405; J7030; J7040

== ENCOUNTER 2018-08-13 20:24 | Inpatient (IN) ==
--- NOTE | 2018-08-13 20:40 | ED ---
HPI General Chief Complaint: Chest Pain Stated Complaint: chest pain Time Seen by Provider: 08/13/18 20:32 Source: patient Mode of arrival: ambulatory Limitations: no limitations and language barrier (spanixh) History of Present Illness HPI narrative: 83-year-old female presents to the emergency department by private transportation in the care of her daughter who brings her to the hospital for patient's complaint of shortness of breath and chest tightness as well as left lower extremity pain. Patient has had chest tightness and shortness of breath today. Patient's had leg pain for several days or longer. Patient has extensive past medical history including CAD atrial fibrillation NV cardiac catheterization with stents pacemaker hypertension diabetes COPD and CHF. Patient is on supplemental oxygen at nighttime. No report of recent febrile illness or injury. Patient's ear flap binder is Dr. Day. No medications taken prior to arrival to the emergency department. Patient is prescribed Eliquis for diagnosis of atrial fibrillation. MD complaint: chest pain Related Data Home Medications Medication Instructions Recorded Confirmed apixaban [Eliquis] 2.5 mg PO BID 08/13/18 08/13/18 bumetanide 1 mg PO BID 08/13/18 08/13/18 digoxin 0.125 mg PO EVERY OTHER DAY 08/13/18 08/13/18 diltiazem HCl 180 mg PO TID 08/13/18 08/13/18 metoprolol tartrate 50 mg PO BID 08/13/18 08/13/18 sitagliptin [Januvia] 100 mg PO DAILY 08/13/18 08/13/18 Previous Rx's Medication Instructions Recorded ipratropium-albuterol 1 amp NEB Q6HR NEB 30 Days #120 neb 08/15/18 Allergies Allergy/AdvReac Type Severity Reaction Status Date / Time penicillin G Allergy Severe Anaphylaxis Verified 12/11/17 18:07 levofloxacin AdvReac Severe Confusion Verified 12/11/17 18:07 Quinolones AdvReac Severe Confusion Verified 12/11/17 18:07 verapamil AdvReac Severe Nausea/Vomi Verified 12/11/17 18:07 ting Iodinated Contrast- Oral and AdvReac Unknown Verified 12/11/17 18:07 IV Dye Review of Systems ROS: all other systems reviewed are negative (with daughter's assistance) PMFSH History History Provided By: Patient, Family Member and Medical Record (Atrial fibrillation CAD NV stents pacemaker hypertension diabetes COPD CHF; no tobacco use) Family History Family History Other HTN (hypertension) Social History Social History Substance History: No History of Abuse Second Hand Smoke Exposure: No Smoking Status: Never smoker How Often Do You Have a Drink Containing Alcohol: Never Hx Recent Travel: No Recent Travel in [facility] within the Last 8 Weeks: No Recent Out of Country Travel within the Last 8 Weeks: No Exam Narrative Exam Narrative: GENERAL: Well-nourished, well-developed patient. Mildly anxious appearing female with room air O2 saturation 88% placed on supplemental oxygen with O2 supplementation saturation is 94% on 2 L SKIN: Focused skin assessment warm/dry. HEAD: Normocephalic. EYES: No scleral icterus. No injection or drainage. NECK: Supple, trachea midline. No JVD or lymphadenopathy. CARDIOVASCULAR: Irregularly irregular rate and rhythm without murmurs, gallops, or rubs. Palpable bilateral radial and dorsalis pedis pulses to palpation and also detected/confirmed by bedside Doppler RESPIRATORY: Breath sounds equal bilaterally. No accessory muscle use. GASTROINTESTINAL: Abdomen soft, non-tender, nondistended. MUSCULOSKELETAL: No cyanosis, or edema. BACK: Nontender without obvious deformity. No CVA tenderness. Course Reevaluation(s) Reevaluation #1: Patient clinically improved after administration of nitroglycerin Lasix and aspirin patient resting comfortably supine with O2 saturations on 2 L/min nasal cannula 97%; patient will be admitted have discussed patient with on-call resident service physician Dr. Valencia for attending Dr. Peña Initial Documented Vital Signs Temperature 97.8 F 08/13/18 20:36 Pulse Rate 105 H 08/13/18 20:36 Respiratory Rate 16 08/13/18 20:36 Blood Pressure 190/86 H 08/13/18 20:36 Pulse Oximetry 89 L 08/13/18 20:36 Last Documented Vital Signs Temperature 98.6 F 08/15/18 11:10 Pulse Rate 99 H 08/15/18 11:10 Respiratory Rate 20 08/15/18 11:10 Blood Pressure 166/84 H 08/15/18 11:10 Pulse Oximetry 93 L 08/15/18 11:10 Medical Decision Making MDM Narrative Medical decision making narrative: 83-year-old female presents with chest pain and shortness of breath with decreased room air O2 saturation responsive to supplemental 2 L/min nasal cannula oxygen patient complaining of ongoing pain noted to be hypertensive administered aspirin 162 mg 1 dose as well as sublingual nitroglycerin 0.4 mg At 10 PM labs resulted patient identified to have mild leukocytosis white count 13,400 and thrombocytopenia platelet count 230,000 with chronic anemia hemoglobin 11.1 chemistries remarkable for persistent renal insufficiency although this is improved from last visit BUN is 19 with a creatinine of 1.58 patient remains hyperglycemic has not had her evening dose of medications. Patient takes Bumex 1 mg half tablet twice daily received her morning dose of Bumex but not have her evening dose of Bumex. Patient will be given Lasix 20 mg IV as review of medical records indicates patient very sensitive to this medication for diuresis identified on chest x-ray to have mild vascular congestion suspect patient presented with some mild CHF/edema BNP is elevated at 909. Cardiac enzymes remarkable for CK within normal range troponin I 0.03 within normal limits. Patient has no chest pain after sublingual nitroglycerin and Nitropaste 1/2 inch to chest wall administered O2 saturation on 2 L per nasal cannula is 97% and patient is resting supine in no respiratory distress. Patient will be admitted for CHF exacerbation and possible angina. Patient's had no fever no productive cough this point time white count may reflect stress demargination as opposed to infectious versus inflammatory process. Patient has bilateral palpable dorsalis pedis pulses which is also confirmed by bedside Doppler and capillary refill is not delayed with warm pink feet patient does have calf tenderness to palpation no palpable mass. No edema low suspicion for compartment syndrome however patient is at risk for peripheral vascular disease. Patient is reportedly allergic to IV contrast and at this point time no indication for emergent imaging of the left lower extremity does not appear to have acute limb ischemia at this time. Medical Screen Exam Complete: Yes Emergency Medical Condition: Yes Differential Diagnosis Differential Diagnosis: Chest pain, atypical chest pain, ACS, NV, CHF, exacerbation COPD, uncontrolled atrial fibrillation, peripheral vascular disease ; also to consider limb ischemia Medical Records Medical records reviewed: Yes I reviewed the patient's medical records. Lab Data Result diagrams: 08/15/18 06:05 08/15/18 06:05 Lab Results 08/13/18 08/13/18 08/13/18 Range/Units 20:40 20:40 20:40 WBC 13.4 H (4.0-11.0) th/mm3 RBC 3.75 L (4.00-5.30) mil/mm3 Hgb 11.1 L (11.6-15.3) gm/dL Hct 32.9 L (35.0-46.0) % MCV 87.7 (80.0-100.0) fL MCH 29.7 (27.0-34.0) pg MCHC 33.8 (32.0-36.0) % RDW 14.6 (11.6-17.2) % Plt Count 130 L (150-450) th/mm3 MPV 9.4 (7.0-11.0) fL Prelim Diff (Auto) Neut % (Auto) 68.2 (16.0-70.0) % Lymph % (Auto) 20.1 (9.0-44.0) % [place] % (Auto) 10.7 H (0.0-8.0) % Eos % (Auto) 0.5 (0.0-4.0) % Baso % (Auto) 0.5 (0.0-2.0) % Neut # (Auto) 9.1 H (1.8-7.7) th/mm3 Lymph # (Auto) 2.7 (1.0-4.8) th/mm3 [place] # (Auto) 1.4 H (0.0-0.9) th/mm3 Eos # (Auto) 0.1 (0.0-0.4) th/mm3 Baso # (Auto) 0.1 (0.0-0.2) th/mm3 WBC Differential . Diff Scan Differential Comment Auto diff final Platelet Estimate (Normal) Platelet Morphology (Normal) PT 12.2 H (9.8-11.6) sec INR 1.2 Ratio APTT 26.6 (24.3-30.1) sec Sodium 134 L (136-145) meq/L Potassium 4.0 (3.5-5.1) meq/L Chloride 98 (98-107) meq/L Carbon Dioxide 27.4 (21.0-32.0) meq/L Anion Gap 9 (5-15) meq/L BUN 19 H (7-18) mg/dL Creatinine 1.58 H (0.50-1.00) mg/dL Estimated GFR 31 L (>89) mL/min POC Glucose (68-110) mg/dl Random Glucose 360 H (74-106) mg/dL Calcium 8.5 (8.5-10.1) mg/dL Magnesium 1.7 (1.5-2.5) mg/dL Total Bilirubin 1.1 H (0.2-1.0) mg/dL AST 29 (15-37) U/L ALT 23 (10-53) U/L Alkaline Phosphatase 104 (45-117) U/L Ammonia (11-32) mcmol/L Total Creatine Kinase 62 (26-192) U/L Troponin I 0.03 (0.02-0.05) ng/mL B-Natriuretic Peptide (0-100) pg/mL Total Protein 9.8 H (6.4-8.2) g/dL Albumin 3.4 (3.4-5.0) g/dL Digoxin (0.8-2.0) ng/mL 08/13/18 08/13/18 08/14/18 Range/Units 20:40 20:40 03:00 WBC (4.0-11.0) th/mm3 RBC (4.00-5.30) mil/mm3 Hgb (11.6-15.3) gm/dL Hct (35.0-46.0) % MCV (80.0-100.0) fL MCH (27.0-34.0) pg MCHC (32.0-36.0) % RDW (11.6-17.2) % Plt Count (150-450) th/mm3 MPV (7.0-11.0) fL Prelim Diff (Auto) Neut % (Auto) (16.0-70.0) % Lymph % (Auto) (9.0-44.0) % [place] % (Auto) (0.0-8.0) % Eos % (Auto) (0.0-4.0) % Baso % (Auto) (0.0-2.0) % Neut # (Auto) (1.8-7.7) th/mm3 Lymph # (Auto) (1.0-4.8) th/mm3 [place] # (Auto) (0.0-0.9) th/mm3 Eos # (Auto) (0.0-0.4) th/mm3 Baso # (Auto) (0.0-0.2) th/mm3 WBC Differential Diff Scan Differential Comment Platelet Estimate (Normal) Platelet Morphology (Normal) PT (9.8-11.6) sec INR Ratio APTT (24.3-30.1) sec Sodium (136-145) meq/L Potassium (3.5-5.1) meq/L Chloride (98-107) meq/L Carbon Dioxide (21.0-32.0) meq/L Anion Gap (5-15) meq/L BUN (7-18) mg/dL Creatinine (0.50-1.00) mg/dL Estimated GFR (>89) mL/min POC Glucose (68-110) mg/dl Random Glucose (74-106) mg/dL Calcium (8.5-10.1) mg/dL Magnesium (1.5-2.5) mg/dL Total Bilirubin (0.2-1.0) mg/dL AST (15-37) U/L ALT (10-53) U/L Alkaline Phosphatase (45-117) U/L Ammonia (11-32) mcmol/L Total Creatine Kinase (26-192) U/L Troponin I 0.03 (0.02-0.05) ng/mL B-Natriuretic Peptide 909 H (0-100) pg/mL Total Protein (6.4-8.2) g/dL Albumin (3.4-5.0) g/dL Digoxin 1.0 (0.8-2.0) ng/mL 08/14/18 08/14/18 08/14/18 Range/Units 03:00 03:18 07:57 WBC (4.0-11.0) th/mm3 RBC (4.00-5.30) mil/mm3 Hgb (11.6-15.3) gm/dL Hct (35.0-46.0) % MCV (80.0-100.0) fL MCH (27.0-34.0) pg MCHC (32.0-36.0) % RDW (11.6-17.2) % Plt Count (150-450) th/mm3 MPV (7.0-11.0) fL Prelim Diff (Auto) Neut % (Auto) (16.0-70.0) % Lymph % (Auto) (9.0-44.0) % [place] % (Auto) (0.0-8.0) % Eos % (Auto) (0.0-4.0) % Baso % (Auto) (0.0-2.0) % Neut # (Auto) (1.8-7.7) th/mm3 Lymph # (Auto) (1.0-4.8) th/mm3 [place] # (Auto) (0.0-0.9) th/mm3 Eos # (Auto) (0.0-0.4) th/mm3 Baso # (Auto) (0.0-0.2) th/mm3 WBC Differential Diff Scan Differential Comment Platelet Estimate (Normal) Platelet Morphology (Normal) PT (9.8-11.6) sec INR Ratio APTT (24.3-30.1) sec Sodium (136-145) meq/L Potassium (3.5-5.1) meq/L Chloride (98-107) meq/L Carbon Dioxide (21.0-32.0) meq/L Anion Gap (5-15) meq/L BUN (7-18) mg/dL Creatinine (0.50-1.00) mg/dL Estimated GFR (>89) mL/min POC Glucose 342 H 257 H (68-110) mg/dl Random Glucose (74-106) mg/dL Calcium (8.5-10.1) mg/dL Magnesium (1.5-2.5) mg/dL Total Bilirubin (0.2-1.0) mg/dL AST (15-37) U/L ALT (10-53) U/L Alkaline Phosphatase (45-117) U/L Ammonia (11-32) mcmol/L Total Creatine Kinase (26-192) U/L Troponin I (0.02-0.05) ng/mL B-Natriuretic Peptide 952 H (0-100) pg/mL Total Protein (6.4-8.2) g/dL Albumin (3.4-5.0) g/dL Digoxin (0.8-2.0) ng/mL 08/14/18 08/14/18 08/14/18 Range/Units 09:13 09:13 12:15 WBC (4.0-11.0) th/mm3 RBC (4.00-5.30) mil/mm3 Hgb (11.6-15.3) gm/dL Hct (35.0-46.0) % MCV (80.0-100.0) fL MCH (27.0-34.0) pg MCHC (32.0-36.0) % RDW (11.6-17.2) % Plt Count (150-450) th/mm3 MPV (7.0-11.0) fL Prelim Diff (Auto) Neut % (Auto) (16.0-70.0) % Lymph % (Auto) (9.0-44.0) % [place] % (Auto) (0.0-8.0) % Eos % (Auto) (0.0-4.0) % Baso % (Auto) (0.0-2.0) % Neut # (Auto) (1.8-7.7) th/mm3 Lymph # (Auto) (1.0-4.8) th/mm3 [place] # (Auto) (0.0-0.9) th/mm3 Eos # (Auto) (0.0-0.4) th/mm3 Baso # (Auto) (0.0-0.2) th/mm3 WBC Differential Diff Scan Differential Comment Platelet Estimate (Normal) Platelet Morphology (Normal) PT (9.8-11.6) sec INR Ratio APTT (24.3-30.1) sec Sodium (136-145) meq/L Potassium (3.5-5.1) meq/L Chloride (98-107) meq/L Carbon Dioxide (21.0-32.0) meq/L Anion Gap (5-15) meq/L BUN (7-18) mg/dL Creatinine (0.50-1.00) mg/dL Estimated GFR (>89) mL/min POC Glucose 237 H (68-110) mg/dl Random Glucose (74-106) mg/dL Calcium (8.5-10.1) mg/dL Magnesium (1.5-2.5) mg/dL Total Bilirubin (0.2-1.0) mg/dL AST (15-37) U/L ALT (10-53) U/L Alkaline Phosphatase (45-117) U/L Ammonia 32 (11-32) mcmol/L Total Creatine Kinase (26-192) U/L Troponin I 0.02 (0.02-0.05) ng/mL B-Natriuretic Peptide (0-100) pg/mL Total Protein (6.4-8.2) g/dL Albumin (3.4-5.0) g/dL Digoxin (0.8-2.0) ng/mL 08/14/18 08/14/18 08/15/18 Range/Units 17:37 20:19 03:30 WBC (4.0-11.0) th/mm3 RBC (4.00-5.30) mil/mm3 Hgb (11.6-15.3) gm/dL Hct (35.0-46.0) % MCV (80.0-100.0) fL MCH (27.0-34.0) pg MCHC (32.0-36.0) % RDW (11.6-17.2) % Plt Count (150-450) th/mm3 MPV (7.0-11.0) fL Prelim Diff (Auto) Neut % (Auto) (16.0-70.0) % Lymph % (Auto) (9.0-44.0) % [place] % (Auto) (0.0-8.0) % Eos % (Auto) (0.0-4.0) % Baso % (Auto) (0.0-2.0) % Neut # (Auto) (1.8-7.7) th/mm3 Lymph # (Auto) (1.0-4.8) th/mm3 [place] # (Auto) (0.0-0.9) th/mm3 Eos # (Auto) (0.0-0.4) th/mm3 Baso # (Auto) (0.0-0.2) th/mm3 WBC Differential Diff Scan Differential Comment Platelet Estimate (Normal) Platelet Morphology (Normal) PT (9.8-11.6) sec INR Ratio APTT (24.3-30.1) sec Sodium (136-145) meq/L Potassium (3.5-5.1) meq/L Chloride (98-107) meq/L Carbon Dioxide (21.0-32.0) meq/L Anion Gap (5-15) meq/L BUN (7-18) mg/dL Creatinine (0.50-1.00) mg/dL Estimated GFR (>89) mL/min POC Glucose 302 H 225 H 242 H (68-110) mg/dl Random Glucose (74-106) mg/dL Calcium (8.5-10.1) mg/dL Magnesium (1.5-2.5) mg/dL Total Bilirubin (0.2-1.0) mg/dL AST (15-37) U/L ALT (10-53) U/L Alkaline Phosphatase (45-117) U/L Ammonia (11-32) mcmol/L Total Creatine Kinase (26-192) U/L Troponin I (0.02-0.05) ng/mL B-Natriuretic Peptide (0-100) pg/mL Total Protein (6.4-8.2) g/dL Albumin (3.4-5.0) g/dL Digoxin (0.8-2.0) ng/mL 08/15/18 08/15/18 08/15/18 Range/Units 06:05 06:05 10:34 WBC 8.5 (4.0-11.0) th/mm3 RBC 3.10 L (4.00-5.30) mil/mm3 Hgb 9.5 L (11.6-15.3) gm/dL Hct 26.8 L (35.0-46.0) % MCV 86.7 (80.0-100.0) fL MCH 30.6 (27.0-34.0) pg MCHC 35.3 (32.0-36.0) % RDW 14.5 (11.6-17.2) % Plt Count 88 L D (150-450) th/mm3 MPV 9.1 (7.0-11.0) fL Prelim Diff (Auto) Slide review pending Neut % (Auto) 65.1 (16.0-70.0) % Lymph % (Auto) 19.9 (9.0-44.0) % [place] % (Auto) 14.2 H (0.0-8.0) % Eos % (Auto) 0.6 (0.0-4.0) % Baso % (Auto) 0.2 (0.0-2.0) % Neut # (Auto) 5.5 (1.8-7.7) th/mm3 Lymph # (Auto) 1.7 (1.0-4.8) th/mm3 [place] # (Auto) 1.2 H (0.0-0.9) th/mm3 Eos # (Auto) 0.1 (0.0-0.4) th/mm3 Baso # (Auto) 0.0 (0.0-0.2) th/mm3 WBC Differential . Diff Scan Auto diff confirmed Differential Comment . Platelet Estimate Low L (Normal) Platelet Morphology Normal (Normal) PT (9.8-11.6) sec INR Ratio APTT (24.3-30.1) sec Sodium 137 (136-145) meq/L Potassium 3.5 (3.5-5.1) meq/L Chloride 98 (98-107) meq/L Carbon Dioxide 30.1 (21.0-32.0) meq/L Anion Gap 9 (5-15) meq/L BUN 20 H (7-18) mg/dL Creatinine 1.24 H (0.50-1.00) mg/dL Estimated GFR 41 L (>89) mL/min POC Glucose 308 H (68-110) mg/dl Random Glucose 204 H D (74-106) mg/dL Calcium 8.4 L (8.5-10.1) mg/dL Magnesium (1.5-2.5) mg/dL Total Bilirubin (0.2-1.0) mg/dL AST (15-37) U/L ALT (10-53) U/L Alkaline Phosphatase (45-117) U/L Ammonia (11-32) mcmol/L Total Creatine Kinase (26-192) U/L Troponin I (0.02-0.05) ng/mL B-Natriuretic Peptide (0-100) pg/mL Total Protein (6.4-8.2) g/dL Albumin (3.4-5.0) g/dL Digoxin (0.8-2.0) ng/mL 08/15/18 Range/Units 12:12 WBC (4.0-11.0) th/mm3 RBC (4.00-5.30) mil/mm3 Hgb (11.6-15.3) gm/dL Hct (35.0-46.0) % MCV (80.0-100.0) fL MCH (27.0-34.0) pg MCHC (32.0-36.0) % RDW (11.6-17.2) % Plt Count (150-450) th/mm3 MPV (7.0-11.0) fL Prelim Diff (Auto) Neut % (Auto) (16.0-70.0) % Lymph % (Auto) (9.0-44.0) % [place] % (Auto) (0.0-8.0) % Eos % (Auto) (0.0-4.0) % Baso % (Auto) (0.0-2.0) % Neut # (Auto) (1.8-7.7) th/mm3 Lymph # (Auto) (1.0-4.8) th/mm3 [place] # (Auto) (0.0-0.9) th/mm3 Eos # (Auto) (0.0-0.4) th/mm3 Baso # (Auto) (0.0-0.2) th/mm3 WBC Differential Diff Scan Differential Comment Platelet Estimate (Normal) Platelet Morphology (Normal) PT (9.8-11.6) sec INR Ratio APTT (24.3-30.1) sec Sodium (136-145) meq/L Potassium (3.5-5.1) meq/L Chloride (98-107) meq/L Carbon Dioxide (21.0-32.0) meq/L Anion Gap (5-15) meq/L BUN (7-18) mg/dL Creatinine (0.50-1.00) mg/dL Estimated GFR (>89) mL/min POC Glucose 325 H (68-110) mg/dl Random Glucose (74-106) mg/dL Calcium (8.5-10.1) mg/dL Magnesium (1.5-2.5) mg/dL Total Bilirubin (0.2-1.0) mg/dL AST (15-37) U/L ALT (10-53) U/L Alkaline Phosphatase (45-117) U/L Ammonia (11-32) mcmol/L Total Creatine Kinase (26-192) U/L Troponin I (0.02-0.05) ng/mL B-Natriuretic Peptide (0-100) pg/mL Total Protein (6.4-8.2) g/dL Albumin (3.4-5.0) g/dL Digoxin (0.8-2.0) ng/mL Imaging Data Radiologist's impression: Chest X-Ray 08/13/18 20:32 CONCLUSION: 1. Mild pulmonary vessel congestion. 2. Mild patchy bilateral lower lung opacity. 3. Small bilateral pleural effusions. Venous Doppler Study 08/13/18 20:32 CONCLUSION: No evidence of left lower extremity DVT. Chest X-Ray 08/14/18 08:44 CONCLUSION: Cardiomegaly and findings of vascular congestion without overt failure. There has been no significant change when compared to the prior exam. ECG Data EKG Prior to Arrival: No Attestation: I personally reviewed and interpreted this ECG as follows: Prior ECG tracings: available for review Interpretation: EKG atrial fibrillation rate 98 ST T depression anterolaterally and inferiorly rare pacer spike no acute ST elevation Discharge Plan Discharge Disposition Patient Disposition: 30 Still Patient Discharge Condition Condition: Stable Discharge Order Discharge Orders: Discharge Order (Routine); Ordered 08/15/18 Ordered By: Tsering Esquivel Discharge Details Anticipated Discharge Date: 08/15/18 Discharge Comment: please call family to inform of discharge, OK for pickup. we have ordered home health PT Diagnosis: CHF (congestive heart failure), Chest pain, Peripheral vascular disease Physicians Team ED Provider: Diana White Primary Care Provider: Claudia Richard Attending Provider: Brooke Peña ED Status: Left Department Discharge Information Discharge Date/Time: 08/14/18 00:43
[2018-08-13] MEDS: Sodium Chlor 0.9% Inj 500 ML IV.CONT SCH (20:56)
[2018-08-13 21:08] LABS: Baso # (Auto) 0.1 th/mm3 (0.0-0.2); Baso % (Auto) 0.5 % (0.0-2.0); Eos # (Auto) 0.1 th/mm3 (0.0-0.4); Eos % (Auto) 0.5 % (0.0-4.0); Hematocrit 32.9 % (35.0-46.0); Hemoglobin 11.1 gm/dL (11.6-15.3); Lymph # (Auto) 2.7 th/mm3 (1.0-4.8); Lymph % (Auto) 20.1 % (9.0-44.0); Mean Corpuscular HGB Conc 33.8 % (32.0-36.0); Mean Corpuscular Hemoglobin 29.7 pg (27.0-34.0); Mean Corpuscular Volume 87.7 fL (80.0-100.0); Mean Platelet Volume 9.4 fL (7.0-11.0); Mono # (Auto) 1.4 th/mm3 (0.0-0.9); Mono % (Auto) 10.7 % (0.0-8.0); Neut # (Auto) 9.1 th/mm3 (1.8-7.7); Neut % (Auto) 68.2 % (16.0-70.0); Platelet Count 130 th/mm3 (150-450); Red Blood Count 3.75 mil/mm3 (4.00-5.30); Red Cell Distribution Width 14.6 % (11.6-17.2); White Blood Count 13.4 th/mm3 (4.0-11.0)
[2018-08-13 21:22] LABS: Albumin 3.4 g/dL (3.4-5.0); Anion Gap 9 meq/L (5-15); Aspartate Aminotransferase 29 U/L (15-37); Blood Urea Nitrogen 19 mg/dL (7-18); Calcium 8.5 mg/dL (8.5-10.1); Carbon Dioxide 27.4 meq/L (21.0-32.0); Chloride 98 meq/L (98-107); Glomerular Filtration Rate 31 mL/min (>89); Glucose,Random 360 mg/dL (74-106); Magnesium 1.7 mg/dL (1.5-2.5); Sodium 134 meq/L (136-145)
[2018-08-13 21:23] LABS: Alanine Aminotransferase 23 U/L (10-53)
[2018-08-13 21:26] LABS: Activated Partial Thrombo Time 26.6 sec (24.3-30.1); INR 1.2 Ratio; Prothrombin Time 12.2 sec (9.8-11.6)
[2018-08-13 21:27] LABS: Alkaline Phosphatase 104 U/L (45-117); Total Protein 9.8 g/dL (6.4-8.2); Troponin I 0.03 ng/mL (0.02-0.05)
--- NOTE | 2018-08-13 21:28 | XR ---
EXAM DATE: 08/13/2018 8:55 PM EDT AGE/SEX: 83 years / Female INDICATIONS: Midline chest pain. CLINICAL DATA: This is the patient's initial encounter. Patient reports that signs and symptoms have been present for 1 day and indicates a pain score of 5/10. MEDICAL/SURGICAL HISTORY: Myocardial infarction. Atrial fibrillation. Pacemaker. Cardiac sten ts. COMPARISON: [facility] [place], CHEST SINGLE AP, 12/11/2017. . FINDINGS: Single AP view of the chest. Patchy bilateral lower lung zone opacity. Small bilateral ple ural effusions. Mild cardiac silhouette enlargement unchanged. Dual-lead cardiac pacemaker in place. Mild prominence of the central pulmonary vasculature. CONCLUSION: 1. Mild pulmonary vessel congestion. 2. Mild patchy bilateral lower lung opacity. 3. Small bilateral pleural effusions. Electronically signed by: Aram cSott MD 08/13/2018 9:27 PM EDT
--- NOTE | 2018-08-13 21:44 | US ---
EXAM DATE: 08/13/2018 9:33 PM EDT AGE/SEX: 83 years / Female INDICATIONS: Left leg pain. CLINICAL DATA: This is the patient's initial encounter. Patient reports that signs and symptoms have been present for 2 days and indicates a pain score of 4/10. MEDICAL/SURGICAL HISTORY: Congestive heart failure. Chronic obstructive pulmonary disease. Di abetes. Afib. Coronary artery disease. Hypertension. Myocardial infarction. . Heart artery stent. Pacemaker. COMPARISON: [facility], US LEG VENOUS DOPPLER, LEFT, 01/05/2016. . TECHNIQUE: Venous ultrasound of both lower extremities was performed from the inguinal ligament to t he proximal calf. Real-time, color Doppler and spectral tracing, compression and augmentation techni ques were used. FINDINGS: Normal compression of the deep venous system from the inguinal region to the proximal calf . No echogenic clot is seen. Normal response of the venous system to augmentation and respiration. CONCLUSION: No evidence of left lower extremity DVT. Electronically signed by: Aram Scott MD 08/13/2018 9:43 PM EDT
[2018-08-13 21:45] LABS: Creatine Kinase 62 U/L (26-192)
--- NOTE | 2018-08-13 23:05 | P.HPFP ---
History of Present Illness Primary Care Physician: Claudia Richard History of Present Illness: 83 y/o F, complains of left leg pain with activity x 2 days and chest tightness. She was complaining of left leg pain as well, and saying that it hurts when she walks. She started complaining of chest tightness this afternoon , and the chest tightness was constant until they got to the ED. They did not try any meds to alleviate the CP. The pt commonly feels this pressure when she has fluid buildup in her lungs. The daughter took her vitals at home and found that her O2 sat was 83-85%(baseline 95-96) and she brought her into the ED. Pt denies any N/V/sweating. She has been taking all of her medications as prescribed. Per daughter, the pt appeared to be having a more difficult time breathing than usual. She uses 2L o2 at night regularly, but over the last few days she has needed to use her O2 during the day as well. She was given a nebulizer treatment at home and that seemed to help sx as well. She has been out of the hospital for 7-8 months now, but before that she was hospitalize monthly for pulmonary fluid overload. - Diagnosis (1) Chest pain (2) CKD (chronic kidney disease) (3) Diabetes (4) Leg pain (5) CHF (congestive heart failure) (6) Hypertension (7) Atrial fibrillation (8) Nutrition, metabolism, and development symptoms Review of Systems Constitutional: Denies chills, Denies fever(s), Denies night sweats Ears, Nose, Mouth, and Throat: Denies mouth lesions Cardiovascular: Denies fast heart rate, Denies irregular heart rhythm, Denies lightheadedness Respiratory: Denies chest congestion, Denies cough Gastrointestinal: Reports change in bowel habits (bleeding in BM since 03/2018, planned for colonoscopy this week), Denies abdominal pain, Denies belching Neurologic: Denies abnormal walking Psychiatric: Denies anxiety, Denies confusion, Denies depression [facility] - History History Provided By: Patient, Family Member, Medical Record (Atrial fibrillation CAD MS stents pacemaker hypertension diabetes COPD CHF; no tobacco use) - Medical History Medical History: Medical History (Last Updated 08/13/18 @ 23:32 by Tsering Esquivel MD, R2) Afib CAD (coronary artery disease) CHF (congestive heart failure) CKD (chronic kidney disease) COPD (chronic obstructive pulmonary disease) Cirrhosis Diabetes HTN (hypertension) Hepatitis C Myocardial infarction Pacemaker - Surgical History Surgical History: Surgical History (Last Reviewed 08/13/18 @ 23:04 by Tsering Esquivel MD, R2) History of heart artery stent - Family History Family History: Family History (Last Updated 08/13/18 @ 23:04 by Tsering Esquivel MD, R2) Other HTN (hypertension) - Social History I have reviewed the patient's Social History: Yes - Tobacco History Second Hand Smoke Exposure: No Smoking Status: Never smoker - Alcohol History How Often Do You Have a Drink Containing Alcohol: Never - Substance Use History Substance History: No History of Abuse - Travel History History of Recent Travel: No Recent Travel in the [place] Within the Last 8 Weeks: No Recent Travel Out of the Country Within the Last 8 Weeks: No - Immunization History Tetanus Immunization: <5 Years Hx Influenza Vaccine This Season: Yes Medications and Allergies Active Medications: Active Medications Sodium Chloride (Ns Inj) 500 mls @ 30 mls/hr IV.CONT .[id number] SHAKIRA Last Admin: 08/13/18 20:56 Dose: 30 mls/hr Sodium Chloride (Ns Flush) 2 ml IV.FLUSH UNSCH PRN PRN Reason: FLUSH AFTER USING IV ACCESS Allergies Allergy/AdvReac Type Severity Reaction Status Date / Time penicillin G Allergy Severe Anaphylaxis Verified 12/11/17 18:07 levofloxacin AdvReac Severe Confusion Verified 12/11/17 18:07 Quinolones AdvReac Severe Confusion Verified 12/11/17 18:07 verapamil AdvReac Severe Nausea/Vomi Verified 12/11/17 18:07 ting Iodinated Contrast- Oral and AdvReac Unknown Verified 12/11/17 18:07 IV Dye Home Medications Medication Instructions Recorded Confirmed Type apixaban [Eliquis] 2.5 mg PO BID 08/13/18 08/13/18 History bumetanide 1 mg PO BID 08/13/18 08/13/18 History digoxin 0.125 mg PO EVERY OTHER DAY 08/13/18 08/13/18 History diltiazem HCl 180 mg PO TID 08/13/18 08/13/18 History metoprolol tartrate 50 mg PO BID 08/13/18 08/13/18 History sitagliptin [Januvia] 100 mg PO DAILY 08/13/18 08/13/18 History Exam Vital signs: Vital Signs 08/13/18 20:36 08/13/18 20:43 08/13/18 21:04 Temperature 97.8 F Pulse Rate 105 H Respiratory Rate 16 Blood Pressure 190/86 H Pulse Oximetry 89 L 96 96 Intake & Output 08/13/18 08/13/18 08/14/18 06:59 18:59 06:59 Weight 48.534 kg Narrative: General: Well-nourished, well-developed, in no acute distress Skin: Intact, no rash present HEENT: Neck supple, no nodules appreciated Cardio: Regular rate and rhythm, no murmurs Respiratory: Clear to auscultation bilaterally, no wheezing, rales, crackles. Distant breath sounds in all lobes bilaterally Abdominal: Normal bowel sounds, soft, nondistended, no tenderness Results - Labs Result diagrams: 08/13/18 20:40 08/13/18 20:40 Abnormal lab results 08/13/18 08/13/18 08/13/18 Range/Units 20:40 20:40 20:40 WBC 13.4 H (4.0-11.0) th/mm3 RBC 3.75 L (4.00-5.30) mil/mm3 Hgb 11.1 L (11.6-15.3) gm/dL Hct 32.9 L (35.0-46.0) % Plt Count 130 L (150-450) th/mm3 [place] % (Auto) 10.7 H (0.0-8.0) % Neut # (Auto) 9.1 H (1.8-7.7) th/mm3 [place] # (Auto) 1.4 H (0.0-0.9) th/mm3 PT 12.2 H (9.8-11.6) sec Sodium 134 L (136-145) meq/L BUN 19 H (7-18) mg/dL Creatinine 1.58 H (0.50-1.00) mg/dL Estimated GFR 31 L (>89) mL/min Random Glucose 360 H (74-106) mg/dL Total Bilirubin 1.1 H (0.2-1.0) mg/dL B-Natriuretic Peptide (0-100) pg/mL Total Protein 9.8 H (6.4-8.2) g/dL 08/13/18 Range/Units 20:40 WBC (4.0-11.0) th/mm3 RBC (4.00-5.30) mil/mm3 Hgb (11.6-15.3) gm/dL Hct (35.0-46.0) % Plt Count (150-450) th/mm3 [place] % (Auto) (0.0-8.0) % Neut # (Auto) (1.8-7.7) th/mm3 [place] # (Auto) (0.0-0.9) th/mm3 PT (9.8-11.6) sec Sodium (136-145) meq/L BUN (7-18) mg/dL Creatinine (0.50-1.00) mg/dL Estimated GFR (>89) mL/min Random Glucose (74-106) mg/dL Total Bilirubin (0.2-1.0) mg/dL B-Natriuretic Peptide 909 H (0-100) pg/mL Total Protein (6.4-8.2) g/dL Short CBC 08/13/18 Range/Units 20:40 WBC 13.4 H (4.0-11.0) th/mm3 Hgb 11.1 L (11.6-15.3) gm/dL Hct 32.9 L (35.0-46.0) % Plt Count 130 L (150-450) th/mm3 BMP 08/13/18 20:40 Sodium 134 L Potassium 4.0 Chloride 98 Carbon Dioxide 27.4 BUN 19 H Creatinine 1.58 H Calcium 8.5 Cardiac Enzymes 08/13/18 Range/Units 20:40 Total Creatine Kinase 62 (26-192) U/L Troponin I 0.03 (0.02-0.05) ng/mL Liver Function 08/13/18 Range/Units 20:40 Total Bilirubin 1.1 H (0.2-1.0) mg/dL AST 29 (15-37) U/L ALT 23 (10-53) U/L Alkaline Phosphatase 104 (45-117) U/L Albumin 3.4 (3.4-5.0) g/dL - Imaging Impressions Chest X-Ray 08/13/18 20:32 CONCLUSION: 1. Mild pulmonary vessel congestion. 2. Mild patchy bilateral lower lung opacity. 3. Small bilateral pleural effusions. Venous Doppler Study 08/13/18 20:32 CONCLUSION: No evidence of left lower extremity DVT. Caprini VTE Risk Assessment Caprini VTE Risk Assessment: No/Low Risk (score <= 1) Caprini Risk Assessment Model: Point Value = 1 Point Value = 2 Point Value = 3 Point Value = 5 Age 41-60 Minor surgery BMI > 25 kg/m2 Swollen legs Varicose veins or History of unexplained or recurrent spontaneous Oral contraceptives or hormone replacement Sepsis (< 1 month) Serious lung disease, including pneumonia (< 1 month) Abnormal pulmonary function Acute myocardial infarction Congestive heart failure (< 1 month) History of inflammatory bowel disease Medical patient at bed rest Age 61-74 Arthroscopic surgery Major open surgery (> 45 min) Laparoscopic surgery (> 45 min) Malignancy Confined to bed (> 72 hours) Immobilizing plaster cast Central venous access Age >= 75 History of VTE Family history of VTE Factor V Leiden Prothrombin [id number] Lupus anticoagulant Anticardiolipin antibodies Elevated serum homocysteine Heparin-induced thrombocytopenia Other congenital or acquired thrombophilia Stroke (< 1 month) Elective arthroplasty Hip, pelvis, or leg fracture Acute spinal cord injury (< 1 month) Prophylaxis Regimen: Total Risk Factor Score Risk Level Prophylaxis Regimen 0-1 Low Early ambulation 2 Moderate Order ONE of the following: *Sequential Compression Device (SCD) *Heparin 5000 units SQ BID 3-4 Higher Order ONE of the following medications: *Heparin 5000 units SQ TID *Enoxaparin/Lovenox 40 mg SQ daily (WT < 150 kg, CrCl > 30 mL/min) *Enoxaparin/Lovenox 30 mg SQ daily (WT < 150 kg, CrCl > 10-29 mL/min) *Enoxaparin/Lovenox 30 mg SQ BID (WT < 150 kg, CrCl > 30 mL/min) AND/OR *Sequential Compression Device (SCD) 5 or more Highest Order ONE of the following medications: *Heparin 5000 units SQ TID (Preferred with Epidurals) *Enoxaparin/Lovenox 40 mg SQ daily (WT < 150 kg, CrCl > 30 mL/min) *Enoxaparin/Lovenox 30 mg SQ daily (WT < 150 kg, CrCl > 10-29 mL/min) *Enoxaparin/Lovenox 30 mg SQ BID (WT < 150 kg, CrCl > 30 mL/min) AND *Sequential Compression Device (SCD) Assessment and Plan - Assessment (1) Chest pain Code(s): R07.9 - Chest pain, unspecified Status: Acute Plan: Epigastric chest pain, similar to chest pain in past associated with fluid overload Due to ACS versus respiratory difficulty versus gastritis Admit as inpatient Follow-up EKG 3 Follow-up vital signs Follow-up troponin 3 Oxygen as needed Albuterol as needed Duo nebs scheduled (2) CKD (chronic kidney disease) Code(s): N18.9 - Chronic kidney disease, unspecified Status: Acute Plan: Creatinine 1.58, baseline for this patient Caution with nephrotoxins Follow-up creatinine (3) Diabetes Code(s): E11.9 - Type 2 diabetes mellitus without complications Status: Acute Plan: Glucose 360 on admission Continue home long-acting medication Add NovoLog sliding scale (4) Leg pain Code(s): M79.606 - Pain in leg, unspecified Status: Acute Plan: Left leg pain Doppler ultrasound negative (5) CHF (congestive heart failure) Code(s): I50.9 - Heart failure, unspecified Status: Acute Plan: Continue home diuretics Follow-up improvement of O2 saturations, follow-up symptomatic improvement (6) Hypertension Code(s): I10 - Essential (primary) hypertension Status: Acute Plan: Continue home meds (7) Atrial fibrillation Code(s): I48.91 - Unspecified atrial fibrillation Status: Acute Plan: Seen on EKG, history of chronic A. fib Continue cardiac medications, continue Eliquis (8) Nutrition, metabolism, and development symptoms Code(s): R63.8 - Other symptoms and signs concerning food and fluid intake Status: Acute Plan: Nutrition: Regular diet Electrolytes: Follow-up BMP and replete as needed Fluids: P.o. fluids DVT prophylaxis: Continue Eliquis, SCDs (1) Chest pain Qualifiers: Chest pain type: precordial pain Qualified Code(s): R07.2 - Precordial pain (5) CHF (congestive heart failure) Qualifiers: Heart failure type: unspecified Heart failure chronicity: acute on chronic Qualified Code(s): I50.9 - Heart failure, unspecified
[2018-08-13] MEDS ORDERED: Dextrose 50% in Water 50 ML Vial IV.PUSH PRN (23:29)
[2018-08-14] MEDS: Metoprolol Tartrate 50 MG Tablet PO SCH ×3 (00:28→20:20)
[2018-08-14] MEDS: Insulin NovoLOG Aspart Correctional Sugar Inj SQ SCH ×5 (03:37→20:21)
[2018-08-14] MEDS: dilTIAZem CD 180 MG Capsule PO SCH ×2 (08:19→20:20)
[2018-08-14] MEDS ORDERED: Insulin Detemir Inj 1,000 UNIT/10 ML Vial SQ ONE (09:00)
--- NOTE | 2018-08-14 10:15 | XR ---
EXAM DATE: 08/14/2018 10:08 AM EDT AGE/SEX: 83 years / Female INDICATIONS: . Short of Breath CLINICAL DATA: This is the patient's subsequent encounter. Patient reports that signs and symptoms h ave been present for 2 days and indicates a pain score of 0/10. MEDICAL/SURGICAL HISTORY: . Congestive heart failure. Chronic obstructive pulmonary disease. Di abetes. Afib. Coronary artery disease. Hypertension. Myocardial infarction. . Heart artery stent. Ferny ramos. COMPARISON: [facility] – [place], CHEST 1V SINGLE AP, 08/13/2018. . FINDINGS: The cardiac silhouette is enlarged in transverse diameter. A bipolar pacemaker is in place via a left sided approach. There is prominence of the aortic knob is with calcification characteristic of ather osclerotic vascular disease. There is prominence of the central pulmonary vasculature with indistinct vascular margins compatible with vascular congestion but no evidence of overt failure. CONCLUSION: Cardiomegaly and findings of vascular congestion without overt failure. There has been no significant change when compared to the prior exam. Electronically signed by: Gulshan Crowley MD 08/14/2018 10:14 AM EDT
[2018-08-14] MEDS ORDERED: Promethazine 12.5 MG Supp RECTAL PRN (11:00)
--- NOTE | 2018-08-14 11:12 | P.PNFP ---
Results - Labs Result diagrams: 08/13/18 20:40 08/13/18 20:40 Abnormal lab results 08/13/18 08/13/18 08/13/18 Range/Units 20:40 20:40 20:40 WBC 13.4 H (4.0-11.0) th/mm3 RBC 3.75 L (4.00-5.30) mil/mm3 Hgb 11.1 L (11.6-15.3) gm/dL Hct 32.9 L (35.0-46.0) % Plt Count 130 L (150-450) th/mm3 [place] % (Auto) 10.7 H (0.0-8.0) % Neut # (Auto) 9.1 H (1.8-7.7) th/mm3 [place] # (Auto) 1.4 H (0.0-0.9) th/mm3 PT 12.2 H (9.8-11.6) sec Sodium 134 L (136-145) meq/L BUN 19 H (7-18) mg/dL Creatinine 1.58 H (0.50-1.00) mg/dL Estimated GFR 31 L (>89) mL/min POC Glucose (68-110) mg/dl Random Glucose 360 H (74-106) mg/dL Total Bilirubin 1.1 H (0.2-1.0) mg/dL B-Natriuretic Peptide (0-100) pg/mL Total Protein 9.8 H (6.4-8.2) g/dL 08/13/18 08/14/18 08/14/18 Range/Units 20:40 03:00 03:18 WBC (4.0-11.0) th/mm3 RBC (4.00-5.30) mil/mm3 Hgb (11.6-15.3) gm/dL Hct (35.0-46.0) % Plt Count (150-450) th/mm3 [place] % (Auto) (0.0-8.0) % Neut # (Auto) (1.8-7.7) th/mm3 [place] # (Auto) (0.0-0.9) th/mm3 PT (9.8-11.6) sec Sodium (136-145) meq/L BUN (7-18) mg/dL Creatinine (0.50-1.00) mg/dL Estimated GFR (>89) mL/min POC Glucose 342 H (68-110) mg/dl Random Glucose (74-106) mg/dL Total Bilirubin (0.2-1.0) mg/dL B-Natriuretic Peptide 909 H 952 H (0-100) pg/mL Total Protein (6.4-8.2) g/dL 08/14/18 Range/Units 07:57 WBC (4.0-11.0) th/mm3 RBC (4.00-5.30) mil/mm3 Hgb (11.6-15.3) gm/dL Hct (35.0-46.0) % Plt Count (150-450) th/mm3 [place] % (Auto) (0.0-8.0) % Neut # (Auto) (1.8-7.7) th/mm3 [place] # (Auto) (0.0-0.9) th/mm3 PT (9.8-11.6) sec Sodium (136-145) meq/L BUN (7-18) mg/dL Creatinine (0.50-1.00) mg/dL Estimated GFR (>89) mL/min POC Glucose 257 H (68-110) mg/dl Random Glucose (74-106) mg/dL Total Bilirubin (0.2-1.0) mg/dL B-Natriuretic Peptide (0-100) pg/mL Total Protein (6.4-8.2) g/dL Short CBC 08/13/18 Range/Units 20:40 WBC 13.4 H (4.0-11.0) th/mm3 Hgb 11.1 L (11.6-15.3) gm/dL Hct 32.9 L (35.0-46.0) % Plt Count 130 L (150-450) th/mm3 BMP 08/13/18 20:40 Sodium 134 L Potassium 4.0 Chloride 98 Carbon Dioxide 27.4 BUN 19 H Creatinine 1.58 H Calcium 8.5 Cardiac Enzymes 08/13/18 08/14/18 08/14/18 Range/Units 20:40 03:00 09:13 Total Creatine Kinase 62 (26-192) U/L Troponin I 0.03 0.03 0.02 (0.02-0.05) ng/mL Liver Function 08/13/18 Range/Units 20:40 Total Bilirubin 1.1 H (0.2-1.0) mg/dL AST 29 (15-37) U/L ALT 23 (10-53) U/L Alkaline Phosphatase 104 (45-117) U/L Albumin 3.4 (3.4-5.0) g/dL - Imaging Impressions Chest X-Ray 08/13/18 20:32 CONCLUSION: 1. Mild pulmonary vessel congestion. 2. Mild patchy bilateral lower lung opacity. 3. Small bilateral pleural effusions. Venous Doppler Study 08/13/18 20:32 CONCLUSION: No evidence of left lower extremity DVT. Chest X-Ray 08/14/18 08:44 CONCLUSION: Cardiomegaly and findings of vascular congestion without overt failure. There has been no significant change when compared to the prior exam. Physical Exam Vital signs: Vital Signs 08/13/18 20:36 08/13/18 20:43 08/13/18 21:04 Temperature 97.8 F Pulse Rate 105 H Respiratory Rate 16 Blood Pressure 190/86 H Pulse Oximetry 89 L 96 96 08/13/18 22:55 08/14/18 00:00 08/14/18 03:48 Temperature 98.2 F 98.9 F Pulse Rate 86 81 104 H Respiratory Rate 20 18 Blood Pressure 166/95 H 194/82 H 173/81 H Pulse Oximetry 95 93 L 96 08/14/18 03:57 08/14/18 03:58 08/14/18 04:01 Temperature Pulse Rate 72 108 H Respiratory Rate 22 Blood Pressure Pulse Oximetry 96 08/14/18 07:32 08/14/18 07:39 Temperature 98.2 F Pulse Rate 96 H 104 H Respiratory Rate 20 20 Blood Pressure 180/83 H Pulse Oximetry 91 L 92 L Intake & Output 08/13/18 08/14/18 08/14/18 18:59 06:59 18:59 Weight 48.534 kg Other: Date of Last Bowel Movement 08/13/18 Weight On Admission 48.534 kg Assessment and Plan - Assessment (1) Chest pain Code(s): R07.9 - Chest pain, unspecified Status: Acute Plan: Epigastric chest pain, similar to chest pain in past associated with fluid overload Due to ACS versus respiratory difficulty versus gastritis Admit as inpatient Follow-up EKG 3 Follow-up vital signs Follow-up troponin 3 Oxygen as needed Albuterol as needed Duo nebs scheduled (2) CKD (chronic kidney disease) Code(s): N18.9 - Chronic kidney disease, unspecified Status: Acute Plan: Creatinine 1.58, baseline for this patient Caution with nephrotoxins Follow-up creatinine (3) Diabetes Code(s): E11.9 - Type 2 diabetes mellitus without complications Status: Acute Plan: Glucose 360 on admission Continue home long-acting medication Add NovoLog sliding scale (4) Leg pain Code(s): M79.606 - Pain in leg, unspecified Status: Acute Plan: Left leg pain Doppler ultrasound negative (5) CHF (congestive heart failure) Code(s): I50.9 - Heart failure, unspecified Status: Acute Plan: Continue home diuretics Follow-up improvement of O2 saturations, follow-up symptomatic improvement (6) Hypertension Code(s): I10 - Essential (primary) hypertension Status: Acute Plan: Continue home meds (7) Atrial fibrillation Code(s): I48.91 - Unspecified atrial fibrillation Status: Acute Plan: Seen on EKG, history of chronic A. fib Continue cardiac medications, continue Eliquis (8) Nutrition, metabolism, and development symptoms Code(s): R63.8 - Other symptoms and signs concerning food and fluid intake Status: Acute Plan: Nutrition: Regular diet Electrolytes: Follow-up BMP and replete as needed Fluids: P.o. fluids DVT prophylaxis: Continue Eliquis, SCDs (1) Chest pain Qualifiers: Chest pain type: precordial pain Qualified Code(s): R07.2 - Precordial pain (5) CHF (congestive heart failure) Qualifiers: Heart failure type: unspecified Heart failure chronicity: acute on chronic Qualified Code(s): I50.9 - Heart failure, unspecified
--- NOTE | 2018-08-14 13:48 | P.PNFP ---
Subjective Interval history: 83-year-old female who presented to the emergency department with chest pain, and a sensation of tightness in her chest. She has an extensive history of CHF, COPD, atrial fibrillation, CAD, history of HI, peripheral vascular disease, chronic kidney disease and diabetes mellitus. She lives with her daughter for the past 3 years. Approximately monthly, she is seen in the emergency department and given diuretics. Her current symptoms have been present for approximately 2 days. When she presented to the emergency department she was given nitro and Lasix and her chest pain resolved. However her oxygen saturation on room air was 85%. She also complained of left lower leg pain. At the time of admission her glucose was 360 and her BNP was in the 900 range. Please see history and physical examination for this admission for additional historical details including past, family, social history and review of systems at the time of admission. When seen this morning, she is asymptomatic, her daughter is with her, and daughter reports that she is probably at least 60% better than she was on admission. She no longer is having any chest pain. She did have some emesis after we finished examining her today. Daughter reports that she is very independent, and is quite noncompliant with her safety measures at home. Results - Labs Result diagrams: 08/13/18 20:40 08/13/18 20:40 Abnormal lab results 08/13/18 08/13/18 08/13/18 Range/Units 20:40 20:40 20:40 WBC 13.4 H (4.0-11.0) th/mm3 RBC 3.75 L (4.00-5.30) mil/mm3 Hgb 11.1 L (11.6-15.3) gm/dL Hct 32.9 L (35.0-46.0) % Plt Count 130 L (150-450) th/mm3 Reagan % (Auto) 10.7 H (0.0-8.0) % Neut # (Auto) 9.1 H (1.8-7.7) th/mm3 Reagan # (Auto) 1.4 H (0.0-0.9) th/mm3 PT 12.2 H (9.8-11.6) sec Sodium 134 L (136-145) meq/L BUN 19 H (7-18) mg/dL Creatinine 1.58 H (0.50-1.00) mg/dL Estimated GFR 31 L (>89) mL/min POC Glucose (68-110) mg/dl Random Glucose 360 H (74-106) mg/dL Total Bilirubin 1.1 H (0.2-1.0) mg/dL B-Natriuretic Peptide (0-100) pg/mL Total Protein 9.8 H (6.4-8.2) g/dL 08/13/18 08/14/18 08/14/18 Range/Units 20:40 03:00 03:18 WBC (4.0-11.0) th/mm3 RBC (4.00-5.30) mil/mm3 Hgb (11.6-15.3) gm/dL Hct (35.0-46.0) % Plt Count (150-450) th/mm3 Reagan % (Auto) (0.0-8.0) % Neut # (Auto) (1.8-7.7) th/mm3 Reagan # (Auto) (0.0-0.9) th/mm3 PT (9.8-11.6) sec Sodium (136-145) meq/L BUN (7-18) mg/dL Creatinine (0.50-1.00) mg/dL Estimated GFR (>89) mL/min POC Glucose 342 H (68-110) mg/dl Random Glucose (74-106) mg/dL Total Bilirubin (0.2-1.0) mg/dL B-Natriuretic Peptide 909 H 952 H (0-100) pg/mL Total Protein (6.4-8.2) g/dL 08/14/18 08/14/18 Range/Units 07:57 12:15 WBC (4.0-11.0) th/mm3 RBC (4.00-5.30) mil/mm3 Hgb (11.6-15.3) gm/dL Hct (35.0-46.0) % Plt Count (150-450) th/mm3 Reagan % (Auto) (0.0-8.0) % Neut # (Auto) (1.8-7.7) th/mm3 Reagan # (Auto) (0.0-0.9) th/mm3 PT (9.8-11.6) sec Sodium (136-145) meq/L BUN (7-18) mg/dL Creatinine (0.50-1.00) mg/dL Estimated GFR (>89) mL/min POC Glucose 257 H 237 H (68-110) mg/dl Random Glucose (74-106) mg/dL Total Bilirubin (0.2-1.0) mg/dL B-Natriuretic Peptide (0-100) pg/mL Total Protein (6.4-8.2) g/dL Short CBC 08/13/18 Range/Units 20:40 WBC 13.4 H (4.0-11.0) th/mm3 Hgb 11.1 L (11.6-15.3) gm/dL Hct 32.9 L (35.0-46.0) % Plt Count 130 L (150-450) th/mm3 BMP 08/13/18 20:40 Sodium 134 L Potassium 4.0 Chloride 98 Carbon Dioxide 27.4 BUN 19 H Creatinine 1.58 H Calcium 8.5 Cardiac Enzymes 08/13/18 08/14/18 08/14/18 Range/Units 20:40 03:00 09:13 Total Creatine Kinase 62 (26-192) U/L Troponin I 0.03 0.03 0.02 (0.02-0.05) ng/mL Liver Function 08/13/18 Range/Units 20:40 Total Bilirubin 1.1 H (0.2-1.0) mg/dL AST 29 (15-37) U/L ALT 23 (10-53) U/L Alkaline Phosphatase 104 (45-117) U/L Albumin 3.4 (3.4-5.0) g/dL - Imaging Impressions Chest X-Ray 08/13/18 20:32 CONCLUSION: 1. Mild pulmonary vessel congestion. 2. Mild patchy bilateral lower lung opacity. 3. Small bilateral pleural effusions. Venous Doppler Study 08/13/18 20:32 CONCLUSION: No evidence of left lower extremity DVT. Chest X-Ray 08/14/18 08:44 CONCLUSION: Cardiomegaly and findings of vascular congestion without overt failure. There has been no significant change when compared to the prior exam. Physical Exam Vital signs: Vital Signs 08/13/18 20:36 08/13/18 20:43 08/13/18 21:04 Temperature 97.8 F Pulse Rate 105 H Respiratory Rate 16 Blood Pressure 190/86 H Pulse Oximetry 89 L 96 96 08/13/18 22:55 08/14/18 00:00 08/14/18 03:48 Temperature 98.2 F 98.9 F Pulse Rate 86 81 104 H Respiratory Rate 20 18 Blood Pressure 166/95 H 194/82 H 173/81 H Pulse Oximetry 95 93 L 96 08/14/18 03:57 08/14/18 03:58 08/14/18 04:01 Temperature Pulse Rate 72 108 H Respiratory Rate 22 Blood Pressure Pulse Oximetry 96 08/14/18 07:32 08/14/18 07:39 08/14/18 11:40 Temperature 98.2 F 100.4 F H Pulse Rate 96 H 104 H 98 H Respiratory Rate 20 20 20 Blood Pressure 180/83 H 172/80 H Pulse Oximetry 91 L 92 L 90 L 08/14/18 12:44 Temperature Pulse Rate 102 H Respiratory Rate 22 Blood Pressure Pulse Oximetry Intake & Output 08/13/18 08/14/18 08/14/18 18:59 06:59 18:59 Weight 48.534 kg Other: Date of Last Bowel Movement 08/13/18 Weight On Admission 48.534 kg - Additional findings Additional findings: Elderly female who speaks no Nepalese, in no acute distress with the exception of breathing more rapidly than usual. Skin is warm and dry Conjunctivae pink Neck supple without lymphadenopathy Heart is regular with grade 2 systolic rub Lungs are showing decreased breath sounds throughout Abdomen protuberant with positive bowel sounds Extremities show hyperpigmentation distally, faint if even palpable at all in the dorsalis pedis and posterior tibial areas. Assessment and Plan - Assessment (1) Chest pain Code(s): R07.9 - Chest pain, unspecified Status: Resolved Plan: Epigastric chest pain, similar to chest pain in past associated with fluid overload Due to ACS versus respiratory difficulty versus gastritis Admit as inpatient Follow-up EKG 3 Follow-up vital signs Follow-up troponin 3 Oxygen as needed Albuterol as needed Duo nebs scheduled (2) CKD (chronic kidney disease) Code(s): N18.9 - Chronic kidney disease, unspecified Status: Chronic Plan: Creatinine 1.58, baseline for this patient Caution with nephrotoxins Follow-up creatinine (3) Diabetes Code(s): E11.9 - Type 2 diabetes mellitus without complications Status: Chronic Plan: Glucose 360 on admission Continue home long-acting medication Add NovoLog sliding scale (4) Leg pain Code(s): M79.606 - Pain in leg, unspecified Status: Resolved Plan: Left leg pain Doppler ultrasound negative (5) CHF (congestive heart failure) Code(s): I50.9 - Heart failure, unspecified Status: Acute Plan: Continue home diuretics Follow-up improvement of O2 saturations, follow-up symptomatic improvement (6) Hypertension Code(s): I10 - Essential (primary) hypertension Status: Chronic Plan: Continue home meds (7) Atrial fibrillation Code(s): I48.91 - Unspecified atrial fibrillation Status: Acute Plan: Seen on EKG, history of chronic A. fib Continue cardiac medications, continue Eliquis (8) Nutrition, metabolism, and development symptoms Code(s): R63.8 - Other symptoms and signs concerning food and fluid intake Status: Acute Plan: Nutrition: Regular diet Electrolytes: Follow-up BMP and replete as needed Fluids: P.o. fluids DVT prophylaxis: Continue Eliquis, SCDs - Assessment and Plan See orders Discharge Planning: Assistance with case management. She will likely need home health for physical therapy. - Attending Attestation Patient seen, examined and discussed with the medicine B team. I agree with the plan. (1) Chest pain Qualifiers: Chest pain type: precordial pain Qualified Code(s): R07.2 - Precordial pain (2) CKD (chronic kidney disease) Qualifiers: Chronic kidney disease stage: unspecified stage Qualified Code(s): N18.9 - Chronic kidney disease, unspecified (3) Diabetes Qualifiers: Diabetes mellitus type: type 2 Chronic kidney disease stage: unspecified stage (4) Leg pain Qualifiers: Laterality: left Qualified Code(s): M79.605 - Pain in left leg (5) CHF (congestive heart failure) Qualifiers: Heart failure type: unspecified Heart failure chronicity: acute on chronic Qualified Code(s): I50.9 - Heart failure, unspecified
[2018-08-14] MEDS: Sodium Chlor 0.9% Inj 500 ML IV.CONT SCH (14:01)
--- NOTE | 2018-08-14 16:34 | P.CODE44 ---
Code 44 - Inpatient to Obs - Code 44 - Inpatient to Obs Statement: A clinical review of the case has been conducted by a member of the Utilization Review Committee. The findings indicate the patient meets criteria for observation status. The information and decision has been discussed with the attending physician Brooke Peña MD and physician provider Simon Fortune MD.
[2018-08-14] MEDS: hydrALAZINE 10 MG Tablet PO SCH ×2 (17:44→20:20)
--- NOTE | 2018-08-14 19:16 | ECG ---
Date Performed: 08/14/2018 Time Performed: 00:53:25 PTAGE: 83 years EKG: UNCERTAIN IRREGULAR RHYTHM ELECTRONIC VENTRICULAR PACEMAKER -- CONTOUR ANALYSIS BASED ON IN TRINSIC RHYTHM ST DEVIATION AND MODERATE T-WAVE ABNORMALITY, CONSIDER LATERAL ISCHEMIA ST DEVIATION A ND MODERATE T-WAVE ABNORMALITY, CONSIDER INFERIOR ISCHEMIA ABNORMAL ECG PREVIOUS TRACING : 08/13/2018 20.27 Since the previous tracing, no significant change noted DOCTOR: Lidia Bai Interpretating Date/Time 08/14/2018 19:15:35
--- NOTE | 2018-08-14 19:17 | ECG ---
Date Performed: 08/14/2018 Time Performed: 03:44:35 PTAGE: 83 years EKG: ATRIAL FIBRILLATION WITH RAPID VENTRICULAR RESPONSE ST DEVIATION AND MODERATE T-WAVE ABNORM ALITY, CONSIDER LATERAL ISCHEMIA ST DEVIATION AND MODERATE T-WAVE ABNORMALITY, CONSIDER INFERIOR ISCH EMIA ABNORMAL ECG PREVIOUS TRACING : 08/10/2018 05.06 Since the previous tracing, no significant change noted DOCTOR: Lidia Bai Interpretating Date/Time 08/14/2018 19:16:01
--- NOTE | 2018-08-14 19:58 | ECG ---
Date Performed: 08/13/2018 Time Performed: 20:27:20 PTAGE: 83 years EKG: ATRIAL FIBRILLATION ST DEVIATION AND MODERATE T-WAVE ABNORMALITY, CONSIDER LATERAL ISCHEMIA ST DEVIATION AND MODERATE T-WAVE ABNORMALITY, CONSIDER INFERIOR ISCHEMIA ABNORMAL ECG INTERPRETATION BASED ON A DEFAULT AGE OF 40 YEARS PREVIOUS TRACING : 12/15/2017 20.21 Compared to previous tracing, the patient is overridi ng the pacemaker. The marked ST segment changes inferiorly and anteriorly are new. Clinical correlati on is recommended to exclude Myocardial injury. DOCTOR: Lidia Bai Interpretating Date/Time 08/14/2018 19:58:01
[2018-08-15] MEDS: Insulin NovoLOG Aspart Correctional Sugar Inj SQ SCH ×3 (03:32→13:51)
[2018-08-15 07:08] LABS: Baso % (Auto) 0.2 % (0.0-2.0); Eos # (Auto) 0.1 th/mm3 (0.0-0.4); Eos % (Auto) 0.6 % (0.0-4.0); Hematocrit 26.8 % (35.0-46.0); Hemoglobin 9.5 gm/dL (11.6-15.3); Lymph # (Auto) 1.7 th/mm3 (1.0-4.8); Lymph % (Auto) 19.9 % (9.0-44.0); Mean Corpuscular HGB Conc 35.3 % (32.0-36.0); Mean Corpuscular Hemoglobin 30.6 pg (27.0-34.0); Mean Corpuscular Volume 86.7 fL (80.0-100.0); Mean Platelet Volume 9.1 fL (7.0-11.0); Mono # (Auto) 1.2 th/mm3 (0.0-0.9); Mono % (Auto) 14.2 % (0.0-8.0); Neut # (Auto) 5.5 th/mm3 (1.8-7.7); Neut % (Auto) 65.1 % (16.0-70.0); Platelet Count 88 th/mm3 (150-450); Red Cell Distribution Width 14.5 % (11.6-17.2); White Blood Count 8.5 th/mm3 (4.0-11.0)
[2018-08-15 07:42] LABS: Calcium 8.4 mg/dL (8.5-10.1); Carbon Dioxide 30.1 meq/L (21.0-32.0); Potassium 3.5 meq/L (3.5-5.1)
[2018-08-15 08:14] LABS: Platelet Morphology Normal (Normal)
[2018-08-15] MEDS ORDERED: Digoxin 125 MCG Tablet PO SCH (09:00)
--- NOTE | 2018-08-15 09:23 | P.DCO ---
- Physical Therapy Order: Evaluate and treat, Improve ambulation, Strength and gait training - Home Health Nursing Order: Medical education, Signs/symptoms of disease process, Diabetic education , Medication education-adverse effect, Nursing assessment with vital signs - Case Management Consult Yes - Certification I have seen patient Toshia Ortiz on 08/15/18. My clinical findings support the need for the requested home health care services because: Limited mobility due to disease progression, Patient has SOB, Deconditioned with increased weakness, Medication compliance is questionable, High risk of falls I certify that my clinical findings support that this patient is homebound because: Unsteady gait/balance, Unsafe to leave home unassisted
--- NOTE | 2018-08-15 09:45 | P.PNFP ---
Subjective Interval history: Seen and examined bedside this morning. Patient is asymptomatic and states she is breathing well. She is ready to go home. Denies any chest pain/shortness of breath/dizziness. <Tsering Esquivel - 08/15/18 11:10> Results - Labs Result diagrams: 08/15/18 06:05 08/15/18 06:05 <Corrine Peñaan - 08/16/18 13:41> Abnormal lab results 08/14/18 08/14/18 08/14/18 Range/Units 12:15 17:37 20:19 RBC (4.00-5.30) mil/mm3 Hgb (11.6-15.3) gm/dL Hct (35.0-46.0) % Plt Count (150-450) th/mm3 Dane % (Auto) (0.0-8.0) % Dane # (Auto) (0.0-0.9) th/mm3 Platelet Estimate (Normal) BUN (7-18) mg/dL Creatinine (0.50-1.00) mg/dL Estimated GFR (>89) mL/min POC Glucose 237 H 302 H 225 H (68-110) mg/dl Random Glucose (74-106) mg/dL Calcium (8.5-10.1) mg/dL 08/15/18 08/15/18 08/15/18 Range/Units 03:30 06:05 06:05 RBC 3.10 L (4.00-5.30) mil/mm3 Hgb 9.5 L (11.6-15.3) gm/dL Hct 26.8 L (35.0-46.0) % Plt Count 88 L D (150-450) th/mm3 Dane % (Auto) 14.2 H (0.0-8.0) % Dane # (Auto) 1.2 H (0.0-0.9) th/mm3 Platelet Estimate Low L (Normal) BUN 20 H (7-18) mg/dL Creatinine 1.24 H (0.50-1.00) mg/dL Estimated GFR 41 L (>89) mL/min POC Glucose 242 H (68-110) mg/dl Random Glucose 204 H D (74-106) mg/dL Calcium 8.4 L (8.5-10.1) mg/dL Short CBC 08/15/18 Range/Units 06:05 WBC 8.5 (4.0-11.0) th/mm3 Hgb 9.5 L (11.6-15.3) gm/dL Hct 26.8 L (35.0-46.0) % Plt Count 88 L D (150-450) th/mm3 BMP 08/15/18 06:05 Sodium 137 Potassium 3.5 Chloride 98 Carbon Dioxide 30.1 BUN 20 H Creatinine 1.24 H Calcium 8.4 L <Tsering Esquivel - 08/15/18 09:45> - Imaging Impressions Chest X-Ray 08/14/18 08:44 CONCLUSION: Cardiomegaly and findings of vascular congestion without overt failure. There has been no significant change when compared to the prior exam. <Tsering Esquivel - 08/15/18 09:45> Physical Exam Vital signs: Vital Signs 08/14/18 11:40 08/14/18 12:44 08/14/18 15:45 Temperature 100.4 F H 99.3 F Pulse Rate 98 H 102 H 113 H Respiratory Rate 20 22 20 Blood Pressure 172/80 H 170/79 H Pulse Oximetry 90 L 88 L 08/14/18 19:40 08/14/18 19:50 08/14/18 20:54 Temperature 98.7 F Pulse Rate 80 81 92 H Respiratory Rate 17 24 Blood Pressure 136/69 Pulse Oximetry 98 95 96 08/14/18 23:22 08/15/18 03:48 08/15/18 07:23 Temperature 98.4 F 98.3 F 98.4 F Pulse Rate 84 77 72 Respiratory Rate 17 16 28 H Blood Pressure 136/63 156/67 H 165/78 H Pulse Oximetry 97 97 98 08/15/18 08:51 Temperature Pulse Rate 64 Respiratory Rate 16 Blood Pressure Pulse Oximetry Intake & Output 08/14/18 08/15/18 08/15/18 18:59 06:59 18:59 Intake Total 0 / 0 900 / 900 Output Total 340 / 340 Balance 0 / 0 560 / 560 Weight 48.52 kg Intake: IV 0 / 0 NS Inj 500 ML @ 30 mls/hr IV. 0 / 0 CONT .[id number] [facility] Rx#:[id number] Oral 900 / 900 Output: Urine 340 / 340 Other: # Voids 3 Date of Last Bowel Movement 08/13/18 08/13/18 <Tara Esquivelory - 08/15/18 09:45> Narrative: General: Well-nourished, well-developed, in no acute distress Skin: Intact, no rash present HEENT: Neck supple, no nodules appreciated Cardio: Regular rate and rhythm, no murmurs Respiratory: Clear to auscultation bilaterally, no wheezing, rales, crackles. Improved pulmonary exam. Abdominal: Normal bowel sounds, soft, nondistended, no tenderness <Tsering Esquivel - 08/15/18 11:10> Assessment and Plan - Assessment (1) Chest pain Code(s): R07.9 - Chest pain, unspecified Status: Resolved Plan: ACS workup negative. Epigastric chest pain, similar to chest pain in past associated with fluid overload Due to ACS versus respiratory difficulty versus gastritis Admit as inpatient Follow-up EKG 3 Follow-up vital signs Follow-up troponin 3 Oxygen as needed Albuterol as needed Duo nebs scheduled (2) CKD (chronic kidney disease) Code(s): N18.9 - Chronic kidney disease, unspecified Status: Chronic Plan: Creatinine 1.58, baseline for this patient Caution with nephrotoxins Follow-up creatinine (3) Diabetes Code(s): E11.9 - Type 2 diabetes mellitus without complications Status: Chronic Plan: Glucose 360 on admission Continue home long-acting medication Add NovoLog sliding scale (4) Leg pain Code(s): M79.606 - Pain in leg, unspecified Status: Resolved Plan: Left leg pain Doppler ultrasound negative Will recommend home health PT for her leg pain/weakness (5) CHF (congestive heart failure) Code(s): I50.9 - Heart failure, unspecified Status: Acute Plan: O2 sats WNL, asymptomatic Continue home medications, follow-up with PCP at home (6) Hypertension Code(s): I10 - Essential (primary) hypertension Status: Chronic Plan: Continue home meds (7) Atrial fibrillation Code(s): I48.91 - Unspecified atrial fibrillation Status: Acute Plan: Seen on EKG, history of chronic A. fib Continue cardiac medications, continue Eliquis (8) Nutrition, metabolism, and development symptoms Code(s): R63.8 - Other symptoms and signs concerning food and fluid intake Status: Acute Plan: Nutrition: Regular diet Electrolytes: Follow-up BMP and replete as needed Fluids: P.o. fluids DVT prophylaxis: Continue Eliquis, SCDs <Tsering Esquivel - 08/15/18 11:03> (1) CKD (chronic kidney disease) Code(s): N18.9 - Chronic kidney disease, unspecified Status: Chronic (2) Diabetes Code(s): E11.9 - Type 2 diabetes mellitus without complications Status: Chronic (3) CHF (congestive heart failure) Code(s): I50.9 - Heart failure, unspecified Status: Acute (4) Hypertension Code(s): I10 - Essential (primary) hypertension Status: Chronic (5) Atrial fibrillation Code(s): I48.91 - Unspecified atrial fibrillation Status: Acute (6) Nutrition, metabolism, and development symptoms Code(s): R63.8 - Other symptoms and signs concerning food and fluid intake Status: Acute <Brooke Peña - 08/16/18 13:41> - Assessment and Plan See orders <Tsering Esquivel - 08/15/18 11:10> - Attending Attestation Patient seen and examined, discussed with the medicine team. I agree with the findings and with the plan. <Brooke Peña - 08/16/18 13:41> <Tsering Esquivel - Last Filed: 08/15/18 11:03> (1) Chest pain Qualifiers: Chest pain type: precordial pain Qualified Code(s): R07.2 - Precordial pain (2) CKD (chronic kidney disease) Qualifiers: Chronic kidney disease stage: unspecified stage Qualified Code(s): N18.9 - Chronic kidney disease, unspecified (3) Diabetes Qualifiers: Diabetes mellitus type: type 2 Chronic kidney disease stage: unspecified stage (4) Leg pain Qualifiers: Laterality: left Qualified Code(s): M79.605 - Pain in left leg (5) CHF (congestive heart failure) Qualifiers: Heart failure type: unspecified Heart failure chronicity: acute on chronic Qualified Code(s): I50.9 - Heart failure, unspecified <Brooke Peña - Last Filed: 08/16/18 13:41> (1) CKD (chronic kidney disease) Qualifiers: Chronic kidney disease stage: unspecified stage Qualified Code(s): N18.9 - Chronic kidney disease, unspecified (2) Diabetes Qualifiers: Diabetes mellitus type: type 2 Chronic kidney disease stage: unspecified stage (3) CHF (congestive heart failure) Qualifiers: Heart failure type: unspecified Heart failure chronicity: acute on chronic Qualified Code(s): I50.9 - Heart failure, unspecified <Tsering Esquivel - Last Filed: 08/15/18 11:03> (1) Chest pain Qualifiers: Chest pain type: precordial pain Qualified Code(s): R07.2 - Precordial pain (2) CKD (chronic kidney disease) Qualifiers: Chronic kidney disease stage: unspecified stage Qualified Code(s): N18.9 - Chronic kidney disease, unspecified (3) Diabetes Qualifiers: Diabetes mellitus type: type 2 Chronic kidney disease stage: unspecified stage (4) Leg pain Qualifiers: Laterality: left Qualified Code(s): M79.605 - Pain in left leg (5) CHF (congestive heart failure) Qualifiers: Heart failure type: unspecified Heart failure chronicity: acute on chronic Qualified Code(s): I50.9 - Heart failure, unspecified <Casey,Brooke - Last Filed: 08/16/18 13:41> (1) CKD (chronic kidney disease) Qualifiers: Chronic kidney disease stage: unspecified stage Qualified Code(s): N18.9 - Chronic kidney disease, unspecified (2) Diabetes Qualifiers: Diabetes mellitus type: type 2 Chronic kidney disease stage: unspecified stage (3) CHF (congestive heart failure) Qualifiers: Heart failure type: unspecified Heart failure chronicity: acute on chronic Qualified Code(s): I50.9 - Heart failure, unspecified
[2018-08-15] MEDS: hydrALAZINE 10 MG Tablet PO SCH ×2 (10:40→13:54)
[2018-08-15] MEDS: Metoprolol Tartrate 50 MG Tablet PO SCH (10:42)
[2018-08-15 11:14] VITALS: BP 166/84; PULSE 99; RESP 20; TEMP 98.6; O2SAT 93
[2018-08-15] MEDS: dilTIAZem CD 180 MG Capsule PO SCH (12:42)
--- NOTE | 2018-08-15 14:41 | P.DS ---
Date of admission: 08/13/18 22:43 Primary care physician: Claudia Richard Brief History from admission: 83 y/o F, complains of left leg pain with activity x 2 days and chest tightness. She was complaining of left leg pain as well, and saying that it hurts when she walks. She started complaining of chest tightness this afternoon , and the chest tightness was constant until they got to the ED. They did not try any meds to alleviate the CP. The pt commonly feels this pressure when she has fluid buildup in her lungs. The daughter took her vitals at home and found that her O2 sat was 83-85%(baseline 95-96) and she brought her into the ED. Pt denies any N/V/sweating. She has been taking all of her medications as prescribed. Per daughter, the pt appeared to be having a more difficult time breathing than usual. She uses 2L o2 at night regularly, but over the last few days she has needed to use her O2 during the day as well. She was given a nebulizer treatment at home and that seemed to help sx as well. She has been out of the hospital for 7-8 months now, but before that she was hospitalize monthly for pulmonary fluid overload. DS: Diagnosis - Discharge Diagnosis (1) CKD (chronic kidney disease) Status: Chronic (2) Diabetes Status: Chronic (3) CHF (congestive heart failure) Status: Acute (4) Hypertension Status: Chronic (5) Atrial fibrillation Status: Acute (6) Nutrition, metabolism, and development symptoms Status: Acute DS: Medications - Discharge Medications Prescriptions: ipratropium-albuterol 1 amp NEB Q6HR NEB 30 Days #120 neb DS: Summary Hospital Course: Due to chest pain on admission, patient had ACS workup including EKG and troponins. This was negative. Her chest pain was likely due to CHF as she was treated with 20 mg Lasix BID and her breathing and chest discomfort improved immediately. She also received duoneb treatments Q6H. Upon discharge she was at her baseline O2 requirement of 2 L. Patient's glucose levels remained in the 200s and low 300s during admission. She was treated with her home Januvia and a sliding scale rapid acting insulin. She will follow up with her PCP to address better control of her diabetes. - Time Spent with Patient Total time spent providing and/or coordinating discharge services: Less than 30 minutes - Quality: VTE Deep Vein Thrombosis/Pulmonary Embolism Present on Admission: No Exam Vital signs: Vital Signs 08/14/18 15:45 08/14/18 19:40 08/14/18 19:50 Temperature 99.3 F 98.7 F Pulse Rate 113 H 80 81 Respiratory Rate 20 17 Blood Pressure 170/79 H 136/69 Pulse Oximetry 88 L 98 95 08/14/18 20:54 08/14/18 23:22 08/15/18 03:48 Temperature 98.4 F 98.3 F Pulse Rate 92 H 84 77 Respiratory Rate 24 17 16 Blood Pressure 136/63 156/67 H Pulse Oximetry 96 97 97 08/15/18 07:23 08/15/18 08:51 08/15/18 11:10 Temperature 98.4 F 98.6 F Pulse Rate 72 64 99 H Respiratory Rate 28 H 16 20 Blood Pressure 165/78 H 166/84 H Pulse Oximetry 98 93 L Intake & Output 08/14/18 08/15/18 08/15/18 18:59 06:59 18:59 Intake Total 0 / 0 900 / 900 Output Total 340 / 340 Balance 0 / 0 560 / 560 Weight 48.52 kg Intake: IV 0 / 0 NS Inj 500 ML @ 30 mls/hr IV. 0 / 0 CONT .[id number] [facility] Rx#:[id number] Oral 900 / 900 Output: Urine 340 / 340 Other: # Voids 3 Date of Last Bowel Movement 08/13/18 08/13/18 Results Procedures completed during hospitalization: none Labs on day of discharge: Labs from last 24 hours 08/15/18 08/15/18 08/15/18 12:12 10:34 06:05 WBC RBC Hgb Hct MCV MCH MCHC RDW Plt Count MPV Prelim Diff (Auto) Neut % (Auto) Lymph % (Auto) [place] % (Auto) Eos % (Auto) Baso % (Auto) Neut # (Auto) Lymph # (Auto) [place] # (Auto) Eos # (Auto) Baso # (Auto) WBC Differential Diff Scan Differential Comment Platelet Estimate Platelet Morphology Sodium 137 Potassium 3.5 Chloride 98 Carbon Dioxide 30.1 Anion Gap 9 BUN 20 H Creatinine 1.24 H Estimated GFR 41 L POC Glucose 325 H 308 H Random Glucose 204 H D Calcium 8.4 L 09/08/15/18 08/14/18 06:05 03:30 20:19 WBC 8.5 RBC 3.10 L Hgb 9.5 L Hct 26.8 L MCV 86.7 MCH 30.6 MCHC 35.3 RDW 14.5 Plt Count 88 L D MPV 9.1 Prelim Diff (Auto) Slide review pending Neut % (Auto) 65.1 Lymph % (Auto) 19.9 [place] % (Auto) 14.2 H Eos % (Auto) 0.6 Baso % (Auto) 0.2 Neut # (Auto) 5.5 Lymph # (Auto) 1.7 [place] # (Auto) 1.2 H Eos # (Auto) 0.1 Baso # (Auto) 0.0 WBC Differential . Diff Scan Auto diff confirmed Differential Comment . Platelet Estimate Low L Platelet Morphology Normal Sodium Potassium Chloride Carbon Dioxide Anion Gap BUN Creatinine Estimated GFR POC Glucose 242 H 225 H Random Glucose Calcium 08/14/18 17:37 WBC RBC Hgb Hct MCV MCH MCHC RDW Plt Count MPV Prelim Diff (Auto) Neut % (Auto) Lymph % (Auto) [place] % (Auto) Eos % (Auto) Baso % (Auto) Neut # (Auto) Lymph # (Auto) [place] # (Auto) Eos # (Auto) Baso # (Auto) WBC Differential Diff Scan Differential Comment Platelet Estimate Platelet Morphology Sodium Potassium Chloride Carbon Dioxide Anion Gap BUN Creatinine Estimated GFR POC Glucose 302 H Random Glucose Calcium - Impressions ITS Impressions Venous Doppler Study 08/13/18 20:32 CONCLUSION: No evidence of left lower extremity DVT. Chest X-Ray 08/14/18 08:44 CONCLUSION: Cardiomegaly and findings of vascular congestion without overt failure. There has been no significant change when compared to the prior exam. Discharge Plan - Discharge Disposition Patient Disposition: 01 Discharge Home - Discharge Condition Condition: Stable - Discharge Order Discharge Orders: Discharge Order (Routine); Ordered 08/15/18 Ordered By: Tsering Esquivel - Discharge Details Anticipated Discharge Date: 08/15/18 Discharge Comment: please call family to inform of discharge, OK for pickup. we have ordered home health PT - Physicians Team Primary Care Provider: Claudia Richard Attending Provider: Brooke Peña
== END 2018-08-15 14:32 | disposition home or self-care (01) ==
LOC: NEDA 20:24 → NEPC 20:24 → NEDA 08-14 00:43 → NEPFCDU 08-14 00:49
PROVIDERS: ADMIT Family Medicine; ATTEND Family Medicine

== ENCOUNTER 2018-09-12 13:41 | Observation (INO) ==
--- NOTE | 2018-09-12 15:00 | ED ---
HPI General Chief complaint: Chest Pain Stated complaint: tightness in chest/weak Time Seen by Provider: 09/12/18 13:54 Source: patient Mode of arrival: ambulatory Limitations: no limitations History of Present Illness HPI narrative: Patient is an 83-year-old female with history of CHF and COPD, who comes in complaining of shortness of breath. She was here recently and diagnosed with pneumonia. She was discharged with prescriptions for antibiotics and albuterol. She has been using these. Daughter states she has been getting better until all of a sudden, 10 minutes prior to arrival she started to feel short of breath. She says she feels a tightness in her chest. She denies any pain to her chest. She has been here multiple times in the past for this as well. She has not had any fevers recently. Severity is moderate. Related Data Home Medications Medication Instructions Recorded Confirmed apixaban [Eliquis] 2.5 mg PO BID 08/13/18 09/12/18 bumetanide 1 mg PO BID 08/13/18 09/12/18 diltiazem HCl 180 mg PO TID 08/13/18 09/12/18 metoprolol tartrate 50 mg PO BID 08/13/18 09/12/18 sitagliptin [Januvia] 100 mg PO DAILY 08/13/18 09/12/18 albuterol sulfate [ProAir HFA] 2 puff INHALATION Q4-6H PRN 09/06/18 09/12/18 arformoterol [Brovana] 15 mcg INHALATION BID 09/06/18 09/12/18 budesonide-formoterol [Symbicort] 2 puff INHALATION BID 09/06/18 09/12/18 ferrous gluconate 270 mg PO DAILY 09/06/18 09/12/18 insulin aspart U-100 [Novolog 1 sliding scale dose SUBCUT UD 09/06/18 09/12/18 PenFill U-100 Insulin] insulin degludec [Tresiba 20 unit SUBCUT DAILY 09/06/18 09/12/18 FlexTouch U-100] lisinopril 5 mg PO DAILY 09/06/18 09/12/18 metoclopramide HCl 5 mg PO TID 09/06/18 09/12/18 ranitidine HCl [Zantac] 150 mg PO DAILY 09/06/18 09/12/18 sucralfate 1 g PO Q6H 09/06/18 09/12/18 bumetanide 0.5 mg PO BID 09/12/18 09/12/18 cefdinir 300 mg PO Q12H 09/12/18 09/12/18 Previous Rx's Medication Instructions Recorded ipratropium-albuterol 1 amp NEB Q6HR NEB 30 Days #120 neb 08/15/18 azithromycin See Label Instructions .ROUTE 09/07/18 .COMPLEX #6 tab cefdinir 300 mg PO BID 10 Days #20 cap 09/07/18 Allergies Allergy/AdvReac Type Severity Reaction Status Date / Time penicillin G Allergy Severe Anaphylaxis Verified 12/11/17 18:07 levofloxacin AdvReac Severe Confusion Verified 12/11/17 18:07 Quinolones AdvReac Severe Confusion Verified 12/11/17 18:07 verapamil AdvReac Severe Nausea/Vomi Verified 12/11/17 18:07 ting Iodinated Contrast- Oral and AdvReac Unknown Verified 12/11/17 18:07 IV Dye Review of Systems ROS: all other systems reviewed are negative Constitutional Denies chills and Denies fever(s) ENT Denies dizziness Cardiovascular Denies syncope and Denies edema Respiratory Reports dyspnea Gastrointestinal Denies nausea and Denies vomiting Musculoskeletal Denies myalgias and Denies arthralgias Integumentary/Breasts Denies sores and Denies wounds Neurologic Denies focal weakness and Denies numbness PMFSH Medical History Medical History Afib (Acute) CAD (coronary artery disease) (Acute) CHF (congestive heart failure) (Acute) CKD (chronic kidney disease) (Acute) COPD (chronic obstructive pulmonary disease) (Acute) Cirrhosis (Acute) Diabetes (Acute) HTN (hypertension) (Acute) Hepatitis C (Acute) Myocardial infarction (Acute) Pacemaker (Acute) Surgical History Surgical History History of heart artery stent (Acute) Family History Family History Other HTN (hypertension) Social History Social History Substance History: No History of Abuse Second Hand Smoke Exposure: No Smoking Status: Never smoker How Often Do You Have a Drink Containing Alcohol: Never Hx Recent Travel: No Recent Travel in [facility] within the Last 8 Weeks: No Recent Out of Country Travel within the Last 8 Weeks: No Immunization History Tetanus Immunization: Unsure Exam Narrative Exam Narrative: GENERAL: Awake and alert, in no acute distress. SKIN: Focused skin assessment warm/dry. No wounds or signs of infection. HEAD: Atraumatic. Normocephalic. EYES: Pupils equal and round. No scleral icterus. ENT: Mucous membranes pink and moist. NECK: Trachea midline. No JVD. CARDIOVASCULAR: Regular rate and rhythm. No murmur appreciated. RESPIRATORY: No accessory muscle use. Decreased breath sounds bilaterally. Breath sounds equal bilaterally. GASTROINTESTINAL: Abdomen soft, non-tender, nondistended. MUSCULOSKELETAL: No obvious deformities. No clubbing. No cyanosis. No edema. NEUROLOGICAL: Awake and alert. No obvious cranial nerve deficits. Motor grossly within normal limits. Normal speech. PSYCHIATRIC: Appropriate mood and affect; insight and judgment normal. Course Initial Documented Vital Signs Temperature 99.3 F 09/12/18 13:44 Pulse Rate 90 09/12/18 13:44 Respiratory Rate 18 09/12/18 13:44 Blood Pressure 142/62 H 09/12/18 13:44 Pulse Oximetry 92 L 09/12/18 13:44 Last Documented Vital Signs Temperature 99.3 F 09/12/18 13:44 Pulse Rate 90 09/12/18 14:20 Respiratory Rate 16 09/12/18 14:20 Blood Pressure 147/71 H 09/12/18 14:16 Pulse Oximetry 100 09/12/18 14:16 Sign Out Sign Out Data: Patient Sign Out occurred on 09/12/18 at 15:49. Patient's care was discussed, and care was transferred from Bia Harden MD to Fatimah Arzate DO. Sign Out Comment: Follow up labs, imaging, disposition the patient. Last updated by Bia Harden MD at 09/12/18 15:22 Post-Handoff Eval: Patient found to have persistent PNA, reports resolution of chest tightness after duoneb. This patient cannot go home as she has pneumonia and reported hypoxia prior to arrival; case discussed with Dr. Venegas of [facility]. Patient and her daughter understand and agree with plan. Medical Decision Making MDM Narrative Medical decision making narrative: Patient is an 83-year-old female who comes in complaining of shortness of breath and chest tightness. Exam shows decreased breath sounds bilaterally. Patient does appear tachypneic as well. IV established, labs sent. Patient given 2 L via nasal cannula with some improvement. Given a DuoNeb. Chest x-ray ordered. Medical Screen Exam Complete: Yes Emergency Medical Condition: Yes Lab Data Result diagrams: 09/12/18 14:45 09/12/18 14:45 Lab Results 09/12/18 09/12/18 09/12/18 Range/Units 14:45 14:45 14:45 WBC 8.9 (4.0-11.0) th/mm3 RBC 3.41 L (4.00-5.30) mil/mm3 Hgb 10.3 L (11.6-15.3) gm/dL Hct 30.6 L (35.0-46.0) % MCV 89.9 (80.0-100.0) fL MCH 30.3 (27.0-34.0) pg MCHC 33.8 (32.0-36.0) % RDW 15.6 (11.6-17.2) % Plt Count 131 L (150-450) th/mm3 MPV 8.9 (7.0-11.0) fL Neut % (Auto) 67.4 (16.0-70.0) % Lymph % (Auto) 18.2 (9.0-44.0) % [place] % (Auto) 12.8 H (0.0-8.0) % Eos % (Auto) 1.2 (0.0-4.0) % Baso % (Auto) 0.4 (0.0-2.0) % Neut # (Auto) 6.0 (1.8-7.7) th/mm3 Lymph # (Auto) 1.6 (1.0-4.8) th/mm3 [place] # (Auto) 1.1 H (0.0-0.9) th/mm3 Eos # (Auto) 0.1 (0.0-0.4) th/mm3 Baso # (Auto) 0.0 (0.0-0.2) th/mm3 WBC Differential . Differential Comment Auto diff final PT 12.5 H (9.8-11.6) sec INR 1.2 Ratio APTT 27.2 (24.3-30.1) sec Sodium 136 (136-145) meq/L Potassium 4.4 (3.5-5.1) meq/L Chloride 100 (98-107) meq/L Carbon Dioxide 30.7 (21.0-32.0) meq/L Anion Gap 5 (5-15) meq/L BUN 20 H (7-18) mg/dL Creatinine 1.35 H (0.50-1.00) mg/dL Estimated GFR 37 L (>89) mL/min Random Glucose 146 H (74-106) mg/dL Calcium 8.4 L (8.5-10.1) mg/dL Total Bilirubin 0.8 (0.2-1.0) mg/dL AST 52 H (15-37) U/L ALT 25 (10-53) U/L Alkaline Phosphatase 82 (45-117) U/L Total Creatine Kinase 92 (26-192) U/L Troponin I Less than 0.02 L (0.02-0.05) ng/mL B-Natriuretic Peptide (0-100) pg/mL Total Protein 9.1 H (6.4-8.2) g/dL Albumin 3.0 L (3.4-5.0) g/dL 09/12/18 Range/Units 14:45 WBC (4.0-11.0) th/mm3 RBC (4.00-5.30) mil/mm3 Hgb (11.6-15.3) gm/dL Hct (35.0-46.0) % MCV (80.0-100.0) fL MCH (27.0-34.0) pg MCHC (32.0-36.0) % RDW (11.6-17.2) % Plt Count (150-450) th/mm3 MPV (7.0-11.0) fL Neut % (Auto) (16.0-70.0) % Lymph % (Auto) (9.0-44.0) % [place] % (Auto) (0.0-8.0) % Eos % (Auto) (0.0-4.0) % Baso % (Auto) (0.0-2.0) % Neut # (Auto) (1.8-7.7) th/mm3 Lymph # (Auto) (1.0-4.8) th/mm3 [place] # (Auto) (0.0-0.9) th/mm3 Eos # (Auto) (0.0-0.4) th/mm3 Baso # (Auto) (0.0-0.2) th/mm3 WBC Differential Differential Comment PT (9.8-11.6) sec INR Ratio APTT (24.3-30.1) sec Sodium (136-145) meq/L Potassium (3.5-5.1) meq/L Chloride (98-107) meq/L Carbon Dioxide (21.0-32.0) meq/L Anion Gap (5-15) meq/L BUN (7-18) mg/dL Creatinine (0.50-1.00) mg/dL Estimated GFR (>89) mL/min Random Glucose (74-106) mg/dL Calcium (8.5-10.1) mg/dL Total Bilirubin (0.2-1.0) mg/dL AST (15-37) U/L ALT (10-53) U/L Alkaline Phosphatase (45-117) U/L Total Creatine Kinase (26-192) U/L Troponin I (0.02-0.05) ng/mL B-Natriuretic Peptide 534 H (0-100) pg/mL Total Protein (6.4-8.2) g/dL Albumin (3.4-5.0) g/dL Imaging Data Radiologist's impression: Chest X-Ray 09/12/18 14:09 CONCLUSION: 1. Cardiomegaly with improved interstitial edema. 2. Improved bilateral lower lung zone airspace disease. Discharge Plan Discharge Disposition Patient Disposition: 30 Still Patient Discharge Condition Condition: Stable Discharge Details Diagnosis: Community acquired pneumonia Physicians Team ED Provider: Fatimah Arzate Primary Care Provider: Claudia Richard Rxs /Orders / Referrals /Forms Prescriptions: No Action metoclopramide HCl 5 mg Tablet 5 mg PO TID RF: 0 ranitidine HCl [Zantac] 150 mg Tablet 150 mg PO DAILY RF: 0 lisinopril 5 mg Tablet 5 mg PO DAILY RF: 0 albuterol sulfate [ProAir HFA] 90 mcg/actuation Hfa Aerosol Inhaler 2 puff INHALATION Q4-6H PRN (Reason: Bronchospasm) RF: 0 insulin aspart U-100 [Novolog PenFill U-100 Insulin] 100 unit/mL Cartridge 1 sliding scale dose SUBCUT UD RF: 0 arformoterol [Brovana] 15 mcg/2 mL Solution For Nebulization 15 mcg INHALATION BID RF: 0 budesonide-formoterol [Symbicort] 160-4.5 mcg/actuation Hfa Aerosol Inhaler 2 puff INHALATION BID RF: 0 insulin degludec [Tresiba FlexTouch U-100] 100 unit/mL (3 mL) Insulin Pen 20 unit SUBCUT DAILY RF: 0 ferrous gluconate 270 mg (27 mg iron) Tablet 270 mg PO DAILY RF: 0 sucralfate 1 gram Tablet 1 g PO Q6H RF: 0 azithromycin 250 mg tablet See Label Instructions .ROUTE .COMPLEX Qty: 6 RF: 0 cefdinir 300 mg capsule 300 mg PO BID 10 Days Qty: 20 RF: 0 metoprolol tartrate 50 mg Tablet 50 mg PO BID RF: 0 bumetanide 1 mg Tablet 1 mg PO BID RF: 0 diltiazem HCl 180 mg Capsule,Ext.Rel 24h Degradable 180 mg PO TID RF: 0 sitagliptin [Januvia] 100 mg Tablet 100 mg PO DAILY RF: 0 apixaban [Eliquis] 2.5 mg Tablet 2.5 mg PO BID RF: 0 ipratropium-albuterol 0.5 mg-3 mg(2.5 mg base)/3 mL Solution For Nebulization 1 amp NEB Q6HR NEB 30 Days Qty: 120 RF: 0 bumetanide 0.5 mg Tablet 0.5 mg PO BID RF: 0 cefdinir 300 mg Capsule 300 mg PO Q12H RF: 0 Discharge Instructions Patient Printed Instructions: Chest Pain (ED) Discharge Interventions Interventions: Vital Signs Last Done: 09/12/18 14:16 Status ED Status: With Doctor
[2018-09-12 15:20] LABS: Baso % (Auto) 0.4 % (0.0-2.0); Eos # (Auto) 0.1 th/mm3 (0.0-0.4); Eos % (Auto) 1.2 % (0.0-4.0); Hematocrit 30.6 % (35.0-46.0); Hemoglobin 10.3 gm/dL (11.6-15.3); Lymph # (Auto) 1.6 th/mm3 (1.0-4.8); Lymph % (Auto) 18.2 % (9.0-44.0); Mean Corpuscular HGB Conc 33.8 % (32.0-36.0); Mean Corpuscular Hemoglobin 30.3 pg (27.0-34.0); Mean Corpuscular Volume 89.9 fL (80.0-100.0); Mean Platelet Volume 8.9 fL (7.0-11.0); Mono # (Auto) 1.1 th/mm3 (0.0-0.9); Mono % (Auto) 12.8 % (0.0-8.0); Neut % (Auto) 67.4 % (16.0-70.0); Platelet Count 131 th/mm3 (150-450); Red Blood Count 3.41 mil/mm3 (4.00-5.30); Red Cell Distribution Width 15.6 % (11.6-17.2); White Blood Count 8.9 th/mm3 (4.0-11.0)
[2018-09-12 15:29] LABS: Activated Partial Thrombo Time 27.2 sec (24.3-30.1); INR 1.2 Ratio; Prothrombin Time 12.5 sec (9.8-11.6)
--- NOTE | 2018-09-12 15:39 | XR ---
EXAM DATE: 09/12/2018 2:09 PM EDT AGE/SEX: 83 years / Female INDICATIONS: Cough, tightness in chest CLINICAL DATA: This is the patient's initial encounter. Patient reports that signs and symptoms have been present for 1 week and indicates a pain score of Nonresponsive. MEDICAL/SURGICAL HISTORY: Chronic obstructive pulmonary disease. A-fib Pacemaker. COMPARISON: [facility], CHEST 1V SINGLE AP, 09/06/2018. . FINDINGS: Improving diffuse interstitial prominence with improved bilateral lower lung zone airspace disease. E xcellent is enlarged with stable dual lead pacemaker in place. Remainder of the exam is unchanged. CONCLUSION: 1. Cardiomegaly with improved interstitial edema. 2. Improved bilateral lower lung zone airspace disease. Electronically signed by: Max Bennett MD 09/12/2018 3:38 PM EDT
[2018-09-12 16:00] LABS: Aspartate Aminotransferase 52 U/L (15-37); Glomerular Filtration Rate 37 mL/min (>89)
[2018-09-12 16:01] LABS: Alanine Aminotransferase 25 U/L (10-53)
[2018-09-12] MEDS ORDERED: Azithromycin Inj 500 MG in Sodium Chlor 0.9% Inj 250 ML IV.SIG ONE (16:04)
[2018-09-12 16:15] LABS: Alkaline Phosphatase 82 U/L (45-117); Anion Gap 5 meq/L (5-15); Blood Urea Nitrogen 20 mg/dL (7-18); Calcium 8.4 mg/dL (8.5-10.1); Carbon Dioxide 30.7 meq/L (21.0-32.0); Chloride 100 meq/L (98-107); Creatine Kinase 92 U/L (26-192); Glucose,Random 146 mg/dL (74-106); Potassium 4.4 meq/L (3.5-5.1); Sodium 136 meq/L (136-145); Total Protein 9.1 g/dL (6.4-8.2)
--- NOTE | 2018-09-12 17:29 | P.HPIM ---
History of Present Illness Primary Care Physician: Claudia Richard History of Present Illness: Mrs. Ortiz is an 83-year-old Indonesian-speaking female. She has a past history of pneumonia. She was treated for this approximately 4 weeks ago. Since this time she has had improvement. Underlying medical conditions include CHF and COPD. She says in the past 24 hours she has had an acute onset of shortness of breath and related to this she says her chest was tight. She denies any central chest pain or nausea or diaphoresis. She was found to be hypoxic upon arrival and with oxygen supplementation she has resolution of her shortness of breath and chest tightness. Chest x-ray shows improvement in areas of prior pneumonia but an overall bilateral pulmonary edema which is indicative of CHF exacerbation. Additionally she has a mild exacerbation of her COPD. With a breathing treatment in the ER she had improvement in her oxygenation. No other complaints tonight. - Diagnosis (1) CHF exacerbation (2) COPD exacerbation (3) Hypoxia (4) CHF (congestive heart failure) Review of Systems Constitutional: No fevers, no chills no night sweats, no fatigue, no weakness Eyes: No eye pain, no blurry vision, no loss of vision ENT: No sore throat, no ear pain, no rhinorrhea Cardiovascular: No chest pain, no tachycardia, no palpitations, shortness of breath, no syncope Respiratory: No wheezing, no cough, shortness of breath Gastrointestinal: No abdominal pain, no black tarry stools, no bright red blood per rectum, no vomiting, no diarrhea Musculoskeletal: No joint pain, no muscle cramps, no stiffness Integumentary: No rash, no ulcers, no drainage Neurologic: No sensory loss, no loss of motor function, no dizziness Psychiatric: No behavioral changes, no hallucinations, no suicidal ideations PMFSH - History History Provided By: Patient - Medical History Medical History: Medical History (Last Reviewed 09/12/18 @ 14:58 by Bia Harden MD) Afib CAD (coronary artery disease) CHF (congestive heart failure) CKD (chronic kidney disease) COPD (chronic obstructive pulmonary disease) Cirrhosis Diabetes HTN (hypertension) Hepatitis C Myocardial infarction Pacemaker - Surgical History Surgical History: Surgical History (Last Reviewed 09/12/18 @ 14:58 by Bia Harden MD) History of heart artery stent - Family History Family History: Family History (Last Reviewed 09/12/18 @ 14:58 by Bia Harden MD) Other HTN (hypertension) - Tobacco History Second Hand Smoke Exposure: No Smoking Status: Never smoker - Alcohol History How Often Do You Have a Drink Containing Alcohol: Never - Substance Use History Substance History: No History of Abuse - Travel History History of Recent Travel: No Recent Travel in the [place] Within the Last 8 Weeks: No Recent Travel Out of the Country Within the Last 8 Weeks: No - Immunization History Tetanus Immunization: Unsure Medications and Allergies Active Medications: Active Medications Al Hydroxide/Mg Hydroxide (Milk Of Jaya Liq) 30 ml PO Q12H PRN PRN Reason: Mild Constipation Albuterol (Ventolin Hfa Inh) 2 puff INH Q4-6H PRN PRN Reason: Bronchospasm Albuterol (Albuterol Neb (Prn)) 2.5 mg NEB Q4HR NEB PRN PRN Reason: SOB or Wheezing Albuterol (Duoneb Neb (Prn)) 1 ampul NEB Q6H SHAKIRA Apixaban (Eliquis) 2.5 mg PO BID SHAKIRA Budesonide/Formoterol Fumarate (Symbicort 160/4.5 Mcg Inh) 2 puff INH BID SHAKIRA Furosemide (Lasix Inj) 40 mg IV.PUSH BID@0900,1800 SHAKIRA Lisinopril (Prinivil) 5 mg PO DAILY SHAKIRA Metoprolol Tartrate (Lopressor) 50 mg PO BID SHAKIRA Non-Formulary Medication (Arformoterol [Brovana]) 15 mcg INHALATION BID SHAKIRA Non-Formulary Medication (Ferrous Gluconate [Ferrous Gluconate]) 270 mg PO DAILY SHAKIRA Non-Formulary Medication (Insulin Degludec [Tresiba Flextouch U-100]) 20 unit SQ DAILY SHAKIRA Non-Formulary Medication (Metoclopramide Hcl [Metoclopramide Hcl]) 5 mg PO TID SHAKIRA Non-Formulary Medication (Ranitidine Hcl [Zantac]) 150 mg PO DAILY SHAKIRA Non-Formulary Medication (Diltiazem Hcl [Diltiazem Hcl]) 180 mg PO TID SHAKIRA Ondansetron HCl (Zofran Inj) 4 mg IV.PUSH Q6H PRN PRN Reason: NAUSEA OR VOMITING Sitagliptin Phosphate (Januvia) 100 mg PO DAILY SHAKIRA Sodium Chloride (Ns Flush) 2 ml IV.FLUSH UNSCH PRN PRN Reason: FLUSH AFTER USING IV ACCESS Sucralfate (Carafate) 1 gm PO Q6H SHAKIRA Allergies Allergy/AdvReac Type Severity Reaction Status Date / Time penicillin G Allergy Severe Anaphylaxis Verified 12/11/17 18:07 levofloxacin AdvReac Severe Confusion Verified 12/11/17 18:07 Quinolones AdvReac Severe Confusion Verified 12/11/17 18:07 verapamil AdvReac Severe Nausea/Vomi Verified 12/11/17 18:07 ting Iodinated Contrast- Oral and AdvReac Unknown Verified 12/11/17 18:07 IV Dye Home Medications Medication Instructions Recorded Confirmed Type apixaban [Eliquis] 2.5 mg PO BID 08/13/18 09/12/18 History bumetanide 1 mg PO BID 08/13/18 09/12/18 History diltiazem HCl 180 mg PO TID 08/13/18 09/12/18 History metoprolol tartrate 50 mg PO BID 08/13/18 09/12/18 History sitagliptin [Januvia] 100 mg PO DAILY 08/13/18 09/12/18 History albuterol sulfate [ProAir HFA] 2 puff INHALATION Q4-6H PRN 09/06/18 09/12/18 History arformoterol [Brovana] 15 mcg INHALATION BID 09/06/18 09/12/18 History budesonide-formoterol [Symbicort] 2 puff INHALATION BID 09/06/18 09/12/18 History ferrous gluconate 270 mg PO DAILY 09/06/18 09/12/18 History insulin aspart U-100 [Novolog 1 sliding scale dose SUBCUT UD 09/06/18 09/12/18 History PenFill U-100 Insulin] insulin degludec [Tresiba 20 unit SUBCUT DAILY 09/06/18 09/12/18 History FlexTouch U-100] lisinopril 5 mg PO DAILY 09/06/18 09/12/18 History metoclopramide HCl 5 mg PO TID 09/06/18 09/12/18 History ranitidine HCl [Zantac] 150 mg PO DAILY 09/06/18 09/12/18 History sucralfate 1 g PO Q6H 09/06/18 09/12/18 History bumetanide 0.5 mg PO BID 09/12/18 09/12/18 History cefdinir 300 mg PO Q12H 09/12/18 09/12/18 History Exam Vital signs: Vital Signs 09/12/18 13:44 09/12/18 14:09 09/12/18 14:16 Temperature 99.3 F Pulse Rate 90 81 Respiratory Rate 18 16 Blood Pressure 142/62 H 147/71 H Pulse Oximetry 92 L 100 100 09/12/18 14:20 Temperature Pulse Rate 90 Respiratory Rate 16 Blood Pressure Pulse Oximetry Intake & Output 09/11/18 09/12/18 09/12/18 18:59 06:59 18:59 Weight 49.895 kg Narrative: GENERAL: NAD, A&Ox3 HEAD: Normocephalic. NECK: Supple, trachea midline. No lymphadenopathy. EYES: No scleral icterus. No injection or drainage. CARDIOVASCULAR: Regular rate and rhythm without murmurs, gallops, or rubs. RESPIRATORY: Breath sounds equal bilaterally. No accessory muscle use. Crackles at bases bilaterally. No wheezing. GASTROINTESTINAL: Abdomen soft, non-tender, nondistended. MUSCULOSKELETAL: No cyanosis, or edema. SKIN: Warm and dry. NEURO: No focal neurological deficits. Results - Labs CBC & Chem 7: 09/12/18 14:45 09/12/18 14:45 Labs: Short CBC 09/12/18 Range/Units 14:45 WBC 8.9 (4.0-11.0) th/mm3 Hgb 10.3 L (11.6-15.3) gm/dL Hct 30.6 L (35.0-46.0) % Plt Count 131 L (150-450) th/mm3 [facility] 09/12/18 14:45 Sodium 136 Potassium 4.4 Chloride 100 Carbon Dioxide 30.7 BUN 20 H Creatinine 1.35 H Calcium 8.4 L Cardiac Enzymes 09/12/18 Range/Units 14:45 Total Creatine Kinase 92 (26-192) U/L Troponin I Less than 0.02 L (0.02-0.05) ng/mL Liver Function 09/12/18 Range/Units 14:45 Total Bilirubin 0.8 (0.2-1.0) mg/dL AST 52 H (15-37) U/L ALT 25 (10-53) U/L Alkaline Phosphatase 82 (45-117) U/L Albumin 3.0 L (3.4-5.0) g/dL - Imaging Impressions Chest X-Ray 09/12/18 14:09 CONCLUSION: 1. Cardiomegaly with improved interstitial edema. 2. Improved bilateral lower lung zone airspace disease. Caprini VTE Risk Assessment Caprini VTE Risk Assessment: No/Low Risk (score <= 1) Caprini Risk Assessment Model: Point Value = 1 Point Value = 2 Point Value = 3 Point Value = 5 Age 41-60 Minor surgery BMI > 25 kg/m2 Swollen legs Varicose veins or History of unexplained or recurrent spontaneous Oral contraceptives or hormone replacement Sepsis (< 1 month) Serious lung disease, including pneumonia (< 1 month) Abnormal pulmonary function Acute myocardial infarction Congestive heart failure (< 1 month) History of inflammatory bowel disease Medical patient at bed rest Age 61-74 Arthroscopic surgery Major open surgery (> 45 min) Laparoscopic surgery (> 45 min) Malignancy Confined to bed (> 72 hours) Immobilizing plaster cast Central venous access Age >= 75 History of VTE Family history of VTE Factor V Leiden Prothrombin [id number] Lupus anticoagulant Anticardiolipin antibodies Elevated serum homocysteine Heparin-induced thrombocytopenia Other congenital or acquired thrombophilia Stroke (< 1 month) Elective arthroplasty Hip, pelvis, or leg fracture Acute spinal cord injury (< 1 month) Prophylaxis Regimen: Total Risk Factor Score Risk Level Prophylaxis Regimen 0-1 Low Early ambulation 2 Moderate Order ONE of the following: *Sequential Compression Device (SCD) *Heparin 5000 units SQ BID 3-4 Higher Order ONE of the following medications: *Heparin 5000 units SQ TID *Enoxaparin/Lovenox 40 mg SQ daily (WT < 150 kg, CrCl > 30 mL/min) *Enoxaparin/Lovenox 30 mg SQ daily (WT < 150 kg, CrCl > 10-29 mL/min) *Enoxaparin/Lovenox 30 mg SQ BID (WT < 150 kg, CrCl > 30 mL/min) AND/OR *Sequential Compression Device (SCD) 5 or more Highest Order ONE of the following medications: *Heparin 5000 units SQ TID (Preferred with Epidurals) *Enoxaparin/Lovenox 40 mg SQ daily (WT < 150 kg, CrCl > 30 mL/min) *Enoxaparin/Lovenox 30 mg SQ daily (WT < 150 kg, CrCl > 10-29 mL/min) *Enoxaparin/Lovenox 30 mg SQ BID (WT < 150 kg, CrCl > 30 mL/min) AND *Sequential Compression Device (SCD) Assessment and Plan - Assessment (1) CHF exacerbation Code(s): I50.9 - Heart failure, unspecified Status: Acute (2) COPD exacerbation Code(s): J44.1 - Chronic obstructive pulmonary disease with (acute) exacerbation Status: Acute (3) Hypoxia Code(s): R09.02 - Hypoxemia Status: Acute (4) CHF (congestive heart failure) Code(s): I50.9 - Heart failure, unspecified Status: Acute - Plan 83-year-old female admitted secondary to COPD and CHF exacerbation Pulmonary edema Diastolic CHF exacerbation Hold baseline diuretics Start Lasix IV 40 mg twice daily Monitor clinically for improvement in pulmonary edema COPD exacerbation Hypoxia Mild Continue baseline breathing treatments DuoNeb scheduled As needed albuterol Oxygen supplementation as needed Follow for improvement Diabetes mellitus type 2 Follow blood sugars Insulin sliding scale Diabetic diet Continue baseline long-acting insulin Hypertension Continue baseline treatment Follow blood pressures Adjust treatments as needed CKD (chronic kidney disease) Cirrhosis Hepatitis C No exacerbation of these conditions Follow clinically Coronary artery disease Myocardial infarction Pacemaker Atrial fibrillation No chest pain reported 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
[2018-09-12] MEDS ORDERED: Non-Formulary Drug (Metoclopramide Hcl [Metoclopramide Hcl] 5 MG) PO SCH (18:00)
[2018-09-12] MEDS ORDERED: Non-Formulary Drug (Diltiazem Hcl [Diltiazem Hcl] 180 MG) PO SCH (18:00)
[2018-09-12] MEDS: Sucralfate 1 GM Tablet PO SCH (18:45)
[2018-09-12] MEDS ORDERED: [UNRECOGNIZED DRUG - OTHER] INH SCH (21:00)
[2018-09-12] MEDS: Famotidine 20 MG Tablet PO SCH (21:09)
[2018-09-12] MEDS: Metoprolol Tartrate 50 MG Tablet PO SCH (21:09)
[2018-09-12] MEDS: Budesonide-Formoterol 160/4.5 MCG 6 GM Inhaler INH SCH (21:09)
[2018-09-12 22:20] LABS: Creatine Kinase 87 U/L (26-192)
[2018-09-13] MEDS: Sucralfate 1 GM Tablet PO SCH ×5 (03:30→23:06)
[2018-09-13 04:53] LABS: Creatine Kinase 87 U/L (26-192)
[2018-09-13] MEDS ORDERED: FERROUS GLUCONATE 270 MG PO SCH (09:00)
[2018-09-13] MEDS ORDERED: [UNRECOGNIZED DRUG - OTHER] SQ SCH (09:00)
[2018-09-13] MEDS: dilTIAZem CD 180 MG Capsule PO SCH (09:52)
[2018-09-13] MEDS: Lisinopril 5 MG Tablet PO SCH (09:52)
[2018-09-13] MEDS: Metoclopramide 10 MG Tablet PO SCH ×3 (09:52→17:45)
[2018-09-13] MEDS: Metoprolol Tartrate 50 MG Tablet PO SCH ×2 (09:53→21:24)
[2018-09-13] MEDS: Famotidine 20 MG Tablet PO SCH ×2 (09:53→21:23)
[2018-09-13] MEDS: Budesonide-Formoterol 160/4.5 MCG 6 GM Inhaler INH SCH ×2 (10:00→21:24)
--- NOTE | 2018-09-13 16:34 | P.PNIM ---
Subjective Interval history: Patient is currently sitting upright in bed comfortably eating breakfast. She currently does not have any complaints and says her shortness of breath has improved somewhat since yesterday. Physical Exam Vital signs: Vital Signs 09/12/18 17:19 09/12/18 17:30 09/12/18 18:49 Temperature Pulse Rate 84 84 95 H Respiratory Rate 16 18 Blood Pressure 138/68 134/69 Pulse Oximetry 96 97 09/12/18 19:57 09/12/18 20:03 09/12/18 20:06 Temperature 98.8 F Pulse Rate 91 H 92 H Respiratory Rate 17 18 Blood Pressure 145/74 H Pulse Oximetry 99 97 09/13/18 00:00 09/13/18 03:26 09/13/18 04:28 Temperature 98.8 F 98.7 F Pulse Rate 78 98 H 89 Respiratory Rate 16 16 16 Blood Pressure 151/72 H 150/90 H Pulse Oximetry 99 99 09/13/18 08:00 09/13/18 08:59 09/13/18 10:59 Temperature 98.5 F Pulse Rate 95 H 104 H Respiratory Rate 18 20 Blood Pressure 143/84 H Pulse Oximetry 95 99 09/13/18 12:20 09/13/18 16:32 Temperature 98.0 F 98.4 F Pulse Rate 95 H 92 H Respiratory Rate 18 18 Blood Pressure 137/84 143/62 H Pulse Oximetry 99 97 Intake & Output 09/12/18 09/13/18 09/13/18 18:59 06:59 18:59 Intake Total 200 / 200 150 / 150 Balance 200 / 200 150 / 150 Weight 49.895 kg Intake: IV 200 / 200 150 / 150 Azithromycin Inj 500 MG In NS 100 / 100 150 / 150 Inj 250 ML @ 250 mls/hr IV.SIG ONCE ONE Rx#:[id number] Rocephin Inj 1,000 MG In NS Inj 100 / 100 100 ML @ 200 mls/hr IV.SIG ONCE ONE Rx#:[id number] Other: Date of Last Bowel Movement 09/12/18 09/12/18 09/13/18 Narrative: General patient in no acute distress HEENT extraocular movements are intact, clear oropharyngeal mucosa, no JVD Cardiovascular S1-S2 audible, RRR, no murmurs rubs or gallops Respiratory bibasilar crackles bilaterally, on supplemental oxygen. Abdomen soft, nontender, nondistended, normal bowel sounds Extremities trace edema bilateral lower extremities up to the shins. Neuro patient moves all 4 extremities sensation is intact bilaterally Results - Labs CBC & Chem 7: 09/12/18 14:45 09/12/18 14:45 Laboratory Results - last 24 hr 09/12/18 09/13/18 20:38 04:10 Total Creatine Kinase 87 87 Troponin I Less than 0.02 L Less than 0.02 L Assessment and Plan - Assessment (1) CHF exacerbation Code(s): I50.9 - Heart failure, unspecified Status: Acute (2) COPD exacerbation Code(s): J44.1 - Chronic obstructive pulmonary disease with (acute) exacerbation Status: Acute (3) Hypoxia Code(s): R09.02 - Hypoxemia Status: Acute (4) CHF (congestive heart failure) Code(s): I50.9 - Heart failure, unspecified Status: Acute - Plan Code Status: 83-year-old female admitted secondary to COPD and CHF exacerbation 1. Acute CHF exacerbation, preserved ejection fraction Patient presented with complaints of shortness of breath, she uses 2 L of supplemental oxygen for COPD. Chest x-ray done which shows pulmonary vascular congestion. Cardiac enzymes and troponins are negative. EKG shows some T wave inversions in 2 3 aVF, as well as T wave inversions in the lateral leads which were seen on previous EKGs a proximally 1 week ago. Patient is currently on IV Lasix. We will continue Lasix for now and reassess the patient tomorrow. The patient's symptoms have resolved by tomorrow she will possibly be discharged tomorrow. 2. COPD No wheezing on physical examination. The patient is currently on 2 L of supplemental oxygen which she uses at baseline. Continue breathing treatments as needed. Continue 2 L of supplemental oxygen which the patient uses at baseline. 3. Diabetes mellitus type 2 Continue to monitor Accu-Cheks q. before meals and at bedtime. Continue basal insulin and low-dose insulin sliding scale. 4. Hypertension Continue the patient's current blood pressure medications. Her blood pressure medication will be adjusted as needed. 5. CKD Current serum creatinine is around 1.3 which appears to be the patient's baseline. 6. Atrial fibrillation/coronary artery disease Continue current medication regimen. Patient's heart rate is currently under control. Continue current medications including anticoagulation. DVT prophylaxis, patient is on Eliquis. (4) CHF (congestive heart failure) Qualifiers:
--- NOTE | 2018-09-13 20:01 | ECG ---
Date Performed: 09/12/2018 Time Performed: 14:15:15 PTAGE: 83 years EKG: Atrial fibrillation with demand pacing ELECTRONIC VENTRICULAR PACEMAKER -- CONTOUR ANALYSIS BASED ON INTRINSIC RHYTHM ST DEVIATION AND MODERATE T-WAVE ABNORMALITY, CONSIDER LATERAL ISCHEMIA ST DEVIATION AND MODERATE T-WAVE ABNORMALITY, CONSIDER INFERIOR ISCHEMIA When compared to previous trac ing, ventricular response atrial Fibrillation is slower. ABNORMAL ECG PREVIOUS TRACING : 09/06/2018 21.15 DOCTOR: Bernardo Montalvo Interpretating Date/Time 09/13/2018 20:00:51
--- NOTE | 2018-09-13 20:03 | ECG ---
Date Performed: 09/12/2018 Time Performed: 15:18:04 PTAGE: 83 years EKG: Atrial fibrillation with demand pacing. ELECTRONIC VENTRICULAR PACEMAKER -- CONTOUR ANALYSI S BASED ON INTRINSIC RHYTHM ST DEVIATION AND MODERATE T-WAVE ABNORMALITY, CONSIDER LATERAL ISCHEMIA S T DEVIATION AND MODERATE T-WAVE ABNORMALITY, CONSIDER INFERIOR ISCHEMIA Since previous tracing, no si gnificant change noted ABNORMAL ECG PREVIOUS TRACING : 09/12/2018 14.15.15 DOCTOR: Bernardo Montalvo Interpretating Date/Time 09/13/2018 20:02:19
--- NOTE | 2018-09-13 20:05 | ECG ---
Date Performed: 09/13/2018 Time Performed: 03:26:32 PTAGE: 83 years EKG: ATRIAL FIBRILLATION with demand pacing. ST DEVIATION AND MODERATE T-WAVE ABNORMALITY, CONSI [place] LATERAL ISCHEMIA ST DEVIATION AND MODERATE T-WAVE ABNORMALITY, CONSIDER INFERIOR ISCHEMIA Since p revious tracing, no significant change noted ABNORMAL ECG PREVIOUS TRACING : 09/12/2018 22.39 DOCTOR: Bernardo Montalvo Interpretating Date/Time 09/13/2018 20:04:34
--- NOTE | 2018-09-13 20:05 | ECG ---
Date Performed: 09/12/2018 Time Performed: 22:39:47 PTAGE: 83 years EKG: ATRIAL FIBRILLATION with demand pacing. ST DEVIATION AND MODERATE T-WAVE ABNORMALITY, CONSI [place] INFERIOR ISCHEMIA Since previous tracing, no significant change noted ABNORMAL ECG PREVIOUS TRACING : 09/12/2018 15.18 DOCTOR: Bernardo Montalvo Interpretating Date/Time 09/13/2018 20:03:33
[2018-09-14] MEDS: Sucralfate 1 GM Tablet PO SCH ×4 (06:20→22:35)
[2018-09-14 07:42] LABS: INR 1.3 Ratio; Prothrombin Time 12.7 sec (9.8-11.6)
[2018-09-14] MEDS: Metoprolol Tartrate 50 MG Tablet PO SCH ×2 (09:05→22:36)
[2018-09-14] MEDS: Famotidine 20 MG Tablet PO SCH ×2 (09:05→22:34)
[2018-09-14] MEDS: Lisinopril 5 MG Tablet PO SCH (09:06)
[2018-09-14] MEDS: Budesonide-Formoterol 160/4.5 MCG 6 GM Inhaler INH SCH ×2 (09:06→22:34)
[2018-09-14] MEDS: dilTIAZem CD 180 MG Capsule PO SCH (09:06)
[2018-09-14] MEDS: Metoclopramide 10 MG Tablet PO SCH ×3 (09:06→17:56)
[2018-09-14] MEDS ORDERED: Metoprolol Inj 5 MG/5 ML Vial IV.PUSH ONE (11:30)
[2018-09-14] MEDS: dilTIAZem Inj 125 MG in Sodium Chlor 0.9% Inj 100 ML IV.CONT PRN (12:50)
[2018-09-14 14:09] LABS: Hematocrit 30.8 % (35.0-46.0); Hemoglobin 10.4 gm/dL (11.6-15.3)
[2018-09-14 14:26] LABS: Carbon Dioxide 29.1 meq/L (21.0-32.0); Magnesium 1.9 mg/dL (1.5-2.5); Potassium 3.6 meq/L (3.5-5.1)
--- NOTE | 2018-09-14 16:44 | P.PNIM ---
Subjective Interval history: Patient does not appear to be in any acute distress. She denies any palpitations. No shortness of breath. Physical Exam Vital signs: Vital Signs 09/13/18 17:02 09/13/18 20:00 09/13/18 20:40 Temperature 98.7 F Pulse Rate 80 114 H 102 H Respiratory Rate 16 15 20 Blood Pressure 153/80 H Pulse Oximetry 92 L 95 09/14/18 00:00 09/14/18 02:54 09/14/18 04:00 Temperature 97.9 F 98.2 F Pulse Rate 108 H 91 H 99 H Respiratory Rate 16 18 16 Blood Pressure 141/80 H 144/76 H Pulse Oximetry 100 100 09/14/18 05:38 09/14/18 09:21 09/14/18 11:38 Temperature 98.0 F Pulse Rate 92 H 50 L 146 H Respiratory Rate 14 18 Blood Pressure 146/87 H Pulse Oximetry 100 100 09/14/18 12:41 09/14/18 13:00 09/14/18 14:00 Temperature 98.8 F Pulse Rate 118 H 106 H 112 H Respiratory Rate 18 Blood Pressure 157/94 H Pulse Oximetry 98 09/14/18 15:10 09/14/18 15:11 Temperature Pulse Rate 90 Respiratory Rate 18 Blood Pressure Pulse Oximetry 99 Intake & Output 09/13/18 09/14/18 09/14/18 18:59 06:59 18:59 Output Total 320 / 320 Balance -320 / -320 Weight 49.8 kg Output: Urine 320 / 320 Other: Date of Last Bowel Movement 09/13/18 09/13/18 09/14/18 # Bowel Movements 1 Narrative: General patient in no acute distress HEENT extraocular movements are intact, clear oropharyngeal mucosa, no JVD Cardiovascular S1-S2 audible, RRR, no murmurs rubs or gallops Respiratory bibasilar crackles bilaterally, on supplemental oxygen. Abdomen soft, nontender, nondistended, normal bowel sounds Extremities trace edema bilateral lower extremities up to the shins. Neuro patient moves all 4 extremities sensation is intact bilaterally Results - Labs CBC & Chem 7: 09/14/18 13:31 09/14/18 13:31 Laboratory Results - last 24 hr 09/14/18 09/14/18 09/14/18 07:21 07:21 13:31 Hgb Hct PT 12.7 H INR 1.3 Sodium 133 L Potassium 3.6 D Chloride 98 Carbon Dioxide 29.1 Anion Gap 6 BUN 19 H Creatinine 1.35 H Estimated GFR 37 L Random Glucose 275 H D Calcium 8.0 L Magnesium 2.0 1.9 09/14/18 13:31 Hgb 10.4 L Hct 30.8 L PT INR Sodium Potassium Chloride Carbon Dioxide Anion Gap BUN Creatinine Estimated GFR Random Glucose Calcium Magnesium Assessment and Plan - Assessment (1) CHF exacerbation Code(s): I50.9 - Heart failure, unspecified Status: Acute (2) COPD exacerbation Code(s): J44.1 - Chronic obstructive pulmonary disease with (acute) exacerbation Status: Acute (3) Hypoxia Code(s): R09.02 - Hypoxemia Status: Acute (4) CHF (congestive heart failure) Code(s): I50.9 - Heart failure, unspecified Status: Acute - Plan 83-year-old female admitted secondary to COPD and CHF exacerbation 1. Atrial fibrillation with rapid ventricular rate The patient was scheduled to be discharged today however she was found to be in her room and had taken off her supplemental oxygen which she uses at baseline. Telemetry showed the patient had a heart rate in the 150s. She was given a push of Lopressor which no improvement of her heart rate, she was then given a push of Cardizem again without any significant improvement in her heart rate. Transfer orders to the [facility] unit were put in and the patient was started on a Cardizem drip. I reevaluated the patient after she was transferred and her heart rate is now in the 90s. I believe the patient's RVR was possibly due to hypoxia when the patient removed her supplemental oxygen. She is now on 2-3 L of supplemental oxygen. If her heart rate remains stable tonight overnight she will likely be discharged tomorrow a.m. Continue Eliquis. 2. Acute CHF exacerbation, preserved ejection fraction Patient presented with complaints of shortness of breath, she uses 2 L of supplemental oxygen for COPD. Chest x-ray done which shows pulmonary vascular congestion. Cardiac enzymes and troponins are negative. EKG shows some T wave inversions in 2 3 aVF, as well as T wave inversions in the lateral leads which were seen on previous EKGs a proximally 1 week ago. Patient's IV Lasix were stopped today. She will be transitioned to p.o. Lasix. She is scheduled for discharge tomorrow. 3. COPD No wheezing on physical examination. The patient is currently on 2 L of supplemental oxygen which she uses at baseline. Continue breathing treatments as needed. Continue 2 L of supplemental oxygen which the patient uses at baseline. 4. Diabetes mellitus type 2 Continue to monitor Accu-Cheks q. before meals and at bedtime. Continue basal insulin and low-dose insulin sliding scale. 5. Hypertension Continue the patient's current blood pressure medications. Her blood pressure medication will be adjusted as needed. 6. CKD Patient serum creatinine was around 1.3 which appears to be the patient's baseline. DVT prophylaxis, patient is on Eliquis. (4) CHF (congestive heart failure) Qualifiers:
[2018-09-15] MEDS: dilTIAZem Inj 125 MG in Sodium Chlor 0.9% Inj 100 ML IV.CONT PRN (06:20)
[2018-09-15] MEDS: Sucralfate 1 GM Tablet PO SCH ×2 (06:28→11:26)
[2018-09-15] MEDS: Metoprolol Tartrate 50 MG Tablet PO SCH (09:29)
[2018-09-15] MEDS: Lisinopril 5 MG Tablet PO SCH (09:29)
[2018-09-15] MEDS: dilTIAZem CD 180 MG Capsule PO SCH (09:30)
[2018-09-15] MEDS: Famotidine 20 MG Tablet PO SCH (09:30)
[2018-09-15] MEDS: Metoclopramide 10 MG Tablet PO SCH ×2 (09:30→13:04)
[2018-09-15] MEDS: Budesonide-Formoterol 160/4.5 MCG 6 GM Inhaler INH SCH (09:31)
[2018-09-15 09:54] VITALS: RESP 18
[2018-09-15 12:10] VITALS: BP 139/79; TEMP 98.4; O2SAT 95
--- NOTE | 2018-09-15 14:18 | P.DS ---
Date of admission: 09/12/18 17:31 Primary care physician: Claudia Richard Brief History from admission: HPI as documented by the admitting physician: Mrs. Ortiz is an 83-year-old Sammarinese-speaking female. She has a past history of pneumonia. She was treated for this approximately 4 weeks ago. Since this time she has had improvement. Underlying medical conditions include CHF and COPD. She says in the past 24 hours she has had an acute onset of shortness of breath and related to this she says her chest was tight. She denies any central chest pain or nausea or diaphoresis. She was found to be hypoxic upon arrival and with oxygen supplementation she has resolution of her shortness of breath and chest tightness. Chest x-ray shows improvement in areas of prior pneumonia but an overall bilateral pulmonary edema which is indicative of CHF exacerbation. Additionally she has a mild exacerbation of her COPD. With a breathing treatment in the ER she had improvement in her oxygenation. No other complaints tonight. Patient update on day of discharge: Patient reports she is feeling okay. She is anxious to go home. Discussed with her daughter at bedside. DS: Diagnosis - Discharge Diagnosis (1) COPD exacerbation Status: Acute (2) Community acquired pneumonia Status: Acute (3) Hypoxia Status: Acute (4) Diabetes Status: Chronic (5) Hypertension Status: Chronic DS: Medications - Discharge Medications Prescriptions: bumetanide 1 mg PO BID #60 tab DS: Summary Hospital Course: 83-year-old female admitted for acute on chronic respiratory failure secondary to COPD, concern for CHF exacerbation. Evaluation and treatment course detailed below: 1. Atrial fibrillation with rapid ventricular rate -Patient went into A. fib with RVR taking off her oxygen. Once she was back on oxygen, her heart rate became controlled. -Patient to continue home dose Cardizem, Lopressor, and Eliquis. -The patient is oxygen dependent. She was advised to use oxygen at all time. She voiced understanding. I discussed this with her daughter as well. 2. Acute on chronic respiratory failure: Likely due to COPD exacerbation and pulmonary hypertension Patient presented with complaints of shortness of breath, she uses 2 L of supplemental oxygen for COPD. Chest x-ray done which shows pulmonary vascular congestion. Cardiac enzymes and troponin are negative. EKG shows some T wave inversions in 2 3 aVF, as well as T wave inversions in the lateral leads which were seen on previous EKGs a proximally 1 week ago. A 2D echocardiogram revealed pulmonary hypertension, preserved EF. She will continue home dose Bumex. 3. COPD/pulmonary hypertension No wheezing on physical examination. Continue breathing treatments as needed. Oxygen dependent. Outpatient follow-up with pulmonology as advised. 4. Diabetes mellitus type 2 Continue to monitor Accu-Cheks q. before meals and at bedtime. Continue basal insulin and low-dose insulin sliding scale. 5. Hypertension Continue the patient's current blood pressure medications. 6. CKD Patient serum creatinine was around 1.3 which appears to be the patient's baseline. - Time Spent with Patient Total time spent providing and/or coordinating discharge services: Greater than 30 minutes - Quality: VTE Deep Vein Thrombosis/Pulmonary Embolism Present on Admission: No Exam Vital signs: Vital Signs 09/14/18 15:00 09/14/18 15:10 09/14/18 15:11 Temperature Pulse Rate 95 H 90 Respiratory Rate 18 Blood Pressure Pulse Oximetry 99 09/14/18 16:00 09/14/18 17:00 09/14/18 18:00 Temperature 98.4 F Pulse Rate 96 H 96 H 98 H Respiratory Rate 18 Blood Pressure 152/84 H Pulse Oximetry 98 09/14/18 19:00 09/14/18 20:00 09/14/18 20:41 Temperature Pulse Rate 94 H 132 H 58 L Respiratory Rate 18 18 Blood Pressure 137/78 Pulse Oximetry 96 96 09/14/18 21:00 09/14/18 22:00 09/14/18 23:00 Temperature Pulse Rate 98 H 98 H 86 Respiratory Rate Blood Pressure Pulse Oximetry 09/15/18 00:00 09/15/18 01:00 09/15/18 02:00 Temperature Pulse Rate 68 78 80 Respiratory Rate 16 Blood Pressure 145/89 H Pulse Oximetry 98 09/15/18 03:00 09/15/18 03:07 09/15/18 04:00 Temperature Pulse Rate 82 85 97 H Respiratory Rate 18 16 Blood Pressure Pulse Oximetry 99 09/15/18 05:00 09/15/18 06:00 09/15/18 08:00 Temperature 98.3 F Pulse Rate 82 87 83 Respiratory Rate 18 Blood Pressure 139/85 Pulse Oximetry 99 09/15/18 10:41 09/15/18 10:42 09/15/18 12:00 Temperature 98.4 F Pulse Rate 87 88 Respiratory Rate 18 18 Blood Pressure 139/79 Pulse Oximetry 97 95 Intake & Output 09/14/18 09/15/18 09/15/18 18:59 06:59 18:59 Intake Total 480 / 480 365 / 365 75 / 75 Balance 480 / 480 365 / 365 75 / 75 Weight 41.6 kg Intake: IV 125 / 125 75 / 75 Cardizem Inj 125 MG In NS Inj 125 / 125 75 / 75 100 ML @ 5 MG/HR 5 mls/hr IV. CONT TITRATE PRN Rx#:[id number] Oral 480 / 480 240 / 240 Other: # Voids 3 3 Date of Last Bowel Movement 09/14/18 09/14/18 09/14/18 # Bowel Movements 1 1 Narrative: GENERAL: This is a well-nourished, well-developed patient, in no apparent distress. CARDIOVASCULAR: Normal rate and regular rhythm without murmurs, gallops, or rubs. RESPIRATORY: Air movement is fair. Diminished breath sounds at the bases bilaterally. No wheezing GASTROINTESTINAL: Abdomen soft, non-tender, non-distended. Normal active bowel sounds MUSCULOSKELETAL: Extremities without cyanosis, or edema. NEURO: Alert & Oriented x4 to person, place, time, situation. Moves all ext x4 PSYCH: Appropriate mood and affect. Results Procedures completed during hospitalization: None Labs on day of discharge: Labs from last 24 hours 09/14/18 13:31 Sodium 133 L Potassium 3.6 D Chloride 98 Carbon Dioxide 29.1 Anion Gap 6 BUN 19 H Creatinine 1.35 H Estimated GFR 37 L Random Glucose 275 H D Calcium 8.0 L Magnesium 1.9 - Impressions ITS Impressions Chest X-Ray 09/12/18 14:09 CONCLUSION: 1. Cardiomegaly with improved interstitial edema. 2. Improved bilateral lower lung zone airspace disease. Discharge Plan - Discharge Disposition Patient Disposition: Disch W/Home Health Service - Discharge Condition Condition: Good - Discharge Order Discharge Orders: Discharge Order (Routine); Ordered 09/15/18 Ordered By: Artemio Ham - Physicians Team Primary Care Provider: Claudia Richard Attending Provider: Artemio Ham Other Providers: [facility],Agency
[2018-09-15 14:39] VITALS: PULSE 86
--- NOTE | 2018-09-15 14:52 | P.DCO ---
- Diagnosis (1) Hypertension Status: Chronic (2) Atrial fibrillation Status: Acute (3) CHF exacerbation Status: Acute (4) COPD exacerbation Status: Acute (5) Hypoxia Status: Acute - Physical Therapy Order: Evaluate and treat, Improve ambulation, Strength and gait training - Home Health Nursing Order: Medical education, Oxygen administration education - Case Management Consult Yes - Certification I have seen patient Toshia Ortiz on 09/15/18. My clinical findings support the need for the requested home health care services because: Patient has SOB, Limited ability to care for self I certify that my clinical findings support that this patient is homebound because: Hx COPD - exertion dyspnea/weakness, Unsteady gait/balance, Poor cardiac reserve
== END 2018-09-15 15:56 | disposition home health service (06) ==
LOC: NEPE 13:41 → NEDA 13:41 → NEPFCDU 17:35 → HCIS 09-14 12:27
PROVIDERS: ADMIT Family Medicine; ATTEND Family Medicine

== ENCOUNTER 2018-10-02 08:54 | Inpatient (IN) ==
[2018-10-02] MEDS ORDERED: MethylPREDNISolone Sod Succinate Inj 125 MG/2 ML Vial IV.PUSH ONE (09:21)
--- NOTE | 2018-10-02 09:26 | ED ---
HPI General Chief complaint: Respiratory Symptoms Stated complaint: respiratory Time Seen by Provider: 10/02/18 09:15 Source: patient Mode of arrival: ambulatory Limitations: no limitations History of Present Illness HPI narrative: 83yo F with PMH of CAD s/p stent, CHF, afib on eliquis here with c/o chest tightness and sob today. It is midsternal and nonradiating. Moderate severity. Pt is on azithromycin. Denies any fever, n/v, abdominal pain, focal weakness or numbess. Uses 2N NC oxygen normally. Pt was just admitted for CHF exacerbation on 09/12/18. Related Data Home Medications Medication Instructions Recorded Confirmed apixaban [Eliquis] 2.5 mg PO BID 08/13/18 10/02/18 diltiazem HCl 180 mg PO TID 08/13/18 10/02/18 metoprolol tartrate 50 mg PO BID 08/13/18 10/02/18 sitagliptin [Januvia] 50 mg PO DAILY 08/13/18 10/02/18 albuterol sulfate [ProAir HFA] 2 puff INHALATION Q4-6H PRN 09/06/18 10/02/18 arformoterol [Brovana] 1 puff INHALATION BID 09/06/18 10/02/18 budesonide-formoterol [Symbicort] 2 puff INHALATION BID 09/06/18 10/02/18 ferrous gluconate 270 mg PO DAILY 09/06/18 10/02/18 insulin aspart U-100 [Novolog 1 sliding scale dose SUBCUT UD 09/06/18 10/02/18 PenFill U-100 Insulin] insulin degludec [Tresiba 20 unit SUBCUT DAILY 09/06/18 10/02/18 FlexTouch U-100] ranitidine HCl [Zantac] 150 mg PO DAILY 09/06/18 10/02/18 sucralfate 1 g PO Q6H 09/06/18 10/02/18 azithromycin 250 mg PO BID 10/02/18 10/02/18 ipratropium-albuterol 3 ml INHALATION Q12HR 10/02/18 10/02/18 levothyroxine 125 mcg PO DAILY 10/02/18 10/02/18 Previous Rx's Medication Instructions Recorded bumetanide 1 mg PO BID #60 tab 09/15/18 Allergies Allergy/AdvReac Type Severity Reaction Status Date / Time penicillin G Allergy Severe Anaphylaxis Verified 10/02/18 10:13 Iodinated Contrast- Oral and AdvReac Severe Hives Verified 10/02/18 10:13 IV Dye levofloxacin AdvReac Severe Confusion Verified 10/02/18 10:13 Quinolones AdvReac Severe Confusion Verified 10/02/18 10:13 verapamil AdvReac Severe Nausea/Vomi Verified 10/02/18 10:13 ting Review of Systems ROS: all other systems reviewed are negative [facility] Medical History Medical History Asthma (Acute) Afib (Acute) CAD (coronary artery disease) (Acute) CHF (congestive heart failure) (Acute) CKD (chronic kidney disease) (Acute) COPD (chronic obstructive pulmonary disease) (Acute) Cirrhosis (Acute) Diabetes (Acute) HTN (hypertension) (Acute) Hepatitis C (Acute) Myocardial infarction (Acute) Pacemaker (Acute) Surgical History Surgical History History of cholecystectomy (Acute) History of heart artery stent (Acute) Social History Social History Substance History: No History of Abuse Second Hand Smoke Exposure: No Smoking Status: Never smoker How Often Do You Have a Drink Containing Alcohol: Never Hx Recent Travel: No Recent Travel in [facility] within the Last 8 Weeks: No Recent Out of Country Travel within the Last 8 Weeks: No Exam Narrative Exam Narrative: GENERAL: 83yo F in mild distress. SKIN: Focused skin assessment warm/dry. HEAD: Atraumatic. Normocephalic. EYES: Pupils equal and round. No scleral icterus. No injection or drainage. ENT: No nasal bleeding or discharge. Mucous membranes pink and moist. NECK: Trachea midline. No JVD. CARDIOVASCULAR: Regular rate and rhythm. No murmur appreciated. RESPIRATORY: No accessory muscle use. Bibasilar crackles. GASTROINTESTINAL: Abdomen soft, non-tender, nondistended. Hepatic and splenic margins not palpable. MUSCULOSKELETAL: No obvious deformities. No clubbing. No cyanosis. +Bilateral lower ext edema. NEUROLOGICAL: Awake and alert. No obvious cranial nerve deficits. Motor grossly within normal limits. Normal speech. PSYCHIATRIC: Appropriate mood and affect; insight and judgment normal. Course Initial Documented Vital Signs Temperature 99.1 F 10/02/18 08:57 Pulse Rate 98 H 10/02/18 08:57 Respiratory Rate 20 10/02/18 08:57 Blood Pressure 165/98 H 10/02/18 08:57 Pulse Oximetry 98 10/02/18 08:57 Last Documented Vital Signs Temperature 97.8 F 10/02/18 14:32 Pulse Rate 109 H 10/02/18 14:32 Respiratory Rate 20 10/02/18 14:32 Blood Pressure 136/87 10/02/18 14:32 Pulse Oximetry 99 10/02/18 14:32 Medical Decision Making MDM Narrative Medical decision making narrative: 83yo F with chest pain and sob today. Labs reviewed, no leukocytosis. H/H low at 9.4/27.1 which is at baseline. Thrombocytopenic which is at baseline. CXR showed worsening bibasilar densities greater right lower lobe. Pt is already on bumetanide so given bumex 1mg IV. Admitted for CHF exacerbation. Medical Screen Exam Complete: Yes Emergency Medical Condition: Yes Lab Data Result diagrams: 10/02/18 09:45 10/02/18 09:41 Lab Results 10/02/18 10/02/18 10/02/18 Range/Units 09:41 09:41 09:41 WBC (4.0-11.0) th/mm3 RBC (4.00-5.30) mil/mm3 Hgb (11.6-15.3) gm/dL Hct (35.0-46.0) % MCV (80.0-100.0) fL MCH (27.0-34.0) pg MCHC (32.0-36.0) % RDW (11.6-17.2) % Plt Count (150-450) th/mm3 MPV (7.0-11.0) fL Neut % (Auto) (16.0-70.0) % Lymph % (Auto) (9.0-44.0) % Kent % (Auto) (0.0-8.0) % Eos % (Auto) (0.0-4.0) % Baso % (Auto) (0.0-2.0) % Neut # (Auto) (1.8-7.7) th/mm3 Lymph # (Auto) (1.0-4.8) th/mm3 Kent # (Auto) (0.0-0.9) th/mm3 Eos # (Auto) (0.0-0.4) th/mm3 Baso # (Auto) (0.0-0.2) th/mm3 WBC Differential Differential Comment PT 13.4 H (9.8-11.6) sec INR 1.3 Ratio APTT 30.0 (23.4-31.7) sec Sodium 138 (136-145) meq/L Potassium 3.8 (3.5-5.1) meq/L Chloride 101 (98-107) meq/L Carbon Dioxide 32.5 H (21.0-32.0) meq/L Anion Gap 5 (5-15) meq/L BUN 14 (7-18) mg/dL Creatinine 1.17 H (0.50-1.00) mg/dL Estimated GFR 44 L (>89) mL/min POC Glucose (68-110) mg/dl Random Glucose 159 H (74-106) mg/dL Calcium 8.4 L (8.5-10.1) mg/dL Total Bilirubin 0.9 (0.2-1.0) mg/dL AST 34 (15-37) U/L ALT 24 (10-53) U/L Alkaline Phosphatase 74 (45-117) U/L Troponin I Less than 0.02 L (0.02-0.05) ng/mL B-Natriuretic Peptide 694 H (0-100) pg/mL Total Protein 8.9 H (6.4-8.2) g/dL Albumin 3.0 L (3.4-5.0) g/dL 10/02/18 10/02/18 10/02/18 Range/Units 09:45 14:38 15:00 WBC 9.9 (4.0-11.0) th/mm3 RBC 3.09 L (4.00-5.30) mil/mm3 Hgb 9.4 L (11.6-15.3) gm/dL Hct 27.1 L (35.0-46.0) % MCV 87.8 (80.0-100.0) fL MCH 30.3 (27.0-34.0) pg MCHC 34.6 (32.0-36.0) % RDW 15.4 (11.6-17.2) % Plt Count 128 L (150-450) th/mm3 MPV 8.6 (7.0-11.0) fL Neut % (Auto) 67.8 (16.0-70.0) % Lymph % (Auto) 18.9 (9.0-44.0) % Kent % (Auto) 12.2 H (0.0-8.0) % Eos % (Auto) 0.8 (0.0-4.0) % Baso % (Auto) 0.3 (0.0-2.0) % Neut # (Auto) 6.7 (1.8-7.7) th/mm3 Lymph # (Auto) 1.9 (1.0-4.8) th/mm3 Kent # (Auto) 1.2 H (0.0-0.9) th/mm3 Eos # (Auto) 0.1 (0.0-0.4) th/mm3 Baso # (Auto) 0.0 (0.0-0.2) th/mm3 WBC Differential . Differential Comment Auto diff final PT (9.8-11.6) sec INR Ratio APTT (23.4-31.7) sec Sodium (136-145) meq/L Potassium (3.5-5.1) meq/L Chloride (98-107) meq/L Carbon Dioxide (21.0-32.0) meq/L Anion Gap (5-15) meq/L BUN (7-18) mg/dL Creatinine (0.50-1.00) mg/dL Estimated GFR (>89) mL/min POC Glucose 234 H (68-110) mg/dl Random Glucose (74-106) mg/dL Calcium (8.5-10.1) mg/dL Total Bilirubin (0.2-1.0) mg/dL AST (15-37) U/L ALT (10-53) U/L Alkaline Phosphatase (45-117) U/L Troponin I Less than 0.02 L (0.02-0.05) ng/mL B-Natriuretic Peptide (0-100) pg/mL Total Protein (6.4-8.2) g/dL Albumin (3.4-5.0) g/dL Imaging Data Radiologist's impression: Chest X-Ray 10/02/18 09:21 CONCLUSION: 1. Worsening bibasilar densities greater right lower lobe. 2. Probable small pleural effusions. ECG Data EKG Prior to Arrival: No Attestation: I personally reviewed and interpreted this ECG as follows: Interpretation: Afib at 101bpm. Normal axis. TWI I, II, III, aVF, V4-V6. Discharge Plan Discharge Disposition Patient Disposition: 30 Still Patient Discharge Details Diagnosis: CHF exacerbation Physicians Team ED Provider: Kim Nguyen Primary Care Provider: Claudia Richard Attending Provider: Chavez Silva Status ED Status: Left Department Discharge Information Discharge Date/Time: 10/02/18 15:30
--- NOTE | 2018-10-02 10:22 | XR ---
EXAM DATE: 10/02/2018 10:19 AM EST AGE/SEX: 83 years / Female INDICATIONS: Short of breath, nausea, chest pain CLINICAL DATA: This is the patient's initial encounter. Patient reports that signs and symptoms have been present for 2 days and indicates a pain score of Nonresponsive. MEDICAL/SURGICAL HISTORY: Congestive heart failure. Chronic obstructive pulmonary disease. A-f ib, pneumonia Pacemaker. COMPARISON: [facility] [place], CHEST 1V SINGLE AP, 09/12/2018. . FINDINGS: A single AP view of the chest demonstrates bibasilar densities greater right lower lobe. Mild cardiac enlargement. Small pleural effusions. Left-sided pacemaker unchanged. The cardiomediastinal contours are unremarkable. Osseous structures are intact. CONCLUSION: 1. Worsening bibasilar densities greater right lower lobe. 2. Probable small pleural effusions. Electronically signed by: Boaz Mckeon MD 10/02/2018 10:21 AM EST
[2018-10-02 10:33] LABS: Baso % (Auto) 0.3 % (0.0-2.0); Eos # (Auto) 0.1 th/mm3 (0.0-0.4); Eos % (Auto) 0.8 % (0.0-4.0); Hematocrit 27.1 % (35.0-46.0); Hemoglobin 9.4 gm/dL (11.6-15.3); Lymph # (Auto) 1.9 th/mm3 (1.0-4.8); Lymph % (Auto) 18.9 % (9.0-44.0); Mean Corpuscular HGB Conc 34.6 % (32.0-36.0); Mean Corpuscular Hemoglobin 30.3 pg (27.0-34.0); Mean Corpuscular Volume 87.8 fL (80.0-100.0); Mean Platelet Volume 8.6 fL (7.0-11.0); Mono # (Auto) 1.2 th/mm3 (0.0-0.9); Mono % (Auto) 12.2 % (0.0-8.0); Neut # (Auto) 6.7 th/mm3 (1.8-7.7); Neut % (Auto) 67.8 % (16.0-70.0); Platelet Count 128 th/mm3 (150-450); Red Blood Count 3.09 mil/mm3 (4.00-5.30); Red Cell Distribution Width 15.4 % (11.6-17.2); White Blood Count 9.9 th/mm3 (4.0-11.0)
[2018-10-02 10:43] LABS: INR 1.3 Ratio; Prothrombin Time 13.4 sec (9.8-11.6)
[2018-10-02 10:56] LABS: Anion Gap 5 meq/L (5-15); Aspartate Aminotransferase 34 U/L (15-37); Blood Urea Nitrogen 14 mg/dL (7-18); Calcium 8.4 mg/dL (8.5-10.1); Carbon Dioxide 32.5 meq/L (21.0-32.0); Chloride 101 meq/L (98-107); Glomerular Filtration Rate 44 mL/min (>89); Glucose,Random 159 mg/dL (74-106); Potassium 3.8 meq/L (3.5-5.1); Sodium 138 meq/L (136-145)
[2018-10-02 11:02] LABS: Alanine Aminotransferase 24 U/L (10-53); Alkaline Phosphatase 74 U/L (45-117); Total Protein 8.9 g/dL (6.4-8.2)
--- NOTE | 2018-10-02 12:30 | P.HPFP ---
History of Present Illness Primary Care Physician: Claudia Richard <Chavez Silva - 10/03/18 12:45> Claudia Moose BassettJose Manuel <Bennie Hernandez III - 10/02/18 12:30> Chief Complaint: dyspnea <Bennie Hernandez III - 10/02/18 12:30> History of Present Illness: Ms Ortiz is an 83 YO female followed by BELINDA Richard with PMHx CHF, DM, HTN, hypothyroidism, who was being treated for community acquired PNA with azithromycin in August, and appeared to clear the infection, but following the antibiotic started to get worse after her PT session on Tuesday. Pt was taken to see her PCP who started Azithromycin. She was brought to the ED by her daughter who reports her temperature Tuesday was 99.8 and Tuesday was 99.1. Both of these temperatures responded to Tylenol. Her weight has not changed. Her daughter weighs her daily at 110 lbs. Sxs today include SOB, fever, occasional productive cough with yellowish mucus, rhinorrhea, occasional sneezing, and whole body muscle aches. It is not known if she has sick contacts, although there are a lot of people coming into the home. Pt's son smokes but not int he home. Pt uses 2L via NC at home for the last 3 years. There is no N/V/D, no problems voiding or stooling. There is occasional constipation, but pt is taking oral iron for anemia. Pt is on Eliquis for afib, but has had recurrent BRBPR. Last incidence was last week when she appeared to bleed all week. There has been no BRBPR this week. There have been no palpitations but pt has been complaining it was difficult to walk as she felt out of breath. Dr Day is her inorganic chemistry teacher. PMHx CHF Afib asthma 2 cardiac stents 10/01/09 following [place] 09/10/09 pacemaker 02/22/15 DM type 2 HTN liver cirrhosis Hep C likely 2/2 blood transfusions before 1978 hypothyroidism osteoporosis SurgHx: gallbladder removal 1974 stents FamHx: Mother - passed when pt was 1 yo; unknown Father - liver disease (no EtOH, however) SocHx: never smoker no EtOH no other drugs Lives with daughter in [place] <Bennie Hernandez III - 10/02/18 17:05> - Diagnosis (1) Dyspnea (2) CHF (congestive heart failure) (3) Tachycardia (4) Chest pain (5) Hypertension (6) Diabetes <Mary COLORADOBennie 10/02/18 17:29> Inpatient Certification: I certify that the inpatient services were ordered in accordance with Medicare regulations governing the order. This includes certification that hospital inpatient services are reasonable and necessary and in the case of services not specified as inpatient-only under 42 CFR 419.22(n), that they are appropriately provided as inpatient services in accordance to with the 2-midnight benchmark under 43 CFR 412.3(e) <Chavez Silva - 10/03/18 12:45> I certify that the inpatient services were ordered in accordance with Medicare regulations governing the order. This includes certification that hospital inpatient services are reasonable and necessary and in the case of services not specified as inpatient-only under 42 CFR 419.22(n), that they are appropriately provided as inpatient services in accordance to with the 2-midnight benchmark under 43 CFR 412.3(e) <Mary COLORADOBennie 10/02/18 12:30> Review of Systems Constitutional: Reports fever(s) <[facility] 10/02/18 17:05> Eyes: Denies change in vision <[facility] 10/02/18 17:05> Ears, Nose, Mouth, and Throat: Reports nasal congestion, Reports nasal discharge , Denies hoarseness, Denies mouth lesions <[facility] 10/02/18 17:05 > Cardiovascular: Reports shortness of breath, Denies chest pain, Denies irregular heart rhythm <[facility] 10/02/18 17:05> Respiratory: Reports cough, Reports shortness of breath <[facility] 10/02/18 17:05> Gastrointestinal: Reports bright, red blood in stools (last week), Denies abdominal pain, Denies coffee ground vomit, Denies loose stools, Denies nausea, Denies vomiting <[facility] 10/02/18 17:05> Genitourinary: Denies difficulty starting urination, Denies difficulty urinating , Denies painful urination, Denies urinary incontinence <[facility] - 10/02/18 17:05> Skin/Breast: Denies lesions, Denies rash <Mary COLORADOBennie Hernandez 10/02/18 17:05> Neurologic: Denies dizziness, Denies headache(s) <Claudettedelmy STANISLAVBennie Hernandez - 17:05> PMFSH - History History Provided By: Patient <Bennie Hernandez III 10/02/18 12:30> - Medical History Medical History: Medical History (Last Updated 10/02/18 @ 12:21 by Bennie Hernandez III, MD, R2) Asthma Afib CAD (coronary artery disease) CHF (congestive heart failure) CKD (chronic kidney disease) COPD (chronic obstructive pulmonary disease) Cirrhosis Diabetes HTN (hypertension) Hepatitis C Myocardial infarction Pacemaker <Chavez Silva - 10/03/18 12:45> Medical History (Last Updated 10/02/18 @ 12:21 by Bennie Hernandez III, MD, R2) Asthma Afib CAD (coronary artery disease) CHF (congestive heart failure) CKD (chronic kidney disease) COPD (chronic obstructive pulmonary disease) Cirrhosis Diabetes HTN (hypertension) Hepatitis C Myocardial infarction Pacemaker <Mary COLORADOBennie Hernandez - 10/02/18 12:30> - Surgical History Surgical History: Surgical History (Last Updated 10/02/18 @ 12:22 by Bennie Hernandez III, MD, R2) History of cholecystectomy History of heart artery stent <Chavez Silva - 10/03/18 12:45> Surgical History (Last Updated 10/02/18 @ 12:22 by Bennie Hernandez III, MD, R2) History of cholecystectomy History of heart artery stent <Claudettedelmy STANISLAVBennie Hernandez - 10/02/18 12:30> - Family History Family History: Family History (Last Reviewed 09/12/18 @ 14:58 by Bia Harden MD) Other HTN (hypertension) <Chavez Silva - 10/03/18 12:45> Family History (Last Reviewed 09/12/18 @ 14:58 by Bia Harden MD) Other HTN (hypertension) <Mary COLORADOBennie Hernandez 10/02/18 12:30> - Tobacco History Second Hand Smoke Exposure: No <Mary COLORADOBennie Hernandez - 10/02/18 12:30> Smoking Status: Never smoker <Bennie Hernandez III - 10/02/18 12:30> - Alcohol History How Often Do You Have a Drink Containing Alcohol: Never <Bennie Hernandez III - 10/02/18 12:30> - Substance Use History Substance History: No History of Abuse <Bennie Hernandez III 10/02/18 12:30> - Travel History History of Recent Travel: No <Bennie Hernandez III 10/02/18 12:30> Recent Travel in the [place] Within the Last 8 Weeks: No <Bennie Hernandez III 04/14 12:30> Recent Travel Out of the Country Within the Last 8 Weeks: No <Bennie Hernandez III 10/02/18 12:30> - Immunization History Tetanus Immunization: >5 Years <Bennie Hernandez III 10/02/18 12:30> Medications and Allergies Allergies Allergy/AdvReac Type Severity Reaction Status Date / Time penicillin G Allergy Severe Anaphylaxis Verified 10/02/18 10:13 Iodinated Contrast- Oral and AdvReac Severe Hives Verified 10/02/18 10:13 IV Dye levofloxacin AdvReac Severe Confusion Verified 10/02/18 10:13 Quinolones AdvReac Severe Confusion Verified 10/02/18 10:13 verapamil AdvReac Severe Nausea/Vomi Verified 10/02/18 10:13 ting <Chavze Silva - 10/03/18 12:45> Home Medications Medication Instructions Recorded Confirmed Type apixaban [Eliquis] 2.5 mg PO BID 08/13/18 10/02/18 History diltiazem HCl 180 mg PO TID 08/13/18 10/02/18 History metoprolol tartrate 50 mg PO BID 08/13/18 10/02/18 History sitagliptin [Januvia] 50 mg PO DAILY 08/13/18 10/02/18 History albuterol sulfate [ProAir HFA] 2 puff INHALATION Q4-6H PRN 09/06/18 10/02/18 History arformoterol [Brovana] 1 puff INHALATION BID 09/06/18 10/02/18 History budesonide-formoterol [Symbicort] 2 puff INHALATION BID 09/06/18 10/02/18 History ferrous gluconate 270 mg PO DAILY 09/06/18 10/02/18 History insulin aspart U-100 [Novolog 1 sliding scale dose SUBCUT UD 09/06/18 10/02/18 History PenFill U-100 Insulin] insulin degludec [Tresiba 20 unit SUBCUT DAILY 09/06/18 10/02/18 History FlexTouch U-100] ranitidine HCl [Zantac] 150 mg PO DAILY 09/06/18 10/02/18 History sucralfate 1 g PO Q6H 09/06/18 10/02/18 History azithromycin 250 mg PO BID 10/02/18 10/02/18 History ipratropium-albuterol 3 ml INHALATION Q12HR 10/02/18 10/02/18 History levothyroxine 125 mcg PO DAILY 10/02/18 10/02/18 History <Chavez Silva - 10/03/18 12:45> Active Medications: Active Medications Acetaminophen (Tylenol) 650 mg PO Q4H PRN PRN Reason: Temp > 100.4 Albuterol (Duoneb Neb (Prn)) 1 ampul NEB Q15M PRN PRN Reason: DYSPNEA Albuterol (Duoneb Neb (Marlon)) 1 ampul NEB Q6HR WHILE AWAKE NEB [facility] Last Admin: 10/03/18 08:54 Dose: 1 ampul Apixaban (Eliquis) 2.5 mg PO BID [facility] Last Admin: 10/03/18 09:36 Dose: 2.5 mg Azithromycin (Zithromax) 250 mg PO BID [facility] Last Admin: 10/03/18 09:35 Dose: 250 mg Budesonide/Formoterol Fumarate (Symbicort 160/4.5 Mcg Inh) 2 puff INH BID [facility] Last Admin: 10/03/18 10:23 Dose: 2 puff Dextrose (D50w Vial) 50 ml IV.PUSH UNSCH PRN PRN Reason: PER HYPOGLYCEMIA PROTOCOL Famotidine (Pepcid) 10 mg PO BID [facility] Last Admin: 10/03/18 09:37 Dose: 10 mg Ferrous Sulfate (Ferosul) 325 mg PO DAILY [facility] Last Admin: 10/03/18 09:36 Dose: 325 mg Furosemide (Lasix Inj) 40 mg IV.PUSH BID@0900,1800 [facility] Last Admin: 10/02/18 17:35 Dose: 40 mg Glucagon (Glucagon Inj) 1 mg OTHER PRN PRN PRN Reason: for Hypoglycemia Protocol Insulin Aspart (Novolog Insulin Correctional Sugar Inj) 0 unit SQ ACHS [facility]; Protocol Last Admin: 10/03/18 09:34 Dose: 9 unit Levothyroxine Sodium (Synthroid) 125 mcg PO DAILY@0600 [facility] Last Admin: 10/03/18 06:28 Dose: 125 mcg Metoprolol Tartrate (Lopressor) 50 mg PO BID [facility] Last Admin: 10/03/18 09:36 Dose: 50 mg Nitroglycerin (Nitrostat Sl) 0.4 mg SL Q5M PRN PRN Reason: CHEST PAIN Last Admin: 10/02/18 11:25 Dose: 0.4 mg Non-Formulary Medication (Diltiazem Hcl [Diltiazem Hcl]) 180 mg PO TID [facility] Pt Own Med: Tresiba Flextouch (Insulin Degludec) 0 each SQ DAILY [facility] Senna/Docusate Sodium (Arianne-Colace) 1 tab PO BID [facility] Last Admin: 10/03/18 09:37 Dose: 1 tab Sucralfate (Carafate) 1 gm PO Q6H [facility] Last Admin: 10/03/18 09:37 Dose: 1 gm <Chavez Silva - 10/03/18 12:45> Active Medications Albuterol (Duoneb Neb (Prn)) 1 ampul NEB Q15M PRN PRN Reason: DYSPNEA Nitroglycerin (Nitrostat Sl) 0.4 mg SL Q5M PRN PRN Reason: CHEST PAIN Last Admin: 10/02/18 11:25 Dose: 0.4 mg <Bennie Hernandez III - 10/02/18 12:30> Exam Vital signs: Vital Signs 10/02/18 14:22 10/02/18 14:32 10/02/18 19:10 Temperature 97.8 F Pulse Rate 87 109 H 96 H Respiratory Rate 17 20 28 H Blood Pressure 136/87 Pulse Oximetry 99 97 10/02/18 20:00 10/02/18 23:35 10/03/18 04:00 Temperature 98.3 F 98.0 F Pulse Rate 97 H 115 H 101 H Respiratory Rate 18 18 18 Blood Pressure 139/81 120/78 128/74 Pulse Oximetry 98 94 L 97 10/03/18 07:39 10/03/18 08:57 Temperature 97.8 F Pulse Rate 83 100 H Respiratory Rate 16 16 Blood Pressure 133/92 H Pulse Oximetry 96 99 Intake & Output 10/02/18 10/03/18 10/03/18 18:59 06:59 18:59 Output Total 200 / 200 300 / 300 Balance -200 / -200 -300 / -300 Weight 52 kg Output: Urine 200 / 200 300 / 300 Other: Weight On Admission 52 kg <Chavez Silva - 10/03/18 12:45> Vital Signs 10/02/18 08:57 10/02/18 09:21 10/02/18 10:58 Temperature 99.1 F 97.7 F 97.9 F Pulse Rate 98 H 96 H 95 H Respiratory Rate 20 17 20 Blood Pressure 165/98 H 164/86 H 176/105 H Pulse Oximetry 98 98 97 10/02/18 11:32 Temperature Pulse Rate Respiratory Rate 18 Blood Pressure Pulse Oximetry Intake & Output 10/01/18 10/02/18 10/02/18 18:59 06:59 18:59 Weight 110 kg <Bennie Hernandez III - 10/02/18 12:30> Narrative: GENERAL: Elderly female lying in bed in [facility]. SKIN: Warm and dry. No rash or lesions. HEAD: Normocephalic. Atraumatic. MMM. Mouth with no ulcers, oropharynx clear without exudate. EYES: No scleral icterus. No injection or drainage. NECK: Supple, trachea midline. No JVD or lymphadenopathy. CARDIOVASCULAR: Tachycardia, irregular rhythm without murmurs, gallops, or rubs. RESPIRATORY: Breath sounds equal bilaterally. No accessory muscle use. Occasional cough. No wheeze, crackle or rhonchi noted. GASTROINTESTINAL: Abdomen soft, non-tender, nondistended. MUSCULOSKELETAL: No cyanosis, or edema. BACK: No CVA tenderness. Notable thoracic kyphosis. <Bennie Hernandez III - 10/02/18 17:05> Results - Labs Result diagrams: 10/03/18 06:50 10/03/18 06:50 <Chavez Silva - 10/03/18 12:45> Abnormal lab results 10/02/18 10/02/18 10/02/18 Range/Units 14:38 15:00 17:31 RBC (4.00-5.30) mil/mm3 Hgb (11.6-15.3) gm/dL Hct (35.0-46.0) % Plt Count (150-450) th/mm3 Neut % (Auto) (16.0-70.0) % Lymph # (Auto) (1.0-4.8) th/mm3 Sodium (136-145) meq/L Chloride (98-107) meq/L BUN (7-18) mg/dL Creatinine (0.50-1.00) mg/dL Estimated GFR (>89) mL/min POC Glucose 234 H 351 H (68-110) mg/dl Random Glucose (74-106) mg/dL Troponin I Less than 0.02 L (0.02-0.05) ng/mL B-Natriuretic Peptide (0-100) pg/mL Urine Clarity (Clear) Urine Protein (Neg-Trace) mg/dL Urine Glucose (UA) (Negative) mg/dL Urine Occult Blood (Negative) Urine Bacteria (None) /hpf Urine Mucus (Occasional) /lpf 10/02/18 10/02/18 10/02/18 Range/Units 18:51 21:06 21:09 RBC (4.00-5.30) mil/mm3 Hgb (11.6-15.3) gm/dL Hct (35.0-46.0) % Plt Count (150-450) th/mm3 Neut % (Auto) (16.0-70.0) % Lymph # (Auto) (1.0-4.8) th/mm3 Sodium (136-145) meq/L Chloride (98-107) meq/L BUN (7-18) mg/dL Creatinine (0.50-1.00) mg/dL Estimated GFR (>89) mL/min POC Glucose 398 H (68-110) mg/dl Random Glucose (74-106) mg/dL Troponin I Less than 0.02 L (0.02-0.05) ng/mL B-Natriuretic Peptide 1136 H (0-100) pg/mL Urine Clarity (Clear) Urine Protein (Neg-Trace) mg/dL Urine Glucose (UA) (Negative) mg/dL Urine Occult Blood (Negative) Urine Bacteria (None) /hpf Urine Mucus (Occasional) /lpf 10/02/18 10/03/18 10/03/18 Range/Units Unknown 04:12 06:50 RBC 3.05 L (4.00-5.30) mil/mm3 Hgb 9.2 L (11.6-15.3) gm/dL Hct 26.7 L (35.0-46.0) % Plt Count 110 L (150-450) th/mm3 Neut % (Auto) 82.9 H (16.0-70.0) % Lymph # (Auto) 0.7 L (1.0-4.8) th/mm3 Sodium (136-145) meq/L Chloride (98-107) meq/L BUN (7-18) mg/dL Creatinine (0.50-1.00) mg/dL Estimated GFR (>89) mL/min POC Glucose 403 H (68-110) mg/dl Random Glucose (74-106) mg/dL Troponin I (0.02-0.05) ng/mL B-Natriuretic Peptide (0-100) pg/mL Urine Clarity Hazy H (Clear) Urine Protein 30 H (Neg-Trace) mg/dL Urine Glucose (UA) 150 H (Negative) mg/dL Urine Occult Blood Small H (Negative) Urine Bacteria Occasional H (None) /hpf Urine Mucus Few H (Occasional) /lpf 10/03/18 10/03/18 Range/Units 06:50 09:22 RBC (4.00-5.30) mil/mm3 Hgb (11.6-15.3) gm/dL Hct (35.0-46.0) % Plt Count (150-450) th/mm3 Neut % (Auto) (16.0-70.0) % Lymph # (Auto) (1.0-4.8) th/mm3 Sodium 134 L (136-145) meq/L Chloride 97 L (98-107) meq/L BUN 37 H (7-18) mg/dL Creatinine 1.62 H (0.50-1.00) mg/dL Estimated GFR 30 L (>89) mL/min POC Glucose 364 H (68-110) mg/dl Random Glucose 382 H D (74-106) mg/dL Troponin I (0.02-0.05) ng/mL B-Natriuretic Peptide (0-100) pg/mL Urine Clarity (Clear) Urine Protein (Neg-Trace) mg/dL Urine Glucose (UA) (Negative) mg/dL Urine Occult Blood (Negative) Urine Bacteria (None) /hpf Urine Mucus (Occasional) /lpf Short CBC 10/03/18 Range/Units 06:50 WBC 6.2 (4.0-11.0) th/mm3 Hgb 9.2 L (11.6-15.3) gm/dL Hct 26.7 L (35.0-46.0) % Plt Count 110 L (150-450) th/mm3 BMP 10/03/18 06:50 Sodium 134 L Potassium 4.2 Chloride 97 L Carbon Dioxide 28.8 BUN 37 H Creatinine 1.62 H Calcium 8.5 Cardiac Enzymes 10/02/18 10/02/18 Range/Units 15:00 21:06 Troponin I Less than 0.02 L Less than 0.02 L (0.02-0.05) ng/mL Urine 10/02/18 Range/Units Unknown Urine Color Yellow (Yellw/Straw) Urine Clarity Hazy H (Clear) Urine pH 5.0 (5.0-8.5) Ur Specific [place] 1.009 (1.002-1.035) Urine Protein 30 H (Neg-Trace) mg/dL Urine Glucose (UA) 150 H (Negative) mg/dL <Chavez Silva - 10/03/18 12:45> Abnormal lab results 10/02/18 10/02/18 10/02/18 Range/Units 09:41 09:41 09:41 RBC (4.00-5.30) mil/mm3 Hgb (11.6-15.3) gm/dL Hct (35.0-46.0) % Plt Count (150-450) th/mm3 [place] % (Auto) (0.0-8.0) % [place] # (Auto) (0.0-0.9) th/mm3 PT 13.4 H (9.8-11.6) sec Carbon Dioxide 32.5 H (21.0-32.0) meq/L Creatinine 1.17 H (0.50-1.00) mg/dL Estimated GFR 44 L (>89) mL/min Random Glucose 159 H (74-106) mg/dL Calcium 8.4 L (8.5-10.1) mg/dL Troponin I Less than 0.02 L (0.02-0.05) ng/mL B-Natriuretic Peptide 694 H (0-100) pg/mL Total Protein 8.9 H (6.4-8.2) g/dL Albumin 3.0 L (3.4-5.0) g/dL 10/02/18 Range/Units 09:45 RBC 3.09 L (4.00-5.30) mil/mm3 Hgb 9.4 L (11.6-15.3) gm/dL Hct 27.1 L (35.0-46.0) % Plt Count 128 L (150-450) th/mm3 [place] % (Auto) 12.2 H (0.0-8.0) % [place] # (Auto) 1.2 H (0.0-0.9) th/mm3 PT (9.8-11.6) sec Carbon Dioxide (21.0-32.0) meq/L Creatinine (0.50-1.00) mg/dL Estimated GFR (>89) mL/min Random Glucose (74-106) mg/dL Calcium (8.5-10.1) mg/dL Troponin I (0.02-0.05) ng/mL B-Natriuretic Peptide (0-100) pg/mL Total Protein (6.4-8.2) g/dL Albumin (3.4-5.0) g/dL Short CBC 10/02/18 Range/Units 09:45 WBC 9.9 (4.0-11.0) th/mm3 Hgb 9.4 L (11.6-15.3) gm/dL Hct 27.1 L (35.0-46.0) % Plt Count 128 L (150-450) th/mm3 BMP 10/02/18 09:41 Sodium 138 Potassium 3.8 Chloride 101 Carbon Dioxide 32.5 H BUN 14 Creatinine 1.17 H Calcium 8.4 L Cardiac Enzymes 10/02/18 Range/Units 09:41 Troponin I Less than 0.02 L (0.02-0.05) ng/mL Liver Function 10/02/18 Range/Units 09:41 Total Bilirubin 0.9 (0.2-1.0) mg/dL AST 34 (15-37) U/L ALT 24 (10-53) U/L Alkaline Phosphatase 74 (45-117) U/L Albumin 3.0 L (3.4-5.0) g/dL <Bennie Hernandez III 10/02/18 12:30> - Imaging Impressions Chest X-Ray 10/03/18 06:00 CONCLUSION: Stable examination not significantly changed. <Chavez Silva - 10/03/18 12:45> Impressions Chest X-Ray 10/02/18 09:21 CONCLUSION: 1. Worsening bibasilar densities greater right lower lobe. 2. Probable small pleural effusions. <Bennie Hernandez III 10/02/18 12:30> Caprini VTE Risk Assessment Caprini VTE Risk Assessment: Moderate/High Risk (score >= 2) <Bennie Hernandez III 10/02/18 17:05> Caprini Risk Assessment Model: Point Value = 1 Point Value = 2 Point Value = 3 Point Value = 5 Age 41-60 Minor surgery BMI > 25 kg/m2 Swollen legs Varicose veins or History of unexplained or recurrent spontaneous Oral contraceptives or hormone replacement Sepsis (< 1 month) Serious lung disease, including pneumonia (< 1 month) Abnormal pulmonary function Acute myocardial infarction Congestive heart failure (< 1 month) History of inflammatory bowel disease Medical patient at bed rest Age 61-74 Arthroscopic surgery Major open surgery (> 45 min) Laparoscopic surgery (> 45 min) Malignancy Confined to bed (> 72 hours) Immobilizing plaster cast Central venous access Age >= 75 History of VTE Family history of VTE Factor V Leiden Prothrombin [id number] Lupus anticoagulant Anticardiolipin antibodies Elevated serum homocysteine Heparin-induced thrombocytopenia Other congenital or acquired thrombophilia Stroke (< 1 month) Elective arthroplasty Hip, pelvis, or leg fracture Acute spinal cord injury (< 1 month) <Chavez Silva - 10/03/18 12:45> Prophylaxis Regimen: Total Risk Factor Score Risk Level Prophylaxis Regimen 0-1 Low Early ambulation 2 Moderate Order ONE of the following: *Sequential Compression Device (SCD) *Heparin 5000 units SQ BID 3-4 Higher Order ONE of the following medications: *Heparin 5000 units SQ TID *Enoxaparin/Lovenox 40 mg SQ daily (WT < 150 kg, CrCl > 30 mL/min) *Enoxaparin/Lovenox 30 mg SQ daily (WT < 150 kg, CrCl > 10-29 mL/min) *Enoxaparin/Lovenox 30 mg SQ BID (WT < 150 kg, CrCl > 30 mL/min) AND/OR *Sequential Compression Device (SCD) 5 or more Highest Order ONE of the following medications: *Heparin 5000 units SQ TID (Preferred with Epidurals) *Enoxaparin/Lovenox 40 mg SQ daily (WT < 150 kg, CrCl > 30 mL/min) *Enoxaparin/Lovenox 30 mg SQ daily (WT < 150 kg, CrCl > 10-29 mL/min) *Enoxaparin/Lovenox 30 mg SQ BID (WT < 150 kg, CrCl > 30 mL/min) AND *Sequential Compression Device (SCD) <Chavez Silva - 10/03/18 12:45> Assessment and Plan - Assessment (1) Dyspnea Code(s): R06.00 - Dyspnea, unspecified Status: Acute (2) CHF (congestive heart failure) Code(s): I50.9 - Heart failure, unspecified Status: Acute (3) Tachycardia Code(s): R00.0 - Tachycardia, unspecified Status: Acute (4) Chest pain Code(s): R07.9 - Chest pain, unspecified Status: Resolved (5) Hypertension Code(s): I10 - Essential (primary) hypertension Status: Chronic (6) Diabetes Code(s): E11.9 - Type 2 diabetes mellitus without complications Status: Chronic <Bennie Hernandez III - 10/02/18 17:29> - Assessment and Plan 83 YO female with PMHx CHF, DM type 2, asthma, Atrial fibrillation, [place] s/p 2 stents, hypothyroidism, with no appreciable improvement since treatment in mid- August who returns to the ED with her daughter with dyspnea, chest pain, and subjective fever to 99.8 degrees and found to have BNP 694 and CXR with worsening bibasilar densities greater in RLL and probable small bilateral pleural effusions and no appreciable WBC, however, pt started Azithromycin on . Pt Cr 1.17, but BL appears to be higher in the 1.2-1.3 range over the past year. Pt likely has CHF exacerbation with or without worsening PNA. Impression: CXR w/small pleural effusions and bibasilar densities worsening WBC 9.9 (likely obscured by antibiotics) BNP 694 1. CHF exacerbation -Daily weights -Strict I/Os with fluid restriction to 1L daily -Lasix 40 mg IV BID -Trend daily BNP -Sodium restriction to 2g daily -Tele 2. Asthma -Albuterol nebs q6h while awake -Continue home Symbicort 2 puff INH BID -Hold home Brovana INH BID 3. Dyspnea -Supplemental O2 and titrate -Continuous pulse Ox 4. Pneumonia -Continue Azithromycin 250 mg BID -CXR PA&Lat in AM -Due to pt WBC 9.9, benign lung exam, and significant antibiotic allergies, will monitor for now 5. Afib - with rate to 106 -Continue home Metoprolol tartrate 50 mg BID -Continue home Diltiazem 180 mg TID -Tele 6. Chest pain - likely 2/2 CHF and pleural effusions, resolved with Nitrostat SL x1 -Troponins x2 <0.02 -Nitrostat SL 0.4 mg SL q5m PRN 7. HTN -Metoprolol as above 8. Diabetes -Continue home Tresiba 20 units daily -Accuchecks -Low SSI 9. Hypothyroidism -Continue home levothyroxine 125 mcg daily 10. Anemia -FeSO4 325 mg daily -CBC to follow 11. FEN/GI/PPx Fluids: fluid restriction to 1L daily; PO fluids Electrolytes: will follow with BMP Nutrition: Cardiac diet with sodium restriction to 2g daily GI: Continue home Pepcid 10 mg daily PPx: Continue pt's home Eliquis 2.5 mg BID Tylenol 650 mg Dispo Pt SDW Mayela Silva and Rosy <Bennie Hernandez III - 10/02/18 17:34> - Attending Attestation See the residents documentation for details. I saw and evaluated the patient regarding the long portions of this evaluation and agree with the residents findings and plans as written. Parts of this note were created using [employer] voice recognition software program. While efforts were made to correct any mistakes made by this software, some mistakes, errors, and omissions may remain in the final note that were not caught when the note was originally created. Plan of care was discussed and agreed upon with the patient as specifically documented in the above note. An opportunity to ask questions with explanation was provided. Patient voiced understanding on all information reviewed and discussed. <Chavez Silva - 10/03/18 12:45> <Bennie Hernandez III - Last Filed: 10/02/18 17:29> (4) Chest pain Qualifiers: Chest pain type: precordial pain Qualified Code(s): R07.2 - Precordial pain (6) Diabetes Qualifiers: Diabetes mellitus type: type 2 Diabetes mellitus fdc insulin use: with termite treater use Diabetes mellitus complication status: with kidney complications Diabetes mellitus complication detail: with chronic kidney disease Chronic kidney disease stage: stage 3 (moderate) Qualified Code(s): E11.22 - Type 2 diabetes mellitus with diabetic chronic kidney disease; N18.3 - Chronic kidney disease, stage 3 (moderate); Z79.4 - intermediate (current) use of insulin <Bennie Hernandez III - Last Filed: 10/02/18 17:29> (4) Chest pain Qualifiers: Chest pain type: precordial pain Qualified Code(s): R07.2 - Precordial pain (6) Diabetes Qualifiers: Diabetes mellitus type: type 2 Diabetes mellitus termite treater insulin use: with fdc use Diabetes mellitus complication status: with kidney complications Diabetes mellitus complication detail: with chronic kidney disease Chronic kidney disease stage: stage 3 (moderate) Qualified Code(s): E11.22 - Type 2 diabetes mellitus with diabetic chronic kidney disease; N18.3 - Chronic kidney disease, stage 3 (moderate); Z79.4 - intermediate (current) use of insulin
[2018-10-02] MEDS ORDERED: Acetaminophen 325 MG Tablet PO PRN (13:40)
[2018-10-02] MEDS ORDERED: Dextrose 50% in Water 50 ML Vial IV.PUSH PRN (13:40)
[2018-10-02] MEDS: Sucralfate 1 GM Tablet PO SCH ×2 (14:28→21:10)
[2018-10-02] MEDS: Insulin NovoLOG Aspart Correctional Sugar Inj SQ SCH ×2 (19:32→21:11)
--- NOTE | 2018-10-02 20:56 | ECG ---
Date Performed: 10/02/2018 Time Performed: 09:10:06 PTAGE: 83 years EKG: ATRIAL FIBRILLATION WITH RAPID VENTRICULAR RESPONSE NONSPECIFIC ST & T-WAVE ABNORMALITY ABN ORMAL ECG PREVIOUS TRACING : 09/13/2018 03.26 Since the previous tracing, no significant change noted DOCTOR: Solis Stone Interpretating Date/Time 10/02/2018 20:54:44
[2018-10-02] MEDS ORDERED: ARFORMOTEROL INH SCH (21:00)
[2018-10-02] MEDS: Famotidine 20 MG Tablet PO SCH (21:10)
[2018-10-02] MEDS: Azithromycin 250 MG Tablet PO SCH (21:11)
[2018-10-02] MEDS: Senna/Docusate Sodium 8.6/50 MG Tablet PO SCH (21:11)
[2018-10-02] MEDS: Metoprolol Tartrate 50 MG Tablet PO SCH (21:11)
[2018-10-02] MEDS: Budesonide-Formoterol 160/4.5 MCG 6 GM Inhaler INH SCH ×2 (21:11→21:21)
[2018-10-02 21:49] LABS: Bacteria,Urine Occasional /hpf; Bilirubin,Urine Negative (Negative); Clarity,Urine Hazy (Clear); Color,Urine Yellow (Yellw/Straw); Glucose,Urine (UA) 150 mg/dL (Negative); Hyaline Casts,Urine 125 /lpf (0-3); Leukocyte Esterase,Urine Negative (Negative); Mucus,Urine Few /lpf (Occasional); Nitrite,Urine Negative (Negative); Specific Gravity,Urine 1.009 (1.002-1.035); Squamous Epithelial Cell,Urine 8 /hpf (0-5)
[2018-10-03] MEDS: Sucralfate 1 GM Tablet PO SCH ×4 (04:14→22:02)
[2018-10-03] MEDS: Levothyroxine 125 MCG Tablet PO SCH (06:28)
[2018-10-03 07:26] LABS: Baso % (Auto) 0.1 % (0.0-2.0); Hematocrit 26.7 % (35.0-46.0); Hemoglobin 9.2 gm/dL (11.6-15.3); Lymph # (Auto) 0.7 th/mm3 (1.0-4.8); Lymph % (Auto) 11.1 % (9.0-44.0); Mean Corpuscular HGB Conc 34.3 % (32.0-36.0); Mean Corpuscular Hemoglobin 30.1 pg (27.0-34.0); Mean Corpuscular Volume 87.7 fL (80.0-100.0); Mono # (Auto) 0.4 th/mm3 (0.0-0.9); Mono % (Auto) 5.9 % (0.0-8.0); Neut # (Auto) 5.1 th/mm3 (1.8-7.7); Neut % (Auto) 82.9 % (16.0-70.0); Platelet Count 110 th/mm3 (150-450); Red Blood Count 3.05 mil/mm3 (4.00-5.30); Red Cell Distribution Width 15.2 % (11.6-17.2); White Blood Count 6.2 th/mm3 (4.0-11.0)
[2018-10-03 08:02] LABS: Calcium 8.5 mg/dL (8.5-10.1); Carbon Dioxide 28.8 meq/L (21.0-32.0); Potassium 4.2 meq/L (3.5-5.1)
--- NOTE | 2018-10-03 08:36 | XR ---
EXAM DATE: 10/03/2018 8:32 AM EST AGE/SEX: 83 years / Female INDICATIONS: . Dyspnea. CLINICAL DATA: This is the patient's subsequent encounter. Patient reports that signs and symptoms h ave been present for 2 days and indicates a pain score of 0/10. MEDICAL/SURGICAL HISTORY: . Congestive heart failure. Chronic obstructive pulmonary disease. A- fib. Pacemaker. COMPARISON: [facility], CHEST 1V SINGLE AP, 10/02/2018. . FINDINGS: Left subclavian pacer wires are present with tips in the right atrium and right ventricle. Small righ t pleural effusion, tiny left pleural effusion are seen not changed. Right basilar consolidation and/ or compressive collapse is also seen not changed. The rest of the examination has not changed. CONCLUSION: Stable examination not significantly changed. Electronically signed by: Sandra Todd MD 10/03/2018 8:34 AM EST
[2018-10-03] MEDS ORDERED: TRESIBA SQ SCH (09:00)
[2018-10-03] MEDS: Insulin NovoLOG Aspart Correctional Sugar Inj SQ SCH ×4 (09:34→22:02)
[2018-10-03] MEDS: Azithromycin 250 MG Tablet PO SCH ×2 (09:35→22:02)
[2018-10-03] MEDS: Ferrous Sulfate 325 MG Tablet PO SCH (09:36)
[2018-10-03] MEDS: Metoprolol Tartrate 50 MG Tablet PO SCH (09:36)
[2018-10-03] MEDS: Famotidine 20 MG Tablet PO SCH ×2 (09:37→22:02)
[2018-10-03] MEDS: Senna/Docusate Sodium 8.6/50 MG Tablet PO SCH ×2 (09:37→22:02)
[2018-10-03] MEDS: Budesonide-Formoterol 160/4.5 MCG 6 GM Inhaler INH SCH ×2 (10:23→22:04)
[2018-10-03] MEDS ORDERED: Insulin Detemir Inj 1,000 UNIT/10 ML Vial SQ ONE (14:15)
[2018-10-03] MEDS ORDERED: Sodium Chloride 0.9% 2 ML Flush PRN IV.FLUSH (15:04)
[2018-10-03] MEDS: Non-Formulary Drug (Diltiazem Hcl [Diltiazem Hcl] 180 MG) PO SCH (19:31)
--- NOTE | 2018-10-03 19:36 | P.PNFP ---
Subjective Interval history: Ms. Ortiz had no acute events overnight. Our visit to her room was delayed because patient patient is only Mongolian-speaking and preferred not to meet with us until her daughter was present. Her daughter arrived around 4:45 PM from work and we were able to see her then. Vision states she is feeling much better ; the pressure and pain she had in her chest is gone he feels like it was a giant bubble in her chest that she could not burp out. She feels like she can breathe okay and was able to work with PT today. Unfortunately, her blood sugar has been elevated due to steroid treatment yesterday and the fact that her Tresiba could not be administered due to lack of supplies and the fact that we do not have that medication on formulary. Instead we have started Levemir basal insulin to replace the Tresiba and have increased sliding scale to moderate. Patient denies chest pain, shortness of breath, fever, chills, nausea , vomiting, diarrhea, abdominal or leg pain. If her blood sugars are stable we will discharge her tomorrow. <Bennie Hernandez III - 10/03/18 19:36> Results - Labs Result diagrams: 10/04/18 07:11 10/04/18 07:11 <Chavez Silva - 10/04/18 12:03> Abnormal lab results 10/03/18 10/03/18 10/03/18 Range/Units 13:21 14:03 15:42 WBC (4.0-11.0) th/mm3 RBC (4.00-5.30) mil/mm3 Hgb (11.6-15.3) gm/dL Hct (35.0-46.0) % Plt Count (150-450) th/mm3 Neut % (Auto) (16.0-70.0) % Mobile % (Auto) (0.0-8.0) % Neut # (Auto) (1.8-7.7) th/mm3 Mobile # (Auto) (0.0-0.9) th/mm3 Potassium (3.5-5.1) meq/L BUN (7-18) mg/dL Creatinine (0.50-1.00) mg/dL Estimated GFR (>89) mL/min POC Glucose 527 H* 547 H* 507 H* (68-110) mg/dl B-Natriuretic Peptide (0-100) pg/mL 10/03/18 10/03/18 10/04/18 Range/Units 17:25 21:31 01:49 WBC (4.0-11.0) th/mm3 RBC (4.00-5.30) mil/mm3 Hgb (11.6-15.3) gm/dL Hct (35.0-46.0) % Plt Count (150-450) th/mm3 Neut % (Auto) (16.0-70.0) % Mobile % (Auto) (0.0-8.0) % Neut # (Auto) (1.8-7.7) th/mm3 Mobile # (Auto) (0.0-0.9) th/mm3 Potassium (3.5-5.1) meq/L BUN (7-18) mg/dL Creatinine (0.50-1.00) mg/dL Estimated GFR (>89) mL/min POC Glucose 475 H* 444 H 227 H (68-110) mg/dl B-Natriuretic Peptide (0-100) pg/mL 10/04/18 10/04/18 10/04/18 Range/Units 07:11 07:11 07:11 WBC 12.3 H (4.0-11.0) th/mm3 RBC 3.04 L (4.00-5.30) mil/mm3 Hgb 9.1 L (11.6-15.3) gm/dL Hct 26.3 L (35.0-46.0) % Plt Count 119 L (150-450) th/mm3 Neut % (Auto) 80.0 H (16.0-70.0) % Mobile % (Auto) 10.3 H (0.0-8.0) % Neut # (Auto) 9.8 H (1.8-7.7) th/mm3 Mobile # (Auto) 1.3 H (0.0-0.9) th/mm3 Potassium 3.2 L D (3.5-5.1) meq/L BUN 41 H (7-18) mg/dL Creatinine 1.43 H (0.50-1.00) mg/dL Estimated GFR 35 L (>89) mL/min POC Glucose (68-110) mg/dl B-Natriuretic Peptide 760 H (0-100) pg/mL 10/04/18 Range/Units 11:56 WBC (4.0-11.0) th/mm3 RBC (4.00-5.30) mil/mm3 Hgb (11.6-15.3) gm/dL Hct (35.0-46.0) % Plt Count (150-450) th/mm3 Neut % (Auto) (16.0-70.0) % Mobile % (Auto) (0.0-8.0) % Neut # (Auto) (1.8-7.7) th/mm3 Mobile # (Auto) (0.0-0.9) th/mm3 Potassium (3.5-5.1) meq/L BUN (7-18) mg/dL Creatinine (0.50-1.00) mg/dL Estimated GFR (>89) mL/min POC Glucose 188 H (68-110) mg/dl B-Natriuretic Peptide (0-100) pg/mL Short CBC 10/04/18 Range/Units 07:11 WBC 12.3 H (4.0-11.0) th/mm3 Hgb 9.1 L (11.6-15.3) gm/dL Hct 26.3 L (35.0-46.0) % Plt Count 119 L (150-450) th/mm3 BMP 10/04/18 07:11 Sodium 139 Potassium 3.2 L D Chloride 100 Carbon Dioxide 29.4 BUN 41 H Creatinine 1.43 H Calcium 8.8 <Chavez Silva - 10/04/18 12:03> Abnormal lab results 10/02/18 10/02/18 10/02/18 Range/Units 18:51 21:06 21:09 RBC (4.00-5.30) mil/mm3 Hgb (11.6-15.3) gm/dL Hct (35.0-46.0) % Plt Count (150-450) th/mm3 Neut % (Auto) (16.0-70.0) % Lymph # (Auto) (1.0-4.8) th/mm3 Sodium (136-145) meq/L Chloride (98-107) meq/L BUN (7-18) mg/dL Creatinine (0.50-1.00) mg/dL Estimated GFR (>89) mL/min POC Glucose 398 H (68-110) mg/dl Random Glucose (74-106) mg/dL Troponin I Less than 0.02 L (0.02-0.05) ng/mL B-Natriuretic Peptide 1136 H (0-100) pg/mL Urine Clarity (Clear) Urine Protein (Neg-Trace) mg/dL Urine Glucose (UA) (Negative) mg/dL Urine Occult Blood (Negative) Urine Bacteria (None) /hpf Urine Mucus (Occasional) /lpf 10/02/18 10/03/18 10/03/18 Range/Units Unknown 04:12 06:50 RBC 3.05 L (4.00-5.30) mil/mm3 Hgb 9.2 L (11.6-15.3) gm/dL Hct 26.7 L (35.0-46.0) % Plt Count 110 L (150-450) th/mm3 Neut % (Auto) 82.9 H (16.0-70.0) % Lymph # (Auto) 0.7 L (1.0-4.8) th/mm3 Sodium (136-145) meq/L Chloride (98-107) meq/L BUN (7-18) mg/dL Creatinine (0.50-1.00) mg/dL Estimated GFR (>89) mL/min POC Glucose 403 H (68-110) mg/dl Random Glucose (74-106) mg/dL Troponin I (0.02-0.05) ng/mL B-Natriuretic Peptide (0-100) pg/mL Urine Clarity Hazy H (Clear) Urine Protein 30 H (Neg-Trace) mg/dL Urine Glucose (UA) 150 H (Negative) mg/dL Urine Occult Blood Small H (Negative) Urine Bacteria Occasional H (None) /hpf Urine Mucus Few H (Occasional) /lpf 10/03/18 10/03/18 10/03/18 Range/Units 06:50 09:22 13:21 RBC (4.00-5.30) mil/mm3 Hgb (11.6-15.3) gm/dL Hct (35.0-46.0) % Plt Count (150-450) th/mm3 Neut % (Auto) (16.0-70.0) % Lymph # (Auto) (1.0-4.8) th/mm3 Sodium 134 L (136-145) meq/L Chloride 97 L (98-107) meq/L BUN 37 H (7-18) mg/dL Creatinine 1.62 H (0.50-1.00) mg/dL Estimated GFR 30 L (>89) mL/min POC Glucose 364 H 527 H* (68-110) mg/dl Random Glucose 382 H D (74-106) mg/dL Troponin I (0.02-0.05) ng/mL B-Natriuretic Peptide (0-100) pg/mL Urine Clarity (Clear) Urine Protein (Neg-Trace) mg/dL Urine Glucose (UA) (Negative) mg/dL Urine Occult Blood (Negative) Urine Bacteria (None) /hpf Urine Mucus (Occasional) /lpf 10/03/18 10/03/18 10/03/18 Range/Units 14:03 15:42 17:25 RBC (4.00-5.30) mil/mm3 Hgb (11.6-15.3) gm/dL Hct (35.0-46.0) % Plt Count (150-450) th/mm3 Neut % (Auto) (16.0-70.0) % Lymph # (Auto) (1.0-4.8) th/mm3 Sodium (136-145) meq/L Chloride (98-107) meq/L BUN (7-18) mg/dL Creatinine (0.50-1.00) mg/dL Estimated GFR (>89) mL/min POC Glucose 547 H* 507 H* 475 H* (68-110) mg/dl Random Glucose (74-106) mg/dL Troponin I (0.02-0.05) ng/mL B-Natriuretic Peptide (0-100) pg/mL Urine Clarity (Clear) Urine Protein (Neg-Trace) mg/dL Urine Glucose (UA) (Negative) mg/dL Urine Occult Blood (Negative) Urine Bacteria (None) /hpf Urine Mucus (Occasional) /lpf Short CBC 10/03/18 Range/Units 06:50 WBC 6.2 (4.0-11.0) th/mm3 Hgb 9.2 L (11.6-15.3) gm/dL Hct 26.7 L (35.0-46.0) % Plt Count 110 L (150-450) th/mm3 BMP 10/03/18 06:50 Sodium 134 L Potassium 4.2 Chloride 97 L Carbon Dioxide 28.8 BUN 37 H Creatinine 1.62 H Calcium 8.5 Cardiac Enzymes 10/02/18 Range/Units 21:06 Troponin I Less than 0.02 L (0.02-0.05) ng/mL Urine 10/02/18 Range/Units Unknown Urine Color Yellow (Yellw/Straw) Urine Clarity Hazy H (Clear) Urine pH 5.0 (5.0-8.5) Ur Specific [place] 1.009 (1.002-1.035) Urine Protein 30 H (Neg-Trace) mg/dL Urine Glucose (UA) 150 H (Negative) mg/dL <Bennie Hernandez III - 10/03/18 19:36> - Imaging Impressions Chest X-Ray 10/03/18 06:00 CONCLUSION: Stable examination not significantly changed. <Bennie Hernandez III - 10/03/18 19:36> Physical Exam Vital signs: Vital Signs 10/03/18 12:54 10/03/18 15:45 10/03/18 17:12 Temperature 97.3 F L 97.5 F L Pulse Rate 104 H 114 H 102 H Respiratory Rate 20 20 22 Blood Pressure 141/78 H 146/80 H Pulse Oximetry 97 97 10/03/18 19:42 10/03/18 19:52 10/03/18 20:24 Temperature 98.1 F Pulse Rate 102 H 114 H 102 H Respiratory Rate 17 18 Blood Pressure 140/91 H Pulse Oximetry 94 L 10/04/18 00:00 10/04/18 04:00 10/04/18 08:00 Temperature 98.2 F 98.7 F 98.4 F Pulse Rate 128 H 98 H 107 H Respiratory Rate 17 17 16 Blood Pressure 177/78 H 145/81 H 165/84 H Pulse Oximetry 97 94 L 99 Intake & Output 10/03/18 10/04/18 10/04/18 18:59 06:59 18:59 Intake Total 650 / 650 100 / 100 Output Total 550 / 550 Balance 650 / 650 -450 / -450 Intake: Oral 650 / 650 100 / 100 Output: Urine 550 / 550 <Chavez Silva - 10/04/18 12:03> Vital Signs 10/02/18 20:00 10/02/18 23:35 10/03/18 04:00 Temperature 98.3 F 98.0 F Pulse Rate 97 H 115 H 101 H Respiratory Rate 18 18 18 Blood Pressure 139/81 120/78 128/74 Pulse Oximetry 98 94 L 97 10/03/18 07:39 10/03/18 08:57 10/03/18 12:54 Temperature 97.8 F 97.3 F L Pulse Rate 83 100 H 104 H Respiratory Rate 16 16 20 Blood Pressure 133/92 H 141/78 H Pulse Oximetry 96 99 97 10/03/18 15:45 10/03/18 17:12 Temperature 97.5 F L Pulse Rate 114 H 102 H Respiratory Rate 20 22 Blood Pressure 146/80 H Pulse Oximetry 97 Intake & Output 10/03/18 10/03/18 10/04/18 06:59 18:59 06:59 Output Total 300 / 300 Balance -300 / -300 Output: Urine 300 / 300 <Bennie Hrenandez III - 10/03/18 19:36> Narrative: GENERAL: Elderly female lying in bed in [facility]. SKIN: Warm and dry. No rash or lesions. HEAD: Normocephalic. Atraumatic. MMM. Mouth with no ulcers, oropharynx clear without exudate. EYES: No scleral icterus. No injection or drainage. NECK: Supple, trachea midline. No JVD or lymphadenopathy. CARDIOVASCULAR: Tachycardia, irregular rhythm without murmurs, gallops, or rubs. RESPIRATORY: Patient is moving air better today than yesterday. No accessory muscle use. No cough today. Mild wheezing heard over right lung piper with no crackle or rhonchi noted. GASTROINTESTINAL: Abdomen soft, non-tender, nondistended. Positive bowel signs. MUSCULOSKELETAL: No cyanosis, or edema. BACK: No CVA tenderness. Notable thoracic kyphosis. <Bennie Hernandez III - 10/03/18 19:36> Assessment and Plan - Assessment (1) Dyspnea Code(s): R06.00 - Dyspnea, unspecified Status: Resolved (2) CHF (congestive heart failure) Code(s): I50.9 - Heart failure, unspecified Status: Chronic (3) Tachycardia Code(s): R00.0 - Tachycardia, unspecified Status: Acute (4) Chest pain Code(s): R07.9 - Chest pain, unspecified Status: Resolved (5) Hypertension Code(s): I10 - Essential (primary) hypertension Status: Chronic (6) Diabetes Code(s): E11.9 - Type 2 diabetes mellitus without complications Status: Chronic <Chavez Silva - 10/04/18 12:03> (1) Dyspnea Code(s): R06.00 - Dyspnea, unspecified Status: Resolved (2) CHF (congestive heart failure) Code(s): I50.9 - Heart failure, unspecified Status: Chronic (3) Tachycardia Code(s): R00.0 - Tachycardia, unspecified Status: Acute (4) Chest pain Code(s): R07.9 - Chest pain, unspecified Status: Resolved (5) Hypertension Code(s): I10 - Essential (primary) hypertension Status: Chronic (6) Diabetes Code(s): E11.9 - Type 2 diabetes mellitus without complications Status: Chronic <Bennie Hernandez III - 10/03/18 19:20> - Assessment and Plan 83 YO female with PMHx CHF, DM type 2, asthma, Atrial fibrillation, IA s/p 2 stents, hypothyroidism, with no appreciable improvement since treatment in mid- August who returns to the ED with her daughter with dyspnea, chest pain, and subjective fever to 99.8 degrees and found to have BNP 694 and CXR with worsening bibasilar densities greater in RLL and probable small bilateral pleural effusions and no appreciable WBC, however, pt started Azithromycin on . Pt Cr 1.17, but BL appears to be higher in the 1.2-1.3 range over the past year. Pt likely has CHF exacerbation with or without worsening PNA. Impression: CXR w/small pleural effusions and bibasilar densities worsening WBC 9.9 (likely obscured by antibiotics) BNP 694 1. CHF exacerbation -Daily weights -Strict I/Os with fluid restriction to 1L daily -Lasix 40 mg IV BID -Trend daily BNP -Sodium restriction to 2g daily -Tele 2. Asthma -Albuterol nebs q6h while awake -Continue home Symbicort 2 puff INH BID -Hold home Brovana INH BID 3. Dyspnea - resolved -Supplemental O2 and titrate -Continuous pulse Ox 4. Pneumonia - stable -Continue Azithromycin 250 mg BID -CXR PA&Lat today shawed no interval improvement -Due to pt WBC 9.9->6.2, lung exam with mild wheezing, and significant antibiotic allergies, will monitor for now 5. Afib - with rate to 110 -Last ECHO 09/06/17 with LV wnl and EF 60-65%, mild concentric LVH, mild MV regurg, moderate TV regurg, [id number] pulm HTN (60-70 mmHg), mild PV regurg -Increase home Metoprolol tartrate from 50 mg BID to TID in AM -Continue home Diltiazem 180 mg BID -Tele 6. Chest pain - likely 2/2 CHF and pleural effusions, resolved with Nitrostat SL x1 - resolved -Troponins x2 <0.02 -Nitrostat SL 0.4 mg SL q5m PRN 7. HTN - stable in 140s/70s-80s -Metoprolol as above 8. Diabetes - uncontrolled today due to steroids yesterday and due to no Tresiba supplies to administer today -Hold home Tresiba 20 units daily -Accuchecks -Levemir 14u PM and will dose in AM -Moderate SSI 9. Hypothyroidism -Continue home levothyroxine 125 mcg daily 10. Anemia - stable with Hgb >9 -FeSO4 325 mg daily -CBC to follow 11. FEN/GI/PPx Fluids: fluid restriction to 1L daily; PO fluids Electrolytes: will follow with BMP Nutrition: Cardiac diet with sodium restriction to 2g daily GI: Continue home Pepcid 10 mg daily PPx: Continue pt's home Eliquis 2.5 mg BID Tylenol 650 mg PO PRN Dispo: likely 10/04 -Pt to follow up with Dr Day as outpt Pt SDW Dr Silva <Bennie Hernandez III - 10/03/18 19:36> - Attending Attestation See the residents documentation for details. I saw and evaluated the patient regarding the long portions of this evaluation and agree with the residents findings and plans as written. Parts of this note were created using [employer] voice recognition software program. While efforts were made to correct any mistakes made by this software, some mistakes, errors, and omissions may remain in the final note that were not caught when the note was originally created. Plan of care was discussed and agreed upon with the patient as specifically documented in the above note. An opportunity to ask questions with explanation was provided. Patient voiced understanding on all information reviewed and discussed. <Chavez Silva - 10/04/18 12:03> <Cesar Hernandez IIIbeka Hernandez - Last Filed: 10/03/18 19:20> (4) Chest pain Qualifiers: Chest pain type: precordial pain Qualified Code(s): R07.2 - Precordial pain (5) Hypertension Qualifiers: Hypertension type: essential hypertension Qualified Code(s): I10 - Essential (primary) hypertension (6) Diabetes Qualifiers: Diabetes mellitus type: type 2 Diabetes mellitus assistant terminal manager insulin use: with assistant terminal manager use Diabetes mellitus complication status: with kidney complications Diabetes mellitus complication detail: with chronic kidney disease Chronic kidney disease stage: stage 3 (moderate) Qualified Code(s): E11.22 - Type 2 diabetes mellitus with diabetic chronic kidney disease; N18.3 - Chronic kidney disease, stage 3 (moderate); Z79.4 - retirement (current) use of insulin <Chavez Silva - Last Filed: 10/04/18 12:03> (2) CHF (congestive heart failure) Qualifiers: (4) Chest pain Qualifiers: Chest pain type: precordial pain Qualified Code(s): R07.2 - Precordial pain (5) Hypertension Qualifiers: Hypertension type: essential hypertension Qualified Code(s): I10 - Essential (primary) hypertension (6) Diabetes Qualifiers: Diabetes mellitus type: type 2 Diabetes mellitus assistant terminal manager insulin use: with assistant terminal manager use Diabetes mellitus complication status: with kidney complications Diabetes mellitus complication detail: with chronic kidney disease Chronic kidney disease stage: stage 3 (moderate) Qualified Code(s): E11.22 - Type 2 diabetes mellitus with diabetic chronic kidney disease; N18.3 - Chronic kidney disease, stage 3 (moderate); Z79.4 - retirement (current) use of insulin <Bennie Hernandez III - Last Filed: 10/03/18 19:20> (4) Chest pain Qualifiers: Chest pain type: precordial pain Qualified Code(s): R07.2 - Precordial pain (5) Hypertension Qualifiers: Hypertension type: essential hypertension Qualified Code(s): I10 - Essential (primary) hypertension (6) Diabetes Qualifiers: Diabetes mellitus type: type 2 Diabetes mellitus nursing home insulin use: with nursing home use Diabetes mellitus complication status: with kidney complications Diabetes mellitus complication detail: with chronic kidney disease Chronic kidney disease stage: stage 3 (moderate) Qualified Code(s): E11.22 - Type 2 diabetes mellitus with diabetic chronic kidney disease; N18.3 - Chronic kidney disease, stage 3 (moderate); Z79.4 - long term care pharmacist (current) use of insulin <Chavez Silva - Last Filed: 10/04/18 12:03> (2) CHF (congestive heart failure) Qualifiers: (4) Chest pain Qualifiers: Chest pain type: precordial pain Qualified Code(s): R07.2 - Precordial pain (5) Hypertension Qualifiers: Hypertension type: essential hypertension Qualified Code(s): I10 - Essential (primary) hypertension (6) Diabetes Qualifiers: Diabetes mellitus type: type 2 Diabetes mellitus assistant terminal manager insulin use: with nursing home use Diabetes mellitus complication status: with kidney complications Diabetes mellitus complication detail: with chronic kidney disease Chronic kidney disease stage: stage 3 (moderate) Qualified Code(s): E11.22 - Type 2 diabetes mellitus with diabetic chronic kidney disease; N18.3 - Chronic kidney disease, stage 3 (moderate); Z79.4 - retirement (current) use of insulin
[2018-10-03] MEDS: dilTIAZem CD 180 MG Capsule PO SCH (22:02)
[2018-10-03] MEDS: Sodium Chloride 0.9% 2 ML Flush BID IV.FLUSH SCH (22:03)
[2018-10-04] MEDS: Sucralfate 1 GM Tablet PO SCH ×4 (01:54→22:45)
[2018-10-04 08:26] LABS: Baso % (Auto) 0.1 % (0.0-2.0); Hematocrit 26.3 % (35.0-46.0); Hemoglobin 9.1 gm/dL (11.6-15.3); Lymph # (Auto) 1.2 th/mm3 (1.0-4.8); Lymph % (Auto) 9.6 % (9.0-44.0); Mean Corpuscular HGB Conc 34.6 % (32.0-36.0); Mean Corpuscular Hemoglobin 29.9 pg (27.0-34.0); Mean Corpuscular Volume 86.6 fL (80.0-100.0); Mean Platelet Volume 8.9 fL (7.0-11.0); Mono # (Auto) 1.3 th/mm3 (0.0-0.9); Mono % (Auto) 10.3 % (0.0-8.0); Neut # (Auto) 9.8 th/mm3 (1.8-7.7); Platelet Count 119 th/mm3 (150-450); Red Blood Count 3.04 mil/mm3 (4.00-5.30); Red Cell Distribution Width 15.3 % (11.6-17.2); White Blood Count 12.3 th/mm3 (4.0-11.0)
[2018-10-04 09:00] LABS: Calcium 8.8 mg/dL (8.5-10.1); Carbon Dioxide 29.4 meq/L (21.0-32.0); Potassium 3.2 meq/L (3.5-5.1)
[2018-10-04] MEDS ORDERED: Insulin Detemir Inj 1,000 UNIT/10 ML Vial SQ SCH (09:00)
[2018-10-04] MEDS ORDERED: TRESIBA SQ SCH (09:00)
[2018-10-04] MEDS ORDERED: Vancomycin Consult Pharmacy OTHER PRN (10:54)
--- NOTE | 2018-10-04 11:24 | P.PNFP ---
Subjective Interval history: Patient seen and examined at bedside this morning. Patient's daughter acted as air and water filler as there is no stratus translation unit in the H pod. Patient's daughter reports that the patient refused her medications last night. The patient states that she refused her medications because she was not sure what the medications were for and because her daughter was not present during medication administration. Patient became tearful at this interview and patient and daughter became very argumentative. They were speaking in Nauruan. It was discussed with the patient and her daughter importance of the patient taking her medications as she does have a significant infection. Patient was threatening to leave. Patient voiced understanding after some persuading. Patient denied shortness of breath, chest pain, abdominal pain, nausea, vomiting , diarrhea. <Yohana Gallegos - 10/04/18 12:31> Results - Labs Result diagrams: 10/06/18 04:54 10/06/18 04:54 <Chavez Silva - 10/06/18 15:35> Abnormal lab results 10/05/18 10/05/18 10/06/18 Range/Units 17:15 20:28 04:54 RBC 3.14 L (4.00-5.30) mil/mm3 Hgb 9.5 L (11.6-15.3) gm/dL Hct 27.0 L (35.0-46.0) % Plt Count 107 L (150-450) th/mm3 Neut % (Auto) 72.6 H (16.0-70.0) % Tate % (Auto) 12.4 H (0.0-8.0) % Tate # (Auto) 1.0 H (0.0-0.9) th/mm3 Potassium 3.0 L (3.5-5.1) meq/L Carbon Dioxide 33.6 H (21.0-32.0) meq/L BUN 30 H (7-18) mg/dL Creatinine 1.23 H (0.50-1.00) mg/dL Estimated GFR 41 L (>89) mL/min POC Glucose 283 H (68-110) mg/dl Random Glucose (74-106) mg/dL Calcium 8.0 L (8.5-10.1) mg/dL B-Natriuretic Peptide (0-100) pg/mL 10/06/18 10/06/18 10/06/18 Range/Units 04:54 04:54 09:17 RBC (4.00-5.30) mil/mm3 Hgb (11.6-15.3) gm/dL Hct (35.0-46.0) % Plt Count (150-450) th/mm3 Neut % (Auto) (16.0-70.0) % Tate % (Auto) (0.0-8.0) % Tate # (Auto) (0.0-0.9) th/mm3 Potassium (3.5-5.1) meq/L Carbon Dioxide (21.0-32.0) meq/L BUN 29 H (7-18) mg/dL Creatinine 1.15 H (0.50-1.00) mg/dL Estimated GFR 45 L (>89) mL/min POC Glucose 222 H (68-110) mg/dl Random Glucose 200 H D (74-106) mg/dL Calcium 8.3 L (8.5-10.1) mg/dL B-Natriuretic Peptide 409 H (0-100) pg/mL 10/06/18 Range/Units 13:23 RBC (4.00-5.30) mil/mm3 Hgb (11.6-15.3) gm/dL Hct (35.0-46.0) % Plt Count (150-450) th/mm3 Neut % (Auto) (16.0-70.0) % Tate % (Auto) (0.0-8.0) % Tate # (Auto) (0.0-0.9) th/mm3 Potassium (3.5-5.1) meq/L Carbon Dioxide (21.0-32.0) meq/L BUN (7-18) mg/dL Creatinine (0.50-1.00) mg/dL Estimated GFR (>89) mL/min POC Glucose 228 H (68-110) mg/dl Random Glucose (74-106) mg/dL Calcium (8.5-10.1) mg/dL B-Natriuretic Peptide (0-100) pg/mL Short CBC 10/06/18 Range/Units 04:54 WBC 7.7 (4.0-11.0) th/mm3 Hgb 9.5 L (11.6-15.3) gm/dL Hct 27.0 L (35.0-46.0) % Plt Count 107 L (150-450) th/mm3 BMP 10/05/18 10/06/18 20:28 04:54 Sodium 140 139 Potassium 3.0 L 3.7 Chloride 99 101 Carbon Dioxide 33.6 H 31.8 BUN 30 H 29 H Creatinine 1.23 H 1.15 H Calcium 8.0 L 8.3 L <SilvaChavez - 10/06/18 15:35> Abnormal lab results 10/03/18 10/03/18 10/03/18 Range/Units 13:21 14:03 15:42 WBC (4.0-11.0) th/mm3 RBC (4.00-5.30) mil/mm3 Hgb (11.6-15.3) gm/dL Hct (35.0-46.0) % Plt Count (150-450) th/mm3 Neut % (Auto) (16.0-70.0) % Tate % (Auto) (0.0-8.0) % Neut # (Auto) (1.8-7.7) th/mm3 Tate # (Auto) (0.0-0.9) th/mm3 Potassium (3.5-5.1) meq/L BUN (7-18) mg/dL Creatinine (0.50-1.00) mg/dL Estimated GFR (>89) mL/min POC Glucose 527 H* 547 H* 507 H* (68-110) mg/dl B-Natriuretic Peptide (0-100) pg/mL 10/03/18 10/03/18 10/04/18 Range/Units 17:25 21:31 01:49 WBC (4.0-11.0) th/mm3 RBC (4.00-5.30) mil/mm3 Hgb (11.6-15.3) gm/dL Hct (35.0-46.0) % Plt Count (150-450) th/mm3 Neut % (Auto) (16.0-70.0) % Tate % (Auto) (0.0-8.0) % Neut # (Auto) (1.8-7.7) th/mm3 Tate # (Auto) (0.0-0.9) th/mm3 Potassium (3.5-5.1) meq/L BUN (7-18) mg/dL Creatinine (0.50-1.00) mg/dL Estimated GFR (>89) mL/min POC Glucose 475 H* 444 H 227 H (68-110) mg/dl B-Natriuretic Peptide (0-100) pg/mL 10/04/18 10/04/18 10/04/18 Range/Units 07:11 07:11 07:11 WBC 12.3 H (4.0-11.0) th/mm3 RBC 3.04 L (4.00-5.30) mil/mm3 Hgb 9.1 L (11.6-15.3) gm/dL Hct 26.3 L (35.0-46.0) % Plt Count 119 L (150-450) th/mm3 Neut % (Auto) 80.0 H (16.0-70.0) % Tate % (Auto) 10.3 H (0.0-8.0) % Neut # (Auto) 9.8 H (1.8-7.7) th/mm3 Tate # (Auto) 1.3 H (0.0-0.9) th/mm3 Potassium 3.2 L D (3.5-5.1) meq/L BUN 41 H (7-18) mg/dL Creatinine 1.43 H (0.50-1.00) mg/dL Estimated GFR 35 L (>89) mL/min POC Glucose (68-110) mg/dl B-Natriuretic Peptide 760 H (0-100) pg/mL Short CBC 10/04/18 Range/Units 07:11 WBC 12.3 H (4.0-11.0) th/mm3 Hgb 9.1 L (11.6-15.3) gm/dL Hct 26.3 L (35.0-46.0) % Plt Count 119 L (150-450) th/mm3 BMP 10/04/18 07:11 Sodium 139 Potassium 3.2 L D Chloride 100 Carbon Dioxide 29.4 BUN 41 H Creatinine 1.43 H Calcium 8.8 <Yohana Gallegos - 10/04/18 11:24> Physical Exam Vital signs: Vital Signs 10/05/18 16:35 10/05/18 19:48 10/05/18 20:01 Temperature 98.4 F 98.2 F Pulse Rate 79 83 79 Respiratory Rate 16 18 18 Blood Pressure 125/99 H 139/70 Pulse Oximetry 99 98 99 10/06/18 00:00 10/06/18 03:55 10/06/18 08:00 Temperature 98.5 F 98.0 F 98.1 F Pulse Rate 88 81 90 Respiratory Rate 18 18 20 Blood Pressure 135/71 132/70 152/76 H Pulse Oximetry 98 96 98 10/06/18 08:34 10/06/18 12:00 Temperature 98.0 F Pulse Rate 90 89 Respiratory Rate 19 18 Blood Pressure 142/83 H Pulse Oximetry 98 97 Intake & Output 10/05/18 10/06/18 10/06/18 18:59 06:59 18:59 Intake Total 350 / 350 200 / 200 Balance 350 / 350 200 / 200 Weight 52 kg Intake: IV 350 / 350 200 / 200 Azactam Inj 1,000 MG In NS Inj 100 / 100 200 / 200 100 ML @ 200 mls/hr IV.SIG Q8H SHAKIRA Rx#:[id number] Vancomycin Inj 1,000 MG In NS 250 / 250 Inj 250 ML @ 250 mls/hr IV.SIG Q24H SHAKIRA Rx#:[id number] Other: # Voids 1 <SilvaChavez - 10/06/18 15:35> Vital Signs 10/03/18 12:54 10/03/18 15:45 10/03/18 17:12 Temperature 97.3 F L 97.5 F L Pulse Rate 104 H 114 H 102 H Respiratory Rate 20 20 22 Blood Pressure 141/78 H 146/80 H Pulse Oximetry 97 97 10/03/18 19:42 10/03/18 19:52 10/03/18 20:24 Temperature 98.1 F Pulse Rate 102 H 114 H 102 H Respiratory Rate 17 18 Blood Pressure 140/91 H Pulse Oximetry 94 L 10/04/18 00:00 10/04/18 04:00 10/04/18 08:00 Temperature 98.2 F 98.7 F 98.4 F Pulse Rate 128 H 98 H 107 H Respiratory Rate 17 17 16 Blood Pressure 177/78 H 145/81 H 165/84 H Pulse Oximetry 97 94 L 99 Intake & Output 10/03/18 10/04/18 10/04/18 18:59 06:59 18:59 Intake Total 650 / 650 100 / 100 Output Total 550 / 550 Balance 650 / 650 -450 / -450 Intake: Oral 650 / 650 100 / 100 Output: Urine 550 / 550 <Yohana Gallegos - 10/04/18 11:24> Narrative: GENERAL: NAD. SKIN: Warm and dry. No rash or lesions. HEAD: Normocephalic. Atraumatic. MMM. Mouth with no ulcers, oropharynx clear without exudate. EYES: No scleral icterus. No injection or drainage. CARDIOVASCULAR: Tachycardia, irregular rhythm without murmurs, gallops, or rubs. RESPIRATORY: No accessory muscle use. No cough today. Decreased breath sounds on the right. Clear to auscultation on the left. No wheezing, rhonchi, crackles. GASTROINTESTINAL: Abdomen soft, non-tender, nondistended. Positive bowel signs. MUSCULOSKELETAL: No cyanosis, or edema. <Yohana Gallegos - 10/04/18 12:31> Assessment and Plan - Assessment (1) Dyspnea Code(s): R06.00 - Dyspnea, unspecified Status: Resolved (2) CHF (congestive heart failure) Code(s): I50.9 - Heart failure, unspecified Status: Chronic (3) Tachycardia Code(s): R00.0 - Tachycardia, unspecified Status: Acute (4) Hypertension Code(s): I10 - Essential (primary) hypertension Status: Chronic (5) Diabetes Code(s): E11.9 - Type 2 diabetes mellitus without complications Status: Chronic <Chavez Silva - 10/06/18 15:35> (1) Dyspnea Code(s): R06.00 - Dyspnea, unspecified Status: Resolved (2) CHF (congestive heart failure) Code(s): I50.9 - Heart failure, unspecified Status: Chronic (3) Tachycardia Code(s): R00.0 - Tachycardia, unspecified Status: Acute (4) Hypertension Code(s): I10 - Essential (primary) hypertension Status: Chronic (5) Diabetes Code(s): E11.9 - Type 2 diabetes mellitus without complications Status: Chronic <Yohana Gallegos - 10/04/18 12:19> - Assessment and Plan 83 YO female with PMHx CHF, DM type 2, asthma, Atrial fibrillation, IL s/p 2 stents, hypothyroidism, with no appreciable improvement since treatment in mid- August who returns to the ED with her daughter with dyspnea, chest pain, and subjective fever to 99.8 degrees and found to have BNP 694 and CXR with worsening bibasilar densities greater in RLL and probable small bilateral pleural effusions and no appreciable WBC, however, pt started Azithromycin on . Pt Cr 1.17, but BL appears to be higher in the 1.2-1.3 range over the past year. Pt likely has CHF exacerbation with worsening PNA. 1. CHF exacerbation -Daily weights -Strict I/Os with fluid restriction to 1L daily -Lasix 40 mg IV BID -Trend daily BNP- 760 today -Sodium restriction to 2g daily -Tele 2. Asthma -Albuterol nebs q6h while awake -Continue home Symbicort 2 puff INH BID -Hold home Brovana INH BID 3. Dyspnea - resolved -Supplemental O2 and titrate -Continuous pulse Ox 4. Pneumonia - stable -Discontinue azithromycin 250 mg BID -Start aztreonam renally dosed at 1 g every 8 hours and vancomycin (pharmacy to renally dose) -CXR PA&Lat 10/03 showed no interval improvement -Repeat chest x-ray on -White blood cell 12.3 today 5. Afib - with rate to 110 -Last ECHO 09/06/17 with LV wnl and EF 60-65%, mild concentric LVH, mild MV regurg, moderate TV regurg, eps-gv-doihge pulm HTN (60-70 mmHg), mild PV regurg -Increase home Metoprolol tartrate from 50 mg TID -Continue home Diltiazem 180 mg BID -Tele 6. Chest pain - likely 2/2 CHF and pleural effusions, resolved with Nitrostat SL x1 - resolved -Troponins x2 <0.02 -Nitrostat SL 0.4 mg SL q5m PRN 7. HTN - stable in 140s/70s-80s -Metoprolol as above 8. Diabetes - uncontrolled today due to steroids yesterday and due to no Tresiba supplies to administer today -Hold home Tresiba 20 units daily -Accuchecks -Levemir 20 units -Moderate SSI 9. Hypothyroidism -Continue home levothyroxine 125 mcg daily 10. Anemia - stable with Hgb >9 -FeSO4 325 mg daily -CBC to follow 11. FEN/GI/PPx Fluids: fluid restriction to 1L daily; PO fluids Electrolytes: will follow with BMP Nutrition: Cardiac diet with sodium restriction to 2g daily GI: Continue home Pepcid 10 mg daily PPx: Continue pt's home Eliquis 2.5 mg BID Tylenol 650 mg PO PRN Dispo: End of this week -Pt to follow up with Dr Day as outpt Pt SDW Dr Silva <Yohana Gallegos - 10/04/18 12:31> - Attending Attestation See the residents documentation for details. I saw and evaluated the patient regarding the long portions of this evaluation and agree with the residents findings and plans as written. Parts of this note were created using [employer] voice recognition software program. While efforts were made to correct any mistakes made by this software, some mistakes, errors, and omissions may remain in the final note that were not caught when the note was originally created. Plan of care was discussed and agreed upon with the patient as specifically documented in the above note. An opportunity to ask questions with explanation was provided. Patient voiced understanding on all information reviewed and discussed. <Chavez Silva - 10/06/18 15:35> <Yohana Gallegos - Last Filed: 10/04/18 12:19> (4) Hypertension Qualifiers: Hypertension type: essential hypertension Qualified Code(s): I10 - Essential (primary) hypertension (5) Diabetes Qualifiers: Diabetes mellitus type: type 2 Diabetes mellitus senior care insulin use: with terminal operations manager use Diabetes mellitus complication status: with kidney complications Diabetes mellitus complication detail: with chronic kidney disease Chronic kidney disease stage: stage 3 (moderate) Qualified Code(s): E11.22 - Type 2 diabetes mellitus with diabetic chronic kidney disease; N18.3 - Chronic kidney disease, stage 3 (moderate); Z79.4 - [facility] (current) use of insulin <Chavez Silva - Last Filed: 10/06/18 15:35> (2) CHF (congestive heart failure) Qualifiers: (4) Hypertension Qualifiers: Hypertension type: essential hypertension Qualified Code(s): I10 - Essential (primary) hypertension (5) Diabetes Qualifiers: Diabetes mellitus type: type 2 Diabetes mellitus senior care insulin use: with senior care use Diabetes mellitus complication status: with kidney complications Diabetes mellitus complication detail: with chronic kidney disease Chronic kidney disease stage: stage 3 (moderate) Qualified Code(s): E11.22 - Type 2 diabetes mellitus with diabetic chronic kidney disease; N18.3 - Chronic kidney disease, stage 3 (moderate); 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 <Yohana Gallegos - Last Filed: 10/04/18 12:19> (4) Hypertension Qualifiers: Hypertension type: essential hypertension Qualified Code(s): I10 - Essential (primary) hypertension (5) Diabetes Qualifiers: Diabetes mellitus type: type 2 Diabetes mellitus senior care insulin use: with senior care use Diabetes mellitus complication status: with kidney complications Diabetes mellitus complication detail: with chronic kidney disease Chronic kidney disease stage: stage 3 (moderate) Qualified Code(s): E11.22 - Type 2 diabetes mellitus with diabetic chronic kidney disease; N18.3 - Chronic kidney disease, stage 3 (moderate); 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 <Chavez Silva - Last Filed: 10/06/18 15:35> (2) CHF (congestive heart failure) Qualifiers: (4) Hypertension Qualifiers: Hypertension type: essential hypertension Qualified Code(s): I10 - Essential (primary) hypertension (5) Diabetes Qualifiers: Diabetes mellitus type: type 2 Diabetes mellitus terminal operations manager insulin use: with terminal operations manager use Diabetes mellitus complication status: with kidney complications Diabetes mellitus complication detail: with chronic kidney disease Chronic kidney disease stage: stage 3 (moderate) Qualified Code(s): E11.22 - Type 2 diabetes mellitus with diabetic chronic kidney disease; N18.3 - Chronic kidney disease, stage 3 (moderate); 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
[2018-10-04] MEDS: Levothyroxine 125 MCG Tablet PO SCH (11:44)
[2018-10-04] MEDS: Insulin NovoLOG Aspart Correctional Sugar Inj SQ SCH ×4 (11:44→22:44)
[2018-10-04] MEDS: Senna/Docusate Sodium 8.6/50 MG Tablet PO SCH ×2 (12:00→22:45)
[2018-10-04] MEDS: dilTIAZem CD 180 MG Capsule PO SCH ×2 (12:00→22:43)
[2018-10-04] MEDS: Azithromycin 250 MG Tablet PO SCH (12:01)
[2018-10-04] MEDS: Metoprolol Tartrate 50 MG Tablet PO SCH ×3 (12:01→19:47)
[2018-10-04] MEDS: Budesonide-Formoterol 160/4.5 MCG 6 GM Inhaler INH SCH ×2 (12:01→22:43)
[2018-10-04] MEDS: Ferrous Sulfate 325 MG Tablet PO SCH (13:51)
[2018-10-04] MEDS: Vancomycin Inj 1,000 MG in Sodium Chlor 0.9% Inj 250 ML IV.SIG SCH (16:05)
[2018-10-04] MEDS: Famotidine 20 MG Tablet PO SCH ×2 (16:24→22:43)
[2018-10-04] MEDS: Sodium Chloride 0.9% 2 ML Flush BID IV.FLUSH SCH ×2 (17:31→22:43)
[2018-10-05] MEDS: Sucralfate 1 GM Tablet PO SCH ×4 (03:23→20:57)
[2018-10-05] MEDS: Levothyroxine 125 MCG Tablet PO SCH (05:51)
--- NOTE | 2018-10-05 08:47 | XR ---
EXAM DATE: 10/05/2018 8:37 AM EST AGE/SEX: 83 years / Female INDICATIONS: . Congestion. CLINICAL DATA: This is the patient's initial encounter. Patient reports that signs and symptoms have been present for 1 day and indicates a pain score of 0/10. MEDICAL/SURGICAL HISTORY: None. Pacemaker. COMPARISON: [facility] [place] 2[place] AP&LAT, 10/03/2018. . FINDINGS: Small right pleural effusion remains, however appears smaller since the prior exam. Slight cardiomega ly remains and cardiac pacer wires have not changed. Right lung base consolidation is difficult to ex clude, however left lung is clear. CONCLUSION: Slight reduction in right pleural effusion. Electronically signed by: Sandra Todd MD 10/05/2018 8:46 AM EST
[2018-10-05] MEDS: Senna/Docusate Sodium 8.6/50 MG Tablet PO SCH ×2 (10:23→20:57)
[2018-10-05] MEDS: dilTIAZem CD 180 MG Capsule PO SCH ×2 (10:24→20:57)
[2018-10-05] MEDS: Insulin NovoLOG Aspart Correctional Sugar Inj SQ SCH ×4 (10:24→21:01)
[2018-10-05] MEDS: Metoprolol Tartrate 50 MG Tablet PO SCH ×3 (10:25→18:10)
[2018-10-05] MEDS: Sodium Chloride 0.9% 2 ML Flush BID IV.FLUSH SCH ×2 (10:26→20:59)
[2018-10-05] MEDS: Famotidine 20 MG Tablet PO SCH ×2 (10:31→20:57)
[2018-10-05] MEDS: Ferrous Sulfate 325 MG Tablet PO SCH (10:32)
[2018-10-05] MEDS: Budesonide-Formoterol 160/4.5 MCG 6 GM Inhaler INH SCH ×2 (10:39→21:02)
--- NOTE | 2018-10-05 11:43 | P.PNFP ---
Subjective Interval history: Ms. Ortiz had no acute events overnight. He is sitting at bedside getting ready to eat her breakfast on interview today. She is stable on 2 L nasal cannula which is her home regimen. Her daughter explains that she had coughed up some white mucus earlier today which is encouraging sign. She has not movement been moved out of the H-pod; however, there is a shortage of beds in the hospital right now and it was explained to her and her daughter that she will be moved upstairs as soon as there is a bed available. Patient feels comfortable and it was explained to her and her daughter that we will likely discharge her tomorrow after she receives 48 hours of IV that are more adequately treating her pneumonia than was the p.o. azithromycin. Denies chest pain, shortness of breath, fever, chills, nausea, vomiting, diarrhea, leg or abdominal pain. <Bennie Hernandez III - 10/05/18 11:42> Results - Labs Result diagrams: 10/06/18 04:54 10/06/18 04:54 <Chavez Silva - 10/06/18 15:45> Abnormal lab results 10/05/18 10/05/18 10/06/18 Range/Units 17:15 20:28 04:54 RBC 3.14 L (4.00-5.30) mil/mm3 Hgb 9.5 L (11.6-15.3) gm/dL Hct 27.0 L (35.0-46.0) % Plt Count 107 L (150-450) th/mm3 Neut % (Auto) 72.6 H (16.0-70.0) % Riley % (Auto) 12.4 H (0.0-8.0) % Riley # (Auto) 1.0 H (0.0-0.9) th/mm3 Potassium 3.0 L (3.5-5.1) meq/L Carbon Dioxide 33.6 H (21.0-32.0) meq/L BUN 30 H (7-18) mg/dL Creatinine 1.23 H (0.50-1.00) mg/dL Estimated GFR 41 L (>89) mL/min POC Glucose 283 H (68-110) mg/dl Random Glucose (74-106) mg/dL Calcium 8.0 L (8.5-10.1) mg/dL B-Natriuretic Peptide (0-100) pg/mL 10/06/18 10/06/18 10/06/18 Range/Units 04:54 04:54 09:17 RBC (4.00-5.30) mil/mm3 Hgb (11.6-15.3) gm/dL Hct (35.0-46.0) % Plt Count (150-450) th/mm3 Neut % (Auto) (16.0-70.0) % Riley % (Auto) (0.0-8.0) % Riley # (Auto) (0.0-0.9) th/mm3 Potassium (3.5-5.1) meq/L Carbon Dioxide (21.0-32.0) meq/L BUN 29 H (7-18) mg/dL Creatinine 1.15 H (0.50-1.00) mg/dL Estimated GFR 45 L (>89) mL/min POC Glucose 222 H (68-110) mg/dl Random Glucose 200 H D (74-106) mg/dL Calcium 8.3 L (8.5-10.1) mg/dL B-Natriuretic Peptide 409 H (0-100) pg/mL 10/06/18 Range/Units 13:23 RBC (4.00-5.30) mil/mm3 Hgb (11.6-15.3) gm/dL Hct (35.0-46.0) % Plt Count (150-450) th/mm3 Neut % (Auto) (16.0-70.0) % Riley % (Auto) (0.0-8.0) % Riley # (Auto) (0.0-0.9) th/mm3 Potassium (3.5-5.1) meq/L Carbon Dioxide (21.0-32.0) meq/L BUN (7-18) mg/dL Creatinine (0.50-1.00) mg/dL Estimated GFR (>89) mL/min POC Glucose 228 H (68-110) mg/dl Random Glucose (74-106) mg/dL Calcium (8.5-10.1) mg/dL B-Natriuretic Peptide (0-100) pg/mL Short CBC 10/06/18 Range/Units 04:54 WBC 7.7 (4.0-11.0) th/mm3 Hgb 9.5 L (11.6-15.3) gm/dL Hct 27.0 L (35.0-46.0) % Plt Count 107 L (150-450) th/mm3 [facility] 10/05/18 10/06/18 20:28 04:54 Sodium 140 139 Potassium 3.0 L 3.7 Chloride 99 101 Carbon Dioxide 33.6 H 31.8 BUN 30 H 29 H Creatinine 1.23 H 1.15 H Calcium 8.0 L 8.3 L <Chavez Silva - 10/06/18 15:45> Abnormal lab results 10/04/18 10/04/18 10/04/18 Range/Units 11:56 14:23 19:05 Creatinine (0.50-1.00) mg/dL Estimated GFR (>89) mL/min POC Glucose 188 H 184 H 264 H (68-110) mg/dl 10/04/18 10/05/18 10/05/18 Range/Units 22:19 06:57 08:04 Creatinine 1.11 H (0.50-1.00) mg/dL Estimated GFR 47 L (>89) mL/min POC Glucose 232 H 191 H (68-110) mg/dl [facility] 10/05/18 06:57 Creatinine 1.11 H <Bennie Hernandez III - 10/05/18 11:42> - Imaging Impressions Chest X-Ray 10/05/18 06:00 CONCLUSION: Slight reduction in right pleural effusion. <Bennie Hernandez III - 10/05/18 11:42> Physical Exam Vital signs: Vital Signs 10/05/18 16:35 10/05/18 19:48 10/05/18 20:01 Temperature 98.4 F 98.2 F Pulse Rate 79 83 79 Respiratory Rate 16 18 18 Blood Pressure 125/99 H 139/70 Pulse Oximetry 99 98 99 10/06/18 00:00 10/06/18 03:55 10/06/18 08:00 Temperature 98.5 F 98.0 F 98.1 F Pulse Rate 88 81 90 Respiratory Rate 18 18 20 Blood Pressure 135/71 132/70 152/76 H Pulse Oximetry 98 96 98 10/06/18 08:34 10/06/18 12:00 Temperature 98.0 F Pulse Rate 90 89 Respiratory Rate 19 18 Blood Pressure 142/83 H Pulse Oximetry 98 97 Intake & Output 10/05/18 10/06/18 10/06/18 18:59 06:59 18:59 Intake Total 350 / 350 200 / 200 Balance 350 / 350 200 / 200 Weight 52 kg Intake: IV 350 / 350 200 / 200 Azactam Inj 1,000 MG In NS Inj 100 / 100 200 / 200 100 ML @ 200 mls/hr IV.SIG Q8H SHAKIRA Rx#:[id number] Vancomycin Inj 1,000 MG In NS 250 / 250 Inj 250 ML @ 250 mls/hr IV.SIG Q24H SHAKIRA Rx#:[id number] Other: # Voids 1 <Chavez Silva - 10/06/18 15:45> Vital Signs 10/04/18 12:00 10/04/18 14:03 10/04/18 16:00 Temperature 97.6 F 99.3 F Pulse Rate 100 H 100 H 103 H Respiratory Rate 16 16 18 Blood Pressure 156/88 H 139/78 Pulse Oximetry 96 97 10/04/18 19:32 10/04/18 20:00 10/05/18 00:00 Temperature 98.8 F 98.7 F Pulse Rate 114 H 111 H Respiratory Rate 17 18 Blood Pressure 151/78 H 150/80 H Pulse Oximetry 95 97 91 L 10/05/18 04:00 10/05/18 07:42 10/05/18 07:43 Temperature 98.4 F Pulse Rate 83 75 Respiratory Rate 17 18 Blood Pressure 135/70 Pulse Oximetry 92 L 95 10/05/18 08:03 Temperature 98.4 F Pulse Rate 98 H Respiratory Rate 16 Blood Pressure 130/70 Pulse Oximetry 92 L Intake & Output 10/04/18 10/05/18 10/05/18 18:59 06:59 18:59 Intake Total 250 / 250 350 / 350 Output Total 1200 / 1200 Balance 250 / 250 -850 / -850 Intake: IV 250 / 250 200 / 200 Azactam Inj 1,000 MG In NS Inj 200 / 200 100 ML @ 200 mls/hr IV.SIG Q8H SHAKIRA Rx#:[id number] Vancomycin Inj 1,000 MG In NS 250 / 250 Inj 250 ML @ 250 mls/hr IV.SIG Q24H SHAKIRA Rx#:[id number] Oral 150 / 150 Output: Urine 1200 / 1200 Other: # Voids 4 <Bennie Hernandez III - 10/05/18 11:42> Narrative: GENERAL: Elderly female sitting at edge of bed in NAD with nasal cannula in place. SKIN: Warm and dry. No rash or lesions. HEAD: Normocephalic. Atraumatic. MMM. Mouth with no ulcers, oropharynx clear without exudate. EYES: No scleral icterus. No injection or drainage. CARDIOVASCULAR: RRR without murmurs, gallops, or rubs. RESPIRATORY: No accessory muscle use. No cough today. CTAB. No wheezing, rhonchi, crackles. GASTROINTESTINAL: Abdomen soft, non-tender, nondistended. Positive bowel signs. MUSCULOSKELETAL: No cyanosis, or edema. <Bennie Hernandez III - 10/05/18 11:42> Assessment and Plan - Assessment (1) Dyspnea Code(s): R06.00 - Dyspnea, unspecified Status: Resolved (2) CHF (congestive heart failure) Code(s): I50.9 - Heart failure, unspecified Status: Chronic (3) Tachycardia Code(s): R00.0 - Tachycardia, unspecified Status: Acute (4) Hypertension Code(s): I10 - Essential (primary) hypertension Status: Chronic (5) Diabetes Code(s): E11.9 - Type 2 diabetes mellitus without complications Status: Chronic <RicardoChavez - 10/06/18 15:45> (1) Dyspnea Code(s): R06.00 - Dyspnea, unspecified Status: Resolved (2) CHF (congestive heart failure) Code(s): I50.9 - Heart failure, unspecified Status: Chronic (3) Tachycardia Code(s): R00.0 - Tachycardia, unspecified Status: Acute (4) Hypertension Code(s): I10 - Essential (primary) hypertension Status: Chronic (5) Diabetes Code(s): E11.9 - Type 2 diabetes mellitus without complications Status: Chronic <Bennie Hernandez III - 10/05/18 11:32> - Assessment and Plan 83 YO female with PMHx CHF, DM type 2, asthma, Atrial fibrillation, [place] s/p 2 stents, hypothyroidism, with no appreciable improvement since treatment in mid- August who returns to the ED with her daughter with dyspnea, chest pain, and subjective fever to 99.8 degrees and found to have BNP 694 and CXR with worsening bibasilar densities greater in RLL and probable small bilateral pleural effusions and no appreciable WBC, however, pt started Azithromycin on . Pt Cr 1.17, but BL appears to be higher in the 1.2-1.3 range over the past year. Pt likely has CHF exacerbation with worsening PNA. 1. CHF exacerbation -Daily weights -Strict I/Os with fluid restriction to 1L daily -Lasix 40 mg IV BID -BNP trending downward, pt states she can breath better -Sodium restriction to 2g daily -Tele 2. Asthma -Albuterol nebs q6h while awake -Continue home Symbicort 2 puff INH BID -Hold home Brovana INH BID 3. Dyspnea - resolved -Supplemental O2 and titrate -Continuous pulse Ox 4. Pneumonia - stable -Discontinue azithromycin 250 mg BID -Start aztreonam renally dosed at 1 g every 8 hours and vancomycin (pharmacy to renally dose) -CXR PA&Lat 10/03 showed no interval improvement -Repeat chest x-ray 10/05 with results as above--slight reduction in right pleural effusion -White blood cell 12.3 today -Will work with pharmacy to devise suitable outpatient abx regimen 5. Afib - with rate to 110 -Last ECHO 09/06/17 with LV wnl and EF 60-65%, mild concentric LVH, mild MV regurg, moderate TV regurg, [id number] pulm HTN (60-70 mmHg), mild PV regurg -Increase home Metoprolol tartrate from 50 mg TID -Continue home Diltiazem 180 mg BID -Tele 6. Chest pain - likely 2/2 CHF and pleural effusions, resolved with Nitrostat SL x1 - resolved -Troponins x2 <0.02 -Nitrostat SL 0.4 mg SL q5m PRN 7. HTN - stable in 140s/70s-80s -Metoprolol as above 8. Diabetes - improving control today due to no steroids in several days; 6 units SSI overnight with blood glucose in 200s -Hold home Tresiba 20 units daily -Accuchecks -Moderate SSI 9. Hypothyroidism -Continue home levothyroxine 125 mcg daily 10. Anemia - stable with Hgb >9 -FeSO4 325 mg daily -CBC to follow 11. Renal insufficiency -Cr improving from 1.62 on 10/03 to 1.11 this morning 12. FEN/GI/PPx Fluids: fluid restriction to 1L daily; PO fluids Electrolytes: will follow with BMP Nutrition: Cardiac diet with sodium restriction to 2g daily GI: Continue home Pepcid 10 mg daily PPx: Continue pt's home Eliquis 2.5 mg BID Tylenol 650 mg PO PRN Dispo: likely 10/06 -Pt to follow up with Dr Day as outpt -Will put in order for HHF2F Pt SDW Mayela Silva and Rosy <Bennie Hernandez III - 10/05/18 11:42> - Attending Attestation See the residents documentation for details. I saw and evaluated the patient regarding the long portions of this evaluation and agree with the residents findings and plans as written. Parts of this note were created using [employer] voice recognition software program. While efforts were made to correct any mistakes made by this software, some mistakes, errors, and omissions may remain in the final note that were not caught when the note was originally created. Plan of care was discussed and agreed upon with the patient as specifically documented in the above note. An opportunity to ask questions with explanation was provided. Patient voiced understanding on all information reviewed and discussed. <Chavez Silva - 10/06/18 15:45> <Bennie Hernandez III - Last Filed: 10/05/18 11:32> (4) Hypertension Qualifiers: Hypertension type: essential hypertension Qualified Code(s): I10 - Essential (primary) hypertension (5) Diabetes Qualifiers: Diabetes mellitus type: type 2 Diabetes mellitus nursing home insulin use: with sea captain use Diabetes mellitus complication status: with kidney complications Diabetes mellitus complication detail: with chronic kidney disease Chronic kidney disease stage: stage 3 (moderate) Qualified Code(s): E11.22 - Type 2 diabetes mellitus with diabetic chronic kidney disease; N18.3 - Chronic kidney disease, stage 3 (moderate); Z79.4 - correction (current) use of insulin <Chavez Silva - Last Filed: 10/06/18 15:45> (2) CHF (congestive heart failure) Qualifiers: (4) Hypertension Qualifiers: Hypertension type: essential hypertension Qualified Code(s): I10 - Essential (primary) hypertension (5) Diabetes Qualifiers: Diabetes mellitus type: type 2 Diabetes mellitus nursing home insulin use: with sea captain use Diabetes mellitus complication status: with kidney complications Diabetes mellitus complication detail: with chronic kidney disease Chronic kidney disease stage: stage 3 (moderate) Qualified Code(s): E11.22 - Type 2 diabetes mellitus with diabetic chronic kidney disease; N18.3 - Chronic kidney disease, stage 3 (moderate); Z79.4 - correction (current) use of insulin <Bennie Hernandez III - Last Filed: 10/05/18 11:32> (4) Hypertension Qualifiers: Hypertension type: essential hypertension Qualified Code(s): I10 - Essential (primary) hypertension (5) Diabetes Qualifiers: Diabetes mellitus type: type 2 Diabetes mellitus nursing home insulin use: with nursing home use Diabetes mellitus complication status: with kidney complications Diabetes mellitus complication detail: with chronic kidney disease Chronic kidney disease stage: stage 3 (moderate) Qualified Code(s): E11.22 - Type 2 diabetes mellitus with diabetic chronic kidney disease; N18.3 - Chronic kidney disease, stage 3 (moderate); Z79.4 - sales office coordinator (current) use of insulin <Chavez Silva - Last Filed: 10/06/18 15:45> (2) CHF (congestive heart failure) Qualifiers: (4) Hypertension Qualifiers: Hypertension type: essential hypertension Qualified Code(s): I10 - Essential (primary) hypertension (5) Diabetes Qualifiers: Diabetes mellitus type: type 2 Diabetes mellitus sea captain insulin use: with sea captain use Diabetes mellitus complication status: with kidney complications Diabetes mellitus complication detail: with chronic kidney disease Chronic kidney disease stage: stage 3 (moderate) Qualified Code(s): E11.22 - Type 2 diabetes mellitus with diabetic chronic kidney disease; N18.3 - Chronic kidney disease, stage 3 (moderate); Z79.4 - correction (current) use of insulin
[2018-10-05 12:10] LABS: Baso % (Auto) 0.1 % (0.0-2.0); Eos % (Auto) 0.2 % (0.0-4.0); Hematocrit 27.6 % (35.0-46.0); Hemoglobin 9.6 gm/dL (11.6-15.3); Lymph # (Auto) 0.6 th/mm3 (1.0-4.8); Lymph % (Auto) 6.6 % (9.0-44.0); Mean Corpuscular HGB Conc 34.6 % (32.0-36.0); Mean Corpuscular Hemoglobin 30.5 pg (27.0-34.0); Mean Corpuscular Volume 88.2 fL (80.0-100.0); Mono # (Auto) 1.2 th/mm3 (0.0-0.9); Mono % (Auto) 12.3 % (0.0-8.0); Neut # (Auto) 7.8 th/mm3 (1.8-7.7); Neut % (Auto) 80.8 % (16.0-70.0); Platelet Count 112 th/mm3 (150-450); Red Blood Count 3.13 mil/mm3 (4.00-5.30); Red Cell Distribution Width 15.1 % (11.6-17.2); White Blood Count 9.6 th/mm3 (4.0-11.0)
[2018-10-05 12:47] LABS: Calcium 8.3 mg/dL (8.5-10.1); Carbon Dioxide 30.7 meq/L (21.0-32.0)
[2018-10-05 12:50] LABS: Potassium 2.9 meq/L (3.5-5.1)
[2018-10-05] MEDS: Vancomycin Inj 1,000 MG in Sodium Chlor 0.9% Inj 250 ML IV.SIG SCH (15:30)
--- NOTE | 2018-10-05 15:50 | P.DCO ---
- Home Health Nursing Order: Medical education, Signs/symptoms of disease process, Diabetic education , CHF education, Oxygen administration education, Medication education-adverse effect, Nursing assessment with vital signs - Home Health Aide Order: To assist in: Bathing and personal care, fence rider and meal prep - Case Management Consult Yes - Certification Limited mobility due to disease progression, Patient has SOB, Deconditioned with increased weakness, Medication compliance is questionable, Limited ability to care for self, Need for psychosocial assistance, High risk of falls, Infection with risk of complications Unable to use public transportation
[2018-10-05 21:33] LABS: Carbon Dioxide 33.6 meq/L (21.0-32.0)
[2018-10-06] MEDS: Sucralfate 1 GM Tablet PO SCH ×4 (02:01→21:37)
[2018-10-06 05:12] LABS: Baso % (Auto) 0.1 % (0.0-2.0); Eos # (Auto) 0.1 th/mm3 (0.0-0.4); Eos % (Auto) 1.8 % (0.0-4.0); Hemoglobin 9.5 gm/dL (11.6-15.3); Lymph % (Auto) 13.1 % (9.0-44.0); Mean Corpuscular HGB Conc 35.1 % (32.0-36.0); Mean Corpuscular Hemoglobin 30.2 pg (27.0-34.0); Mean Corpuscular Volume 86.2 fL (80.0-100.0); Mean Platelet Volume 8.6 fL (7.0-11.0); Mono % (Auto) 12.4 % (0.0-8.0); Neut # (Auto) 5.6 th/mm3 (1.8-7.7); Neut % (Auto) 72.6 % (16.0-70.0); Platelet Count 107 th/mm3 (150-450); Red Blood Count 3.14 mil/mm3 (4.00-5.30); Red Cell Distribution Width 15.1 % (11.6-17.2); White Blood Count 7.7 th/mm3 (4.0-11.0)
[2018-10-06] MEDS: Levothyroxine 125 MCG Tablet PO SCH (05:27)
[2018-10-06 05:41] LABS: Calcium 8.3 mg/dL (8.5-10.1); Carbon Dioxide 31.8 meq/L (21.0-32.0); Potassium 3.7 meq/L (3.5-5.1)
[2018-10-06] MEDS: dilTIAZem CD 180 MG Capsule PO SCH ×2 (10:16→21:37)
[2018-10-06] MEDS: Metoprolol Tartrate 50 MG Tablet PO SCH ×3 (10:16→17:33)
[2018-10-06] MEDS: Famotidine 20 MG Tablet PO SCH ×2 (10:16→21:37)
[2018-10-06] MEDS: Ferrous Sulfate 325 MG Tablet PO SCH (10:16)
[2018-10-06] MEDS: Insulin NovoLOG Aspart Correctional Sugar Inj SQ SCH ×4 (10:16→21:37)
[2018-10-06] MEDS: Senna/Docusate Sodium 8.6/50 MG Tablet PO SCH ×2 (10:16→21:37)
[2018-10-06] MEDS: Sodium Chloride 0.9% 2 ML Flush BID IV.FLUSH SCH ×2 (10:17→21:38)
--- NOTE | 2018-10-06 10:22 | P.PNFP ---
Subjective Interval history: Patient seen and examined at bedside this morning. Stratus was used for translation. Patient reports that she is feeling well this morning. She denies chest pain, shortness of breath, abdominal pain, nausea, vomiting, diarrhea, fever, chills. She wants to go home so that she can go [facility]. It was explained to the patient that we are awaiting approval for a p.o. medication to treat her pneumonia as an outpatient but that she may have to remain hospitalized to receive IV antibiotics due to her extensive allergy list. Patient voiced understanding. Patient's daughter Lyn was notified of the plan. I also asked the patient's daughter if she could send the patient' s baker chef to visit her in the hospital especially if the patient will need to stay a few more days. She voiced understanding. Her questions were answered to the best of my ability <Yohana Gallegos - 10/06/18 11:03> Results - Labs Result diagrams: 10/06/18 04:54 10/06/18 04:54 <Chavez Silva - 10/06/18 16:02> Abnormal lab results 10/05/18 10/05/18 10/06/18 Range/Units 17:15 20:28 04:54 RBC 3.14 L (4.00-5.30) mil/mm3 Hgb 9.5 L (11.6-15.3) gm/dL Hct 27.0 L (35.0-46.0) % Plt Count 107 L (150-450) th/mm3 Neut % (Auto) 72.6 H (16.0-70.0) % [place] % (Auto) 12.4 H (0.0-8.0) % [place] # (Auto) 1.0 H (0.0-0.9) th/mm3 Potassium 3.0 L (3.5-5.1) meq/L Carbon Dioxide 33.6 H (21.0-32.0) meq/L BUN 30 H (7-18) mg/dL Creatinine 1.23 H (0.50-1.00) mg/dL Estimated GFR 41 L (>89) mL/min POC Glucose 283 H (68-110) mg/dl Random Glucose (74-106) mg/dL Calcium 8.0 L (8.5-10.1) mg/dL B-Natriuretic Peptide (0-100) pg/mL 10/06/18 10/06/18 10/06/18 Range/Units 04:54 04:54 09:17 RBC (4.00-5.30) mil/mm3 Hgb (11.6-15.3) gm/dL Hct (35.0-46.0) % Plt Count (150-450) th/mm3 Neut % (Auto) (16.0-70.0) % [place] % (Auto) (0.0-8.0) % [place] # (Auto) (0.0-0.9) th/mm3 Potassium (3.5-5.1) meq/L Carbon Dioxide (21.0-32.0) meq/L BUN 29 H (7-18) mg/dL Creatinine 1.15 H (0.50-1.00) mg/dL Estimated GFR 45 L (>89) mL/min POC Glucose 222 H (68-110) mg/dl Random Glucose 200 H D (74-106) mg/dL Calcium 8.3 L (8.5-10.1) mg/dL B-Natriuretic Peptide 409 H (0-100) pg/mL 10/06/18 Range/Units 13:23 RBC (4.00-5.30) mil/mm3 Hgb (11.6-15.3) gm/dL Hct (35.0-46.0) % Plt Count (150-450) th/mm3 Neut % (Auto) (16.0-70.0) % [place] % (Auto) (0.0-8.0) % [place] # (Auto) (0.0-0.9) th/mm3 Potassium (3.5-5.1) meq/L Carbon Dioxide (21.0-32.0) meq/L BUN (7-18) mg/dL Creatinine (0.50-1.00) mg/dL Estimated GFR (>89) mL/min POC Glucose 228 H (68-110) mg/dl Random Glucose (74-106) mg/dL Calcium (8.5-10.1) mg/dL B-Natriuretic Peptide (0-100) pg/mL Short CBC 10/06/18 Range/Units 04:54 WBC 7.7 (4.0-11.0) th/mm3 Hgb 9.5 L (11.6-15.3) gm/dL Hct 27.0 L (35.0-46.0) % Plt Count 107 L (150-450) th/mm3 BMP 10/05/18 10/06/18 20:28 04:54 Sodium 140 139 Potassium 3.0 L 3.7 Chloride 99 101 Carbon Dioxide 33.6 H 31.8 BUN 30 H 29 H Creatinine 1.23 H 1.15 H Calcium 8.0 L 8.3 L <Chavez Silva - 10/06/18 16:02> Abnormal lab results 10/05/18 10/05/18 10/05/18 Range/Units 11:35 11:35 12:18 RBC 3.13 L (4.00-5.30) mil/mm3 Hgb 9.6 L (11.6-15.3) gm/dL Hct 27.6 L (35.0-46.0) % Plt Count 112 L (150-450) th/mm3 Neut % (Auto) 80.8 H (16.0-70.0) % Lymph % (Auto) 6.6 L (9.0-44.0) % [place] % (Auto) 12.3 H (0.0-8.0) % Neut # (Auto) 7.8 H (1.8-7.7) th/mm3 Lymph # (Auto) 0.6 L (1.0-4.8) th/mm3 [place] # (Auto) 1.2 H (0.0-0.9) th/mm3 Potassium 2.9 L* (3.5-5.1) meq/L Chloride 96 L (98-107) meq/L Carbon Dioxide (21.0-32.0) meq/L BUN 31 H (7-18) mg/dL Creatinine 1.25 H (0.50-1.00) mg/dL Estimated GFR 41 L (>89) mL/min POC Glucose 376 H (68-110) mg/dl Random Glucose 325 H D (74-106) mg/dL Calcium 8.3 L (8.5-10.1) mg/dL B-Natriuretic Peptide (0-100) pg/mL 10/05/18 10/05/18 10/06/18 Range/Units 17:15 20:28 04:54 RBC 3.14 L (4.00-5.30) mil/mm3 Hgb 9.5 L (11.6-15.3) gm/dL Hct 27.0 L (35.0-46.0) % Plt Count 107 L (150-450) th/mm3 Neut % (Auto) 72.6 H (16.0-70.0) % Lymph % (Auto) (9.0-44.0) % [place] % (Auto) 12.4 H (0.0-8.0) % Neut # (Auto) (1.8-7.7) th/mm3 Lymph # (Auto) (1.0-4.8) th/mm3 [place] # (Auto) 1.0 H (0.0-0.9) th/mm3 Potassium 3.0 L (3.5-5.1) meq/L Chloride (98-107) meq/L Carbon Dioxide 33.6 H (21.0-32.0) meq/L BUN 30 H (7-18) mg/dL Creatinine 1.23 H (0.50-1.00) mg/dL Estimated GFR 41 L (>89) mL/min POC Glucose 283 H (68-110) mg/dl Random Glucose (74-106) mg/dL Calcium 8.0 L (8.5-10.1) mg/dL B-Natriuretic Peptide (0-100) pg/mL 10/06/18 10/06/18 10/06/18 Range/Units 04:54 04:54 09:17 RBC (4.00-5.30) mil/mm3 Hgb (11.6-15.3) gm/dL Hct (35.0-46.0) % Plt Count (150-450) th/mm3 Neut % (Auto) (16.0-70.0) % Lymph % (Auto) (9.0-44.0) % [place] % (Auto) (0.0-8.0) % Neut # (Auto) (1.8-7.7) th/mm3 Lymph # (Auto) (1.0-4.8) th/mm3 [place] # (Auto) (0.0-0.9) th/mm3 Potassium (3.5-5.1) meq/L Chloride (98-107) meq/L Carbon Dioxide (21.0-32.0) meq/L BUN 29 H (7-18) mg/dL Creatinine 1.15 H (0.50-1.00) mg/dL Estimated GFR 45 L (>89) mL/min POC Glucose 222 H (68-110) mg/dl Random Glucose 200 H D (74-106) mg/dL Calcium 8.3 L (8.5-10.1) mg/dL B-Natriuretic Peptide 409 H (0-100) pg/mL Short CBC 10/05/18 10/06/18 Range/Units 11:35 04:54 WBC 9.6 7.7 (4.0-11.0) th/mm3 Hgb 9.6 L 9.5 L (11.6-15.3) gm/dL Hct 27.6 L 27.0 L (35.0-46.0) % Plt Count 112 L 107 L (150-450) th/mm3 BMP 10/05/18 10/05/18 10/06/18 11:35 20:28 04:54 Sodium 136 140 139 Potassium 2.9 L* 3.0 L 3.7 Chloride 96 L 99 101 Carbon Dioxide 30.7 33.6 H 31.8 BUN 31 H 30 H 29 H Creatinine 1.25 H 1.23 H 1.15 H Calcium 8.3 L 8.0 L 8.3 L <Yohana Gallegos - 10/06/18 10:22> Physical Exam Vital signs: Vital Signs 10/05/18 16:35 10/05/18 19:48 10/05/18 20:01 Temperature 98.4 F 98.2 F Pulse Rate 79 83 79 Respiratory Rate 16 18 18 Blood Pressure 125/99 H 139/70 Pulse Oximetry 99 98 99 10/06/18 00:00 10/06/18 03:55 10/06/18 08:00 Temperature 98.5 F 98.0 F 98.1 F Pulse Rate 88 81 90 Respiratory Rate 18 18 20 Blood Pressure 135/71 132/70 152/76 H Pulse Oximetry 98 96 98 10/06/18 08:34 10/06/18 12:00 Temperature 98.0 F Pulse Rate 90 89 Respiratory Rate 19 18 Blood Pressure 142/83 H Pulse Oximetry 98 97 Intake & Output 10/05/18 10/06/18 10/06/18 18:59 06:59 18:59 Intake Total 350 / 350 200 / 200 Balance 350 / 350 200 / 200 Weight 52 kg Intake: IV 350 / 350 200 / 200 Azactam Inj 1,000 MG In NS Inj 100 / 100 200 / 200 100 ML @ 200 mls/hr IV.SIG Q8H SHAKIRA Rx#:[id number] Vancomycin Inj 1,000 MG In NS 250 / 250 Inj 250 ML @ 250 mls/hr IV.SIG Q24H SHAKIRA Rx#:[id number] Other: # Voids 1 <Chavez Silva - 10/06/18 16:02> Vital Signs 10/05/18 11:52 10/05/18 16:35 10/05/18 19:48 Temperature 98.8 F 98.4 F 98.2 F Pulse Rate 101 H 79 83 Respiratory Rate 17 16 18 Blood Pressure 141/73 H 125/99 H 139/70 Pulse Oximetry 98 99 98 10/05/18 20:01 10/06/18 00:00 10/06/18 03:55 Temperature 98.5 F 98.0 F Pulse Rate 79 88 81 Respiratory Rate 18 18 18 Blood Pressure 135/71 132/70 Pulse Oximetry 99 98 96 10/06/18 08:00 10/06/18 08:34 Temperature 98.1 F Pulse Rate 91 H 90 Respiratory Rate 20 19 Blood Pressure 152/76 H Pulse Oximetry 98 98 Intake & Output 10/05/18 10/06/18 10/06/18 18:59 06:59 18:59 Intake Total 350 / 350 200 / 200 Balance 350 / 350 200 / 200 Weight 52 kg Intake: IV 350 / 350 200 / 200 Azactam Inj 1,000 MG In NS Inj 100 / 100 200 / 200 100 ML @ 200 mls/hr IV.SIG Q8H SHAKIRA Rx#:[id number] Vancomycin Inj 1,000 MG In NS 250 / 250 Inj 250 ML @ 250 mls/hr IV.SIG Q24H SHAKIRA Rx#:[id number] Other: # Voids 1 <Yohana Gallegos - 10/06/18 10:22> Narrative: GENERAL: NAD SKIN: Warm and dry. No rash or lesions. HEAD: Normocephalic. Atraumatic. MMM. Mouth with no ulcers, oropharynx clear without exudate. EYES: No scleral icterus. No injection or drainage. CARDIOVASCULAR: RRR without murmurs, gallops, or rubs. RESPIRATORY: No accessory muscle use. No cough today. CTAB. No wheezing, rhonchi, crackles. GASTROINTESTINAL: Abdomen soft, non-tender, nondistended. Positive bowel signs. MUSCULOSKELETAL: No cyanosis, or edema. <Yohana Gallegos - 10/06/18 11:03> Assessment and Plan - Assessment (1) Dyspnea Code(s): R06.00 - Dyspnea, unspecified Status: Resolved (2) CHF (congestive heart failure) Code(s): I50.9 - Heart failure, unspecified Status: Chronic (3) Tachycardia Code(s): R00.0 - Tachycardia, unspecified Status: Acute (4) Hypertension Code(s): I10 - Essential (primary) hypertension Status: Chronic (5) Diabetes Code(s): E11.9 - Type 2 diabetes mellitus without complications Status: Chronic <SilvaChavez - 10/06/18 16:02> (1) Dyspnea Code(s): R06.00 - Dyspnea, unspecified Status: Resolved (2) CHF (congestive heart failure) Code(s): I50.9 - Heart failure, unspecified Status: Chronic (3) Tachycardia Code(s): R00.0 - Tachycardia, unspecified Status: Acute (4) Hypertension Code(s): I10 - Essential (primary) hypertension Status: Chronic (5) Diabetes Code(s): E11.9 - Type 2 diabetes mellitus without complications Status: Chronic <Yohana Gallegos - 10/06/18 12:35> - Assessment and Plan 83 YO female with PMHx CHF, DM type 2, asthma, Atrial fibrillation, DC s/p 2 stents, hypothyroidism, with no appreciable improvement since treatment in mid- August who returns to the ED with her daughter with dyspnea, chest pain, and subjective fever to 99.8 degrees and found to have BNP 694 and CXR with worsening bibasilar densities greater in RLL and probable small bilateral pleural effusions and no appreciable WBC, however, pt started Azithromycin on . Pt Cr 1.17, but BL appears to be higher in the 1.2-1.3 range over the past year. Pt likely has CHF exacerbation with worsening PNA. 1. CHF exacerbation -Daily weights -Strict I/Os with fluid restriction to 1L daily -Lasix 40 mg IV BID -BNP trending downward, pt states she can breath better. BNP 409 today -Sodium restriction to 2g daily -Tele 2. Asthma -Albuterol nebs q6h while awake -Continue home Symbicort 2 puff INH BID -Hold home Brovana INH BID 3. Dyspnea - resolved -Supplemental O2 and titrate -Continuous pulse Ox 4. Pneumonia - stable -Discontinue azithromycin 250 mg BID -Start aztreonam renally dosed at 1 g every 8 hours and vancomycin (pharmacy to renally dose) -CXR PA&Lat 10/03 showed no interval improvement -Repeat chest x-ray 10/05 with results as above--slight reduction in right pleural effusion -CXR 10/06 PENDING -White blood cell 7.7 today -Will work with pharmacy to devise suitable outpatient abx regimen. Pharmacy recommended linezolid 600 mg twice daily p.o. regimen. This medication is very expensive so it is unsure if the medication is covered by insurance. Case management was consulted. 5. Afib - with rate to 110 -Last ECHO 09/06/17 with LV wnl and EF 60-65%, mild concentric LVH, mild MV regurg, moderate TV regurg, [id number] pulm HTN (60-70 mmHg), mild PV regurg -Continue metoprolol tartrate from 50 mg TID -Continue home Diltiazem 180 mg BID -Tele 6. Chest pain - likely 2/2 CHF and pleural effusions, resolved with Nitrostat SL x1 - resolved -Troponins x2 <0.02 -Nitrostat SL 0.4 mg SL q5m PRN 7. HTN - stable in 140s/70s-80s -Metoprolol as above 8. Diabetes - improving control today due to no steroids in several days; 3 units SSI today with blood glucose in 200s -Hold home Tresiba 20 units daily -Accuchecks -Moderate SSI 9. Hypothyroidism -Continue home levothyroxine 125 mcg daily 10. Anemia - stable with Hgb >9 -FeSO4 325 mg daily -CBC to follow 11. Renal insufficiency -Cr improving from 1.62 on 10/03 to 1.15 this morning 12. FEN/GI/PPx Fluids: fluid restriction to 1L daily; PO fluids Electrolytes: will follow with BMP Nutrition: Cardiac diet with sodium restriction to 2g daily GI: Continue home Pepcid 10 mg daily PPx: Continue pt's home Eliquis 2.5 mg BID Tylenol 650 mg PO PRN Dispo: likely 10/06 -If linezolid is covered by insurance patient may be discharged this afternoon or tomorrow morning. If the medication is not covered by her insurance she will need to remain inpatient for a few more days of IV antibiotics. -Pt to follow up with Dr Day as outpt -[id number] completed -Wheeled walker ordered Pt SDW Mayela Silva and Rosy <Yohana Gallegos - 10/06/18 12:41> - Attending Attestation See the residents documentation for details. I saw and evaluated the patient regarding the long portions of this evaluation and agree with the residents findings and plans as written. Parts of this note were created using [employer] voice recognition software program. While efforts were made to correct any mistakes made by this software, some mistakes, errors, and omissions may remain in the final note that were not caught when the note was originally created. Plan of care was discussed and agreed upon with the patient as specifically documented in the above note. An opportunity to ask questions with explanation was provided. Patient voiced understanding on all information reviewed and discussed. <Chavez Silva - 10/06/18 16:02> <Yohana Gallegos - Last Filed: 10/06/18 12:35> (4) Hypertension Qualifiers: Hypertension type: essential hypertension Qualified Code(s): I10 - Essential (primary) hypertension (5) Diabetes Qualifiers: Diabetes mellitus type: type 2 Diabetes mellitus chcf insulin use: with superintendent [employer] use Diabetes mellitus complication status: with kidney complications Diabetes mellitus complication detail: with chronic kidney disease Chronic kidney disease stage: stage 3 (moderate) Qualified Code(s): E11.22 - Type 2 diabetes mellitus with diabetic chronic kidney disease; N18.3 - Chronic kidney disease, stage 3 (moderate); Z79.4 - terminal gauger (current) use of insulin <Chavez Silva - Last Filed: 10/06/18 16:02> (2) CHF (congestive heart failure) Qualifiers: (4) Hypertension Qualifiers: Hypertension type: essential hypertension Qualified Code(s): I10 - Essential (primary) hypertension (5) Diabetes Qualifiers: Diabetes mellitus type: type 2 Diabetes mellitus chcf insulin use: with superintendent [employer] use Diabetes mellitus complication status: with kidney complications Diabetes mellitus complication detail: with chronic kidney disease Chronic kidney disease stage: stage 3 (moderate) Qualified Code(s): E11.22 - Type 2 diabetes mellitus with diabetic chronic kidney disease; N18.3 - Chronic kidney disease, stage 3 (moderate); Z79.4 - long-term (current) use of insulin <Yohana Gallegos - Last Filed: 10/06/18 12:35> (4) Hypertension Qualifiers: Hypertension type: essential hypertension Qualified Code(s): I10 - Essential (primary) hypertension (5) Diabetes Qualifiers: Diabetes mellitus type: type 2 Diabetes mellitus chcf insulin use: with chcf use Diabetes mellitus complication status: with kidney complications Diabetes mellitus complication detail: with chronic kidney disease Chronic kidney disease stage: stage 3 (moderate) Qualified Code(s): E11.22 - Type 2 diabetes mellitus with diabetic chronic kidney disease; N18.3 - Chronic kidney disease, stage 3 (moderate); Z79.4 - terminal gauger (current) use of insulin <Chavez Silva - Last Filed: 10/06/18 16:02> (2) CHF (congestive heart failure) Qualifiers: (4) Hypertension Qualifiers: Hypertension type: essential hypertension Qualified Code(s): I10 - Essential (primary) hypertension (5) Diabetes Qualifiers: Diabetes mellitus type: type 2 Diabetes mellitus chcf insulin use: with chcf use Diabetes mellitus complication status: with kidney complications Diabetes mellitus complication detail: with chronic kidney disease Chronic kidney disease stage: stage 3 (moderate) Qualified Code(s): E11.22 - Type 2 diabetes mellitus with diabetic chronic kidney disease; N18.3 - Chronic kidney disease, stage 3 (moderate); Z79.4 - terminal gauger (current) use of insulin
[2018-10-06] MEDS: Budesonide-Formoterol 160/4.5 MCG 6 GM Inhaler INH SCH ×2 (10:27→21:38)
[2018-10-06] MEDS: Vancomycin Inj 1,000 MG in Sodium Chlor 0.9% Inj 250 ML IV.SIG SCH (13:18)
--- NOTE | 2018-10-06 20:39 | XR ---
EXAM DATE: 10/06/2018 8:35 PM EST AGE/SEX: 83 years / Female INDICATIONS: . Congestion. CLINICAL DATA: This is the patient's initial encounter. Patient reports that signs and symptoms have been present for 1 day and indicates a pain score of 0/10. MEDICAL/SURGICAL HISTORY: None. Pacemaker. [place] [facility] [place]. . FINDINGS: Slight cardiomegaly seen. Small right pleural effusion is present with a tiny left pleural effusion. Left subclavian pacer wires are present with tips in the right atrium and right ventricle. CONCLUSION: No significant change. Electronically signed by: Sandra Todd MD 10/06/2018 8:38 PM EST
[2018-10-06] MEDS: Linezolid 600 MG Tablet PO SCH (21:37)
[2018-10-07] MEDS: Sucralfate 1 GM Tablet PO SCH ×3 (03:25→13:35)
[2018-10-07] MEDS: Levothyroxine 125 MCG Tablet PO SCH (05:36)
--- NOTE | 2018-10-07 05:40 | XR ---
EXAM DATE: 10/07/2018 5:36 AM EST AGE/SEX: 83 years / Female INDICATIONS: . Evaluate for pneumonia. CLINICAL DATA: This is the patient's subsequent encounter. Patient reports that signs and symptoms h ave been present for 4 - 6 days and indicates a pain score of 0/10. MEDICAL/SURGICAL HISTORY: Congestive heart failure. Hepatitis C. Diabetes mellitus type II. A-fib. Coronary artery disease. Chronic kidney disease. COPD. Hypertension. Myocardial infarction. As thma. Pacemaker. Coronary artery stent. Chest tube, right. COMPARISON: [facility] – [place]ST 2V AP&LAT, 10/06/2018. . FINDINGS: AP and lateral views of the chest demonstrate a small right pleural effusion with worsening consolida tion of the right base. Left lung is clear. Heart is enlarged. Pulmonary vascular engorgement noted. Pacing device overlies the left chest. CONCLUSION: Worsening infiltrate within the right base with small right pleural effusion. Electronically signed by: Ezekiel Moore MD 10/07/2018 5:38 AM EST
[2018-10-07 05:54] LABS: Baso % (Auto) 0.1 % (0.0-2.0); Eos # (Auto) 0.1 th/mm3 (0.0-0.4); Eos % (Auto) 1.8 % (0.0-4.0); Hematocrit 27.7 % (35.0-46.0); Hemoglobin 9.5 gm/dL (11.6-15.3); Lymph # (Auto) 1.3 th/mm3 (1.0-4.8); Lymph % (Auto) 15.2 % (9.0-44.0); Mean Corpuscular HGB Conc 34.2 % (32.0-36.0); Mean Corpuscular Volume 87.7 fL (80.0-100.0); Mean Platelet Volume 9.1 fL (7.0-11.0); Mono # (Auto) 0.9 th/mm3 (0.0-0.9); Mono % (Auto) 10.3 % (0.0-8.0); Neut # (Auto) 6.1 th/mm3 (1.8-7.7); Neut % (Auto) 72.6 % (16.0-70.0); Platelet Count 119 th/mm3 (150-450); Red Blood Count 3.16 mil/mm3 (4.00-5.30); Red Cell Distribution Width 15.1 % (11.6-17.2); White Blood Count 8.4 th/mm3 (4.0-11.0)
[2018-10-07 06:12] LABS: Calcium 8.4 mg/dL (8.5-10.1); Carbon Dioxide 29.6 meq/L (21.0-32.0); Potassium 3.4 meq/L (3.5-5.1)
[2018-10-07] MEDS: dilTIAZem CD 180 MG Capsule PO SCH (09:04)
[2018-10-07] MEDS: Insulin NovoLOG Aspart Correctional Sugar Inj SQ SCH ×2 (09:04→13:35)
[2018-10-07] MEDS: Senna/Docusate Sodium 8.6/50 MG Tablet PO SCH (09:05)
[2018-10-07] MEDS: Famotidine 20 MG Tablet PO SCH (09:05)
[2018-10-07] MEDS: Sodium Chloride 0.9% 2 ML Flush BID IV.FLUSH SCH (09:05)
[2018-10-07] MEDS: Ferrous Sulfate 325 MG Tablet PO SCH (09:05)
[2018-10-07] MEDS: Budesonide-Formoterol 160/4.5 MCG 6 GM Inhaler INH SCH (09:06)
[2018-10-07] MEDS: Linezolid 600 MG Tablet PO SCH (09:06)
--- NOTE | 2018-10-07 11:06 | P.PNFP ---
Subjective Interval history: Patient seen and examined at bedside this morning. Her daughter was present during the examination and acted as a retread technician. The patient feels much better today. She is ready to go home. It was discussed with the patient and her daughter that her chest x-ray looked mildly worse than previous days but patient does not have dyspnea or any pain. Case management, Dhruv, was contacted yesterday afternoon regarding Linezolid insurance coverage and assured that it would be covered. The patient tolerated the first dose of the medication last night and again this morning. She was instructed that if she should have worsening shortness of breath or fevers she needed to return to the hospital. Daughter and patient voiced understanding. She reports a cough productive of white sputum. She denies chest pain, abdominal pain, lower extremity edema. <Yohana Gallegos - 10/07/18 11:19> Results - Labs Result diagrams: 10/07/18 05:12 10/07/18 05:12 <Chavez Silva - 10/09/18 11:45> Abnormal lab results 10/06/18 10/06/18 10/06/18 Range/Units 13:23 17:03 21:31 RBC (4.00-5.30) mil/mm3 Hgb (11.6-15.3) gm/dL Hct (35.0-46.0) % Plt Count (150-450) th/mm3 Neut % (Auto) (16.0-70.0) % [place] % (Auto) (0.0-8.0) % Potassium (3.5-5.1) meq/L BUN (7-18) mg/dL Creatinine (0.50-1.00) mg/dL Estimated GFR (>89) mL/min POC Glucose 228 H 232 H 267 H (68-110) mg/dl Random Glucose (74-106) mg/dL Calcium (8.5-10.1) mg/dL 10/07/18 10/07/18 10/07/18 Range/Units 05:12 05:12 08:06 RBC 3.16 L (4.00-5.30) mil/mm3 Hgb 9.5 L (11.6-15.3) gm/dL Hct 27.7 L (35.0-46.0) % Plt Count 119 L (150-450) th/mm3 Neut % (Auto) 72.6 H (16.0-70.0) % [place] % (Auto) 10.3 H (0.0-8.0) % Potassium 3.4 L (3.5-5.1) meq/L BUN 28 H (7-18) mg/dL Creatinine 1.23 H (0.50-1.00) mg/dL Estimated GFR 41 L (>89) mL/min POC Glucose 241 H (68-110) mg/dl Random Glucose 196 H (74-106) mg/dL Calcium 8.4 L (8.5-10.1) mg/dL Short CBC 10/07/18 Range/Units 05:12 WBC 8.4 (4.0-11.0) th/mm3 Hgb 9.5 L (11.6-15.3) gm/dL Hct 27.7 L (35.0-46.0) % Plt Count 119 L (150-450) th/mm3 BMP 10/07/18 05:12 Sodium 138 Potassium 3.4 L Chloride 101 Carbon Dioxide 29.6 BUN 28 H Creatinine 1.23 H Calcium 8.4 L <Yohana Gallegos - 10/07/18 11:06> - Imaging Impressions Chest X-Ray 10/06/18 00:00 CONCLUSION: No significant change. Chest X-Ray 10/07/18 06:00 CONCLUSION: Worsening infiltrate within the right base with small right pleural effusion. <Yohana Gallegos - 10/07/18 11:06> Physical Exam Vital signs: Vital Signs 10/06/18 12:00 10/06/18 16:00 10/06/18 17:28 Temperature 98.0 F 97.7 F 97.9 F Pulse Rate 89 82 86 Respiratory Rate 18 18 18 Blood Pressure 142/83 H 130/67 131/69 Pulse Oximetry 97 99 100 10/06/18 20:00 10/07/18 00:00 10/07/18 04:00 Temperature 98.4 F 98 F 98.5 F Pulse Rate 83 73 65 Respiratory Rate 20 20 16 Blood Pressure 128/59 L 123/67 159/82 H Pulse Oximetry 98 100 97 10/07/18 08:00 Temperature 98.2 F Pulse Rate 100 H Respiratory Rate 20 Blood Pressure 118/86 Pulse Oximetry 100 Intake & Output 10/06/18 10/07/18 10/07/18 18:59 06:59 18:59 Intake Total 830 / 830 Balance 830 / 830 Weight 51.5 kg 51.2 kg Intake: IV 350 / 350 Azactam Inj 1,000 MG In NS Inj 100 / 100 100 ML @ 200 mls/hr IV.SIG Q8H [facility] Rx#:[id number] Vancomycin Inj 1,000 MG In NS 250 / 250 Inj 250 ML @ 250 mls/hr IV.SIG Q24H [facility] Rx#:[id number] Oral 480 / 480 Other: # Voids 2 Date of Last Bowel Movement 10/06/18 10/06/18 <Yohana Gallegos - 10/07/18 11:06> Narrative: GENERAL: NAD SKIN: Warm and dry. No rash or lesions. HEAD: Normocephalic. Atraumatic. MMM. Mouth with no ulcers, oropharynx clear without exudate. EYES: No scleral icterus. No injection or drainage. CARDIOVASCULAR: Irregularly irregular rhythm, normal rate, without murmurs, gallops, or rubs. RESPIRATORY: No accessory muscle use. CTAB. No wheezing, rhonchi, crackles. GASTROINTESTINAL: Abdomen soft, non-tender, nondistended. MUSCULOSKELETAL: No cyanosis, or edema. <Yohana Gallegos - 10/07/18 11:19> Assessment and Plan - Assessment (1) Dyspnea Code(s): R06.00 - Dyspnea, unspecified Status: Resolved (2) CHF (congestive heart failure) Code(s): I50.9 - Heart failure, unspecified Status: Chronic (3) Tachycardia Code(s): R00.0 - Tachycardia, unspecified Status: Acute (4) Hypertension Code(s): I10 - Essential (primary) hypertension Status: Chronic (5) Diabetes Code(s): E11.9 - Type 2 diabetes mellitus without complications Status: Chronic <Chavez Silva - 10/09/18 11:45> (1) Dyspnea Code(s): R06.00 - Dyspnea, unspecified Status: Resolved (2) CHF (congestive heart failure) Code(s): I50.9 - Heart failure, unspecified Status: Chronic (3) Tachycardia Code(s): R00.0 - Tachycardia, unspecified Status: Acute (4) Hypertension Code(s): I10 - Essential (primary) hypertension Status: Chronic (5) Diabetes Code(s): E11.9 - Type 2 diabetes mellitus without complications Status: Chronic <Yohana Gallegos - 10/07/18 11:11> - Assessment and Plan 83 YO female with PMHx CHF, DM type 2, asthma, Atrial fibrillation, SD s/p 2 stents, hypothyroidism, with no appreciable improvement since treatment in mid- August who returns to the ED with her daughter with dyspnea, chest pain, and subjective fever to 99.8 degrees and found to have BNP 694 and CXR with worsening bibasilar densities greater in RLL and probable small bilateral pleural effusions and no appreciable WBC, however, pt started Azithromycin on . Pt Cr 1.17, but BL appears to be higher in the 1.2-1.3 range over the past year. Pt likely has CHF exacerbation with worsening PNA. 1. CHF exacerbation -Daily weights -Strict I/Os with fluid restriction to 1L daily -Lasix 40 mg IV BID -BNP trending downward, pt states she can breath better. BNP 409 today -Sodium restriction to 2g daily -Tele 2. Asthma -Albuterol nebs q6h while awake -Continue home Symbicort 2 puff INH BID -Hold home Brovana INH BID 3. Dyspnea - resolved -Supplemental O2 and titrate -Continuous pulse Ox 4. Pneumonia - stable -Discontinue azithromycin 250 mg BID -Discontinue aztreonam renally dosed at 1 g every 8 hours and vancomycin ( pharmacy to renally dose) -Continue Linezolid 600 mg every 12 hours -CXR PA&Lat 10/03 showed no interval improvement -Repeat chest x-ray 10/05 with results as above--slight reduction in right pleural effusion -CXR 10/07 worsening infiltrate in right lung base w/small right pleural effusion. Patient is clinically better. -White blood cell 8.4 today 5. Afib - with rate to 110 -Last ECHO 09/06/17 with LV wnl and EF 60-65%, mild concentric LVH, mild MV regurg, moderate TV regurg, [id number] pulm HTN (60-70 mmHg), mild PV regurg -Continue metoprolol tartrate from 50 mg TID -Continue home Diltiazem 180 mg BID -Tele 6. Chest pain - likely 2/2 CHF and pleural effusions, resolved with Nitrostat SL x1 - resolved -Troponins x2 <0.02 -Nitrostat SL 0.4 mg SL q5m PRN 7. HTN - stable in 140s/70s-80s -Metoprolol as above 8. Diabetes - improving control today due to no steroids in several days; 3 units SSI today with blood glucose in 200s -Hold home Tresiba 20 units daily -Accuchecks -Moderate SSI 9. Hypothyroidism -Continue home levothyroxine 125 mcg daily 10. Anemia - stable with Hgb >9 -FeSO4 325 mg daily -CBC to follow 11. Renal insufficiency -Cr stable at 1.23 12. FEN/GI/PPx Fluids: fluid restriction to 1L daily; PO fluids Electrolytes: will follow with BMP Nutrition: Cardiac diet with sodium restriction to 2g daily GI: Continue home Pepcid 10 mg daily PPx: Continue pt's home Eliquis 2.5 mg BID Tylenol 650 mg PO PRN Dispo: likely 10/06 -Pt to follow up with Dr Day as outpt -[id number] completed -Wheeled walker ordered Pt SDW Mayela Silva and Rosy <Yohana Gallegos - 10/07/18 11:19> - Attending Attestation See the residents documentation for details. I saw and evaluated the patient regarding the long portions of this evaluation and agree with the residents findings and plans as written. Parts of this note were created using [employer] voice recognition software program. While efforts were made to correct any mistakes made by this software, some mistakes, errors, and omissions may remain in the final note that were not caught when the note was originally created. Plan of care was discussed and agreed upon with the patient as specifically documented in the above note. An opportunity to ask questions with explanation was provided. Patient voiced understanding on all information reviewed and discussed. <Chavez Silva - 10/09/18 11:45> <Yohana Gallegos - Last Filed: 10/07/18 11:11> (4) Hypertension Qualifiers: Hypertension type: essential hypertension Qualified Code(s): I10 - Essential (primary) hypertension (5) Diabetes Qualifiers: Diabetes mellitus type: type 2 Diabetes mellitus intermediate frame tender insulin use: with mcc use Diabetes mellitus complication status: with kidney complications Diabetes mellitus complication detail: with chronic kidney disease Chronic kidney disease stage: stage 3 (moderate) Qualified Code(s): E11.22 - Type 2 diabetes mellitus with diabetic chronic kidney disease; N18.3 - Chronic kidney disease, stage 3 (moderate); Z79.4 - jail (current) use of insulin <Chavez Silva - Last Filed: 10/09/18 11:45> (2) CHF (congestive heart failure) Qualifiers: (4) Hypertension Qualifiers: Hypertension type: essential hypertension Qualified Code(s): I10 - Essential (primary) hypertension (5) Diabetes Qualifiers: Diabetes mellitus type: type 2 Diabetes mellitus mcc insulin use: with intermediate frame tender use Diabetes mellitus complication status: with kidney complications Diabetes mellitus complication detail: with chronic kidney disease Chronic kidney disease stage: stage 3 (moderate) Qualified Code(s): E11.22 - Type 2 diabetes mellitus with diabetic chronic kidney disease; N18.3 - Chronic kidney disease, stage 3 (moderate); Z79.4 - long term care administrator (current) use of insulin <Yohana Gallegos - Last Filed: 10/07/18 11:11> (4) Hypertension Qualifiers: Hypertension type: essential hypertension Qualified Code(s): I10 - Essential (primary) hypertension (5) Diabetes Qualifiers: Diabetes mellitus type: type 2 Diabetes mellitus mcc insulin use: with mcc use Diabetes mellitus complication status: with kidney complications Diabetes mellitus complication detail: with chronic kidney disease Chronic kidney disease stage: stage 3 (moderate) Qualified Code(s): E11.22 - Type 2 diabetes mellitus with diabetic chronic kidney disease; N18.3 - Chronic kidney disease, stage 3 (moderate); Z79.4 - long term care administrator (current) use of insulin <Chavez Silva - Last Filed: 10/09/18 11:45> (2) CHF (congestive heart failure) Qualifiers: (4) Hypertension Qualifiers: Hypertension type: essential hypertension Qualified Code(s): I10 - Essential (primary) hypertension (5) Diabetes Qualifiers: Diabetes mellitus type: type 2 Diabetes mellitus intermediate frame tender insulin use: with intermediate frame tender use Diabetes mellitus complication status: with kidney complications Diabetes mellitus complication detail: with chronic kidney disease Chronic kidney disease stage: stage 3 (moderate) Qualified Code(s): E11.22 - Type 2 diabetes mellitus with diabetic chronic kidney disease; N18.3 - Chronic kidney disease, stage 3 (moderate); Z79.4 - jail (current) use of insulin
--- NOTE | 2018-10-07 11:19 | P.DS ---
Date of admission: 10/02/18 11:54 Primary care physician: Claudia Richard Brief History from admission: Ms Ortiz is an 83 YO female followed by BELINDA Richard with PMHx CHF, DM, HTN, hypothyroidism, who was being treated for community acquired PNA with azithromycin in August, and appeared to clear the infection, but following the antibiotic started to get worse after her PT session on Tuesday. Pt was taken to see her PCP who started Azithromycin. She was brought to the ED by her daughter who reports her temperature Tuesday was 99.8 and Tuesday was 99.1. Both of these temperatures responded to Tylenol. Her weight has not changed. Her daughter weighs her daily at 110 lbs. Sxs today include SOB, fever, occasional productive cough with yellowish mucus, rhinorrhea, occasional sneezing, and whole body muscle aches. It is not known if she has sick contacts, although there are a lot of people coming into the home. Pt's son smokes but not int he home. Pt uses 2L via NC at home for the last 3 years. There is no N/V/D, no problems voiding or stooling. There is occasional constipation, but pt is taking oral iron for anemia. Pt is on Eliquis for afib, but has had recurrent BRBPR. Last incidence was last week when she appeared to bleed all week. There has been no BRBPR this week. There have been no palpitations but pt has been complaining it was difficult to walk as she felt out of breath. Dr Day is her course instructor. PMHx CHF Afib asthma 2 cardiac stents 10/01/09 following [place] 09/10/09 pacemaker 02/22/15 DM type 2 HTN liver cirrhosis Hep C likely 2/2 blood transfusions before 1978 hypothyroidism osteoporosis SurgHx: gallbladder removal 1974 stents FamHx: Mother - passed when pt was 1 yo; unknown Father - liver disease (no EtOH, however) SocHx: never smoker no EtOH no other drugs Lives with daughter in [place] DS: Diagnosis - Discharge Diagnosis (1) Dyspnea Status: Resolved (2) CHF (congestive heart failure) Status: Chronic (3) Tachycardia Status: Acute (4) Hypertension Status: Chronic (5) Diabetes Status: Chronic DS: Medications - Discharge Medications Prescriptions: linezolid [Zyvox] 600 mg PO Q12HR #12 tab metoprolol tartrate 50 mg PO TID #90 tab DS: Summary Hospital Course: Patient was admitted with a CHF exacerbation and found to have a worsening of pneumonia despite continued PO azithromycin. Patient was administered IV aztreonam and vancomycin. On day 4 of antibiotic treatment she was switched to Linezolid PO 600 mg every 12 hours. She was discharged with 6 more days of antibiotic therapy. In regards to her CHF exacerbation, she was administered Lasix 40 mg IV twice daily and tolerated this well. Her metoprolol was also increased from 50 mg twice daily to 50 mg 3 times daily. Upon discharge, patient had a chest x-ray that showed worsening infiltrate within the right lung base but clinically the patient was satting well, with no dyspnea and instructed to follow-up with her primary care provider early the following week and to keep her follow up appointment with her course instructor. She was also instructed on symptoms that would require her to come back to the hospital. - Time Spent with Patient Total time spent providing and/or coordinating discharge services: Greater than 30 minutes - Quality: VTE Deep Vein Thrombosis/Pulmonary Embolism Present on Admission: No Exam Vital signs: Vital Signs 10/06/18 12:00 10/06/18 16:00 10/06/18 17:28 Temperature 98.0 F 97.7 F 97.9 F Pulse Rate 89 82 86 Respiratory Rate 18 18 18 Blood Pressure 142/83 H 130/67 131/69 Pulse Oximetry 97 99 100 10/06/18 20:00 10/07/18 00:00 10/07/18 04:00 Temperature 98.4 F 98 F 98.5 F Pulse Rate 83 73 65 Respiratory Rate 20 20 16 Blood Pressure 128/59 L 123/67 159/82 H Pulse Oximetry 98 100 97 10/07/18 08:00 Temperature 98.2 F Pulse Rate 100 H Respiratory Rate 20 Blood Pressure 118/86 Pulse Oximetry 100 Intake & Output 10/06/18 10/07/18 10/07/18 18:59 06:59 18:59 Intake Total 830 / 830 Balance 830 / 830 Weight 51.5 kg 51.2 kg Intake: IV 350 / 350 Azactam Inj 1,000 MG In NS Inj 100 / 100 100 ML @ 200 mls/hr IV.SIG Q8H [facility] Rx#:[id number] Vancomycin Inj 1,000 MG In NS 250 / 250 Inj 250 ML @ 250 mls/hr IV.SIG Q24H [facility] Rx#:[id number] Oral 480 / 480 Other: # Voids 2 Date of Last Bowel Movement 10/06/18 10/06/18 Results Procedures completed during hospitalization: none Labs on day of discharge: Labs from last 24 hours 10/07/18 10/07/18 10/07/18 08:06 05:12 05:12 WBC 8.4 RBC 3.16 L Hgb 9.5 L Hct 27.7 L MCV 87.7 MCH 30.0 MCHC 34.2 RDW 15.1 Plt Count 119 L MPV 9.1 Neut % (Auto) 72.6 H Lymph % (Auto) 15.2 [place] % (Auto) 10.3 H Eos % (Auto) 1.8 Baso % (Auto) 0.1 Neut # (Auto) 6.1 Lymph # (Auto) 1.3 [place] # (Auto) 0.9 Eos # (Auto) 0.1 Baso # (Auto) 0.0 WBC Differential . Differential Comment Auto diff final Sodium 138 Potassium 3.4 L Chloride 101 Carbon Dioxide 29.6 Anion Gap 7 BUN 28 H Creatinine 1.23 H Estimated GFR 41 L POC Glucose 241 H Random Glucose 196 H Calcium 8.4 L 10/06/18 10/06/18 10/06/18 21:31 17:03 13:23 WBC RBC Hgb Hct MCV MCH MCHC RDW Plt Count MPV Neut % (Auto) Lymph % (Auto) [place] % (Auto) Eos % (Auto) Baso % (Auto) Neut # (Auto) Lymph # (Auto) [place] # (Auto) Eos # (Auto) Baso # (Auto) WBC Differential Differential Comment Sodium Potassium Chloride Carbon Dioxide Anion Gap BUN Creatinine Estimated GFR POC Glucose 267 H 232 H 228 H Random Glucose Calcium - Impressions ITS Impressions Chest X-Ray 10/07/18 06:00 CONCLUSION: Worsening infiltrate within the right base with small right pleural effusion. Discharge Plan - Discharge Disposition Patient Disposition: 01 Discharge Home - Discharge Condition Condition: Stable - Discharge Order Discharge Orders: Discharge Order (Routine); Ordered 10/07/18 Ordered By: Yohana Gallegos - Discharge Details Discharge Comment: Patient okay to discharge once has set up home health care. Thank you! - Physicians Team Primary Care Provider: Claudia Richard Attending Provider: Chavez Silva
[2018-10-07] MEDS: Metoprolol Tartrate 50 MG Tablet PO SCH ×2 (11:40→13:35)
[2018-10-07 12:04] VITALS: BP 145/74; PULSE 94; RESP 18; TEMP 97.8; O2SAT 97
[2018-10-07] MEDS ORDERED: Pharmacy Ordered Lab Info OTHER ONE (12:45)
[2018-10-07 13:33] LABS: Calcium 8.4 mg/dL (8.5-10.1)
[2018-10-07 13:39] LABS: Total Protein 8.1 g/dL (6.4-8.2); Vancomycin,Trough 14.7 mcg/mL (5.0-10.0)
== END 2018-10-07 14:48 | disposition home or self-care (01) ==
LOC: NEPE 08:54 → NEDA 11:54 → NEPHCDU 15:30 → N03 10-05 12:44 → N04 10-06 16:29
PROVIDERS: ADMIT Family Medicine; ATTEND Family Medicine

== ENCOUNTER 2018-10-21 09:45 | Inpatient (IN) ==
--- NOTE | 2018-10-21 10:25 | ED ---
HPI General Chief complaint: Chest Pain Stated complaint: respiratory Time Seen by Provider: 10/21/18 09:57 Source: patient Mode of arrival: wheelchair Limitations: no limitations History of Present Illness HPI narrative: Patient is an 83 year old female who comes in complaining of SOB. Patient has history of CHF and COPD, wears oxygen at home chronically. She was discharged from the hospital on 10/11 and daughter says she was doing well until 3 days ago she noticed she seemed to be more weak. She says that today she complained of shortness of breath. She has been compliant with all of her medications. Daughter says her temperature was 99.8 last night. She has complained of pain to her back and tightness in her chest. Severity is moderate. Related Data Home Medications Medication Instructions Recorded Confirmed apixaban [Eliquis] 2.5 mg PO BID 08/13/18 10/21/18 diltiazem HCl 180 mg PO TID 08/13/18 10/21/18 sitagliptin [Januvia] 50 mg PO DAILY 08/13/18 10/21/18 albuterol sulfate [ProAir HFA] 2 puff INHALATION Q4-6H PRN 09/06/18 10/21/18 arformoterol [Brovana] 1 puff INHALATION BID 09/06/18 10/21/18 budesonide-formoterol [Symbicort] 2 puff INHALATION BID 09/06/18 10/21/18 ferrous gluconate 270 mg PO DAILY 09/06/18 10/21/18 insulin aspart U-100 [Novolog 1 sliding scale dose SUBCUT UD PRN 09/06/18 PenFill U-100 Insulin] insulin degludec [Tresiba 20 unit SUBCUT DAILY 09/06/18 10/21/18 FlexTouch U-100] ipratropium-albuterol 3 ml INHALATION Q12HR 10/02/18 10/21/18 levothyroxine 125 mcg PO DAILY 10/02/18 10/21/18 digoxin [Lanoxin] 0.125 mg PO EVERY OTHER DAY 10/21/18 10/21/18 metoprolol succinate [Toprol XL] 25 mg PO Q12HR 10/21/18 10/21/18 ranitidine HCl [Zantac] 150 mg PO DAILY 10/21/18 10/21/18 sucralfate [Carafate] 1 g PO Q6H 10/21/18 10/21/18 Previous Rx's Medication Instructions Recorded bumetanide 1 mg PO BID #0 tab 10/24/18 Allergies Allergy/AdvReac Type Severity Reaction Status Date / Time penicillin G Allergy Severe Anaphylaxis Verified 10/02/18 10:13 Iodinated Contrast- Oral and AdvReac Severe Hives Verified 10/02/18 10:13 IV Dye levofloxacin AdvReac Severe Confusion Verified 10/02/18 10:13 Quinolones AdvReac Severe Confusion Verified 10/02/18 10:13 verapamil AdvReac Severe Nausea/Vomi Verified 10/02/18 10:13 ting Review of Systems ROS: all other systems reviewed are negative Constitutional Denies chills and Reports fever(s) ENT Denies dizziness Cardiovascular Reports edema and Reports dyspnea Respiratory Reports cough Gastrointestinal Denies nausea and Denies vomiting Musculoskeletal Denies myalgias and Denies arthralgias Integumentary/Breasts Denies sores and Denies wounds Neurologic Denies focal weakness and Denies numbness [facility] Medical History Medical History Afib (Acute) Asthma (Acute) CAD (coronary artery disease) (Acute) CHF (congestive heart failure) (Acute) CKD (chronic kidney disease) (Acute) COPD (chronic obstructive pulmonary disease) (Acute) Cirrhosis (Acute) Diabetes (Acute) HTN (hypertension) (Acute) Hepatitis C (Acute) Myocardial infarction (Acute) Pacemaker (Acute) Surgical History Surgical History History of cholecystectomy (Acute) History of heart artery stent (Acute) Family History Family History Other HTN (hypertension) Social History Social History Substance History: No History of Abuse Second Hand Smoke Exposure: No Smoking Status: Never smoker How Often Do You Have a Drink Containing Alcohol: Never Hx Recent Travel: No Recent Travel in [facility] within the Last 8 Weeks: No Recent Out of Country Travel within the Last 8 Weeks: No Immunization History Tetanus Immunization: Never Vaccinated Exam Narrative Exam Narrative: GENERAL: Awake and alert, in no acute distress. SKIN: Focused skin assessment warm/dry. No wounds or signs of infection. HEAD: Atraumatic. Normocephalic. EYES: Pupils equal and round. No scleral icterus. No injection or drainage. ENT: No nasal bleeding or discharge. Mucous membranes pink and moist. NECK: Trachea midline. No JVD. CARDIOVASCULAR: Regular rate and rhythm. No murmur appreciated. RESPIRATORY: No accessory muscle use. Decreased breath sounds on the right. GASTROINTESTINAL: Abdomen soft, non-tender, nondistended. Hepatic and splenic margins not palpable. MUSCULOSKELETAL: No obvious deformities. No clubbing. No cyanosis. 1+ pitting edema of the lower extremities. NEUROLOGICAL: Awake and alert. No obvious cranial nerve deficits. Motor grossly within normal limits. Normal speech. PSYCHIATRIC: Appropriate mood and affect; insight and judgment normal. Course Initial Documented Vital Signs Temperature 98.3 F 10/21/18 09:52 Pulse Rate 104 H 10/21/18 09:52 Respiratory Rate 26 H 10/21/18 09:52 Blood Pressure 168/76 H 10/21/18 09:52 Pulse Oximetry 92 L 10/21/18 09:52 Last Documented Vital Signs Temperature 97.1 F L 10/24/18 13:46 Pulse Rate 109 H 10/24/18 19:24 Respiratory Rate 18 10/24/18 19:24 Blood Pressure 131/63 10/24/18 13:46 Pulse Oximetry 99 10/24/18 19:24 Medical Decision Making [facility] Narrative Medical Screen Exam Complete: Yes Emergency Medical Condition: Yes Lab Data Result diagrams: 10/23/18 04:24 10/23/18 04:24 Lab Results 10/21/18 10/21/18 10/21/18 Range/Units 10:10 10:10 10:10 WBC 14.6 H (4.0-11.0) th/mm3 RBC 2.59 L (4.00-5.30) mil/mm3 Hgb 7.5 L (11.6-15.3) gm/dL Hct 22.5 L (35.0-46.0) % MCV 87.2 (80.0-100.0) fL MCH 29.0 (27.0-34.0) pg MCHC 33.2 (32.0-36.0) % RDW 14.6 (11.6-17.2) % Plt Count 81 L D (150-450) th/mm3 MPV 9.8 (7.0-11.0) fL Prelim Diff (Auto) Slide review pending Neut % (Auto) 69.8 (16.0-70.0) % Lymph % (Auto) 15.4 (9.0-44.0) % [place] % (Auto) 13.6 H (0.0-8.0) % Eos % (Auto) 0.8 (0.0-4.0) % Baso % (Auto) 0.4 (0.0-2.0) % Neut # (Auto) 10.2 H (1.8-7.7) th/mm3 Lymph # (Auto) 2.3 (1.0-4.8) th/mm3 [place] # (Auto) 2.0 H (0.0-0.9) th/mm3 Eos # (Auto) 0.1 (0.0-0.4) th/mm3 Baso # (Auto) 0.1 (0.0-0.2) th/mm3 WBC Differential Manual diff final Seg Neuts % (Manual) 61 (16-70) % Band Neuts % (Manual) 7 H (0-6) % Lymphocytes % (Manual) 18 (9-44) % Monocytes % (Manual) 1 (0-8) % Eosinophils % (Manual) 1 (0-4) % Basophils % (Manual) 2 (0-2) % Metamyelocytes % (Man) 7 H (0-1) % Myelocytes % (Man) 2 H (0-0) % Blast Cells % (Manual) 1 H (0-0) % Abs Neuts (Manual) 11.2 H (1.8-7.7) th/mm3 Nucleated RBCs/100 WBC 3 H (0-0) /100 WBC Differential Comment . Platelet Estimate Low L (Normal) Platelet Morphology Normal (Normal) Polychromasia (0.0-1.9) % Ovalocytes 1+ H (None) PT 13.3 H (9.8-11.6) sec INR 1.3 Ratio APTT 24.2 (23.4-31.7) sec Sodium 138 (136-145) meq/L Potassium 3.4 L (3.5-5.1) meq/L Chloride 100 (98-107) meq/L Carbon Dioxide 27.7 (21.0-32.0) meq/L Anion Gap 10 (5-15) meq/L BUN 23 H (7-18) mg/dL Creatinine 1.75 H (0.50-1.00) mg/dL Estimated GFR 28 L (>89) mL/min POC Glucose (68-110) mg/dl Random Glucose 175 H (74-106) mg/dL Calcium 8.4 L (8.5-10.1) mg/dL Phosphorus (2.5-4.9) mg/dL Magnesium (1.5-2.5) mg/dL Total Bilirubin 0.8 (0.2-1.0) mg/dL AST 45 H (15-37) U/L ALT 30 (10-53) U/L Alkaline Phosphatase 100 (45-117) U/L Total Creatine Kinase 81 (26-192) U/L Troponin I 0.03 (0.02-0.05) ng/mL B-Natriuretic Peptide (0-100) pg/mL Total Protein 8.4 H (6.4-8.2) g/dL Albumin 3.1 L (3.4-5.0) g/dL Pleural RBC (0-0) /mm3 Pleural Nuc Cells (0-10) /mm3 Pleural Neutrophils % Pleural Lymphocytes % Pleural Histocytes % Pleural Total Protein gm/dL Pleural LDH U/L Pleural Glucose mg/dL Nasal Screen MRSA (PCR) (Negative) Blood Type Antibody Screen MTS Gel Crossmatch 10/21/18 10/21/18 10/21/18 Range/Units 10:10 10:10 17:35 WBC (4.0-11.0) th/mm3 RBC (4.00-5.30) mil/mm3 Hgb (11.6-15.3) gm/dL Hct (35.0-46.0) % MCV (80.0-100.0) fL MCH (27.0-34.0) pg MCHC (32.0-36.0) % RDW (11.6-17.2) % Plt Count (150-450) th/mm3 MPV (7.0-11.0) fL Prelim Diff (Auto) Neut % (Auto) (16.0-70.0) % Lymph % (Auto) (9.0-44.0) % [place] % (Auto) (0.0-8.0) % Eos % (Auto) (0.0-4.0) % Baso % (Auto) (0.0-2.0) % Neut # (Auto) (1.8-7.7) th/mm3 Lymph # (Auto) (1.0-4.8) th/mm3 [place] # (Auto) (0.0-0.9) th/mm3 Eos # (Auto) (0.0-0.4) th/mm3 Baso # (Auto) (0.0-0.2) th/mm3 WBC Differential Seg Neuts % (Manual) (16-70) % Band Neuts % (Manual) (0-6) % Lymphocytes % (Manual) (9-44) % Monocytes % (Manual) (0-8) % Eosinophils % (Manual) (0-4) % Basophils % (Manual) (0-2) % Metamyelocytes % (Man) (0-1) % Myelocytes % (Man) (0-0) % Blast Cells % (Manual) (0-0) % Abs Neuts (Manual) (1.8-7.7) th/mm3 Nucleated RBCs/100 WBC (0-0) /100 WBC Differential Comment Platelet Estimate (Normal) Platelet Morphology (Normal) Polychromasia (0.0-1.9) % Ovalocytes (None) PT (9.8-11.6) sec INR Ratio APTT (23.4-31.7) sec Sodium (136-145) meq/L Potassium (3.5-5.1) meq/L Chloride (98-107) meq/L Carbon Dioxide (21.0-32.0) meq/L Anion Gap (5-15) meq/L BUN (7-18) mg/dL Creatinine (0.50-1.00) mg/dL Estimated GFR (>89) mL/min POC Glucose 145 H (68-110) mg/dl Random Glucose (74-106) mg/dL Calcium (8.5-10.1) mg/dL Phosphorus (2.5-4.9) mg/dL Magnesium (1.5-2.5) mg/dL Total Bilirubin (0.2-1.0) mg/dL AST (15-37) U/L ALT (10-53) U/L Alkaline Phosphatase (45-117) U/L Total Creatine Kinase Cancelled (26-192) U/L Troponin I (0.02-0.05) ng/mL B-Natriuretic Peptide 570 H (0-100) pg/mL Total Protein (6.4-8.2) g/dL Albumin (3.4-5.0) g/dL Pleural RBC (0-0) /mm3 Pleural Nuc Cells (0-10) /mm3 Pleural Neutrophils % Pleural Lymphocytes % Pleural Histocytes % Pleural Total Protein gm/dL Pleural LDH U/L Pleural Glucose mg/dL Nasal Screen MRSA (PCR) (Negative) Blood Type Antibody Screen MTS Gel Crossmatch 10/21/18 10/21/18 10/21/18 Range/Units 18:49 19:58 20:00 WBC (4.0-11.0) th/mm3 RBC (4.00-5.30) mil/mm3 Hgb (11.6-15.3) gm/dL Hct (35.0-46.0) % MCV (80.0-100.0) fL MCH (27.0-34.0) pg MCHC (32.0-36.0) % RDW (11.6-17.2) % Plt Count (150-450) th/mm3 MPV (7.0-11.0) fL Prelim Diff (Auto) Neut % (Auto) (16.0-70.0) % Lymph % (Auto) (9.0-44.0) % [place] % (Auto) (0.0-8.0) % Eos % (Auto) (0.0-4.0) % Baso % (Auto) (0.0-2.0) % Neut # (Auto) (1.8-7.7) th/mm3 Lymph # (Auto) (1.0-4.8) th/mm3 [place] # (Auto) (0.0-0.9) th/mm3 Eos # (Auto) (0.0-0.4) th/mm3 Baso # (Auto) (0.0-0.2) th/mm3 WBC Differential Seg Neuts % (Manual) (16-70) % Band Neuts % (Manual) (0-6) % Lymphocytes % (Manual) (9-44) % Monocytes % (Manual) (0-8) % Eosinophils % (Manual) (0-4) % Basophils % (Manual) (0-2) % Metamyelocytes % (Man) (0-1) % Myelocytes % (Man) (0-0) % Blast Cells % (Manual) (0-0) % Abs Neuts (Manual) (1.8-7.7) th/mm3 Nucleated RBCs/100 WBC (0-0) /100 WBC Differential Comment Platelet Estimate (Normal) Platelet Morphology (Normal) Polychromasia (0.0-1.9) % Ovalocytes (None) PT (9.8-11.6) sec INR Ratio APTT (23.4-31.7) sec Sodium (136-145) meq/L Potassium (3.5-5.1) meq/L Chloride (98-107) meq/L Carbon Dioxide (21.0-32.0) meq/L Anion Gap (5-15) meq/L BUN (7-18) mg/dL Creatinine (0.50-1.00) mg/dL Estimated GFR (>89) mL/min POC Glucose 176 H 174 H (68-110) mg/dl Random Glucose (74-106) mg/dL Calcium (8.5-10.1) mg/dL Phosphorus (2.5-4.9) mg/dL Magnesium (1.5-2.5) mg/dL Total Bilirubin (0.2-1.0) mg/dL AST (15-37) U/L ALT (10-53) U/L Alkaline Phosphatase (45-117) U/L Total Creatine Kinase (26-192) U/L Troponin I (0.02-0.05) ng/mL B-Natriuretic Peptide (0-100) pg/mL Total Protein (6.4-8.2) g/dL Albumin (3.4-5.0) g/dL Pleural RBC (0-0) /mm3 Pleural Nuc Cells (0-10) /mm3 Pleural Neutrophils % Pleural Lymphocytes % Pleural Histocytes % Pleural Total Protein gm/dL Pleural LDH U/L Pleural Glucose mg/dL Nasal Screen MRSA (PCR) Not detected (Negative) Blood Type Antibody Screen MTS Gel Crossmatch 1110/22/18 10/22/18 Range/Units 04:13 04:13 04:13 WBC 11.4 H (4.0-11.0) th/mm3 RBC 2.33 L (4.00-5.30) mil/mm3 Hgb 6.9 L* (11.6-15.3) gm/dL Hct 19.7 L* (35.0-46.0) % MCV 84.6 (80.0-100.0) fL MCH 29.5 (27.0-34.0) pg MCHC 34.9 (32.0-36.0) % RDW 14.3 (11.6-17.2) % Plt Count 73 L (150-450) th/mm3 MPV 9.6 (7.0-11.0) fL Prelim Diff (Auto) Slide review pending Neut % (Auto) 69.2 (16.0-70.0) % Lymph % (Auto) 16.4 (9.0-44.0) % [place] % (Auto) 13.4 H (0.0-8.0) % Eos % (Auto) 0.6 (0.0-4.0) % Baso % (Auto) 0.4 (0.0-2.0) % Neut # (Auto) 7.9 H (1.8-7.7) th/mm3 Lymph # (Auto) 1.9 (1.0-4.8) th/mm3 [place] # (Auto) 1.5 H (0.0-0.9) th/mm3 Eos # (Auto) 0.1 (0.0-0.4) th/mm3 Baso # (Auto) 0.0 (0.0-0.2) th/mm3 WBC Differential Manual diff final Seg Neuts % (Manual) 73 H (16-70) % Band Neuts % (Manual) 5 (0-6) % Lymphocytes % (Manual) 15 (9-44) % Monocytes % (Manual) 3 (0-8) % Eosinophils % (Manual) 1 (0-4) % Basophils % (Manual) (0-2) % Metamyelocytes % (Man) 1 (0-1) % Myelocytes % (Man) 1 H (0-0) % Blast Cells % (Manual) 1 H (0-0) % Abs Neuts (Manual) 9.1 H (1.8-7.7) th/mm3 Nucleated RBCs/100 WBC 4 H (0-0) /100 WBC Differential Comment . Platelet Estimate Low L (Normal) Platelet Morphology Normal (Normal) Polychromasia (0.0-1.9) % Ovalocytes 1+ H (None) PT (9.8-11.6) sec INR Ratio APTT (23.4-31.7) sec Sodium 139 (136-145) meq/L Potassium 3.3 L (3.5-5.1) meq/L Chloride 101 (98-107) meq/L Carbon Dioxide 31.3 (21.0-32.0) meq/L Anion Gap 7 (5-15) meq/L BUN 18 (7-18) mg/dL Creatinine 1.25 H (0.50-1.00) mg/dL Estimated GFR 41 L (>89) mL/min POC Glucose (68-110) mg/dl Random Glucose 127 H (74-106) mg/dL Calcium 8.3 L (8.5-10.1) mg/dL Phosphorus (2.5-4.9) mg/dL Magnesium 1.3 L (1.5-2.5) mg/dL Total Bilirubin 1.0 (0.2-1.0) mg/dL AST 40 H (15-37) U/L ALT 24 (10-53) U/L Alkaline Phosphatase 77 (45-117) U/L Total Creatine Kinase (26-192) U/L Troponin I (0.02-0.05) ng/mL B-Natriuretic Peptide (0-100) pg/mL Total Protein 7.8 D (6.4-8.2) g/dL Albumin 2.9 L (3.4-5.0) g/dL Pleural RBC (0-0) /mm3 Pleural Nuc Cells (0-10) /mm3 Pleural Neutrophils % Pleural Lymphocytes % Pleural Histocytes % Pleural Total Protein gm/dL Pleural LDH U/L Pleural Glucose mg/dL Nasal Screen MRSA (PCR) (Negative) Blood Type Antibody Screen MTS Gel Crossmatch 10/22/18 10/22/18 10/22/18 Range/Units 07:32 08:14 11:29 WBC (4.0-11.0) th/mm3 RBC (4.00-5.30) mil/mm3 Hgb (11.6-15.3) gm/dL Hct (35.0-46.0) % MCV (80.0-100.0) fL MCH (27.0-34.0) pg MCHC (32.0-36.0) % RDW (11.6-17.2) % Plt Count (150-450) th/mm3 MPV (7.0-11.0) fL Prelim Diff (Auto) Neut % (Auto) (16.0-70.0) % Lymph % (Auto) (9.0-44.0) % [place] % (Auto) (0.0-8.0) % Eos % (Auto) (0.0-4.0) % Baso % (Auto) (0.0-2.0) % Neut # (Auto) (1.8-7.7) th/mm3 Lymph # (Auto) (1.0-4.8) th/mm3 [place] # (Auto) (0.0-0.9) th/mm3 Eos # (Auto) (0.0-0.4) th/mm3 Baso # (Auto) (0.0-0.2) th/mm3 WBC Differential Seg Neuts % (Manual) (16-70) % Band Neuts % (Manual) (0-6) % Lymphocytes % (Manual) (9-44) % Monocytes % (Manual) (0-8) % Eosinophils % (Manual) (0-4) % Basophils % (Manual) (0-2) % Metamyelocytes % (Man) (0-1) % Myelocytes % (Man) (0-0) % Blast Cells % (Manual) (0-0) % Abs Neuts (Manual) (1.8-7.7) th/mm3 Nucleated RBCs/100 WBC (0-0) /100 WBC Differential Comment Platelet Estimate (Normal) Platelet Morphology (Normal) Polychromasia (0.0-1.9) % Ovalocytes (None) PT (9.8-11.6) sec INR Ratio APTT (23.4-31.7) sec Sodium (136-145) meq/L Potassium (3.5-5.1) meq/L Chloride (98-107) meq/L Carbon Dioxide (21.0-32.0) meq/L Anion Gap (5-15) meq/L BUN (7-18) mg/dL Creatinine (0.50-1.00) mg/dL Estimated GFR (>89) mL/min POC Glucose 153 H 161 H (68-110) mg/dl Random Glucose (74-106) mg/dL Calcium (8.5-10.1) mg/dL Phosphorus (2.5-4.9) mg/dL Magnesium (1.5-2.5) mg/dL Total Bilirubin (0.2-1.0) mg/dL AST (15-37) U/L ALT (10-53) U/L Alkaline Phosphatase (45-117) U/L Total Creatine Kinase (26-192) U/L Troponin I (0.02-0.05) ng/mL B-Natriuretic Peptide (0-100) pg/mL Total Protein (6.4-8.2) g/dL Albumin (3.4-5.0) g/dL Pleural RBC (0-0) /mm3 Pleural Nuc Cells (0-10) /mm3 Pleural Neutrophils % Pleural Lymphocytes % Pleural Histocytes % Pleural Total Protein gm/dL Pleural LDH U/L Pleural Glucose mg/dL Nasal Screen MRSA (PCR) (Negative) Blood Type O Positive Antibody Screen Negative MTS Gel Crossmatch See Detail 10/22/18 10/22/18 10/23/18 Range/Units 16:20 20:27 04:24 WBC (4.0-11.0) th/mm3 RBC (4.00-5.30) mil/mm3 Hgb (11.6-15.3) gm/dL Hct (35.0-46.0) % MCV (80.0-100.0) fL MCH (27.0-34.0) pg MCHC (32.0-36.0) % RDW (11.6-17.2) % Plt Count (150-450) th/mm3 MPV (7.0-11.0) fL Prelim Diff (Auto) Neut % (Auto) (16.0-70.0) % Lymph % (Auto) (9.0-44.0) % [place] % (Auto) (0.0-8.0) % Eos % (Auto) (0.0-4.0) % Baso % (Auto) (0.0-2.0) % Neut # (Auto) (1.8-7.7) th/mm3 Lymph # (Auto) (1.0-4.8) th/mm3 [place] # (Auto) (0.0-0.9) th/mm3 Eos # (Auto) (0.0-0.4) th/mm3 Baso # (Auto) (0.0-0.2) th/mm3 WBC Differential Seg Neuts % (Manual) (16-70) % Band Neuts % (Manual) (0-6) % Lymphocytes % (Manual) (9-44) % Monocytes % (Manual) (0-8) % Eosinophils % (Manual) (0-4) % Basophils % (Manual) (0-2) % Metamyelocytes % (Man) (0-1) % Myelocytes % (Man) (0-0) % Blast Cells % (Manual) (0-0) % Abs Neuts (Manual) (1.8-7.7) th/mm3 Nucleated RBCs/100 WBC (0-0) /100 WBC Differential Comment Platelet Estimate (Normal) Platelet Morphology (Normal) Polychromasia (0.0-1.9) % Ovalocytes (None) PT (9.8-11.6) sec INR Ratio APTT (23.4-31.7) sec Sodium 136 (136-145) meq/L Potassium 4.2 D (3.5-5.1) meq/L Chloride 98 (98-107) meq/L Carbon Dioxide 28.6 (21.0-32.0) meq/L Anion Gap 9 (5-15) meq/L BUN 25 H (7-18) mg/dL Creatinine 1.49 H (0.50-1.00) mg/dL Estimated GFR 33 L (>89) mL/min POC Glucose 135 H 160 H (68-110) mg/dl Random Glucose 228 H D (74-106) mg/dL Calcium 8.1 L (8.5-10.1) mg/dL Phosphorus 3.8 (2.5-4.9) mg/dL Magnesium 1.4 L (1.5-2.5) mg/dL Total Bilirubin 3.9 H (0.2-1.0) mg/dL AST 35 (15-37) U/L ALT 22 (10-53) U/L Alkaline Phosphatase 75 (45-117) U/L Total Creatine Kinase (26-192) U/L Troponin I (0.02-0.05) ng/mL B-Natriuretic Peptide (0-100) pg/mL Total Protein 8.0 (6.4-8.2) g/dL Albumin 3.0 L (3.4-5.0) g/dL Pleural RBC (0-0) /mm3 Pleural Nuc Cells (0-10) /mm3 Pleural Neutrophils % Pleural Lymphocytes % Pleural Histocytes % Pleural Total Protein gm/dL Pleural LDH U/L Pleural Glucose mg/dL Nasal Screen MRSA (PCR) (Negative) Blood Type Antibody Screen MTS Gel Crossmatch 10/23/18 10/23/18 10/23/18 Range/Units 04:24 08:12 12:06 WBC 10.3 (4.0-11.0) th/mm3 RBC 3.41 L (4.00-5.30) mil/mm3 Hgb 10.1 L D (11.6-15.3) gm/dL Hct 29.3 L (35.0-46.0) % MCV 86.0 (80.0-100.0) fL MCH 29.7 (27.0-34.0) pg MCHC 34.6 (32.0-36.0) % RDW 14.9 (11.6-17.2) % Plt Count 78 L (150-450) th/mm3 MPV 9.3 (7.0-11.0) fL Prelim Diff (Auto) Slide review pending Neut % (Auto) 75.3 H (16.0-70.0) % Lymph % (Auto) 11.0 (9.0-44.0) % [place] % (Auto) 13.4 H (0.0-8.0) % Eos % (Auto) 0.2 (0.0-4.0) % Baso % (Auto) 0.1 (0.0-2.0) % Neut # (Auto) 7.8 H (1.8-7.7) th/mm3 Lymph # (Auto) 1.1 (1.0-4.8) th/mm3 [place] # (Auto) 1.4 H (0.0-0.9) th/mm3 Eos # (Auto) 0.0 (0.0-0.4) th/mm3 Baso # (Auto) 0.0 (0.0-0.2) th/mm3 WBC Differential Manual diff final Seg Neuts % (Manual) 70 (16-70) % Band Neuts % (Manual) 2 (0-6) % Lymphocytes % (Manual) 6 L (9-44) % Monocytes % (Manual) 12 H (0-8) % Eosinophils % (Manual) (0-4) % Basophils % (Manual) 1 (0-2) % Metamyelocytes % (Man) 3 H (0-1) % Myelocytes % (Man) 6 H (0-0) % Blast Cells % (Manual) (0-0) % Abs Neuts (Manual) 8.3 H (1.8-7.7) th/mm3 Nucleated RBCs/100 WBC 3 H (0-0) /100 WBC Differential Comment . Platelet Estimate Low L (Normal) Platelet Morphology Normal (Normal) Polychromasia 2.6 H (0.0-1.9) % Ovalocytes 1+ H (None) PT (9.8-11.6) sec INR Ratio APTT (23.4-31.7) sec Sodium (136-145) meq/L Potassium (3.5-5.1) meq/L Chloride (98-107) meq/L Carbon Dioxide (21.0-32.0) meq/L Anion Gap (5-15) meq/L BUN (7-18) mg/dL Creatinine (0.50-1.00) mg/dL Estimated GFR (>89) mL/min POC Glucose 251 H 294 H (68-110) mg/dl Random Glucose (74-106) mg/dL Calcium (8.5-10.1) mg/dL Phosphorus (2.5-4.9) mg/dL Magnesium (1.5-2.5) mg/dL Total Bilirubin (0.2-1.0) mg/dL AST (15-37) U/L ALT (10-53) U/L Alkaline Phosphatase (45-117) U/L Total Creatine Kinase (26-192) U/L Troponin I (0.02-0.05) ng/mL B-Natriuretic Peptide (0-100) pg/mL Total Protein (6.4-8.2) g/dL Albumin (3.4-5.0) g/dL Pleural RBC (0-0) /mm3 Pleural Nuc Cells (0-10) /mm3 Pleural Neutrophils % Pleural Lymphocytes % Pleural Histocytes % Pleural Total Protein gm/dL Pleural LDH U/L Pleural Glucose mg/dL Nasal Screen MRSA (PCR) (Negative) Blood Type Antibody Screen MTS Gel Crossmatch 10/23/18 10/23/18 10/23/18 Range/Units 13:43 13:43 16:19 WBC (4.0-11.0) th/mm3 RBC (4.00-5.30) mil/mm3 Hgb (11.6-15.3) gm/dL Hct (35.0-46.0) % MCV (80.0-100.0) fL MCH (27.0-34.0) pg MCHC (32.0-36.0) % RDW (11.6-17.2) % Plt Count (150-450) th/mm3 MPV (7.0-11.0) fL Prelim Diff (Auto) Neut % (Auto) (16.0-70.0) % Lymph % (Auto) (9.0-44.0) % [place] % (Auto) (0.0-8.0) % Eos % (Auto) (0.0-4.0) % Baso % (Auto) (0.0-2.0) % Neut # (Auto) (1.8-7.7) th/mm3 Lymph # (Auto) (1.0-4.8) th/mm3 [place] # (Auto) (0.0-0.9) th/mm3 Eos # (Auto) (0.0-0.4) th/mm3 Baso # (Auto) (0.0-0.2) th/mm3 WBC Differential Seg Neuts % (Manual) (16-70) % Band Neuts % (Manual) (0-6) % Lymphocytes % (Manual) (9-44) % Monocytes % (Manual) (0-8) % Eosinophils % (Manual) (0-4) % Basophils % (Manual) (0-2) % Metamyelocytes % (Man) (0-1) % Myelocytes % (Man) (0-0) % Blast Cells % (Manual) (0-0) % Abs Neuts (Manual) (1.8-7.7) th/mm3 Nucleated RBCs/100 WBC (0-0) /100 WBC Differential Comment Platelet Estimate (Normal) Platelet Morphology (Normal) Polychromasia (0.0-1.9) % Ovalocytes (None) PT (9.8-11.6) sec INR Ratio APTT (23.4-31.7) sec Sodium (136-145) meq/L Potassium (3.5-5.1) meq/L Chloride (98-107) meq/L Carbon Dioxide (21.0-32.0) meq/L Anion Gap (5-15) meq/L BUN (7-18) mg/dL Creatinine (0.50-1.00) mg/dL Estimated GFR (>89) mL/min POC Glucose 266 H (68-110) mg/dl Random Glucose (74-106) mg/dL Calcium (8.5-10.1) mg/dL Phosphorus (2.5-4.9) mg/dL Magnesium (1.5-2.5) mg/dL Total Bilirubin (0.2-1.0) mg/dL AST (15-37) U/L ALT (10-53) U/L Alkaline Phosphatase (45-117) U/L Total Creatine Kinase (26-192) U/L Troponin I (0.02-0.05) ng/mL B-Natriuretic Peptide (0-100) pg/mL Total Protein (6.4-8.2) g/dL Albumin (3.4-5.0) g/dL Pleural RBC 1418 H (0-0) /mm3 Pleural Nuc Cells 354 H (0-10) /mm3 Pleural Neutrophils 16 % Pleural Lymphocytes 81 % Pleural Histocytes 3 % Pleural Total Protein 1.7 gm/dL Pleural LDH 74 U/L Pleural Glucose 264 mg/dL Nasal Screen MRSA (PCR) (Negative) Blood Type Antibody Screen MTS Gel Crossmatch 10/23/18 10/24/18 10/24/18 Range/Units 20:22 12:09 17:51 WBC (4.0-11.0) th/mm3 RBC (4.00-5.30) mil/mm3 Hgb (11.6-15.3) gm/dL Hct (35.0-46.0) % MCV (80.0-100.0) fL MCH (27.0-34.0) pg MCHC (32.0-36.0) % RDW (11.6-17.2) % Plt Count (150-450) th/mm3 MPV (7.0-11.0) fL Prelim Diff (Auto) Neut % (Auto) (16.0-70.0) % Lymph % (Auto) (9.0-44.0) % [place] % (Auto) (0.0-8.0) % Eos % (Auto) (0.0-4.0) % Baso % (Auto) (0.0-2.0) % Neut # (Auto) (1.8-7.7) th/mm3 Lymph # (Auto) (1.0-4.8) th/mm3 [place] # (Auto) (0.0-0.9) th/mm3 Eos # (Auto) (0.0-0.4) th/mm3 Baso # (Auto) (0.0-0.2) th/mm3 WBC Differential Seg Neuts % (Manual) (16-70) % Band Neuts % (Manual) (0-6) % Lymphocytes % (Manual) (9-44) % Monocytes % (Manual) (0-8) % Eosinophils % (Manual) (0-4) % Basophils % (Manual) (0-2) % Metamyelocytes % (Man) (0-1) % Myelocytes % (Man) (0-0) % Blast Cells % (Manual) (0-0) % Abs Neuts (Manual) (1.8-7.7) th/mm3 Nucleated RBCs/100 WBC (0-0) /100 WBC Differential Comment Platelet Estimate (Normal) Platelet Morphology (Normal) Polychromasia (0.0-1.9) % Ovalocytes (None) PT (9.8-11.6) sec INR Ratio APTT (23.4-31.7) sec Sodium (136-145) meq/L Potassium (3.5-5.1) meq/L Chloride (98-107) meq/L Carbon Dioxide (21.0-32.0) meq/L Anion Gap (5-15) meq/L BUN (7-18) mg/dL Creatinine (0.50-1.00) mg/dL Estimated GFR (>89) mL/min POC Glucose 198 H 237 H 178 H (68-110) mg/dl Random Glucose (74-106) mg/dL Calcium (8.5-10.1) mg/dL Phosphorus (2.5-4.9) mg/dL Magnesium (1.5-2.5) mg/dL Total Bilirubin (0.2-1.0) mg/dL AST (15-37) U/L ALT (10-53) U/L Alkaline Phosphatase (45-117) U/L Total Creatine Kinase (26-192) U/L Troponin I (0.02-0.05) ng/mL B-Natriuretic Peptide (0-100) pg/mL Total Protein (6.4-8.2) g/dL Albumin (3.4-5.0) g/dL Pleural RBC (0-0) /mm3 Pleural Nuc Cells (0-10) /mm3 Pleural Neutrophils % Pleural Lymphocytes % Pleural Histocytes % Pleural Total Protein gm/dL Pleural LDH U/L Pleural Glucose mg/dL Nasal Screen MRSA (PCR) (Negative) Blood Type Antibody Screen MTS Gel Crossmatch Imaging Data Radiologist's impression: Abdomen Ultrasound 10/21/18 00:00 CONCLUSION: 1. Cirrhotic liver. Hepatic masses noted on CT exam are not well demonstrated on ultrasound. Again, Eovist MRI examination may be performed for further evaluation. 2. Bilateral renal cysts. Abdomen/Pelvis CT 10/21/18 00:00 CONCLUSION: 1. Cirrhotic appearing liver with numerous bilobar hepatic masses measuring up to 2.4 cm. Differential considerations include metastatic disease versus bilobar hepatocellular carcinoma. 2. New subcentimeter mesenteric nodule in the anterior right upper quadrant. Although nonspecific, mesenteric metastasis cannot be excluded. 3. Moderate stool in the ascending and transverse colon consistent with some degree of constipation. 4. Mild distention of the bladder with nonspecific prostate enlargement. This may reflect some degree of bladder outlet obstruction. 5. Sigmoid diverticulosis without evidence for diverticulitis. 6. Stable additional ancillary findings, as above. Chest CT 10/21/18 10:07 CONCLUSION: 1. Bilateral pleural effusions being moderate on the right and mild on the left. 2. Bibasilar areas of consolidation or atelectasis being worse in the right. There is also some involvement in the right middle lobe. 3. Nonspecific enlarged symptoms in the mediastinum. 4. Cirrhotic liver with what appear to be multiple masses. Chest X-Ray 10/21/18 10:07 CONCLUSION: Pleural and parenchymal changes at the right base with consolidation/ atelectasis and a right pleural effusion. Blunting of the costophrenic angle on the left likely related to a mild left effusion. Prominent interstitium which may represent underlying edema. Chest X-Ray 10/23/18 00:00 CONCLUSION: No pneumothorax Thoracentesis Ultrasound 10/23/18 00:00 CONCLUSION: 1. Uncomplicated thoracentesis. ECG Data EKG Prior to Arrival: No Attestation: I personally reviewed and interpreted this ECG as follows: Interpretation: electronic ventricular pacemaker, T wave depression in leads V4- V6 Discharge Plan Discharge Disposition Patient Disposition: 01 Discharge Home Discharge Condition Condition: Good Discharge Order Discharge Orders: Discharge Order (Routine); Ordered 10/24/18 Ordered By: Jada Ewing Discharge Details Anticipated Discharge Date: 10/24/18 Discharge Comment: D/C home at 6PM. Physicians Team ED Provider: Bia Harden Primary Care Provider: Claudia Richard Attending Provider: Jada Ewing Other Providers: Sallie Ng Status ED Status: Left Department Discharge Information Discharge Date/Time: 10/21/18 13:48
[2018-10-21 10:32] LABS: Baso # (Auto) 0.1 th/mm3 (0.0-0.2); Baso % (Auto) 0.4 % (0.0-2.0); Eos # (Auto) 0.1 th/mm3 (0.0-0.4); Eos % (Auto) 0.8 % (0.0-4.0); Hematocrit 22.5 % (35.0-46.0); Hemoglobin 7.5 gm/dL (11.6-15.3); Lymph # (Auto) 2.3 th/mm3 (1.0-4.8); Lymph % (Auto) 15.4 % (9.0-44.0); Mean Corpuscular HGB Conc 33.2 % (32.0-36.0); Mean Corpuscular Volume 87.2 fL (80.0-100.0); Mean Platelet Volume 9.8 fL (7.0-11.0); Mono % (Auto) 13.6 % (0.0-8.0); Neut # (Auto) 10.2 th/mm3 (1.8-7.7); Neut % (Auto) 69.8 % (16.0-70.0); Platelet Count 81 th/mm3 (150-450); Red Blood Count 2.59 mil/mm3 (4.00-5.30); Red Cell Distribution Width 14.6 % (11.6-17.2); White Blood Count 14.6 th/mm3 (4.0-11.0)
[2018-10-21 10:39] LABS: Activated Partial Thrombo Time 24.2 sec (23.4-31.7); INR 1.3 Ratio; Prothrombin Time 13.3 sec (9.8-11.6)
--- NOTE | 2018-10-21 10:39 | XR ---
EXAM DATE: 10/21/2018 10:35 AM EST AGE/SEX: 83 years / Female INDICATIONS: Short of breath. CLINICAL DATA: This is the patient's initial encounter. Patient reports that signs and symptoms have been present for 4 - 6 days and indicates a pain score of 0/10. MEDICAL/SURGICAL HISTORY: . Congestive heart failure. Hepatitis C. Diabetes mellitus type II. A -fib. Coronary artery disease. Chronic kidney disease. COPD. Hypertension. Myocardial infarction. Ast hma. Pacemaker. Coronary artery stent. Chest tube, right. . COMPARISON: [facility] – [place], CHEST 2V AP&LAT, 10/07/2018. . FINDINGS: There is a pacing device seen in the left chest. The heart size is mildly enlarged. There is increase d density at the right base with silhouetting the right hemidiaphragm. There is some mild underlying prominence of interstitium. There is minimal blunting of the left costophrenic angle. CONCLUSION: Pleural and parenchymal changes at the right base with consolidation/atelectasis and a right pleural effusion. Blunting of the costophrenic angle on the left likely related to a mild left effusion. Prominent interstitium which may represent underlying edema. Electronically signed by: Ismael Webb MD 10/21/2018 10:38 AM EST
[2018-10-21 10:47] LABS: Alanine Aminotransferase 30 U/L (10-53); Albumin 3.1 g/dL (3.4-5.0); Anion Gap 10 meq/L (5-15); Aspartate Aminotransferase 45 U/L (15-37); Blood Urea Nitrogen 23 mg/dL (7-18); Calcium 8.4 mg/dL (8.5-10.1); Carbon Dioxide 27.7 meq/L (21.0-32.0); Chloride 100 meq/L (98-107); Glomerular Filtration Rate 28 mL/min (>89); Glucose,Random 175 mg/dL (74-106); Potassium 3.4 meq/L (3.5-5.1); Sodium 138 meq/L (136-145)
[2018-10-21 10:50] LABS: Alkaline Phosphatase 100 U/L (45-117); Total Protein 8.4 g/dL (6.4-8.2); Troponin I 0.03 ng/mL (0.02-0.05)
[2018-10-21 10:52] LABS: Creatine Kinase 81 U/L (26-192)
--- NOTE | 2018-10-21 11:10 | CT ---
EXAM DATE: 10/21/2018 10:59 AM EST AGE/SEX: 83 years / Female INDICATIONS: Shortness of breath. CLINICAL DATA: This is the patient's initial encounter. Patient reports that signs and symptoms have been present for 1 day and indicates a pain score of 5/10. MEDICAL/SURGICAL HISTORY: Myocardial infarction. Chronic obstructive pulmonary disease. Congestiv e heart failure. Pacemaker. RADIATION DOSE: 4.68 CTDI (mGy) [place] [facility] [place]. [facility] [place]. . TECHNIQUE: Multiple contiguous axial images were obtained through the chest without contrast. Image s were obtained in suspended respiration using multiple row detector helical technique. Using automa garland exposure control and adjustment of the mA and/or kV according to patient size, radiation dose was kept as low as reasonably achievable to obtain optimal diagnostic quality images. DICOM format imag e data is available electronically for review and comparison. FINDINGS: Lungs: There is a moderate right pleural effusion. There is increased density seen in the inferior r ight middle lobe and right lower lobe. This could be related to atelectasis and/or consolidation. The re is some very minimal patchy density seen at the posterior right upper lung. There are some mild in creased density at the left base. There is a mild left pleural effusion. There is scattered mosaic at tenuation seen in the upper and mid lungs likely related to some interstitial disease and/or air trap ping. Mediastinum: There are prominent lymph nodes in the mediastinum including a 1.6 cm node in the pretr acheal region, there is a prominent lymph node in the precarinal region and the prevascular space. Th e patient has a cardiac pacemaker in place. After a calcified lesions are seen at the aorta and coron edison arteries. Pleurae: There is a moderate right pleural effusion and a mild left pleural effusion. Axillae: Unremarkable. Bony Structures: Unremarkable. Miscellaneous: The examination was extended to include the upper abdomen, and both adrenal glands ar e normal in size and configuration. The liver appears nodular with hypertrophy of the left lobe and c audate. There are multiple low-density masses seen throughout the liver. There is a low-density area seen in the posterior superior aspect of the right kidney likely related to a cyst although is nonspe cific on this noncontrast CT examination. There is punctate calcification seen in the right upper kid rowena with some area of cortical thinning. CONCLUSION: 1. Bilateral pleural effusions being moderate on the right and mild on the left. 2. Bibasilar areas of consolidation or atelectasis being worse in the right. There is also some invo lvement in the right middle lobe. 3. Nonspecific enlarged symptoms in the mediastinum. 4. Cirrhotic liver with what appear to be multiple masses. Electronically signed by: Ismael Webb MD 10/21/2018 11:09 AM EST
[2018-10-21 11:18] LABS: Blast Cells 1 % (0-0); Eosinophils 1 % (0-4); Lymphocytes 18 % (9-44); Metamyelocytes 7 % (0-1); Monocytes 1 % (0-8); Myelocytes 2 % (0-0); Ovalocytes 1+; Platelet Morphology Normal (Normal); Tallied Nucleated RBC 3 (0-0)
[2018-10-21] MEDS ORDERED: Acetaminophen 325 MG Tablet PO PRN (12:17)
[2018-10-21] MEDS ORDERED: Dextrose 50% in Water 50 ML Vial IV.PUSH PRN (12:45)
[2018-10-21] MEDS ORDERED: RESP: Albuterol Concentrated 2.5 MG/0.5 ML Neb NEB PRN (12:46)
--- NOTE | 2018-10-21 13:24 | P.HPIM ---
History of Present Illness Primary Care Physician: Claudia Richard History of Present Illness: Mrs. Ortiz is an 83-year-old female. She comes in the hospital today secondary to respiratory distress. She uses oxygen at baseline but is requiring a greater amount of oxygen to maintain her saturations. By the time I am seeing her in the emergency department she is feeling better. She did receive a dose of Bumex. At baseline she has CHF, COPD, and chronic hypoxia. Her last hospital admit was for pneumonia and CHF exacerbation on 10/02/2018. At that time the antibiotic selected was linezolid because this patient has numerous antibiotic allergies. Imaging of the chest tonight shows a moderately sized pleural effusion on the right side with a mild pleural effusion on the left. She does have a chronic small pleural effusion as her baseline. Cirrhosis is present at baseline, however, of concern are new findings of liver masses. There is also lymphadenopathy seen in the mediastinum. The potential of these masses could indicate cancer could further explain her pleural effusion. Further imaging pending. The patient complains of no pain occluding her chest, abdomen, or back. With oxygen in the ER and status post diuretics she is feeling better. Her preference is to treat with diuretics rather than thoracentesis but we agreed to see how she does next 24 hours. Acute kidney injury is also present and prohibits use of contrast but this is also prohibited due to patient's iodinated contrast allergies. She is claustrophobic and does not want to utilize an MRI. Inpatient Certification: I certify that the inpatient services were ordered in accordance with Medicare regulations governing the order. This includes certification that hospital inpatient services are reasonable and necessary and in the case of services not specified as inpatient-only under 42 CFR 419.22(n), that they are appropriately provided as inpatient services in accordance to with the 2-midnight benchmark under 43 CFR 412.3(e) Estimated Total Length of Stay (Days): 4 Plans for Post Hospital Care: Home Review of Systems Constitutional: No fevers, no chills no night sweats, no fatigue, no weakness Eyes: No eye pain, no blurry vision, no loss of vision ENT: No sore throat, no ear pain, no rhinorrhea Cardiovascular: No chest pain, no tachycardia, no palpitations, no syncope Respiratory: No wheezing, no cough, shortness of breath Gastrointestinal: No abdominal pain, no black tarry stools, no bright red blood per rectum, no vomiting, no diarrhea Musculoskeletal: No joint pain, no muscle cramps, no stiffness Integumentary: No rash, no ulcers, no drainage Neurologic: No sensory loss, no loss of motor function, no dizziness Psychiatric: No behavioral changes, no hallucinations, no suicidal ideations PMFSH - History History Provided By: Patient, Family Member - Medical History Medical History: Medical History (Last Reviewed 10/21/18 @ 10:22 by Bia Harden MD) Afib Asthma CAD (coronary artery disease) CHF (congestive heart failure) CKD (chronic kidney disease) COPD (chronic obstructive pulmonary disease) Cirrhosis Diabetes HTN (hypertension) Hepatitis C Myocardial infarction Pacemaker - Surgical History Surgical History: Surgical History (Last Reviewed 10/21/18 @ 10:22 by Bia Harden MD) History of cholecystectomy History of heart artery stent - Family History Family History: Family History (Last Reviewed 10/21/18 @ 10:22 by Bia Harden MD) Other HTN (hypertension) - Tobacco History Second Hand Smoke Exposure: No Smoking Status: Never smoker - Alcohol History How Often Do You Have a Drink Containing Alcohol: Never - Substance Use History Substance History: No History of Abuse - Travel History History of Recent Travel: No Recent Travel in the [place] Within the Last 8 Weeks: No Recent Travel Out of the Country Within the Last 8 Weeks: No - Immunization History Tetanus Immunization: Never Vaccinated Medications and Allergies Active Medications: Active Medications Acetaminophen (Tylenol) 650 mg PO Q4H PRN PRN Reason: Temp > 100.4 Albuterol (Duoneb Neb (Prn)) ampul INH Q12HR [facility] Albuterol (Albuterol Concentrated Neb) 2.5 mg NEB Q4HR NEB PRN PRN Reason: WHEEZING Apixaban (Eliquis) 2.5 mg PO BID [facility] Budesonide/Formoterol Fumarate (Symbicort 160/4.5 Mcg Inh) 2 puff INH BID [facility] Bumetanide (Bumex) 1 mg PO DAILY@0800,1600 [facility] Dextrose (D50w Vial) 50 ml IV.PUSH UNSCH PRN PRN Reason: PER HYPOGLYCEMIA PROTOCOL Digoxin (Lanoxin) 125 mcg PO EVERY OTHER DAY [facility] Famotidine (Pepcid) 20 mg PO DAILY [facility] Ferrous Sulfate (Ferosul) 325 mg PO DAILY [facility] Glucagon (Glucagon Inj) 1 mg OTHER PRN PRN PRN Reason: for Hypoglycemia Protocol Insulin Aspart (Novolog Insulin Correctional Sugar Inj) 0 unit SQ ACHS [facility]; Protocol Levothyroxine Sodium (Synthroid) 125 mcg PO DAILY@0600 [facility] Metoprolol Succinate (Toprol Xl) 25 mg PO Q12HR [facility] Non-Formulary Medication (Arformoterol [Brovana]) 1 puff INHALATION BID [facility] Non-Formulary Medication (Diltiazem Hcl [Diltiazem Hcl]) 180 mg PO TID [facility] Non-Formulary Medication (Insulin Degludec [Tresiba Flextouch U-100]) 20 unit SQ DAILY [facility] Ondansetron HCl (Zofran Inj) 4 mg IV.PUSH Q6H PRN PRN Reason: NAUSEA OR VOMITING Senna/Docusate Sodium (Arianne-Colace) 1 tab PO BID [facility] Sennosides (Senokot) 17.2 mg PO Q12H PRN PRN Reason: Moderate Constipation Sucralfate (Carafate) 1 gm PO Q6HR [facility] Allergies Allergy/AdvReac Type Severity Reaction Status Date / Time penicillin G Allergy Severe Anaphylaxis Verified 10/02/18 10:13 Iodinated Contrast- Oral and AdvReac Severe Hives Verified 10/02/18 10:13 IV Dye levofloxacin AdvReac Severe Confusion Verified 10/02/18 10:13 Quinolones AdvReac Severe Confusion Verified 10/02/18 10:13 verapamil AdvReac Severe Nausea/Vomi Verified 10/02/18 10:13 ting Home Medications Medication Instructions Recorded Confirmed Type apixaban [Eliquis] 2.5 mg PO BID 08/13/18 10/21/18 History diltiazem HCl 180 mg PO TID 08/13/18 10/21/18 History sitagliptin [Januvia] 50 mg PO DAILY 08/13/18 10/21/18 History albuterol sulfate [ProAir HFA] 2 puff INHALATION Q4-6H PRN 09/06/18 10/21/18 History arformoterol [Brovana] 1 puff INHALATION BID 09/06/18 10/21/18 History budesonide-formoterol [Symbicort] 2 puff INHALATION BID 09/06/18 10/21/18 History ferrous gluconate 270 mg PO DAILY 09/06/18 10/21/18 History insulin aspart U-100 [Novolog 1 sliding scale dose SUBCUT UD PRN 09/06/18 History PenFill U-100 Insulin] insulin degludec [Tresiba 20 unit SUBCUT DAILY 09/06/18 10/21/18 History FlexTouch U-100] ipratropium-albuterol 3 ml INHALATION Q12HR 10/02/18 10/21/18 History levothyroxine 125 mcg PO DAILY 10/02/18 10/21/18 History bumetanide 0.5 mg PO BID 10/21/18 10/21/18 History digoxin [Lanoxin] 0.125 mg PO EVERY OTHER DAY 10/21/18 10/21/18 History metoprolol succinate [Toprol XL] 25 mg PO Q12HR 10/21/18 10/21/18 History ranitidine HCl [Zantac] 150 mg PO DAILY 10/21/18 10/21/18 History sucralfate [Carafate] 1 g PO Q6H 10/21/18 10/21/18 History Exam Vital signs: Vital Signs 10/21/18 09:52 10/21/18 10:27 10/21/18 10:34 Temperature 98.3 F Pulse Rate 104 H 104 H Respiratory Rate 26 H 18 Blood Pressure 168/76 H Pulse Oximetry 92 L 96 97 10/21/18 11:09 Temperature Pulse Rate 97 H Respiratory Rate 24 Blood Pressure 162/76 H Pulse Oximetry 98 Intake & Output 10/20/18 10/21/18 10/21/18 18:59 06:59 18:59 Weight 50.802 kg Narrative: GENERAL: NAD, A&Ox3 HEAD: Normocephalic. NECK: Supple, trachea midline. No lymphadenopathy. EYES: No scleral icterus. No injection or drainage. CARDIOVASCULAR: Regular rate and rhythm without murmurs, gallops, or rubs. RESPIRATORY: Breath sounds equal bilaterally. No accessory muscle use. Crackles at bases bilaterally. GASTROINTESTINAL: Abdomen soft, non-tender, nondistended. MUSCULOSKELETAL: No cyanosis, or edema. SKIN: Warm and dry. NEURO: No focal neurological deficits. Results - Labs CBC & Chem 7: 10/21/18 10:10 10/21/18 10:10 Labs: Short CBC 10/21/18 Range/Units 10:10 WBC 14.6 H (4.0-11.0) th/mm3 Hgb 7.5 L (11.6-15.3) gm/dL Hct 22.5 L (35.0-46.0) % Plt Count 81 L D (150-450) th/mm3 BMP 10/21/18 10:10 Sodium 138 Potassium 3.4 L Chloride 100 Carbon Dioxide 27.7 BUN 23 H Creatinine 1.75 H Calcium 8.4 L Cardiac Enzymes 10/21/18 10/21/18 Range/Units 10:10 10:10 Total Creatine Kinase 81 Cancelled (26-192) U/L Troponin I 0.03 (0.02-0.05) ng/mL Liver Function 10/21/18 Range/Units 10:10 Total Bilirubin 0.8 (0.2-1.0) mg/dL AST 45 H (15-37) U/L ALT 30 (10-53) U/L Alkaline Phosphatase 100 (45-117) U/L Albumin 3.1 L (3.4-5.0) g/dL - Imaging Impressions Chest CT 10/21/18 10:07 CONCLUSION: 1. Bilateral pleural effusions being moderate on the right and mild on the left. 2. Bibasilar areas of consolidation or atelectasis being worse in the right. There is also some involvement in the right middle lobe. 3. Nonspecific enlarged symptoms in the mediastinum. 4. Cirrhotic liver with what appear to be multiple masses. Chest X-Ray 10/21/18 10:07 CONCLUSION: Pleural and parenchymal changes at the right base with consolidation/ atelectasis and a right pleural effusion. Blunting of the costophrenic angle on the left likely related to a mild left effusion. Prominent interstitium which may represent underlying edema. Caprini VTE Risk Assessment Caprini VTE Risk Assessment: Moderate/High Risk (score >= 2) Caprini Risk Assessment Model: Point Value = 1 Point Value = 2 Point Value = 3 Point Value = 5 Age 41-60 Minor surgery BMI > 25 kg/m2 Swollen legs Varicose veins or History of unexplained or recurrent spontaneous Oral contraceptives or hormone replacement Sepsis (< 1 month) Serious lung disease, including pneumonia (< 1 month) Abnormal pulmonary function Acute myocardial infarction Congestive heart failure (< 1 month) History of inflammatory bowel disease Medical patient at bed rest Age 61-74 Arthroscopic surgery Major open surgery (> 45 min) Laparoscopic surgery (> 45 min) Malignancy Confined to bed (> 72 hours) Immobilizing plaster cast Central venous access Age >= 75 History of VTE Family history of VTE Factor V Leiden Prothrombin 28602L Lupus anticoagulant Anticardiolipin antibodies Elevated serum homocysteine Heparin-induced thrombocytopenia Other congenital or acquired thrombophilia Stroke (< 1 month) Elective arthroplasty Hip, pelvis, or leg fracture Acute spinal cord injury (< 1 month) Prophylaxis Regimen: Total Risk Factor Score Risk Level Prophylaxis Regimen 0-1 Low Early ambulation 2 Moderate Order ONE of the following: *Sequential Compression Device (SCD) *Heparin 5000 units SQ BID 3-4 Higher Order ONE of the following medications: *Heparin 5000 units SQ TID *Enoxaparin/Lovenox 40 mg SQ daily (WT < 150 kg, CrCl > 30 mL/min) *Enoxaparin/Lovenox 30 mg SQ daily (WT < 150 kg, CrCl > 10-29 mL/min) *Enoxaparin/Lovenox 30 mg SQ BID (WT < 150 kg, CrCl > 30 mL/min) AND/OR *Sequential Compression Device (SCD) 5 or more Highest Order ONE of the following medications: *Heparin 5000 units SQ TID (Preferred with Epidurals) *Enoxaparin/Lovenox 40 mg SQ daily (WT < 150 kg, CrCl > 30 mL/min) *Enoxaparin/Lovenox 30 mg SQ daily (WT < 150 kg, CrCl > 10-29 mL/min) *Enoxaparin/Lovenox 30 mg SQ BID (WT < 150 kg, CrCl > 30 mL/min) AND *Sequential Compression Device (SCD) Assessment and Plan - Plan 83-year-old female admitted secondary to acute respiratory distress with acute on chronic respiratory failure Acute respiratory failure Chronic respiratory failure Leukocytosis Continue oxygen supplementation Treat with diuretic as below Monitor for return to baseline Leukocytosis may be reactive, no evidence of pneumonia If leukocytosis increases antibiotics could be considered At last admit patient needed to use Linezolid to treat her pneumonia because of her diverse antibiotic allergy profile Systolic CHF exacerbation At baseline patient takes 0.5 mg of Bumex twice daily, this will be increased to 1 mg p.o. Bumex twice daily Follow renal function during this treatment Follow clinically for improvement in respiratory status Moderate right-sided pleural effusion Potential need for thoracentesis, especially if diuretics do not improve her respiratory state Eliquis will have to be held if thoracentesis is needed Liver masses Mediastinal lymphadenopathy Things are discussed with the patient, she is apprehensive about biopsy Further imaging with abdominal ultrasound Further imaging with abdomen/pelvis CT scan Possibility of another area abdomen the liver for biopsy may be found on imaging if masses are confirmed with these other studies will discuss biopsy further Eliquis will have to be held if biopsy is needed Acute kidney injury Provide diuretics as listed above Follow renal function Avoid nephrotoxins Diabetes mellitus type 2 Follow blood sugars Insulin sliding scale Diabetic diet Afib Pacemaker Coronary artery disease History of myocardial infarction Follow on telemetry Continue Eliquis for now No chest pain Continue diltiazem COPD No evidence of exacerbation when seen Monitor for evidence of exacerbation As needed albuterol Continue baseline treatments Continue oxygen supplementation Cirrhosis Avoid alcohol Avoid Tylenol Hepatitis C Standard precautions Hypertension Continue baseline treatment Follow blood pressures Adjust treatments as needed DVT prophylaxis Eliquis
--- NOTE | 2018-10-21 14:01 | ECG ---
Date Performed: 10/21/2018 Time Performed: 09:57:36 PTAGE: 83 years EKG: ATRIAL FIBRILLATION ELECTRONIC VENTRICULAR PACEMAKER -- CONTOUR ANALYSIS BASED ON INTRINSIC RHYTHM ST DEVIATION AND MODERATE T-WAVE ABNORMALITY, CONSIDER LATERAL ISCHEMIA ABNORMAL ECG PREVIOUS TRACING : 10/02/2018 09.10 DOCTOR: Red Macario Interpretating Date/Time 10/21/2018 14:00:27
--- NOTE | 2018-10-21 14:12 | CT ---
EXAM DATE: 10/21/2018 1:54 PM EST AGE/SEX: 83 years / Female INDICATIONS: Nausea and vomiting today. CLINICAL DATA: This is the patient's initial encounter. Patient reports that signs and symptoms have been present for 1 day and indicates a pain score of 3/10. MEDICAL/SURGICAL HISTORY: Hepatitis C. Diabetes. Chronic obstructive pulmonary disease. Coron edison artery stent. RADIATION DOSE: 6.64 CTDI (mGy) COMPARISON: [facility], CTA AORTA W/ [place], 02/19/2016. . TECHNIQUE: Multiple contiguous axial images were obtained through the abdomen. Images were obtained using multiple row detector helical technique. Using automated exposure control and adjustment of the mA and/or kV according to patient size, radiation dose was kept as low as reasonably achievable to o btain optimal diagnostic quality images. DICOM format image data is available electronically for rev iew and comparison. FINDINGS: LOWER LUNGS: Moderate right and trace left pleural effusions with associated airspace disease at the lung bases. Cardiac silhouette is enlarged without significant pericardial effusion. LIVER: Cirrhotic appearing liver containing multiple bilobar hepatic masses. These measure up to 2.4 cm in segment 6. SPLEEN: Spleen is borderline enlarged measuring up to 12.2 cm. PANCREAS: Grossly unremarkable. KIDNEYS: Contour abnormality involving the superior pole of the right kidney with apparent cortical calcifications corresponding to scarring on prior exam. There is a Small 1.4 cm cystic lesion which i s too small to fully characterize. There is also 1.6 cm cyst in the left mid kidney. No radiopaque re nal calculi or hydronephrosis. ADRENAL GLANDS: Stable small subcentimeter left adrenal mass with indeterminate density. AORTA: Diffuse atherosclerotic calcifications involving the aorta and mesenteric/renal arteries. Aort a is nonaneurysmal. BOWEL/MESENTERY: Evaluation is somewhat limited due to motion artifact. Mild sigmoid diverticulosis without evidence for diverticulitis. There is a moderate amount stool noted in the proximal 1 transve rse colon. No dilatation of small bowel loops. No gross free air or pneumatosis. No significant free fluid or drainable fluid collections. Small subcentimeter mesenteric nodule in the right upper quadra nt anteriorly, new from prior exam. ABDOMINAL WALL: Small periumbilical hernia containing a portion of normal-appearing transverse colon . BLADDER: Distended but otherwise unremarkable. REPRODUCTIVE: Specific prominence of the prostate gland. BONY STRUCTURES: No abnormal lytic or blastic bony lesions. Degenerative spondylosis of the lower gillian mbar spine. CONCLUSION: 1. Cirrhotic appearing liver with numerous bilobar hepatic masses measuring up to 2.4 cm. Differenti al considerations include metastatic disease versus bilobar hepatocellular carcinoma. 2. New subcentimeter mesenteric nodule in the anterior right upper quadrant. Although nonspecific, m esenteric metastasis cannot be excluded. 3. Moderate stool in the ascending and transverse colon consistent with some degree of constipation . 4. Mild distention of the bladder with nonspecific prostate enlargement. This may reflect some degre e of bladder outlet obstruction. 5. Sigmoid diverticulosis without evidence for diverticulitis. 6. Stable additional ancillary findings, as above. Electronically signed by: Max Bennett MD 10/21/2018 2:11 PM EST
--- NOTE | 2018-10-21 17:01 | US ---
EXAM DATE: 10/21/2018 4:17 PM EST AGE/SEX: 83 years / Female INDICATIONS: Abnormal labs. CLINICAL DATA: This is the patient's initial encounter. Patient reports that signs and symptoms have been present for 1 day and indicates a pain score of 0/10. MEDICAL/SURGICAL HISTORY: Cirrhosis. Diabetes. Myocardial infarction. Atrial fibrillation. C oronary artery disease. CHF. CKD. Hep C. HTN. COPD. Cholecystectomy. Heart stent. Pacemaker. COMPARISON: [facility] – [place], [place], CT ABDOMEN & PELVIS W/O CONTRAST, 10/21/2018. . MEASUREMENTS: Liver:__ 12.5 cm. Common Bile Duct:___ 9mm. Right Kidney:___9.2 x 4.7 x 4.2 cm. Left Kidney:___9.6 x 4.1 x 3.8 cm. Spleen:___14.9 cm. FINDINGS: Liver: Chronic appearing liver with diffusely coarse echotexture. Hepatic masses noted on CT exam ar e not well demonstrated on ultrasound. Portal Vein: Hepatopedal flow seen in portal vein. Common Duct: No intraluminal mass or stone visualized. Gallbladder: Surgically absent. Pancreas: The visualized portions are within normal limits Right Kidney: 1.1 x 1.5 x 1.4 cm cyst in the superior pole. Subcentimeter cyst in the midpole. No hy dronephrosis or calculus. Left Kidney: 8 x 7 x 7 mm cyst in the superior pole. 1.6 x 1.4 x 1.67 m cyst in the posterior. No hy dronephrosis or calculus. Ascites: None Pleural Effusion: Right Spleen: No focal lesion. Aorta: Non aneurysmal. IVC: Within normal limits Other: None. CONCLUSION: 1. Cirrhotic liver. Hepatic masses noted on CT exam are not well demonstrated on ultrasound. Again, Eovist MRI examination may be performed for further evaluation. 2. Bilateral renal cysts. Electronically signed by: Max Bennett MD 10/21/2018 4:59 PM EST
[2018-10-21] MEDS: Sucralfate 1 GM Tablet PO SCH ×3 (17:24→23:37)
[2018-10-21] MEDS: dilTIAZem CD 180 MG Capsule PO SCH ×2 (17:26)
[2018-10-21] MEDS: Insulin NovoLOG Aspart Correctional Sugar Inj SQ SCH ×2 (17:36→20:36)
[2018-10-21] MEDS ORDERED: dilTIAZem Inj 125 MG in Sodium Chlor 0.9% Inj 100 ML IV.CONT PRN (19:45)
[2018-10-21] MEDS: Senna/Docusate Sodium 8.6/50 MG Tablet PO SCH (20:01)
[2018-10-21] MEDS: Budesonide-Formoterol 160/4.5 MCG 6 GM Inhaler INH SCH (20:36)
[2018-10-21] MEDS ORDERED: ARFORMOTEROL 15 MCG/2 ML INH SCH (21:00)
[2018-10-22] MEDS: Chlorhexidine Gluconate 2% 1 Pack (2 Cloths) TOPICAL SCH (03:34)
[2018-10-22] MEDS ORDERED: Chlorhexidine Gluconate 2% 1 Pack (2 Cloths) TOPICAL PRN (04:00)
[2018-10-22] MEDS: Levothyroxine 125 MCG Tablet PO SCH (05:21)
[2018-10-22] MEDS: Sucralfate 1 GM Tablet PO SCH ×4 (05:21→23:08)
[2018-10-22 05:51] LABS: Baso % (Auto) 0.4 % (0.0-2.0); Eos # (Auto) 0.1 th/mm3 (0.0-0.4); Eos % (Auto) 0.6 % (0.0-4.0); Lymph # (Auto) 1.9 th/mm3 (1.0-4.8); Lymph % (Auto) 16.4 % (9.0-44.0); Mean Corpuscular HGB Conc 34.9 % (32.0-36.0); Mean Corpuscular Hemoglobin 29.5 pg (27.0-34.0); Mean Corpuscular Volume 84.6 fL (80.0-100.0); Mean Platelet Volume 9.6 fL (7.0-11.0); Mono # (Auto) 1.5 th/mm3 (0.0-0.9); Mono % (Auto) 13.4 % (0.0-8.0); Neut # (Auto) 7.9 th/mm3 (1.8-7.7); Neut % (Auto) 69.2 % (16.0-70.0); Platelet Count 73 th/mm3 (150-450); Red Blood Count 2.33 mil/mm3 (4.00-5.30); Red Cell Distribution Width 14.3 % (11.6-17.2); White Blood Count 11.4 th/mm3 (4.0-11.0)
[2018-10-22 06:13] LABS: Alanine Aminotransferase 24 U/L (10-53); Albumin 2.9 g/dL (3.4-5.0); Anion Gap 7 meq/L (5-15); Aspartate Aminotransferase 40 U/L (15-37); Blood Urea Nitrogen 18 mg/dL (7-18); Calcium 8.3 mg/dL (8.5-10.1); Carbon Dioxide 31.3 meq/L (21.0-32.0); Chloride 101 meq/L (98-107); Glomerular Filtration Rate 41 mL/min (>89); Glucose,Random 127 mg/dL (74-106); Potassium 3.3 meq/L (3.5-5.1); Sodium 139 meq/L (136-145)
[2018-10-22 06:15] LABS: Alkaline Phosphatase 77 U/L (45-117); Total Protein 7.8 g/dL (6.4-8.2)
[2018-10-22 07:08] LABS: Hematocrit 19.7 % (35.0-46.0); Hemoglobin 6.9 gm/dL (11.6-15.3)
[2018-10-22] MEDS: Insulin NovoLOG Aspart Correctional Sugar Inj SQ SCH ×4 (07:40→20:28)
[2018-10-22] MEDS ORDERED: Sodium Chlor 0.9% Inj 250 ML IV.SIG SCH (08:00)
[2018-10-22] MEDS: Ferrous Sulfate 325 MG Tablet PO SCH (08:12)
[2018-10-22] MEDS: Senna/Docusate Sodium 8.6/50 MG Tablet PO SCH ×2 (08:12→20:22)
[2018-10-22] MEDS: dilTIAZem CD 180 MG Capsule PO SCH ×3 (08:12→17:57)
[2018-10-22] MEDS: Budesonide-Formoterol 160/4.5 MCG 6 GM Inhaler INH SCH ×2 (08:12→20:22)
[2018-10-22] MEDS: Famotidine 20 MG Tablet PO SCH (08:12)
[2018-10-22] MEDS ORDERED: (Insulin Degludec [Tresiba Flextouch U-100] 20 UNIT) SQ SCH (09:00)
[2018-10-22 10:08] LABS: Blast Cells 1 % (0-0); Eosinophils 1 % (0-4); Lymphocytes 15 % (9-44); Metamyelocytes 1 % (0-1); Monocytes 3 % (0-8); Myelocytes 1 % (0-0); Ovalocytes 1+; Platelet Morphology Normal (Normal); Tallied Nucleated RBC 4 (0-0)
--- NOTE | 2018-10-22 11:38 | P.PNIM ---
Subjective Interval history: Respiratory distress yesterday. Patient transferred to ICU for BiPAP and she was also found to be in RVR so Cardizem drip initiated. Heart rate has improved overnight. Transitioning back to p.o. Cardizem and if she tolerates wean off IV Cardizem will transfer out of ICU today. No further respiratory distress. CBC shows a downward trend in hemoglobin with current hemoglobin at 6.9. Blood transfusion ordered, family determining if they want this for her, so transfusion on hold until family makes a decision. Physical Exam Vital signs: Vital Signs 10/21/18 16:00 10/21/18 20:00 10/21/18 21:27 Temperature 98.9 F Pulse Rate 120 H 131 H 94 H Respiratory Rate 23 20 Blood Pressure 157/71 H Pulse Oximetry 92 L 94 L 10/21/18 22:00 10/22/18 00:00 10/22/18 02:00 Temperature 98.4 F Pulse Rate 101 H 90 97 H Respiratory Rate 23 Blood Pressure 160/80 H Pulse Oximetry 97 10/22/18 04:00 10/22/18 06:00 10/22/18 08:32 Temperature 99 F Pulse Rate 95 H 100 H 105 H Respiratory Rate 21 19 Blood Pressure 160/81 H Pulse Oximetry 97 96 Intake & Output 10/21/18 10/22/18 10/22/18 18:59 06:59 18:59 Intake Total 200 / 200 Output Total 250 / 250 Balance -50 / -50 Weight 50.802 kg 53.7 kg Intake: Oral 200 / 200 Output: Urine 250 / 250 Other: # Voids 1 Date of Last Bowel Movement 10/21/18 # Incontinent Bowel Movements 1 Narrative: GENERAL: NAD, A&Ox3 HEAD: Normocephalic. NECK: Supple, trachea midline. No lymphadenopathy. EYES: No scleral icterus. No injection or drainage. CARDIOVASCULAR: Regular rate and rhythm without murmurs, gallops, or rubs. RESPIRATORY: Breath sounds equal bilaterally. No accessory muscle use. Crackles at bases bilaterally. GASTROINTESTINAL: Abdomen soft, non-tender, nondistended. MUSCULOSKELETAL: No cyanosis, or edema. SKIN: Warm and dry. NEURO: No focal neurological deficits. Results - Labs CBC & Chem 7: 10/22/18 04:13 10/22/18 04:13 Laboratory Results - last 24 hr 10/21/18 10/21/18 10/21/18 17:35 18:49 19:58 WBC RBC Hgb Hct MCV MCH MCHC RDW Plt Count MPV Prelim Diff (Auto) Neut % (Auto) Lymph % (Auto) Benson % (Auto) Eos % (Auto) Baso % (Auto) Neut # (Auto) Lymph # (Auto) Benson # (Auto) Eos # (Auto) Baso # (Auto) WBC Differential Seg Neuts % (Manual) Band Neuts % (Manual) Lymphocytes % (Manual) Monocytes % (Manual) Eosinophils % (Manual) Metamyelocytes % (Man) Myelocytes % (Man) Blast Cells % (Manual) Abs Neuts (Manual) Nucleated RBCs/100 WBC Differential Comment Platelet Estimate Platelet Morphology Ovalocytes Sodium Potassium Chloride Carbon Dioxide Anion Gap BUN Creatinine Estimated GFR POC Glucose 145 H 176 H 174 H Random Glucose Calcium Total Bilirubin AST ALT Alkaline Phosphatase Total Protein Albumin Nasal Screen MRSA (PCR) Blood Type Antibody Screen MTS Gel Crossmatch 10/21/18 10/22/18 10/22/18 20:00 04:13 04:13 WBC 11.4 H RBC 2.33 L Hgb 6.9 L* Hct 19.7 L* MCV 84.6 MCH 29.5 MCHC 34.9 RDW 14.3 Plt Count 73 L MPV 9.6 Prelim Diff (Auto) Slide review pending Neut % (Auto) 69.2 Lymph % (Auto) 16.4 Benson % (Auto) 13.4 H Eos % (Auto) 0.6 Baso % (Auto) 0.4 Neut # (Auto) 7.9 H Lymph # (Auto) 1.9 Benson # (Auto) 1.5 H Eos # (Auto) 0.1 Baso # (Auto) 0.0 WBC Differential Manual diff final Seg Neuts % (Manual) 73 H Band Neuts % (Manual) 5 Lymphocytes % (Manual) 15 Monocytes % (Manual) 3 Eosinophils % (Manual) 1 Metamyelocytes % (Man) 1 Myelocytes % (Man) 1 H Blast Cells % (Manual) 1 H Abs Neuts (Manual) 9.1 H Nucleated RBCs/100 WBC 4 H Differential Comment . Platelet Estimate Low L Platelet Morphology Normal Ovalocytes 1+ H Sodium 139 Potassium 3.3 L Chloride 101 Carbon Dioxide 31.3 Anion Gap 7 BUN 18 Creatinine 1.25 H Estimated GFR 41 L POC Glucose Random Glucose 127 H Calcium 8.3 L Total Bilirubin 1.0 AST 40 H ALT 24 Alkaline Phosphatase 77 Total Protein 7.8 D Albumin 2.9 L Nasal Screen MRSA (PCR) Not detected Blood Type Antibody Screen MTS Gel Crossmatch 10/22/18 10/22/18 10/22/18 07:32 08:14 11:29 WBC RBC Hgb Hct MCV MCH MCHC RDW Plt Count MPV Prelim Diff (Auto) Neut % (Auto) Lymph % (Auto) Benson % (Auto) Eos % (Auto) Baso % (Auto) Neut # (Auto) Lymph # (Auto) Benson # (Auto) Eos # (Auto) Baso # (Auto) WBC Differential Seg Neuts % (Manual) Band Neuts % (Manual) Lymphocytes % (Manual) Monocytes % (Manual) Eosinophils % (Manual) Metamyelocytes % (Man) Myelocytes % (Man) Blast Cells % (Manual) Abs Neuts (Manual) Nucleated RBCs/100 WBC Differential Comment Platelet Estimate Platelet Morphology Ovalocytes Sodium Potassium Chloride Carbon Dioxide Anion Gap BUN Creatinine Estimated GFR POC Glucose 153 H 161 H Random Glucose Calcium Total Bilirubin AST ALT Alkaline Phosphatase Total Protein Albumin Nasal Screen MRSA (PCR) Blood Type O Positive Antibody Screen Negative MTS Gel Crossmatch See Detail - Imaging Impressions Abdomen Ultrasound 10/21/18 00:00 CONCLUSION: 1. Cirrhotic liver. Hepatic masses noted on CT exam are not well demonstrated on ultrasound. Again, Eovist MRI examination may be performed for further evaluation. 2. Bilateral renal cysts. Abdomen/Pelvis CT 10/21/18 00:00 CONCLUSION: 1. Cirrhotic appearing liver with numerous bilobar hepatic masses measuring up to 2.4 cm. Differential considerations include metastatic disease versus bilobar hepatocellular carcinoma. 2. New subcentimeter mesenteric nodule in the anterior right upper quadrant. Although nonspecific, mesenteric metastasis cannot be excluded. 3. Moderate stool in the ascending and transverse colon consistent with some degree of constipation. 4. Mild distention of the bladder with nonspecific prostate enlargement. This may reflect some degree of bladder outlet obstruction. 5. Sigmoid diverticulosis without evidence for diverticulitis. 6. Stable additional ancillary findings, as above. Assessment and Plan - Plan 83-year-old female admitted secondary to acute respiratory distress with acute on chronic respiratory failure A. fib RVR Patient had missed diltiazem p.o. dosings x2 P.o. diltiazem was resumed IV diltiazem drip present currently and will be weaned off as tolerated Acute blood loss anemia Screen for GI bleed 2 units packed red blood cells ordered on 10/22/2018, family deciding if this will be provided Eliquis held Acute respiratory failure Chronic respiratory failure Leukocytosis Continue oxygen supplementation Treat with diuretic as below Monitor for return to baseline Leukocytosis may be reactive, no evidence of pneumonia If leukocytosis increases antibiotics could be considered At last admit patient needed to use Linezolid to treat her pneumonia because of her diverse antibiotic allergy profile Systolic CHF exacerbation At baseline patient takes 0.5 mg of Bumex twice daily, this will be increased to 1 mg p.o. Bumex twice daily Follow renal function during this treatment Follow clinically for improvement in respiratory status Moderate right-sided pleural effusion Potential need for thoracentesis, especially if diuretics do not improve her respiratory state Eliquis will have to be held if thoracentesis is needed Liver masses Mediastinal lymphadenopathy Things are discussed with the patient, she is apprehensive about biopsy Further imaging with abdominal ultrasound Further imaging with abdomen/pelvis CT scan Possibility of another area abdomen the liver for biopsy may be found on imaging if masses are confirmed with these other studies will discuss biopsy further Eliquis will have to be held if biopsy is needed Acute kidney injury Provide diuretics as listed above Follow renal function Avoid nephrotoxins Diabetes mellitus type 2 Follow blood sugars Insulin sliding scale Diabetic diet Afib Pacemaker Coronary artery disease History of myocardial infarction Follow on telemetry Eliquis held as above No chest pain Continue diltiazem COPD No evidence of exacerbation when seen Monitor for evidence of exacerbation As needed albuterol Continue baseline treatments Continue oxygen supplementation Cirrhosis Avoid alcohol Avoid Tylenol Hepatitis C Standard precautions Hypertension Continue baseline treatment Follow blood pressures Adjust treatments as needed DVT prophylaxis SCDs Eliquis held due to blood loss
[2018-10-23] MEDS ORDERED: dilTIAZem Inj 125 MG in Sodium Chlor 0.9% Inj 100 ML IV.CONT PRN (03:22)
[2018-10-23] MEDS ORDERED: Morphine Sulfate Inj 2 MG/ML Vial IV.PUSH ONE (03:24)
[2018-10-23 06:00] LABS: Baso % (Auto) 0.1 % (0.0-2.0); Eos % (Auto) 0.2 % (0.0-4.0); Hematocrit 29.3 % (35.0-46.0); Hemoglobin 10.1 gm/dL (11.6-15.3); Lymph # (Auto) 1.1 th/mm3 (1.0-4.8); Mean Corpuscular HGB Conc 34.6 % (32.0-36.0); Mean Corpuscular Hemoglobin 29.7 pg (27.0-34.0); Mean Platelet Volume 9.3 fL (7.0-11.0); Mono # (Auto) 1.4 th/mm3 (0.0-0.9); Mono % (Auto) 13.4 % (0.0-8.0); Neut # (Auto) 7.8 th/mm3 (1.8-7.7); Neut % (Auto) 75.3 % (16.0-70.0); Platelet Count 78 th/mm3 (150-450); Red Blood Count 3.41 mil/mm3 (4.00-5.30); Red Cell Distribution Width 14.9 % (11.6-17.2); White Blood Count 10.3 th/mm3 (4.0-11.0)
[2018-10-23] MEDS: Chlorhexidine Gluconate 2% 1 Pack (2 Cloths) TOPICAL SCH (06:10)
[2018-10-23 06:20] LABS: Alanine Aminotransferase 22 U/L (10-53); Anion Gap 9 meq/L (5-15); Aspartate Aminotransferase 35 U/L (15-37); Blood Urea Nitrogen 25 mg/dL (7-18); Calcium 8.1 mg/dL (8.5-10.1); Carbon Dioxide 28.6 meq/L (21.0-32.0); Chloride 98 meq/L (98-107); Glomerular Filtration Rate 33 mL/min (>89); Glucose,Random 228 mg/dL (74-106); Magnesium 1.4 mg/dL (1.5-2.5); Potassium 4.2 meq/L (3.5-5.1); Sodium 136 meq/L (136-145)
[2018-10-23 06:28] LABS: Alkaline Phosphatase 75 U/L (45-117); Phosphorus 3.8 mg/dL (2.5-4.9)
[2018-10-23] MEDS ORDERED: Mag Sulf 1 gm/100 ml Premix 100 ML IV.SIG ONE (06:37)
[2018-10-23 08:40] LABS: Lymphocytes 6 % (9-44); Metamyelocytes 3 % (0-1); Monocytes 12 % (0-8); Myelocytes 6 % (0-0); Ovalocytes 1+; Platelet Morphology Normal (Normal); Tallied Nucleated RBC 3 (0-0)
[2018-10-23 08:41] LABS: Polychromasia 2.6 % (0.0-1.9)
[2018-10-23] MEDS: Levothyroxine 125 MCG Tablet PO SCH (08:57)
[2018-10-23] MEDS: Sucralfate 1 GM Tablet PO SCH ×3 (08:57→17:07)
[2018-10-23] MEDS: dilTIAZem CD 180 MG Capsule PO SCH ×2 (08:57→12:59)
[2018-10-23] MEDS: Senna/Docusate Sodium 8.6/50 MG Tablet PO SCH ×2 (08:57→21:26)
[2018-10-23] MEDS: Famotidine 20 MG Tablet PO SCH (08:58)
[2018-10-23] MEDS: Ferrous Sulfate 325 MG Tablet PO SCH (08:58)
[2018-10-23] MEDS: Budesonide-Formoterol 160/4.5 MCG 6 GM Inhaler INH SCH ×2 (08:59→21:26)
[2018-10-23] MEDS: Insulin NovoLOG Aspart Correctional Sugar Inj SQ SCH ×4 (08:59→21:26)
[2018-10-23] MEDS ORDERED: Digoxin 125 MCG Tablet PO SCH (09:00)
--- NOTE | 2018-10-23 13:24 | P.PN ---
Subjective Interval history: Follow-up for right-sided pleural effusion, respiratory failure, atrial fibrillation. Patient is currently on BiPAP. She does not speak much Greek. She denies any acute chest pain, fever or chills. Physical Exam Vital signs: Vital Signs 10/22/18 13:15 10/22/18 13:30 10/22/18 13:45 Temperature Pulse Rate 96 H 98 H 99 H Respiratory Rate 35 H 33 H 34 H Blood Pressure 151/73 H 152/67 H 135/52 L Pulse Oximetry 95 94 L 91 L 10/22/18 14:00 10/22/18 14:15 10/22/18 14:30 Temperature Pulse Rate 95 H 94 H 96 H Respiratory Rate 32 H 32 H 32 H Blood Pressure 137/62 129/65 137/74 Pulse Oximetry 96 97 97 10/22/18 14:45 10/22/18 15:00 10/22/18 15:15 Temperature Pulse Rate 98 H 94 H 99 H Respiratory Rate 32 H 35 H 31 H Blood Pressure 143/70 H 137/84 153/72 H Pulse Oximetry 97 97 98 10/22/18 15:30 10/22/18 15:45 10/22/18 16:00 Temperature Pulse Rate 98 H 98 H 99 H Respiratory Rate 31 H 33 H 32 H Blood Pressure 149/69 H 143/71 H 145/70 H Pulse Oximetry 96 98 98 10/22/18 16:15 10/22/18 16:30 10/22/18 16:45 Temperature Pulse Rate 103 H 105 H 106 H Respiratory Rate 32 H 36 H 28 H Blood Pressure 141/72 H 151/74 H 139/75 Pulse Oximetry 94 L 94 L 93 L 10/22/18 17:00 10/22/18 17:15 10/22/18 17:31 Temperature Pulse Rate 106 H 102 H 103 H Respiratory Rate 33 H 31 H 32 H Blood Pressure 156/82 H 143/81 H 156/76 H Pulse Oximetry 95 94 L 96 10/22/18 17:50 10/22/18 18:00 10/22/18 18:15 Temperature Pulse Rate 111 H 112 H 116 H Respiratory Rate 31 H 43 H 43 H Blood Pressure 146/73 H 168/79 H 177/79 H Pulse Oximetry 95 96 93 L 10/22/18 18:17 10/22/18 18:30 10/22/18 18:45 Temperature 99.0 F Pulse Rate 115 H 117 H 124 H Respiratory Rate 21 35 H 35 H Blood Pressure 177/79 H 156/74 H 172/77 H Pulse Oximetry 96 97 10/22/18 19:00 10/22/18 19:15 10/22/18 19:30 Temperature Pulse Rate 119 H 119 H 122 H Respiratory Rate 32 H 34 H 34 H Blood Pressure 155/74 H 149/91 H 157/97 H Pulse Oximetry 96 96 97 10/22/18 19:45 10/22/18 20:00 10/22/18 20:15 Temperature Pulse Rate 127 H 133 H 117 H Respiratory Rate 38 H 28 H 24 Blood Pressure 176/83 H 177/95 H 147/91 H Pulse Oximetry 95 96 95 10/22/18 20:30 10/22/18 20:31 10/22/18 20:45 Temperature Pulse Rate 116 H 116 H 120 H Respiratory Rate 30 H 27 H 29 H Blood Pressure 160/101 H 149/76 H 153/81 H Pulse Oximetry 95 95 97 10/22/18 21:00 10/22/18 21:15 10/22/18 21:30 Temperature Pulse Rate 108 H 111 H 102 H Respiratory Rate 31 H 34 H 31 H Blood Pressure 162/84 H 152/80 H 151/77 H Pulse Oximetry 97 97 97 10/22/18 21:45 10/22/18 22:00 10/22/18 22:15 Temperature Pulse Rate 111 H 105 H 99 H Respiratory Rate 33 H 33 H 30 H Blood Pressure 156/91 H 149/82 H 149/76 H Pulse Oximetry 96 97 96 10/22/18 22:18 10/22/18 22:30 10/22/18 22:45 Temperature 99.4 F Pulse Rate 92 H 99 H 101 H Respiratory Rate 28 H 27 H 33 H Blood Pressure 149/78 H 152/74 H 162/92 H Pulse Oximetry 96 95 10/22/18 23:00 10/22/18 23:07 10/22/18 23:33 Temperature 99.0 F Pulse Rate 100 H 106 H 99 H Respiratory Rate 37 H 34 H 33 H Blood Pressure 137/99 H 146/83 H Pulse Oximetry 93 L 94 L 10/23/18 00:00 10/23/18 00:30 10/23/18 01:00 Temperature Pulse Rate 99 H 105 H 105 H Respiratory Rate 34 H 33 H 36 H Blood Pressure 164/77 H 161/83 H 160/94 H Pulse Oximetry 96 95 94 L 10/23/18 01:31 10/23/18 01:34 10/23/18 01:40 Temperature Pulse Rate 126 H 129 H Respiratory Rate 38 H 37 H Blood Pressure 191/87 H 190/81 H Pulse Oximetry 90 L 92 L 95 10/23/18 02:00 10/23/18 02:30 10/23/18 03:02 Temperature Pulse Rate 102 H 105 H 120 H Respiratory Rate 30 H 29 H 35 H Blood Pressure 139/79 153/77 H 146/93 H Pulse Oximetry 92 L 96 96 10/23/18 03:03 10/23/18 03:30 10/23/18 04:00 Temperature Pulse Rate 119 H 107 H 94 H Respiratory Rate 33 H 35 H 20 Blood Pressure 161/89 H 159/77 H 145/70 H Pulse Oximetry 95 95 91 L 10/23/18 04:07 10/23/18 04:32 10/23/18 05:00 Temperature Pulse Rate 91 H 88 Respiratory Rate 20 19 Blood Pressure 143/68 H 142/73 H Pulse Oximetry 95 94 L 95 10/23/18 05:30 10/23/18 05:46 10/23/18 07:50 Temperature Pulse Rate 89 83 83 Respiratory Rate 19 18 17 Blood Pressure 143/103 H 150/87 H Pulse Oximetry 96 97 97 10/23/18 08:00 10/23/18 10:04 Temperature 98.3 F Pulse Rate 88 Respiratory Rate 35 H Blood Pressure 148/73 H Pulse Oximetry 95 93 L Intake & Output 10/22/18 10/23/18 10/23/18 18:59 06:59 18:59 Intake Total 735 / 735 400 / 400 111 / 111 Output Total 1200 / 1200 250 / 250 Balance -465 / -465 150 / 150 111 / 111 Weight 54 kg Intake: IV 125 / 125 100 / 100 111 / 111 Cardizem Inj 125 MG In NS Inj 125 / 125 100 ML @ 5 MG/HR 5 mls/hr IV. CONT TITRATE PRN Rx#:[id number] Magnesium Sulfate 1 gm/D5W 100 85 / 85 ml Premix 100 ML @ 100 mls/hr IV.SIG ONCE ONE Rx#:[id number] NS Inj 250 ML @ 15 mls/hr IV. 100 / 100 SIG ONCE SHAKIRA Rx#:[id number] Oral 610 / 610 300 / 300 Intake (Blood Product) Amt 0 / 0 0 / 0 Rbc As-3 Leukoreduced Unit 0 / 0 [id number] Rbc As-3 Leukoreduced Unit 0 / 0 [id number] Output: Urine 1200 / 1200 250 / 250 Other: Date of Last Bowel Movement 10/22/18 10/21/18 10/21/18 Narrative: GENERAL: Alert, NAD. Currently on BiPAP machine. SKIN: Warm and dry. HEAD: Normocephalic. EYES: No scleral icterus. No injection or drainage. NECK: Supple, trachea midline. No JVD or lymphadenopathy. CARDIOVASCULAR: Regular rate and rhythm without murmurs, gallops, or rubs. RESPIRATORY: moderate air entry, significantly decreased breath sound on the right basilar area. No accessory muscle use. GASTROINTESTINAL: Abdomen soft, non-tender, nondistended. MUSCULOSKELETAL: No cyanosis, or edema. BACK: Nontender without obvious deformity. No CVA tenderness. Results - Labs CBC & Chem 7: 10/23/18 04:24 10/23/18 04:24 Laboratory Results - last 24 hr 10/22/18 10/22/18 10/22/18 04:13 08:14 16:20 WBC RBC Hgb Hct MCV MCH MCHC RDW Plt Count MPV Prelim Diff (Auto) Neut % (Auto) Lymph % (Auto) Lake % (Auto) Eos % (Auto) Baso % (Auto) Neut # (Auto) Lymph # (Auto) Lake # (Auto) Eos # (Auto) Baso # (Auto) WBC Differential Seg Neuts % (Manual) Band Neuts % (Manual) Lymphocytes % (Manual) Monocytes % (Manual) Basophils % (Manual) Metamyelocytes % (Man) Myelocytes % (Man) Abs Neuts (Manual) Nucleated RBCs/100 WBC Differential Comment Platelet Estimate Platelet Morphology Polychromasia Ovalocytes Sodium Potassium Chloride Carbon Dioxide Anion Gap BUN Creatinine Estimated GFR POC Glucose 135 H Random Glucose Calcium Phosphorus Magnesium 1.3 L Total Bilirubin AST ALT Alkaline Phosphatase Total Protein Albumin Blood Type O Positive Antibody Screen Negative MTS Gel Crossmatch See Detail 10/22/18 10/23/18 10/23/18 20:27 04:24 04:24 WBC 10.3 RBC 3.41 L Hgb 10.1 L D Hct 29.3 L MCV 86.0 MCH 29.7 MCHC 34.6 RDW 14.9 Plt Count 78 L MPV 9.3 Prelim Diff (Auto) Slide review pending Neut % (Auto) 75.3 H Lymph % (Auto) 11.0 Lake % (Auto) 13.4 H Eos % (Auto) 0.2 Baso % (Auto) 0.1 Neut # (Auto) 7.8 H Lymph # (Auto) 1.1 Lake # (Auto) 1.4 H Eos # (Auto) 0.0 Baso # (Auto) 0.0 WBC Differential Manual diff final Seg Neuts % (Manual) 70 Band Neuts % (Manual) 2 Lymphocytes % (Manual) 6 L Monocytes % (Manual) 12 H Basophils % (Manual) 1 Metamyelocytes % (Man) 3 H Myelocytes % (Man) 6 H Abs Neuts (Manual) 8.3 H Nucleated RBCs/100 WBC 3 H Differential Comment . Platelet Estimate Low L Platelet Morphology Normal Polychromasia 2.6 H Ovalocytes 1+ H Sodium 136 Potassium 4.2 D Chloride 98 Carbon Dioxide 28.6 Anion Gap 9 BUN 25 H Creatinine 1.49 H Estimated GFR 33 L POC Glucose 160 H Random Glucose 228 H D Calcium 8.1 L Phosphorus 3.8 Magnesium 1.4 L Total Bilirubin 3.9 H AST 35 ALT 22 Alkaline Phosphatase 75 Total Protein 8.0 Albumin 3.0 L Blood Type Antibody Screen MTS Gel Crossmatch 10/23/18 10/23/18 08:12 12:06 WBC RBC Hgb Hct MCV MCH MCHC RDW Plt Count MPV Prelim Diff (Auto) Neut % (Auto) Lymph % (Auto) Lake % (Auto) Eos % (Auto) Baso % (Auto) Neut # (Auto) Lymph # (Auto) Lake # (Auto) Eos # (Auto) Baso # (Auto) WBC Differential Seg Neuts % (Manual) Band Neuts % (Manual) Lymphocytes % (Manual) Monocytes % (Manual) Basophils % (Manual) Metamyelocytes % (Man) Myelocytes % (Man) Abs Neuts (Manual) Nucleated RBCs/100 WBC Differential Comment Platelet Estimate Platelet Morphology Polychromasia Ovalocytes Sodium Potassium Chloride Carbon Dioxide Anion Gap BUN Creatinine Estimated GFR POC Glucose 251 H 294 H Random Glucose Calcium Phosphorus Magnesium Total Bilirubin AST ALT Alkaline Phosphatase Total Protein Albumin Blood Type Antibody Screen MTS Gel Crossmatch Microbiology 10/22/18 17:45 Stool Stool Occult Blood ([place]ORDON) - Final Hemoccult positive - Imaging Abdomen Ultrasound 10/21/18 00:00 CONCLUSION: 1. Cirrhotic liver. Hepatic masses noted on CT exam are not well demonstrated on ultrasound. Again, Eovist MRI examination may be performed for further evaluation. 2. Bilateral renal cysts. Abdomen/Pelvis CT 10/21/18 00:00 CONCLUSION: 1. Cirrhotic appearing liver with numerous bilobar hepatic masses measuring up to 2.4 cm. Differential considerations include metastatic disease versus bilobar hepatocellular carcinoma. 2. New subcentimeter mesenteric nodule in the anterior right upper quadrant. Although nonspecific, mesenteric metastasis cannot be excluded. 3. Moderate stool in the ascending and transverse colon consistent with some degree of constipation. 4. Mild distention of the bladder with nonspecific prostate enlargement. This may reflect some degree of bladder outlet obstruction. 5. Sigmoid diverticulosis without evidence for diverticulitis. 6. Stable additional ancillary findings, as above. Chest CT 10/21/18 10:07 CONCLUSION: 1. Bilateral pleural effusions being moderate on the right and mild on the left. 2. Bibasilar areas of consolidation or atelectasis being worse in the right. There is also some involvement in the right middle lobe. 3. Nonspecific enlarged symptoms in the mediastinum. 4. Cirrhotic liver with what appear to be multiple masses. Chest X-Ray 10/21/18 10:07 CONCLUSION: Pleural and parenchymal changes at the right base with consolidation/ atelectasis and a right pleural effusion. Blunting of the costophrenic angle on the left likely related to a mild left effusion. Prominent interstitium which may represent underlying edema. - Procedures None Assessment and Plan - Plan Ms. Ortiz is a pleasant 3-year-old female who was admitted to the hospital due to respiratory distress. She has a history of CHF, COPD and currently has oxygen at home. Due to worsening of her respiratory status, patient was transferred to ICU and was placed on BiPAP. Imaging studies showed right-sided pleural effusion as well as liver masses. Patient is apprehensive about undergoing liver biopsy. A. fib RVR When of diltiazem drip and continue diltiazem 180 mg p.o. daily. Discontinue metoprolol succinate and start carvedilol 6.25 mg p.o. twice daily. Patient is on apixaban 2.5 mg p.o. twice daily which is currently on hold due to possible thoracentesis today. Continue digoxin 125 mcg p.o. every other day. Acute blood loss anemia Apixaban held. Status post 2 units of PRBCs administration. Currently hemoglobin 10.1. Acute respiratory failure Chronic respiratory failure Moderate right-sided pleural effusion Continue oxygen supplementation Leukocytosis may be reactive, no evidence of pneumonia We will obtain ultrasound-guided thoracentesis of the right pleural effusion. Systolic CHF exacerbation Continue Bumex 1 mg p.o. twice daily. Liver masses Mediastinal lymphadenopathy Things are discussed with the patient, she is apprehensive about biopsy We consulted palliative care to determine patient's and family's desire to proceed with any kind of biopsy. Acute kidney injury On admission creatinine 1.75. Currently 1.49. This could be due to diuretics use. Diabetes mellitus type 2 Currently on sliding scale insulin. Will add low-dose Levemir. 7 units of Levemir nightly COPD No evidence of exacerbation when seen Monitor for evidence of exacerbation As needed albuterol Continue baseline treatments Continue oxygen supplementation Hypertension Carvedilol may decrease blood pressure somewhat. Will observe. If needed, will consider calcium channel julita such as amlodipine. DVT prophylaxis SCDs Eliquis held due to blood loss as well as thoracentesis.
--- NOTE | 2018-10-23 14:15 | XR ---
EXAM DATE: 10/23/2018 2:11 PM EST AGE/SEX: 83 years / Female INDICATIONS: Post right thoracentesis. CLINICAL DATA: This is the patient's subsequent encounter. Patient reports that signs and symptoms h ave been present for 3 days and indicates a pain score of 3/10. MEDICAL/SURGICAL HISTORY: . Congestive heart failure. Hepatitis C. Diabetes mellitus type II. A -fib. Coronary artery disease. Chronic kidney disease. COPD. Hypertension. Myocardial infarction. Ast hma. Pacemaker. COMPARISON: [facility] – [place], CHEST 1V SINGLE AP, 10/21/2018. . FINDINGS: Significant interval reduction in right pleural effusion. No evidence of pneumothorax. Persistent bib asilar consolidation and effusion with central vascular congestion. Visualized cardiac contours are u nchanged. A pacing implement is present with control pack over left upper chest. CONCLUSION: No pneumothorax Electronically signed by: Ismael Bee MD 10/23/2018 2:14 PM EST
--- NOTE | 2018-10-23 14:35 | US ---
EXAM DATE: 10/23/2018 2:20 PM EST AGE/SEX: 83 years / Female INDICATIONS: Right pleural effusion. CLINICAL DATA: This is the patient's initial encounter. Patient reports that signs and symptoms have been present for 1 day and indicates a pain score of 0/10. MEDICAL/SURGICAL HISTORY: Cirrhosis. Diabetes. Hepatitis C. Afib. Asthma. CAD. CHF. CKD. [employer] D. HTN. LA. Pacemaker. Cholecystectomy. Coronary artery stent. COMPARISON: No prior exams available for comparison. FLUID: Total volume of 600 cc of clear, yellow fluid was removed. Fluid was sent to lab for ordered studies. . . TECHNIQUE: Ultrasound guidance for thoracentesis. Thoracentesis. The risks, benefits, and alternatives to ultrasound guided thoracentesis were explained to the patien t in lay simple terms, including the risk of bleeding and infection. Written and verbal informed con sent was obtained. Appropriate area for right thoracentesis was marked under ultrasound guidance with the patient in the upright position. Overlying skin was prepped and draped in the usual sterile fashion and with local anesthetic, a dermatotomy was made with an 11 blade scalpel. A 6 [place] thoracentesis catheter was placed in the pleural space and fluid was removed. Catheter was then removed and a sterile dressing applied. There were no immediate complications. The patient tolerated the procedure well and the lef t the ultrasound suite in stable condition. Chest radiograph is to be obtained. FINDINGS: Adequate fluid for thoracentesis. CONCLUSION: 1. Uncomplicated thoracentesis. Electronically signed by: Max Bennett MD 10/23/2018 2:34 PM EST
[2018-10-23 15:02] LABS: Total Protein,Pleural Fluid 1.7 gm/dL
--- NOTE | 2018-10-23 15:02 | P.CONPAL ---
Consult Service: Palliative Care Requesting Physician: Jada Ewing Reason for Consult: a. To assist with evaluation and management of symptoms including: dyspnea b. To assist medical decision maker(s) with: better understanding of current medical conditions; weighing benefits/burdens of medical treatment options; making medical treatment decisions. Primary Care Provider: Claudia Richard History of Present Illness History of Present Illness: This 83-year-old patient presented to the ED on 10/21/18 with complaints of shortness of breath. She has known history of CHF, COPD O2 dependent. She was just discharged home from the hospital 10/07, and had been doing well until about 3 days before presentation when she is per the daughter. She also complained of shortness of breath. Is been taking all of her medicines. Daughter reports fever 99.8. She also reported back pain and chest tightness. She was recently admitted 10/02 through 10/07 for pneumonia and CHF exacerbation. * Symptoms improved during ER course with diuretics. Troponin 0 0.03. Total CK 81. WBC 14.6. Hemoglobin 10.5, hematocrit 22.5. BUN 23, creatinine 1.7 * Chest CT shows moderate pleural effusion right with mild pleural effusion left. Small chronic pleural effusion known at baseline. Imaging also positive findings of cirrhosis and what appears to be multiple masses, nonspecific lymphadenopathy in the mediastinum. Concern could be possible malignancy. Unable to obtain MRI due to claustrophobia does not want to use this. [place] I prohibiting use of contrast. Admitted for further evaluation and management. may require thoracentesis. Additional diagnostics, possible biopsy considered. * Later required transfer to ICU for respiratory distress, required BiPAP, also noted to have A. fib RVR. Required Cardizem drip. H&H down slightly hemoglobin 6.9, hematocrit 19.7family initially not certain if they wish to proceed with transfusion. Eliquis held due to anemia. * 10/23 CXR with significant reduction in right pleural effusion no pneumothorax. Persistent bibasilar consolidation and effusion with central vascular congestion. Stool occult blood positive. She was transfused 2 units RBC. Repeat hemoglobin 10.1. Underwent ultrasound-guided thoracentesis right pleural effusion; pleural fluid cytology pending. * Palliative care was consulted to assist with clarification of goals of medical treatment. Pt seen in room, daughter present . Dual visit radha Breaux APRN. Pt alert, pleasant, oriented. Speaks mostly Latvian. Offered translation services, she indicates she prefers to let her daughter translate for her that she doesn't like the computer translation. She indicates feeling well today. Breathing well, no dyspnea. No chest pain. no other pain. Just wants to eat, is hungry. Explore w daughter conditions, recent trajectory, history. Daughter indicates patient has had a year ago she had multiple hospitalizations and then seemed to stabilize and not have frequent hospitalizations, and now her pattern of frequent hospitalizations is beginning again. Explore that exacerbations may continue and at some point pt conditions could worsen and not respond well to few day hospital course. Explore code status. Explore decision makers, advanced directives. Daughter indicates that they have completed paperwork, pt designated her and her sister as decision makers. She indicates they just are awaiting a notary. Daughter expresses that for now the patient wants to live and wants to continue available treatments as long as she is able to upon review of CODE STATUS she is not as certain if the patient would want a breathing tube or not will talk further with patient. --Recent admission 10/02 through 10/07-she was treated for CHF, pneumonia.Last ECHO 09/06/17 with LV wnl and EF 60-65%, mild concentric LVH, mild MV regurg, moderate TV regurg, [id number] pulm HTN (60-70 mmHg), mild PV regurg. She was discharged home with home health. --She was also admitted 09/12 through 09/15 for pneumonia, hypoxia. She had RVR requiring Cardizem during this admission. She was discharged home with home health. --She was admitted 08/13 through 08/15 for chest pain, chest tightness. She was discharged home with home health. --She follows with hematology for anemia, chronic thrombocytopenia. Last follow -up in electronic record available for my review 06/30/18; she is noted to have thrombocytopenia secondary to hepatitis C and liver cirrhosis. She is also had ongoing splenomegaly. Counts are noted to be stable. Borderline anemia. --She was admitted 12/13/17 through 12/16/17 for hyperglycemia, diabetes --She had several admissions during 2017 for CHF, COPD, atrial fibrillation. Function/Cognitive Trajectory: Previously lived at home utilizing home health. Used a walker, wheelchair as needed, home O2 2 L. Has required some assistance with ADLs at home from family. Review of Systems Constitutional: Denies anorexia, Denies fatigue, Denies headache(s), Denies increased appetite Ears, Nose, Mouth, and Throat: Denies difficulty swallowing, Denies dizziness, Denies pain with swallowing, Denies sore throat Cardiovascular: Reports irregular heart rhythm, Reports shortness of breath, Denies chest pain at rest, Denies chest pain with activity Respiratory: Reports shortness of breath, Denies chest congestion, Denies cough , Denies pain on inspiration Gastrointestinal: Denies abdominal pain, Denies constipation, Denies cramping, Denies difficulty swallowing, Denies nausea, Denies vomiting Musculoskeletal: Denies joint pain Skin/Breast: Denies rash Neurologic: Denies confusion, Denies dizziness, Denies frequent falls, Denies headache(s), Denies memory loss [facility] - History History Provided By: Patient, Family Member - Medical History Medical History: Medical History (Last Reviewed 10/23/18 @ 17:32 by BELINDA Arguelles) Afib Asthma CAD (coronary artery disease) CHF (congestive heart failure) CKD (chronic kidney disease) COPD (chronic obstructive pulmonary disease) Cirrhosis Diabetes HTN (hypertension) Hepatitis C Myocardial infarction Pacemaker - Surgical History Surgical History: Surgical History (Last Reviewed 10/23/18 @ 17:32 by BELINDA Arguelles) History of cholecystectomy History of heart artery stent - Family History Family History: Family History (Last Reviewed 10/23/18 @ 17:32 by BELINDA Arguelles) Other HTN (hypertension) - Social History I have reviewed the patient's Social History: Yes - Tobacco History Second Hand Smoke Exposure: No Tobacco Use In Past 30 Days: No Smoking Status: Never smoker - Alcohol History How Often Do You Have a Drink Containing Alcohol: Never - Substance Use History Substance History: No History of Abuse - Travel History History of Recent Travel: No Recent Travel in the [place] Within the Last 8 Weeks: No Recent Travel Out of the Country Within the Last 8 Weeks: No - Immunization History Tetanus Immunization: Never Vaccinated Hx Influenza Vaccine This Season: No Medications and Allergies Active Medications: Active Medications Albuterol (Duoneb Neb (Marlon)) 1 ampul INH Q12HR NEB MARLON Last Admin: 10/23/18 07:50 Dose: 1 ampul Albuterol (Albuterol Concentrated Neb) 2.5 mg NEB Q4HR NEB PRN PRN Reason: WHEEZING Apixaban (Eliquis) 2.5 mg PO BID [facility] Last Admin: 10/21/18 20:01 Dose: 2.5 mg Budesonide/Formoterol Fumarate (Symbicort 160/4.5 Mcg Inh) 2 puff INH BID [facility] Last Admin: 10/23/18 08:59 Dose: 2 puff Bumetanide (Bumex) 1 mg PO DAILY@0800,1600 [facility] Last Admin: 10/23/18 08:58 Dose: 1 mg Carvedilol (Coreg) 6.25 mg PO BID [facility] Chlorhexidine Gluconate (Chlorhexidine 2% Cloth) 3 pack TOPICAL DAILY@0400 [facility] Stop: 10/27/18 03:59 Last Admin: 10/23/18 06:10 Dose: 3 pack Chlorhexidine Gluconate (Chlorhexidine 2% Cloth) 3 pack TOPICAL DAILY@0400 PRN PRN Reason: Extra cloth needed Stop: 10/27/18 03:59 Dextrose (D50w Vial) 50 ml IV.PUSH UNSCH PRN PRN Reason: PER HYPOGLYCEMIA PROTOCOL Digoxin (Lanoxin) 125 mcg PO EVERY OTHER DAY [facility] Last Admin: 10/23/18 08:57 Dose: 125 mcg Diltiazem HCl (Cardizem Cd 24hr) 180 mg PO DAILY [facility] Famotidine (Pepcid) 20 mg PO DAILY [facility] Last Admin: 10/23/18 08:58 Dose: 20 mg Ferrous Sulfate (Ferosul) 325 mg PO DAILY [facility] Last Admin: 10/23/18 08:58 Dose: 325 mg Glucagon (Glucagon Inj) 1 mg OTHER PRN PRN PRN Reason: for Hypoglycemia Protocol Diltiazem HCl 125 mg/ Sodium (Chloride) 125 mls @ 5 mls/hr IV.CONT TITRATE PRN ; Protocol PRN Reason: Per Protocol Last Titration: 10/22/18 11:00 Dose: Infused Diltiazem HCl 125 mg/ Sodium (Chloride) 125 mls @ 5 mls/hr IV.CONT TITRATE PRN ; Protocol PRN Reason: Per Protocol Last Titration: 10/23/18 09:58 Dose: 0 mg/hr, 0 mls/hr Insulin Aspart (Novolog Insulin Correctional Sugar Inj) 0 unit SQ ACHS [facility]; Protocol Last Admin: 10/23/18 13:00 Dose: 7 unit Insulin Detemir (Levemir Inj) 7 unit SQ HS [facility] Levothyroxine Sodium (Synthroid) 125 mcg PO DAILY@0600 [facility] Last Admin: 10/23/18 08:57 Dose: 125 mcg (Insulin Degludec [ Tresiba Flextouch U- 100] 20 Unit) 1 unit SQ DAILY [facility] Ondansetron HCl (Zofran Inj) 4 mg IV.PUSH Q6H PRN PRN Reason: NAUSEA OR VOMITING Last Admin: 10/21/18 18:22 Dose: 4 mg (Arformoterol 15 Mcg (/2 Ml [Brovana] Inh)) 1 each INH BID [facility] Senna/Docusate Sodium (Arianne-Colace) 1 tab PO BID [facility] Last Admin: 10/23/18 08:57 Dose: 1 tab Sennosides (Senokot) 17.2 mg PO Q12H PRN PRN Reason: Moderate Constipation Sucralfate (Carafate) 1 gm PO Q6HR [facility] Last Admin: 10/23/18 12:59 Dose: 1 gm Allergies Allergy/AdvReac Type Severity Reaction Status Date / Time penicillin G Allergy Severe Anaphylaxis Verified 10/02/18 10:13 Iodinated Contrast- Oral and AdvReac Severe Hives Verified 10/02/18 10:13 IV Dye levofloxacin AdvReac Severe Confusion Verified 10/02/18 10:13 Quinolones AdvReac Severe Confusion Verified 10/02/18 10:13 verapamil AdvReac Severe Nausea/Vomi Verified 10/02/18 10:13 ting Home Medications Medication Instructions Recorded Confirmed Type apixaban [Eliquis] 2.5 mg PO BID 08/13/18 10/21/18 History diltiazem HCl 180 mg PO TID 08/13/18 10/21/18 History sitagliptin [Januvia] 50 mg PO DAILY 08/13/18 10/21/18 History albuterol sulfate [ProAir HFA] 2 puff INHALATION Q4-6H PRN 09/06/18 10/21/18 History arformoterol [Brovana] 1 puff INHALATION BID 09/06/18 10/21/18 History budesonide-formoterol [Symbicort] 2 puff INHALATION BID 09/06/18 10/21/18 History ferrous gluconate 270 mg PO DAILY 09/06/18 10/21/18 History insulin aspart U-100 [Novolog 1 sliding scale dose SUBCUT UD PRN 09/06/18 History PenFill U-100 Insulin] insulin degludec [Tresiba 20 unit SUBCUT DAILY 09/06/18 10/21/18 History FlexTouch U-100] ipratropium-albuterol 3 ml INHALATION Q12HR 10/02/18 10/21/18 History levothyroxine 125 mcg PO DAILY 10/02/18 10/21/18 History bumetanide 0.5 mg PO BID 10/21/18 10/21/18 History digoxin [Lanoxin] 0.125 mg PO EVERY OTHER DAY 10/21/18 10/21/18 History metoprolol succinate [Toprol XL] 25 mg PO Q12HR 10/21/18 10/21/18 History ranitidine HCl [Zantac] 150 mg PO DAILY 10/21/18 10/21/18 History sucralfate [Carafate] 1 g PO Q6H 10/21/18 10/21/18 History Advance Directives Ethical and Legal Issues: Patient currently alert and oriented and able to participate in decision- making. She involves her daughter in all decisions. Daughter indicates she has designated her and her sister as decision makers awaiting paperwork. Physical Exam Vital Signs: Vital Signs - 24 hr 10/22/18 14:30 10/22/18 14:45 10/22/18 15:00 Temperature Pulse Rate 96 H 98 H 94 H Respiratory Rate 32 H 32 H 35 H Blood Pressure 137/74 143/70 H 137/84 Pulse Oximetry 97 97 97 10/22/18 15:15 10/22/18 15:30 10/22/18 15:45 Temperature Pulse Rate 99 H 98 H 98 H Respiratory Rate 31 H 31 H 33 H Blood Pressure 153/72 H 149/69 H 143/71 H Pulse Oximetry 98 96 98 10/22/18 16:00 10/22/18 16:15 10/22/18 16:30 Temperature Pulse Rate 99 H 103 H 105 H Respiratory Rate 32 H 32 H 36 H Blood Pressure 145/70 H 141/72 H 151/74 H Pulse Oximetry 98 94 L 94 L 10/22/18 16:45 10/22/18 17:00 10/22/18 17:15 Temperature Pulse Rate 106 H 106 H 102 H Respiratory Rate 28 H 33 H 31 H Blood Pressure 139/75 156/82 H 143/81 H Pulse Oximetry 93 L 95 94 L 10/22/18 17:31 10/22/18 17:50 10/22/18 18:00 Temperature Pulse Rate 103 H 111 H 112 H Respiratory Rate 32 H 31 H 43 H Blood Pressure 156/76 H 146/73 H 168/79 H Pulse Oximetry 96 95 96 10/22/18 18:15 10/22/18 18:17 10/22/18 18:30 Temperature 99.0 F Pulse Rate 116 H 115 H 117 H Respiratory Rate 43 H 21 35 H Blood Pressure 177/79 H 177/79 H 156/74 H Pulse Oximetry 93 L 96 10/22/18 18:45 10/22/18 19:00 10/22/18 19:15 Temperature Pulse Rate 124 H 119 H 119 H Respiratory Rate 35 H 32 H 34 H Blood Pressure 172/77 H 155/74 H 149/91 H Pulse Oximetry 97 96 96 10/22/18 19:30 10/22/18 19:45 10/22/18 20:00 Temperature Pulse Rate 122 H 127 H 133 H Respiratory Rate 34 H 38 H 28 H Blood Pressure 157/97 H 176/83 H 177/95 H Pulse Oximetry 97 95 96 10/22/18 20:15 10/22/18 20:30 10/22/18 20:31 Temperature Pulse Rate 117 H 116 H 116 H Respiratory Rate 24 30 H 27 H Blood Pressure 147/91 H 160/101 H 149/76 H Pulse Oximetry 95 95 95 10/22/18 20:45 10/22/18 21:00 10/22/18 21:15 Temperature Pulse Rate 120 H 108 H 111 H Respiratory Rate 29 H 31 H 34 H Blood Pressure 153/81 H 162/84 H 152/80 H Pulse Oximetry 97 97 97 10/22/18 21:30 10/22/18 21:45 10/22/18 22:00 Temperature Pulse Rate 102 H 111 H 105 H Respiratory Rate 31 H 33 H 33 H Blood Pressure 151/77 H 156/91 H 149/82 H Pulse Oximetry 97 96 97 10/22/18 22:15 10/22/18 22:18 10/22/18 22:30 Temperature 99.4 F Pulse Rate 99 H 92 H 99 H Respiratory Rate 30 H 28 H 27 H Blood Pressure 149/76 H 149/78 H 152/74 H Pulse Oximetry 96 96 95 10/22/18 22:45 10/22/18 23:00 10/22/18 23:07 Temperature Pulse Rate 101 H 100 H 106 H Respiratory Rate 33 H 37 H 34 H Blood Pressure 162/92 H 137/99 H Pulse Oximetry 93 L 10/22/18 23:33 10/23/18 00:00 10/23/18 00:30 Temperature 99.0 F Pulse Rate 99 H 99 H 105 H Respiratory Rate 33 H 34 H 33 H Blood Pressure 146/83 H 164/77 H 161/83 H Pulse Oximetry 94 L 96 95 10/23/18 01:00 10/23/18 01:31 10/23/18 01:34 Temperature Pulse Rate 105 H 126 H 129 H Respiratory Rate 36 H 38 H 37 H Blood Pressure 160/94 H 191/87 H 190/81 H Pulse Oximetry 94 L 90 L 92 L 10/23/18 01:40 10/23/18 02:00 10/23/18 02:30 Temperature Pulse Rate 102 H 105 H Respiratory Rate 30 H 29 H Blood Pressure 139/79 153/77 H Pulse Oximetry 95 92 L 96 10/23/18 03:02 10/23/18 03:03 10/23/18 03:30 Temperature Pulse Rate 120 H 119 H 107 H Respiratory Rate 35 H 33 H 35 H Blood Pressure 146/93 H 161/89 H 159/77 H Pulse Oximetry 96 95 95 10/23/18 04:00 10/23/18 04:07 10/23/18 04:32 Temperature Pulse Rate 94 H 91 H Respiratory Rate 20 20 Blood Pressure 145/70 H 143/68 H Pulse Oximetry 91 L 95 94 L 10/23/18 05:00 10/23/18 05:30 10/23/18 05:46 Temperature Pulse Rate 88 89 83 Respiratory Rate 19 19 18 Blood Pressure 142/73 H 143/103 H 150/87 H Pulse Oximetry 95 96 97 10/23/18 07:50 10/23/18 08:00 10/23/18 10:04 Temperature 98.3 F Pulse Rate 83 88 Respiratory Rate 17 35 H Blood Pressure 148/73 H Pulse Oximetry 97 95 93 L 10/23/18 13:16 10/23/18 13:45 Temperature 99.2 F 99.2 F Pulse Rate 94 H 96 H Respiratory Rate 26 H 26 H Blood Pressure 148/72 H 134/98 H Pulse Oximetry 100 100 I&O: Intake & Output 10/21/18 10/22/18 10/23/18 10/24/18 06:59 06:59 06:59 06:59 Intake Total 200 / 200 1135 / 1135 111 / 111 Output Total 250 / 250 1450 / 1450 Balance -50 / -50 -315 / -315 111 / 111 Weight 53.7 kg 54 kg Physical Exam: CONSTITUTIONAL/GENERAL: This is an adequately nourished patient, in no apparent distress. TUBES/LINES/DRAINS: Peripheral IVs bilateral upper extremities. SKIN: No jaundice, rashes, or lesions. Multiple areas ecchymoses on upper extremities. No wounds seen anteriorly. Skin warm and dry. Chronic vascular changes noted to bilateral lower legs HEAD: Atraumatic. Normocephalic. EYES: Pupils equal and round and reactive. Extraocular motions intact. No scleral icterus. No injection or drainage. Fundi not examined. ENT: Nose without bleeding or purulent drainage. Throat without visible erythema, exudates, masses, or lesions. NECK: Trachea midline. Supple, nontender. No palpable thyroid enlargement or nodularity. CARDIOVASCULAR: irregular rate and rhythm without murmurs. Atrial fib observed bedside monitor. No JVD. Peripheral pulses symmetric. RESPIRATORY/CHEST: Symmetric, unlabored respirations. On 4L, clear to auscultation. Breath sounds equal bilaterally. GASTROINTESTINAL: Abdomen soft, non-tender, nondistended. No hepato-splenomegaly , or palpable masses. No guarding. Bowel sounds present. GENITOURINARY: Without palpable bladder distension. MUSCULOSKELETAL: Extremities without clubbing, cyanosis, or edema. No joint tenderness or effusion noted. No calf tenderness. No mottling or clubbing. LYMPHATICS: No palpable cervical or supraclavicular adenopathy. NEUROLOGICAL: Awake and alert, oriented per translation via daughter. Patient declines translation service. Moves all 4 extremities. Pleasant, talkative. Motor and sensory grossly within normal limits. Follows commands. PSYCHIATRIC: No obvious anxiety/depression. no apparent hallucinations or other psychotic thought process. Diagnostic Tests Laboratory: Laboratory Results - last 72 hr 10/21/18 10/21/18 10/21/18 10:10 10:10 10:10 WBC 14.6 H RBC 2.59 L Hgb 7.5 L Hct 22.5 L MCV 87.2 MCH 29.0 MCHC 33.2 RDW 14.6 Plt Count 81 L D MPV 9.8 Prelim Diff (Auto) Slide review pending Neut % (Auto) 69.8 Lymph % (Auto) 15.4 [place] % (Auto) 13.6 H Eos % (Auto) 0.8 Baso % (Auto) 0.4 Neut # (Auto) 10.2 H Lymph # (Auto) 2.3 [place] # (Auto) 2.0 H Eos # (Auto) 0.1 Baso # (Auto) 0.1 WBC Differential Manual diff final Seg Neuts % (Manual) 61 Band Neuts % (Manual) 7 H Lymphocytes % (Manual) 18 Monocytes % (Manual) 1 Eosinophils % (Manual) 1 Basophils % (Manual) 2 Metamyelocytes % (Man) 7 H Myelocytes % (Man) 2 H Blast Cells % (Manual) 1 H Abs Neuts (Manual) 11.2 H Nucleated RBCs/100 WBC 3 H Differential Comment . Platelet Estimate Low L Platelet Morphology Normal Polychromasia Ovalocytes 1+ H PT 13.3 H INR 1.3 APTT 24.2 Sodium 138 Potassium 3.4 L Chloride 100 Carbon Dioxide 27.7 Anion Gap 10 BUN 23 H Creatinine 1.75 H Estimated GFR 28 L POC Glucose Random Glucose 175 H Calcium 8.4 L Phosphorus Magnesium Total Bilirubin 0.8 AST 45 H ALT 30 Alkaline Phosphatase 100 Total Creatine Kinase 81 Troponin I 0.03 B-Natriuretic Peptide Total Protein 8.4 H Albumin 3.1 L Nasal Screen MRSA (PCR) Blood Type Antibody Screen MTS Gel Crossmatch 10/21/18 10/21/18 10/21/18 10:10 10:10 17:35 WBC RBC Hgb Hct MCV MCH MCHC RDW Plt Count MPV Prelim Diff (Auto) Neut % (Auto) Lymph % (Auto) [place] % (Auto) Eos % (Auto) Baso % (Auto) Neut # (Auto) Lymph # (Auto) [place] # (Auto) Eos # (Auto) Baso # (Auto) WBC Differential Seg Neuts % (Manual) Band Neuts % (Manual) Lymphocytes % (Manual) Monocytes % (Manual) Eosinophils % (Manual) Basophils % (Manual) Metamyelocytes % (Man) Myelocytes % (Man) Blast Cells % (Manual) Abs Neuts (Manual) Nucleated RBCs/100 WBC Differential Comment Platelet Estimate Platelet Morphology Polychromasia Ovalocytes PT INR APTT Sodium Potassium Chloride Carbon Dioxide Anion Gap BUN Creatinine Estimated GFR POC Glucose 145 H Random Glucose Calcium Phosphorus Magnesium Total Bilirubin AST ALT Alkaline Phosphatase Total Creatine Kinase Cancelled Troponin I B-Natriuretic Peptide 570 H Total Protein Albumin Nasal Screen MRSA (PCR) Blood Type Antibody Screen MTS Gel Crossmatch 10/21/18 10/21/18 10/21/18 18:49 19:58 20:00 WBC RBC Hgb Hct MCV MCH MCHC RDW Plt Count MPV Prelim Diff (Auto) Neut % (Auto) Lymph % (Auto) [place] % (Auto) Eos % (Auto) Baso % (Auto) Neut # (Auto) Lymph # (Auto) [place] # (Auto) Eos # (Auto) Baso # (Auto) WBC Differential Seg Neuts % (Manual) Band Neuts % (Manual) Lymphocytes % (Manual) Monocytes % (Manual) Eosinophils % (Manual) Basophils % (Manual) Metamyelocytes % (Man) Myelocytes % (Man) Blast Cells % (Manual) Abs Neuts (Manual) Nucleated RBCs/100 WBC Differential Comment Platelet Estimate Platelet Morphology Polychromasia Ovalocytes PT INR APTT Sodium Potassium Chloride Carbon Dioxide Anion Gap BUN Creatinine Estimated GFR POC Glucose 176 H 174 H Random Glucose Calcium Phosphorus Magnesium Total Bilirubin AST ALT Alkaline Phosphatase Total Creatine Kinase Troponin I B-Natriuretic Peptide Total Protein Albumin Nasal Screen MRSA (PCR) Not detected Blood Type Antibody Screen MTS Gel Crossmatch 10/22/18 10/22/18 10/22/18 04:13 04:13 04:13 WBC 11.4 H RBC 2.33 L Hgb 6.9 L* Hct 19.7 L* MCV 84.6 MCH 29.5 MCHC 34.9 RDW 14.3 Plt Count 73 L MPV 9.6 Prelim Diff (Auto) Slide review pending Neut % (Auto) 69.2 Lymph % (Auto) 16.4 [place] % (Auto) 13.4 H Eos % (Auto) 0.6 Baso % (Auto) 0.4 Neut # (Auto) 7.9 H Lymph # (Auto) 1.9 [place] # (Auto) 1.5 H Eos # (Auto) 0.1 Baso # (Auto) 0.0 WBC Differential Manual diff final Seg Neuts % (Manual) 73 H Band Neuts % (Manual) 5 Lymphocytes % (Manual) 15 Monocytes % (Manual) 3 Eosinophils % (Manual) 1 Basophils % (Manual) Metamyelocytes % (Man) 1 Myelocytes % (Man) 1 H Blast Cells % (Manual) 1 H Abs Neuts (Manual) 9.1 H Nucleated RBCs/100 WBC 4 H Differential Comment . Platelet Estimate Low L Platelet Morphology Normal Polychromasia Ovalocytes 1+ H PT INR APTT Sodium 139 Potassium 3.3 L Chloride 101 Carbon Dioxide 31.3 Anion Gap 7 BUN 18 Creatinine 1.25 H Estimated GFR 41 L POC Glucose Random Glucose 127 H Calcium 8.3 L Phosphorus Magnesium 1.3 L Total Bilirubin 1.0 AST 40 H ALT 24 Alkaline Phosphatase 77 Total Creatine Kinase Troponin I B-Natriuretic Peptide Total Protein 7.8 D Albumin 2.9 L Nasal Screen MRSA (PCR) Blood Type Antibody Screen MTS Gel Crossmatch 10/22/18 10/22/18 10/22/18 07:32 08:14 11:29 WBC RBC Hgb Hct MCV MCH MCHC RDW Plt Count MPV Prelim Diff (Auto) Neut % (Auto) Lymph % (Auto) [place] % (Auto) Eos % (Auto) Baso % (Auto) Neut # (Auto) Lymph # (Auto) [place] # (Auto) Eos # (Auto) Baso # (Auto) WBC Differential Seg Neuts % (Manual) Band Neuts % (Manual) Lymphocytes % (Manual) Monocytes % (Manual) Eosinophils % (Manual) Basophils % (Manual) Metamyelocytes % (Man) Myelocytes % (Man) Blast Cells % (Manual) Abs Neuts (Manual) Nucleated RBCs/100 WBC Differential Comment Platelet Estimate Platelet Morphology Polychromasia Ovalocytes PT INR APTT Sodium Potassium Chloride Carbon Dioxide Anion Gap BUN Creatinine Estimated GFR POC Glucose 153 H 161 H Random Glucose Calcium Phosphorus Magnesium Total Bilirubin AST ALT Alkaline Phosphatase Total Creatine Kinase Troponin I B-Natriuretic Peptide Total Protein Albumin Nasal Screen MRSA (PCR) Blood Type O Positive Antibody Screen Negative MTS Gel Crossmatch See Detail 10/22/18 10/22/18 10/23/18 16:20 20:27 04:24 WBC RBC Hgb Hct MCV MCH MCHC RDW Plt Count MPV Prelim Diff (Auto) Neut % (Auto) Lymph % (Auto) [place] % (Auto) Eos % (Auto) Baso % (Auto) Neut # (Auto) Lymph # (Auto) [place] # (Auto) Eos # (Auto) Baso # (Auto) WBC Differential Seg Neuts % (Manual) Band Neuts % (Manual) Lymphocytes % (Manual) Monocytes % (Manual) Eosinophils % (Manual) Basophils % (Manual) Metamyelocytes % (Man) Myelocytes % (Man) Blast Cells % (Manual) Abs Neuts (Manual) Nucleated RBCs/100 WBC Differential Comment Platelet Estimate Platelet Morphology Polychromasia Ovalocytes PT INR APTT Sodium 136 Potassium 4.2 D Chloride 98 Carbon Dioxide 28.6 Anion Gap 9 BUN 25 H Creatinine 1.49 H Estimated GFR 33 L POC Glucose 135 H 160 H Random Glucose 228 H D Calcium 8.1 L Phosphorus 3.8 Magnesium 1.4 L Total Bilirubin 3.9 H AST 35 ALT 22 Alkaline Phosphatase 75 Total Creatine Kinase Troponin I B-Natriuretic Peptide Total Protein 8.0 Albumin 3.0 L Nasal Screen MRSA (PCR) Blood Type Antibody Screen MTS Gel Crossmatch 10/23/18 10/23/18 10/23/18 04:24 08:12 12:06 WBC 10.3 RBC 3.41 L Hgb 10.1 L D Hct 29.3 L MCV 86.0 MCH 29.7 MCHC 34.6 RDW 14.9 Plt Count 78 L MPV 9.3 Prelim Diff (Auto) Slide review pending Neut % (Auto) 75.3 H Lymph % (Auto) 11.0 [place] % (Auto) 13.4 H Eos % (Auto) 0.2 Baso % (Auto) 0.1 Neut # (Auto) 7.8 H Lymph # (Auto) 1.1 [place] # (Auto) 1.4 H Eos # (Auto) 0.0 Baso # (Auto) 0.0 WBC Differential Manual diff final Seg Neuts % (Manual) 70 Band Neuts % (Manual) 2 Lymphocytes % (Manual) 6 L Monocytes % (Manual) 12 H Eosinophils % (Manual) Basophils % (Manual) 1 Metamyelocytes % (Man) 3 H Myelocytes % (Man) 6 H Blast Cells % (Manual) Abs Neuts (Manual) 8.3 H Nucleated RBCs/100 WBC 3 H Differential Comment . Platelet Estimate Low L Platelet Morphology Normal Polychromasia 2.6 H Ovalocytes 1+ H PT INR APTT Sodium Potassium Chloride Carbon Dioxide Anion Gap BUN Creatinine Estimated GFR POC Glucose 251 H 294 H Random Glucose Calcium Phosphorus Magnesium Total Bilirubin AST ALT Alkaline Phosphatase Total Creatine Kinase Troponin I B-Natriuretic Peptide Total Protein Albumin Nasal Screen MRSA (PCR) Blood Type Antibody Screen MTS Gel Crossmatch Result Diagrams: 10/23/18 04:24 10/23/18 04:24 Microbiology: Microbiology 10/22/18 17:45 Stool Occult Blood (GORDON) - Final Stool Hemoccult positive Imaging: Impressions Abdomen Ultrasound 10/21/18 00:00 CONCLUSION: 1. Cirrhotic liver. Hepatic masses noted on CT exam are not well demonstrated on ultrasound. Again, Eovist MRI examination may be performed for further evaluation. 2. Bilateral renal cysts. Chest X-Ray 10/23/18 00:00 CONCLUSION: No pneumothorax Thoracentesis Ultrasound 10/23/18 00:00 CONCLUSION: 1. Uncomplicated thoracentesis. Procedures: 10/23 ultrasound-guided thoracentesis Patient/Family Conference Family Conference Time: 30 Family Conference Location: Bedside Issues Discussed: * Palliative care role, purpose, approach * Additional medical, psychosocial, and spiritual history * Patients general health, functional status, and cognitive changes in the months leading up to the current hospitalization * Patient/family understanding of the current medical problems * Patient/family understanding of prognosis * Patients goals of care as best understood from advance directives and/or conversations and/or values * Current medical treatment options and benefits/burdens of those options * Likely scenarios comparing ongoing aggressive care with a transition to comfort measures only * Questions answered to the best of my ability * Palliative care contact information provided Meeting with patient and daughter at bedside. Patient declines to have translation service. She indicates feeling well today. Breathing well, no dyspnea. No chest pain. no other pain. Just wants to eat, is hungry. Explore w daughter conditions, recent trajectory, history. Daughter indicates patient has had a year ago she had multiple hospitalizations and then seemed to stabilize and not have frequent hospitalizations, and now her pattern of frequent hospitalizations is beginning again. Explore that exacerbations may continue and at some point pt conditions could worsen and not respond well to few day hospital course. Explore code status. Briefly explore options to continue aggressive treatments versus no further invasive treatments and focus on comfort and symptom management such as provided by hospice. Explore decision makers, advanced directives. Daughter indicates that they have completed paperwork, pt designated her and her sister as decision makers. She indicates they just are awaiting a notary. Daughter expresses that for now the patient wants to live and wants to continue available treatments as long as she is able to upon review of CODE STATUS she is not as certain if the patient would want a breathing tube or not will talk further with patient. Daughter indicates that she understands patient overall prognosis and high risk for further complication and decline. Assessment and Plan - Disease Oriented Problem List (1) CHF (congestive heart failure) (2) Chest pain (3) Peripheral vascular disease (4) Hypertension (5) CKD (chronic kidney disease) (6) Diabetes (7) Atrial fibrillation (8) Community acquired pneumonia (9) CHF exacerbation (10) COPD exacerbation (11) Hypoxia Pertinent Non-Medical Issues: Psychosocial: Originally from [place] though has lived in the for many years. Originally in [place] and [place], has lived in [place] with her daughter here for the past 3 years after suffering an ME in [place]. She has 5 children, 2 sons, 3 daughters. . 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 Ethical issues impacting care: No ethical issues Important Contacts: Sherice Cerda [phone] Prognosis: This patient was admitted for acute dyspnea. She has had multiple hospitalizations in the past year for CHF, shortness of breath, pneumonia. She had findings this admission of pleural effusion requiring thoracentesis. Also new findings of possible liver masses. High risk for ongoing hospitalizations and cardiopulmonary complications. Additionally if malignancy is present may further complicate and worsen prognosis. Code Status: Full Code Plan: Legal decision maker: Patient appears capacitated and able to make her own decisions however she involves closely her daughter who she lives with. Goals: Daughter expresses that for now the patient wants to live and wants to continue available treatments as long as she is able to upon review of CODE STATUS she is not as certain if the patient would want a breathing tube or not will talk further with patient. Daughter indicates that she understands patient overall prognosis and high risk for further complication and decline. CODE STATUS: full code SYMPTOMS: --dyspnea-presented with dyspnea. Underlying cardiac and pulmonary disease process. Today denies dyspnea. Today on 4 L nasal cannula/has been on and off BiPAP. denies any other complaints/symptoms. will cont to evaluate Palliative care will continue to follow during hospital course as condition evolves, to assist patient/decision-maker with understanding of medical conditions, weighing benefits/burdens of treatment options, for clarification of goals of treatment. Additionally will assist with any symptoms of palliative concern Appreciation Thank you for the opportunity to participate in the care of Toshia Ortiz. Attestation Attestation: To help prompt me to consider important information that might be impacting today's encounter and assessment, information from prior notes written by myself or my colleagues may have been "brought forward" into today's note. My signature on this note, however, is an attestation that I personally performed the exam, history, and/or decision-making noted today, and, unless otherwise indicated, the interactions with patient, family, and staff as well as the review of records all occurred today. I also attest that the listed assessment and stated plan reflect my best clinical judgment today based on the combination of historical information, prior notes, and today's exam/ interactions. When time spent is documented, it refers only to time spent today by the signer, or if indicated, combined time spent today by collaborating physician/nurse practitioner.
[2018-10-23 16:19] LABS: Neutrophils,Pleural Fluid 16 %; RBC,Pleural Fluid 1418 /mm3 (0-0)
[2018-10-23 16:20] LABS: Lymphocytes,Pleural Fluid 81 %
[2018-10-23] MEDS ORDERED: Insulin Detemir Inj 1,000 UNIT/10 ML Vial SQ SCH (21:00)
[2018-10-23] MEDS: Carvedilol 6.25 MG Tablet PO SCH (21:26)
[2018-10-24] MEDS: Sucralfate 1 GM Tablet PO SCH ×4 (00:19→18:05)
[2018-10-24] MEDS: Chlorhexidine Gluconate 2% 1 Pack (2 Cloths) TOPICAL SCH (04:00)
[2018-10-24] MEDS: Carvedilol 6.25 MG Tablet PO SCH (08:51)
[2018-10-24] MEDS: Ferrous Sulfate 325 MG Tablet PO SCH (08:51)
[2018-10-24] MEDS: Levothyroxine 125 MCG Tablet PO SCH (08:51)
[2018-10-24] MEDS: Insulin NovoLOG Aspart Correctional Sugar Inj SQ SCH ×3 (08:51→18:05)
[2018-10-24] MEDS: Famotidine 20 MG Tablet PO SCH (08:51)
[2018-10-24] MEDS: Budesonide-Formoterol 160/4.5 MCG 6 GM Inhaler INH SCH (08:52)
[2018-10-24] MEDS: Senna/Docusate Sodium 8.6/50 MG Tablet PO SCH (08:52)
[2018-10-24] MEDS ORDERED: dilTIAZem CD 180 MG Capsule PO SCH (09:00)
[2018-10-24 13:47] VITALS: BP 131/63; TEMP 97.1; O2SAT 99
--- NOTE | 2018-10-24 14:10 | P.DCO ---
- Home Health Nursing Order: Medical education, Signs/symptoms of disease process, Diabetic education , Oxygen administration education, Medication education-adverse effect, Nursing assessment with vital signs - Home Health Aide Order: To assist in: Bathing and personal care, dragsaw operator and meal prep - Case Management Consult Case Management Consult-Home Health: Yes - Certification I have seen patient Toshia Ortiz on 10/24/18. My clinical findings support the need for the requested home health care services because: Limited mobility due to disease progression, Patient has SOB, Deconditioned with increased weakness, Medication compliance is questionable, Limited ability to care for self, Need for psychosocial assistance, High risk of falls, Infection with risk of complications I certify that my clinical findings support that this patient is homebound because: Unsteady gait/balance, Unsafe to leave home unassisted, Need for psychosocial assistance, Non-ambulatory: confined to bed or chair, Unable to use public transportation
--- NOTE | 2018-10-24 14:55 | P.DS ---
Date of admission: 10/21/18 12:14 Primary care physician: Cluadia Richard Attending physician on discharge: Jada Ewing Anticipated date of discharge: 10/24/18 Brief History from admission: Mrs. Ortiz is an 83-year-old female. She comes in the hospital today secondary to respiratory distress. She uses oxygen at baseline but is requiring a greater amount of oxygen to maintain her saturations. By the time I am seeing her in the emergency department she is feeling better. She did receive a dose of Bumex. At baseline she has CHF, COPD, and chronic hypoxia. Her last hospital admit was for pneumonia and CHF exacerbation on 10/02/2018. At that time the antibiotic selected was linezolid because this patient has numerous antibiotic allergies. Imaging of the chest tonight shows a moderately sized pleural effusion on the right side with a mild pleural effusion on the left. She does have a chronic small pleural effusion as her baseline. Cirrhosis is present at baseline, however, of concern are new findings of liver masses. There is also lymphadenopathy seen in the mediastinum. The potential of these masses could indicate cancer could further explain her pleural effusion. Further imaging pending. The patient complains of no pain occluding her chest, abdomen, or back. With oxygen in the ER and status post diuretics she is feeling better. Her preference is to treat with diuretics rather than thoracentesis but we agreed to see how she does next 24 hours. Acute kidney injury is also present and prohibits use of contrast but this is also prohibited due to patient's iodinated contrast allergies. She is claustrophobic and does not want to utilize an MRI. Patient update on day of discharge: Patient is doing well, currently on 2L Nasal Cannula. No fever, chills. Remains in good spirit. Discussed with family members at bedside and phone. DS: Summary Hospital Course: Ms. Ortiz is a pleasant 3-year-old female who was admitted to the hospital due to respiratory distress. She has a history of CHF, COPD and currently has oxygen at home. Due to worsening of her respiratory status, patient was transferred to ICU and was placed on BiPAP. Imaging studies showed right-sided pleural effusion as well as liver masses. Patient is apprehensive about undergoing liver biopsy. A. fib RVR When of diltiazem drip and continue diltiazem 180 mg p.o. daily. Discontinue metoprolol succinate and start carvedilol 6.25 mg p.o. twice daily. Patient is on apixaban 2.5 mg p.o. twice daily which is currently on hold due to possible thoracentesis today. Continue digoxin 125 mcg p.o. every other day. Acute blood loss anemia Apixaban held. Status post 2 units of PRBCs administration. Currently hemoglobin 10.1. Acute respiratory failure Chronic respiratory failure Moderate right-sided pleural effusion Continue oxygen supplementation Leukocytosis may be reactive, no evidence of pneumonia s/p ultrasound-guided thoracentesis of the right pleural effusion - 600cc fluid drained. Pt is feeling much better, on 2L of O2 now. Systolic CHF exacerbation Continue Bumex 1 mg p.o. twice daily. Liver masses Mediastinal lymphadenopathy Things are discussed with the patient, she is apprehensive about biopsy We consulted palliative care to determine patient's and family's desire to proceed with any kind of biopsy. Acute kidney injury On admission creatinine 1.75. Currently 1.49. This could be due to diuretics use. Diabetes mellitus type 2 Currently on sliding scale insulin. Will add low-dose Levemir. 7 units of Levemir nightly Discussed with patient's daughter who would like to continue home meds for diabetes. COPD No evidence of exacerbation when seen Monitor for evidence of exacerbation As needed albuterol Continue baseline treatments Continue oxygen supplementation - Time Spent with Patient Total time spent providing and/or coordinating discharge services: Less than 30 minutes - Quality: VTE Deep Vein Thrombosis/Pulmonary Embolism Present on Admission: Yes Exam Vital signs: Vital Signs 10/23/18 16:00 10/23/18 19:00 10/23/18 19:30 Temperature 98.7 F Pulse Rate 89 93 H 92 H Respiratory Rate 32 H 34 H 28 H Blood Pressure 146/83 H 135/80 132/71 Pulse Oximetry 91 L 92 L 96 10/23/18 19:46 10/23/18 19:47 10/23/18 20:00 Temperature 99.9 F H Pulse Rate 86 93 H Respiratory Rate 22 Blood Pressure 145/71 H Pulse Oximetry 95 96 10/23/18 20:30 10/23/18 20:31 10/23/18 21:00 Temperature Pulse Rate 89 96 H 97 H Respiratory Rate 25 H 20 22 Blood Pressure 140/82 153/75 H Pulse Oximetry 95 97 96 10/23/18 21:30 10/23/18 22:00 10/23/18 22:30 Temperature Pulse Rate 102 H 101 H 102 H Respiratory Rate 22 23 20 Blood Pressure 141/74 H 149/66 H 143/67 H Pulse Oximetry 94 L 93 L 90 L 10/23/18 22:45 10/23/18 23:00 10/23/18 23:30 Temperature Pulse Rate 96 H 94 H Respiratory Rate 23 34 H Blood Pressure 150/65 H 144/63 H Pulse Oximetry 97 97 98 10/23/18 23:45 10/24/18 00:00 10/24/18 00:30 Temperature Pulse Rate 98 H 93 H Respiratory Rate 28 H 17 Blood Pressure 143/87 H 140/74 Pulse Oximetry 95 95 95 10/24/18 01:00 10/24/18 01:30 10/24/18 02:00 Temperature Pulse Rate 91 H 90 95 H Respiratory Rate 22 22 23 Blood Pressure 127/65 130/71 136/81 Pulse Oximetry 95 95 94 L 10/24/18 02:30 10/24/18 03:00 10/24/18 03:30 Temperature Pulse Rate 91 H 88 88 Respiratory Rate 23 19 18 Blood Pressure 141/67 H 137/69 142/67 H Pulse Oximetry 94 L 96 97 10/24/18 04:00 10/24/18 04:30 10/24/18 05:00 Temperature Pulse Rate 85 86 82 Respiratory Rate 18 20 19 Blood Pressure 128/68 141/72 H 128/79 Pulse Oximetry 97 96 97 10/24/18 06:00 10/24/18 06:30 10/24/18 07:00 Temperature Pulse Rate 87 89 89 Respiratory Rate 22 22 20 Blood Pressure 145/73 H 149/78 H 167/76 H Pulse Oximetry 84 L 91 L 97 10/24/18 07:30 10/24/18 07:57 10/24/18 08:00 Temperature 98.8 F Pulse Rate 89 86 89 Respiratory Rate 18 19 17 Blood Pressure 139/71 142/62 H Pulse Oximetry 98 98 97 10/24/18 10:33 10/24/18 11:06 10/24/18 12:00 Temperature 96.5 F L Pulse Rate 98 H 92 H Respiratory Rate 20 Blood Pressure 138/69 Pulse Oximetry 97 98 10/24/18 13:46 Temperature 97.1 F L Pulse Rate 81 Respiratory Rate 20 Blood Pressure 131/63 Pulse Oximetry 99 Intake & Output 10/23/18 10/24/18 10/24/18 18:59 06:59 18:59 Intake Total 861 / 861 250 / 250 Output Total 600 / 600 700 / 700 Balance 261 / 261 -450 / -450 Weight 54 kg Intake: IV 111 / 111 Cardizem Inj 125 MG In NS Inj 100 ML @ 5 MG/HR 5 mls/hr IV. CONT TITRATE PRN Rx#:[id number] Magnesium Sulfate 1 gm/D5W 100 85 / 85 ml Premix 100 ML @ 100 mls/hr IV.SIG ONCE ONE Rx#:[id number] Oral 750 / 750 250 / 250 Output: Urine 600 / 600 700 / 700 Other: Date of Last Bowel Movement 10/23/18 10/23/18 10/23/18 # Bowel Movements 2 1 Narrative: GENERAL: Alert, NAD. Currently on BiPAP machine. SKIN: Warm and dry. HEAD: Normocephalic. EYES: No scleral icterus. No injection or drainage. NECK: Supple, trachea midline. No JVD or lymphadenopathy. CARDIOVASCULAR: Regular rate and rhythm without murmurs, gallops, or rubs. RESPIRATORY: moderate air entry, significantly decreased breath sound on the right basilar area. No accessory muscle use. GASTROINTESTINAL: Abdomen soft, non-tender, nondistended. MUSCULOSKELETAL: No cyanosis, or edema. BACK: Nontender without obvious deformity. No CVA tenderness. Results Procedures completed during hospitalization: None Labs on day of discharge: Labs from last 24 hours 10/24/18 10/23/18 10/23/18 12:09 20:22 16:19 POC Glucose 237 H 198 H 266 H Pleural RBC Pleural Nuc Cells Pleural Neutrophils Pleural Lymphocytes Pleural Histocytes Pleural Total Protein Pleural LDH Pleural Glucose 10/23/18 10/23/18 13:43 13:43 POC Glucose Pleural RBC 1418 H Pleural Nuc Cells 354 H Pleural Neutrophils 16 Pleural Lymphocytes 81 Pleural Histocytes 3 Pleural Total Protein 1.7 Pleural LDH 74 Pleural Glucose 264 Preliminary micro results at discharge 10/23/18 13:43 Body Fluid Culture - Preliminary Fluid - Pleural fluid No growth in 24 hours - Impressions ITS Impressions Abdomen Ultrasound 10/21/18 00:00 CONCLUSION: 1. Cirrhotic liver. Hepatic masses noted on CT exam are not well demonstrated on ultrasound. Again, Eovist MRI examination may be performed for further evaluation. 2. Bilateral renal cysts. Abdomen/Pelvis CT 10/21/18 00:00 CONCLUSION: 1. Cirrhotic appearing liver with numerous bilobar hepatic masses measuring up to 2.4 cm. Differential considerations include metastatic disease versus bilobar hepatocellular carcinoma. 2. New subcentimeter mesenteric nodule in the anterior right upper quadrant. Although nonspecific, mesenteric metastasis cannot be excluded. 3. Moderate stool in the ascending and transverse colon consistent with some degree of constipation. 4. Mild distention of the bladder with nonspecific prostate enlargement. This may reflect some degree of bladder outlet obstruction. 5. Sigmoid diverticulosis without evidence for diverticulitis. 6. Stable additional ancillary findings, as above. Chest CT 10/21/18 10:07 CONCLUSION: 1. Bilateral pleural effusions being moderate on the right and mild on the left. 2. Bibasilar areas of consolidation or atelectasis being worse in the right. There is also some involvement in the right middle lobe. 3. Nonspecific enlarged symptoms in the mediastinum. 4. Cirrhotic liver with what appear to be multiple masses. Chest X-Ray 10/23/18 00:00 CONCLUSION: No pneumothorax Thoracentesis Ultrasound 10/23/18 00:00 CONCLUSION: 1. Uncomplicated thoracentesis. Discharge Plan - Discharge Disposition Patient Disposition: 01 Discharge Home - Discharge Condition Condition: Good - Discharge Order Discharge Orders: Discharge Order (Routine); Ordered 10/24/18 Ordered By: Jada Ewing - Discharge Details Anticipated Discharge Date: 10/24/18 Discharge Comment: D/C home at 6PM. - Physicians Team Primary Care Provider: Claudia Richard Attending Provider: Jada Ewing Other Providers: Sallie Ng MD
[2018-10-24 19:24] VITALS: PULSE 109; RESP 18
== END 2018-10-24 20:00 | disposition home health service (06) ==
LOC: NEPE 09:45 → NEDA 12:14 → N04 14:07 → HIMC 19:05 → H7ONC 10-24 10:09
PROVIDERS: ADMIT Hospitalist; ATTEND Hospitalist

== ENCOUNTER 2018-11-24 01:30 | Inpatient (IN) ==
[2018-11-24 03:16] LABS: Baso % (Auto) 0.5 % (0.0-2.0); Eos # (Auto) 0.1 th/mm3 (0.0-0.4); Hematocrit 23.2 % (35.0-46.0); Hemoglobin 7.9 gm/dL (11.6-15.3); Lymph # (Auto) 1.1 th/mm3 (1.0-4.8); Lymph % (Auto) 17.7 % (9.0-44.0); Mean Corpuscular HGB Conc 33.9 % (32.0-36.0); Mean Corpuscular Hemoglobin 30.7 pg (27.0-34.0); Mean Corpuscular Volume 90.5 fL (80.0-100.0); Mean Platelet Volume 8.3 fL (7.0-11.0); Mono # (Auto) 0.7 th/mm3 (0.0-0.9); Mono % (Auto) 12.2 % (0.0-8.0); Neut # (Auto) 4.2 th/mm3 (1.8-7.7); Neut % (Auto) 68.6 % (16.0-70.0); Platelet Count 101 th/mm3 (150-450); Red Blood Count 2.57 mil/mm3 (4.00-5.30); Red Cell Distribution Width 18.2 % (11.6-17.2); White Blood Count 6.2 th/mm3 (4.0-11.0)
--- NOTE | 2018-11-24 03:23 | XR ---
EXAM DATE: 11/24/2018 3:13 AM EST AGE/SEX: 83 years / Female INDICATIONS: Short of breath. CLINICAL DATA: This is the patient's initial encounter. Patient reports that signs and symptoms have been present for 1 day and indicates a pain score of 0/10. MEDICAL/SURGICAL HISTORY: . Cirrhosis. Diabetes. Hepatitis C. Afib. Asthma. CAD. CHF. CKD. COPD . HTN. OR. Camcer, renal. Cancer, liver. . Pacemaker. Cholecystectomy. Coronary artery stent. COMPARISON: [facility] [place], CHEST 1V SINGLE AP, 10/21/2018. . FINDINGS: Parenchymal consolidation and small pleural effusion seen at each lung base, about the same to slight ly improved on the right and modestly worse on the left since September. No pneumothorax seen. Heart size stable, within normal limits. Cardiac pacer again noted. CONCLUSION: Bibasilar consolidation and small effusions. Electronically signed by: Ismael Calderón MD Board Certified Radiologist 11/24/2018 3:22 AM EST
[2018-11-24 03:34] LABS: Albumin 2.8 g/dL (3.4-5.0); Anion Gap 6 meq/L (5-15); Aspartate Aminotransferase 48 U/L (15-37); Blood Urea Nitrogen 22 mg/dL (7-18); Calcium 8.1 mg/dL (8.5-10.1); Carbon Dioxide 35.5 meq/L (21.0-32.0); Chloride 99 meq/L (98-107); Glomerular Filtration Rate 32 mL/min (>89); Glucose,Random 136 mg/dL (74-106); Sodium 140 meq/L (136-145)
[2018-11-24 03:40] LABS: Alanine Aminotransferase 25 U/L (10-53); Alkaline Phosphatase 110 U/L (45-117); Total Protein 8.6 g/dL (6.4-8.2)
[2018-11-24] MEDS ORDERED: Sodium Chlor 0.9% Inj 250 ML IV.SIG SCH (04:00)
--- NOTE | 2018-11-24 04:49 | ED ---
HPI General Chief Complaint: Chest Pain Stated Complaint: Chest tightness, diff breathing Time Seen by Provider: 11/24/18 02:31 Source: patient Mode of arrival: ambulatory Limitations: no limitations History of Present Illness 83-year-old female came to the emergency room brought by her family with his of sudden onset of shortness of breath and chest tightness 1 hour prior to coming to the emergency room. Patient has significant history of COPD, CHF, liver mass with possible liver cancer. His granddaughter is here and she says that patient was admitted for something similar 1 month back. At that time during her discharge apparently she was told that she has only a few months to live. Granddaughter says that patient requires 3 and half liters of oxygen at home. When she developed her symptoms last night she noticed that her oxygen tubing was not connected to the machine. Once the oxygen got connected patient still continued to have the symptoms although currently she says she feels better. Patient has history of anemia and apparently she had gone to get blood transfusion last week but was told that her hemoglobin was 8.5 and hence does not require transfusion yet. Currently patient is not complaining of any chest pain. There is a language barrier and the granddaughter is translating the history. No radiation of the pain. Related Data Home Medications Medication Instructions Recorded Confirmed diltiazem HCl 180 mg PO TID 08/13/18 11/24/18 sitagliptin [Januvia] 50 mg PO DAILY 08/13/18 11/24/18 albuterol sulfate [ProAir HFA] 2 puff INHALATION Q4-6H PRN 09/06/18 11/24/18 arformoterol [Brovana] 1 puff INHALATION BID 09/06/18 11/24/18 budesonide-formoterol [Symbicort] 2 puff INHALATION BID 09/06/18 11/24/18 ferrous gluconate 270 mg PO DAILY 09/06/18 11/24/18 insulin aspart U-100 [Novolog 1 sliding scale dose SUBCUT UD PRN 09/06/18 PenFill U-100 Insulin] insulin degludec [Tresiba 20 unit SUBCUT DAILY 09/06/18 11/24/18 FlexTouch U-100] ipratropium-albuterol 3 ml INHALATION Q12HR 10/02/18 11/24/18 levothyroxine 125 mcg PO DAILY 10/02/18 11/24/18 digoxin [Lanoxin] 0.125 mg PO EVERY OTHER DAY 10/21/18 11/24/18 metoprolol succinate [Toprol XL] 25 mg PO Q12HR 10/21/18 11/24/18 ranitidine HCl [Zantac] 150 mg PO DAILY 10/21/18 11/24/18 sucralfate [Carafate] 1 g PO Q6H 10/21/18 11/24/18 Previous Rx's Medication Instructions Recorded bumetanide 1 mg PO BID #0 tab 10/24/18 Allergies Allergy/AdvReac Type Severity Reaction Status Date / Time penicillin G Allergy Severe Anaphylaxis Verified 11/24/18 01:35 Iodinated Contrast- Oral and AdvReac Severe Hives Verified 11/24/18 01:35 IV Dye levofloxacin AdvReac Severe Confusion Verified 11/24/18 01:35 Quinolones AdvReac Severe Confusion Verified 11/24/18 01:35 verapamil AdvReac Severe Nausea/Vomi Verified 11/24/18 01:35 ting Review of Systems ROS: all other systems reviewed are negative [facility] Social History Social History Substance History: No History of Abuse Second Hand Smoke Exposure: No Smoking Status: Never smoker How Often Do You Have a Drink Containing Alcohol: Never Hx Recent Travel: No Immunization History Tetanus Immunization: >5 Years Exam Narrative Exam Narrative: GENERAL: Awake, alert, elderly, frail, moderate distress SKIN: Focused skin assessment warm/dry. Pale HEAD: Atraumatic. Normocephalic. EYES: Pupils equal and round. No scleral icterus. No injection or drainage. Conjunctival pallor ENT: No nasal bleeding or discharge. Mucous membranes pink and moist. NECK: Trachea midline. No JVD. CARDIOVASCULAR: Regular rate and rhythm. No murmur appreciated. RESPIRATORY: No accessory muscle use. Bibasilar rales GASTROINTESTINAL: Abdomen soft, non-tender, nondistended. Hepatic and splenic margins not palpable. MUSCULOSKELETAL: No obvious deformities. No clubbing. No cyanosis. 2+ pedal edema NEUROLOGICAL: Awake and alert. No obvious cranial nerve deficits. Motor grossly within normal limits. Normal speech. PSYCHIATRIC: Appropriate mood and affect; insight and judgment normal. Course Reevaluation(s) Reevaluation #1: Patient signed out to me by Dr. Bal this morning; the patient was given blood transfusion for symptomatic anemia, required several doses of lasix during/ following transfusion but had rapid A fib requiring multiple doses of IV cardizem for rate control. Also given home rate control meds. Patient now complains of nausea and had 1 episode of vomiting while here. She will need continued diuresis. Case discussed with Dr. Neil of [facility]. Time: 14:58 Initial Documented Vital Signs Temperature 98.2 F 11/24/18 01:35 Pulse Rate 86 11/24/18 01:35 Respiratory Rate 27 H 11/24/18 01:35 Blood Pressure 144/80 H 11/24/18 01:35 Pulse Oximetry 99 11/24/18 01:35 Last Documented Vital Signs Temperature 98.2 F 11/27/18 16:00 Pulse Rate 88 11/27/18 16:00 Respiratory Rate 16 11/27/18 16:00 Blood Pressure 133/63 11/27/18 16:00 Pulse Oximetry 98 11/27/18 16:00 Medical Decision Making MDM Narrative Medical decision making narrative: 4:55 AM blood test results are back and hemoglobin is 7.5. Potassium is 3.0. I have ordered for p.o. potassium replacement and 2 units of PRBC transfusion. Chest x-ray shows bilateral pleural effusion that as per the radiologist is not significantly changed from the last x-ray. Patient was given 40 mg of IV Lasix. I have ordered another 20 mg of Lasix in between the 2 units of blood transfusion. Patient could be discharged home after the blood transfusion. Case will be signed over to the oncoming ER physician to discharge her after reassessing her post transfusion. Medical Screen Exam Complete: Yes Emergency Medical Condition: Yes Lab Data Result diagrams: 11/27/18 16:34 11/25/18 14:06 Lab Results 11/24/18 11/24/18 11/24/18 Range/Units 02:25 02:25 02:35 WBC (4.0-11.0) th/mm3 RBC (4.00-5.30) mil/mm3 Hgb (11.6-15.3) gm/dL Hct (35.0-46.0) % MCV (80.0-100.0) fL MCH (27.0-34.0) pg MCHC (32.0-36.0) % RDW (11.6-17.2) % Plt Count (150-450) th/mm3 MPV (7.0-11.0) fL Prelim Diff (Auto) Neut % (Auto) (16.0-70.0) % Lymph % (Auto) (9.0-44.0) % Ada % (Auto) (0.0-8.0) % Eos % (Auto) (0.0-4.0) % Baso % (Auto) (0.0-2.0) % Neut # (Auto) (1.8-7.7) th/mm3 Lymph # (Auto) (1.0-4.8) th/mm3 Ada # (Auto) (0.0-0.9) th/mm3 Eos # (Auto) (0.0-0.4) th/mm3 Baso # (Auto) (0.0-0.2) th/mm3 WBC Differential Diff Scan Differential Comment Platelet Estimate (Normal) Platelet Morphology (Normal) Dang-Corinth Bodies (None) Sodium (136-145) meq/L Potassium (3.5-5.1) meq/L Chloride (98-107) meq/L Carbon Dioxide (21.0-32.0) meq/L Anion Gap (5-15) meq/L BUN (7-18) mg/dL Creatinine (0.50-1.00) mg/dL Estimated GFR (>89) mL/min POC Glucose (68-110) mg/dl Random Glucose (74-106) mg/dL Calcium (8.5-10.1) mg/dL Total Bilirubin (0.2-1.0) mg/dL Direct Bilirubin (0.0-0.2) mg/dL AST (15-37) U/L ALT (10-53) U/L Alkaline Phosphatase (45-117) U/L Total Creatine Kinase (26-192) U/L Troponin I (0.02-0.05) ng/mL B-Natriuretic Peptide 793 H (0-100) pg/mL Total Protein (6.4-8.2) g/dL Albumin (3.4-5.0) g/dL Digoxin (0.8-2.0) ng/mL Blood Type O Positive Antibody Screen Positive H Antibody Identification Rout Panel Path Interp Antigen Identification Cancelled Direct Antiglob Test Negative (Negative) MTS Gel Crossmatch See Detail Bld Prod Order Comment 11/24/18 11/24/18 11/24/18 Range/Units 02:35 02:35 04:08 WBC 6.2 (4.0-11.0) th/mm3 RBC 2.57 L (4.00-5.30) mil/mm3 Hgb 7.9 L (11.6-15.3) gm/dL Hct 23.2 L (35.0-46.0) % MCV 90.5 (80.0-100.0) fL MCH 30.7 (27.0-34.0) pg MCHC 33.9 (32.0-36.0) % RDW 18.2 H (11.6-17.2) % Plt Count 101 L (150-450) th/mm3 MPV 8.3 (7.0-11.0) fL Prelim Diff (Auto) Neut % (Auto) 68.6 (16.0-70.0) % Lymph % (Auto) 17.7 (9.0-44.0) % Ada % (Auto) 12.2 H (0.0-8.0) % Eos % (Auto) 1.0 (0.0-4.0) % Baso % (Auto) 0.5 (0.0-2.0) % Neut # (Auto) 4.2 (1.8-7.7) th/mm3 Lymph # (Auto) 1.1 (1.0-4.8) th/mm3 Ada # (Auto) 0.7 (0.0-0.9) th/mm3 Eos # (Auto) 0.1 (0.0-0.4) th/mm3 Baso # (Auto) 0.0 (0.0-0.2) th/mm3 WBC Differential . Diff Scan Differential Comment Auto diff final Platelet Estimate (Normal) Platelet Morphology (Normal) Dang-Corinth Bodies (None) Sodium 140 (136-145) meq/L Potassium 3.0 L (3.5-5.1) meq/L Chloride 99 (98-107) meq/L Carbon Dioxide 35.5 H (21.0-32.0) meq/L Anion Gap 6 (5-15) meq/L BUN 22 H (7-18) mg/dL Creatinine 1.53 H (0.50-1.00) mg/dL Estimated GFR 32 L (>89) mL/min POC Glucose (68-110) mg/dl Random Glucose 136 H (74-106) mg/dL Calcium 8.1 L (8.5-10.1) mg/dL Total Bilirubin 0.9 (0.2-1.0) mg/dL Direct Bilirubin 0.5 H (0.0-0.2) mg/dL AST 48 H (15-37) U/L ALT 25 (10-53) U/L Alkaline Phosphatase 110 (45-117) U/L Total Creatine Kinase (26-192) U/L Troponin I Less than 0.02 L (0.02-0.05) ng/mL B-Natriuretic Peptide (0-100) pg/mL Total Protein 8.6 H (6.4-8.2) g/dL Albumin 2.8 L (3.4-5.0) g/dL Digoxin (0.8-2.0) ng/mL Blood Type Antibody Screen Antibody Identification Anti-C Rout Panel Path Interp Antigen Identification Direct Antiglob Test (Negative) MTS Gel Crossmatch Bld Prod Order Comment 11/24/18 11/24/18 11/24/18 Range/Units 07:25 16:20 18:03 WBC (4.0-11.0) th/mm3 RBC (4.00-5.30) mil/mm3 Hgb (11.6-15.3) gm/dL Hct (35.0-46.0) % MCV (80.0-100.0) fL MCH (27.0-34.0) pg MCHC (32.0-36.0) % RDW (11.6-17.2) % Plt Count (150-450) th/mm3 MPV (7.0-11.0) fL Prelim Diff (Auto) Neut % (Auto) (16.0-70.0) % Lymph % (Auto) (9.0-44.0) % Ada % (Auto) (0.0-8.0) % Eos % (Auto) (0.0-4.0) % Baso % (Auto) (0.0-2.0) % Neut # (Auto) (1.8-7.7) th/mm3 Lymph # (Auto) (1.0-4.8) th/mm3 Ada # (Auto) (0.0-0.9) th/mm3 Eos # (Auto) (0.0-0.4) th/mm3 Baso # (Auto) (0.0-0.2) th/mm3 WBC Differential Diff Scan Differential Comment Platelet Estimate (Normal) Platelet Morphology (Normal) Dang-Corinth Bodies (None) Sodium (136-145) meq/L Potassium (3.5-5.1) meq/L Chloride (98-107) meq/L Carbon Dioxide (21.0-32.0) meq/L Anion Gap (5-15) meq/L BUN (7-18) mg/dL Creatinine (0.50-1.00) mg/dL Estimated GFR (>89) mL/min POC Glucose 139 H (68-110) mg/dl Random Glucose (74-106) mg/dL Calcium (8.5-10.1) mg/dL Total Bilirubin (0.2-1.0) mg/dL Direct Bilirubin (0.0-0.2) mg/dL AST (15-37) U/L ALT (10-53) U/L Alkaline Phosphatase (45-117) U/L Total Creatine Kinase 88 (26-192) U/L Troponin I 0.03 (0.02-0.05) ng/mL B-Natriuretic Peptide (0-100) pg/mL Total Protein (6.4-8.2) g/dL Albumin (3.4-5.0) g/dL Digoxin (0.8-2.0) ng/mL Blood Type Antibody Screen Antibody Identification Rout Panel Path Interp Antigen Identification C Antigen - NEGATIVE Direct Antiglob Test (Negative) MTS Gel Crossmatch Bld Prod Order Comment 11/24/18 11/24/18 11/24/18 Range/Units 21:06 21:13 22:48 WBC (4.0-11.0) th/mm3 RBC (4.00-5.30) mil/mm3 Hgb (11.6-15.3) gm/dL Hct (35.0-46.0) % MCV (80.0-100.0) fL MCH (27.0-34.0) pg MCHC (32.0-36.0) % RDW (11.6-17.2) % Plt Count (150-450) th/mm3 MPV (7.0-11.0) fL Prelim Diff (Auto) Neut % (Auto) (16.0-70.0) % Lymph % (Auto) (9.0-44.0) % Ada % (Auto) (0.0-8.0) % Eos % (Auto) (0.0-4.0) % Baso % (Auto) (0.0-2.0) % Neut # (Auto) (1.8-7.7) th/mm3 Lymph # (Auto) (1.0-4.8) th/mm3 Ada # (Auto) (0.0-0.9) th/mm3 Eos # (Auto) (0.0-0.4) th/mm3 Baso # (Auto) (0.0-0.2) th/mm3 WBC Differential Diff Scan Differential Comment Platelet Estimate (Normal) Platelet Morphology (Normal) Dang-Corinth Bodies (None) Sodium (136-145) meq/L Potassium (3.5-5.1) meq/L Chloride (98-107) meq/L Carbon Dioxide (21.0-32.0) meq/L Anion Gap (5-15) meq/L BUN (7-18) mg/dL Creatinine (0.50-1.00) mg/dL Estimated GFR (>89) mL/min POC Glucose 175 H 180 H (68-110) mg/dl Random Glucose (74-106) mg/dL Calcium (8.5-10.1) mg/dL Total Bilirubin (0.2-1.0) mg/dL Direct Bilirubin (0.0-0.2) mg/dL AST (15-37) U/L ALT (10-53) U/L Alkaline Phosphatase (45-117) U/L Total Creatine Kinase 96 (26-192) U/L Troponin I 0.03 (0.02-0.05) ng/mL B-Natriuretic Peptide (0-100) pg/mL Total Protein (6.4-8.2) g/dL Albumin (3.4-5.0) g/dL Digoxin (0.8-2.0) ng/mL Blood Type Antibody Screen Antibody Identification Rout Panel Path Interp Antigen Identification Direct Antiglob Test (Negative) MTS Gel Crossmatch Bld Prod Order Comment 11/25/18 11/25/18 11/25/18 Range/Units 07:07 07:53 13:20 WBC 8.8 (4.0-11.0) th/mm3 RBC 3.98 L (4.00-5.30) mil/mm3 Hgb 12.2 D (11.6-15.3) gm/dL Hct 35.8 (35.0-46.0) % MCV 89.8 (80.0-100.0) fL MCH 30.6 (27.0-34.0) pg MCHC 34.0 (32.0-36.0) % RDW 17.5 H (11.6-17.2) % Plt Count 87 L (150-450) th/mm3 MPV 8.5 (7.0-11.0) fL Prelim Diff (Auto) Slide review pending Neut % (Auto) 77.6 H (16.0-70.0) % Lymph % (Auto) 8.2 L (9.0-44.0) % Ada % (Auto) 13.5 H (0.0-8.0) % Eos % (Auto) 0.3 (0.0-4.0) % Baso % (Auto) 0.4 (0.0-2.0) % Neut # (Auto) 6.8 (1.8-7.7) th/mm3 Lymph # (Auto) 0.7 L (1.0-4.8) th/mm3 Ada # (Auto) 1.2 H (0.0-0.9) th/mm3 Eos # (Auto) 0.0 (0.0-0.4) th/mm3 Baso # (Auto) 0.0 (0.0-0.2) th/mm3 WBC Differential . Diff Scan Auto diff confirmed Differential Comment . Platelet Estimate Low L (Normal) Platelet Morphology Normal (Normal) Dang-Corinth Bodies Present H (None) Sodium (136-145) meq/L Potassium (3.5-5.1) meq/L Chloride (98-107) meq/L Carbon Dioxide (21.0-32.0) meq/L Anion Gap (5-15) meq/L BUN (7-18) mg/dL Creatinine (0.50-1.00) mg/dL Estimated GFR (>89) mL/min POC Glucose 157 H 207 H (68-110) mg/dl Random Glucose (74-106) mg/dL Calcium (8.5-10.1) mg/dL Total Bilirubin (0.2-1.0) mg/dL Direct Bilirubin (0.0-0.2) mg/dL AST (15-37) U/L ALT (10-53) U/L Alkaline Phosphatase (45-117) U/L Total Creatine Kinase (26-192) U/L Troponin I (0.02-0.05) ng/mL B-Natriuretic Peptide (0-100) pg/mL Total Protein (6.4-8.2) g/dL Albumin (3.4-5.0) g/dL Digoxin (0.8-2.0) ng/mL Blood Type Antibody Screen Antibody Identification Rout Panel Path Interp Antigen Identification Direct Antiglob Test (Negative) MTS Gel Crossmatch Bld Prod Order Comment 11/25/18 11/25/18 11/25/18 Range/Units 14:06 18:10 20:45 WBC (4.0-11.0) th/mm3 RBC (4.00-5.30) mil/mm3 Hgb 10.9 L (11.6-15.3) gm/dL Hct 31.7 L (35.0-46.0) % MCV (80.0-100.0) fL MCH (27.0-34.0) pg MCHC (32.0-36.0) % RDW (11.6-17.2) % Plt Count (150-450) th/mm3 MPV (7.0-11.0) fL Prelim Diff (Auto) Neut % (Auto) (16.0-70.0) % Lymph % (Auto) (9.0-44.0) % Ada % (Auto) (0.0-8.0) % Eos % (Auto) (0.0-4.0) % Baso % (Auto) (0.0-2.0) % Neut # (Auto) (1.8-7.7) th/mm3 Lymph # (Auto) (1.0-4.8) th/mm3 Ada # (Auto) (0.0-0.9) th/mm3 Eos # (Auto) (0.0-0.4) th/mm3 Baso # (Auto) (0.0-0.2) th/mm3 WBC Differential Diff Scan Differential Comment Platelet Estimate (Normal) Platelet Morphology (Normal) Dang-Cor[place] Bodies (None) Sodium 137 (136-145) meq/L Potassium 4.1 D (3.5-5.1) meq/L Chloride 97 L (98-107) meq/L Carbon Dioxide 29.9 (21.0-32.0) meq/L Anion Gap 10 (5-15) meq/L BUN 30 H (7-18) mg/dL Creatinine 1.68 H (0.50-1.00) mg/dL Estimated GFR 29 L (>89) mL/min POC Glucose 227 H (68-110) mg/dl Random Glucose 209 H (74-106) mg/dL Calcium 8.3 L (8.5-10.1) mg/dL Total Bilirubin 3.0 H (0.2-1.0) mg/dL Direct Bilirubin (0.0-0.2) mg/dL AST 60 H (15-37) U/L ALT 23 (10-53) U/L Alkaline Phosphatase 91 (45-117) U/L Total Creatine Kinase (26-192) U/L Troponin I (0.02-0.05) ng/mL B-Natriuretic Peptide (0-100) pg/mL Total Protein 8.5 H (6.4-8.2) g/dL Albumin 2.7 L (3.4-5.0) g/dL Digoxin Less than 0.1 L (0.8-2.0) ng/mL Blood Type Antibody Screen Antibody Identification Rout Panel Path Interp Antigen Identification Direct Antiglob Test (Negative) MTS Gel Crossmatch Bld Prod Order Comment 11/25/18 11/26/18 11/26/18 Range/Units 21:59 05:00 08:19 WBC (4.0-11.0) th/mm3 RBC (4.00-5.30) mil/mm3 Hgb 11.0 L (11.6-15.3) gm/dL Hct 32.7 L (35.0-46.0) % MCV (80.0-100.0) fL MCH (27.0-34.0) pg MCHC (32.0-36.0) % RDW (11.6-17.2) % Plt Count (150-450) th/mm3 MPV (7.0-11.0) fL Prelim Diff (Auto) Neut % (Auto) (16.0-70.0) % Lymph % (Auto) (9.0-44.0) % Ada % (Auto) (0.0-8.0) % Eos % (Auto) (0.0-4.0) % Baso % (Auto) (0.0-2.0) % Neut # (Auto) (1.8-7.7) th/mm3 Lymph # (Auto) (1.0-4.8) th/mm3 Ada # (Auto) (0.0-0.9) th/mm3 Eos # (Auto) (0.0-0.4) th/mm3 Baso # (Auto) (0.0-0.2) th/mm3 WBC Differential Diff Scan Differential Comment Platelet Estimate (Normal) Platelet Morphology (Normal) Dang-[place] Bodies (None) Sodium (136-145) meq/L Potassium (3.5-5.1) meq/L Chloride (98-107) meq/L Carbon Dioxide (21.0-32.0) meq/L Anion Gap (5-15) meq/L BUN (7-18) mg/dL Creatinine (0.50-1.00) mg/dL Estimated GFR (>89) mL/min POC Glucose 245 H 176 H (68-110) mg/dl Random Glucose (74-106) mg/dL Calcium (8.5-10.1) mg/dL Total Bilirubin (0.2-1.0) mg/dL Direct Bilirubin (0.0-0.2) mg/dL AST (15-37) U/L ALT (10-53) U/L Alkaline Phosphatase (45-117) U/L Total Creatine Kinase (26-192) U/L Troponin I (0.02-0.05) ng/mL B-Natriuretic Peptide (0-100) pg/mL Total Protein (6.4-8.2) g/dL Albumin (3.4-5.0) g/dL Digoxin (0.8-2.0) ng/mL Blood Type Antibody Screen Antibody Identification Rout Panel Path Interp Antigen Identification Direct Antiglob Test (Negative) MTS Gel Crossmatch Bld Prod Order Comment 11/26/18 11/26/18 11/26/18 Range/Units 12:00 17:27 21:19 WBC (4.0-11.0) th/mm3 RBC (4.00-5.30) mil/mm3 Hgb (11.6-15.3) gm/dL Hct (35.0-46.0) % MCV (80.0-100.0) fL MCH (27.0-34.0) pg MCHC (32.0-36.0) % RDW (11.6-17.2) % Plt Count (150-450) th/mm3 MPV (7.0-11.0) fL Prelim Diff (Auto) Neut % (Auto) (16.0-70.0) % Lymph % (Auto) (9.0-44.0) % Ada % (Auto) (0.0-8.0) % Eos % (Auto) (0.0-4.0) % Baso % (Auto) (0.0-2.0) % Neut # (Auto) (1.8-7.7) th/mm3 Lymph # (Auto) (1.0-4.8) th/mm3 Ada # (Auto) (0.0-0.9) th/mm3 Eos # (Auto) (0.0-0.4) th/mm3 Baso # (Auto) (0.0-0.2) th/mm3 WBC Differential Diff Scan Differential Comment Platelet Estimate (Normal) Platelet Morphology (Normal) Dang-[place] Bodies (None) Sodium (136-145) meq/L Potassium (3.5-5.1) meq/L Chloride (98-107) meq/L Carbon Dioxide (21.0-32.0) meq/L Anion Gap (5-15) meq/L BUN (7-18) mg/dL Creatinine (0.50-1.00) mg/dL Estimated GFR (>89) mL/min POC Glucose 202 H 178 H 161 H (68-110) mg/dl Random Glucose (74-106) mg/dL Calcium (8.5-10.1) mg/dL Total Bilirubin (0.2-1.0) mg/dL Direct Bilirubin (0.0-0.2) mg/dL AST (15-37) U/L ALT (10-53) U/L Alkaline Phosphatase (45-117) U/L Total Creatine Kinase (26-192) U/L Troponin I (0.02-0.05) ng/mL B-Natriuretic Peptide (0-100) pg/mL Total Protein (6.4-8.2) g/dL Albumin (3.4-5.0) g/dL Digoxin (0.8-2.0) ng/mL Blood Type Antibody Screen Antibody Identification Rout Panel Path Interp Antigen Identification Direct Antiglob Test (Negative) MTS Gel Crossmatch Bld Prod Order Comment 11/27/18 11/27/18 11/27/18 Range/Units 08:16 12:21 16:34 WBC 7.3 (4.0-11.0) th/mm3 RBC 3.57 L (4.00-5.30) mil/mm3 Hgb 10.9 L (11.6-15.3) gm/dL Hct 32.7 L (35.0-46.0) % MCV 91.5 (80.0-100.0) fL MCH 30.5 (27.0-34.0) pg MCHC 33.3 (32.0-36.0) % RDW 17.9 H (11.6-17.2) % Plt Count 112 L (150-450) th/mm3 MPV 8.8 (7.0-11.0) fL Prelim Diff (Auto) Neut % (Auto) 74.7 H (16.0-70.0) % Lymph % (Auto) 11.4 (9.0-44.0) % Ada % (Auto) 13.0 H (0.0-8.0) % Eos % (Auto) 0.6 (0.0-4.0) % Baso % (Auto) 0.3 (0.0-2.0) % Neut # (Auto) 5.4 (1.8-7.7) th/mm3 Lymph # (Auto) 0.8 L (1.0-4.8) th/mm3 Ada # (Auto) 0.9 (0.0-0.9) th/mm3 Eos # (Auto) 0.0 (0.0-0.4) th/mm3 Baso # (Auto) 0.0 (0.0-0.2) th/mm3 WBC Differential . Diff Scan Differential Comment Auto diff final Platelet Estimate (Normal) Platelet Morphology (Normal) Dang-[place] Bodies (None) Sodium (136-145) meq/L Potassium (3.5-5.1) meq/L Chloride (98-107) meq/L Carbon Dioxide (21.0-32.0) meq/L Anion Gap (5-15) meq/L BUN (7-18) mg/dL Creatinine (0.50-1.00) mg/dL Estimated GFR (>89) mL/min POC Glucose 156 H 168 H (68-110) mg/dl Random Glucose (74-106) mg/dL Calcium (8.5-10.1) mg/dL Total Bilirubin (0.2-1.0) mg/dL Direct Bilirubin (0.0-0.2) mg/dL AST (15-37) U/L ALT (10-53) U/L Alkaline Phosphatase (45-117) U/L Total Creatine Kinase (26-192) U/L Troponin I (0.02-0.05) ng/mL B-Natriuretic Peptide (0-100) pg/mL Total Protein (6.4-8.2) g/dL Albumin (3.4-5.0) g/dL Digoxin (0.8-2.0) ng/mL Blood Type Antibody Screen Antibody Identification Rout Panel Path Interp Antigen Identification Direct Antiglob Test (Negative) MTS Gel Crossmatch Bld Prod Order Comment 11/27/18 Range/Units 17:27 WBC (4.0-11.0) th/mm3 RBC (4.00-5.30) mil/mm3 Hgb (11.6-15.3) gm/dL Hct (35.0-46.0) % MCV (80.0-100.0) fL MCH (27.0-34.0) pg MCHC (32.0-36.0) % RDW (11.6-17.2) % Plt Count (150-450) th/mm3 MPV (7.0-11.0) fL Prelim Diff (Auto) Neut % (Auto) (16.0-70.0) % Lymph % (Auto) (9.0-44.0) % Ada % (Auto) (0.0-8.0) % Eos % (Auto) (0.0-4.0) % Baso % (Auto) (0.0-2.0) % Neut # (Auto) (1.8-7.7) th/mm3 Lymph # (Auto) (1.0-4.8) th/mm3 Ada # (Auto) (0.0-0.9) th/mm3 Eos # (Auto) (0.0-0.4) th/mm3 Baso # (Auto) (0.0-0.2) th/mm3 WBC Differential Diff Scan Differential Comment Platelet Estimate (Normal) Platelet Morphology (Normal) Dang-[place] Bodies (None) Sodium (136-145) meq/L Potassium (3.5-5.1) meq/L Chloride (98-107) meq/L Carbon Dioxide (21.0-32.0) meq/L Anion Gap (5-15) meq/L BUN (7-18) mg/dL Creatinine (0.50-1.00) mg/dL Estimated GFR (>89) mL/min POC Glucose 226 H (68-110) mg/dl Random Glucose (74-106) mg/dL Calcium (8.5-10.1) mg/dL Total Bilirubin (0.2-1.0) mg/dL Direct Bilirubin (0.0-0.2) mg/dL AST (15-37) U/L ALT (10-53) U/L Alkaline Phosphatase (45-117) U/L Total Creatine Kinase (26-192) U/L Troponin I (0.02-0.05) ng/mL B-Natriuretic Peptide (0-100) pg/mL Total Protein (6.4-8.2) g/dL Albumin (3.4-5.0) g/dL Digoxin (0.8-2.0) ng/mL Blood Type Antibody Screen Antibody Identification Rout Panel Path Interp Antigen Identification Direct Antiglob Test (Negative) MTS Gel Crossmatch Bld Prod Order Comment Imaging Data Radiologist's impression: Chest X-Ray 11/24/18 02:40 CONCLUSION: Bibasilar consolidation and small effusions. ECG Data Attestation: I personally reviewed and interpreted this ECG as follows: Interpretation: Twelve-lead EKG was reviewed by me. Atrial fibrillation, PVC, normal axis. Heart rate of 95 bpm. Discharge Plan Discharge Disposition Patient Disposition: ED Admit(ED Internal Use Only) Discharge Condition Condition: Stable Discharge Order Discharge Orders: Discharge Order (Routine); Ordered 11/27/18 Ordered By: Anna Marie Schaefer ED Use Only Admit Order (Routine); Ordered 11/24/18 Ordered By: Fatimah Arzate Discharge Details Anticipated Discharge Date: 11/27/18 Discharge Comment: Discharge pending echo results and Hem/Onc clearance Diagnosis: CHF (congestive heart failure), Atrial fibrillation, Anemia requiring transfusions Physicians Team ED Provider: Dhiraj Bal Primary Care Provider: UNKNOWN, Attending Provider: Emilie Angeles Other Providers: Bandar Queen ; Oscar Eisenberg ; Krish Stewart Status ED Status: Left Department Discharge Information Discharge Date/Time: 11/24/18 15:40
[2018-11-24] MEDS ORDERED: dilTIAZem CD 180 MG Capsule PO ONE (11:27)
[2018-11-24] MEDS ORDERED: Metoprolol Inj 5 MG/5 ML Vial IV.PUSH ONE (12:49)
[2018-11-24] MEDS ORDERED: Acetaminophen 325 MG Tablet PO PRN ×2 (15:10→15:48)
[2018-11-24] MEDS ORDERED: Dextrose 50% in Water 50 ML Vial IV.PUSH PRN (15:10)
--- NOTE | 2018-11-24 15:55 | P.HP ---
History of Present Illness Primary Care Physician: UNKNOWN Chief Complaint: Shortness of breath History of Present Illness: 83-year-old female who past medical history of CHF, COPD on chronic oxygen dependent, liver disease, CAD, atrial fibrillation and hypertension was brought to the ED for evaluation of an acute onset of shortness of breath last night. Apparently, per patient's granddaughter she had malfunctioning oxygen tank for at least 30 minutes and went into shortness of breath. While in the ED , patient was found to have H&H of 7.9/23.2 for which she was transfused 2 units packed red blood cell, however this resulted in severe pulmonary conditions requiring diuresis with multiple doses of Lasix. Patient also went to A. fib with RVR requiring IV Cardizem push x several doses. Per patient's granddaughter, during my exam she reported improvement of lower extremity swelling and patient denies any chest pain or shortness of breath. Complains of leg pain. There is no GI bleed. Review of Systems All other systems reviewed negative except as stated in HPI PMFSH - History History Provided By: Patient, Family Member - Medical History Medical History: Medical History (Last Reviewed 11/24/18 @ 01:36 by Carolina Palacios RN) Afib Asthma CAD (coronary artery disease) CHF (congestive heart failure) CKD (chronic kidney disease) COPD (chronic obstructive pulmonary disease) Cirrhosis Diabetes HTN (hypertension) Hepatitis C Myocardial infarction Pacemaker - Surgical History Surgical History: Surgical History (Last Reviewed 11/24/18 @ 01:36 by Carolina Palacios RN) History of cholecystectomy History of heart artery stent - Family History Family History: Family History (Last Reviewed 10/25/18 @ 07:41 by Bia Harden MD) Other HTN (hypertension) - Tobacco History Second Hand Smoke Exposure: No Smoking Status: Never smoker - Alcohol History How Often Do You Have a Drink Containing Alcohol: Never - Substance Use History Substance History: No History of Abuse - Travel History History of Recent Travel: No Recent Travel in the [place] Within the Last 8 Weeks: No Recent Travel Out of the Country Within the Last 8 Weeks: No - Immunization History Tetanus Immunization: >5 Years Medications and Allergies Active Medications: Active Medications Acetaminophen (Tylenol) 650 mg PO Q4H PRN PRN Reason: PAIN 1-10 AND/OR FEVER >101F Al Hydroxide/Mg Hydroxide (Milk Of Jaya Guevara) 30 ml PO Q12H PRN PRN Reason: Mild Constipation Albuterol (Duoneb Neb (Prn)) 1 ampul NEB Q2HR NEB PRN PRN Reason: SHORTNESS OF BREATH Apixaban (Eliquis) 2.5 mg PO BID SHAKIRA Budesonide/Formoterol Fumarate (Symbicort 160/4.5 Mcg Inh) 2 puff INH BID SHAKIRA Bumetanide (Bumex Inj) 1 mg IV.PUSH BID@0900,1800 SHAKIRA Dextrose (D50w Vial) 50 ml IV.PUSH UNSCH PRN PRN Reason: PER HYPOGLYCEMIA PROTOCOL Digoxin (Lanoxin) 125 mcg PO EVERY OTHER DAY SHAKIRA Glucagon (Glucagon Inj) 1 mg OTHER UNSCH PRN PRN Reason: for Hypoglycemia Protocol Sodium Chloride (Ns Inj) 250 mls @ 15 mls/hr IV.SIG ONCE SHAKIRA Stop: 11/24/18 20:39 Last Admin: 11/24/18 07:37 Dose: 15 mls/hr Insulin Aspart (Novolog Insulin Correctional Sugar Inj) 0 unit SQ ACHS SHAKIRA; Protocol Levothyroxine Sodium (Synthroid) 125 mcg PO DAILY [facility] Non-Formulary Medication (Arformoterol [Brovana]) 1 puff INHALATION BID [facility] Non-Formulary Medication (Diltiazem Hcl [Diltiazem Hcl]) 180 mg PO TID SHAKIRA Non-Formulary Medication (Insulin Degludec [Tresiba Flextouch U-100]) 20 unit SQ DAILY SHAKIRA Ondansetron HCl (Zofran Inj) 4 mg IV.PUSH Q6H PRN PRN Reason: NAUSEA OR VOMITING Sodium Chloride (Ns Flush) 2 ml IV.FLUSH BID SHAKIRA Sodium Chloride (Ns Flush) 2 ml IV.FLUSH UNSCH PRN PRN Reason: FLUSH AFTER USING IV ACCESS Allergies Allergy/AdvReac Type Severity Reaction Status Date / Time penicillin G Allergy Severe Anaphylaxis Verified 11/24/18 01:35 Iodinated Contrast- Oral and AdvReac Severe Hives Verified 11/24/18 01:35 IV Dye levofloxacin AdvReac Severe Confusion Verified 11/24/18 01:35 Quinolones AdvReac Severe Confusion Verified 11/24/18 01:35 verapamil AdvReac Severe Nausea/Vomi Verified 11/24/18 01:35 ting Home Medications Medication Instructions Recorded Confirmed Type apixaban [Eliquis] 2.5 mg PO BID 08/13/18 11/24/18 History diltiazem HCl 180 mg PO TID 08/13/18 11/24/18 History sitagliptin [Januvia] 50 mg PO DAILY 08/13/18 11/24/18 History albuterol sulfate [ProAir HFA] 2 puff INHALATION Q4-6H PRN 09/06/18 11/24/18 History arformoterol [Brovana] 1 puff INHALATION BID 09/06/18 11/24/18 History budesonide-formoterol [Symbicort] 2 puff INHALATION BID 09/06/18 11/24/18 History ferrous gluconate 270 mg PO DAILY 09/06/18 11/24/18 History insulin aspart U-100 [Novolog 1 sliding scale dose SUBCUT UD PRN 09/06/18 History PenFill U-100 Insulin] insulin degludec [Tresiba 20 unit SUBCUT DAILY 09/06/18 11/24/18 History FlexTouch U-100] ipratropium-albuterol 3 ml INHALATION Q12HR 10/02/18 11/24/18 History levothyroxine 125 mcg PO DAILY 10/02/18 11/24/18 History digoxin [Lanoxin] 0.125 mg PO EVERY OTHER DAY 10/21/18 11/24/18 History metoprolol succinate [Toprol XL] 25 mg PO Q12HR 10/21/18 11/24/18 History ranitidine HCl [Zantac] 150 mg PO DAILY 10/21/18 11/24/18 History sucralfate [Carafate] 1 g PO Q6H 10/21/18 11/24/18 History Exam Vital signs: Vital Signs 11/24/18 01:35 11/24/18 02:15 11/24/18 02:42 Temperature 98.2 F Pulse Rate 86 91 H Respiratory Rate 27 H 36 H Blood Pressure 144/80 H 165/85 H Pulse Oximetry 99 100 99 11/24/18 04:30 11/24/18 07:15 11/24/18 07:36 Temperature 98.7 F Pulse Rate 92 H 101 H 105 H Respiratory Rate 26 H 16 18 Blood Pressure 145/94 H 145/94 H 156/75 H Pulse Oximetry 100 100 99 11/24/18 07:52 11/24/18 08:36 11/24/18 10:30 Temperature 98.5 F 98.7 F Pulse Rate 102 H 100 H 109 H Respiratory Rate 16 15 18 Blood Pressure 150/72 H 158/78 H 190/90 H Pulse Oximetry 100 98 98 11/24/18 11:15 11/24/18 11:31 11/24/18 12:51 Temperature 98.7 F 98.7 F Pulse Rate 109 H 110 H 136 H Respiratory Rate 22 20 20 Blood Pressure 186/112 H 173/96 H 176/126 H Pulse Oximetry 98 97 99 11/24/18 13:01 11/24/18 13:41 11/24/18 14:21 Temperature 98.5 F Pulse Rate 135 H 103 H 108 H Respiratory Rate 21 24 Blood Pressure 177/106 H 175/81 H Pulse Oximetry 97 96 Intake & Output 11/23/18 11/24/18 11/24/18 18:59 06:59 18:59 Intake Total 800 / 800 Balance 800 / 800 Weight 52.163 kg 52.163 kg Intake: Intake (Blood Product) Amt 800 / 800 Rbc As-3 Leukoreduced Unit 400 / 400 [id number] Rbc As-3 Leukoreduced Unit 400 / 400 [id number] Other: Date of Last Bowel Movement 11/24/18 Weight On Admission 52.163 kg Narrative: GENERAL: NAD SKIN: Warm and dry. HEAD: Atraumatic. Normocephalic. EYES: Pupils equal and round. No scleral icterus. No injection or drainage. ENT: No nasal bleeding or discharge. Mucous membranes pink and moist. NECK: Trachea midline. No JVD. CARDIOVASCULAR: Irregular regular rate and rhythm. No Heart murmur RESPIRATORY: No accessory muscle use. Clear to auscultation. Breath sounds equal bilaterally. GASTROINTESTINAL: Abdomen soft, non-tender, nondistended. Hepatic and splenic margins not palpable. MUSCULOSKELETAL: Extremities without clubbing, cyanosis, or edema. No obvious deformities. NEUROLOGICAL: Awake and alert. No obvious cranial nerve deficits. Motor grossly within normal limits. Five out of 5 muscle strength in the arms and legs. Normal speech. PSYCHIATRIC: Appropriate mood and affect; insight and judgment normal. Results - Labs CBC & Chem 7: 11/24/18 02:35 11/24/18 02:35 Labs: Laboratory Results - last 24 hr 11/24/18 11/24/18 11/24/18 02:25 02:25 02:35 WBC RBC Hgb Hct MCV MCH MCHC RDW Plt Count MPV Neut % (Auto) Lymph % (Auto) [place] % (Auto) Eos % (Auto) Baso % (Auto) Neut # (Auto) Lymph # (Auto) [place] # (Auto) Eos # (Auto) Baso # (Auto) WBC Differential Differential Comment Sodium Potassium Chloride Carbon Dioxide Anion Gap BUN Creatinine Estimated GFR Random Glucose Calcium Total Bilirubin Direct Bilirubin AST ALT Alkaline Phosphatase Troponin I B-Natriuretic Peptide 793 H Total Protein Albumin Blood Type O Positive Antibody Screen Positive H Antibody Identification Antigen Identification Cancelled Direct Antiglob Test Negative MTS Gel Crossmatch See Detail Bld Prod Order Comment 11/24/18 11/24/18 11/24/18 02:35 02:35 04:08 WBC 6.2 RBC 2.57 L Hgb 7.9 L Hct 23.2 L MCV 90.5 MCH 30.7 MCHC 33.9 RDW 18.2 H Plt Count 101 L MPV 8.3 Neut % (Auto) 68.6 Lymph % (Auto) 17.7 [place] % (Auto) 12.2 H Eos % (Auto) 1.0 Baso % (Auto) 0.5 Neut # (Auto) 4.2 Lymph # (Auto) 1.1 [place] # (Auto) 0.7 Eos # (Auto) 0.1 Baso # (Auto) 0.0 WBC Differential . Differential Comment Auto diff final Sodium 140 Potassium 3.0 L Chloride 99 Carbon Dioxide 35.5 H Anion Gap 6 BUN 22 H Creatinine 1.53 H Estimated GFR 32 L Random Glucose 136 H Calcium 8.1 L Total Bilirubin 0.9 Direct Bilirubin 0.5 H AST 48 H ALT 25 Alkaline Phosphatase 110 Troponin I Less than 0.02 L B-Natriuretic Peptide Total Protein 8.6 H Albumin 2.8 L Blood Type Antibody Screen Antibody Identification Anti-C Antigen Identification Direct Antiglob Test MTS Gel Crossmatch Bld Prod Order Comment 11/24/18 07:25 WBC RBC Hgb Hct MCV MCH MCHC RDW Plt Count MPV Neut % (Auto) Lymph % (Auto) [place] % (Auto) Eos % (Auto) Baso % (Auto) Neut # (Auto) Lymph # (Auto) [place] # (Auto) Eos # (Auto) Baso # (Auto) WBC Differential Differential Comment Sodium Potassium Chloride Carbon Dioxide Anion Gap BUN Creatinine Estimated GFR Random Glucose Calcium Total Bilirubin Direct Bilirubin AST ALT Alkaline Phosphatase Troponin I B-Natriuretic Peptide Total Protein Albumin Blood Type Antibody Screen Antibody Identification Antigen Identification C Antigen - NEGATIVE Direct Antiglob Test MTS Gel Crossmatch Bld Prod Order Comment - Imaging Impressions Chest X-Ray 11/24/18 02:40 CONCLUSION: Bibasilar consolidation and small effusions. Caprini VTE Risk Assessment Caprini VTE Risk Assessment: Moderate/High Risk (score >= 2) Caprini Risk Assessment Model: Point Value = 1 Point Value = 2 Point Value = 3 Point Value = 5 Age 41-60 Minor surgery BMI > 25 kg/m2 Swollen legs Varicose veins or History of unexplained or recurrent spontaneous Oral contraceptives or hormone replacement Sepsis (< 1 month) Serious lung disease, including pneumonia (< 1 month) Abnormal pulmonary function Acute myocardial infarction Congestive heart failure (< 1 month) History of inflammatory bowel disease Medical patient at bed rest Age 61-74 Arthroscopic surgery Major open surgery (> 45 min) Laparoscopic surgery (> 45 min) Malignancy Confined to bed (> 72 hours) Immobilizing plaster cast Central venous access Age >= 75 History of VTE Family history of VTE Factor V Leiden Prothrombin [id number] Lupus anticoagulant Anticardiolipin antibodies Elevated serum homocysteine Heparin-induced thrombocytopenia Other congenital or acquired thrombophilia Stroke (< 1 month) Elective arthroplasty Hip, pelvis, or leg fracture Acute spinal cord injury (< 1 month) Prophylaxis Regimen: Total Risk Factor Score Risk Level Prophylaxis Regimen 0-1 Low Early ambulation 2 Moderate Order ONE of the following: *Sequential Compression Device (SCD) *Heparin 5000 units SQ BID 3-4 Higher Order ONE of the following medications: *Heparin 5000 units SQ TID *Enoxaparin/Lovenox 40 mg SQ daily (WT < 150 kg, CrCl > 30 mL/min) *Enoxaparin/Lovenox 30 mg SQ daily (WT < 150 kg, CrCl > 10-29 mL/min) *Enoxaparin/Lovenox 30 mg SQ BID (WT < 150 kg, CrCl > 30 mL/min) AND/OR *Sequential Compression Device (SCD) 5 or more Highest Order ONE of the following medications: *Heparin 5000 units SQ TID (Preferred with Epidurals) *Enoxaparin/Lovenox 40 mg SQ daily (WT < 150 kg, CrCl > 30 mL/min) *Enoxaparin/Lovenox 30 mg SQ daily (WT < 150 kg, CrCl > 10-29 mL/min) *Enoxaparin/Lovenox 30 mg SQ BID (WT < 150 kg, CrCl > 30 mL/min) AND *Sequential Compression Device (SCD) Assessment and Plan - Plan 83-year-old female with Atrial fibrillation with RVR Resume Cardizem 180 mg 3 times daily, digoxin, beta-julita and Eliquis 2.5 mg p.o. twice daily Monitor digoxin level Consider Cardizem drip if no improvement Continue with ACS ruled out per protocol with serial cardiac enzyme and EKGs History of CHF of unknown type Flash pulmonary edema 2/2 Blood infusion Will start Bumex 1 mg IV every 12 hours Continue with ACS ruled out per protocol serial cardiac enzyme and EKGs Normochromic normocytic anemia Status post 2 unit packed red blood cells transfused Monitor H&H Chronic COPD requiring long-term oxygen Resume outpatient medications DuoNeb as needed Hypokalemia Replace electrolytes and monitor History of kidney disease stage III-IV Continue to monitor History of liver disease with possible HCC Patient management with oncology Other chronic medical conditions Resume outpatient medications DVT prophylaxis Eliquis
[2018-11-24 17:12] LABS: Troponin I 0.03 ng/mL (0.02-0.05)
[2018-11-24] MEDS: Insulin NovoLOG Aspart Correctional Sugar Inj SQ SCH ×2 (18:03→23:02)
--- NOTE | 2018-11-24 20:35 | ECG ---
Date Performed: 11/24/2018 Time Performed: 02:14:22 PTAGE: 83 years EKG: ATRIAL FIBRILLATION LOW QRS VOLTAGE IN EXTREMITY LEADS NONSPECIFIC ST & T-WAVE ABNORMALITY ABNORMAL ECG NO PREVIOUS TRACING DOCTOR: Vika Aguilar Interpretating Date/Time 11/24/2018 20:32:50
[2018-11-24] MEDS ORDERED: ARFORMOTEROL INH SCH (21:00)
[2018-11-24 21:49] LABS: Troponin I 0.03 ng/mL (0.02-0.05)
[2018-11-24] MEDS: Budesonide-Formoterol 160/4.5 MCG 6 GM Inhaler INH SCH (23:03)
[2018-11-25] MEDS: Levothyroxine 125 MCG Tablet PO SCH (06:45)
[2018-11-25 07:32] LABS: Baso % (Auto) 0.4 % (0.0-2.0); Eos % (Auto) 0.3 % (0.0-4.0); Hematocrit 35.8 % (35.0-46.0); Hemoglobin 12.2 gm/dL (11.6-15.3); Lymph # (Auto) 0.7 th/mm3 (1.0-4.8); Lymph % (Auto) 8.2 % (9.0-44.0); Mean Corpuscular Hemoglobin 30.6 pg (27.0-34.0); Mean Corpuscular Volume 89.8 fL (80.0-100.0); Mean Platelet Volume 8.5 fL (7.0-11.0); Mono # (Auto) 1.2 th/mm3 (0.0-0.9); Mono % (Auto) 13.5 % (0.0-8.0); Neut # (Auto) 6.8 th/mm3 (1.8-7.7); Neut % (Auto) 77.6 % (16.0-70.0); Platelet Count 87 th/mm3 (150-450); Red Blood Count 3.98 mil/mm3 (4.00-5.30); Red Cell Distribution Width 17.5 % (11.6-17.2); White Blood Count 8.8 th/mm3 (4.0-11.0)
[2018-11-25 08:30] LABS: Howell-Jolly Bodies Present; Platelet Morphology Normal (Normal)
[2018-11-25] MEDS ORDERED: INSULIN DEGLUDEC SQ SCH (09:00)
[2018-11-25] MEDS: Insulin NovoLOG Aspart Correctional Sugar Inj SQ SCH ×4 (09:18→22:27)
[2018-11-25] MEDS: Famotidine 20 MG Tablet PO SCH (09:18)
[2018-11-25] MEDS: Budesonide-Formoterol 160/4.5 MCG 6 GM Inhaler INH SCH ×2 (09:19→22:28)
[2018-11-25 14:59] LABS: Alanine Aminotransferase 23 U/L (10-53); Albumin 2.7 g/dL (3.4-5.0); Alkaline Phosphatase 91 U/L (45-117); Anion Gap 10 meq/L (5-15); Aspartate Aminotransferase 60 U/L (15-37); Blood Urea Nitrogen 30 mg/dL (7-18); Calcium 8.3 mg/dL (8.5-10.1); Carbon Dioxide 29.9 meq/L (21.0-32.0); Chloride 97 meq/L (98-107); Glomerular Filtration Rate 29 mL/min (>89); Glucose,Random 209 mg/dL (74-106); Potassium 4.1 meq/L (3.5-5.1); Sodium 137 meq/L (136-145); Total Protein 8.5 g/dL (6.4-8.2)
--- NOTE | 2018-11-25 15:29 | P.PN ---
Subjective Interval history: awake and alert feeling better states home 02 dpendent at night no hematochezia or hemetemeseis or melena no nausea or vomiting history aof a fib review records- recurrent Anemia - last here hgb of 6.7 ff by Hematology as OP on Eliquis- no reported GIB. Physical Exam Vital signs: Vital Signs 11/24/18 16:00 11/24/18 16:40 11/24/18 19:53 Temperature 99.0 F 96.8 F L Pulse Rate 83 100 H 129 H Respiratory Rate 16 17 Blood Pressure 130/81 171/88 H Pulse Oximetry 95 96 11/24/18 20:00 11/24/18 23:52 11/25/18 04:00 Temperature 98.0 F 98.4 F Pulse Rate 147 H 83 90 Respiratory Rate 16 19 Blood Pressure 134/67 152/72 H Pulse Oximetry 98 96 11/25/18 04:33 11/25/18 07:22 11/25/18 08:00 Temperature 97.7 F Pulse Rate 86 100 H 82 Respiratory Rate 18 Blood Pressure 141/84 H Pulse Oximetry 93 L 11/25/18 11:51 Temperature 98.4 F Pulse Rate 88 Respiratory Rate 20 Blood Pressure 145/71 H Pulse Oximetry 96 Intake & Output 11/24/18 11/25/18 11/25/18 18:59 06:59 18:59 Intake Total 800 / 800 350 / 350 Balance 800 / 800 350 / 350 Weight 52.163 kg 52.163 kg Intake: IV 250 / 250 NS Inj 250 ML @ 15 mls/hr IV. 250 / 250 SIG ONCE SHAKIRA Rx#:[id number] Oral 100 / 100 Intake (Blood Product) Amt 800 / 800 Rbc As-3 Leukoreduced Unit 400 / 400 [id number] Rbc As-3 Leukoreduced Unit 400 / 400 [id number] Other: # Voids 3 3 Date of Last Bowel Movement 11/24/18 11/24/18 # Bowel Movements 4 Weight On Admission 52.163 kg Narrative: GENERAL: NAD no distress SKIN: Warm and dry. HEAD: Atraumatic. Normocephalic. EYES: Pupils equal and round. No scleral icterus. No injection or drainage. ENT: No nasal bleeding or discharge. Mucous membranes pink and moist. NECK: Trachea midline. No JVD. CARDIOVASCULAR: Irregular regular rate and rhythm.rate 90- low 100s RESPIRATORY: No accessory muscle use. Clear to auscultation. Breath sounds equal bilaterally. GASTROINTESTINAL: Abdomen soft, non-tender, nondistended. Hepatic and splenic margins not palpable. MUSCULOSKELETAL: Extremities without clubbing, cyanosis, or edema. No obvious deformities. NEUROLOGICAL: Awake and alert. No obvious cranial nerve deficits. Motor grossly within normal limits. Five out of 5 muscle strength in the arms and legs. Normal speech. PSYCHIATRIC: Appropriate mood and affect; insight and judgment normal. Results - Labs CBC & Chem 7: 11/26/18 05:00 11/25/18 14:06 Laboratory Results - last 24 hr 11/24/18 11/24/18 11/24/18 04:08 16:20 18:03 WBC RBC Hgb Hct MCV MCH MCHC RDW Plt Count MPV Prelim Diff (Auto) Neut % (Auto) Lymph % (Auto) [place] % (Auto) Eos % (Auto) Baso % (Auto) Neut # (Auto) Lymph # (Auto) [place] # (Auto) Eos # (Auto) Baso # (Auto) WBC Differential Diff Scan Differential Comment Platelet Estimate Platelet Morphology [place] Bodies Sodium Potassium Chloride Carbon Dioxide Anion Gap BUN Creatinine Estimated GFR POC Glucose 139 H Random Glucose Calcium Total Bilirubin AST ALT Alkaline Phosphatase Total Creatine Kinase 88 Troponin I 0.03 Total Protein Albumin Digoxin Rout Panel Path Interp 11/24/18 11/24/18 11/24/18 21:06 21:13 22:48 WBC RBC Hgb Hct MCV MCH MCHC RDW Plt Count MPV Prelim Diff (Auto) Neut % (Auto) Lymph % (Auto) [place] % (Auto) Eos % (Auto) Baso % (Auto) Neut # (Auto) Lymph # (Auto) [place] # (Auto) Eos # (Auto) Baso # (Auto) WBC Differential Diff Scan Differential Comment Platelet Estimate Platelet Morphology [place] Bodies Sodium Potassium Chloride Carbon Dioxide Anion Gap BUN Creatinine Estimated GFR POC Glucose 175 H 180 H Random Glucose Calcium Total Bilirubin AST ALT Alkaline Phosphatase Total Creatine Kinase 96 Troponin I 0.03 Total Protein Albumin Digoxin Rout Panel Path Interp 11/25/18 11/25/18 11/25/18 07:07 07:53 13:20 WBC 8.8 RBC 3.98 L Hgb 12.2 D Hct 35.8 MCV 89.8 MCH 30.6 MCHC 34.0 RDW 17.5 H Plt Count 87 L MPV 8.5 Prelim Diff (Auto) Slide review pending Neut % (Auto) 77.6 H Lymph % (Auto) 8.2 L [place] % (Auto) 13.5 H Eos % (Auto) 0.3 Baso % (Auto) 0.4 Neut # (Auto) 6.8 Lymph # (Auto) 0.7 L [place] # (Auto) 1.2 H Eos # (Auto) 0.0 Baso # (Auto) 0.0 WBC Differential . Diff Scan Auto diff confirmed Differential Comment . Platelet Estimate Low L Platelet Morphology Normal [place] Bodies Present H Sodium Potassium Chloride Carbon Dioxide Anion Gap BUN Creatinine Estimated GFR POC Glucose 157 H 207 H Random Glucose Calcium Total Bilirubin AST ALT Alkaline Phosphatase Total Creatine Kinase Troponin I Total Protein Albumin Digoxin Rout Panel Path Interp 11/25/18 14:06 WBC RBC Hgb Hct MCV MCH MCHC RDW Plt Count MPV Prelim Diff (Auto) Neut % (Auto) Lymph % (Auto) [place] % (Auto) Eos % (Auto) Baso % (Auto) Neut # (Auto) Lymph # (Auto) [place] # (Auto) Eos # (Auto) Baso # (Auto) WBC Differential Diff Scan Differential Comment Platelet Estimate Platelet Morphology [place] Bodies Sodium 137 Potassium 4.1 D Chloride 97 L Carbon Dioxide 29.9 Anion Gap 10 BUN 30 H Creatinine 1.68 H Estimated GFR 29 L POC Glucose Random Glucose 209 H Calcium 8.3 L Total Bilirubin 3.0 H AST 60 H ALT 23 Alkaline Phosphatase 91 Total Creatine Kinase Troponin I Total Protein 8.5 H Albumin 2.7 L Digoxin Less than 0.1 L Rout Panel Path Interp Assessment and Plan - Plan 83-year-old female with Flash pulmonary edema 2/2 Blood transfusion History of CHF of unknown type on Bumex 1 mg IV every 12 hours- change to po home dose get a 2 decho negative troponin Atrial fibrillation with RVR- rate better Resume Cardizem 180 mg 3 times daily, digoxin, beta-julita Eliquis 2.5 mg p.o. twice daily- hold for now with recurrent anemia- on review of previous albs Monitor digoxin level Recurrent anemia-chronic on review of labs- was here 10/25- with hgb of 6.9. no work up then Normochromic normocytic anemia Chronic thrombocytopenia- presumed to be from cirrhosis will reconsult Hematology- known to them - for recommendations- patient on Eliquis for a fib but with persistent anemia but no signs of overt bleeding denies any melena or hematochezia. monitor for any signs of bleeding was give 2 units RBC at ER and went to pulmonary flash edema Monitor H&H on Eliqus- Hold continue to monitor for any signs of overt bleeding Chronic COPD requiring long-term oxygen Resume outpatient medications known to Dr. Eisenberg- requested for him Hypokalemia Replace electrolytes and monitor History of kidney disease stage III-IV Continue to monitor History of liver disease with possible HCC- hepatocellular carcinoma oncology consulted DVT prophylaxis Eliquis- hold for now with recurrent anemia
--- NOTE | 2018-11-25 17:34 | MB ---
cc: Oscar Eisenberg MD DATE: 11/25/2018 REQUESTING PHYSICIAN: Georgette Macias MD REASON FOR CONSULTATION: COPD and shortness of breath. HISTORY OF PRESENT ILLNESS: Ms. Ortiz is an 83-year-old female who has history of COPD. She is oxygen dependent and also has a history of congestive heart failure, anemia, and hepatitis C. She was being followed by Dr. Santos Wheeler. The patient came to the hospital with worsening of shortness of breath. She was found to be anemic. Her hemoglobin was 7.9. She was given 2 units of blood transfusion and she went into flash pulmonary edema. She has been diuresed. Now, she is on 2 liters nasal cannula. Feels her breathing is better. She is anxious to go home. She has no cough or sputum production. No abdominal pain. No blood in the stools. LABORATORY DATA: She had a workup done. WBC count 8.8, hemoglobin 12.2, hematocrit 35.8, MCV 89, platelet count 87. Her sodium 137, potassium 4.1, chloride 97, CO2 of 29, BUN 30, creatinine 1.68. Her chest x-ray shows she has a right basilar consolidation, small pleural effusion. PAST MEDICAL HISTORY: Significant for history of congestive heart failure, coronary artery disease, atrial fibrillation, cirrhosis of the liver, COPD, she is oxygen-dependent, chronic kidney disease, diabetes mellitus, hepatitis C, history of pacemaker placement. MEDICATIONS: She is currently takin. Milk of magnesia. 2. Nebulizer treatment with DuoNeb, Symbicort 160/4.5 two puffs twice a day. 3. Bumex 1 mg twice a day. 4. Lanoxin 0.125 mg b.i.d. 5. Diltiazem 180 mg every 8 hours. 6. Famotidine 20 mg a day. 7. Levothyroxine 125 mcg. 8. Metoprolol 25 mg every 12 hours. 9. Zofran p.r.n. 10. Tresiba insulin. 11. Eliquis 2.5 mg. ALLERGIES: SHE IS ALLERGIC TO IODINE, PENICILLIN, LEVAQUIN AND QUINOLONES. SOCIAL HISTORY: She lives with her daughter. No history of smoking or alcohol abuse. FAMILY HISTORY: Noncontributory. REVIEW OF SYSTEMS: She walks a short distance, uses oxygen all the time. No stroke. No DVT, pulmonary embolism. PHYSICAL EXAMINATION: GENERAL: Reveals an elderly female, mildly short of breath, not in any acute distress. VITAL SIGNS: Blood pressure 148/76, heart rate 99, respirations 20, temperature 98.2. HEENT: Pupils are equal and reactive to light. Oral mucosa and nasal mucosa normal. NECK: Supple. JVP not raised. CHEST: No rhonchi. HEART: S1, S2 normal. ABDOMEN: Benign. EXTREMITIES: No edema. IMPRESSION: 1. COPD. She is oxygen dependent. 2. Small pleural effusion. 3. Congestive heart failure. 4. Atrial fibrillation. 5. Anemia. 6. History of hepatitis C. PLAN: I discussed with patient, we will give her aerosol treatment Symbicort twice a day, supplemental oxygen, monitor her hemoglobin. Her workup is underway for her anemia. Further treatment pending the course in the hospital. Thank you, Dr. Macias, for this consultation. MD KALEB Fernandes/forrest , 04:20 PM , 04:31 PM
--- NOTE | 2018-11-25 17:59 | ECG ---
Date Performed: 11/24/2018 Time Performed: 22:00:22 PTAGE: 83 years EKG: ATRIAL FIBRILLATION POSSIBLE RIGHT VENTRICULAR HYPERTROPHY MODERATE ST DEPRESSION ABNORMAL QRS-T ANGLE ABNORMAL ECG PREVIOUS TRACING : 11/24/2018 16.13 Since the previous tracing, no significant change noted DOCTOR: Marclel Appiah Interpretating Date/Time 11/25/2018 17:59:12
--- NOTE | 2018-11-25 18:40 | ECG ---
Date Performed: 11/24/2018 Time Performed: 16:13:08 PTAGE: 83 years EKG: ATRIAL FIBRILLATION WITH RAPID VENTRICULAR RESPONSE LOW QRS VOLTAGE IN EXTREMITY LEADS MODE RATE ST DEPRESSION ABNORMAL QRS-T ANGLE ABNORMAL ECG NO PREVIOUS TRACING DOCTOR: Marcell Appiah Interpretating Date/Time 11/25/2018 18:39:21
--- NOTE | 2018-11-25 20:12 | P.EN ---
Patient with moderate amount of BRBPR - chart reviewed, patient s/p blood transfusion with admitting hgb 7.9; repeat 12.2 today- obtain H&H and repeat in 6 hours; consult gastroenterology.
[2018-11-25 21:00] LABS: Hematocrit 31.7 % (35.0-46.0); Hemoglobin 10.9 gm/dL (11.6-15.3)
[2018-11-26 05:11] LABS: Hematocrit 32.7 % (35.0-46.0)
[2018-11-26] MEDS: Levothyroxine 125 MCG Tablet PO SCH (06:00)
[2018-11-26] MEDS: Famotidine 20 MG Tablet PO SCH (08:22)
[2018-11-26] MEDS: Insulin NovoLOG Aspart Correctional Sugar Inj SQ SCH ×4 (08:22→21:30)
[2018-11-26] MEDS: Budesonide-Formoterol 160/4.5 MCG 6 GM Inhaler INH SCH ×2 (08:23→21:28)
[2018-11-26] MEDS ORDERED: Digoxin 125 MCG Tablet PO SCH (09:00)
--- NOTE | 2018-11-26 14:36 | MB ---
cc: Krish Stewart MD DATE: 11/26/2018 TYPE OF CONSULTATION: GI consult. REASON FOR CONSULTATION: Anemia and bleeding per rectum. HISTORY OF PRESENT ILLNESS: This is an 83-year-old female patient who does not speak Chinese fluently, known case of congestive heart failure, chronic obstructive pulmonary disease. She is oxygen dependent. She was labeled as chronic liver disease. She also has coronary artery disease, atrial fibrillation, hypertension. She presented to the emergency room with acute onset shortness of breath with some substernal chest discomfort. She was seen in the emergency room and had a cardiac workup done to rule out acute ND and came back negative. The patient had during hospitalization a run of atrial fibrillation with rapid ventricular response, requiring IV Cardizem of several doses. During hospitalization also, the patient had 1 episode of fresh blood per rectum, and her labs showed hemoglobin of 7.9, hematocrit 23.2, that went up to 12.2 and 35.8 after blood transfusion and now went back again to 10.9 and 31.7. She is hemodynamically stable at the current time and being evaluated by cardiology and pulmonary services. History is very limited at this time because of the patient's communication difficulty and language barrier. The patient's granddaughter is usually who communicates, who is not available at this time. REVIEW OF SYSTEMS: Unobtainable at this time. PAST MEDICAL HISTORY: Atrial fibrillation, asthma, coronary artery disease, CHF, chronic kidney disease, COPD, chronic liver disease of unknown type, diabetes, hypertension, hepatitis C, ND, has pacemaker. SURGICAL HISTORY: Cholecystectomy, heart stent. FAMILY HISTORY: Positive for hypertension. PSYCHOSOCIAL HISTORY: The patient is a never smoker, never alcohol abuse, and no history of IV drug abuse. MEDICATIONS: As listed, 1. Eliquis. 2. Diltiazem. 3. Januvia. 4. Albuterol. 5. Budesonide. 6. Symbicort. 7. Ferrous sulfate. 8. Insulin. 9. Levothyroxine. 10. Digoxin. 11. Metoprolol. 12. Ranitidine. 13. Sucralfate. ALLERGIES: SHE HAS MULTIPLE ALLERGIES INCLUDING PENICILLIN, IODINE, LEVOFLOXACIN, OTHER QUINOLONES, VERAPAMIL. PHYSICAL EXAMINATION: GENERAL: The patient found to be with mild to moderate shortness of breath with nasal cannula in place. Hemodynamically stable. HEAD AND NECK: Normocephalic, atraumatic. Pupils equal and reactive to light. Slightly pallor. CHEST: Clear to auscultation bilaterally with slight wheezes in the bases bilaterally. HEART: Regular at the current time, but rate is around 85. ABDOMEN: Soft, nontender. No hepatosplenomegaly. No palpable masses. EXTREMITIES: Normal pulses. No edema. NEUROLOGIC: Nonfocal. ASSESSMENT AND PLAN: This is an 83-year-old female patient with difficult communication because of language barrier, who presented with the following problems: 1. Anemia and 1 episode of bleeding per rectum during the hospitalization. 2. Chronic use of Eliquis and anticoagulation for coronary artery disease, pacemaker, and congestive heart failure. 3. Oxygen dependent disease with possible pulmonary edema after blood transfusion. 4. Unable to obtain a previous endoscopic evaluation including endoscopy or colonoscopy at the current time. 5. History of chronic liver disease as per chart suggestive of that possibility in the form of low albumin, high total bilirubin, reversal of AST-ALT ratio. The etiology for her liver disease is unknown to me at this time, but likely secondary to hepatitis C. 6. Hepatitis C positive, unknown if treated before and unknown previous PCR. RECOMMENDATIONS: At the current time, we will continue with cardiopulmonary workup for her pulmonary edema and fluid overload. We will need to obtain some more information regarding her previous endoscopic evaluation. That can be obtained from her granddaughter, who is not available at this time. We will monitor CBC for the time being. Continue IV proton pump inhibitor. Possibly, we will need endoscopic evaluation after clearance by cardiac and pulmonary service, and we will need to hold Eliquis for 48 hours if endoscopy needs to be done. Continue supportive care for the time being. Thank you for the consult. MD BENJAMIN Mitchell/duran , 01:23 PM , 01:33 PM
--- NOTE | 2018-11-26 14:50 | P.PNPL ---
Subjective Interval history: 83 YO female with COPD,CHF,AF, anemia Has some blood in stool GI consulted Breathing better Physical Exam Vital signs: Vital Signs 11/25/18 15:51 11/25/18 19:33 11/25/18 20:00 Temperature 98.2 F 98.4 F Pulse Rate 99 H 80 91 H Respiratory Rate 20 12 Blood Pressure 148/76 H 140/77 Pulse Oximetry 93 L 97 11/25/18 23:16 11/26/18 00:00 11/26/18 03:35 Temperature 99.0 F 98.2 F Pulse Rate 84 86 Respiratory Rate 20 12 Blood Pressure 140/65 136/60 Pulse Oximetry 95 95 96 11/26/18 08:00 11/26/18 08:07 Temperature 97.9 F Pulse Rate 76 Respiratory Rate 16 Blood Pressure 146/71 H Pulse Oximetry 98 96 Intake & Output 11/25/18 11/26/18 11/26/18 18:59 06:59 18:59 Intake Total 1050 / 1050 240 / 240 Balance 1050 / 1050 240 / 240 Intake: Oral 1050 / 1050 240 / 240 Other: # Voids 6 3 Date of Last Bowel Movement 11/25/18 GENERAL: Elderly female, NAD SKIN: Warm and dry. HEAD: Normocephalic. EYES: No scleral icterus. No injection or drainage. NECK: Supple, trachea midline. No JVD or lymphadenopathy. CARDIOVASCULAR: Regular rate and rhythm without murmurs, gallops, or rubs. RESPIRATORY: Breath sounds equal bilaterally. No accessory muscle use. GASTROINTESTINAL: Abdomen soft, non-tender, nondistended. MUSCULOSKELETAL: No cyanosis, or edema. BACK: Nontender without obvious deformity. No CVA tenderness. Assessment and Plan - Plan IMPRESSION: 1. COPD. She is oxygen dependent. 2. Small pleural effusion. 3. Congestive heart failure. 4. Atrial fibrillation. 5. Anemia. 6. History of hepatitis C. PLAN: Aerosol nebs Monitor H/H Supplement 02 DW pt and GD at BS GI consulted.
--- NOTE | 2018-11-26 17:12 | P.PNIM ---
Subjective Interval history: Patient seen sitting up in bed. Her granddaughter is at bedside. Offered hair boiler however patient indicated she would prefer her granddaughter. Patient does appear to understand some spoken Chinese but does not speak Chinese. She tells me that she has had no further episodes of bleeding. Has had one bowel movement this morning with no blood in it. Still is fatigued with shortness of breath. She would like to go home. Discussed evaluation with GI that is pending -patient indicates that she would not have a colonoscopy done as she feels it is unsafe with her heart condition. They also tell me that they have an appointment with her construction estimator tomorrow. Physical Exam Vital signs: Last Vital Signs Temp 98.6 F 11/26/18 16:00 Pulse 101 H 11/26/18 16:00 Resp 18 11/26/18 16:00 BP 151/85 H 11/26/18 16:00 Pulse Ox 98 11/26/18 16:00 Intake & Output 11/24/18 11/25/18 11/26/18 11/27/18 06:59 06:59 06:59 06:59 Intake Total 1150 / 1150 1290 / 1290 Balance 1150 / 1150 1290 / 1290 Weight 52.163 kg 52.163 kg Narrative: GENERAL: Well-nourished, well-developed adult female in no apparent distress. SKIN: Warm and dry. HEAD: Atraumatic. Normocephalic. CARDIOVASCULAR: Irregular regular rate and rhythm.rate 90- low 100s RESPIRATORY: No accessory muscle use. Clear to auscultation. Breath sounds equal bilaterally. GASTROINTESTINAL: Abdomen soft, non-tender, nondistended. MUSCULOSKELETAL: Extremities without clubbing, cyanosis, or edema. No obvious deformities. NEUROLOGICAL: Awake and alert. No obvious cranial nerve deficits. Motor grossly within normal limits. Normal speech. PSYCHIATRIC: Appropriate mood and affect; insight and judgment normal. Results Labs CBC & Chem 7: 11/26/18 05:00 11/25/18 14:06 Assessment and Plan Plan 83-year-old female with Flash pulmonary edema 2/2 Blood transfusion History of CHF of unknown type on Bumex 1 mg IV every 12 hours- change to po home dose Echo ordered negative troponin Atrial fibrillation with RVR- rate better Resume Cardizem 180 mg 3 times daily, digoxin, beta-julita Eliquis 2.5 mg p.o. twice daily- hold for now with recurrent anemia- on review of previous albs Monitor digoxin level Recurrent anemia-chronic on review of labs- was here 10/25- with hgb of 6.9. no work up then Normochromic normocytic anemia Chronic thrombocytopenia- presumed to be from cirrhosis will reconsult Hematology- known to them - for recommendations- patient on Eliquis for a fib but with persistent anemia but no signs of overt bleeding Episode of rectal bleeding overnight; given additional 1 unit Previously received 2 units RBC at ER and went to pulmonary flash edema Monitor H&H on Eliqus- Hold continue to monitor for any signs of overt bleeding Chronic COPD requiring long-term oxygen Resume outpatient medications known to Dr. Eisenberg- requested for him Hypokalemia Replace electrolytes and monitor History of kidney disease stage III-IV Continue to monitor History of liver disease with possible HCC- hepatocellular carcinoma oncology consulted DVT prophylaxis Eliquis- hold for now with recurrent anemia Progress Note: Quality VTE Deep Vein Thrombosis/Pulmonary Embolism Present on Admission: No
[2018-11-27] MEDS: Levothyroxine 125 MCG Tablet PO SCH (05:11)
[2018-11-27] MEDS: Budesonide-Formoterol 160/4.5 MCG 6 GM Inhaler INH SCH (09:28)
[2018-11-27] MEDS: Famotidine 20 MG Tablet PO SCH (09:28)
[2018-11-27] MEDS: Insulin NovoLOG Aspart Correctional Sugar Inj SQ SCH ×3 (09:28→18:22)
--- NOTE | 2018-11-27 11:58 | P.PNGI ---
Subjective Interval history: Patient semi-recumbent in bed Denies any abdominal pain or noted bleeding Daughter present at bedside <Anay Mcdowell - Last Filed: 11/27/18 11:49> Physical Exam Vital signs: Vital Signs 11/26/18 16:00 11/26/18 20:00 11/27/18 00:00 Temperature 98.6 F 98.7 F 98.8 F Pulse Rate 101 H 85 76 Respiratory Rate 18 20 20 Blood Pressure 151/85 H 135/60 128/61 Pulse Oximetry 98 95 95 11/27/18 04:00 11/27/18 08:00 Temperature 98.1 F 97.9 F Pulse Rate 86 79 Respiratory Rate 18 16 Blood Pressure 134/63 131/61 Pulse Oximetry 96 95 Intake & Output 11/26/18 11/27/18 11/27/18 18:59 06:59 18:59 Intake Total 950 / 950 240 / 240 Balance 950 / 950 240 / 240 Intake: Oral 950 / 950 240 / 240 Other: # Voids 4 Date of Last Bowel Movement 11/26/18 11/27/18 # Bowel Movements 2 - Constitutional no acute distress, chronically ill appearing, cooperative - Routine HEENT Exam Head: Present: normocephalic - Routine Respiratory Exam Present: CTA bilaterally. Absent: accessory muscle use - Routine Abdominal Exam Present: soft, normoactive bowel sounds. Absent: tenderness, distended, guarding, firm - Routine Extremities Exam Absent: edema - Routine Skin Exam Present: dry, warm - Routine Neurological Exam Present: alert - Routine Psychiatric Exam Present: normal affect, cooperative <Anay Mcdowell - Last Filed: 11/27/18 11:49> Vital signs: Vital Signs 11/26/18 16:00 11/26/18 20:00 11/27/18 00:00 Temperature 98.6 F 98.7 F 98.8 F Pulse Rate 101 H 85 76 Respiratory Rate 18 20 20 Blood Pressure 151/85 H 135/60 128/61 Pulse Oximetry 98 95 95 11/27/18 04:00 11/27/18 08:00 Temperature 98.1 F 97.9 F Pulse Rate 86 79 Respiratory Rate 18 16 Blood Pressure 134/63 131/61 Pulse Oximetry 96 95 Intake & Output 11/26/18 11/27/18 11/27/18 18:59 06:59 18:59 Intake Total 950 / 950 240 / 240 Balance 950 / 950 240 / 240 Intake: Oral 950 / 950 240 / 240 Other: # Voids 4 Date of Last Bowel Movement 11/26/18 11/27/18 # Bowel Movements 2 <Krish Stewart - Last Filed: 11/27/18 13:08> Results - Labs CBC & Chem 7: 11/26/18 05:00 11/25/18 14:06 Laboratory Results - last 24 hr 11/26/18 11/26/18 11/26/18 12:00 17:27 21:19 POC Glucose 202 H 178 H 161 H 11/27/18 08:16 POC Glucose 156 H <Anay Mcdowell - Last Filed: 11/27/18 11:49> - Labs CBC & Chem 7: 11/26/18 05:00 11/25/18 14:06 Laboratory Results - last 24 hr 11/26/18 11/26/18 11/27/18 17:27 21:19 08:16 POC Glucose 178 H 161 H 156 H 11/27/18 12:21 POC Glucose 168 H <Krish Stewart - Last Filed: 11/27/18 13:08> Assessment and Plan - Plan ASSESSMENT AND PLAN: This is an 83-year-old female patient with difficult communication because of language barrier, who presented with the following problems: 1. Anemia and 1 episode of bleeding per rectum during the hospitalization. 2. Chronic use of Eliquis and anticoagulation for coronary artery disease, pacemaker, and congestive heart failure. 3. Oxygen dependent disease with possible pulmonary edema after blood transfusion. 4. Unable to obtain a previous endoscopic evaluation including endoscopy or colonoscopy at the current time. 5. History of chronic liver disease as per chart suggestive of that possibility in the form of low albumin, high total bilirubin, reversal of AST-ALT ratio. The etiology for her liver disease is unknown to me at this time, but likely secondary to hepatitis C. 6. Hepatitis C positive, unknown if treated before and unknown previous PCR. RECOMMENDATIONS: At the current time, we will continue with cardiopulmonary workup for her pulmonary edema and fluid overload. We will need to obtain some more information regarding her previous endoscopic evaluation. That can be obtained from her granddaughter, who is not available at this time. We will monitor CBC for the time being. Continue IV proton pump inhibitor. Possibly, we will need endoscopic evaluation after clearance by cardiac and pulmonary service, and we will need to hold Eliquis for 48 hours if endoscopy needs to be done. Continue supportive care for the time being. 11/27/2018 Patient awake and alert No reported bleeding Eliquis on hold times 5 days per patient's daughter Per patient's daughter, patient has no history of EGD or colonoscopy in the past , she states patient did not receive cardiology or pulmonary clearance for same. Patient's daughter states they are considering the need for endoscopic procedures based on benefits versus risks. At this time, she states they will hold off with any procedures. States plan discharge home for patient today and will follow-up with PCP. -11/26/2018 hemoglobin 11.0 hematocrit 32.7 Plan -Okay for discharge from GI standpoint -Patient to follow-up with PCP -Continue PPI -Monitor for bleeding-active -Follow-up with GI post discharge as per family decision -Monitor labs hemoglobin and hematocrit- -Cardiology and pulmonary following -Supportive care This patient has been seen by myself and Dr. Stewart and this note is written on his behalf - Attending Attestation Dr. Stewart <Anay Mcdowell - Last Filed: 11/27/18 11:49> - Attending Attestation Agree with above assessment and plan. Will need outpatient follow up. <Krish Stewart - Last Filed: 11/27/18 13:08>
--- NOTE | 2018-11-27 12:23 | ECHRPT ---
Indication: HEART FAILURE CONCLUSIONS Normal left ventricular size. Wall thickness is normal. The left ventricular systolic function is mildly reduced with an estimated ejection fraction in the range of 45- 50%. The left atrial size is upper limits of normal. There is a pacemaker wire present in the right atrial cavity. Trace mitral valve regurgitation. Aortic valve sclerosis is present. Diffuse calcification of the aortic valve. There is mild tricuspid valve regurgitation. Pacemaker wire is present within the right ventricular cavity. The estimated pulmonary arterial pressure is 65 mmHg. Mild pulmonary valve regurgitation. A left sided pleural effusion is present. BP: / HR: Rhythm: Other MEASUREMENTS (Male / Female) Normal Values Technical Quality:Fair, Technically difficult stud y 2D ECHO LV Diastolic Diameter PLAX 4.2 cm 4.2 - 5.9 / 3.9 - 5.3 cm LV Systolic Diameter PLAX 3.4 cm IVS Diastolic Thickness 1.1 cm 0.6 - 1.0 / 0.6 - 0.9 cm LVPW Diastolic Thickness 1.1 cm 0.6 - 1.0 / 0.6 - 0.9 cm LV Relative Wall Thickness 0.5 RV Internal Dim ED PLAX 3.1 cm LVOT Diameter 1.7 cm Aortic Root Diameter 2.5 cm M-MODE AV Cusp Separation MM 1.2 cm DOPPLER AV Peak Velocity 203.0 cm/s AV Peak Gradient 16.5 mmHg AV Mean Gradient 9.0 mmHg AV Velocity Time Integral 43.7 cm LVOT Peak Velocity 81.8 cm/s LVOT Peak Gradient 2.7 mmHg LVOT Velocity Time Integral 17.2 cm AV Area Cont Eq vti 0.9 cm AV Area Cont Eq pk 0.9 cm Mitral E Point Velocity 143.0 cm/s Mitral A Point Velocity 42.9 cm/s Mitral E to A Ratio 3.3 LV E' Lateral Velocity 8.3 cm/s Mitral E to LV E' Lateral Ratio 17.2 LV E' Septal Velocity 6.2 cm/s Mitral E to LV E' Septal Ratio 22.9 TR Peak Velocity 372.0 cm/s TR Peak Gradient 55.4 mmHg Right Atrial Pressure 10.0 mmHg Pulmonary Artery Systolic Pressu 65.4 mmHg Right Ventricular Systolic Press 65.4 mmHg PV Peak Velocity 145.0 cm/s PV Peak Gradient 8.4 mmHg FINDINGS LEFT VENTRICLE Normal left ventricular size. Wall thickness is normal. The left ventricular systolic function is mildly reduced with an estimated ejection fraction in the range of 45- 50%. RIGHT VENTRICLE Normal right ventricular size and systolic function. LEFT ATRIUM The left atrial size is upper limits of normal. RIGHT ATRIUM There is a pacemaker wire present in the right atrial cavity. ATRIAL SEPTUM Normal atrial septal thickness without atrial level shunting by limited color doppler interrogation. AORTA The aortic root and proximal ascending aorta are normal in size on limited imaging. MITRAL VALVE Trace mitral valve regurgitation. AORTIC VALVE Aortic valve sclerosis is present. Diffuse calcification of the aortic valve. TRICUSPID VALVE There is mild tricuspid valve regurgitation. Pacemaker wire is present within the right ventricular cavity. The estimated pulmonary arterial pressure is 65 mmHg. PULMONARY VALVE Mild pulmonary valve regurgitation. VESSELS The inferior vena cava was not well visualized. PERICARDIUM A left sided pleural effusion is present. Valentin Monge MD, FACC (Electronically Signed) Final Date:27 November 2018 12:22
--- NOTE | 2018-11-27 13:03 | P.DS ---
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 Notified:: Service Spoke with:: Katherine Date Notified:: 11/25/18 Time Notified:: 15:52 Ordering Provider: VICTORIANO 11/25/18 20:09 Consult to Gastroenterology Routine Consulting Provider: Krish Stewart Reason for Consultation: Patient with BRBPR - s/p blood transfusion Notified:: Service Spoke with:: zeus Date Notified:: 11/25/18 Time Notified:: 20:40 Ordering Provider: PATRICIA Attending physician on discharge: Emilie Angeles Anticipated date of discharge: 11/27/18 Brief History from admission: 83-year-old female who past medical history of CHF, COPD on chronic oxygen dependent, liver disease, CAD, atrial fibrillation and hypertension was brought to the ED for evaluation of an acute onset of shortness of breath last night. Apparently, per patient's granddaughter she had malfunctioning oxygen tank for at least 30 minutes and went into shortness of breath. While in the ED , patient was found to have H&H of 7.9/23.2 for which she was transfused 2 units packed red blood cell, however this resulted in severe pulmonary conditions requiring diuresis with multiple doses of Lasix. Patient also went to A. fib with RVR requiring IV Cardizem push x several doses. Per patient's granddaughter, during my exam she reported improvement of lower extremity swelling and patient denies any chest pain or shortness of breath. Complains of leg pain. There is no GI bleed. Patient update on day of discharge: Patient seen and examined. Patient states multiple times during my visit that she wants to go home. She states her breathing has returned to baseline. She denies any recurrence of rectal bleeding. She denies any fever or chills. She denies any chest pain. She denies any nausea vomiting or abdominal pain. She reports good appetite. She states she has lots of support at home. DS: Diagnosis Discharge Diagnosis (1) Atrial fibrillation with rapid ventricular response: Status: Acute (2) Anemia: Status: Acute (3) Flash pulmonary edema: Status: Acute (4) Systolic CHF: Status: Acute (5) Rectal bleeding: Status: Acute DS: Summary Patient presented to ED with acute onset of shortness of breath. She is found to be anemic with a hemoglobin of 7.9 and was transferred 2 units packed red blood cells. However this resulted in flash pulmonary edema which required diuresis with multiple doses of Lasix. Patient went into A. fib with RVR requiring IV Cardizem push. Patient resumed on Cardizem digoxin beta-julita and Eliquis. She was started on Bumex 1 mg IV twice daily. Patient was seen in consultation by Dr. Eisenberg of pulmonary medicine. Patient developed moderate amount of bright red blood per rectum. Patient's Eliquis was held. GI was consulted and recommended an endoscopy procedure however patient declined and elected to complete workup as outpatient. Given patient's history of liver disease with possible HCC and recurrent anemia requiring a transfusion this admission patient was seen in consultation by hematology. Patient underwent echocardiogram which revealed EF of 45-50%. Patient advised to follow-up with her regular fit model Dr. Day following discharge. Patients Eliquis was discontinued. Time Spent with Patient Total time spent providing and/or coordinating discharge services: >30mins Greater than 30 minutes Status at Discharge Functional status at discharge: uses cane/walker Overall status at discharge: patient is back to baseline Quality: VTE Deep Vein Thrombosis/Pulmonary Embolism Present on Admission: No Exam Narrative Exam Narrative: GENERAL: Well-nourished, well-developed elderly female in no apparent distress. Awake and alert. Appears comfortable. SKIN: Warm and dry. No generalized rash. HEENT: Atraumatic. Normocephalic. Bilateral sclera anicteric. EOMI. No nasal drainage noted. MMM. Airway patent. CARDIOVASCULAR: Irregular RESPIRATORY: No accessory muscle use. Clear to auscultation. Breath sounds equal bilaterally. GASTROINTESTINAL: Abdomen soft, non-tender, nondistended. MUSCULOSKELETAL: Extremities without clubbing, cyanosis, or edema. No obvious deformities. NEUROLOGICAL: Awake and alert. No obvious cranial nerve deficits. Motor grossly within normal limits. Normal speech. PSYCHIATRIC: Appropriate mood and affect; insight and judgment normal. Results Labs on day of discharge: Labs from last 24 hours 11/27/18 11/27/18 11/26/18 12:21 08:16 21:19 POC Glucose 168 H 156 H 161 H 11/26/18 17:27 POC Glucose 178 H Impressions ITS Impressions Chest X-Ray 11/24/18 02:40 CONCLUSION: Bibasilar consolidation and small effusions. Discharge Plan Discharge Disposition Patient Disposition: 01 Discharge Home Discharge Condition Condition: Stable Discharge Order Discharge Orders: Discharge Order (Routine); Ordered 11/27/18 Ordered By: Anna Marie Schaefer Discharge Details Anticipated Discharge Date: 11/27/18 Discharge Comment: Discharge pending echo results and Hem/Onc clearance Physicians Team Primary Care Provider: UNKNOWN, Attending Provider: Emilie Angeles Other Providers: Bandar Queen ; Oscar Eisenberg ; Krish Stewart Rxs /Orders / Referrals /Forms Prescriptions: Continue albuterol sulfate [ProAir HFA] 90 mcg/actuation Hfa Aerosol Inhaler 2 puff INHALATION Q4-6H PRN (Reason: Bronchospasm) RF: 0 insulin aspart U-100 [Novolog PenFill U-100 Insulin] 100 unit/mL Cartridge 1 sliding scale dose SUBCUT UD PRN (Reason: Blood Sugar Management) RF: 0 arformoterol [Brovana] 15 mcg/2 mL Solution For Nebulization 1 puff INHALATION BID RF: 0 budesonide-formoterol [Symbicort] 160-4.5 mcg/actuation Hfa Aerosol Inhaler 2 puff INHALATION BID RF: 0 insulin degludec [Tresiba FlexTouch U-100] 100 unit/mL (3 mL) Insulin Pen 20 unit SUBCUT DAILY RF: 0 ferrous gluconate 270 mg (27 mg iron) Tablet 270 mg PO DAILY RF: 0 ipratropium-albuterol 0.5 mg-3 mg(2.5 mg base)/3 mL Solution For Nebulization 3 ml INHALATION Q12HR RF: 0 levothyroxine 125 mcg Tablet 125 mcg PO DAILY RF: 0 digoxin [Lanoxin] 125 mcg Tablet 0.125 mg PO EVERY OTHER DAY RF: 0 metoprolol succinate [Toprol XL] 25 mg Tablet Extended Release 24 Hr 25 mg PO Q12HR RF: 0 sucralfate [Carafate] 1 gram Tablet 1 g PO Q6H RF: 0 ranitidine HCl [Zantac] 150 mg Tablet 150 mg PO DAILY RF: 0 bumetanide 1 mg tablet 1 mg PO BID Qty: 0 RF: 0 diltiazem HCl 180 mg Capsule,Ext.Rel 24h Degradable 180 mg PO TID RF: 0 sitagliptin [Januvia] 100 mg Tablet 50 mg PO DAILY RF: 0 Discontinued apixaban [Eliquis] 2.5 mg Tablet 2.5 mg PO BID RF: 0 Referrals: [facility] [Outside] - See Instructions ( Please call the physician' s office to book the appointment to be seen within one week.) Primary Care Provider [Outside] - See Instructions ( Please call the physician's office to book the appointment to be seen within one week.) UNKNOWN, [Primary Care Provider] - See Instructions ( Please call the physician's office to book the appointment to be seen within one week.) Discharge Instructions Patient Printed Instructions: Chest Pain (ED), Gastrointestinal Bleeding (GEN) , Colonoscopy (GEN) Status ED Status: Left Department Discharge Information Discharge Date/Time: 11/27/18 18:40
[2018-11-27 17:48] LABS: Baso % (Auto) 0.3 % (0.0-2.0); Eos % (Auto) 0.6 % (0.0-4.0); Hematocrit 32.7 % (35.0-46.0); Hemoglobin 10.9 gm/dL (11.6-15.3); Lymph # (Auto) 0.8 th/mm3 (1.0-4.8); Lymph % (Auto) 11.4 % (9.0-44.0); Mean Corpuscular HGB Conc 33.3 % (32.0-36.0); Mean Corpuscular Hemoglobin 30.5 pg (27.0-34.0); Mean Corpuscular Volume 91.5 fL (80.0-100.0); Mean Platelet Volume 8.8 fL (7.0-11.0); Mono # (Auto) 0.9 th/mm3 (0.0-0.9); Neut # (Auto) 5.4 th/mm3 (1.8-7.7); Neut % (Auto) 74.7 % (16.0-70.0); Platelet Count 112 th/mm3 (150-450); Red Blood Count 3.57 mil/mm3 (4.00-5.30); Red Cell Distribution Width 17.9 % (11.6-17.2); White Blood Count 7.3 th/mm3 (4.0-11.0)
--- NOTE | 2018-11-27 18:27 | P.PNPL ---
Subjective Interval history: 83 YO female with COPD,CHF,AF, anemia Has some blood in stool GI consulted Breathing better Daughter at Physical Exam Vital signs: Vital Signs 11/26/18 20:00 11/27/18 00:00 11/27/18 04:00 Temperature 98.7 F 98.8 F 98.1 F Pulse Rate 85 76 86 Respiratory Rate 20 20 18 Blood Pressure 135/60 128/61 134/63 Pulse Oximetry 95 95 96 11/27/18 08:00 11/27/18 12:00 11/27/18 16:00 Temperature 97.9 F 98.2 F 98.2 F Pulse Rate 79 85 88 Respiratory Rate 16 16 16 Blood Pressure 131/61 139/81 133/63 Pulse Oximetry 95 98 98 Intake & Output 11/26/18 11/27/18 11/27/18 18:59 06:59 18:59 Intake Total 950 / 950 240 / 240 Balance 950 / 950 240 / 240 Intake: Oral 950 / 950 240 / 240 Other: # Voids 4 Date of Last Bowel Movement 11/26/18 11/27/18 # Bowel Movements 2 GENERAL: Elderly female NAD SKIN: Warm and dry. HEAD: Normocephalic. EYES: No scleral icterus. No injection or drainage. NECK: Supple, trachea midline. No JVD or lymphadenopathy. CARDIOVASCULAR: Regular rate and rhythm without murmurs, gallops, or rubs. RESPIRATORY: Breath sounds equal bilaterally. No accessory muscle use. GASTROINTESTINAL: Abdomen soft, non-tender, nondistended. MUSCULOSKELETAL: No cyanosis, or edema. BACK: Nontender without obvious deformity. No CVA tenderness. Assessment and Plan - Plan IMPRESSION: 1. COPD. She is oxygen dependent. 2. Small pleural effusion. 3. Congestive heart failure. 4. Atrial fibrillation. 5. Anemia. 6. History of hepatitis C. PLAN: Aerosol nebs Monitor H/H Supplement 02 DW pt and GD at GI Work up underway Stable from Pulm standpoint.
--- NOTE | 2018-11-27 18:52 | MB ---
cc: Bandar Queen MD DATE: 11/27/2018 REQUESTING PHYSICIAN: Hospitalist REASON FOR CONSULTATION: Evaluation of anemia. HISTORY OF PRESENT ILLNESS: This is an 83-year-old lady who is known to me for evaluation in office for anemia. She has had a history of chronic anemia with a rectal bleed and has been on Eliquis, which has been recently stopped. She then was admitted with a recent episode of rectal bleeding, and hemoglobin 7.9 on 09/24/2018. She was transfused and her hemoglobin came up to 12.2 on 11/25/2018 and 10.9 on 11/25/2018 at 8:45 p.m. The patient has asked to be seen by me prior to discharge from the hospital. She is accompanied by her granddaughter at the bedside who speaks Sinhala. She was seen in my office about a month ago and was recommended to have a colonoscopy, which the patient and daughter advised me was attempted and she was told in consultation with the clinical research tech that it was difficult as she could not be sedated. Currently, Mrs. Ortiz is doing well and wants to go home as soon as possible. She is anxious to go home. Other than that, she does not have any new complaints. She has chronic fatigue and she had 1 episode of bright red blood per rectum after evaluation in the emergency room, and subsequently did not have any further bleeding. REVIEW OF SYSTEMS: Negative for headaches or blackouts. No chest pains or palpitations. She has no cough or hemoptysis. No abdominal pain, distention, nausea, vomiting, or hematemesis. No frequency, urgency or hematuria. No fevers, night sweats, or recent weight loss. PAST MEDICAL HISTORY: She has a history of COPD, oxygen requiring, and atrial fibrillation, status post pacemaker implantation, and history of CHF, psoriasis, chronic liver disease and hepatitis C, possible cirrhosis. She has a history of myocardial infarction. PAST SURGICAL HISTORY: Cholecystectomy and coronary artery stent placement. FAMILY HISTORY: Noncontributory. SOCIAL HISTORY: Nonsmoker, non-alcohol abuser. MEDICATIONS: Reviewed. PHYSICAL EXAMINATION: GENERAL: Elderly lady, currently in no acute distress. VITAL SIGNS: Stable. She is afebrile. Pallor present. No icterus OR redness in the neck or axilla. Alert and oriented x 4, nonfocal. No JVD. CARDIOVASCULAR: S1, S2, regular rate and rhythm. LUNGS: Clear with decreased air entry to the bases. No expiratory wheezes. Patient is on oxygen. ABDOMEN: Soft with hepatosplenomegaly. EXTREMITIES: No edema, no evidence of DVTs. LABORATORY DATA: Labs reviewed as mentioned above. ASSESSMENT AND PLAN: Elderly lady with chronic gastrointestinal bleed secondary to Eliquis. The patient has been counseled that she could have a rectal tumor that is bleeding when she is on Eliquis, but currently she is off Eliquis and she has not had a colonoscopy. Hence, would recommend she follow up at this time. Even if colonoscopy documented a tumor, family did not wish to go for aggressive therapy. This was mentioned to me in the office visit 3 weeks ago. Either way, her hemoglobin is improved to near normal at this time with blood transfusion and she is not actively bleeding off Eliquis. Hence, she can be discharged home and will follow up in the office as she already has a scheduled CBC to be performed in my office on 11/27/2018. Discussed with the patient's granddaughter. I will seen her in followup in the office. MD RAYSA Andres/forrest/do , 05:44 PM , 05:57 PM [place]
== END 2018-11-27 18:40 | disposition home or self-care (01) | DRG 377 ==
LOC: NEPE 01:30 → NEDA 01:30 → NEPGCP 16:07
PROVIDERS: ADMIT Family Medicine; ATTEND Family Medicine
DX: K92.1 Melena; Z79.890 Hormone replacement therapy; D69.59 Other secondary thrombocytopenia; Y92.9 Unspecified place or not applicable; I25.2 Old myocardial infarction; Z82.49 Family history of ischemic heart disease and other diseases of the circulatory system; R16.0 Hepatomegaly, not elsewhere classified; Z88.0 Allergy status to penicillin; E87.6 Hypokalemia; T45.515A Adverse effect of anticoagulants, initial encounter; D64.89 Other specified anemias; Z91.041 Radiographic dye allergy status; K74.60 Unspecified cirrhosis of liver; Z79.51 Long term (current) use of inhaled steroids; Z95.0 Presence of cardiac pacemaker; E11.22 Type 2 diabetes mellitus with diabetic chronic kidney disease; B19.20 Unspecified viral hepatitis C without hepatic coma; I13.0 Hypertensive heart and chronic kidney disease with heart failure and stage 1 through stage 4 chronic kidney disease, or unspecified chronic kidney disease; Z99.81 Dependence on supplemental oxygen; I48.91 Unspecified atrial fibrillation; Z79.01 Long term (current) use of anticoagulants; Z90.49 Acquired absence of other specified parts of digestive tract; T80.89XA Other complications following infusion, transfusion and therapeutic injection, initial encounter; N18.3 Chronic kidney disease, stage 3 (moderate); D68.32 Hemorrhagic disorder due to extrinsic circulating anticoagulants; I50.23 Acute on chronic systolic (congestive) heart failure; Z79.4 Long term (current) use of insulin; E87.70 Fluid overload, unspecified; J44.9 Chronic obstructive pulmonary disease, unspecified; I25.10 Atherosclerotic heart disease of native coronary artery without angina pectoris; R11.2 Nausea with vomiting, unspecified; Z95.5 Presence of coronary angioplasty implant and graft
CPT/HCPCS: 36430; 71010; 71045; 80053; 80162; 82248; 82550; 82948; 82962; 83520; 83880; 84484; 85014; 85018; 85025; 86077; 86850; 86870; 86880; 86900; 86901; 86902; 86920; 86922; 90761; 90774; 90775; 90776; 90784; 93005; 93306; 96361; 96374; 96375; 96376; 97162; 99285; C8952; G0378; J1815; J1940; J2405; J7050; P9016